=== PATIENT | male | born 1960 | race Caucasian/White ===

== ENCOUNTER 2019-12-02 09:02 | Inpatient (IN) | payer BC, MEDICAID ==
[~2019-12-02] VITALS: Ht 167.6 cm; Wt 73.0 kg
[2019-12-02 08:58] VITALS: BP 103/52
--- NOTE | 2019-12-02 09:00 | NUR ---
ED Nurse Note: pT ARRIVED WITH RA 861 DUE TO BURNING UPON URINATION. PT STATES HE HAS UETHRAL CANCER. PT HAS SUPRAPUBIC CATH, APPEARS TO BE INFECTED WITH FOULD SMELL AND WHITE-YELLOWISH DRAINAGE. PT REPORTS IT HAS BEEN LIKE THIS FOR MONTHS. PT APPEARS TO HAVE NO PENILE GLAND
[2019-12-02] MEDS ORDERED: HIV med (09:14)
[2019-12-02] MEDS ORDERED: ALEVE220 M2 PO (09:14)
[2019-12-02] MEDS ORDERED: NORCO 10-325 T1 EACH ORAL (09:14)
[2019-12-02] MEDS ORDERED: Omnipaque-300 100ml vial INJ ONE (09:15)
[2019-12-02] MEDS ORDERED: Vancomycin 1 GM in NS 275 ML IV ONE (09:15)
[2019-12-02] MEDS ORDERED: Piperacillin/Tazobactam 3.375 GM in NS 110 ML IVPB ONE (09:15)
--- NOTE | 2019-12-02 09:17 | Emergency Room Report ---
History of Present Illness General Chief Complaint: Male Urogenital Problems Source: Patient Present Illness HPI Disclaimer: Please note that this report is being documented using DRAGON technology. This can lead to erroneous entry secondary to incorrect interpretation by the dictating instrument. HPI: 59-year-old male history of HIV on retroviral therapy, urethral cancer brought in for evaluation of penile discharge and groin pain. Patient has undergone chemotherapy, immunotherapy, radiation therapy for treatment of urethral cancer. He has a suprapubic catheter in place. Reports increased purulent output as well as pain in the scrotum and groin with increased purulent drainage. He has a prior history of fistulous around the penis. Was scheduled to see infectious disease specialist but is not yet been able to make an appointment. Denies fever, chills, vomiting. Denies chest pain, shortness of breath, cough. 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 EOMI. Cardiovascular: Mildly tachycardic. S1 and S2 normal. No murmur appreciated Resp: Normal work of breathing. No cough, wheezing or crackles appreciated Abdomen: Abdomen is soft, nondistended. Suprapubic catheter in place with mild surrounding erythema and crusted skin around the ostomy. Somewhat purulent and cloudy appearing urine. : The penis is somewhat necrotic in appearance with purulent drainage on all sides. Tender to palpation with surrounding erythema and edema in the groin. Scrotum is edematous and erythematous. Skin: Intact. No abrasions, laceration or rash over the exposed skin MSK: Normal tone and bulk. Moving all extremities. No obvious deformity. Neuro: Awake and alert. Mentating appropriately. Procedures Critical Care Time Critical Care Time Total critical care time: Approximately 45 minutes Due to a high probability of clinically significant, life threatening deterioration, the patient required the highest level of preparedness to intervene emergently and I personally spent this critical care time directly and personally managing the patient. This critical care time included obtaining a history, examining the patient, pulse oximetry, ordering and reviewing studies, ordering treatments, evaluating response to treatment and updating management plan as needed, frequent reassessment and discussion with other providers as we ll as arranging for ultimate disposition. This critical to care time was performed to assess and manage the high probability of life-threatening deterioration that could result in multiorgan failure. This critical care time is separate from the separately billable procedures and treating other patients. Medical Decision Making Diagnostic Impression: Primary Impression: Abscess Additional Impressions: Sepsis Catheter-associated urinary tract infection ER Course 59-year-old male with history of HIV currently undergoing treatment for urethral cancer with suprapubic catheter in place presents for evaluation of groin pain and drainage. Concern for sepsis, abscess, multiple fistulas, necrotizing infection, UTI among others. IV line established patient receiving sepsis level fluids, broad-spectrum antibiotics, culture sent as well as broad labs. White count elevated. Lactate within normal limits. CT pending. The patient received broad-spectrum antibiotics, IV fluids and was pancultured. Urine appears grossly infected. Patient require admission for further care. Admitted to panel physician, Dr. Flores Laboratory Tests Test 12/02/19 09:10 12/02/19 09:20 White Blood Count 11.5 K/UL (4.8-10.8) H Red Blood Count 2.14 M/UL (4.70-6.10) L Hemoglobin 7.9 G/DL (14.2-18.0) L Hematocrit 20.3 % (42.0-52.0) L Mean Corpuscular Volume 95 FL (80-99) Mean Corpuscular Hemoglobin 37.0 PG (27.0-31.0) H Mean Corpuscular Hemoglobin Concent 38.9 G/DL (32.0-36.0) H Red Cell Distribution Width 18.3 % (11.6-14.8) H Platelet Count 567 K/UL (150-450) H Mean Platelet Volume 5.4 FL (6.5-10.1) L Neutrophils (%) (Auto) % (45.0-75.0) Lymphocytes (%) (Auto) % (20.0-45.0) Monocytes (%) (Auto) % (1.0-10.0) Eosinophils (%) (Auto) % (0.0-3.0) Basophils (%) (Auto) % (0.0-2.0) Differential Total Cells Counted 100 Neutrophils % (Manual) 84 % (45-75) H Lymphocytes % (Manual) 8 % (20-45) L Monocytes % (Manual) 7 % (1-10) Eosinophils % (Manual) 1 % (0-3) Basophils % (Manual) 0 % (0-2) Band Neutrophils 0 % (0-8) Platelet Estimate Increased H Platelet Morphology Normal Anisocytosis 1+ Prothrombin Time 11.7 SEC (9.30-11.50) H Prothrombin Time INR 1.1 (0.9-1.1) Activated Partial Thromboplast Time 34 SEC (23-33) H Sodium Level 134 MMOL/L (136-145) L Potassium Level 3.5 MMOL/L (3.5-5.1) Chloride Level 98 MMOL/L (98-107) Carbon Dioxide Level 26 MMOL/L (21-32) Anion Gap 10 mmol/L (5-15) Blood Urea Nitrogen 19 mg/dL (7-18) H Creatinine 1.3 MG/DL (0.55-1.30) Estimated Glomerular Filtration Rate 56.3 mL/min (>60) Glucose Level 103 MG/DL (74-106) Lactic Acid Level 1.10 mmol/L (0.4-2.0) Calcium Level 10.0 MG/DL (8.5-10.1) Phosphorus Level 2.8 MG/DL (2.5-4.9) Magnesium Level 1.9 MG/DL (1.8-2.4) Total Bilirubin 0.3 MG/DL (0.2-1.0) Aspartate Amino Transferase (AST) 41 U/L (15-37) H Alanine Aminotransferase (ALT) 28 U/L (12-78) Alkaline Phosphatase 72 U/L (46-116) Total Creatine Kinase 406 U/L (26-308) H Creatine Kinase MB 12.5 NG/ML (0.0-3.6) H Creatine Kinase MB Relative Index 3.0 Troponin I 0.000 ng/mL (0.000-0.056) Total Protein 7.1 G/DL (6.4-8.2) Albumin 2.6 G/DL (3.4-5.0) L Globulin 4.5 g/dL Albumin/Globulin Ratio 0.6 (1.0-2.7) L Urine Color Pale yellow Urine Appearance Clear Urine pH 5 (4.5-8.0) Urine Specific [place] 1.015 (1.005-1.035) Urine Protein Negative (NEGATIVE) Urine Glucose (UA) Negative (NEGATIVE) Urine Ketones Negative (NEGATIVE) Urine Blood 1+ (NEGATIVE) H Urine Nitrite Positive (NEGATIVE) H Urine Bilirubin Negative (NEGATIVE) Urine Urobilinogen Normal MG/DL (0.0-1.0) Urine Leukocyte Esterase 3+ (NEGATIVE) H Urine RBC 0-2 /HPF (0 - 0) H Urine WBC 5-10 /HPF (0 - 0) H Urine Squamous Epithelial Cells None /LPF (NONE/OCC) Urine Bacteria Moderate /HPF (NONE) H EKG Diagnostic Results Troponin ordered: Yes When was troponin ordered?: Dec 02, 2019 EKG Time: 09:25 Rate: tachycardiac Rhythm: NSR ST Segments: no acute changes Other Impression Sinus rhythm, normal axis, prolonged QTc interval at [address] segment changes Rhythm Strip Diag. Results Rhythm Strip Time: 09:25 EP Interpretation: yes Rate: 99 Rhythm: NSR, no PVC's, no ectopy Last Vital Signs Date Time Temp Pulse Resp B/P (MAP) Pulse Ox O2 Delivery O2 Flow Rate FiO2 12/02/19 08:58 98.3 105 18 103/52 99 Room Air Disposition: ADMITTED INPATIENT Condition: Serious Tyson Caraballo MD Dec 02, 2019 09:17
--- NOTE | 2019-12-02 09:20 | NUR ---
ED Nurse Note: BLOOD AND URINE SPECIMEN SENT TO LAB
[2019-12-02] MEDS ORDERED: Sodium Chloride 2,200 ML IVLG ONE (09:30)
[2019-12-02 09:33] LABS: HEMATOCRIT 20.3 % (42.0-52.0); HEMOGLOBIN 7.9 G/DL (14.2-18.0); MEAN CORPUSCULAR VOLUME 95 FL (80-99); PLATELET COUNT 567 K/UL (150-450); RED BLOOD COUNT 2.14 M/UL (4.70-6.10); RED CELL DISTRIBUTION WIDTH 18.3 % (11.6-14.8); WHITE BLOOD COUNT 11.5 K/UL (4.8-10.8)
[2019-12-02] MEDS ORDERED: HYDROcodone/Acetamin 10/325 tab ONE (09:33)
[2019-12-02 09:41] LABS: CREATININE 1.3 MG/DL (0.55-1.30); POTASSIUM 3.5 MMOL/L (3.5-5.1)
[2019-12-02] MEDS ORDERED: HYDROcodone/Acetamin 10/325 tab ORAL ONE (09:45)
[2019-12-02 09:46] LABS: INR 1.1 (0.9-1.1)
[2019-12-02 09:55] LABS: ALBUMIN 2.6 G/DL (3.4-5.0); ALBUMIN/GLOBULIN RATIO 0.6 (1.0-2.7); BILIRUBIN,TOTAL 0.3 MG/DL (0.2-1.0); CKMB 12.5 NG/ML (0.0-3.6); PHOSPHORUS 2.8 MG/DL (2.5-4.9)
[2019-12-02 10:30] LABS: APPEARANCE,URINE CLEAR; BILIRUBIN, URINE NEGATIVE (NEGATIVE); COLOR,URINE PALE YELLOW; GLUCOSE, URINE (UA) NEGATIVE (NEGATIVE); KETONES,URINE NEGATIVE (NEGATIVE); LEUKOCYTE ESTERASE ,URINE 3+ (NEGATIVE); NITRITE,URINE POSITIVE (NEGATIVE); PH,URINE 5 (4.5-8.0); PROTEIN,URINE NEGATIVE (NEGATIVE); UROBILINOGEN,URINE NORMAL MG/DL (0.0-1.0)
--- NOTE | 2019-12-02 10:31 | NUR ---
ED Nurse Note: pt RETURNED FROM CT
--- NOTE | 2019-12-02 11:01 | NUR ---
ED Nurse Note: Pt in bed asleep
[2019-12-02 11:17] VITALS: BP 107/58
--- NOTE | 2019-12-02 11:53 | Diagnostic Imaging Report ---
EXAM: CT CT Abdomen Pelvis w/Contrast INDICATION: History of urethral cancer status post chemotherapy and radiation therapy. Groin pain and penile discharge. Purulent output from suprapubic catheter. COMPARISON: None TECHNIQUE: Axial images were obtained through the abdomen pelvis with intravenous contrast. Sagittal and coronal reformats are generated. All CT scans at this facility are performed using dose modulation techniques as appropriate to a performed exam including the following: automated exposure control with adjustment of the mA and/or kV according to patient size. RADIATION DOSE: CTDIvol: 5.1 mGy DLP: 290.1 mGy-cm Dose information generated by the CT scanner is available in PACS. FINDINGS: The lung bases are clear. The liver and spleen are homogeneous. Gallbladder is without sludge or stone and there is no wall thickening. The pancreas is unremarkable. Adrenals are normal in morphology. The kidneys are normal in size, shape and axis. Small bowel loops are nondistended. Increased stool lucencies noted throughout the colon. The appendix is not visualized. There is no free fluid or free air. No pathologic adenopathy demonstrated. There is a suprapubic catheter identified in the bladder which otherwise appears unremarkable. It is difficult to define normal anatomy in the region of the patient's penis lobulated soft tissue density noted perhaps reflecting the patient's primary malignancy. There appears to be an anterior open wound. Mottled fluid and air lucency noted tracking to the base of the penis. The entire conglomeration measures 9.6 x 6.2 cm and it is difficult to separate from possible focal mass or infection. Some fluid is identified in the scrotum. IMPRESSION: SIGNIFICANT ALTERATION OF NORMAL ANATOMY IN THE REGION OF THE PATIENT'S PENIS WITH LOBULATED SOFT TISSUE DENSITY, FLUID DENSITY AND MOTTLED TRACKING AIR LUCENCIES EXTENDING TO THE BASE OF THE PENIS. THERE APPEARS TO BE AN ANTERIOR OPEN WOUND. FINDINGS LIKELY REFLECT COMBINATION OF THE PATIENT'S PRIMARY MALIGNANCY AND POSSIBLE SUPERIMPOSED INFECTION. SUPRAPUBIC CATHETER IN PLACE.
--- NOTE | 2019-12-02 12:07 | NUR ---
ED Nurse Note: Pt has no change in status, pt still asleep snoring. pt vss, additional blanket provided, lights dimmed for pt comfort.
[2019-12-02 13:02] VITALS: BP 103/52
--- NOTE | 2019-12-02 13:24 | NUR ---
ED Nurse Note: REPORT GIVEN TO MADAN RILEY FOR CONTINUITY OF CARE
--- NOTE | 2019-12-02 13:24 | NUR ---
TRANSFER TO FLOOR: Patient transferred to [facility] as ordered, per ERMD. Report given to MADAN ECKERT. Belongings given to PT.
--- NOTE | 2019-12-02 14:09 | NUR ---
NURSE NOTES: Report received from Key HAGER. Patient admitted from ER, AxOx4, not in distress, pt reports pain on movement in the crotch area radiating to the back, last given PO [place] in ER at 9am. Hooked to telemetry box. PIV on left AC patent and intact. Suprapubic catheter noted on left lower abdomen, draining foul-smelling yellow urine to urine leg bag. Bag changed and replaced with adame bag. Skin is intact. Penile area noted with necrotic tissue and slough like tissue surrounding glans. Scrotum edematous, skin around groin noted with erythema and warm to touch. Dr. Flores informed of admission and awaiting orders. Bed low and locked, siderails up x2, alarms on zone 1, call light placed within reach and instructed to call nurse for assistance. Will continue with plan of care.
[2019-12-02] MEDS ORDERED: HYDROcodone/Acetamin 5/325 tab ORAL PRN (15:00)
[2019-12-02] MEDS: HYDROcodone/Acetamin 10/325 tab ORAL PRN (15:25)
[2019-12-02] MEDS: Piperacillin/Tazobactam 3.375 GM in NS 110 ML IVPB SCH (16:19)
[2019-12-02] MEDS ORDERED: valACYclovir HCL 500mg tab ORAL SCH (18:22)
[2019-12-02] MEDS: SYMTUZA ORAL SCH (18:43)
--- NOTE | 2019-12-02 19:11 | NUR ---
NURSE HAND-OFF REPORT: Important Events on Shift: Wound noted and culture sent Patient Status: stable Diet: reg Pending Orders: n/a Pending Results/Labs: n/a Pending MD notification:n/a Latest Vital Signs: Temperature 98.4 , Pulse 90 , B/P 110 /56 , Respiratory Rate 19 , O2 SAT 100 , Room Air, O2 Flow Rate . Vital Sign Comment: stable EKG Rhythm: Sinus Rhythm Rhythm change?: N MD Notified?: - MD Response: Latest Rahman Fall Score: 20 Fall Risk: Low Risk Safety Measures: Call light Within Reach, Bed Alarm Zone 1, Side Rails Side Rails x2, Bed position Low and Locked. Fall Precautions: Patient Fall Education Report given to Dede RN.
--- NOTE | 2019-12-02 19:15 | NUR ---
NURSE NOTES: Pt received from MADAN Garcia and MADAN Rider alert and oriented x4. On room air with no acute s/s of distress at the bedside. Suprapubic catheter draining to yellow urine, with notable necrosis and slough on penis and surrounding structures. IV site asymptomatic and patent on L ac 18g, running to Zosyn as ordered. Bed in lowest position, bed alarm on. Educated pt on fall precautions, pt verbalized understanding. driver sales on - Sinus Rhythm (90s). Call light and belongings within reach.
[2019-12-02 20:00] VITALS: BP 104/56
[2019-12-02] MEDS: Vancomycin 750 MG in NS 275 ML IVPB SCH (20:19)
[2019-12-02] MEDS: valACYclovir HCL 500mg tab ORAL SCH (20:19)
[2019-12-02] MEDS: Heparin 5000 units/ml inj SUBQ SCH (20:20)
--- NOTE | 2019-12-02 21:43 | NUR ---
NURSE NOTES: Notified by MADAN Rider that inpatient med pharmacy tags were unable to be placed in chart during the morning. This RN printed out pharmacy tags (#[id number], #[id number]) accordingly and placed in patient's chart.
--- NOTE | 2019-12-02 23:30 | History and Physical Report ---
DATE OF ADMISSION: 12/02/2019 REASON FOR ADMISSION: History of urethral cancer with suprapubic catheter with purulent drainage. HISTORY OF PRESENT ILLNESS: This is a 59-year-old male with history of HIV, on retroviral therapy. The patient is with a history of urethral cancer. The patient with significant discharge, groin pain. The patient has undergone chemotherapy, maintenance therapy, radiation therapy, currently has a suprapubic catheter in place. The patient notes a fair amount of output from the fistula around the penis. PAST MEDICAL HISTORY: Notable for urethral cancer, HIV, status post the above, history of suprapubic catheter. ALLERGIES: Codeine. SOCIAL HISTORY: Reviewed. Nonsmoker and nondrinker. Disabled. PHYSICAL EXAMINATION: GENERAL: The patient is an ill-appearing male. VITAL SIGNS: Reviewed. Blood pressure 110/36, pulse 83, respirations 19, temperature 94. HEENT: Negative. NECK: Supple. No adenopathy. LUNGS: Fairly clear overall. CARDIAC: S1, S2. Regular rate and rhythm. ABDOMEN: Soft, nontender. GENITOURINARY: Significant penile discharge, suprapubic catheter. EXTREMITIES: No cyanosis, clubbing, or edema. LABORATORY DATA: Reviewed. Albumin is 2.6. Hemoglobin 7.9, white count 11.5, platelets of 567. CT with an open wound reflecting primary malignancy and possible superimposed infection. IMPRESSION: Penile abscess, possible sepsis, catheter-associated urinary tract infection, status post chemotherapy, radiation therapy for urethral cancer, HIV. RECOMMENDATION: IV antibiotics. ID evaluation. Surgical evaluation. Consider urological evaluation. DVT prophylaxis. Pain control. Follow up labs and exam. Monitor nutrition. Stabilize and discharge once improved. Amado Flores M.D. DR: GENE JOB#: [id number] CC: MARQUES
[2019-12-03] VITALS: BP 104/54
[2019-12-03] MEDS: Piperacillin/Tazobactam 3.375 GM in NS 110 ML IVPB SCH ×3 (00:17→16:42)
--- NOTE | 2019-12-03 00:20 | NUR ---
NURSE NOTES: Pt's temperature elevated during VS check at 0000 - 102.0. RN administered Tylenol 650 mg PRN and administered cooling measures. Will reassess temperature at a later time, will continue to monitor pt.
--- NOTE | 2019-12-03 01:33 | NUR ---
NURSE NOTES: Temperature reassessed - 100.2.
[2019-12-03 07:18] LABS: CALCIUM 8.6 MG/DL (8.5-10.1); CREATININE 1.3 MG/DL (0.55-1.30); POTASSIUM 3.4 MMOL/L (3.5-5.1)
--- NOTE | 2019-12-03 07:20 | NUR ---
NURSE HAND-OFF REPORT: Important Events on Shift: Patient had elevated temperature of 102.0 at 0017, administered Tylenol and cooling measures. Patient Status: Stable Diet: Regular Pending Orders: N/A Pending Results/Labs: N/A Pending MD notification: N/A Latest Vital Signs: Temperature 100.2 , Pulse 89 , B/P 104 /54 , Respiratory Rate 20 , O2 SAT 97 , Room Air, O2 Flow Rate . Vital Sign Comment: WNL EKG Rhythm: Sinus Rhythm Rhythm change?: N MD Notified?: - MD Response: Latest Rahman Fall Score: 20 Fall Risk: Low Risk Safety Measures: Call light Within Reach, Bed Alarm Zone 2, Side Rails Side Rails x2, Bed position Low and Locked. Fall Precautions: Yes Yellow Socks Yellow Gown Door Sign Patient Fall Education Report given to MADAN Dupont.
--- NOTE | 2019-12-03 07:42 | NUR ---
NURSE NOTES: Report received from Paulo HAGER. Patient awake and alert x4, not in distress, no pain, now afebrile. PIV on MICHELLE patent and intact. Suprapubic catheter noted secured and draining well. Bed low and locked, siderails up x2, call light placed within reach. Will continue to monitor.
[2019-12-03] MEDS: SYMTUZA ORAL SCH (08:14)
[2019-12-03] MEDS: valACYclovir HCL 500mg tab ORAL SCH (08:14)
[2019-12-03] MEDS: HYDROcodone/Acetamin 10/325 tab ORAL PRN ×3 (08:16→18:20)
[2019-12-03] MEDS: Heparin 5000 units/ml inj SUBQ SCH ×2 (08:18→21:22)
[2019-12-03 08:25] LABS: HEMATOCRIT 21.8 % (42.0-52.0); HEMOGLOBIN 7.2 G/DL (14.2-18.0); MEAN CORPUSCULAR VOLUME 87 FL (80-99); PLATELET COUNT 482 K/UL (150-450); RED BLOOD COUNT 2.49 M/UL (4.70-6.10); RED CELL DISTRIBUTION WIDTH 15.1 % (11.6-14.8); WHITE BLOOD COUNT 9.8 K/UL (4.8-10.8)
--- NOTE | 2019-12-03 08:29 | NUR ---
NURSE NOTES: Left message on answering service of Dr. Amado Flores notifying that patient is requesting additional pain medication.
[2019-12-03] MEDS ORDERED: HYDROcodone/Acetamin 10/325 tab ORAL PRN (08:45)
--- NOTE | 2019-12-03 08:49 | General Progress Note ---
Subjective Allergies: Coded Allergies: CODEINE (Verified Allergy, Unknown, 02/05/10) Subjective has pain noted fevers Objective Last 24 Hour Vital Signs Date Time Temp Pulse Resp B/P (MAP) Pulse Ox O2 Delivery O2 Flow Rate FiO2 12/03/19 04:00 89 12/03/19 01:34 100.2 12/03/19 00:47 100.2 12/03/19 00:00 99 12/03/19 00:00 102.0 101 20 104/54 (71) 97 12/02/19 21:00 Room Air 12/02/19 20:00 96 12/02/19 20:00 98.9 97 20 104/56 (72) 95 12/02/19 16:00 90 12/02/19 14:07 Room Air 12/02/19 13:25 98.4 82 19 110/56 100 Room Air 12/02/19 13:02 98.5 85 17 103/52 97 Room Air 12/02/19 11:17 98.2 87 15 107/58 98 Room Air 12/02/19 10:04 98.3 12/02/19 08:58 98.3 105 18 103/52 99 Room Air 12/02/19 08:56 105 18 103/52 (69) 99 Room Air Intake and Output 12/02/19 12/03/19 19:00 07:00 Intake Total 2705 ml 586.666 ml Output Total 0 ml Balance 2705 ml 586.666 ml Intake Oral 120 ml IV Total 2585 ml 586.666 ml Output Urine Total 0 ml Laboratory Tests 12/02/19 09:10: White Blood Count 11.5H, Red Blood Count 2.14L, Hemoglobin 7.9L, Hematocrit 20.3L, Mean Corpuscular Volume 95, Mean Corpuscular Hemoglobin 37.0H, Mean Corpuscular Hemoglobin Concent 38.9H, Red Cell Distribution Width 18.3H, Platelet Count 567H, Mean Platelet Volume 5.4L, Neutrophils (%) (Auto) , Lymphocytes (%) (Auto) , Monocytes (%) (Auto) , Eosinophils (%) (Auto) , Basophils (%) (Auto) , Differential Total Cells Counted 100, Neutrophils % (Manual) 84H, Lymphocytes % (Manual) 8L, Monocytes % (Manual) 7, Eosinophils % (Manual) 1, Basophils % (Manual) 0, Band Neutrophils 0, Platelet Estimate IncreasedH, Platelet Morphology Normal, Anisocytosis 1+, Prothrombin Time 11.7H, Prothromb Time International Ratio 1.1, Activated Partial Thromboplast Time 34H, Sodium Level 134L, Potassium Level 3.5, Chloride Level 98, Carbon Dioxide Level 26, Anion Gap 10, Blood Urea Nitrogen 19H, Creatinine 1.3, Estimat Glomerular Filtration Rate 56.3, Glucose Level 103, Lactic Acid Level 1.10, Calcium Level 10.0, Phosphorus Level 2.8, Magnesium Level 1.9, Total Bilirubin 0.3, Aspartate Amino Transf (AST/SGOT) 41H, Alanine Aminotransferase (ALT/SGPT) 28, Alkaline Phosphatase 72, Total Creatine Kinase 406H, Creatine Kinase MB 12.5H, Creatine Kinase MB Relative Index 3.0, Troponin I 0.000, Total Protein 7.1, Albumin 2.6L, Globulin 4.5, Albumin/Globulin Ratio 0.6L 12/02/19 09:20: Urine Color Pale yellow, Urine Appearance Clear, Urine pH 5, Urine Specific [place] 1.015, Urine Protein Negative, Urine Glucose (UA) Negative, Urine Ketones Negative, Urine Blood 1+H, Urine Nitrite PositiveH, Urine Bilirubin Negative, Urine Urobilinogen Normal, Urine Leukocyte Esterase 3+H, Urine RBC 0- 2H, Urine WBC 5-10H, Urine Squamous Epithelial Cells None, Urine Bacteria ModerateH 12/03/19 06:32: White Blood Count 9.8, Red Blood Count 2.49L, Hemoglobin 7.2L, Hematocrit 21.8L, Mean Corpuscular Volume 87#, Mean Corpuscular Hemoglobin 28.8, Mean Corpuscular Hemoglobin Concent 32.9, Red Cell Distribution Width 15.1H, Platelet Count 482H, Mean Platelet Volume 5.1L, Neutrophils (%) (Auto) , Lymphocytes (%) (Auto) , Monocytes (%) (Auto) , Eosinophils (%) (Auto) , Basophils (%) (Auto) , Neutrophils % (Manual) [Pending], Lymphocytes % (Manual) [Pending], Platelet Estimate [Pending], Platelet Morphology [Pending], Sodium Level 136, Potassium Level 3.4L, Chloride Level 103, Carbon Dioxide Level 27, Anion Gap 6, Blood Urea Nitrogen 13, Creatinine 1.3, Estimat Glomerular Filtration Rate 56.3, Glucose Level 102, Calcium Level 8.6 Height (Feet): 5 Height (Inches): 6.00 Weight (Pounds): 161 Objective alert penile dc Assessment/Plan Assessment/Plan: Penile abscess, possible sepsis, catheter-associated urinary tract infection, status post chemotherapy, radiation therapy for urethral cancer, HIV. PLAN care noted iv antibiotics surgical follow up pain control dc once infection cleared ID eval impression, plan, and exam edited and reviewed in detail care discussed with Amado Beaulieu MD Dec 03, 2019 08:49
[2019-12-03] MEDS ORDERED: SYMTUZA ORAL SCH (09:00)
--- NOTE | 2019-12-03 10:15 | NUR ---
NURSE NOTES: Blood transfusion started at 1015H. Blood checked by 2RN's. Vitals stable prior to initiation of blood transfusion. PIV on left AC patent and intact. Will monitor for adverse reactions.
[2019-12-03] MEDS: Vancomycin 750 MG in NS 275 ML IVPB SCH (10:18)
[2019-12-03 12:00] VITALS: BP 98/53
--- NOTE | 2019-12-03 13:16 | NUR ---
NURSE NOTES: 1st unit PRBC completed with no adverse reactions noted. 2nd unit of PRBC hooked at 1245H on right AC PIV. Will continue to monitor.
--- NOTE | 2019-12-03 14:17 | NUR ---
NURSE NOTES: Dr. Gross saw patient on rounds, recommending to change suprapubic catheter. Notified Dr. Li if able to change out catheter. Awaiting response.
[2019-12-03 16:00] VITALS: BP 92/54
--- NOTE | 2019-12-03 16:28 | NUR ---
NURSE HAND-OFF REPORT: Important Events on Shift:Potassium 40 MEQ PO x 1 provided, 2 units PRBC's transfused, pain medicine increased to two tabs 10/325 Organ 7-10 pain level, one tab 10/325 Organ 6-10 pain level. Patient Status: Stable Diet: Regular diet, good appetite. Pending Orders: BMP in am. Pending Results/Labs:N/A Pending MD notification:N/A. Contacted Dr. Romain Li regarding suprapubic catheter, indicated will come to see patient. Latest Vital Signs: Temperature 97.9 , Pulse 75 , B/P 92 /54 , Respiratory Rate 20 , O2 SAT 97 , Room Air, O2 Flow Rate . Vital Sign Comment: Hypotensive, asymptomatic. EKG Rhythm: Sinus Rhythm Rhythm change?: N MD Notified?: - MD Response: Latest Rahman Fall Score: 20 Fall Risk: Low Risk Safety Measures: Call light Within Reach, Bed Alarm Zone 2, Side Rails Side Rails x2, Bed position Low and Locked. Fall Precautions: Yellow Socks Yellow Gown Door Sign Patient Fall Education Report given to oncoming staff. Will amend upon arrival. Addendum: 12/03/19 at 1933 by LAURA MARINA RN Report given to Hugo Rivero RN. AM labs added. PLease leave urology cart next outside of room at door, Dr. Chas Larsen added as urology consult, seen patient.
--- NOTE | 2019-12-03 17:27 | NUR ---
CASE MANAGEMENT: INITIAL REVIEW 59 YO M BIBA FROM HOME CC: PAINFUL URINATION PMHx: HIV on retroviral therapy, urethral cancer SI:SEPSIS. PENILE ABSCESS T 98.3 HR 105 RR 18 B/P 103/52 SATS 99% ON RA LABS: WBC 11.5 HGB 7.9 HCT 20.3 BUN 19 NA 134 AST 41 TOTAL CK 406 CKMB 12.5 IS: VANCO IV X1 ZOSYN IV X1 NS BOLUS X1 NORCO PO X1 CT A/P IMPRESSION: SIGNIFICANT ALTERATION OF NORMAL ANATOMY IN THE REGION OF THE PATIENT'S PENIS WITH LOBULATED SOFT TISSUE DENSITY, FLUID DENSITY AND MOTTLED TRACKING AIR LUCENCIES EXTENDING TO THE BASE OF THE PENIS. THERE APPEARS TO BE AN ANTERIOR OPEN WOUND. FINDINGS LIKELY REFLECT COMBINATION OF THE PATIENT'S PRIMARY MALIGNANCY AND POSSIBLE SUPERIMPOSED INFECTION. SUPRAPUBIC CATHETER IN PLACE. PATIENT ADMITTED TO TELE 12/02/2019 @ 0947 DCP: HOME PLAN OF CARE: TRANSFUSE 2 UNITS PRBCs IV antibiotics. ID evaluation. Surgical evaluation. CONCURRENT REVIEW 12/03/2019 SI:SEPSIS. PENILE ABSCESS VS: T 97.9 HR 75 RR 20 B/P 92/54 SATS 97% ON RA LABS: HGB 7.2 HCT 21.8 K 3.4 IS:TRICOR PO QD VALTREX PO QD VANCO IV Q12H ZOSYN IV Q8H TELE DCP: HOME PLAN OF CARE: iv antibiotics pain control ID eval
--- NOTE | 2019-12-03 18:44 | Consultation ---
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 surgery called to evaluate and assist with care. cellulitis noted. labs reviewed, pain with catheter movement. no n/v/f/c. Allergies: Coded Allergies: CODEINE (Verified Allergy, Unknown, 02/05/10) COVID-19 Screening Contact w/high risk pt: No Experienced COVID-19 symptoms?: No Medication History Scheduled PRN Hydrocodone Bit/Acetaminophen 10-325* (Dalton 10-325*), 2 TAB ORAL Q6H PRN for For Pain, (Reported) Miscellaneous Medications Naproxen Sodium (Aleve), 220 MG PO, (Reported) [HIV med], (Reported) Patient History History Provided By: Patient, Medical Record, PMD Healthcare decision maker Resuscitation status Advanced Directive on File Past Medical/Surgical History Past Medical/Surgical History: (1) Catheter-associated urinary tract infection (2) Sepsis (3) Abscess Review of Systems Review of Symptoms General ROS: no weight loss or fever Psychological ROS: no depression or mood changes, no memory loss Ophthalmic ROS: no visual changes or eye irritation ENT ROS: no nasal congestion, hearing loss, dizziness Allergy and Immunology ROS: no allergic symptoms or urticaria Hematological and Lymphatic ROS: no swollen glands, unusual bleeding or bruising Endocrine ROS: no polyuria, polydipsia, weight changes, temperature intolerance Respiratory ROS: no cough, shortness of breath, or wheezing Cardiovascular ROS: no chest pain or dyspnea on exertion Gastrointestinal ROS: denies abdominal pain, bright red blood in stool. Musculoskeletal ROS: no myalgias or arthralgias Neurological ROS: no TIA or stroke symptoms Dermatological ROS: no new or changing skin lesions, rashes or pruritis Physical Exam Physical Exam General appearance: alert, cooperative, no distress, appears stated age Head: Normocephalic, without obvious abnormality, atraumatic Eyes: conjunctivae/corneas clear. PERRL, EOM's intact. Fundi benign Throat: Lips, mucosa, and tongue normal. Teeth and gums normal Neck: supple, symmetrical, trachea midline, no adenopathy, thyroid: not enlarged, symmetric, no tenderness/mass/nodules, no carotid bruit and no JVD Lungs: clear to auscultation bilaterally Heart: regular rate and rhythm, S1, S2 normal, no murmur, click, rub or gallop Abdomen: soft, non-tender. Bowel sounds normal. No masses, no organomegaly. suprapubic catheter. pubic cellulitis with tumor invasion and open Extremities: extremities normal, atraumatic, no cyanosis or edema Pulses: 2+ and symmetric Skin: Skin color, texture, turgor normal. No rashes or lesions Neurologic: Grossly normal Last 24 Hour Vital Signs Date Time Temp Pulse Resp B/P (MAP) Pulse Ox O2 Delivery O2 Flow Rate FiO2 12/03/19 16:00 97.9 75 20 92/54 (67) 97 12/03/19 16:00 74 12/03/19 12:00 99.3 77 18 98/53 (68) 96 12/03/19 12:00 77 12/03/19 09:00 Room Air 12/03/19 08:43 99.3 12/03/19 08:00 99 12/03/19 04:00 89 12/03/19 01:34 100.2 12/03/19 00:47 100.2 12/03/19 00:00 99 12/03/19 00:00 102.0 101 20 104/54 (71) 97 12/02/19 21:00 Room Air 12/02/19 20:00 96 12/02/19 20:00 98.9 97 20 104/56 (72) 95 Intake and Output 12/02/19 12/03/19 19:00 07:00 Intake Total 2705 ml 586.666 ml Output Total 0 ml Balance 2705 ml 586.666 ml Intake Oral 120 ml IV Total 2585 ml 586.666 ml Output Urine Total 0 ml Laboratory Tests Test 12/03/19 06:32 White Blood Count 9.8 K/UL (4.8-10.8) Red Blood Count 2.49 M/UL (4.70-6.10) L Hemoglobin 7.2 G/DL (14.2-18.0) L Hematocrit 21.8 % (42.0-52.0) L Mean Corpuscular Volume 87 FL (80-99) # Mean Corpuscular Hemoglobin 28.8 PG (27.0-31.0) Mean Corpuscular Hemoglobin Concent 32.9 G/DL (32.0-36.0) Red Cell Distribution Width 15.1 % (11.6-14.8) H Platelet Count 482 K/UL (150-450) H Mean Platelet Volume 5.1 FL (6.5-10.1) L Neutrophils (%) (Auto) % (45.0-75.0) Lymphocytes (%) (Auto) % (20.0-45.0) Monocytes (%) (Auto) % (1.0-10.0) Eosinophils (%) (Auto) % (0.0-3.0) Basophils (%) (Auto) % (0.0-2.0) Differential Total Cells Counted 100 Neutrophils % (Manual) 76 % (45-75) H Lymphocytes % (Manual) 15 % (20-45) L Monocytes % (Manual) 8 % (1-10) Eosinophils % (Manual) 1 % (0-3) Basophils % (Manual) 0 % (0-2) Band Neutrophils 0 % (0-8) Platelet Estimate Increased H Platelet Morphology Normal Red Blood Cell Morphology Normal Sodium Level 136 MMOL/L (136-145) Potassium Level 3.4 MMOL/L (3.5-5.1) L Chloride Level 103 MMOL/L (98-107) Carbon Dioxide Level 27 MMOL/L (21-32) Anion Gap 6 mmol/L (5-15) Blood Urea Nitrogen 13 mg/dL (7-18) Creatinine 1.3 MG/DL (0.55-1.30) Estimat Glomerular Filtration Rate 56.3 mL/min (>60) Glucose Level 102 MG/DL (74-106) Calcium Level 8.6 MG/DL (8.5-10.1) Height (Feet): 5 Height (Inches): 6.00 Weight (Pounds): 161 Medications Current Medications Medications (Trade) Dose Ordered Sig/Virginie Route PRN Reason Start Time Stop Time Status Last Admin Dose Admin Acetaminophen (Tylenol) 650 mg Q4H PRN ORAL Mild Pain (Pain Scale 1-3) 12/02/19 15:00 01/01/20 14:59 12/03/19 00:17 Acetaminophen/ Hydrocodone Bitart ([place] 10325) 1 tab Q4H PRN ORAL Moderate Pain (Pain Scale 4-6) 12/03/19 08:45 12/10/19 08:44 Acetaminophen/ Hydrocodone Bitart ([place] 10325) 2 tab Q4H PRN ORAL Severe Pain (Pain Scale 7-10) 12/03/19 08:45 12/10/19 08:44 12/03/19 18:20 Fenofibrate (Tricor) 145 mg DAILY ORAL 12/02/19 20:00 01/01/20 19:59 12/03/19 08:14 Heparin Sodium (Porcine) (Heparin 5000 units/ml) 5,000 units EVERY 12 HOURS SUBQ 12/02/19 21:00 01/16/20 20:59 12/03/19 08:18 Patient Own Medication (Patient's Own Med) 1 ea DAILY ORAL 12/02/19 19:00 01/01/20 18:59 12/03/19 08:14 Piperacillin Sod/ Tazobactam Sod 3.375 gm/Sodium Chloride 110 ml @ 27.5 mls/hr Q8H IVPB 12/02/19 16:00 12/09/19 15:59 12/03/19 16:42 Sodium Hypochlorite (Dakin's Quarter Strength) 1 applic DAILY TOPIC 12/04/19 09:00 01/03/20 08:59 Valacyclovir HCl (Valtrex) 500 mg DAILY ORAL 12/02/19 20:00 01/01/20 19:59 12/03/19 08:14 Vancomycin HCl (Vanco pharmacy to dose) 1 ea DAILY PRN MISC Per rx protocol 12/02/19 15:00 01/01/20 14:59 Vancomycin HCl 750 mg/Sodium Chloride 275 ml @ 183.333 mls/hr Q12H IVPB 12/02/19 21:00 12/07/19 20:59 12/03/19 10:18 Assessment/Plan Problem List: (1) Catheter-associated urinary tract infection Assessment & Plan: will plan for catheter change local wound care for necrotic malignancy iv abx as per ID thank you will follow with recs The lung bases are clear. The liver and spleen are homogeneous. Gallbladder is without sludge or stone and there is no wall thickening. The pancreas is unremarkable. Adrenals are normal in morphology. The kidneys are normal in size, shape and axis. Small bowel loops are nondistended. Increased stool lucencies noted throughout the colon. The appendix is not visualized. There is no free fluid or free air. No pathologic adenopathy demonstrated. There is a suprapubic catheter identified in the bladder which otherwise appears unremarkable. It is difficult to define normal anatomy in the region of the patient's penis lobulated soft tissue density noted perhaps reflecting the patient's primary malignancy. There appears to be an anterior open wound. Mottled fluid and air lucency noted tracking to the base of the penis. The entire conglomeration measures 9.6 x 6.2 cm and it is difficult to separate from possible focal mass or infection. Some fluid is identified in the scrotum. IMPRESSION: SIGNIFICANT ALTERATION OF NORMAL ANATOMY IN THE REGION OF THE PATIENT'S PENIS WITH LOBULATED SOFT TISSUE DENSITY, FLUID DENSITY AND MOTTLED TRACKING AIR LUCENCIES EXTENDING TO THE BASE OF THE PENIS. THERE APPEARS TO BE AN ANTERIOR OPEN WOUND. FINDINGS LIKELY REFLECT COMBINATION OF THE PATIENT'S PRIMARY MALIGNANCY AND POSSIBLE SUPERIMPOSED INFECTION. SUPRAPUBIC CATHETER IN PLACE. ICD Codes: T83.511A - Infection and inflammatory reaction due to indwelling urethral catheter, initial encounter; N39.0 - Urinary tract infection, site not specified SNOMED: 674056515 (2) Abscess Assessment & Plan: cellulitis noted pubic around tumor invasion. wash with dakins solution, apply dakins gauze and dressings bid and prn ICD Codes: L02.91 - Cutaneous abscess, unspecified SNOMED: 992865625 (3) Sepsis ICD Codes: A41.9 - Sepsis, unspecified organism SNOMED: 59543894 Romain Li Dec 03, 2019 18:44
--- NOTE | 2019-12-03 19:20 | NUR ---
NURSE NOTES: Pt received from MADAN Dupont. Pt is resting comfortably in bed and denies any pain. Pt is A/Ox4 and on bedrest with generalized weakness. Pt is on cardiac monitoring SR and asymptomatic. Pt is on RA breathing unlabored and asymptomatic. Pt has suprapubic catheter patent with skin site dry and shows no sign of infection. Pt has Right AC 20G running Zosyn antibiotic patent with skin dry and intact. Bed is locked in lowest position with call light within reach. Will continue to monitor.
[2019-12-03 20:00] VITALS: BP 93/53
--- NOTE | 2019-12-03 20:15 | Consultation ---
DATE OF CONSULTATION: 12/03/2019 CONSULTING PHYSICIAN: Chas Larsen MD. REFERRING PHYSICIAN: Amado Flores MD. REASON FOR CONSULTATION: Evaluation of suprapubic tube. HISTORY OF PRESENT ILLNESS: This is an unfortunate 59-year-old male who has a history of urethral cancer. Apparently, he has had treatment at an outside facility. He states he has been treated at [facility]. He has had chemotherapy, radiation. He has a suprapubic tube. 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 He was noted to have UTI and colonization. PAST MEDICAL HISTORY: Significant for above. He also has HIV. MEDICATIONS: Current medication list was reviewed. ALLERGIES: To codeine. PHYSICAL EXAMINATION: GENERAL: The patient is in no acute distress. VITAL SIGNS: Temperature is 97.9, blood pressure 92/54, pulse 75, respirations 20. GENITOURINARY: Suprapubic tube is in place 16-Greek. He has a penile wound with areas of necrosis that appears to be chronic. LABORATORY DATA: Reviewed. White count is 9.8, hemoglobin 7.2. BUN is 13 and creatinine 1.3. He did have urinalysis, which showed 5 to 10 wbc's, moderate bacteria. Urine culture is showing gram-negative rods, two strains. Penile culture also gram-negative rods. DIAGNOSTIC IMAGING STUDIES: The patient had a CT scan of the abdomen and pelvis, which was reviewed. Kidneys were reported normal. There was abnormality of the patient's penis with an area of conglomeration of possible mass and infection. IMPRESSION: 1. History of urethral cancer, status post chemotherapy, radiation. 2. Urinary retention with chronic suprapubic tube. 3. Probable neurogenic bladder. 4. Urinary tract infection and colonization. 5. Hematuria. PLAN AND DISCUSSION: The patient again had extensive complex urethral cancer with previous chemo and radiation. He has a penile wound and necrosis, which appears possibly dry gangrene and chronic. Suprapubic tube is in place, is draining. Apparently, it has been in place for a number of months. It needs to be exchanged. The patient did not want me to change it tonight and it will be changed at a later time when he is agreeable to it. Any further treatment for his urethral cancer will require tertiary care and I would defer that to his primary treating physician at other facility. Thank you for this consultation. Chas Larsen M.D. DR: KIKI JOB#: [id number] CC:
--- NOTE | 2019-12-03 20:15 | Consultation ---
DATE OF CONSULTATION: 12/03/2019 INFECTIOUS DISEASE CONSULTATION This consult is for coverage of Dr. Valverde. CONSULTING PHYSICIAN: Carlos Gross MD. PRIMARY ATTENDING: Amado Flores MD REASON FOR CONSULTATION: Sepsis and scrotal, penile infection. HISTORY OF PRESENT ILLNESS: This is a 59-year-old white male admitted yesterday from home complaining of penile discharge and groin pain. Discharge is foul-smelling. Patient had history of urethral cancer, underwent chemotherapy, radiation therapy, and immunotherapy. He usually goes to [facility] for care. Patient had fever of 102 at the time of admission. Had tachycardia, borderline leukocytosis. PAST MEDICAL HISTORY: HIV for many years, last CD4 count was done 6 months ago was above 200. Urethral cancer. Has suprapubic catheter. Has anemia. ALLERGIES: To codeine. MEDICATIONS: He is getting Adona, vancomycin, heparin, valacyclovir, and Zosyn. SOCIAL HISTORY: Smoker. Single. Lives alone. Denies drug and alcohol abuse. REVIEW OF SYSTEMS: Had fever yesterday. Occasional coughing. No nausea. No vomiting. Has discharge from groin area, draining groin area. PHYSICAL EXAMINATION: VITAL SIGNS: Temperature 99.3, pulse 77, blood pressure 98/53. GENERAL APPEARANCE: Seems to be well developed. Has normal weight. HEAD AND NECK: Pale conjunctivae. HEART: Normal rate. LUNGS: Clear. ABDOMEN: Soft. There is suprapubic catheter. GENITOURINARY: Has necrotic penis. Has ulceration, sinus tracts in the scrotal area with some discharge that is foul smelling. LABORATORY DATA: WBC today is 9.8, hemoglobin 7.2, hematocrit 21.8, and platelets 482. Sodium 136, potassium 3.4, chloride 103, bicarb 27, BUN 13, creatinine 1.3. CT scan of the abdomen and pelvis showed loculated tissue density, fluid density, and air lucencies at the base of penis. There appears to be an anterior open wound. Findings combination of primary malignancy and superimposed infection. IMPRESSION: Sepsis with fever and tachycardia. Has groin penile infection. Has necrotic tissue in the penile area. Has suprapubic catheter that has never been changed. Has HIV, anemia, nicotine dependence. RECOMMENDATION: Agree with vancomycin and Zosyn. Also we will continue HIV treatment. We will follow up blood culture, wound culture, and urine culture. Suggest suprapubic catheter change. At the end of my exam, I thank Dr. Flores for involving me in the care of this patient. Carlos Gross M.D. DR: FRANCIA JOB#: [id number] CC: MARQUES
--- NOTE | 2019-12-03 20:27 | CDS Physician Query ---
Clarification is required for compliance, coding accuracy, and to reflect severity of illness for this patient Dear Dr. Amado Flores M.D.. Date: 11/03/2019 CDI/CDS Name: Guillermo Cleveland Clinical Documentation Statement: 59-year-old male with history of HIV, on retroviral therapy. The patient is with a history of urethral cancer. IMPRESSION: Penile abscess, possible sepsis, catheter-associated urinary tract infection, status post chemotherapy, radiation therapy for urethral cancer, HIV. Clinical Finding Show: BMI: 26.1kg/m2 LAB (12/01) : Chem: Albumin 2.6 [3.4-5.0], lymph 920 k/ul Please select the most appropriate option: [x] Protein/Calorie Malnutrition [] Mild [] Moderate [x] Severe [x] Hypoalbuminemia [] Cachexia [] Underweight [] Intestinal malabsorption [] Other [] Unable to determine [] Not Applicable Present on Admission: [x] Yes [] No [] Clinically Undetermined Physician signature Date Please also document in your Progress Notes and/or Discharge Summary and indicate if the condition was present on admission. MTDD
[2019-12-03] MEDS: Vancomycin 1 GM in NS 275 ML IVPB SCH (21:20)
[2019-12-04] VITALS: BP 90/54
[2019-12-04] MEDS: Piperacillin/Tazobactam 3.375 GM in NS 110 ML IVPB SCH ×2 (00:12→08:09)
[2019-12-04] MEDS: HYDROcodone/Acetamin 10/325 tab ORAL PRN ×5 (00:19→20:20)
[2019-12-04 04:00] VITALS: BP 119/65
--- NOTE | 2019-12-04 07:15 | NUR ---
NURSE HAND-OFF REPORT: Important Events on Shift:Started Dakin's solution sound care. Started new dose of Vancomycin 1g. Patient Status: Stable Diet: Regular Pending Orders: Pending Results/Labs:AM Labs Pending MD notification: Latest Vital Signs: Temperature 98.1 , Pulse 80 , B/P 119 /65 , Respiratory Rate 20 , O2 SAT 92 , Room Air, O2 Flow Rate . Vital Sign Comment: VSS EKG Rhythm: Sinus Rhythm Rhythm change?: N MD Notified?: - MD Response: Latest Rahman Fall Score: 30 Fall Risk: Medium Risk Safety Measures: Call light Within Reach, Bed Alarm Zone 2, Side Rails Side Rails x2, Bed position Low and Locked. Fall Precautions: Yellow Socks Yellow Gown Door Sign Patient Fall Education Report given to MADAN Dupont.
--- NOTE | 2019-12-04 07:44 | NUR ---
NURSE NOTES: Report received from Hugo Rivero RN. Patient sitting up in bed, awake, eating breakfast, on room air, not in apparent distress. Pain treated with Putnam PRN. PIV on right AC patent and intact. Suprapubic catheter secured and draining well. Bed low and locked, siderails up x3, call light placed within reach and instructed to call nurse for assistance.
[2019-12-04] MEDS ORDERED: Morphine Sulfate 2mg/ml Inj(IV/IM USE ONLY) IVP PRN (07:55)
[2019-12-04 08:00] VITALS: BP 101/60
[2019-12-04] MEDS: valACYclovir HCL 500mg tab ORAL SCH (08:09)
[2019-12-04] MEDS: Heparin 5000 units/ml inj SUBQ SCH ×2 (08:11→20:20)
[2019-12-04] MEDS: Dakin's 0.125% Soln (Quarter Strength) 16oz TOPIC SCH (08:15)
--- NOTE | 2019-12-04 08:34 | General Progress Note ---
Subjective Allergies: Coded Allergies: CODEINE (Verified Allergy, Unknown, 02/05/10) Subjective improved pain noted fevers d/w oncologist from [facility] Objective Last 24 Hour Vital Signs Date Time Temp Pulse Resp B/P (MAP) Pulse Ox O2 Delivery O2 Flow Rate FiO2 12/04/19 06:12 98.1 12/04/19 04:00 98.1 81 20 119/65 (83) 92 12/04/19 04:00 80 12/04/19 00:00 96.6 80 20 90/54 (66) 93 12/04/19 00:00 79 12/03/19 21:00 Room Air 12/03/19 20:00 81 12/03/19 20:00 98.8 52 20 93/53 (66) 96 12/03/19 18:50 97.9 12/03/19 16:00 97.9 75 20 92/54 (67) 97 12/03/19 16:00 74 12/03/19 12:00 99.3 77 18 98/53 (68) 96 12/03/19 12:00 77 12/03/19 09:00 Room Air 12/03/19 08:43 99.3 Intake and Output 12/03/19 12/04/19 19:00 07:00 Intake Total 1135.00 ml Output Total 900 ml Balance 235.00 ml Intake Oral 360 ml IV Total 275.00 ml Blood Product 500 ml Output Urine Total 900 ml # Voids 1 # Bowel Movements 1 Laboratory Tests 12/03/19 19:50: Vancomycin Level Trough 8.1 Height (Feet): 5 Height (Inches): 6.00 Weight (Pounds): 161 Objective alert penile dc Assessment/Plan Assessment/Plan: Penile abscess, possible sepsis, catheter-associated urinary tract infection, status post chemotherapy, radiation therapy for urethral cancer, HIV. anemia PLAN care noted transfuse iv antibiotics surgical follow up pain control dc once infection cleared ID eval noted reluctant to go to snf; will discuss further impression, plan, and exam edited and reviewed in detail care discussed with Amado Beaulieu MD Dec 04, 2019 08:34
--- NOTE | 2019-12-04 08:55 | Urology Progress Note ---
Assessment/Plan Assessment/Plan: 1. History of urethral cancer, status post chemotherapy, radiation. 2. Urinary retention with chronic suprapubic tube. 3. Probable neurogenic bladder. 4. Urinary tract infection and colonization. 5. Hematuria. monitor clinically maintain SPT, change soon hand irrigated and do PRN abx as ordered further management of urethral ca per med/onc tertiary care Subjective Allergies: Coded Allergies: CODEINE (Verified Allergy, Unknown, 02/05/10) Subjective all noted Objective Last 24 Hour Vital Signs Date Time Temp Pulse Resp B/P (MAP) Pulse Ox O2 Delivery O2 Flow Rate FiO2 12/04/19 06:12 98.1 12/04/19 04:00 98.1 81 20 119/65 (83) 92 12/04/19 04:00 80 12/04/19 00:00 96.6 80 20 90/54 (66) 93 12/04/19 00:00 79 12/03/19 21:00 Room Air 12/03/19 20:00 81 12/03/19 20:00 98.8 52 20 93/53 (66) 96 12/03/19 18:50 97.9 12/03/19 16:00 97.9 75 20 92/54 (67) 97 12/03/19 16:00 74 12/03/19 12:00 99.3 77 18 98/53 (68) 96 12/03/19 12:00 77 12/03/19 09:00 Room Air Intake and Output 0 12/03/19 12/04/19 19:00 07:00 Intake Total 1135.00 ml Output Total 900 ml Balance 235.00 ml Intake Oral 360 ml IV Total 275.00 ml Blood Product 500 ml Output Urine Total 900 ml # Voids 1 # Bowel Movements 1 Microbiology Date/Time Source Procedure Growth Status 12/02/19 15:45 Penis Gram Stain - Final Resulted 12/02/19 15:45 Wound Culture - Preliminary Escherichia Coli - Esbl Resulted 12/02/19 09:20 Urine,Clean Catch Urine Culture - Preliminary Gram Negative Atilio Gram Negative Atilio#2 Resulted 12/02/19 09:10 Blood Blood Culture - Preliminary NO GROWTH AFTER 24 HOURS Resulted Current Medications Medications (Trade) Dose Ordered Sig/Virginie Route PRN Reason Start Time Stop Time Status Last Admin Dose Admin Acetaminophen (Tylenol) 650 mg Q4H PRN ORAL Mild Pain (Pain Scale 1-3) 12/02/19 15:00 01/01/20 14:59 12/03/19 00:17 Acetaminophen/ Hydrocodone Bitart ([place] 10/325) 1 tab Q4H PRN ORAL Moderate Pain (Pain Scale 4-6) 12/03/19 08:45 12/10/19 08:44 Acetaminophen/ Hydrocodone Bitart ([place] 10/325) 2 tab Q4H PRN ORAL Severe Pain (Pain Scale 7-10) 12/03/19 08:45 12/10/19 08:44 12/04/19 05:42 Fenofibrate (Tricor) 145 mg DAILY ORAL 12/02/19 20:00 01/01/20 19:59 12/04/19 08:09 Heparin Sodium (Porcine) (Heparin 5000 units/ml) 5,000 units EVERY 12 HOURS SUBQ 12/02/19 21:00 01/16/20 20:59 12/04/19 08:11 Morphine Sulfate (Morphine Sulfate) 2 mg ONCE PRN IVP PRIOR TO PROCEDURE 12/04/19 07:55 12/04/19 23:59 Patient Own Medication (Patient's Own Med) 1 ea DAILY ORAL 12/02/19 19:00 01/01/20 18:59 12/03/19 08:14 Piperacillin Sod/ Tazobactam Sod 3.375 gm/Sodium Chloride 110 ml @ 27.5 mls/hr Q8H IVPB 12/02/19 16:00 12/09/19 15:59 12/04/19 08:09 Sodium Hypochlorite (Dakin's Quarter Strength) 1 applic DAILY TOPIC 12/04/19 09:00 01/03/20 08:59 12/04/19 08:15 Valacyclovir HCl (Valtrex) 500 mg DAILY ORAL 12/02/19 20:00 01/01/20 19:59 12/04/19 08:09 Vancomycin HCl (Vanco pharmacy to dose) 1 ea DAILY PRN MISC Per rx protocol 12/02/19 15:00 01/01/20 14:59 Vancomycin HCl 1 gm/Sodium Chloride 275 ml @ 183.333 mls/hr Q12H IVPB 12/03/19 21:00 12/08/19 20:59 12/03/19 21:20 Laboratory Tests 10/22/20 19:50: Vancomycin Level Trough 8.1 12/04/19 08:45: White Blood Count [Pending], Red Blood Count [Pending], Hemoglobin [Pending], Hematocrit [Pending], Mean Corpuscular Volume [Pending], Mean Corpuscular Hemoglobin [Pending], Mean Corpuscular Hemoglobin Concent [Pending], Red Cell Distribution Width [Pending], Platelet Count [Pending], Mean Platelet Volume [Pending], Neutrophils (%) (Auto) [Pending], Lymphocytes (%) (Auto) [Pending], Monocytes (%) (Auto) [Pending], Eosinophils (%) (Auto) [Pending], Basophils (%) (Auto) [Pending], Erythrocyte Sedimentation Rate [Pending], Sodium Level [Pending], Potassium Level [Pending], Chloride Level [Pending], Carbon Dioxide Level [Pending], Blood Urea Nitrogen [Pending], Creatinine [Pending], Estimat G lomerular Filtration Rate [Pending], Glucose Level [Pending], Calcium Level [Pending], Total Bilirubin [Pending], Aspartate Amino Transf (AST/SGOT) [Pending], Alanine Aminotransferase (ALT/SGPT) [Pending], Alkaline Phosphatase [Pending], C-Reactive Protein, Quantitative [Pending], Total Protein [Pending], Albumin [Pending], Globulin [Pending] Height (Feet): 5 Height (Inches): 6.00 Weight (Pounds): 161 Objective exam stable Chas Larsen MD Dec 04, 2019 08:55
[2019-12-04 08:56] LABS: BASOPHILS % (AUTO) 0.5 % (0.0-2.0); EOSINOPHILS % (AUTO) 1.5 % (0.0-3.0); HEMATOCRIT 28.2 % (42.0-52.0); HEMOGLOBIN 9.3 G/DL (14.2-18.0); LYMPHOCYTES % (AUTO) 8.9 % (20.0-45.0); MEAN CORPUSCULAR VOLUME 91 FL (80-99); MONOCYTES % (AUTO) 8.3 % (1.0-10.0); NEUTROPHILS % (AUTO) 80.7 % (45.0-75.0); PLATELET COUNT 475 K/UL (150-450); RED BLOOD COUNT 3.11 M/UL (4.70-6.10); RED CELL DISTRIBUTION WIDTH 16.5 % (11.6-14.8); WHITE BLOOD COUNT 11.2 K/UL (4.8-10.8)
[2019-12-04] MEDS: SYMTUZA ORAL SCH (09:20)
[2019-12-04] MEDS: Vancomycin 1 GM in NS 275 ML IVPB SCH (09:22)
[2019-12-04 09:29] LABS: ALBUMIN/GLOBULIN RATIO 0.5 (1.0-2.7); BILIRUBIN,TOTAL 0.3 MG/DL (0.2-1.0); CALCIUM 8.6 MG/DL (8.5-10.1); CREATININE 1.3 MG/DL (0.55-1.30)
--- NOTE | 2019-12-04 10:11 | NUR ---
NURSE NOTES: Dr. Valverde saw patient on rounds. Notified of (+) ESBL result from wound culture.
--- NOTE | 2019-12-04 10:25 | NUR ---
NURSE NOTES: Blood transfusion intiated on left AC, PIV patent and intact. Vitals stable prior to transfusion. Will monitor for adverse effects.
--- NOTE | 2019-12-04 10:29 | Infectious Diseases Prog Note ---
Assessment/Plan Assessment/Plan antibiotics : vancomycin iv, zosyn, valtrex A 1. gram negative atilio UTI 2. scrotal wound infection with e.coli 3. urethral cancer s/p chemotherapy 4. HIV P 1. d/c iv vancomycin, zosyn 2. start meropenem 3. will follow up cultures Subjective Constitutional: Denies: fever, chills Respiratory: Denies: shortness of breath, dry cough Gastrointestinal/Abdominal: Reports: diarrhea - mild; Denies: nausea, vomiting Musculoskeletal: Reports: pain Allergies: Coded Allergies: CODEINE (Verified Allergy, Unknown, 02/05/10) Objective Last 24 Hour Vital Signs Date Time Temp Pulse Resp B/P (MAP) Pulse Ox O2 Delivery O2 Flow Rate FiO2 12/04/19 09:00 Room Air 12/04/19 08:00 97.7 83 20 101/60 (74) 90 12/04/19 08:00 90 12/04/19 06:12 98.1 12/04/19 04:00 98.1 81 20 119/65 (83) 92 12/04/19 04:00 80 12/04/19 00:00 96.6 80 20 90/54 (66) 93 12/04/19 00:00 79 12/03/19 21:00 Room Air 12/03/19 20:00 81 12/03/19 20:00 98.8 52 20 93/53 (66) 96 12/03/19 18:50 97.9 12/03/19 16:00 97.9 75 20 92/54 (67) 97 12/03/19 16:00 74 12/03/19 12:00 99.3 77 18 98/53 (68) 96 12/03/19 12:00 77 Height (Feet): 5 Height (Inches): 6.00 Weight (Pounds): 161 Respiratory/Chest: lungs clear Cardiovascular: normal rate, regular rhythm, no gallop/murmur Abdomen: soft, non tender, other - SPC Genitourinary: other - scrotal wound Microbiology Date/Time Source Procedure Growth Status 12/02/19 15:45 Penis Gram Stain - Final Resulted 12/02/19 15:45 Wound Culture - Preliminary Escherichia Coli - Esbl Resulted 12/02/19 09:20 Urine,Clean Catch Urine Culture - Preliminary Gram Negative Atilio Gram Negative Atilio#2 Resulted 12/02/19 09:10 Blood Blood Culture - Preliminary NO GROWTH AFTER 24 HOURS Resulted 12/02/19 09:10 Blood Blood Culture - Preliminary NO GROWTH AFTER 24 HOURS Resulted Laboratory Tests Test 12/03/19 19:50 12/04/19 08:45 Vancomycin Level Trough 8.1 ug/mL (5.0-12.0) White Blood Count 11.2 K/UL (4.8-10.8) H Red Blood Count 3.11 M/UL (4.70-6.10) L Hemoglobin 9.3 G/DL (14.2-18.0) L Hematocrit 28.2 % (42.0-52.0) L Mean Corpuscular Volume 91 FL (80-99) Mean Corpuscular Hemoglobin 29.9 PG (27.0-31.0) Mean Corpuscular Hemoglobin Concent 33.0 G/DL (32.0-36.0) Red Cell Distribution Width 16.5 % (11.6-14.8) H Platelet Count 475 K/UL (150-450) H Mean Platelet Volume 4.9 FL (6.5-10.1) L Neutrophils (%) (Auto) 80.7 % (45.0-75.0) H Lymphocytes (%) (Auto) 8.9 % (20.0-45.0) L Monocytes (%) (Auto) 8.3 % (1.0-10.0) Eosinophils (%) (Auto) 1.5 % (0.0-3.0) Basophils (%) (Auto) 0.5 % (0.0-2.0) Erythrocyte Sedimentation Rate 23 MM/HR (0-20) H Sodium Level 136 MMOL/L (136-145) Potassium Level 4.0 MMOL/L (3.5-5.1) Chloride Level 103 MMOL/L (98-107) Carbon Dioxide Level 27 MMOL/L (21-32) Anion Gap 6 mmol/L (5-15) Blood Urea Nitrogen 11 mg/dL (7-18) Creatinine 1.3 MG/DL (0.55-1.30) Estimat Glomerular Filtration Rate 56.3 mL/min (>60) Glucose Level 152 MG/DL (74-106) H Calcium Level 8.6 MG/DL (8.5-10.1) Total Bilirubin 0.3 MG/DL (0.2-1.0) Aspartate Amino Transf (AST/SGOT) 27 U/L (15-37) Alanine Aminotransferase (ALT/SGPT) 22 U/L (12-78) Alkaline Phosphatase 61 U/L (46-116) C-Reactive Protein, Quantitative 21.5 mg/dL (0.00-0.90) H Total Protein 5.9 G/DL (6.4-8.2) L Albumin 2.0 G/DL (3.4-5.0) L Globulin 3.9 g/dL Albumin/Globulin Ratio 0.5 (1.0-2.7) L Current Medications Medications (Trade) Dose Ordered Sig/Virginie Route PRN Reason Start Time Stop Time Status Last Admin Dose Admin Acetaminophen (Tylenol) 650 mg Q4H PRN ORAL Mild Pain (Pain Scale 1-3) 12/02/19 15:00 01/01/20 14:59 12/03/19 00:17 Acetaminophen/ Hydrocodone Bitart ([place] 10/325) 1 tab Q4H PRN ORAL Moderate Pain (Pain Scale 4-6) 12/03/19 08:45 12/10/19 08:44 Acetaminophen/ Hydrocodone Bitart ([place] 10/325) 2 tab Q4H PRN ORAL Severe Pain (Pain Scale 7-10) 12/03/19 08:45 12/10/19 08:44 12/04/19 09:42 Fenofibrate (Tricor) 145 mg DAILY ORAL 12/02/19 20:00 01/01/20 19:59 12/04/19 08:09 Heparin Sodium (Porcine) (Heparin 5000 units/ml) 5,000 units EVERY 12 HOURS SUBQ 12/02/19 21:00 01/16/20 20:59 12/04/19 08:11 Morphine Sulfate (Morphine Sulfate) 2 mg ONCE PRN IVP PRIOR TO PROCEDURE 12/04/19 07:55 12/04/19 23:59 Patient Own Medication (Patient's Own Med) 1 ea DAILY ORAL 12/02/19 19:00 01/01/20 18:59 12/04/19 09:20 Piperacillin Sod/ Tazobactam Sod 3.375 gm/Sodium Chloride 110 ml @ 27.5 mls/hr Q8H IVPB 12/02/19 16:00 12/09/19 15:59 12/04/19 08:09 Sodium Hypochlorite (Dakin's Quarter Strength) 1 applic DAILY TOPIC 12/04/19 09:00 01/03/20 08:59 12/04/19 08:15 Valacyclovir HCl (Valtrex) 500 mg DAILY ORAL 12/02/19 20:00 01/01/20 19:59 12/04/19 08:09 Vancomycin HCl (Vanco pharmacy to dose) 1 ea DAILY PRN MISC Per rx protocol 12/02/19 15:00 01/01/20 14:59 Vancomycin HCl 1 gm/Sodium Chloride 275 ml @ 183.333 mls/hr Q12H IVPB 12/03/19 21:00 12/08/19 20:59 12/04/19 09:22 Karina Valverde MD Dec 04, 2019 10:29
[2019-12-04] MEDS: Meropenem 500 MG in NS 55 ML IVPB SCH ×2 (11:21→20:19)
--- NOTE | 2019-12-04 11:22 | Surgery Progress Note ---
Surgery Progress Note Subjective Additional Comments labs noted exam stable urology input appreciated plan catheter change soon pain stable no n/v Objective Last 24 Hour Vital Signs Date Time Temp Pulse Resp B/P (MAP) Pulse Ox O2 Delivery O2 Flow Rate FiO2 12/04/19 09:00 Room Air 12/04/19 08:00 97.7 83 20 101/60 (74) 90 12/04/19 08:00 90 12/04/19 06:12 98.1 12/04/19 04:00 98.1 81 20 119/65 (83) 92 12/04/19 04:00 80 12/04/19 00:00 96.6 80 20 90/54 (66) 93 12/04/19 00:00 79 12/03/19 21:00 Room Air 12/03/19 20:00 81 12/03/19 20:00 98.8 52 20 93/53 (66) 96 12/03/19 18:50 97.9 12/03/19 16:00 97.9 75 20 92/54 (67) 97 12/03/19 16:00 74 12/03/19 12:00 99.3 77 18 98/53 (68) 96 12/03/19 12:00 77 I&O Intake and Output 12/03/19 12/04/19 19:00 07:00 Intake Total 1135.00 ml Output Total 900 ml Balance 235.00 ml Intake Oral 360 ml IV Total 275.00 ml Blood Product 500 ml Output Urine Total 900 ml # Voids 1 # Bowel Movements 1 Dressing: saturated Cardiovascular: RSR Respiratory: decreased breath sounds Abdomen: soft, non-tender, present bowel sounds, other Extremities: no edema, no tenderness, no cyanosis, other Laboratory Tests Test 12/03/19 19:50 12/04/19 08:45 Vancomycin Level Trough 8.1 ug/mL (5.0-12.0) White Blood Count 11.2 K/UL (4.8-10.8) H Red Blood Count 3.11 M/UL (4.70-6.10) L Hemoglobin 9.3 G/DL (14.2-18.0) L Hematocrit 28.2 % (42.0-52.0) L Mean Corpuscular Volume 91 FL (80-99) Mean Corpuscular Hemoglobin 29.9 PG (27.0-31.0) Mean Corpuscular Hemoglobin Concent 33.0 G/DL (32.0-36.0) Red Cell Distribution Width 16.5 % (11.6-14.8) H Platelet Count 475 K/UL (150-450) H Mean Platelet Volume 4.9 FL (6.5-10.1) L Neutrophils (%) (Auto) 80.7 % (45.0-75.0) H Lymphocytes (%) (Auto) 8.9 % (20.0-45.0) L Monocytes (%) (Auto) 8.3 % (1.0-10.0) Eosinophils (%) (Auto) 1.5 % (0.0-3.0) Basophils (%) (Auto) 0.5 % (0.0-2.0) Erythrocyte Sedimentation Rate 23 MM/HR (0-20) H Sodium Level 136 MMOL/L (136-145) Potassium Level 4.0 MMOL/L (3.5-5.1) Chloride Level 103 MMOL/L (98-107) Carbon Dioxide Level 27 MMOL/L (21-32) Anion Gap 6 mmol/L (5-15) Blood Urea Nitrogen 11 mg/dL (7-18) Creatinine 1.3 MG/DL (0.55-1.30) Estimat Glomerular Filtration Rate 56.3 mL/min (>60) Glucose Level 152 MG/DL (74-106) H Calcium Level 8.6 MG/DL (8.5-10.1) Total Bilirubin 0.3 MG/DL (0.2-1.0) Aspartate Amino Transf (AST/SGOT) 27 U/L (15-37) Alanine Aminotransferase (ALT/SGPT) 22 U/L (12-78) Alkaline Phosphatase 61 U/L (46-116) C-Reactive Protein, Quantitative 21.5 mg/dL (0.00-0.90) H Total Protein 5.9 G/DL (6.4-8.2) L Albumin 2.0 G/DL (3.4-5.0) L Globulin 3.9 g/dL Albumin/Globulin Ratio 0.5 (1.0-2.7) L Plan Problems: (1) Catheter-associated urinary tract infection Assessment & Plan: will plan for catheter change local wound care for necrotic malignancy iv abx as per ID thank you appreciate urology input will follow with recs The lung bases are clear. The liver and spleen are homogeneous. Gallbladder is without sludge or stone and there is no wall thickening. The pancreas is unremarkable. Adrenals are normal in morphology. The kidneys are normal in size, shape and axis. Small bowel loops are nondistended. Increased stool lucencies noted throughout the colon. The appendix is not visualized. There is no free fluid or free air. No pathologic adenopathy demonstrated. There is a suprapubic catheter identified in the bladder which otherwise appears unremarkable. It is difficult to define normal anatomy in the region of the patient's penis lobulated soft tissue density noted perhaps reflecting the patient's primary malignancy. There appears to be an anterior open wound. Mottled fluid and air lucency noted tracking to the base of the penis. The entire conglomeration measures 9.6 x 6.2 cm and it is difficult to separate from possible focal mass or infection. Some fluid is identified in the scrotum. IMPRESSION: SIGNIFICANT ALTERATION OF NORMAL ANATOMY IN THE REGION OF THE PATIENT'S PENIS WITH LOBULATED SOFT TISSUE DENSITY, FLUID DENSITY AND MOTTLED TRACKING AIR LUCENCIES EXTENDING TO THE BASE OF THE PENIS. THERE APPEARS TO BE AN ANTERIOR OPEN WOUND. FINDINGS LIKELY REFLECT COMBINATION OF THE PATIENT'S PRIMARY MALIGNANCY AND POSSIBLE SUPERIMPOSED INFECTION. SUPRAPUBIC CATHETER IN PLACE. (2) Abscess Assessment & Plan: cellulitis noted pubic around tumor invasion. wash with dakins solution, apply dakins gauze and dressings bid and prn (3) Sepsis Romain Li Dec 04, 2019 11:22
[2019-12-04 12:00] VITALS: BP 92/52
[2019-12-04] MEDS ORDERED: VALACYCLOVIR500 MG ORAL (14:08)
[2019-12-04] MEDS ORDERED: SYMTUZA 800-151 EACH PO (14:08)
[2019-12-04] MEDS ORDERED: FENOFIBRATE145 M1 ORAL (14:08)
[2019-12-04] MEDS ORDERED: BACLOFEN10 MG ORAL (14:25)
[2019-12-04] MEDS ORDERED: BACTRIM DS TAB1 EAC1 ORAL (14:25)
[2019-12-04] MEDS ORDERED: COLACE100 MG ORAL (14:25)
[2019-12-04] MEDS ORDERED: AMBIEN10 M1 ORAL (14:25)
--- NOTE | 2019-12-04 15:19 | NUR ---
CASE MANAGEMENT:REVIEW 12/04/19 SI: SEPSIS. PENILE ABSCESS(+) E COLI 98.8 83 20 92/52 93% ON RA WBC+11.2 H/H-9.3/28.2 IS: TRANSFUSE 2 UNITS PRBC'S IV MEROPENEM Q8HRS BACTRIM PO QD VALTREX PO QD HEPARIN SQ Q12 NORCO Q4HRS PRN : TELEMETRY ~ TRANSFER TO MED/SURG
--- NOTE | 2019-12-04 15:23 | NUR ---
NURSE NOTES: Patient received from Telemetry unit at 1500,report received from [place] RN. Pt is awake in bed, alert and oriented x 4, no SOB, bed in lowest position with bed alarm on and breaks engaged, IV line noted on left and right AC patent and intact, on room air, denies any pain or discomfort at this time, pt is having blood transfusion upon arrival to unit tolerating well, skin assessment done, no pressure ulcers noted. Belongings check done with transferring nurse. Patient oriented to room and staff, will continue to monitor and proceed with plan of care, call light within reach.
--- NOTE | 2019-12-04 15:25 | NUR ---
TRANSFER TO FLOOR: Patient transferred to 4E, per MD. Report given to Kelsy HAGER. Belongings and medications given to Kelsy Eisenberg RN. Family and or S/O informed of transfer.
[2019-12-04 16:00] VITALS: BP 105/54
--- NOTE | 2019-12-04 19:30 | NUR ---
NURSE NOTES: RECEIVED PATIENT FROM MADAN RED. PATIENT IS AWAKE, AAOX4, ON ROOM AIR, NO ACUTE DISTRESS NOTED. PIV ON LEFT ARM INTACT AND PATENT. WOUND DRESSING ON PENILE AREA CLEAN AND DRY. BED IS LOCKED AND LOW, BED ALARMS ACTIVE, SIDE RAILS UPX2 AND CALL LIGHT IS WITHIN REACH, WILL CONTINUE TO MONITOR.
--- NOTE | 2019-12-04 19:33 | NUR ---
NURSE HAND-OFF: Important Events on Shift:[blood transfusion completed, safety and comfort] Patient Status: [stable] Diet: [regular] Pending Orders: [] Pending Results/Labs:[] Pending MD notification:[] Latest Vital Signs: Temperature 97.9 , Pulse 75 , B/P 105 /54 , Respiratory Rate 20 , O2 SAT 97 , Room Air, O2 Flow Rate . Vital Sign Comment: [] Latest Rahman Fall Score: 30 Fall Risk: Medium Risk Safety Measures: Call light Within Reach, Bed Alarm Zone 2, Side Rails Side Rails x2, Bed position Low and Locked. Fall Precautions: Yellow Socks Yellow Gown Door Sign Patient Fall Education Report given to [Tejal, RN].
[2019-12-04 20:00] VITALS: BP 114/64
[2019-12-05] VITALS: BP 113/67
[2019-12-05 04:00] VITALS: BP 127/73
[2019-12-05] MEDS: Meropenem 500 MG in NS 55 ML IVPB SCH (04:35)
[2019-12-05] MEDS: HYDROcodone/Acetamin 10/325 tab ORAL PRN ×3 (04:45→20:36)
--- NOTE | 2019-12-05 07:51 | NUR ---
NURSE HAND-OFF: Important Events on ShifT: WOUND CARE, PAIN MANAGEMENT, CONTINUED WITH ANTIBIOTICS Patient Status: STABLE Diet: REGULAR Pending Orders: CHANGE SUPRAPUBIC CATH PER DR. OSULLIVAN Pending Results/Labs:CBC, BMP Pending MD notification: N/A Latest Vital Signs: Temperature 98.2 , Pulse 90 , B/P 127 /73 , Respiratory Rate 20 , O2 SAT 93 , Room Air, O2 Flow Rate . Vital Sign Comment: STABLE Latest Rahman Fall Score: 30 Fall Risk: Medium Risk Safety Measures: Call light Within Reach, Bed Alarm Zone 2, Side Rails Side Rails x2, Bed position Low and Locked. Fall Precautions: Yellow Socks Yellow Gown Door Sign Patient Fall Education Report given to MADAN ALEXANDER.
[2019-12-05 08:00] VITALS: BP 118/73
--- NOTE | 2019-12-05 08:00 | NUR ---
NURSE NOTES: Patient alert x4; on room air, no sing of distress and shortness of breath; no sing of chest pain; Suprapubic catheter in place collects yellow urine; dressing on elli-area in place; side rails up x2, breaks engaged, bed at lowest position; call light within reach; will keep monitoring.
[2019-12-05] MEDS ORDERED: Bactrim-DS 1 tab ORAL SCH (09:00)
--- NOTE | 2019-12-05 09:20 | General Progress Note ---
Subjective Allergies: Coded Allergies: CODEINE (Verified Allergy, Unknown, 02/05/10) Subjective improved pain all consultants appreciated Objective Last 24 Hour Vital Signs Date Time Temp Pulse Resp B/P (MAP) Pulse Ox O2 Delivery O2 Flow Rate FiO2 12/05/19 04:00 98.2 90 20 127/73 (91) 93 12/05/19 00:00 98.1 84 20 113/67 (82) 93 12/04/19 21:00 Room Air 12/04/19 20:00 98.8 91 18 114/64 (81) 93 12/04/19 16:00 97.9 75 20 105/54 (71) 97 12/04/19 14:16 98.8 12/04/19 12:00 98.8 83 20 92/52 (65) 93 12/04/19 12:00 83 Height (Feet): 5 Height (Inches): 6.00 Weight (Pounds): 161 Objective alert penile dc Assessment/Plan Assessment/Plan: Penile abscess, possible sepsis, catheter-associated urinary tract infection, status post chemotherapy, radiation therapy for urethral cancer, HIV. anemia PLAN care noted monitor labs iv antibiotics surgical follow up pain control dc once infection cleared ID eval noted uro noted reluctant to go to snf; will discuss further impression, plan, and exam edited and reviewed in detail care discussed with Amado Beaulieu MD Dec 05, 2019 09:20
[2019-12-05] MEDS: SYMTUZA ORAL SCH (09:32)
[2019-12-05] MEDS: valACYclovir HCL 500mg tab ORAL SCH (09:32)
[2019-12-05] MEDS: Dakin's 0.125% Soln (Quarter Strength) 16oz TOPIC SCH (09:34)
[2019-12-05] MEDS: Heparin 5000 units/ml inj SUBQ SCH ×2 (09:34→20:40)
[2019-12-05] MEDS ORDERED: Tubing IV Secondary IV ONE (09:52)
--- NOTE | 2019-12-05 10:11 | NUR ---
NURSE NOTES: Received call from Deneen from Microbiology, patient is positive for MRSA penis. Will notify RN and MD.
--- NOTE | 2019-12-05 11:13 | NUR ---
NURSE NOTES: Per Charge Nurse Philly Connors reported that patient is positive for MRSA on penis; I reported to MD Flores regarding this result; waiting for order.
[2019-12-05 12:00] VITALS: BP 115/69
--- NOTE | 2019-12-05 12:05 | NUR ---
NURSE NOTES: No new order received from MD Flores; will keep monitoring.
[2019-12-05 12:27] LABS: ANION GAP 6 mmol/L (5-15); BLOOD UREA NITROGEN 11 mg/dL (7-18); CALCIUM 9.5 MG/DL (8.5-10.1); CARBON DIOXIDE 25 MMOL/L (21-32); CHLORIDE 102 MMOL/L (98-107); CREATININE 1.2 MG/DL (0.55-1.30); POTASSIUM 4.1 MMOL/L (3.5-5.1); SODIUM 133 MMOL/L (136-145)
[2019-12-05] MEDS ORDERED: Morphine Sulfate 2mg/ml Inj(IV/IM USE ONLY) IVP SCH (12:45)
[2019-12-05 12:49] LABS: BASOPHILS % (AUTO) 0.6 % (0.0-2.0); EOSINOPHILS % (AUTO) 1.7 % (0.0-3.0); HEMATOCRIT 37.2 % (42.0-52.0); LYMPHOCYTES % (AUTO) 11.6 % (20.0-45.0); MEAN CORPUSCULAR VOLUME 87 FL (80-99); MONOCYTES % (AUTO) 10.4 % (1.0-10.0); NEUTROPHILS % (AUTO) 75.7 % (45.0-75.0); PLATELET COUNT 464 K/UL (150-450); RED BLOOD COUNT 4.26 M/UL (4.70-6.10); RED CELL DISTRIBUTION WIDTH 15.3 % (11.6-14.8); WHITE BLOOD COUNT 11.6 K/UL (4.8-10.8)
--- NOTE | 2019-12-05 13:58 | Infectious Diseases Prog Note ---
Assessment/Plan Assessment/Plan A 1. Enterobacter UTI 2. scrotal wound infection with E.coli, MRSA & Enterobacter 3. urethral cancer s/p chemotherapy 4. HIV P 1. Resume iv vancomycin, 2. Continue meropenem 3. Discontinue Bactrim Subjective ROS Limited/Unobtainable: No Constitutional: Reports: no symptoms, other - feels better Respiratory: Reports: no symptoms Cardiovascular: Reports: no symptoms Gastrointestinal/Abdominal: Reports: no symptoms Allergies: Coded Allergies: CODEINE (Verified Allergy, Unknown, 02/05/10) Objective Last 24 Hour Vital Signs Date Time Temp Pulse Resp B/P (MAP) Pulse Ox O2 Delivery O2 Flow Rate FiO2 12/05/19 12:00 97.2 83 19 115/69 (84) 93 12/05/19 10:11 97.7 12/05/19 09:00 Room Air 12/05/19 08:00 97.7 90 20 118/73 (88) 93 12/05/19 04:00 98.2 90 20 127/73 (91) 93 12/05/19 00:00 98.1 84 20 113/67 (82) 93 12/04/19 21:00 Room Air 12/04/19 20:00 98.8 91 18 114/64 (81) 93 12/04/19 16:00 97.9 75 20 105/54 (71) 97 12/04/19 14:16 98.8 Height (Feet): 5 Height (Inches): 6.00 Weight (Pounds): 161 General Appearance: no acute distress HEENT: mucous membranes moist Respiratory/Chest: lungs clear Cardiovascular: normal rate Abdomen: soft, non tender Genitourinary: other - Suprapubic catheter, penile necrotic lesion, scrotal discharge Extremities: other - legs edema Neurologic/Psychiatric: alert, oriented x 3, responsive Microbiology Date/Time Source Procedure Growth Status 12/02/19 15:45 Penis Gram Stain - Final Complete 12/02/19 15:45 Wound Culture - Final Escherichia Coli - Esbl Enterobacter Cloacae Complex Staphylococcus Aureus - Mrsa Complete Laboratory Tests Test 12/05/19 11:55 White Blood Count 11.6 K/UL (4.8-10.8) H Red Blood Count 4.26 M/UL (4.70-6.10) L Hemoglobin 12.0 G/DL (14.2-18.0) L Hematocrit 37.2 % (42.0-52.0) #L Mean Corpuscular Volume 87 FL (80-99) Mean Corpuscular Hemoglobin 28.2 PG (27.0-31.0) Mean Corpuscular Hemoglobin Concent 32.3 G/DL (32.0-36.0) Red Cell Distribution Width 15.3 % (11.6-14.8) H Platelet Count 464 K/UL (150-450) H Mean Platelet Volume 5.2 FL (6.5-10.1) L Neutrophils (%) (Auto) 75.7 % (45.0-75.0) H Lymphocytes (%) (Auto) 11.6 % (20.0-45.0) L Monocytes (%) (Auto) 10.4 % (1.0-10.0) H Eosinophils (%) (Auto) 1.7 % (0.0-3.0) Basophils (%) (Auto) 0.6 % (0.0-2.0) Sodium Level 133 MMOL/L (136-145) L Potassium Level 4.1 MMOL/L (3.5-5.1) Chloride Level 102 MMOL/L (98-107) Carbon Dioxide Level 25 MMOL/L (21-32) Anion Gap 6 mmol/L (5-15) Blood Urea Nitrogen 11 mg/dL (7-18) Creatinine 1.2 MG/DL (0.55-1.30) Estimat Glomerular Filtration Rate > 60 mL/min (>60) Glucose Level 119 MG/DL (74-106) H Calcium Level 9.5 MG/DL (8.5-10.1) Current Medications Medications (Trade) Dose Ordered Sig/Virginie Route PRN Reason Start Time Stop Time Status Last Admin Dose Admin Acetaminophen (Tylenol) 650 mg Q4H PRN ORAL Mild Pain (Pain Scale 1-3) 12/02/19 15:00 01/01/20 14:59 12/03/19 00:17 Acetaminophen/ Hydrocodone Bitart ([place] 10/325) 1 tab Q4H PRN ORAL Moderate Pain (Pain Scale 4-6) 12/03/19 08:45 12/10/19 08:44 Acetaminophen/ Hydrocodone Bitart ([place] 10/325) 2 tab Q4H PRN ORAL Severe Pain (Pain Scale 7-10) 12/03/19 08:45 12/10/19 08:44 12/05/19 09:41 Fenofibrate (Tricor) 145 mg DAILY ORAL 12/02/19 20:00 01/01/20 19:59 12/05/19 09:34 Heparin Sodium (Porcine) (Heparin 5000 units/ml) 5,000 units EVERY 12 HOURS SUBQ 12/02/19 21:00 01/16/20 20:59 12/05/19 09:34 Meropenem 1 gm/ Sodium Chloride 55 ml @ 110 mls/hr Q8H IVPB 12/05/19 13:00 12/10/19 12:59 Patient Own Medication (Patient's Own Med) 1 ea DAILY ORAL 12/02/19 19:00 01/01/20 18:59 12/05/19 09:32 Sodium Hypochlorite (Dakin's Quarter Strength) 1 applic DAILY TOPIC 12/04/19 09:00 01/03/20 08:59 12/05/19 09:34 Trimethoprim/ Sulfamethoxazole (Bactrim-DS) 1 tab DAILY ORAL 12/05/19 09:00 12/12/19 08:59 12/05/19 09:32 Valacyclovir HCl (Valtrex) 500 mg DAILY ORAL 12/02/19 20:00 01/01/20 19:59 12/05/19 09:32 Carlos Gross MD Dec 05, 2019 13:58
--- NOTE | 2019-12-05 13:59 | Urology Progress Note ---
Assessment/Plan Assessment/Plan: 1. History of urethral cancer, status post chemotherapy, radiation. 2. Urinary retention with chronic suprapubic tube. 3. Probable neurogenic bladder. 4. Urinary tract infection and colonization. 5. Hematuria. monitor clinically maintain SPT I personally removed old SPT new 16f cath placed hand irrigated and do PRN abx as ordered further management of urethral ca per med/onc tertiary care Subjective Allergies: Coded Allergies: CODEINE (Verified Allergy, Unknown, 02/05/10) Subjective all noted Objective Last 24 Hour Vital Signs Date Time Temp Pulse Resp B/P (MAP) Pulse Ox O2 Delivery O2 Flow Rate FiO2 12/05/19 12:00 97.2 83 19 115/69 (84) 93 12/05/19 10:11 97.7 12/05/19 09:00 Room Air 12/05/19 08:00 97.7 90 20 118/73 (88) 93 12/05/19 04:00 98.2 90 20 127/73 (91) 93 12/05/19 00:00 98.1 84 20 113/67 (82) 93 12/04/19 21:00 Room Air 12/04/19 20:00 98.8 91 18 114/64 (81) 93 12/04/19 16:00 97.9 75 20 105/54 (71) 97 12/04/19 14:16 98.8 Microbiology Date/Time Source Procedure Growth Status 12/02/19 15:45 Penis Gram Stain - Final Complete 12/02/19 15:45 Wound Culture - Final Escherichia Coli - Esbl Enterobacter Cloacae Complex Staphylococcus Aureus - Mrsa Complete 12/02/19 09:20 Urine,Clean Catch Urine Culture - Final Enterobacter Cloacae Complex Complete 12/02/19 09:10 Blood Blood Culture - Preliminary NO GROWTH AFTER 48 HOURS Resulted Current Medications Medications (Trade) Dose Ordered Sig/Virginie Route PRN Reason Start Time Stop Time Status Last Admin Dose Admin Acetaminophen (Tylenol) 650 mg Q4H PRN ORAL Mild Pain (Pain Scale 1-3) 12/02/19 15:00 01/01/20 14:59 12/03/19 00:17 Acetaminophen/ Hydrocodone Bitart ([place] 10/325) 1 tab Q4H PRN ORAL Moderate Pain (Pain Scale 4-6) 12/03/19 08:45 12/10/19 08:44 Acetaminophen/ Hydrocodone Bitart ([place] 10) 2 tab Q4H PRN ORAL Severe Pain (Pain Scale 7-10) 12/03/19 08:45 12/10/19 08:44 12/05/19 09:41 Fenofibrate (Tricor) 145 mg DAILY ORAL 12/02/19 20:00 01/01/20 19:59 12/05/19 09:34 Heparin Sodium (Porcine) (Heparin 5000 units/ml) 5,000 units EVERY 12 HOURS SUBQ 12/02/19 21:00 01/16/20 20:59 12/05/19 09:34 Meropenem 1 gm/ Sodium Chloride 55 ml @ 110 mls/hr Q8H IVPB 12/05/19 13:00 12/10/19 12:59 Patient Own Medication (Patient's Own Med) 1 ea DAILY ORAL 12/02/19 19:00 01/01/20 18:59 12/05/19 09:32 Sodium Hypochlorite (Dakin's Quarter Strength) 1 applic DAILY TOPIC 12/04/19 09:00 01/03/20 08:59 12/05/19 09:34 Trimethoprim/ Sulfamethoxazole (Bactrim-DS) 1 tab DAILY ORAL 12/05/19 09:00 12/12/19 08:59 12/05/19 09:32 Valacyclovir HCl (Valtrex) 500 mg DAILY ORAL 12/02/19 20:00 01/01/20 19:59 12/05/19 09:32 Laboratory Tests 12/05/19 11:55: White Blood Count 11.6H, Red Blood Count 4.26L, Hemoglobin 12.0L, Hematocrit 37.2#L, Mean Corpuscular Volume 87, Mean Corpuscular Hemoglobin 28.2, Mean Corpuscular Hemoglobin Concent 32.3, Red Cell Distribution Width 15.3H, Platelet Count 464H, Mean Platelet Volume 5.2L, Neutrophils (%) (Auto) 75.7H, Lymphocytes (%) (Auto) 11.6L, Monocytes (%) (Auto) 10.4H, Eosinophils (%) (Auto) 1.7, Basophils (%) (Auto) 0.6, Sodium Level 133L, Potassium Level 4.1, Chloride Level 102, Carbon Dioxide Level 25, Anion Gap 6, Blood Urea Nitrogen 11, Creatinine 1.2, Estimat Glomerular Filtration Rate > 60, Glucose Level 119H, Calcium Level 9.5 Height (Feet): 5 Height (Inches): 6.00 Weight (Pounds): 161 Objective exam stable Chsa Larsen MD Dec 05, 2019 13:59
--- NOTE | 2019-12-05 14:00 | NUR ---
NURSE NOTES: MD Larsen re-inserted 18 Irish supra pubic catheter; patient tolerated well;
--- NOTE | 2019-12-05 14:22 | Surgery Progress Note ---
Surgery Progress Note Subjective Additional Comments adame changed by urology states feels better labs noted no n/v Objective Last 24 Hour Vital Signs Date Time Temp Pulse Resp B/P (MAP) Pulse Ox O2 Delivery O2 Flow Rate FiO2 12/05/19 12:00 97.2 83 19 115/69 (84) 93 12/05/19 10:11 97.7 12/05/19 09:00 Room Air 12/05/19 08:00 97.7 90 20 118/73 (88) 93 12/05/19 04:00 98.2 90 20 127/73 (91) 93 12/05/19 00:00 98.1 84 20 113/67 (82) 93 12/04/19 21:00 Room Air 12/04/19 20:00 98.8 91 18 114/64 (81) 93 12/04/19 16:00 97.9 75 20 105/54 (71) 97 Dressing: saturated Cardiovascular: RSR Respiratory: decreased breath sounds Abdomen: soft, non-tender, present bowel sounds Extremities: no tenderness, no cyanosis Laboratory Tests Test 12/05/19 11:55 White Blood Count 11.6 K/UL (4.8-10.8) H Red Blood Count 4.26 M/UL (4.70-6.10) L Hemoglobin 12.0 G/DL (14.2-18.0) L Hematocrit 37.2 % (42.0-52.0) #L Mean Corpuscular Volume 87 FL (80-99) Mean Corpuscular Hemoglobin 28.2 PG (27.0-31.0) Mean Corpuscular Hemoglobin Concent 32.3 G/DL (32.0-36.0) Red Cell Distribution Width 15.3 % (11.6-14.8) H Platelet Count 464 K/UL (150-450) H Mean Platelet Volume 5.2 FL (6.5-10.1) L Neutrophils (%) (Auto) 75.7 % (45.0-75.0) H Lymphocytes (%) (Auto) 11.6 % (20.0-45.0) L Monocytes (%) (Auto) 10.4 % (1.0-10.0) H Eosinophils (%) (Auto) 1.7 % (0.0-3.0) Basophils (%) (Auto) 0.6 % (0.0-2.0) Sodium Level 133 MMOL/L (136-145) L Potassium Level 4.1 MMOL/L (3.5-5.1) Chloride Level 102 MMOL/L (98-107) Carbon Dioxide Level 25 MMOL/L (21-32) Anion Gap 6 mmol/L (5-15) Blood Urea Nitrogen 11 mg/dL (7-18) Creatinine 1.2 MG/DL (0.55-1.30) Estimat Glomerular Filtration Rate > 60 mL/min (>60) Glucose Level 119 MG/DL (74-106) H Calcium Level 9.5 MG/DL (8.5-10.1) Plan Problems: (1) Catheter-associated urinary tract infection Assessment & Plan: will plan for catheter change local wound care for necrotic malignancy iv abx as per ID thank you appreciate urology input cath changed as urology will follow with recs The lung bases are clear. The liver and spleen are homogeneous. Gallbladder is without sludge or stone and there is no wall thickening. The pancreas is unremarkable. Adrenals are normal in morphology. The kidneys are normal in size, shape and axis. Small bowel loops are nondistended. Increased stool lucencies noted throughout the colon. The appendix is not visualized. There is no free fluid or free air. No pathologic adenopathy demonstrated. There is a suprapubic catheter identified in the bladder which otherwise appears unremarkable. It is difficult to define normal anatomy in the region of the patient's penis lobulated soft tissue density noted perhaps reflecting the patient's primary malignancy. There appears to be an anterior open wound. Mottled fluid and air lucency noted tracking to the base of the penis. The entire conglomeration measures 9.6 x 6.2 cm and it is difficult to separate from possible focal mass or infection. Some fluid is identified in the scrotum. IMPRESSION: SIGNIFICANT ALTERATION OF NORMAL ANATOMY IN THE REGION OF THE PATIENT'S PENIS WITH LOBULATED SOFT TISSUE DENSITY, FLUID DENSITY AND MOTTLED TRACKING AIR LUCENCIES EXTENDING TO THE BASE OF THE PENIS. THERE APPEARS TO BE AN ANTERIOR OPEN WOUND. FINDINGS LIKELY REFLECT COMBINATION OF THE PATIENT'S PRIMARY MALIGNANCY AND POSSIBLE SUPERIMPOSED INFECTION. SUPRAPUBIC CATHETER IN PLACE. (2) Abscess Assessment & Plan: cellulitis noted pubic around tumor invasion. wash with dakins solution, apply dakins gauze and dressings bid and prn (3) Sepsis Romain Li Dec 05, 2019 14:22
[2019-12-05] MEDS: Meropenem 1 GM in NS 55 ML IVPB SCH ×2 (14:43→20:40)
--- NOTE | 2019-12-05 15:19 | NUR ---
P.T Note: P.T evaluation completed and tx initiated. Please refer to P.T evaluation for current functional status.
[2019-12-05 16:00] VITALS: BP 111/67
--- NOTE | 2019-12-05 16:17 | NUR ---
CASE MANAGEMENT:REVIEW 12/05/19 SI: SEPSIS. PENILE ABSCESS(+) E COLI 97.2 83 19 115/69 93% ON RA WBC+11.6 IS: IV VANCOMYCIN Q12 IV MEROPENEM Q8HRS IV MORPHINE X1 VALTREX PO QD : MED/SURG 4 EAST DCP: FROM HOME
[2019-12-05] MEDS: Vancomycin 1gm/D5W 275ml IVPB SCH ×2 (17:22)
--- NOTE | 2019-12-05 19:25 | NUR ---
HAND-OFF: Report given to MADAN Shah.
--- NOTE | 2019-12-05 19:28 | NUR ---
NURSE NOTES: Pt. received from MADAN Rayo. Pt. AAOx4, no room air, breathing even and unlabored on room air, no indications of respiratory distress, no active complaints of pain. IV noted left AC 20g intact and patent, saline locked. Suprapubic catheter noted, draining urine well. Bed low and locked, side rails x3 up, bed alarm active, and call light in reach.
[2019-12-05 20:00] VITALS: BP 145/82
--- NOTE | 2019-12-05 21:42 | NUR ---
NURSE NOTES: Pt. refusing overnight IV antibiotics (Merrem and Vancomycin). Consulted pt. regarding risks of refusing ordered antibiotics citing current infection. Pt. AAOx4, acknowledged education and verbalized understanding stating "I have been on this for days and need a break. I understand and will take them in the morning." Charge nurses aware and subsequently discussed with pt. and primary RN, pt. continued to refuse. Dr. Araceli Gross notified of pt's refusal.
--- NOTE | 2019-12-05 22:13 | NUR ---
NURSE NOTES: Dr. Flores notified of pt.'s refusal of IV antibiotics. No new orders.
[2019-12-06] VITALS: BP 116/72
[2019-12-06] MEDS: Vancomycin 1gm/D5W 275ml IVPB SCH ×4 (03:47→16:29)
[2019-12-06 04:00] VITALS: BP 146/65
[2019-12-06] MEDS: Meropenem 1 GM in NS 55 ML IVPB SCH ×3 (05:00→20:11)
--- NOTE | 2019-12-06 05:26 | NUR ---
NURSE NOTES: Pt. continued to refuse IV antibiotics, pt. verbalized he will resume "during the day time." Gauze applied to groin area, urine collection bag emptied, dark yellow urine and no blood clots noted.
--- NOTE | 2019-12-06 07:01 | NUR ---
NURSE HAND-OFF: Important Events on Shift:[]pt. refused PM antibiotics, MD Flores and MD Araceli Gross notified, no new orders received. Pt. requested to take a shower, endorsed to day shift nurse to request MD if allowed. Patient Status: []stable Diet: []regular Pending Orders: []na Pending Results/Labs:[]CBC CMP Pending MD notification:[]na Latest Vital Signs: Temperature 99.0 , Pulse 90 , B/P 146 /65 , Respiratory Rate 16 , O2 SAT 93 , Room Air, O2 Flow Rate . Vital Sign Comment: []stable Latest Rahman Fall Score: 45 Fall Risk: High Risk Safety Measures: Call light Within Reach, Bed Alarm Zone 1, Side Rails Side Rails x2, Bed position Low and Locked. Fall Precautions: Yellow Socks Yellow Gown Door Sign Patient Fall Education Report given to [MADAN Rayo
--- NOTE | 2019-12-06 07:29 | NUR ---
NURSE NOTES: Patient alert x4; on room air, no sing of distress and shortness of breath; no sing of chest pain; IV Left AC flushes well; Suprapubic catheter in place, collects urine, will flushes as needed; perineal area abscess noted; side rials up x2, breaks engaged, bed at lowest position, walker at the bed side and within reach; instructed patient to call for help as needed. will keep monitoring.
[2019-12-06] MEDS: HYDROcodone/Acetamin 10/325 tab ORAL PRN ×3 (07:33→20:11)
[2019-12-06 08:00] VITALS: BP 115/69
[2019-12-06 08:10] LABS: ALANINE AMINOTRANSFERASE 14 U/L (12-78); ALBUMIN 2.1 G/DL (3.4-5.0); ALBUMIN/GLOBULIN RATIO 0.5 (1.0-2.7); ALKALINE PHOSPHATASE 70 U/L (46-116); ANION GAP 9 mmol/L (5-15); ASPARTATE AMINO TRANSFERASE 22 U/L (15-37); BILIRUBIN,TOTAL 0.4 MG/DL (0.2-1.0); BLOOD UREA NITROGEN 11 mg/dL (7-18); CALCIUM 10.1 MG/DL (8.5-10.1); CARBON DIOXIDE 25 MMOL/L (21-32); CHLORIDE 103 MMOL/L (98-107); CREATININE 1.1 MG/DL (0.55-1.30); SODIUM 137 MMOL/L (136-145)
[2019-12-06] MEDS: valACYclovir HCL 500mg tab ORAL SCH (08:46)
[2019-12-06] MEDS: Heparin 5000 units/ml inj SUBQ SCH ×2 (08:47→20:31)
[2019-12-06] MEDS: SYMTUZA ORAL SCH (08:56)
[2019-12-06] MEDS: Dakin's 0.125% Soln (Quarter Strength) 16oz TOPIC SCH (08:57)
[2019-12-06 09:07] LABS: BASOPHILS % (AUTO) 0.4 % (0.0-2.0); EOSINOPHILS % (AUTO) 1.9 % (0.0-3.0); HEMOGLOBIN 12.1 G/DL (14.2-18.0); LYMPHOCYTES % (AUTO) 11.7 % (20.0-45.0); MEAN CORPUSCULAR VOLUME 88 FL (80-99); MONOCYTES % (AUTO) 10.6 % (1.0-10.0); NEUTROPHILS % (AUTO) 75.5 % (45.0-75.0); PLATELET COUNT 472 K/UL (150-450); RED BLOOD COUNT 4.33 M/UL (4.70-6.10); RED CELL DISTRIBUTION WIDTH 15.5 % (11.6-14.8); WHITE BLOOD COUNT 11.1 K/UL (4.8-10.8)
--- NOTE | 2019-12-06 10:47 | General Progress Note ---
Subjective Allergies: Coded Allergies: CODEINE (Verified Allergy, Unknown, 02/05/10) Subjective stable pain all consultants appreciated Objective Last 24 Hour Vital Signs Date Time Temp Pulse Resp B/P (MAP) Pulse Ox O2 Delivery O2 Flow Rate FiO2 12/06/19 09:00 Room Air Room Air 12/06/19 08:03 99.0 12/06/19 08:00 97.3 98 16 115/69 (84) 94 12/06/19 04:00 99.0 90 16 146/65 (92) 93 12/06/19 00:00 98.2 76 18 116/72 (87) 95 12/05/19 21:00 Room Air Room Air 12/05/19 20:00 97.8 80 16 145/82 (103) 94 12/05/19 16:00 98.2 76 18 111/67 (82) 94 12/05/19 14:30 Room Air 12/05/19 14:00 Room Air 12/05/19 13:15 97.2 12/05/19 12:00 97.2 83 19 115/69 (84) 93 Intake and Output 12/05/19 12/06/19 19:00 07:00 Intake Total 893.708 ml 400 ml Output Total 550 ml 2050 ml Balance 343.708 ml -1650 ml Intake Oral 600 ml 400 ml IV Total 293.708 ml Output Urine Total 550 ml 2050 ml Laboratory Tests 12/05/19 11:55: White Blood Count 11.6H, Red Blood Count 4.26L, Hemoglobin 12.0L, Hematocrit 37.2#L, Mean Corpuscular Volume 87, Mean Corpuscular Hemoglobin 28.2, Mean C orpuscular Hemoglobin Concent 32.3, Red Cell Distribution Width 15.3H, Platelet Count 464H, Mean Platelet Volume 5.2L, Neutrophils (%) (Auto) 75.7H, Lymphocytes (%) (Auto) 11.6L, Monocytes (%) (Auto) 10.4H, Eosinophils (%) (Auto) 1.7, Basophils (%) (Auto) 0.6, Sodium Level 133L, Potassium Level 4.1, Chloride Level 102, Carbon Dioxide Level 25, Anion Gap 6, Blood Urea Nitrogen 11, Creatinine 1.2, Estimat Glomerular Filtration Rate > 60, Glucose Level 119H, Calcium Level 9.5 12/06/19 06:35: White Blood Count 11.1H, Red Blood Count 4.33L, Hemoglobin 12.1L, Hematocrit 38.0L, Mean Corpuscular Volume 88, Mean Corpuscular Hemoglobin 28.0, Mean Corpuscular Hemoglobin Concent 31.9L, Red Cell Distribution Width 15.5H, Platelet Count 472H, Mean Platelet Volume 4.9L, Neutrophils (%) (Auto) 75.5H, Lymphocytes (%) (Auto) 11.7L, Monocytes (%) (Auto) 10.6H, Eosinophils (%) (Auto) 1.9, Basophils (%) (Auto) 0.4, Sodium Level 137, Potassium Level 4.0, Chloride Level 103, Carbon Dioxide Level 25, Anion Gap 9, Blood Urea Nitrogen 11, Creatinine 1.1, Estimat Glomerular Filtration Rate > 60, Glucose Level 89, Calcium Level 10.1, Total Bilirubin 0.4, Aspartate Amino Transf (AST/SGOT) 22, Alanine Aminotransferase (ALT/SGPT) 14, Alkaline Phosphatase 70, Total Protein 6.7, Albumin 2.1L, Globulin 4.6, Albumin/Globulin Ratio 0.5L Height (Feet): 5 Height (Inches): 6.00 Weight (Pounds): 161 Objective alert penile dc Assessment/Plan Assessment/Plan: Penile abscess, possible sepsis, catheter-associated urinary tract infection, status post chemotherapy, radiation therapy for urethral cancer, HIV. anemia PLAN care noted monitor labs iv antibiotics surgical follow up pain control dc once infection cleared ID eval noted uro noted agrees to snf dc planning impression, plan, and exam edited and reviewed in detail care discussed with Amado Beaulieu MD Dec 06, 2019 10:47
[2019-12-06 12:00] VITALS: BP 120/61
--- NOTE | 2019-12-06 13:46 | Urology Progress Note ---
Assessment/Plan Assessment/Plan: 1. History of urethral cancer, status post chemotherapy, radiation. 2. Urinary retention with chronic suprapubic tube. 3. Probable neurogenic bladder. 4. Urinary tract infection and colonization. 5. Hematuria. monitor clinically maintain SPT, last exchanged 12/04 hand irrigated and do PRN abx as ordered further management of urethral ca per med/onc tertiary care f/u on last blood cx Subjective Allergies: Coded Allergies: CODEINE (Verified Allergy, Unknown, 02/05/10) Subjective all noted Objective Last 24 Hour Vital Signs Date Time Temp Pulse Resp B/P (MAP) Pulse Ox O2 Delivery O2 Flow Rate FiO2 12/06/19 12:14 99.0 12/06/19 12:00 97.7 78 18 120/61 (80) 95 12/06/19 09:00 Room Air Room Air 12/06/19 08:03 99.0 12/06/19 08:00 97.3 98 16 115/69 (84) 94 12/06/19 04:00 99.0 90 16 146/65 (92) 93 12/06/19 00:00 98.2 76 18 116/72 (87) 95 12/05/19 21:00 Room Air Room Air 12/05/19 20:00 97.8 80 16 145/82 (103) 94 12/05/19 16:00 98.2 76 18 111/67 (82) 94 12/05/19 14:30 Room Air 12/05/19 14:00 Room Air Intake and Output 12/05/19 12/06/19 19:00 07:00 Intake Total 893.708 ml 400 ml Output Total 550 ml 2050 ml Balance 343.708 ml -1650 ml Intake Oral 600 ml 400 ml IV Total 293.708 ml Output Urine Total 550 ml 2050 ml Microbiology Date/Time Source Procedure Growth Status 12/02/19 15:45 Penis Gram Stain - Final Complete 12/02/19 15:45 Wound Culture - Final Escherichia Coli - Esbl Enterobacter Cloacae Complex Staphylococcus Aureus - Mrsa Complete 12/02/19 09:20 Urine,Clean Catch Urine Culture - Final Enterobacter Cloacae Complex Complete 12/02/19 09:10 Blood Blood Culture - Preliminary NO GROWTH AFTER 72 HOURS Resulted Current Medications Medications (Trade) Dose Ordered Sig/Virginie Route PRN Reason Start Time Stop Time Status Last Admin Dose Admin Acetaminophen (Tylenol) 650 mg Q4H PRN ORAL Mild Pain (Pain Scale 1-3) 12/02/19 15:00 01/01/20 14:59 12/03/19 00:17 Acetaminophen/ Hydrocodone Bitart ([place] 10/325) 1 tab Q4H PRN ORAL Moderate Pain (Pain Scale 4-6) 12/03/19 08:45 12/10/19 08:44 Acetaminophen/ Hydrocodone Bitart ([place] 10/325) 2 tab Q4H PRN ORAL Severe Pain (Pain Scale 7-10) 12/03/19 08:45 12/10/19 08:44 12/06/19 11:44 Fenofibrate (Tricor) 145 mg DAILY ORAL 12/02/19 20:00 01/01/20 19:59 12/06/19 08:46 Heparin Sodium (Porcine) (Heparin 5000 units/ml) 5,000 units EVERY 12 HOURS SUBQ 12/02/19 21:00 01/16/20 20:59 12/06/19 08:47 Meropenem 1 gm/ Sodium Chloride 55 ml @ 110 mls/hr Q8H IVPB 12/05/19 13:00 12/10/19 12:59 12/06/19 12:23 Patient Own Medication (Patient's Own Med) 1 ea DAILY ORAL 12/02/19 19:00 01/01/20 18:59 12/06/19 08:56 Sodium Hypochlorite (Dakin's Quarter Strength) 1 applic DAILY TOPIC 12/04/19 09:00 01/03/20 08:59 12/06/19 08:57 Valacyclovir HCl (Valtrex) 500 mg DAILY ORAL 12/02/19 20:00 01/01/20 19:59 12/06/19 08:46 Vancomycin HCl (Vanco pharmacy to dose) 1 ea DAILY PRN MISC Per rx protocol 12/05/19 14:00 01/04/20 13:59 Vancomycin HCl 1 gm/Dextrose 275 ml @ 183.708 mls/hr Q12H IVPB 12/05/19 16:00 12/10/19 15:59 12/05/19 17:22 Laboratory Tests 12/06/19 06:35: White Blood Count 11.1H, Red Blood Count 4.33L, Hemoglobin 12.1L, Hematocrit 38.0L, Mean Corpuscular Volume 88, Mean Corpuscular Hemoglobin 28.0, Mean Corpuscular Hemoglobin Concent 31.9L, Red Cell Distribution Width 15.5H, Platel et Count 472H, Mean Platelet Volume 4.9L, Neutrophils (%) (Auto) 75.5H, Lymphocytes (%) (Auto) 11.7L, Monocytes (%) (Auto) 10.6H, Eosinophils (%) (Auto) 1.9, Basophils (%) (Auto) 0.4, Sodium Level 137, Potassium Level 4.0, Chloride Level 103, Carbon Dioxide Level 25, Anion Gap 9, Blood Urea Nitrogen 11, Creatinine 1.1, Estimat Glomerular Filtration Rate > 60, Glucose Level 89, Calcium Level 10.1, Total Bilirubin 0.4, Aspartate Amino Transf (AST/SGOT) 22, Alanine Aminotransferase (ALT/SGPT) 14, Alkaline Phosphatase 70, Total Protein 6.7, Albumin 2.1L, Globulin 4.6, Albumin/Globulin Ratio 0.5L Height (Feet): 5 Height (Inches): 6.00 Weight (Pounds): 161 Objective exam stable Chas Larsen MD Dec 06, 2019 13:46
--- NOTE | 2019-12-06 13:49 | NUR ---
CASE MANAGEMENT:REVIEW 12/06/19 SI: SEPSIS. PENILE ABSCESS(+) E COLI 97.7 78 18 120/61 95% ON RA WBC+11.1 IS: IV VANCOMYCIN Q12 IV MEROPENEM Q8HRS VALTREX PO QD [place] PO Q4HRS PRN : MED/SURG 4 EAST DCP: FROM HOME PLAN: IS RECOMMENDING SNF PLACEMENT
--- NOTE | 2019-12-06 15:53 | Surgery Progress Note ---
Surgery Progress Note Subjective Additional Comments no acute events urology input noted Objective Last 24 Hour Vital Signs Date Time Temp Pulse Resp B/P (MAP) Pulse Ox O2 Delivery O2 Flow Rate FiO2 12/06/19 12:14 99.0 12/06/19 12:00 97.7 78 18 120/61 (80) 95 12/06/19 09:00 Room Air Room Air 12/06/19 08:03 99.0 12/06/19 08:00 97.3 98 16 115/69 (84) 94 12/06/19 04:00 99.0 90 16 146/65 (92) 93 12/06/19 00:00 98.2 76 18 116/72 (87) 95 12/05/19 21:00 Room Air Room Air 12/05/19 20:00 97.8 80 16 145/82 (103) 94 12/05/19 16:00 98.2 76 18 111/67 (82) 94 I&O Intake and Output 12/05/19 12/06/19 19:00 07:00 Intake Total 893.708 ml 400 ml Output Total 550 ml 2050 ml Balance 343.708 ml -1650 ml Intake Oral 600 ml 400 ml IV Total 293.708 ml Output Urine Total 550 ml 2050 ml Dressing: saturated Cardiovascular: RSR Respiratory: decreased breath sounds Abdomen: non-tender, present bowel sounds Extremities: no edema, no tenderness, no cyanosis Laboratory Tests Test 12/06/19 06:35 White Blood Count 11.1 K/UL (4.8-10.8) H Red Blood Count 4.33 M/UL (4.70-6.10) L Hemoglobin 12.1 G/DL (14.2-18.0) L Hematocrit 38.0 % (42.0-52.0) L Mean Corpuscular Volume 88 FL (80-99) Mean Corpuscular Hemoglobin 28.0 PG (27.0-31.0) Mean Corpuscular Hemoglobin Concent 31.9 G/DL (32.0-36.0) L Red Cell Distribution Width 15.5 % (11.6-14.8) H Platelet Count 472 K/UL (150-450) H Mean Platelet Volume 4.9 FL (6.5-10.1) L Neutrophils (%) (Auto) 75.5 % (45.0-75.0) H Lymphocytes (%) (Auto) 11.7 % (20.0-45.0) L Monocytes (%) (Auto) 10.6 % (1.0-10.0) H Eosinophils (%) (Auto) 1.9 % (0.0-3.0) Basophils (%) (Auto) 0.4 % (0.0-2.0) Sodium Level 137 MMOL/L (136-145) Potassium Level 4.0 MMOL/L (3.5-5.1) Chloride Level 103 MMOL/L (98-107) Carbon Dioxide Level 25 MMOL/L (21-32) Anion Gap 9 mmol/L (5-15) Blood Urea Nitrogen 11 mg/dL (7-18) Creatinine 1.1 MG/DL (0.55-1.30) Estimat Glomerular Filtration Rate > 60 mL/min (>60) Glucose Level 89 MG/DL (74-106) Calcium Level 10.1 MG/DL (8.5-10.1) Total Bilirubin 0.4 MG/DL (0.2-1.0) Aspartate Amino Transf (AST/SGOT) 22 U/L (15-37) Alanine Aminotransferase (ALT/SGPT) 14 U/L (12-78) Alkaline Phosphatase 70 U/L (46-116) Total Protein 6.7 G/DL (6.4-8.2) Albumin 2.1 G/DL (3.4-5.0) L Globulin 4.6 g/dL Albumin/Globulin Ratio 0.5 (1.0-2.7) L Plan Problems: (1) Catheter-associated urinary tract infection Assessment & Plan: will plan for catheter change local wound care for necrotic malignancy iv abx as per ID thank you appreciate urology input cath changed as urology will follow with recs The lung bases are clear. The liver and spleen are homogeneous. Gallbladder is without sludge or stone and there is no wall thickening. The pancreas is unremarkable. Adrenals are normal in morphology. The kidneys are normal in size, shape and axis. Small bowel loops are nondistended. Increased stool lucencies noted throughout the colon. The appendix is not visualized. There is no free fluid or free air. No pathologic adenopathy demonstrated. There is a suprapubic catheter identified in the bladder which otherwise appears unremarkable. It is difficult to define normal anatomy in the region of the patient's penis lobulated soft tissue density noted perhaps reflecting the patient's primary malignancy. There appears to be an anterior open wound. Mottled fluid and air lucency noted tracking to the base of the penis. The entire conglomeration measures 9.6 x 6.2 cm and it is difficult to separate from possible focal mass or infection. Some fluid is identified in the scrotum. IMPRESSION: SIGNIFICANT ALTERATION OF NORMAL ANATOMY IN THE REGION OF THE PATIENT'S PENIS WITH LOBULATED SOFT TISSUE DENSITY, FLUID DENSITY AND MOTTLED TRACKING AIR LUCENCIES EXTENDING TO THE BASE OF THE PENIS. THERE APPEARS TO BE AN ANTERIOR OPEN WOUND. FINDINGS LIKELY REFLECT COMBINATION OF THE PATIENT'S PRIMARY MALIGNANCY AND POSSIBLE SUPERIMPOSED INFECTION. SUPRAPUBIC CATHETER IN PLACE. (2) Abscess Assessment & Plan: cellulitis noted pubic around tumor invasion. wash with dakins solution, apply dakins gauze and dressings bid and prn (3) Sepsis Romain Li Dec 06, 2019 15:53
[2019-12-06 16:00] VITALS: BP 105/60
--- NOTE | 2019-12-06 19:32 | NUR ---
HAND-OFF: Report given to MADAN Brunner. Suprapubic catheter in place; patient stable at this time;
--- NOTE | 2019-12-06 19:35 | NUR ---
NURSE NOTES: Patient alert and oriented x4; on room air, no signs of shortness of breath; no s/sx chest pain; IV Left AC not patent, will change IV site. Suprapubic catheter in place, patent, yellow, will flush prn per Dr Larsen. side rails up x2, bed locked in lowest position, bed alarm on, walker at the bed side, however instructed patient to call for help as needed. will keep monitoring.
[2019-12-06 20:00] VITALS: BP 109/64
[2019-12-07 04:00] VITALS: BP 115/70
[2019-12-07] MEDS: Vancomycin 1gm/D5W 275ml IVPB SCH ×4 (05:10→15:18)
[2019-12-07] MEDS: Meropenem 1 GM in NS 55 ML IVPB SCH ×3 (05:20→20:08)
[2019-12-07] MEDS: HYDROcodone/Acetamin 10/325 tab ORAL PRN ×4 (05:27→20:36)
--- NOTE | 2019-12-07 07:39 | General Progress Note ---
Subjective Allergies: Coded Allergies: CODEINE (Verified Allergy, Unknown, 02/05/10) Subjective stable pain all consultants appreciated Objective Last 24 Hour Vital Signs Date Time Temp Pulse Resp B/P (MAP) Pulse Ox O2 Delivery O2 Flow Rate FiO2 12/07/19 05:57 97.7 12/07/19 04:00 99.0 85 20 115/70 (85) 99 12/06/19 21:00 Room Air Room Air 12/06/19 20:41 97.7 12/06/19 20:00 98.2 90 20 109/64 (79) 100 12/06/19 16:00 97.7 74 20 105/60 (75) 94 12/06/19 12:14 99.0 12/06/19 12:00 97.7 78 18 120/61 (80) 95 12/06/19 09:00 Room Air Room Air 12/06/19 08:03 99.0 12/06/19 08:00 97.3 98 16 115/69 (84) 94 Intake and Output 12/06/19 12/07/19 19:00 07:00 Intake Total 1317.416 ml 55 ml Output Total 1300 ml 2800 ml Balance 17.416 ml -2745 ml Intake Oral 840 ml IV Total 477.416 ml 55 ml Output Urine Total 1300 ml 2800 ml Height (Feet): 5 Height (Inches): 6.00 Weight (Pounds): 161 Objective alert penile dc Assessment/Plan Assessment/Plan: Penile abscess, possible sepsis, catheter-associated urinary tract infection, status post chemotherapy, radiation therapy for urethral cancer, HIV. anemia PLAN care noted monitor labs iv antibiotics surgical follow up pain control dc once infection cleared ID eval noted uro noted agrees to snf dc planning impression, plan, and exam edited and reviewed in detail care discussed with Amado Beaulieu MD Dec 07, 2019 07:39
[2019-12-07 08:00] VITALS: BP 99/58
--- NOTE | 2019-12-07 08:05 | Urology Progress Note ---
Assessment/Plan Assessment/Plan: 1. History of urethral cancer, status post chemotherapy, radiation. 2. Urinary retention with chronic suprapubic tube. 3. Probable neurogenic bladder. 4. Urinary tract infection and colonization. 5. Hematuria. monitor clinically maintain SPT, last exchanged 12/04 hand irrigated and do PRN abx as ordered further management of urethral ca per med/onc tertiary care f/u on last blood cx Subjective Allergies: Coded Allergies: CODEINE (Verified Allergy, Unknown, 02/05/10) Subjective all noted Objective Last 24 Hour Vital Signs Date Time Temp Pulse Resp B/P (MAP) Pulse Ox O2 Delivery O2 Flow Rate FiO2 12/07/19 05:57 97.7 12/07/19 04:00 99.0 85 20 115/70 (85) 99 12/06/19 21:00 Room Air Room Air 12/06/19 20:41 97.7 12/06/19 20:00 98.2 90 20 109/64 (79) 100 12/06/19 16:00 97.7 74 20 105/60 (75) 94 12/06/19 12:14 99.0 12/06/19 12:00 97.7 78 18 120/61 (80) 95 12/06/19 09:00 Room Air Room Air Intake and Output 12/06/19 12/07/19 19:00 07:00 Intake Total 1317.416 ml 55 ml Output Total 1300 ml 2800 ml Balance 17.416 ml -2745 ml Intake Oral 840 ml IV Total 477.416 ml 55 ml Output Urine Total 1300 ml 2800 ml Microbiology Date/Time Source Procedure Growth Status 12/02/19 15:45 Penis Gram Stain - Final Complete 12/02/19 15:45 Wound Culture - Final Escherichia Coli - Esbl Enterobacter Cloacae Complex Staphylococcus Aureus - Mrsa Complete 12/02/19 09:20 Urine,Clean Catch Urine Culture - Final Enterobacter Cloacae Complex Complete 12/02/19 09:10 Blood Blood Culture - Preliminary NO GROWTH AFTER 72 HOURS Resulted Current Medications Medications (Trade) Dose Ordered Sig/Virginie Route PRN Reason Start Time Stop Time Status Last Admin Dose Admin Acetaminophen (Tylenol) 650 mg Q4H PRN ORAL Mild Pain (Pain Scale 1-3) 12/02/19 15:00 01/01/20 14:59 12/03/19 00:17 Acetaminophen/ Hydrocodone Bitart ([place] 10/325) 1 tab Q4H PRN ORAL Moderate Pain (Pain Scale 4-6) 12/03/19 08:45 12/10/19 08:44 Acetaminophen/ Hydrocodone Bitart ([place] 10/325) 2 tab Q4H PRN ORAL Severe Pain (Pain Scale 7-10) 12/03/19 08:45 12/10/19 08:44 12/07/19 05:27 Fenofibrate (Tricor) 145 mg DAILY ORAL 12/02/19 20:00 01/01/20 19:59 12/06/19 08:46 Heparin Sodium (Porcine) (Heparin 5000 units/ml) 5,000 units EVERY 12 HOURS SUBQ 12/02/19 21:00 01/16/20 20:59 12/06/19 20:31 Meropenem 1 gm/ Sodium Chloride 55 ml @ 110 mls/hr Q8H IVPB 12/05/19 13:00 12/10/19 12:59 12/07/19 05:20 Patient Own Medication (Patient's Own Med) 1 ea DAILY ORAL 12/02/19 19:00 01/01/20 18:59 12/06/19 08:56 Sodium Hypochlorite (Dakin's Quarter Strength) 1 applic DAILY TOPIC 12/04/19 09:00 01/03/20 08:59 12/06/19 08:57 Valacyclovir HCl (Valtrex) 500 mg DAILY ORAL 12/02/19 20:00 01/01/20 19:59 12/06/19 08:46 Vancomycin HCl (Vanco pharmacy to dose) 1 ea DAILY PRN MISC Per rx protocol 12/05/19 14:00 01/04/20 13:59 Vancomycin HCl 1 gm/Dextrose 275 ml @ 183.708 mls/hr Q12H IVPB 12/05/19 16:00 12/10/19 15:59 12/07/19 05:10 Height (Feet): 5 Height (Inches): 6.00 Weight (Pounds): 161 Objective exam stable Chas Larsen MD Dec 07, 2019 08:05
[2019-12-07] MEDS: Dakin's 0.125% Soln (Quarter Strength) 16oz TOPIC SCH (09:00)
[2019-12-07] MEDS: valACYclovir HCL 500mg tab ORAL SCH (09:48)
[2019-12-07] MEDS: SYMTUZA ORAL SCH (09:48)
[2019-12-07] MEDS: Heparin 5000 units/ml inj SUBQ SCH ×2 (09:49→20:10)
--- NOTE | 2019-12-07 11:36 | Infectious Diseases Prog Note ---
Assessment/Plan Assessment/Plan antibiotics : vancomycin iv 12.02.19 - meropenem 12.04.19 - valtrex A 1. enterobacter UTI 2. scrotal wound infection with e.coli, MRSA, enterobacter 3. urethral cancer s/p chemotherapy 4. HIV P 1. continue vancomycin 4 more days 2. continue meropenem 6 more days 3. will follow up cultures Subjective Constitutional: Denies: fever, chills Respiratory: Denies: shortness of breath, dry cough Gastrointestinal/Abdominal: Denies: nausea, vomiting, diarrhea Musculoskeletal: Reports: pain Allergies: Coded Allergies: CODEINE (Verified Allergy, Unknown, 02/05/10) Objective Last 24 Hour Vital Signs Date Time Temp Pulse Resp B/P (MAP) Pulse Ox O2 Delivery O2 Flow Rate FiO2 12/07/19 05:57 97.7 12/07/19 04:00 99.0 85 20 115/70 (85) 99 12/06/19 21:00 Room Air Room Air 12/06/19 20:41 97.7 12/06/19 20:00 98.2 90 20 109/64 (79) 100 12/06/19 16:00 97.7 74 20 105/60 (75) 94 12/06/19 12:14 99.0 12/06/19 12:00 97.7 78 18 120/61 (80) 95 Height (Feet): 5 Height (Inches): 6.00 Weight (Pounds): 161 Respiratory/Chest: lungs clear Cardiovascular: normal rate, regular rhythm, no gallop/murmur Abdomen: soft, non tender, other - SPC, scrotal wound Extremities: no edema Current Medications Medications (Trade) Dose Ordered Sig/Virginie Route PRN Reason Start Time Stop Time Status Last Admin Dose Admin Acetaminophen (Tylenol) 650 mg Q4H PRN ORAL Mild Pain (Pain Scale 1-3) 12/02/19 15:00 01/01/20 14:59 12/03/19 00:17 Acetaminophen/ Hydrocodone Bitart ([place] 10/325) 1 tab Q4H PRN ORAL Moderate Pain (Pain Scale 4-6) 12/03/19 08:45 12/10/19 08:44 Acetaminophen/ Hydrocodone Bitart ([place] 10/325) 2 tab Q4H PRN ORAL Severe Pain (Pain Scale 7-10) 12/03/19 08:45 12/10/19 08:44 12/07/19 09:54 Fenofibrate (Tricor) 145 mg DAILY ORAL 12/02/19 20:00 01/01/20 19:59 12/07/19 09:48 Heparin Sodium (Porcine) (Heparin 5000 units/ml) 5,000 units EVERY 12 HOURS SUBQ 12/02/19 21:00 01/16/20 20:59 12/07/19 09:49 Meropenem 1 gm/ Sodium Chloride 55 ml @ 110 mls/hr Q8H IVPB 12/05/19 13:00 12/10/19 12:59 12/07/19 05:20 Patient Own Medication (Patient's Own Med) 1 ea DAILY ORAL 12/02/19 19:00 01/01/20 18:59 12/07/19 09:48 Sodium Hypochlorite (Dakin's Quarter Strength) 1 applic DAILY TOPIC 12/04/19 09:00 01/03/20 08:59 12/07/19 09:00 Valacyclovir HCl (Valtrex) 500 mg DAILY ORAL 12/02/19 20:00 01/01/20 19:59 12/07/19 09:48 Vancomycin HCl (Vanco pharmacy to dose) 1 ea DAILY PRN MISC Per rx protocol 12/05/19 14:00 01/04/20 13:59 Vancomycin HCl 1 gm/Dextrose 275 ml @ 183.708 mls/hr Q12H IVPB 12/05/19 16:00 12/10/19 15:59 12/07/19 05:10 Karina Valverde MD Dec 07, 2019 11:36
[2019-12-07 12:00] VITALS: BP 100/64
--- NOTE | 2019-12-07 12:39 | NUR ---
RD ASSESSMENT & RECOMMENDATIONS SEE CARE ACTIVITY FOR COMPLETE ASSESSMENT DAILY ESTIMATED NEEDS: Needs based on Cancer, HIV/ 74kg 25-30 kcals/kg 9981-4121 total kcals 1-1.5 g protein/kg 74-111 g total protein 25-30 mL/kg 1817-6390 total fluid mLs NUTRITION DIAGNOSIS: Increased kcal/prot needs R/T catabolic dx as evidenced by h/o urethral cancer, s/p chemotherapy, radiation, +HIV. CURRENT DIET:Regular PO DIET RECOMMENDATIONS: REGULAR as tolerated + snacks BID ADDITIONAL RECOMMENDATIONS: * Standing wt for accurate CBW * Monitor for continued fair-good PO intake * Monitor for any side effects from chemo/radiation -> denies any side effects at this time.
--- NOTE | 2019-12-07 15:26 | NUR ---
*-*DISCHARGE PLANNING*-* PATIENT HAS BEEN REFERRED TO: [facility] P: [phone] S/W [facility], NOT ACCEPTING ANY NEW ADMISSION, DUE TO COVID.
[2019-12-07 16:00] VITALS: BP 129/74
[2019-12-07] MEDS ORDERED: NS 275ml ONE (16:52)
--- NOTE | 2019-12-07 17:10 | Surgery Progress Note ---
Surgery Progress Note Subjective Additional Comments d/c planning snf placement no n/v comfortable labs noted on abx Objective Last 24 Hour Vital Signs Date Time Temp Pulse Resp B/P (MAP) Pulse Ox O2 Delivery O2 Flow Rate FiO2 12/07/19 15:57 97.2 12/07/19 12:00 97.2 79 18 100/64 (76) 95 12/07/19 10:24 97.7 12/07/19 09:00 Room Air Room Air 12/07/19 08:00 97.2 78 18 99/58 (72) 95 12/07/19 05:57 97.7 12/07/19 04:00 99.0 85 20 115/70 (85) 99 12/06/19 21:00 Room Air Room Air 12/06/19 20:41 97.7 12/06/19 20:00 98.2 90 20 109/64 (79) 100 I&O Intake and Output 12/06/19 12/07/19 19:00 07:00 Intake Total 1317.416 ml 55 ml Output Total 1300 ml 2800 ml Balance 17.416 ml -2745 ml Intake Oral 840 ml IV Total 477.416 ml 55 ml Output Urine Total 1300 ml 2800 ml Dressing: saturated Cardiovascular: RSR Respiratory: decreased breath sounds Abdomen: non-tender, present bowel sounds Extremities: no edema, no tenderness, no cyanosis Plan Problems: (1) Catheter-associated urinary tract infection Assessment & Plan: will plan for catheter change local wound care for necrotic malignancy iv abx as per ID thank you appreciate urology input cath changed as urology will follow with recs The lung bases are clear. The liver and spleen are homogeneous. Gallbladder is without sludge or stone and there is no wall thickening. The pancreas is unremarkable. Adrenals are normal in morphology. The kidneys are normal in size, shape and axis. Small bowel loops are nondistended. Increased stool lucencies noted throughout the colon. The appendix is not visualized. There is no free fluid or free air. No pathologic adenopathy demonstrated. There is a suprapubic catheter identified in the bladder which otherwise appears unremarkable. It is difficult to define normal anatomy in the region of the patient's penis lobulated soft tissue density noted perhaps reflecting the patient's primary malignancy. There appears to be an anterior open wound. Mottled fluid and air lucency noted tracking to the base of the penis. The entire conglomeration measures 9.6 x 6.2 cm and it is difficult to separate from possible focal mass or infection. Some fluid is identified in the scrotum. IMPRESSION: SIGNIFICANT ALTERATION OF NORMAL ANATOMY IN THE REGION OF THE PATIENT'S PENIS WITH LOBULATED SOFT TISSUE DENSITY, FLUID DENSITY AND MOTTLED TRACKING AIR LUCENCIES EXTENDING TO THE BASE OF THE PENIS. THERE APPEARS TO BE AN ANTERIOR OPEN WOUND. FINDINGS LIKELY REFLECT COMBINATION OF THE PATIENT'S PRIMARY MALIGNANCY AND POSSIBLE SUPERIMPOSED INFECTION. SUPRAPUBIC CATHETER IN PLACE. (2) Abscess Assessment & Plan: cellulitis noted pubic around tumor invasion. wash with dakins solution, apply dakins gauze and dressings bid and prn (3) Sepsis Romain Li Dec 07, 2019 17:10
--- NOTE | 2019-12-07 17:41 | NUR ---
CASE MANAGEMENT:REVIEW SI;SEPSIS. PENILE ABSCESS(+) E COLI. 98.1 79 20 99/58 95% ON RA IS;VANCOMYCIN IV Q12 MEROPENEM IV Q8 NORCO PO Q4 PRN HEPARIN SUBQ Q12 VALTREX PO QD MED SURG DCP;FROM HOME PLAN; SNF VS HOME
--- NOTE | 2019-12-07 19:32 | NUR ---
NURSE HAND-OFF: Important Events on Shift: Patient Status: stable/ full code Diet: Regular Pending Orders: [] Pending Results/Labs: AM labs Pending MD notification:[] Latest Vital Signs: Temperature 98.1 , Pulse 74 , B/P 129 /74 , Respiratory Rate 20 , O2 SAT 95 , Room Air, O2 Flow Rate . Vital Sign Comment: stable Latest Rahman Fall Score: 30 Fall Risk: Medium Risk Safety Measures: Call light Within Reach, Bed Alarm Zone 2, Side Rails Side Rails x2, Bed position Low and Locked. Fall Precautions: Yellow Socks Yellow Gown Door Sign Patient Fall Education Report given to Lucio RN, pt in stable condition.
--- NOTE | 2019-12-07 19:42 | NUR ---
NURSE NOTES: Received report from MADAN Blair. Pt sleeping in bed, on room air. IV site intact and patent. Suprapubic catheter in place, patent, yellow, will flush prn per Dr Larsen. Bed locked, lowest position, alarm on, side rails up, call light within reach. Will continue to monitor.
[2019-12-07 20:00] VITALS: BP 98/54
[2019-12-08] VITALS: BP 97/56
[2019-12-08 04:00] VITALS: BP 114/69
[2019-12-08] MEDS: Meropenem 1 GM in NS 55 ML IVPB SCH ×3 (04:13→20:31)
[2019-12-08] MEDS: HYDROcodone/Acetamin 10/325 tab ORAL PRN ×3 (04:14→17:51)
[2019-12-08] MEDS: Vancomycin 750mg/D5W 275ml IVPB SCH ×6 (05:07→20:31)
--- NOTE | 2019-12-08 06:28 | NUR ---
NURSE NOTES: Pt wants stool softener. Left message Dr. Flores. Addendum: 12/08/19 at 0644 by CAROLYN BARRAZA RN RN Received order colace 100mg po bid
--- NOTE | 2019-12-08 07:36 | NUR ---
NURSE HAND-OFF: Important Events on Shift:pain management Patient Status: stable Diet: reg Pending Orders: N Pending Results/Labs:AM lab Pending MD notification:N Latest Vital Signs: Temperature 98.2 , Pulse 88 , B/P 114 /69 , Respiratory Rate 19 , O2 SAT 92 , Room Air, O2 Flow Rate . Vital Sign Comment: [] Latest Rahman Fall Score: 30 Fall Risk: Medium Risk Safety Measures: Call light Within Reach, Bed Alarm Zone 2, Side Rails Side Rails x2, Bed position Low and Locked. Fall Precautions: Yellow Socks Yellow Gown Door Sign Patient Fall Education Report given Johanny
[2019-12-08 08:00] VITALS: BP 107/55
--- NOTE | 2019-12-08 08:11 | NUR ---
NURSE NOTES: Patient awake and alert and oriented.Supra pubic catheter is in place with clear charli color urine noted.patient has wound but state he takes care of it and at this time would not allow to assess.DR Larsen Call light within reach.was here this morning to see patient.
--- NOTE | 2019-12-08 08:25 | Urology Progress Note ---
Assessment/Plan Assessment/Plan: 1. History of urethral cancer, status post chemotherapy, radiation. 2. Urinary retention with chronic suprapubic tube. 3. Probable neurogenic bladder. 4. Urinary tract infection and colonization. 5. Hematuria. monitor clinically maintain SPT, last exchanged 12/04 hand irrigated and do PRN abx as ordered further management of urethral ca per med/onc tertiary care f/u on last blood cx Subjective Allergies: Coded Allergies: CODEINE (Verified Allergy, Unknown, 02/05/10) Subjective all noted Objective Last 24 Hour Vital Signs Date Time Temp Pulse Resp B/P (MAP) Pulse Ox O2 Delivery O2 Flow Rate FiO2 12/08/19 04:00 98.2 88 19 114/69 (84) 92 12/08/19 00:00 98.2 78 18 97/56 (70) 91 12/07/19 21:00 Room Air 12/07/19 20:00 98.4 78 18 98/54 (69) 93 12/07/19 16:00 98.1 74 20 129/74 (92) 95 12/07/19 15:57 97.2 12/07/19 12:00 97.2 79 18 100/64 (76) 95 12/07/19 10:24 97.7 12/07/19 09:00 Room Air Room Air Intake and Output 12/07/19 12/08/19 19:00 07:00 Intake Total 1080 ml 360 ml Output Total 1800 ml 2600 ml Balance -720 ml -2240 ml Intake Oral 1080 ml Other 360 ml Output Urine Total 1800 ml 2600 ml Microbiology Date/Time Source Procedure Growth Status 12/02/19 15:45 Penis Gram Stain - Final Complete 12/02/19 15:45 Wound Culture - Final Escherichia Coli - Esbl Enterobacter [place]ae Complex Staphylococcus Aureus - Mrsa Complete 12/02/19 09:20 Urine,Clean Catch Urine Culture - Final Enterobacter Cl[place]ae Complex Complete 12/02/19 09:10 Blood Blood Culture - Preliminary NO GROWTH AFTER 72 HOURS Resulted Current Medications Medications (Trade) Dose Ordered Sig/Virginie Route PRN Reason Start Time Stop Time Status Last Admin Dose Admin Acetaminophen (Tylenol) 650 mg Q4H PRN ORAL Mild Pain (Pain Scale 1-3) 12/02/19 15:00 01/01/20 14:59 12/03/19 00:17 Acetaminophen/ Hydrocodone Bitart ([place] 10/325) 1 tab Q4H PRN ORAL Moderate Pain (Pain Scale 4-6) 12/03/19 08:45 12/10/19 08:44 Acetaminophen/ Hydrocodone Bitart ([place] 10/325) 2 tab Q4H PRN ORAL Severe Pain (Pain Scale 7-10) 12/03/19 08:45 12/10/19 08:44 12/08/19 04:14 Docusate Sodium (Colace) 100 mg TWICE A DAY ORAL 12/08/19 09:00 01/07/20 08:59 Fenofibrate (Tricor) 145 mg DAILY ORAL 12/02/19 20:00 01/01/20 19:59 12/07/19 09:48 Heparin Sodium (Porcine) (Heparin 5000 units/ml) 5,000 units EVERY 12 HOURS SUBQ 12/02/19 21:00 01/16/20 20:59 12/07/19 20:10 Meropenem 1 gm/ Sodium Chloride 55 ml @ 110 mls/hr Q8H IVPB 12/05/19 13:00 12/10/19 12:59 12/08/19 04:13 Patient Own Medication (Patient's Own Med) 1 ea DAILY ORAL 12/02/19 19:00 01/01/20 18:59 12/07/19 09:48 Sodium Hypochlorite (Dakin's Quarter Strength) 1 applic DAILY TOPIC 12/04/19 09:00 01/03/20 08:59 12/07/19 09:00 Valacyclovir HCl (Valtrex) 500 mg DAILY ORAL 12/02/19 20:00 01/01/20 19:59 12/07/19 09:48 Vancomycin HCl (Vanco pharmacy to dose) 1 ea DAILY PRN MISC Per rx protocol 12/05/19 14:00 01/04/20 13:59 Vancomycin HCl 750 mg/Dextrose 275 ml @ 183.333 mls/hr Q8H IVPB 12/08/19 05:00 12/13/19 04:59 12/08/19 05:07 Laboratory Tests 12/08/19 03:00: Vancomycin Level Trough 13.8H Height (Feet): 5 Height (Inches): 6.00 Weight (Pounds): 161 Objective exam stable Chas Larsen MD Dec 08, 2019 08:25
[2019-12-08] MEDS: valACYclovir HCL 500mg tab ORAL SCH (08:40)
[2019-12-08] MEDS: Docusate 100mg cap ORAL SCH ×2 (08:40→17:40)
[2019-12-08] MEDS: Heparin 5000 units/ml inj SUBQ SCH ×2 (08:40→20:31)
[2019-12-08] MEDS: SYMTUZA ORAL SCH (08:42)
--- NOTE | 2019-12-08 09:34 | General Progress Note ---
Subjective Allergies: Coded Allergies: CODEINE (Verified Allergy, Unknown, 02/05/10) Subjective stable pain all consultants appreciated Objective Last 24 Hour Vital Signs Date Time Temp Pulse Resp B/P (MAP) Pulse Ox O2 Delivery O2 Flow Rate FiO2 12/08/19 08:00 97.9 83 20 107/55 (72) 94 12/08/19 04:00 98.2 88 19 114/69 (84) 92 12/08/19 00:00 98.2 78 18 97/56 (70) 91 12/07/19 21:00 Room Air 12/07/19 20:00 98.4 78 18 98/54 (69) 93 12/07/19 16:00 98.1 74 20 129/74 (92) 95 12/07/19 15:57 97.2 12/07/19 12:00 97.2 79 18 100/64 (76) 95 12/07/19 10:24 97.7 Intake and Output 12/07/19 12/08/19 19:00 07:00 Intake Total 1080 ml 360 ml Output Total 1800 ml 2600 ml Balance -720 ml -2240 ml Intake Oral 1080 ml Other 360 ml Output Urine Total 1800 ml 2600 ml Laboratory Tests 12/08/19 03:00: Vancomycin Level Trough 13.8H Height (Feet): 5 Height (Inches): 6.00 Weight (Pounds): 161 Objective alert penile dc Assessment/Plan Assessment/Plan: Penile abscess, possible sepsis, catheter-associated urinary tract infection, status post chemotherapy, radiation therapy for urethral cancer, HIV. anemia PLAN care noted monitor labs iv antibiotics and taper per ID surgical follow up pain control dc once infection cleared dc planning to home per CM impression, plan, and exam edited and reviewed in detail care discussed with Amado Beaulieu MD Dec 08, 2019 09:34
--- NOTE | 2019-12-08 11:35 | Infectious Diseases Prog Note ---
Assessment/Plan Assessment/Plan antibiotics : vancomycin iv 12.02.19 - meropenem 12.04.19 - valtrex A 1. enterobacter UTI 2. scrotal wound infection with e.coli, MRSA, enterobacter 3. urethral cancer s/p chemotherapy 4. HIV P 1. continue vancomycin 3 more days 2. continue meropenem 5 more days 3. will follow up cultures Subjective Constitutional: Denies: fever, chills Respiratory: Denies: shortness of breath, dry cough Gastrointestinal/Abdominal: Denies: nausea, vomiting, diarrhea Musculoskeletal: Reports: pain - decreased Allergies: Coded Allergies: CODEINE (Verified Allergy, Unknown, 02/05/10) Objective Last 24 Hour Vital Signs Date Time Temp Pulse Resp B/P (MAP) Pulse Ox O2 Delivery O2 Flow Rate FiO2 12/08/19 10:10 Room Air 12/08/19 08:00 97.9 83 20 107/55 (72) 94 12/08/19 04:00 98.2 88 19 114/69 (84) 92 12/08/19 00:00 98.2 78 18 97/56 (70) 91 12/07/19 21:00 Room Air 12/07/19 20:00 98.4 78 18 98/54 (69) 93 12/07/19 16:00 98.1 74 20 129/74 (92) 95 12/07/19 15:57 97.2 12/07/19 12:00 97.2 79 18 100/64 (76) 95 Height (Feet): 5 Height (Inches): 6.00 Weight (Pounds): 161 Respiratory/Chest: lungs clear Cardiovascular: normal rate, regular rhythm, no gallop/murmur Abdomen: soft, non tender, other - SPC, scrotal wound Extremities: no edema Laboratory Tests Test 12/08/19 03:00 Vancomycin Level Trough 13.8 ug/mL (5.0-12.0) H Current Medications Medications (Trade) Dose Ordered Sig/Virginie Route PRN Reason Start Time Stop Time Status Last Admin Dose Admin Acetaminophen (Tylenol) 650 mg Q4H PRN ORAL Mild Pain (Pain Scale 1-3) 12/02/19 15:00 01/01/20 14:59 12/03/19 00:17 Acetaminophen/ Hydrocodone Bitart ([place] 10) 1 tab Q4H PRN ORAL Moderate Pain (Pain Scale 4-6) 12/03/19 08:45 12/10/19 08:44 Acetaminophen/ Hydrocodone Bitart ([place] 10/325) 2 tab Q4H PRN ORAL Severe Pain (Pain Scale 7-10) 12/03/19 08:45 12/10/19 08:44 12/08/19 08:46 Docusate Sodium (Colace) 100 mg TWICE A DAY ORAL 12/08/19 09:00 01/07/20 08:59 12/08/19 08:40 Fenofibrate (Tricor) 145 mg DAILY ORAL 12/02/19 20:00 01/01/20 19:59 12/08/19 08:40 Heparin Sodium (Porcine) (Heparin 5000 units/ml) 5,000 units EVERY 12 HOURS SUBQ 12/02/19 21:00 01/16/20 20:59 12/08/19 08:40 Meropenem 1 gm/ Sodium Chloride 55 ml @ 110 mls/hr Q8H IVPB 12/05/19 13:00 12/10/19 12:59 12/08/19 04:13 Patient Own Medication (Patient's Own Med) 1 ea DAILY ORAL 12/02/19 19:00 01/01/20 18:59 12/08/19 08:42 Sodium Hypochlorite (Dakin's Quarter Strength) 1 applic DAILY TOPIC 12/04/19 09:00 01/03/20 08:59 12/07/19 09:00 Valacyclovir HCl (Valtrex) 500 mg DAILY ORAL 12/02/19 20:00 01/01/20 19:59 12/08/19 08:40 Vancomycin HCl (Vanco pharmacy to dose) 1 ea DAILY PRN MISC Per rx protocol 12/05/19 14:00 01/04/20 13:59 Vancomycin HCl 750 mg/Dextrose 275 ml @ 183.333 mls/hr Q8H IVPB 12/08/19 05:00 12/13/19 04:59 12/08/19 05:07 Karina Valverde MD Dec 08, 2019 11:35
--- NOTE | 2019-12-08 11:46 | Surgery Progress Note ---
Surgery Progress Note Subjective Additional Comments no acute events comfortable stable doing well states he feels okay pending d/c Objective Last 24 Hour Vital Signs Date Time Temp Pulse Resp B/P (MAP) Pulse Ox O2 Delivery O2 Flow Rate FiO2 12/08/19 10:10 Room Air 12/08/19 08:00 97.9 83 20 107/55 (72) 94 12/08/19 04:00 98.2 88 19 114/69 (84) 92 12/08/19 00:00 98.2 78 18 97/56 (70) 91 12/07/19 21:00 Room Air 12/07/19 20:00 98.4 78 18 98/54 (69) 93 12/07/19 16:00 98.1 74 20 129/74 (92) 95 12/07/19 15:57 97.2 12/07/19 12:00 97.2 79 18 100/64 (76) 95 I&O Intake and Output 12/07/19 12/08/19 19:00 07:00 Intake Total 1080 ml 360 ml Output Total 1800 ml 2600 ml Balance -720 ml -2240 ml Intake Oral 1080 ml Other 360 ml Output Urine Total 1800 ml 2600 ml Dressing: saturated Cardiovascular: RSR Respiratory: decreased breath sounds Abdomen: soft, non-tender, present bowel sounds Extremities: no tenderness, no cyanosis Laboratory Tests Test 12/08/19 03:00 Vancomycin Level Trough 13.8 ug/mL (5.0-12.0) H Plan Problems: (1) Catheter-associated urinary tract infection Assessment & Plan: will plan for catheter change local wound care for necrotic malignancy iv abx as per ID thank you appreciate urology input cath changed as urology will follow with recs The lung bases are clear. The liver and spleen are homogeneous. Gallbladder is without sludge or stone and there is no wall thickening. The pancreas is unremarkable. Adrenals are normal in morphology. The kidneys are normal in size, shape and axis. Small bowel loops are nondistended. Increased stool lucencies noted throughout the colon. The appendix is not visualized. There is no free fluid or free air. No pathologic adenopathy demonstrated. There is a suprapubic catheter identified in the bladder which otherwise appears unremarkable. It is difficult to define normal anatomy in the region of the patient's penis lobulated soft tissue density noted perhaps reflecting the patient's primary malignancy. There appears to be an anterior open wound. Mottled fluid and air lucency noted tracking to the base of the penis. The entire conglomeration measures 9.6 x 6.2 cm and it is difficult to separate from possible focal mass or infection. Some fluid is identified in the scrotum. IMPRESSION: SIGNIFICANT ALTERATION OF NORMAL ANATOMY IN THE REGION OF THE PATIENT'S PENIS WITH LOBULATED SOFT TISSUE DENSITY, FLUID DENSITY AND MOTTLED TRACKING AIR LUCENCIES EXTENDING TO THE BASE OF THE PENIS. THERE APPEARS TO BE AN ANTERIOR OPEN WOUND. FINDINGS LIKELY REFLECT COMBINATION OF THE PATIENT'S PRIMARY MALIGNANCY AND POSSIBLE SUPERIMPOSED INFECTION. SUPRAPUBIC CATHETER IN PLACE. (2) Abscess Assessment & Plan: cellulitis noted pubic around tumor invasion. wash with dakins solution, apply dakins gauze and dressings bid and prn (3) Sepsis Romain Li Dec 08, 2019 11:46
[2019-12-08 12:00] VITALS: BP 107/63
[2019-12-08] MEDS: Dakin's 0.125% Soln (Quarter Strength) 16oz TOPIC SCH ×2 (14:00→17:45)
[2019-12-08 16:00] VITALS: BP 109/69
--- NOTE | 2019-12-08 16:24 | NUR ---
*-*DISCHARGE PLANNED*-* PATIENT HAS BEEN REFERRED TO: [facility] P: [phone]
--- NOTE | 2019-12-08 16:31 | NUR ---
CASE MANAGEMENT:REVIEW SI; SEPSIS. PENILE ABSCESS(+) E COLI 98.2 88 20 97/56 91% ON RA IS;VANCOMYCIN IV Q8 MEROPENEM IV Q8 VALTREX PO QD HEPARIN SUBQ Q12 NORCO PO Q4 MED SURG STATUS DCP;FROM HOME
--- NOTE | 2019-12-08 17:02 | NUR ---
*-*DISCHARGE PLANNED*-* PATIENT HAS BEEN REFERRED TO: [facility] P: [phone] S/W JULES, WILL WORK ON INSURANCE, AND HAVE A BED BY 9:30 AM TOMORROW 12/09/2019.
--- NOTE | 2019-12-08 18:00 | NUR ---
NURSE NOTES: Pain medication given per patient request.Patient did his own wound care.assist offered,patient state he has been doing the wound care.Call light within reach.
--- NOTE | 2019-12-08 19:35 | NUR ---
NURSE NOTES: Received report from MADAN [place]. Pt resting in bed, on room air. IV site intact and patent. Suprapubic catheter in place, patent, yellow urine, will flush prn per Dr Larsen. Denies pain. Bed locked, lowest position, alarm on, side rails up, call light within reach. Will continue to monitor.
--- NOTE | 2019-12-08 19:35 | NUR ---
NURSE HAND-OFF: Daya HAGER Important Events on Shift:[[place] 2 tablets given at 1751 Patient Status: [] Diet: [regular Pending Orders: [] Pending Results/Labs:[] Pending MD notification:[] Latest Vital Signs: Temperature 99.1 , Pulse 76 , B/P 109 /62 , Respiratory Rate 20 , O2 SAT 94 , Room Air, O2 Flow Rate . Vital Sign Comment: [] Latest Rahman Fall Score: 30 Fall Risk: Medium Risk Safety Measures: Call light Within Reach, Bed Alarm Zone 2, Side Rails Side Rails x2, Bed position Low and Locked. Fall Precautions: Y Yellow Socks Yellow Gown Door Sign Patient Fall Education call fo assist Report given to [].
[2019-12-08 20:00] VITALS: BP 109/62
--- NOTE | 2019-12-08 21:10 | NUR ---
NURSE NOTES: Pt refused abx and heparin. Says "I need to sleep now. I want to get comfort." Explained benefits and risks but still refused x 3
[2019-12-09] VITALS: BP 126/63
[2019-12-09 04:00] VITALS: BP 109/71
[2019-12-09] MEDS: Vancomycin 750mg/D5W 275ml IVPB SCH ×4 (04:16→13:55)
[2019-12-09] MEDS: Meropenem 1 GM in NS 55 ML IVPB SCH (04:16)
[2019-12-09] MEDS: HYDROcodone/Acetamin 10/325 tab ORAL PRN (04:17)
[2019-12-09 04:33] LABS: ANION GAP 6 mmol/L (5-15); BLOOD UREA NITROGEN 18 mg/dL (7-18); CALCIUM 10.6 MG/DL (8.5-10.1); CARBON DIOXIDE 28 MMOL/L (21-32); CHLORIDE 102 MMOL/L (98-107); CREATININE 1.2 MG/DL (0.55-1.30); POTASSIUM 3.9 MMOL/L (3.5-5.1); SODIUM 136 MMOL/L (136-145)
--- NOTE | 2019-12-09 06:41 | NUR ---
NURSE HAND-OFF: Important Events on Shift:None Patient Status: stable Diet: reg Pending Orders: N Pending Results/Labs:AM labs Pending MD notification: Latest Vital Signs: Temperature 98.8 , Pulse 82 , B/P 109 /71 , Respiratory Rate 18 , O2 SAT 94 , Room Air, O2 Flow Rate . Vital Sign Comment: [] Latest Rahman Fall Score: 30 Fall Risk: Medium Risk Safety Measures: Call light Within Reach, Bed Alarm Zone 2, Side Rails Side Rails x2, Bed position Low and Locked. Fall Precautions: Yellow Socks Yellow Gown Door Sign Patient Fall Education Addendum: 12/09/19 at 0713 by CAROLYN BARRAZA RN RN HAND-OFF: Report given to
--- NOTE | 2019-12-09 07:54 | NUR ---
NURSE NOTES: Patient alert and oriented,respirations unlabored.Supra pubic catheter in place with clear charli color urine noted.Patient sitting up in bed and eating breakfast.Call light within reach.
[2019-12-09 08:00] VITALS: BP 109/71
[2019-12-09] MEDS: SYMTUZA ORAL SCH (08:40)
[2019-12-09] MEDS: Docusate 100mg cap ORAL SCH (08:40)
[2019-12-09] MEDS: valACYclovir HCL 500mg tab ORAL SCH (08:40)
[2019-12-09] MEDS: Heparin 5000 units/ml inj SUBQ SCH (08:41)
--- NOTE | 2019-12-09 09:06 | Urology Progress Note ---
Assessment/Plan Assessment/Plan: 1. History of urethral cancer, status post chemotherapy, radiation. 2. Urinary retention with chronic suprapubic tube. 3. Probable neurogenic bladder. 4. Urinary tract infection and colonization. 5. Hematuria. monitor clinically maintain SPT, last exchanged 12/04 hand irrigated and do PRN abx as ordered further management of urethral ca per med/onc tertiary care f/u on last blood cx Subjective Allergies: Coded Allergies: CODEINE (Verified Allergy, Unknown, 02/05/10) Subjective all noted Objective Last 24 Hour Vital Signs Date Time Temp Pulse Resp B/P (MAP) Pulse Ox O2 Delivery O2 Flow Rate FiO2 12/09/19 08:00 97.5 74 19 109/71 (84) 93 12/09/19 04:00 98.8 82 18 109/71 (84) 94 12/09/19 00:00 98.8 74 20 126/63 (84) 94 12/08/19 21:00 Room Air 12/08/19 20:00 99.1 76 20 109/62 (78) 94 12/08/19 16:00 98.1 81 20 109/69 (82) 95 12/08/19 12:00 98.1 72 18 107/63 (78) 94 12/08/19 10:10 Room Air Intake and Output 12/08/19 12/09/19 19:00 07:00 Intake Total 720 ml 240 ml Output Total 1400 ml 1600 ml Balance -680 ml -1360 ml Intake Oral 720 ml 240 ml Output Urine Total 1400 ml 1600 ml # Voids 1 Microbiology Date/Time Source Procedure Growth Status 12/02/19 15:45 Penis Gram Stain - Final Complete 12/02/19 15:45 Wound Culture - Final Escherichia Coli - Esbl Enterobacter Cl[place]ae Complex Staphylococcus Aureus - Mrsa Complete 12/02/19 09:20 Urine,Clean Catch Urine Culture - Final Enterobacter Cl[place]ae Complex Complete 12/02/19 09:10 Blood Blood Culture - Preliminary NO GROWTH AFTER 72 HOURS Resulted Current Medications Medications (Trade) Dose Ordered Sig/Virginie Route PRN Reason Start Time Stop Time Status Last Admin Dose Admin Acetaminophen (Tylenol) 650 mg Q4H PRN ORAL Mild Pain (Pain Scale 1-3) 12/02/19 15:00 01/01/20 14:59 12/03/19 00:17 Acetaminophen/ Hydrocodone Bitart ([place] 10/325) 1 tab Q4H PRN ORAL Moderate Pain (Pain Scale 4-6) 12/03/19 08:45 12/10/19 08:44 Acetaminophen/ Hydrocodone Bitart ([place] 10/325) 2 tab Q4H PRN ORAL Severe Pain (Pain Scale 7-10) 12/03/19 08:45 12/10/19 08:44 12/09/19 04:17 Docusate Sodium (Colace) 100 mg TWICE A DAY ORAL 12/08/19 09:00 01/07/20 08:59 12/09/19 08:40 Fenofibrate (Tricor) 145 mg DAILY ORAL 12/02/19 20:00 01/01/20 19:59 12/09/19 08:40 Heparin Sodium (Porcine) (Heparin 5000 units/ml) 5,000 units EVERY 12 HOURS SUBQ 12/02/19 21:00 01/16/20 20:59 12/09/19 08:41 Meropenem 1 gm/ Sodium Chloride 55 ml @ 110 mls/hr Q8H IVPB 12/05/19 13:00 12/10/19 12:59 12/09/19 04:16 Patient Own Medication (Patient's Own Med) 1 ea DAILY ORAL 12/02/19 19:00 01/01/20 18:59 12/09/19 08:40 Sodium Hypochlorite (Dakin's Quarter Strength) 1 applic DAILY TOPIC 12/04/19 09:00 01/03/20 08:59 12/08/19 14:00 Valacyclovir HCl (Valtrex) 500 mg DAILY ORAL 12/02/19 20:00 01/01/20 19:59 12/09/19 08:40 Vancomycin HCl (Vanco pharmacy to dose) 1 ea DAILY PRN MISC Per rx protocol 12/05/19 14:00 01/04/20 13:59 Vancomycin HCl 750 mg/Dextrose 275 ml @ 183.333 mls/hr Q8H IVPB 12/08/19 05:00 12/13/19 04:59 12/09/19 04:16 Laboratory Tests 12/09/19 03:54: Sodium Level 136, Potassium Level 3.9, Chloride Level 102, Carbon Dioxide Level 28, Anion Gap 6, Blood Urea Nitrogen 18, Creatinine 1.2, Estimat Glomerular F iltration Rate > 60, Glucose Level 108H, Calcium Level 10.6H, Vancomycin Level Trough 10.0 Height (Feet): 5 Height (Inches): 6.00 Weight (Pounds): 161 Objective exam stable Chas Larsen MD Dec 09, 2019 09:06
[2019-12-09] MEDS ORDERED: HYDROcodone/Acetamin 10/325 tab ORAL PRN ×2 (10:30)
--- NOTE | 2019-12-09 11:23 | Infectious Diseases Prog Note ---
Assessment/Plan Assessment/Plan antibiotics : vancomycin iv 12.02.19 - meropenem 12.04.19 - valtrex A 1. enterobacter UTI 2. scrotal wound infection with e.coli, MRSA, enterobacter 3. urethral cancer s/p chemotherapy 4. HIV P 1. continue vancomycin 2 more days 2. continue meropenem 4 more days 3. will follow up cultures Subjective Constitutional: Denies: fever, chills Respiratory: Denies: shortness of breath, dry cough Gastrointestinal/Abdominal: Denies: nausea, vomiting, diarrhea Musculoskeletal: Reports: pain Allergies: Coded Allergies: CODEINE (Verified Allergy, Unknown, 02/05/10) Objective Last 24 Hour Vital Signs Date Time Temp Pulse Resp B/P (MAP) Pulse Ox O2 Delivery O2 Flow Rate FiO2 12/09/19 10:00 Room Air 12/09/19 08:00 97.5 74 19 109/71 (84) 93 12/09/19 04:00 98.8 82 18 109/71 (84) 94 12/09/19 00:00 98.8 74 20 126/63 (84) 94 12/08/19 21:00 Room Air 12/08/19 20:00 99.1 76 20 109/62 (78) 94 12/08/19 16:00 98.1 81 20 109/69 (82) 95 12/08/19 12:00 98.1 72 18 107/63 (78) 94 Height (Feet): 5 Height (Inches): 6.00 Weight (Pounds): 161 Respiratory/Chest: lungs clear Cardiovascular: normal rate, regular rhythm, no gallop/murmur Abdomen: soft, non tender, other - SPC, scrotal wound Extremities: no edema Laboratory Tests Test 12/09/19 03:54 Sodium Level 136 MMOL/L (136-145) Potassium Level 3.9 MMOL/L (3.5-5.1) Chloride Level 102 MMOL/L (98-107) Carbon Dioxide Level 28 MMOL/L (21-32) Anion Gap 6 mmol/L (5-15) Blood Urea Nitrogen 18 mg/dL (7-18) Creatinine 1.2 MG/DL (0.55-1.30) Estimat Glomerular Filtration Rate > 60 mL/min (>60) Glucose Level 108 MG/DL (74-106) H Calcium Level 10.6 MG/DL (8.5-10.1) H Vancomycin Level Trough 10.0 ug/mL (5.0-12.0) Current Medications Medications (Trade) Dose Ordered Sig/Virginie Route PRN Reason Start Time Stop Time Status Last Admin Dose Admin Acetaminophen (Tylenol) 650 mg Q4H PRN ORAL Mild Pain (Pain Scale 1-3) 12/02/19 15:00 01/01/20 14:59 12/03/19 00:17 Acetaminophen/ Hydrocodone Bitart ([place] 10/325) 1 tab Q4H PRN ORAL Moderate Pain (Pain Scale 4-6) 12/09/19 10:30 12/16/19 10:29 Acetaminophen/ Hydrocodone Bitart ([place] 10/325) 2 tab Q4H PRN ORAL Severe Pain (Pain Scale 7-10) 12/09/19 10:30 12/16/19 10:29 Docusate Sodium (Colace) 100 mg TWICE A DAY ORAL 12/08/19 09:00 01/07/20 08:59 12/09/19 08:40 Fenofibrate (Tricor) 145 mg DAILY ORAL 12/02/19 20:00 01/01/20 19:59 12/09/19 08:40 Heparin Sodium (Porcine) (Heparin 5000 units/ml) 5,000 units EVERY 12 HOURS SUBQ 12/02/19 21:00 01/16/20 20:59 12/09/19 08:41 Meropenem 1 gm/ Sodium Chloride 55 ml @ 110 mls/hr Q8H IVPB 12/09/19 13:00 12/12/19 23:59 Patient Own Medication (Patient's Own Med) 1 ea DAILY ORAL 12/02/19 19:00 01/01/20 18:59 12/09/19 08:40 Sodium Hypochlorite (Dakin's Quarter Strength) 1 applic DAILY TOPIC 12/04/19 09:00 01/03/20 08:59 12/08/19 14:00 Valacyclovir HCl (Valtrex) 500 mg DAILY ORAL 12/02/19 20:00 01/01/20 19:59 12/09/19 08:40 Vancomycin HCl (Vanco pharmacy to dose) 1 ea DAILY PRN MISC Per rx protocol 12/05/19 14:00 01/04/20 13:59 Vancomycin HCl 750 mg/Dextrose 275 ml @ 183.333 mls/hr Q8H IVPB 12/08/19 05:00 12/13/19 04:59 12/09/19 04:16 Karina Valverde MD Dec 09, 2019 11:23
--- NOTE | 2019-12-09 11:55 | NUR ---
*-*DISCHARGE PLANNED*-* PATIENT HAS BEEN ACCEPTED AND WILL BE DISCHARGED TO: [facility] P: [phone] FOR NURSE TO NURSE REPORT ROOM# 21.A [facility] SET FOR 12:45PM S/W PHIL [phone].
[2019-12-09 12:00] VITALS: BP 121/70
--- NOTE | 2019-12-09 12:40 | NUR ---
*-*DISCHARGE PLANNED*-* PATIENT HAS BEEN ACCEPTED AND WILL BE DISCHARGED TO: [facility] P: [phone] FOR NURSE TO NURSE REPORT ROOM# 21.c [facility] SET FOR WILL CALL S/W PHIL [phone].
--- NOTE | 2019-12-09 12:49 | NUR ---
NURSE NOTES: RN was informed from that patient was accepted to [facility]. RN informed Dr. Flores and received discharge order,continue with hospital meds, antibiotic per ID. RN spoke to Dr. Valverde who stated no antibiotics upon discharge. Rn endorsed to the primary nurse. Will set up the ambulance.
[2019-12-09] MEDS ORDERED: Meropenem 1 GM in NS 55 ML IVPB SCH (13:00)
[2019-12-09] MEDS ORDERED: DOCUSATE SODIU100 MG ORAL (13:05)
[2019-12-09] MEDS ORDERED: ACETAMINOPHEN325 M1 ORAL (13:05)
[2019-12-09] MEDS ORDERED: HEPARIN SO5000 UNIT2 SUBQ (13:06)
[2019-12-09] MEDS ORDERED: HYDROCODON-ACE1 EA13 ORAL (13:06)
[2019-12-09] MEDS ORDERED: NORCO 10-325 T1 EACH ORAL (13:07)
[2019-12-09] MEDS ORDERED: DAKIN'S473 ML MC (13:09)
[2019-12-09] MEDS ORDERED: SYMTUZA 800-151 EACH PO ×2 (13:11→13:12)
[2019-12-09] MEDS: Dakin's 0.125% Soln (Quarter Strength) 16oz TOPIC SCH (13:58)
[2019-12-09] MEDS ORDERED: Miralax 17gm pkt ORAL SCH (14:00)
--- NOTE | 2019-12-09 14:05 | NUR ---
NURSE NOTES: Patient has not had a bowel movement since 12/02,DR Flores made aware ,patient state he has taken Miralax in the past. Order for Miralax po x1 given.
--- NOTE | 2019-12-09 15:00 | NUR ---
*-*DISCHARGE PLANNED*-* PATIENT HAS BEEN ACCEPTED AND WILL BE DISCHARGED TO: [facility] P: [phone] FOR NURSE TO NURSE REPORT ROOM# 21.c [facility] SET FOR 2:30PM
--- NOTE | 2019-12-09 15:48 | Surgery Progress Note ---
Surgery Progress Note Subjective Symptoms: tolerating diet, voiding well, passing flatus Objective Last 24 Hour Vital Signs Date Time Temp Pulse Resp B/P (MAP) Pulse Ox O2 Delivery O2 Flow Rate FiO2 12/09/19 12:00 98.2 75 19 121/70 (87) 93 12/09/19 10:00 Room Air 12/09/19 08:00 97.5 74 19 109/71 (84) 93 12/09/19 04:00 98.8 82 18 109/71 (84) 94 12/09/19 00:00 98.8 74 20 126/63 (84) 94 12/08/19 21:00 Room Air 12/08/19 20:00 99.1 76 20 109/62 (78) 94 12/08/19 16:00 98.1 81 20 109/69 (82) 95 I&O Intake and Output 12/08/19 12/09/19 19:00 07:00 Intake Total 720 ml 240 ml Output Total 1400 ml 1600 ml Balance -680 ml -1360 ml Intake Oral 720 ml 240 ml Output Urine Total 1400 ml 1600 ml # Voids 1 Dressing: saturated Cardiovascular: RSR Respiratory: decreased breath sounds Abdomen: non-tender, present bowel sounds Extremities: no tenderness, no cyanosis Laboratory Tests Test 12/09/19 03:54 Sodium Level 136 MMOL/L (136-145) Potassium Level 3.9 MMOL/L (3.5-5.1) Chloride Level 102 MMOL/L (98-107) Carbon Dioxide Level 28 MMOL/L (21-32) Anion Gap 6 mmol/L (5-15) Blood Urea Nitrogen 18 mg/dL (7-18) Creatinine 1.2 MG/DL (0.55-1.30) Estimat Glomerular Filtration Rate > 60 mL/min (>60) Glucose Level 108 MG/DL (74-106) H Calcium Level 10.6 MG/DL (8.5-10.1) H Vancomycin Level Trough 10.0 ug/mL (5.0-12.0) Plan Problems: (1) Catheter-associated urinary tract infection Assessment & Plan: will plan for catheter change local wound care for necrotic malignancy iv abx as per ID thank you appreciate urology input cath changed as urology will follow with recs The lung bases are clear. The liver and spleen are homogeneous. Gallbladder is without sludge or stone and there is no wall thickening. The pancreas is unremarkable. Adrenals are normal in morphology. The kidneys are normal in size, shape and axis. Small bowel loops are nondistended. Increased stool lucencies noted throughout the colon. The appendix is not visualized. There is no free fluid or free air. No pathologic adenopathy demonstrated. There is a suprapubic catheter identified in the bladder which otherwise appears unremarkable. It is difficult to define normal anatomy in the region of the patient's penis lobulated soft tissue density noted perhaps reflecting the patient's primary malignancy. There appears to be an anterior open wound. Mottled fluid and air lucency noted tracking to the base of the penis. The entire conglomeration measures 9.6 x 6.2 cm and it is difficult to separate from possible focal mass or infection. Some fluid is identified in the scrotum. IMPRESSION: SIGNIFICANT ALTERATION OF NORMAL ANATOMY IN THE REGION OF THE PATIENT'S PENIS WITH LOBULATED SOFT TISSUE DENSITY, FLUID DENSITY AND MOTTLED TRACKING AIR LUCENCIES EXTENDING TO THE BASE OF THE PENIS. THERE APPEARS TO BE AN ANTERIOR OPEN WOUND. FINDINGS LIKELY REFLECT COMBINATION OF THE PATIENT'S PRIMARY MALIGNANCY AND POSSIBLE SUPERIMPOSED INFECTION. SUPRAPUBIC CATHETER IN PLACE. (2) Abscess Assessment & Plan: cellulitis noted pubic around tumor invasion. wash with dakins solution, apply dakins gauze and dressings bid and prn (3) Sepsis Romain Li Dec 09, 2019 15:48
--- NOTE | 2019-12-09 16:13 | NUR ---
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
--- NOTE | 2019-12-09 16:58 | General Progress Note ---
Subjective Allergies: Coded Allergies: CODEINE (Verified Allergy, Unknown, 02/05/10) Subjective stable pain all consultants appreciated Objective Last 24 Hour Vital Signs Date Time Temp Pulse Resp B/P (MAP) Pulse Ox O2 Delivery O2 Flow Rate FiO2 12/09/19 12:00 98.2 75 19 121/70 (87) 93 12/09/19 10:00 Room Air 12/09/19 08:00 97.5 74 19 109/71 (84) 93 12/09/19 04:00 98.8 82 18 109/71 (84) 94 12/09/19 00:00 98.8 74 20 126/63 (84) 94 12/08/19 21:00 Room Air 12/08/19 20:00 99.1 76 20 109/62 (78) 94 Intake and Output 12/08/19 12/09/19 19:00 07:00 Intake Total 720 ml 240 ml Output Total 1400 ml 1600 ml Balance -680 ml -1360 ml Intake Oral 720 ml 240 ml Output Urine Total 1400 ml 1600 ml # Voids 1 Laboratory Tests 12/09/19 03:54: Sodium Level 136, Potassium Level 3.9, Chloride Level 102, Carbon Dioxide Level 28, Anion Gap 6, Blood Urea Nitrogen 18, Creatinine 1.2, Estimat Glomerular Filtration Rate > 60, Glucose Level 108H, Calcium Level 10.6H, Vancomycin Level Trough 10.0 Height (Feet): 5 Height (Inches): 6.00 Weight (Pounds): 161 Objective alert penile dc Assessment/Plan Assessment/Plan: Penile abscess, possible sepsis, catheter-associated urinary tract infection, status post chemotherapy, radiation therapy for urethral cancer, HIV. anemia PLAN seen earlier care noted monitor labs iv antibiotics and taper per ID surgical follow up pain control dc once infection cleared dc planning to SNF for completion of antibiotics and wound care impression, plan, and exam edited and reviewed in detail care discussed with Amado Beaulieu MD Dec 09, 2019 16:58
--- NOTE | 2019-12-10 15:01 | Discharge Summary ---
Discharge Summary Discharge Summary _ DATE OF ADMISSION: 12/02/2019 DATE OF DISCHARGE: 12/09/2019 DISCHARGED BY: Dr. Flores REASON FOR ADMISSION: 59 years old male with history of HIV, on antiretroviral therapy, ureteral cancer, status post chemotherapy, radiation therapy , with a suprapubic catheter in place , was brought for evaluation due to penile discharge and groin pain. Patient reported increased purulent output and pain in the scrotum and groin. 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 No chest pain or shortness of breath. No cough. Upon evaluation patient was mildly tachycardic , heart rate 105, no fever. Laboratory work-up revealed leukocytosis with WBC 11.5, hemoglobin 7.9, hematocrit 20.3. Lactic acid to 1.1. BUN 19, creatinine 1.3. AST 41, ALT 28. Troponin negative. EKG revealed sinus tachycardia. No acute ischemic changes. Albumin 2.6. Urinalysis revealed +3 leukocyte esterase, pyuria, moderate bacteria. CT scan of the abdomen and pelvis revealed significant alteration of normal anatomy in the region of the patient's penis with a lobulated soft tissue density, fluid density and mottled tracking air lucency , extending to the base of the penis. There appeared to be an anterior open wound. Findings likely reflect combination of the patient's primary malignancy and possible superimposed infection. While in emergency department patient received IV fluids , pancultured, started on empiric antibiotic and admitted for further management. CONSULTANTS: Neurologist Dr. Larsen ID specialist Dr. Valverde Surgery Dr. Castillo HOSPITAL COURSE: Patient admitted to medical surgical floor. Patient was continued on broad-spectrum antibiotic and IV fluids. Pain management was addressed as needed. DVT prophylaxis provided. Protein supplements provided as per registered dietitian recommendation. Blood cultures were negative. Urine culture revealed Enterobacter complex. Wound culture revealed E. coli ESBL, Enterobacter complex and MRSA. Antibiotic regimen optimized as per ID specialist recommendation. Urologist closely followed and recommended to continue suprapubic catheter (last was exchanged on 12/04). Suprapubic catheter needs to be changed on a regular basis. Hand irrigate as needed. Complete antibiotic. Further management of ureteral cancer per patient's oncologist. Patient was clinically monitored . Hemoglobin and hematocrit were closely monitored with goal to keep hemoglobin above 7. Patient received 4 units of packed red blood cells while in the hospital. Last hemoglobin 12.1, hematocrit 38. General surgeon followed. Patient had a pubic cellulitis around tumor invasion. Wound care provided as per surgeon recommendation . Continue wound care at the facility. Patient clinically stabilized and was discharged to assisted facility for short-term to complete the antibiotic and for wound care. Patient was stable for discharge. FINAL DIAGNOSES: Sepsis Possible penile abscess Cellulitis Catheter associated urinary tract infection with Enterobacter Scrotal wound infection with E. coli, MRSA and Enterobacter Ureteral cancer , status post chemotherapy Anemia HIV Urinary retention with chronic suprapubic tube Probable neurogenic bladder Severe protein calorie malnutrition Hypoalbuminemia DISCHARGE MEDICATIONS: See Medication Reconciliation list. DISCHARGE INSTRUCTIONS: Patient was discharged to the assisted facility. Follow up with medical doctor at the facility. I have been assigned to dictate discharge summary for this account. I was not involved in the patient's management. Shahana Ku NP Dec 10, 2019 15:01
== END 2019-12-09 16:15 | DRG 466 ==
LOC: EDBD 09:02 → EMR 09:36 → 2E 09:47 → EDBEDREQ 12:49 → 4E 12-04 14:50
PROC: 30233N1 Transfusion of Nonautologous Red Blood Cells into Peripheral Vein, Percutaneous Approach (ICD-10-PCS; principal; 2019-12-03)
DX: T83.510A Infection and inflammatory reaction due to cystostomy catheter, initial encounter (principal); A41.9 Sepsis, unspecified organism; N48.21 Abscess of corpus cavernosum and penis; E43 Unspecified severe protein-calorie malnutrition; L02.91 Cutaneous abscess, unspecified; L03.818 Cellulitis of other sites; E88.09 Other disorders of plasma-protein metabolism, not elsewhere classified; Z85.59 Personal history of malignant neoplasm of other urinary tract organ; Z92.3 Personal history of irradiation; Z88.6 Allergy status to analgesic agent; Y83.3 Surgical operation with formation of external stoma as the cause of abnormal reaction of the patient, or of later complication, without mention of misadventure at the time of the procedure; N39.0 Urinary tract infection, site not specified; R33.9 Retention of urine, unspecified; B95.2 Enterococcus as the cause of diseases classified elsewhere; B96.20 Unspecified Escherichia coli [E. coli] as the cause of diseases classified elsewhere; B95.62 Methicillin resistant Staphylococcus aureus infection as the cause of diseases classified elsewhere; N49.2 Inflammatory disorders of scrotum; D64.9 Anemia, unspecified; F17.200 Nicotine dependence, unspecified, uncomplicated; R31.9 Hematuria, unspecified
CPT/HCPCS: 36415; 74177; 80048; 80053; 80202; 81003; 82550; 82553; 83605; 83735; 84100; 84484; 85007; 85025; 85610; 85651; 85730; 86140; 86850; 86900; 86901; 86920; 87040; 87070; 87086; 87181; 87205; 93005; 96365; 96368; 99291; J7030; J8499

== ENCOUNTER 2019-12-19 15:41 | Inpatient (IN) | payer MEDICAID ==
[~2019-12-19] VITALS: Ht 167.6 cm; Wt 59.9 kg
[~2019-12-19 15:41] MED LIST: ACETAMINOPHEN325 M1 ORAL; ALEVE220 M2 PO; AMBIEN10 M1 ORAL; BACLOFEN10 MG ORAL; BACTRIM DS TAB1 EAC1 ORAL; COLACE100 MG ORAL; DAKIN'S473 ML MC; DOCUSATE SODIU100 MG ORAL; FENOFIBRATE145 M1 ORAL; HEPARIN SO5000 UNIT2 SUBQ; HIV med; HYDROCODON-ACE1 EA13 ORAL; NORCO 10-325 T1 EACH ORAL; SYMTUZA 800-151 EACH PO; VALACYCLOVIR500 MG ORAL
[2019-12-19 16:00] VITALS: BP 100/59
--- NOTE | 2019-12-19 16:00 | NUR ---
ED Nurse Note: Pt BIBA from [facility] for elevated WBC and penile pain. Pt has history of cancer. Pt is alert and orientedx4, states he is typically bedrest. Pt has proticath on L arm that hasn't been used in past year. IV established. Labs sent.
[2019-12-19] MEDS ORDERED: Meropenem 1 GM in NS 55 ML IVPB ONE (16:15)
[2019-12-19] MEDS ORDERED: Vancomycin 1 GM in NS 275 ML IVPB ONE (16:15)
--- NOTE | 2019-12-19 16:27 | Emergency Room Report ---
History of Present Illness General Chief Complaint: Abnormal Labs Source: Patient, EMS Present Illness HPI Disclaimer: Please note that this report is being documented using DRAGON technology. This can lead to erroneous entry secondary to incorrect interpretation by the dictating instrument. HPI: 59-year-old male history of HIV on medication, urethral cancer, history of penile abscess presents for penile abscess. Patient has been admitted multiple times for infections secondary to his malignancy of his urethra. He is followed by urology and oncology. He has completed chemotherapy and undergone radiation. He denies any fevers. He was recently admitted here for infection at his site of his malignancy. Currently today he presents from his [facility] facility due to concern for worsening malignancy. Allergies: Coded Allergies: CODEINE (Verified Allergy, Unknown, 02/05/10) COVID-19 Screening Contact w/high risk pt: No Experienced COVID-19 symptoms?: No COVID-19 Testing performed MANAGER PLANT: No - unk Patient History Reviewed Nursing Documentation: PMH: Agreed; PSxH: Agreed Nursing Documentation-PMH Hx Cardiac Problems: No Hx Cancer: Yes - Urethral cancer Hx Gastrointestinal Problems: No Hx Neurological Problems: No Review of Systems All Other Systems: negative except mentioned in HPI Physical Exam Vital Signs Date Time Temp Pulse Resp B/P (MAP) Pulse Ox O2 Delivery O2 Flow Rate FiO2 12/19/19 15:42 98.4 99 19 95/57 (70) 93 Room Air Sp02 EP Interpretation: reviewed, normal General Appearance: no apparent distress, Chronically Ill Head: normocephalic, atraumatic Eyes: bilateral eye PERRL, bilateral eye EOMI ENT: hearing grossly normal, moist mucus membranes Neck: full range of motion, supple Respiratory: lungs clear, normal breath sounds, no rhonchi, no respiratory distress, no retraction, no wheezing Cardiovascular #1: normal peripheral pulses, regular rate, rhythm, no murmur Gastrointestinal: non tender, soft, non-distended, no guarding Genitourinary: other - Large area of necrosis noted in the genital region with purulent discharge, penis absent Neurologic: alert, oriented x3, no focal defects Skin: normal color, warm/dry Medical Decision Making Diagnostic Impression: Primary Impression: Penile abscess Additional Impression: Urethral cancer ER Course MDM: Patient presented for infection at the site of his urethral malignancy. He has been treated a few times for this and it appears that his infection has returned. His suprapubic region appeared necrotic and with purulent discharge. Previous record was reviewed and demonstrated per previous ID recommendations patient was receiving vancomycin and meropenem. These were given in the emergency department. Laboratory studies demonstrated leukocytosis. . Patient will require admission to the hospital for IV antibiotics and further treatment. Clinical course- Laboratory Tests Test 12/19/19 16:25 White Blood Count 16.8 K/UL (4.8-10.8) H Red Blood Count 4.43 M/UL (4.70-6.10) L Hemoglobin 13.2 G/DL (14.2-18.0) L Hematocrit 40.7 % (42.0-52.0) L Mean Corpuscular Volume 92 FL (80-99) Mean Corpuscular Hemoglobin 29.9 PG (27.0-31.0) Mean Corpuscular Hemoglobin Concent 32.5 G/DL (32.0-36.0) Red Cell Distribution Width 15.7 % (11.6-14.8) H Platelet Count 336 K/UL (150-450) Mean Platelet Volume 7.5 FL (6.5-10.1) Neutrophils (%) (Auto) 79.5 % (45.0-75.0) H Lymphocytes (%) (Auto) 10.5 % (20.0-45.0) L Monocytes (%) (Auto) 8.3 % (1.0-10.0) Eosinophils (%) (Auto) 0.6 % (0.0-3.0) Basophils (%) (Auto) 1.0 % (0.0-2.0) Prothrombin Time 12.0 SEC (9.30-11.50) H Prothrombin Time INR 1.1 (0.9-1.1) Activated Partial Thromboplast Time 28 SEC (23-33) Urine Color Fany Urine Appearance Cloudy Urine pH 6.0 (4.5-8.0) Urine Specific Dexter 1.020 (1.005-1.035) Urine Protein 1+ (NEGATIVE) H Urine Glucose (UA) Negative (NEGATIVE) Urine Ketones Negative (NEGATIVE) Urine Blood 3+ (NEGATIVE) H Urine Nitrite Positive (NEGATIVE) H Urine Bilirubin Negative (NEGATIVE) Urine Ictotest Negative (NEGATIVE) Urine Urobilinogen Normal MG/DL (0.0-1.0) Urine Leukocyte Esterase 2+ (NEGATIVE) H Urine RBC 5-10 /HPF (0 - 0) H Urine WBC 40-60 /HPF (0 - 0) H Urine Squamous Epithelial Cells Few /LPF (NONE/OCC) Urine Bacteria Many /HPF (NONE) H Sodium Level 132 MMOL/L (136-145) L Potassium Level 4.0 MMOL/L (3.5-5.1) Chloride Level 98 MMOL/L (98-107) Carbon Dioxide Level 27 MMOL/L (21-32) Anion Gap 7 mmol/L (5-15) Blood Urea Nitrogen 22 mg/dL (7-18) H Creatinine 1.4 MG/DL (0.55-1.30) H Estimated Glomerular Filtration Rate 51.7 mL/min (>60) Glucose Level 132 MG/DL (74-106) H Lactic Acid Level 1.00 mmol/L (0.4-2.0) Calcium Level 12.3 MG/DL (8.5-10.1) H Total Bilirubin 0.3 MG/DL (0.2-1.0) Aspartate Amino Transferase (AST) 20 U/L (15-37) Alanine Aminotransferase (ALT) 15 U/L (12-78) Alkaline Phosphatase 92 U/L (46-116) Total Protein 8.3 G/DL (6.4-8.2) H Albumin 2.6 G/DL (3.4-5.0) L Globulin 5.7 g/dL Albumin/Globulin Ratio 0.5 (1.0-2.7) L Plan-patient to be admitted under Dr. Enriquez Last Vital Signs Date Time Temp Pulse Resp B/P (MAP) Pulse Ox O2 Delivery O2 Flow Rate FiO2 12/19/19 15:42 98.4 99 19 95/57 (70) 93 Room Air Disposition: ADMITTED INPATIENT Condition: Serious [place] Harris M.D. Dec 19, 2019 16:27
[2019-12-19 16:51] LABS: APPEARANCE,URINE CLOUDY; COLOR,URINE AMBER; PROTEIN,URINE 1+ (NEGATIVE)
[2019-12-19 16:52] LABS: BILIRUBIN, URINE NEGATIVE (NEGATIVE); GLUCOSE, URINE (UA) NEGATIVE (NEGATIVE); KETONES,URINE NEGATIVE (NEGATIVE); LEUKOCYTE ESTERASE ,URINE 2+ (NEGATIVE); NITRITE,URINE POSITIVE (NEGATIVE); UROBILINOGEN,URINE NORMAL MG/DL (0.0-1.0)
--- NOTE | 2019-12-19 17:00 | NUR ---
ED Nurse Note: POt suprapubic cath is patent and draining. Output is 400 cc.
[2019-12-19 17:01] LABS: EOSINOPHILS % (AUTO) 0.6 % (0.0-3.0); HEMATOCRIT 40.7 % (42.0-52.0); HEMOGLOBIN 13.2 G/DL (14.2-18.0); INR 1.1 (0.9-1.1); LYMPHOCYTES % (AUTO) 10.5 % (20.0-45.0); MEAN CORPUSCULAR VOLUME 92 FL (80-99); MONOCYTES % (AUTO) 8.3 % (1.0-10.0); NEUTROPHILS % (AUTO) 79.5 % (45.0-75.0); PLATELET COUNT 336 K/UL (150-450); RED BLOOD COUNT 4.43 M/UL (4.70-6.10); RED CELL DISTRIBUTION WIDTH 15.7 % (11.6-14.8); WHITE BLOOD COUNT 16.8 K/UL (4.8-10.8)
[2019-12-19 17:02] LABS: CALCIUM 12.3 MG/DL (8.5-10.1); CREATININE 1.4 MG/DL (0.55-1.30)
[2019-12-19 17:06] LABS: ALBUMIN 2.6 G/DL (3.4-5.0); ALBUMIN/GLOBULIN RATIO 0.5 (1.0-2.7); BILIRUBIN,TOTAL 0.3 MG/DL (0.2-1.0)
[2019-12-19 18:03] VITALS: BP 104/57
[2019-12-19] MEDS ORDERED: Albuterol/Ipratropium 3ml neb HHN PRN (19:00)
--- NOTE | 2019-12-19 19:05 | NUR ---
HAND-OFF: Report given to Robbin Mcconnell
--- NOTE | 2019-12-19 20:00 | NUR ---
NURSE NOTES: Report given by Robbin Thomas RN. Patient transported. Oriented patient to the room. Kept clean and comfortable. Bed in low and locked position. Iv site noted. SKin is warm and dry to touch. Noted with Suprapubic catheter, Draining. Complained of pain, will give PRN medication once order has been received. all belongings at bedside. REfused to have orellana put on the safe. Noted with Penile abscess, open to air at the moment, pain at the site. Scrotum redness. Will call MD for admission orders. Call light is at bedside. Will reassess.
[2019-12-19] MEDS ORDERED: PERIDEX15 ML MM (20:08)
[2019-12-19] MEDS ORDERED: HYDROcodone/Acetamin 10/325 tab ORAL PRN (21:00)
[2019-12-19] MEDS: HYDROcodone/Acetamin 10/325 tab ORAL PRN (21:08)
[2019-12-19] MEDS: Heparin 5000 units/ml inj SUBQ SCH (21:13)
[2019-12-19] MEDS: Cefepime HCl 2 GM in D5W 110 ML IV SCH (21:48)
--- NOTE | 2019-12-19 22:00 | NUR ---
NURSE NOTES: Spoke with Dr. Larsen, continue pain medication and hold all other home medications until further orders.
--- NOTE | 2019-12-19 23:00 | NUR ---
NURSE NOTES: Spoke with Dr. Larsen, order not to continue home meds except pain medications. He will check medications in the AM.
[2019-12-20] VITALS: BP 94/59
--- NOTE | 2019-12-20 00:10 | NUR ---
NURSE NOTES: Informed the patient that swabs were not done and are not in the lab, refused to have swabs again at the moment. Patient noted saying they did it in the E.R. Patient is alert x 4. Call lightis at bedside.
[2019-12-20 04:00] VITALS: BP 110/63
--- NOTE | 2019-12-20 07:23 | NUR ---
NURSE HAND-OFF: Important Events on Shift:WOUND Patient Status: WNL Diet: REG Pending Orders: Pending Results/Labs: Pending MD notification: Latest Vital Signs: Temperature 97.3 , Pulse 80 , B/P 110 /63 , Respiratory Rate 18 , O2 SAT 96 , Room Air, O2 Flow Rate 5.0 . Vital Sign Comment: WNL Latest Rahman Fall Score: 35 Fall Risk: Medium Risk Safety Measures: Call light Within Reach, Bed Alarm Zone 1, Side Rails Side Rails x2, Bed position Low and Locked. Fall Precautions: Report given to MADAN Deutsch.
--- NOTE | 2019-12-20 07:42 | NUR ---
NURSE NOTES: Received report from MADAN Ortega. Patient seen in bed eating breakfast, AAOx4, able to make needs known, bed bound. Patient is on room air, breathing is even and unlabored with no SOB noted at this time. Patient noted to have penile abscess draining foul odor fluid, RN put 4x4 for drainage collection. Previous shift endorsed that patients swabs were not collected. Suprapubic catheter noted. IV site patent and intact. BEd is marcos and placed in lowest position with bed alarm on. Will continue to monitor
[2019-12-20 07:43] LABS: BASOPHILS % (AUTO) 0.5 % (0.0-2.0); EOSINOPHILS % (AUTO) 1.2 % (0.0-3.0); HEMOGLOBIN 13.1 G/DL (14.2-18.0); LYMPHOCYTES % (AUTO) 10.3 % (20.0-45.0); MEAN CORPUSCULAR VOLUME 98 FL (80-99); PLATELET COUNT 437 K/UL (150-450); RED BLOOD COUNT 3.69 M/UL (4.70-6.10); WHITE BLOOD COUNT 13.8 K/UL (4.8-10.8)
[2019-12-20 08:00] VITALS: BP 105/60
[2019-12-20] MEDS: Cefepime HCl 2 GM in D5W 110 ML IV SCH ×2 (08:06→21:30)
[2019-12-20] MEDS: HYDROcodone/Acetamin 10/325 tab ORAL PRN ×3 (08:07→17:26)
[2019-12-20] MEDS: Heparin 5000 units/ml inj SUBQ SCH ×2 (08:07→21:12)
[2019-12-20 08:18] LABS: ALBUMIN 2.4 G/DL (3.4-5.0); ALBUMIN/GLOBULIN RATIO 0.4 (1.0-2.7); BILIRUBIN,TOTAL 0.3 MG/DL (0.2-1.0); CALCIUM 12.7 MG/DL (8.5-10.1); CREATININE 1.4 MG/DL (0.55-1.30)
[2019-12-20 12:00] VITALS: BP 103/68
--- NOTE | 2019-12-20 14:50 | History & Physical ---
History and Physical History & Physicial Dictated for Int Med-Dr Enriquez no. [id number]. Javier Martel MD Dec 20, 2019 14:50
[2019-12-20] MEDS: Vancomycin 1 GM in NS 275 ML IVPB SCH (15:45)
[2019-12-20 16:00] VITALS: BP 100/65
--- NOTE | 2019-12-20 19:08 | Consultation ---
History of Present Illness General Date patient seen: Dec 20, 2019 Reason for Hospitalization: Abnormal Labs Present Illness HPI 59-year-old male well-known to me from prior admission care plan who was discharged in stable condition prior now presents with worsening wound around malignancy site. Patient with history of HIV on medication, urethral cancer, history of penile abscess presents for penile abscess. Patient has been admitted multiple times for infections secondary to his malignancy of his urethra. He is followed by urology and oncology. He has completed chemotherapy and undergone radiation. He denies any fevers. He was recently admitted here for infection at his site of his malignancy. Patient presents from his retirement facility due to concern for worsening malignancy. Surgical to evaluate assist with care. Patient seen, patient evaluated chart reviewed Allergies: Coded Allergies: CODEINE (Verified Allergy, Unknown, 02/05/10) COVID-19 Screening Contact w/high risk pt: No Experienced COVID-19 symptoms?: No Medication History Scheduled Chlorhexidine Gluconate (Peridex), 15 ML MM BID, (Reported) Darunavir/Cob/Emtri/Tenof Alaf (Symtuza [id number] mg Tab), 1 EACH PO DAILY, (Reported) Docusate Sodium* (Docusate Sodium*), 100 MG ORAL TWICE A DAY, (Reported) Fenofibrate Nanocrystallized (Fenofibrate), 145 MG ORAL DAILY, (Reported) Heparin Sod (Porcine) (Heparin Sodium*), 5,000 UNITS SUBQ EVERY 12 HOURS, (Reported) Sodium Hypochlorite (Dakin's), 473 ML MC DAILY, (Reported) Trimethoprim/Sulfamethoxazole 160/800* (Bactrim Ds Tablet*), 1 TAB ORAL DAILY, (Reported) Valacyclovir Hcl* (Valtrex*), 500 MG ORAL DAILY, (Reported) Scheduled PRN Acetaminophen* (Acetaminophen 325MG Tablet*), 650 MG ORAL Q4H PRN for Mild Pain (Pain Scale 1-3), (Reported) Baclofen* (Baclofen*), 10 MG ORAL THREE TIMES A DAY PRN for MUSCLE RELAXANT, (Reported) Docusate Sodium* (Colace*), 100 MG ORAL DAILY PRN for Constipation, (Reported) Hydrocodone Bit/Acetaminophen 10-325* ([place] 10-325*), 2 TAB ORAL Q4HR PRN for Severe Pain (Pain Scale 7-10), (Reported) Hydrocodone Bit/Acetaminophen 10-325* (Hydrocodon-Acetaminophn 10-325*), 1 TAB ORAL Q4H PRN for Moderate Pain (Pain Scale 4-6), (Reported) Zolpidem Tartrate* (Ambien*), 10 MG ORAL HS PRN for Insomnia, (Reported) Patient History History Provided By: Patient, Medical Record, PMD Healthcare decision maker Resuscitation status Advanced Directive on File Past Medical/Surgical History Past Medical/Surgical History: (1) Catheter-associated urinary tract infection (2) Abscess (3) Sepsis (4) Penile abscess (5) Urethral cancer Review of Systems Review of Symptoms General ROS: no weight loss or fever Psychological ROS: no depression or mood changes, no memory loss Ophthalmic ROS: no visual changes or eye irritation ENT ROS: no nasal congestion, hearing loss, dizziness Allergy and Immunology ROS: no allergic symptoms or urticaria Hematological and Lymphatic ROS: no swollen glands, unusual bleeding or bruising Endocrine ROS: no polyuria, polydipsia, weight changes, temperature intolerance Respiratory ROS: no cough, shortness of breath, or wheezing Cardiovascular ROS: no chest pain or dyspnea on exertion Gastrointestinal ROS: denies abdominal pain, bright red blood in stool. Musculoskeletal ROS: no myalgias or arthralgias Neurological ROS: no TIA or stroke symptoms Dermatological ROS: no new or changing skin lesions, rashes or pruritis Physical Exam Physical Exam General appearance: alert, cooperative, no distress, appears stated age Head: Normocephalic, without obvious abnormality, atraumatic Eyes: conjunctivae/corneas clear. PERRL, EOM's intact. Fundi benign Throat: Lips, mucosa, and tongue normal. Teeth and gums normal Neck: supple, symmetrical, trachea midline, no adenopathy, thyroid: not enlarged, symmetric, no tenderness/mass/nodules, no carotid bruit and no JVD Lungs: clear to auscultation bilaterally Heart: regular rate and rhythm, S1, S2 normal, no murmur, click, rub or gallop Abdomen: soft, non-tender. Bowel sounds normal. No masses, no organomegaly suprapubic in place. Penile and suprapubic and perineal urethral growth necrosis identified Extremities: extremities normal, atraumatic, no cyanosis or edema Pulses: 2+ and symmetric Skin: Skin color, texture, turgor normal. No rashes or lesions Neurologic: Grossly normal Last 24 Hour Vital Signs Date Time Temp Pulse Resp B/P (MAP) Pulse Ox O2 Delivery O2 Flow Rate FiO2 12/20/19 16:00 97.9 77 18 100/65 (77) 98 12/20/19 12:00 97.8 83 18 103/68 (80) 98 12/20/19 09:00 Room Air 12/20/19 08:00 97.6 86 18 105/60 (75) 96 12/20/19 04:00 97.3 80 18 110/63 (79) 96 12/20/19 00:00 97.7 77 18 94/59 (71) 95 12/19/19 22:14 Room Air Intake and Output 12/19/19 12/20/19 19:00 07:00 Intake Total 110 ml Output Total 400 ml 1100 ml Balance -400 ml -990 ml IV Total 110 ml Output Urine Total 400 ml 1100 ml Laboratory Tests Test 12/20/19 05:55 White Blood Count 13.8 K/UL (4.8-10.8) H Red Blood Count 3.69 M/UL (4.70-6.10) L Hemoglobin 13.1 G/DL (14.2-18.0) L Hematocrit 36.0 % (42.0-52.0) L Mean Corpuscular Volume 98 FL (80-99) Mean Corpuscular Hemoglobin 35.6 PG (27.0-31.0) H Mean Corpuscular Hemoglobin Concent 36.5 G/DL (32.0-36.0) H Red Cell Distribution Width 19.0 % (11.6-14.8) H Platelet Count 437 K/UL (150-450) Mean Platelet Volume 5.1 FL (6.5-10.1) L Neutrophils (%) (Auto) 77.0 % (45.0-75.0) H Lymphocytes (%) (Auto) 10.3 % (20.0-45.0) L Monocytes (%) (Auto) 11.0 % (1.0-10.0) H Eosinophils (%) (Auto) 1.2 % (0.0-3.0) Basophils (%) (Auto) 0.5 % (0.0-2.0) Sodium Level 136 MMOL/L (136-145) Potassium Level 4.0 MMOL/L (3.5-5.1) Chloride Level 101 MMOL/L (98-107) Carbon Dioxide Level 30 MMOL/L (21-32) Anion Gap 5 mmol/L (5-15) Blood Urea Nitrogen 20 mg/dL (7-18) H Creatinine 1.4 MG/DL (0.55-1.30) H Estimat Glomerular Filtration Rate 51.7 mL/min (>60) Glucose Level 86 MG/DL (74-106) Calcium Level 12.7 MG/DL (8.5-10.1) H Total Bilirubin 0.3 MG/DL (0.2-1.0) Aspartate Amino Transf (AST/SGOT) 17 U/L (15-37) Alanine Aminotransferase (ALT/SGPT) 8 U/L (12-78) L Alkaline Phosphatase 84 U/L (46-116) Total Protein 8.0 G/DL (6.4-8.2) Albumin 2.4 G/DL (3.4-5.0) L Globulin 5.6 g/dL Albumin/Globulin Ratio 0.4 (1.0-2.7) L Microbiology Date/Time Source Procedure Growth Status 12/20/19 10:20 Rectal Mucosa Received Height (Feet): 5 Height (Inches): 6.00 Weight (Pounds): 132 Medications Current Medications Medications (Trade) Dose Ordered Sig/Virginie Route PRN Reason Start Time Stop Time Status Last Admin Dose Admin Acetaminophen (Tylenol) 650 mg Q4H PRN ORAL fever 12/19/19 19:00 01/18/20 18:59 Acetaminophen/ Hydrocodone Bitart ([place] 10/325) 1 tab Q4H PRN ORAL Moderate Pain (Pain Scale 4-6) 12/19/19 21:00 12/26/19 20:59 Acetaminophen/ Hydrocodone Bitart ([place] 10/325) 2 tab Q4H PRN ORAL Severe Pain (Pain Scale 7-10) 12/19/19 21:00 12/26/19 20:59 12/20/19 17:26 Albuterol/ Ipratropium (Albuterol/ Ipratropium) 3 ml Q4H PRN HHN Shortness of Breath 12/19/19 19:00 12/24/19 18:59 Cefepime HCl 2 gm/ Dextrose 110 ml @ 220 mls/hr EVERY 12 HOURS IV 12/19/19 21:00 12/26/19 20:59 12/20/19 08:06 Dextrose (Dextrose 50%) 25 ml Q30M PRN IV Hypoglycemia 12/19/19 19:00 03/18/20 18:59 Dextrose (Dextrose 50%) 50 ml Q30M PRN IV Hypoglycemia 12/19/19 19:00 03/18/20 18:59 Heparin Sodium (Porcine) (Heparin 5000 units/ml) 5,000 units EVERY 12 HOURS SUBQ 12/19/19 21:00 02/02/20 20:59 12/20/19 08:07 Ondansetron HCl (Zofran) 4 mg Q6H PRN IVP Nausea & Vomiting 12/19/19 19:00 01/18/20 18:59 Polyethylene Glycol (Miralax) 17 gm DAILYPRN PRN ORAL Constipation 12/19/19 19:00 01/18/20 18:59 Temazepam (Restoril) 15 mg HSPRN PRN ORAL Insomnia 12/19/19 19:00 12/26/19 18:59 12/19/19 21:50 Vancomycin HCl (Vanco pharmacy to dose) 1 ea DAILY PRN MISC Per rx protocol 12/20/19 17:30 01/19/20 17:29 Vancomycin HCl 1 gm/Sodium Chloride 275 ml @ 183.299 mls/hr Q24H IVPB 12/20/19 16:00 12/25/19 15:59 12/20/19 15:45 Assessment/Plan Problem List: (1) Penile abscess Assessment & Plan: 61-year-old male with known urethral cancer status post chemoradiation presented with worsening wound necrosis and potential infection of the site. Patient seen prior penis necrosis falling off now remaining soft tissue in the malignancy region also with necrotic nonviable tissue identified. Drainage is serosanguineous at times sometimes serious and does not seem significant purulent. The cellulitis is minimal. Patient's labs noted. Given patient's history condition immunocompromise status recommend IV antibiotics. I discussed the patient and considerations for debriding some of the nonviable tissue though this will not in any way improve his cancer stated could help with local wound care. Patient expressed understanding we will continue to follow with local care and provide as necessary. No drainage of abscess identified at this time we will monitor thank you ICD Codes: N48.21 - Abscess of corpus cavernosum and penis SNOMED: 00805735 (2) Urethral cancer ICD Codes: C68.0 - Malignant neoplasm of urethra SNOMED: 957525928 (3) Abscess ICD Codes: L02.91 - Cutaneous abscess, unspecified SNOMED: 692652297 (4) Sepsis ICD Codes: A41.9 - Sepsis, unspecified organism SNOMED: 42476811 (5) Catheter-associated urinary tract infection ICD Codes: T83.511A - Infection and inflammatory reaction due to indwelling urethral catheter, initial encounter; N39.0 - Urinary tract infection, site not specified SNOMED: 934820803 [facility] Hospital declaration Osmanite Romain Li Dec 20, 2019 19:08
--- NOTE | 2019-12-20 19:18 | NUR ---
NURSE HAND-OFF: Important Events on Shift:constant dressing change, norco q4 Patient Status: stable Diet: regular Pending Orders: n/a Pending Results/Labs:n/a Pending MD notification:n/a Latest Vital Signs: Temperature 97.9 , Pulse 77 , B/P 100 /65 , Respiratory Rate 18 , O2 SAT 98 , Room Air, O2 Flow Rate 5.0 . Vital Sign Comment: stable Latest Rahman Fall Score: 35 Fall Risk: Medium Risk Safety Measures: Call light Within Reach, Bed Alarm Zone 1, Side Rails Side Rails x2, Bed position Low and Locked. Fall Precautions: Yellow Socks Patient Fall Education Report given to Tejal, RN.
[2019-12-20 20:00] VITALS: BP 110/68
--- NOTE | 2019-12-20 20:04 | NUR ---
NURSE NOTES: RECEIVED PATIENT FROM MADAN LUNDBERG. PATIENT IS AWAKE, AAOX4, ON ROOM AIR, NO ACUTE DISTRESS NOTED. PATIENT DENIES CHEST PAIN, AND SOB. C/O MILD PAIN IN PENILE AREA BUT TOLERABLE. SUPRAPUBIC CATH IN PLACE, DRAINING WELL, ANCHOR PRESENT, STRAW COLOR URINE NOTED. PIV ON LEFT AC 18G INTACT AND PATENT. WOUND DRESSINGS ARE INTACT ON PENILE AREA. BED IS LOCKED AND LOW, BED ALARMS ACTIVE, SIDE RAILS UPX2 AND CALL LIGHT IS WITHIN REACH. WILL CONTINUE TO MONITOR.
--- NOTE | 2019-12-20 20:45 | History and Physical Report ---
DATE OF ADMISSION: 12/19/2019 CHIEF COMPLAINT: The patient is a 59-year-old male with history of urethral cancer, who presents with chief complaint of penile abscess. HISTORY OF PRESENT ILLNESS: The patient was admitted to [facility] on December 01 through December 09, 2019, for penile abscess and sepsis. The patient was discharged to [facility] on antibiotics. According to the patient, he began to experience increasing odor coming from the penile region. The patient also had purulent discharge. According to staff at [facility], the patient has been running low-grade fevers. The patient presented to [facility]. The patient is admitted with penile abscess and urinary tract infection. REVIEW OF SYSTEMS: CONSTITUTIONAL: The patient denies weight loss or weight gain. The patient denies fevers or chills. HEENT: The patient denies ear or throat pain. The patient denies headache. CARDIOVASCULAR: The patient denies palpitations or chest pain. CHEST: The patient denies wheeze or shortness of breath. ABDOMINAL: The patient denies nausea, vomiting, diarrhea, or constipation. GENITOURINARY: The patient denies dysuria or increased frequency of urination. NEUROMUSCULAR: The patient denies seizures or generalized weakness. GENITOURINARY: The patient complains of foul-smelling abscess on the penis as above. The patient denies dysuria. NEUROMUSCULAR: The patient denies seizures or generalized weakness. PAST MEDICAL HISTORY: Significant for: 1. Urethral cancer, for which the patient is followed as an outpatient by . The patient is status post chemotherapy and radiation therapy 1 year ago. 2. HIV positive for approximately 20 years. PAST SURGICAL HISTORY: Significant for suprapubic catheter placement. CURRENT MEDICATIONS: 1. Bactrim double-strength 1 tablet p.o. daily for urinary tract infection prophylaxis. 2. Docusate 100 mg p.o. twice daily p.r.n. 3. Fenofibrate 145 mg p.o. nightly. 4. [place] 10/325 mg 1 tablet p.o. q.4h. p.r.n. 5. Symtuza 800/150/200/10 mg 1 tablet p.o. daily for HIV. 6. Valacyclovir 500 mg p.o. daily. 7. Ambien 10 mg p.o. nightly. ALLERGIES: Codeine. SOCIAL HISTORY: The patient is single and is a resident of [facility]. The patient admits to previous tobacco use of one pack per day, however, he quit 8 months ago. The patient admits to rare alcohol use. PHYSICAL EXAMINATION: VITAL SIGNS: Temperature 98.4, respirations 19, pulse 99, blood pressure 95/57. GENERAL: The patient is a well-developed and well-nourished male, in no apparent distress. HEENT: Eyes, pupils equal and responsive to light and accommodation. Extraocular movements are intact. NECK: Supple without lymphadenopathy. CHEST: Lungs are clear to auscultation bilaterally without wheezes or rales. CARDIOVASCULAR: Regular rate. S1, S2 are normal without murmurs, rubs, or gallops. ABDOMEN: Soft, nontender, and nondistended. Positive bowel sounds. No evidence of hepatosplenomegaly. Currently, no rebound or guarding noted. EXTREMITIES: Negative for clubbing, cyanosis, or edema. RECTAL AND GENITAL: There is a large fungating mass over the penile and scrotal region. There is foul odor. NEUROLOGICAL: Cranial nerves II through XII are grossly intact without focal deficits. Motor strength is 5/5 bilaterally intact. Deep tendon reflexes are 2+, plantar. LABORATORY STUDIES: WBC 16.8, hemoglobin 13.2, hematocrit 40.7, platelets 336,000. Sodium 132, potassium 4.0, chloride 98, CO2 of 27, BUN 22, creatinine 1.4, glucose 132. Urinalysis showed 1+ protein, 3+ blood, nitrite positive with 40-60 wbc. Urine culture is pending. ASSESSMENT: This is a 59-year-old male with: 1. Urinary tract infection. 2. Penile abscess. 3. HIV. 4. Urethral cancer. TREATMENT: 1. Urinary tract infection/penile abscess. A urine culture is pending. The patient has been started empirically on vancomycin and cefepime. An Infectious Disease consultation has been obtained with Dr. Rider. The patient was recently hospitalized and is currently on Bactrim prophylaxis. Await urine culture results. Await Infectious Disease consultation. 2. HIV. Continue Symtuza as above. 3. Penile/urethral cancer. An Oncology consultation has been obtained with Dr. Horta. A Urology consultation has been obtained with Dr. Chas Larsen. Follow recommendations of Urology and Oncology. Javier Martel M.D. DR: Yanely JOB#: [id number] CC:
--- NOTE | 2019-12-20 21:30 | Consultation ---
DATE OF CONSULTATION: 12/20/2019 CONSULTING PHYSICIAN: Chas Larsen M.D. REFERRING PHYSICIAN: Javier Martel M.D. REASON FOR CONSULTATION: For followup of urethral cancer, suprapubic tube, UTI. HISTORY OF PRESENT ILLNESS: This is a 59-year-old male. He has a history of urethral cancer. He has been followed at an outside facility at [facility]. He has had chemotherapy and radiation. He has a chronic suprapubic tube. He was evaluated recently and a suprapubic tube was last changed on 12/04/2018. He was readmitted because of UTI. Followup Urology evaluation requested. PAST MEDICAL HISTORY: Significant as above. Also, history of HIV. PAST SURGICAL HISTORY: As above. MEDICATIONS: Current medication list was reviewed. ALLERGIES: To codeine. PHYSICAL EXAMINATION: GENERAL: Well-developed, well-nourished male, in no acute distress. VITAL SIGNS: Temperature is 97.8, blood pressure is 103/68, pulse 83, respirations 18. ABDOMEN: Soft. Suprapubic tube is in place. Urine is charli. GENITOURINARY: Reveals old dry gangrenous tissue at the penis and scrotal area, which appears similar to that during the last admission. LABORATORY DATA: BUN is 20, creatinine 1.4. White count is 13.8, hemoglobin 13.1. UA showed 1+ protein, 5 to 10 rbc's, 4 to 6 wbc's, many bacteria. Urine culture shows Gram-negative rods. DIAGNOSTIC IMAGING STUDIES: The patient had a CT scan during the last admission and this was reviewed. IMPRESSION: 1. History of urethral cancer, status post chemo and immunotherapy and radiation with previous debridement. Suprapubic tube is in place. 2. Urinary retention and a chronic suprapubic tube. 3. Probable neurogenic bladder. 4. UTI and colonization. 5. Hematuria. 6. Proteinuria. 7. Mild acute kidney injury. PLAN AND DISCUSSION: The patient again does have urethral CA. His physical findings are very similar to what it was during the last admission and looks like chronic dry gangrene. I do not see any obvious fluctuance clinically. He is to continue with antibiotics as ordered. His suprapubic tube was changed about 2 weeks ago. I will plan on changing it again before he leaves and he can have followup with his urologist at a tertiary care center and likely have elective further debridement and treatment of the urethral cancer. This was discussed with Dr. Martel. Thank you for this consultation. Chas Larsen M.D. DR: MIRIAM JOB#: [id number] CC:
[2019-12-21] VITALS: BP 114/65
[2019-12-21] MEDS: HYDROcodone/Acetamin 10/325 tab ORAL PRN ×5 (01:19→20:41)
[2019-12-21 04:00] VITALS: BP 107/70
--- NOTE | 2019-12-21 06:42 | NUR ---
NURSE HAND-OFF: Important Events on Shift: PERFORMED WOUND CARE, PAIN MANAGEMENT. Patient Status: STABLE Diet: REGULAR Pending Orders: N/A Pending Results/Labs: CBC, CMP Pending MD notification: N/A Latest Vital Signs: Temperature 97.6 , Pulse 81 , B/P 107 /70 , Respiratory Rate 17 , O2 SAT 95 , Room Air, O2 Flow Rate 5.0 . Vital Sign Comment: STABLE Latest Rahman Fall Score: 35 Fall Risk: Medium Risk Safety Measures: Call light Within Reach, Bed Alarm Zone 1, Side Rails Side Rails x2, Bed position Low and Locked. Fall Precautions: Yellow Socks Patient Fall Education
--- NOTE | 2019-12-21 07:06 | Consultation ---
History of Present Illness General Chief Complaint: Abnormal Labs Present Illness Allergies: Coded Allergies: CODEINE (Verified Allergy, Unknown, 02/05/10) Medication History Scheduled Chlorhexidine Gluconate (Peridex), 15 ML MM BID, (Reported) Darunavir/Cob/Emtri/Tenof Alaf (Symtuza 237-373-290-10 mg Tab), 1 EACH PO DAILY, (Reported) Docusate Sodium* (Docusate Sodium*), 100 MG ORAL TWICE A DAY, (Reported) Fenofibrate Nanocrystallized (Fenofibrate), 145 MG ORAL DAILY, (Reported) Heparin Sod (Porcine) (Heparin Sodium*), 5,000 UNITS SUBQ EVERY 12 HOURS, (Reported) Sodium Hypochlorite (Dakin's), 473 ML MC DAILY, (Reported) Trimethoprim/Sulfamethoxazole 160/800* (Bactrim Ds Tablet*), 1 TAB ORAL DAILY, (Reported) Valacyclovir Hcl* (Valtrex*), 500 MG ORAL DAILY, (Reported) Scheduled PRN Acetaminophen* (Acetaminophen 325MG Tablet*), 650 MG ORAL Q4H PRN for Mild Pain (Pain Scale 1-3), (Reported) Baclofen* (Baclofen*), 10 MG ORAL THREE TIMES A DAY PRN for MUSCLE RELAXANT, (Reported) Docusate Sodium* (Colace*), 100 MG ORAL DAILY PRN for Constipation, (Reported) Hydrocodone Bit/Acetaminophen 10-325* ([place] 10-325*), 2 TAB ORAL Q4HR PRN for Severe Pain (Pain Scale 7-10), (Reported) Hydrocodone Bit/Acetaminophen 10-325* (Hydrocodon-Acetaminophn 10-325*), 1 TAB ORAL Q4H PRN for Moderate Pain (Pain Scale 4-6), (Reported) Zolpidem Tartrate* (Ambien*), 10 MG ORAL HS PRN for Insomnia, (Reported) Patient History Healthcare decision maker Resuscitation status Advanced Directive on File Physical Exam Last 24 Hour Vital Signs Date Time Temp Pulse Resp B/P (MAP) Pulse Ox O2 Delivery O2 Flow Rate FiO2 12/21/19 04:00 97.6 81 17 107/70 (82) 95 12/21/19 00:00 99.1 79 18 114/65 (81) 94 12/20/19 21:00 Room Air 12/20/19 20:00 99.7 85 17 110/68 (82) 99 12/20/19 16:00 97.9 77 18 100/65 (77) 98 12/20/19 12:00 97.8 83 18 103/68 (80) 98 12/20/19 09:00 Room Air 12/20/19 08:00 97.6 86 18 105/60 (75) 96 Intake and Output 12/20/19 12/21/19 19:00 07:00 Intake Total 710 ml 220 ml Output Total 1000 ml Balance 710 ml -780 ml Intake Oral 600 ml IV Total 110 ml 220 ml Output Urine Total 1000 ml # Bowel Movements 1 Laboratory Tests Test 12/21/19 06:20 White Blood Count Pending Red Blood Count Pending Hemoglobin Pending Hematocrit Pending Mean Corpuscular Volume Pending Mean Corpuscular Hemoglobin Pending Mean Corpuscular Hemoglobin Concent Pending Red Cell Distribution Width Pending Platelet Count Pending Mean Platelet Volume Pending Neutrophils (%) (Auto) Pending Lymphocytes (%) (Auto) Pending Monocytes (%) (Auto) Pending Eosinophils (%) (Auto) Pending Basophils (%) (Auto) Pending Erythrocyte Sedimentation Rate Pending Prothrombin Time Pending Prothromb Time International Ratio Pending Activated Partial Thromboplast Time Pending Sodium Level Pending Potassium Level Pending Chloride Level Pending Carbon Dioxide Level Pending Blood Urea Nitrogen Pending Creatinine Pending Estimat Glomerular Filtration Rate Pending Glucose Level Pending Calcium Level Pending C-Reactive Protein, Quantitative Pending Prealbumin Pending Microbiology Date/Time Source Procedure Growth Status 12/20/19 10:20 Rectal Mucosa Received Height (Feet): 5 Height (Inches): 6.00 Weight (Pounds): 132 Medications Current Medications Medications (Trade) Dose Ordered Sig/Virginie Route PRN Reason Start Time Stop Time Status Last Admin Dose Admin Acetaminophen (Tylenol) 650 mg Q4H PRN ORAL fever 12/19/19 19:00 01/18/20 18:59 Acetaminophen/ Hydrocodone Bitart ([place] 10/325) 1 tab Q4H PRN ORAL Moderate Pain (Pain Scale 4-6) 12/19/19 21:00 12/26/19 20:59 Acetaminophen/ Hydrocodone Bitart ([place] 10/325) 2 tab Q4H PRN ORAL Severe Pain (Pain Scale 7-10) 12/19/19 21:00 12/26/19 20:59 12/21/19 05:40 Albuterol/ Ipratropium (Albuterol/ Ipratropium) 3 ml Q4H PRN HHN Shortness of Breath 12/19/19 19:00 12/24/19 18:59 Cefepime HCl 2 gm/ Dextrose 110 ml @ 220 mls/hr EVERY 12 HOURS IV 12/19/19 21:00 12/26/19 20:59 12/20/19 21:30 Dextrose (Dextrose 50%) 25 ml Q30M PRN IV Hypoglycemia 12/19/19 19:00 03/18/20 18:59 Dextrose (Dextrose 50%) 50 ml Q30M PRN IV Hypoglycemia 12/19/19 19:00 03/18/20 18:59 Heparin Sodium (Porcine) (Heparin 5000 units/ml) 5,000 units EVERY 12 HOURS SUBQ 12/19/19 21:00 02/02/20 20:59 12/20/19 21:12 Ondansetron HCl (Zofran) 4 mg Q6H PRN IVP Nausea & Vomiting 12/19/19 19:00 01/18/20 18:59 Polyethylene Glycol (Miralax) 17 gm DAILYPRN PRN ORAL Constipation 12/19/19 19:00 01/18/20 18:59 Temazepam (Restoril) 15 mg HSPRN PRN ORAL Insomnia 12/19/19 19:00 12/26/19 18:59 12/19/19 21:50 Vancomycin HCl (Vanco pharmacy to dose) 1 ea DAILY PRN MISC Per rx protocol 12/20/19 17:30 01/19/20 17:29 Vancomycin HCl 1 gm/Sodium Chloride 275 ml @ 183.299 mls/hr Q24H IVPB 12/20/19 16:00 12/25/19 15:59 12/20/19 15:45 Assessment/Plan Assessment/Plan: Oncology Consultation ROSELYN ANTOINE: Nicolas Martel RFC: Urothelial cancer DOS: 12/21/2019 HPI: 59-year-old male history of HIV on medication, urethral cancer, history of penile abscess presents for penile abscess. Patient has been admitted multiple times for infections secondary to his malignancy of his urethra. He is followed by urology and oncology. He has completed chemotherapy and undergone radiation. He denies any fevers. He was recently admitted here for infection at his site of his malignancy. Currently today he presents from his halfway facility due to concern for worsening malignancy. Labs have been reviewed and noted to still have infection, is on abx per id. Coded Allergies: CODEINE (Verified Allergy, Unknown, 02/05/10) COVID-19 Screening Contact w/high risk pt: No Experienced COVID-19 symptoms?: No COVID-19 Testing performed ENDOSCOPY TECHNICAN: No - unk Patient History Reviewed Nursing Documentation: PMH: Agreed; PSxH: Agreed Nursing Documentation-PMH Hx Cardiac Problems: No Hx Cancer: Yes - Urethral cancer Hx Gastrointestinal Problems: No Hx Neurological Problems: No Review of Systems All Other Systems: negative except mentioned in HPI Physical Exam Sp02 EP Interpretation: reviewed, normal General: no apparent distress, Chronically Ill Heent: normocephalic, atraumatic Respiratory: lungs clear, normal breath sounds Cardiovascular: normal peripheral pulses, regular rate Gastrointestinal: non tender, soft, non-distended, no guarding Genitourinary: other - Large area of necrosis noted in the genital region with purulent discharge, ++suprapub catheter Neurologic: alert, oriented x3 Skin: normal color, warm/dry Labs: reviewed Imaging: noted Assessment and Recs # 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 Leonard at [facility], per patient is his med onc --> labs have been reviewed, hold off on tumor markers --> has been seen by Dr. Larsen here and recs noted # Leukocytosis likely due to Penile abscess --> requires abx as per id --> wbc 13 # Urinary retention with chronic suprapubic tube. --> per uro, surg care # Probable neurogenic bladder. # Urinary tract infection and colonization. # Hematuria. Appreciate consultation and dw Mandeep Law MD Dec 21, 2019 07:06
[2019-12-21 07:19] LABS: EOSINOPHILS % (AUTO) 1.5 % (0.0-3.0); HEMATOCRIT 32.7 % (42.0-52.0); HEMOGLOBIN 12.6 G/DL (14.2-18.0); LYMPHOCYTES % (AUTO) 12.9 % (20.0-45.0); MEAN CORPUSCULAR VOLUME 97 FL (80-99); MONOCYTES % (AUTO) 11.3 % (1.0-10.0); NEUTROPHILS % (AUTO) 73.3 % (45.0-75.0); PLATELET COUNT 395 K/UL (150-450); RED BLOOD COUNT 3.38 M/UL (4.70-6.10); RED CELL DISTRIBUTION WIDTH 18.6 % (11.6-14.8); WHITE BLOOD COUNT 12.5 K/UL (4.8-10.8)
--- NOTE | 2019-12-21 07:31 | NUR ---
HAND-OFF: Report given to MADAN Tatum.
--- NOTE | 2019-12-21 07:44 | NUR ---
NURSE NOTES: Received report from Tejal, RN. Patient seen in bed eating breakfast, AAOx4, able to make needs known, bed bound. Patient is on room air, breathing is even and unlabored with no SOB noted at this time. Patient complained of pain, RN will give pain medication PRN. Patient noted to have penile abscess draining foul odor fluid, RN put 4x4 for drainage collection. IV site patent and intact. Bed is locked and placed in lowest position with bed alarm on. Will continue to monitor
[2019-12-21 07:48] LABS: INR 1.1 (0.9-1.1)
[2019-12-21 07:50] LABS: CALCIUM 11.9 MG/DL (8.5-10.1); CREATININE 1.3 MG/DL (0.55-1.30); POTASSIUM 4.3 MMOL/L (3.5-5.1)
[2019-12-21 08:00] VITALS: BP 98/60
[2019-12-21] MEDS: Heparin 5000 units/ml inj SUBQ SCH ×2 (08:25→20:03)
[2019-12-21] MEDS: Cefepime HCl 2 GM in D5W 110 ML IV SCH ×2 (08:25→20:02)
--- NOTE | 2019-12-21 08:41 | Urology Progress Note ---
Assessment/Plan Assessment/Plan: 1. History of urethral cancer, status post chemo and immunotherapy and radiation with previous debridement. 2. Urinary retention and a chronic suprapubic tube. 3. Probable neurogenic bladder. 4. UTI and colonization. 5. Hematuria. 6. Proteinuria. 7. Mild acute kidney injury. monitor clinically maintain SPT hand irrigated and do PRN abx as ordered f/u on urine cx local wound care Subjective Allergies: Coded Allergies: CODEINE (Verified Allergy, Unknown, 02/05/10) Subjective all noted, no new changes Objective Last 24 Hour Vital Signs Date Time Temp Pulse Resp B/P (MAP) Pulse Ox O2 Delivery O2 Flow Rate FiO2 12/21/19 04:00 97.6 81 17 107/70 (82) 95 12/21/19 00:00 99.1 79 18 114/65 (81) 94 12/20/19 21:00 Room Air 12/20/19 20:00 99.7 85 17 110/68 (82) 99 12/20/19 16:00 97.9 77 18 100/65 (77) 98 12/20/19 12:00 97.8 83 18 103/68 (80) 98 12/20/19 09:00 Room Air Intake and Output 12/20/19 12/21/19 19:00 07:00 Intake Total 710 ml 220 ml Output Total 1000 ml Balance 710 ml -780 ml Intake Oral 600 ml IV Total 110 ml 220 ml Output Urine Total 1000 ml # Bowel Movements 1 Microbiology Date/Time Source Procedure Growth Status 12/20/19 10:20 Rectal Mucosa Received 12/19/19 16:25 Urine,Clean Catch Urine Culture - Preliminary Gram Negative Atilio Resulted Current Medications Medications (Trade) Dose Ordered Sig/Virginie Route PRN Reason Start Time Stop Time Status Last Admin Dose Admin Acetaminophen (Tylenol) 650 mg Q4H PRN ORAL fever 12/19/19 19:00 01/18/20 18:59 Acetaminophen/ Hydrocodone Bitart ([place] 10/325) 1 tab Q4H PRN ORAL Moderate Pain (Pain Scale 4-6) 12/19/19 21:00 12/26/19 20:59 Acetaminophen/ Hydrocodone Bitart ([place] 10/325) 2 tab Q4H PRN ORAL Severe Pain (Pain Scale 7-10) 12/19/19 21:00 12/26/19 20:59 12/21/19 05:40 Albuterol/ Ipratropium (Albuterol/ Ipratropium) 3 ml Q4H PRN HHN Shortness of Breath 12/19/19 19:00 12/24/19 18:59 Cefepime HCl 2 gm/ Dextrose 110 ml @ 220 mls/hr EVERY 12 HOURS IV 12/19/19 21:00 12/26/19 20:59 12/21/19 08:25 Dextrose (Dextrose 50%) 25 ml Q30M PRN IV Hypoglycemia 12/19/19 19:00 03/18/20 18:59 Dextrose (Dextrose 50%) 50 ml Q30M PRN IV Hypoglycemia 12/19/19 19:00 03/18/20 18:59 Heparin Sodium (Porcine) (Heparin 5000 units/ml) 5,000 units EVERY 12 HOURS SUBQ 12/19/19 21:00 02/02/20 20:59 12/21/19 08:25 Ondansetron HCl (Zofran) 4 mg Q6H PRN IVP Nausea & Vomiting 12/19/19 19:00 01/18/20 18:59 Polyethylene Glycol (Miralax) 17 gm DAILYPRN PRN ORAL Constipation 12/19/19 19:00 01/18/20 18:59 Temazepam (Restoril) 15 mg HSPRN PRN ORAL Insomnia 12/19/19 19:00 12/26/19 18:59 12/19/19 21:50 Vancomycin HCl ([facility] pharmacy to dose) 1 ea DAILY PRN MISC Per rx protocol 12/20/19 17:30 01/19/20 17:29 Vancomycin HCl 1 gm/Sodium Chloride 275 ml @ 183.299 mls/hr Q24H IVPB 12/20/19 16:00 12/25/19 15:59 12/20/19 15:45 Laboratory Tests 12/21/19 06:20: White Blood Count 12.5H, Red Blood Count 3.38L, Hemoglobin 12.6L, Hematocrit 32.7L, Mean Corpuscular Volume 97, Mean Corpuscular Hemoglobin 37.3H, Mean Corpuscular Hemoglobin Concent 38.6H, Red Cell Distribution Width 18.6H, Platelet Count 395, Mean Platelet Volume 5.3L, Neutrophils (%) (Auto) 73.3, Lymphocytes (%) (Auto) 12.9L, Monocytes (%) (Auto) 11.3H, Eosinophils (%) (Auto) 1.5, Basophils (%) (Auto) 1.0, Erythrocyte Sedimentation Rate [Pending], Prothrombin Time 11.8H, Prothromb Time International Ratio 1.1, Activated Partial Thromboplast Time 30, Sodium Level 135L, Potassium Level 4.3, Chloride Level 102, Carbon Dioxide Level 30, Anion Gap 3L, Blood Urea Nitrogen 16, Creatinine 1.3, Estimat Glomerular Filtration Rate 56.3, Glucose Level 94, Calcium Level 11.9H, C-Reactive Protein, Quantitative 32.4H, Prealbumin [Pendin g] Height (Feet): 5 Height (Inches): 6.00 Weight (Pounds): 132 Objective exam stable Chas Larsen MD Dec 21, 2019 08:41
--- NOTE | 2019-12-21 11:33 | Pulmonology Progress Note ---
Subjective ROS Limited/Unobtainable: No Constitutional: Reports: no symptoms HEENT: Repors: no symptoms Allergies: Coded Allergies: CODEINE (Verified Allergy, Unknown, 02/05/10) Objective Last 24 Hour Vital Signs Date Time Temp Pulse Resp B/P (MAP) Pulse Ox O2 Delivery O2 Flow Rate FiO2 12/21/19 09:00 Room Air 12/21/19 08:00 98.1 67 19 98/60 (73) 96 12/21/19 04:00 97.6 81 17 107/70 (82) 95 12/21/19 00:00 99.1 79 18 114/65 (81) 94 12/20/19 21:00 Room Air 12/20/19 20:00 99.7 85 17 110/68 (82) 99 12/20/19 16:00 97.9 77 18 100/65 (77) 98 12/20/19 12:00 97.8 83 18 103/68 (80) 98 Intake and Output 12/20/19 12/21/19 19:00 07:00 Intake Total 710 ml 220 ml Output Total 1000 ml Balance 710 ml -780 ml Intake Oral 600 ml IV Total 110 ml 220 ml Output Urine Total 1000 ml # Bowel Movements 1 General Appearance: cachetic HEENT: normocephalic, atraumatic Respiratory: chest wall non-tender, lungs clear Cardiovascular: normal peripheral pulses, normal rate, regular rhythm Abdomen: normal bowel sounds, soft, non tender Genitourinary: normal external genitalia Extremities: no cyanosis Skin: no rash Neurologic: posting clerk II-XII grossly normal Microbiology Date/Time Source Procedure Growth Status 12/20/19 10:20 Rectal Mucosa Received 12/19/19 16:25 Urine,Clean Catch Urine Culture - Preliminary Gram Negative Atilio Resulted Laboratory Tests 12/21/19 06:20: White Blood Count 12.5H, Red Blood Count 3.38L, Hemoglobin 12.6L, Hematocrit 32.7L, Mean Corpuscular Volume 97, Mean Corpuscular Hemoglobin 37.3H, Mean Corpuscular Hemoglobin Concent 38.6H, Red Cell Distribution Width 18.6H, Platelet Count 395, Mean Platelet Volume 5.3L, Neutrophils (%) (Auto) 73.3, Lymphocytes (%) (Auto) 12.9L, Monocytes (%) (Auto) 11.3H, Eosinophils (%) (Auto) 1.5, Basophils (%) (Auto) 1.0, Erythrocyte Sedimentation Rate 19, Prothrombin Time 11.8H, Prothromb Time International Ratio 1.1, Activated Partial Thromboplast Time 30, Sodium Level 135L, Potassium Level 4.3, Chloride Level 102, Carbon Dioxide Level 30, Anion Gap 3L, Blood Urea Nitrogen 16, Creatinine 1.3, Estimat Glomerular Filtration Rate 56.3, Glucose Level 94, Calcium Level 11.9H, C-Reactive Protein, Quantitative 32.4H, Prealbumin [Pending] Current Medications Medications (Trade) Dose Ordered Sig/Virginie Route PRN Reason Start Time Stop Time Status Last Admin Dose Admin Acetaminophen (Tylenol) 650 mg Q4H PRN ORAL fever 12/19/19 19:00 01/18/20 18:59 Acetaminophen/ Hydrocodone Bitart ([place] 10/325) 1 tab Q4H PRN ORAL Moderate Pain (Pain Scale 4-6) 12/19/19 21:00 12/26/19 20:59 Acetaminophen/ Hydrocodone Bitart ([place] 10/325) 2 tab Q4H PRN ORAL Severe Pain (Pain Scale 7-10) 12/19/19 21:00 12/26/19 20:59 12/21/19 10:03 Albuterol/ Ipratropium (Albuterol/ Ipratropium) 3 ml Q4H PRN HHN Shortness of Breath 12/19/19 19:00 12/24/19 18:59 Cefepime HCl 2 gm/ Dextrose 110 ml @ 220 mls/hr EVERY 12 HOURS IV 12/19/19 21:00 12/26/19 20:59 12/21/19 08:25 Dextrose (Dextrose 50%) 25 ml Q30M PRN IV Hypoglycemia 12/19/19 19:00 03/18/20 18:59 Dextrose (Dextrose 50%) 50 ml Q30M PRN IV Hypoglycemia 12/19/19 19:00 03/18/20 18:59 Heparin Sodium (Porcine) (Heparin 5000 units/ml) 5,000 units EVERY 12 HOURS SUBQ 12/19/19 21:00 02/02/20 20:59 12/21/19 08:25 Ondansetron HCl (Zofran) 4 mg Q6H PRN IVP Nausea & Vomiting 12/19/19 19:00 01/18/20 18:59 Polyethylene Glycol (Miralax) 17 gm DAILYPRN PRN ORAL Constipation 12/19/19 19:00 01/18/20 18:59 Temazepam (Restoril) 15 mg HSPRN PRN ORAL Insomnia 12/19/19 19:00 12/26/19 18:59 12/19/19 21:50 Vancomycin HCl (Vanco pharmacy to dose) 1 ea DAILY PRN MISC Per rx protocol 12/20/19 17:30 01/19/20 17:29 Vancomycin HCl 1 gm/Sodium Chloride 275 ml @ 183.299 mls/hr Q24H IVPB 12/20/19 16:00 12/25/19 15:59 12/20/19 15:45 Assessment/Plan Problems: (1) Penile abscess (2) Catheter-associated urinary tract infection (3) Sepsis Assessment/Plan Urine has GNR continue abx ID evaluation symptomatic treatment dvt prophylaxis. Jasbir Larsen MD Dec 21, 2019 11:33
[2019-12-21 12:00] VITALS: BP 100/60
--- NOTE | 2019-12-21 14:12 | Consultation ---
History of Present Illness General Date patient seen: Dec 21, 2019 Chief Complaint: Abnormal Labs Present Illness HPI 59 y/o M with hx of HIV on Symtuza (dx'ed 20 yrs ago), former smoker (quit 8yrs ago), recurrent UTI on bactrim ppx, urethral CA dx'ed 2018 sp chemotherapy x 12 sessions and radiation x8 sessions and surgical intervention (follows at [facility]), penile abscess, urinary retention sp chronic suprapubic tube, SNF resident ([facility]) presented to ED on 12/19/19 with worsening wound around malignancy site and increasing odor and purulent discharge coming from penile region. Low grade fevers at SNF. Denied fevers/chills, KERR Allergies: Coded Allergies: CODEINE (Verified Allergy, Unknown, 02/05/10) Medication History Scheduled Chlorhexidine Gluconate (Peridex), 15 ML MM BID, (Reported) Darunavir/Cob/Emtri/Tenof Alaf ([place] 995-969-418-10 mg Tab), 1 EACH PO DAILY, (Reported) Docusate Sodium* (Docusate Sodium*), 100 MG ORAL TWICE A DAY, (Reported) Fenofibrate Nanocrystallized (Fenofibrate), 145 MG ORAL DAILY, (Reported) Heparin Sod (Porcine) (Heparin Sodium*), 5,000 UNITS SUBQ EVERY 12 HOURS, (Reported) Sodium Hypochlorite (Dakin's), 473 ML MC DAILY, (Reported) Trimethoprim/Sulfamethoxazole 160/800* (Bactrim Ds Tablet*), 1 TAB ORAL DAILY, (Reported) Valacyclovir Hcl* (Valtrex*), 500 MG ORAL DAILY, (Reported) Scheduled PRN Acetaminophen* (Acetaminophen 325MG Tablet*), 650 MG ORAL Q4H PRN for Mild Pain (Pain Scale 1-3), (Reported) Baclofen* (Baclofen*), 10 MG ORAL THREE TIMES A DAY PRN for MUSCLE RELAXANT, (Reported) Docusate Sodium* (Colace*), 100 MG ORAL DAILY PRN for Constipation, (Reported) Hydrocodone Bit/Acetaminophen 10-325* ([place] 10-325*), 2 TAB ORAL Q4HR PRN for Severe Pain (Pain Scale 7-10), (Reported) Hydrocodone Bit/Acetaminophen 10-325* (Hydrocodon-Acetaminophn 10-325*), 1 TAB ORAL Q4H PRN for Moderate Pain (Pain Scale 4-6), (Reported) Zolpidem Tartrate* (Ambien*), 10 MG ORAL HS PRN for Insomnia, (Reported) Patient History Healthcare decision maker Resuscitation status Advanced Directive on File Patient History Narrative Pmhx: as above Shx: The patient is single and is a resident of [facility]. The patient admits to previous tobacco use of one pack per day, however, he quit 8 months ago. The patient admits to rare alcohol use. Fhx: non contributory Physical Exam Physical Exam Narrative GENERAL: The patient is a well-developed and well-nourished male, in no apparent distress. HEENT: Eyes, pupils equal and responsive to light and accommodation. Extraocular movements are intact. NECK: Supple without lymphadenopathy. CHEST: Lungs are clear to auscultation bilaterally without wheezes or rales. CARDIOVASCULAR: Regular rate. S1, S2 are normal without murmurs, rubs, or gallops. ABDOMEN: Soft, nontender, and nondistended. Positive bowel sounds. No evidence of hepatosplenomegaly. Currently, no rebound or guarding noted. EXTREMITIES: Negative for clubbing, cyanosis, or edema. Last 24 Hour Vital Signs Date Time Temp Pulse Resp B/P (MAP) Pulse Ox O2 Delivery O2 Flow Rate FiO2 12/21/19 12:00 98.1 77 19 100/60 (73) 96 12/21/19 09:00 Room Air 12/21/19 08:00 98.1 67 19 98/60 (73) 96 12/21/19 04:00 97.6 81 17 107/70 (82) 95 12/21/19 00:00 99.1 79 18 114/65 (81) 94 12/20/19 21:00 Room Air 12/20/19 20:00 99.7 85 17 110/68 (82) 99 12/20/19 16:00 97.9 77 18 100/65 (77) 98 Intake and Output 12/20/19 12/21/19 19:00 07:00 Intake Total 710 ml 220 ml Output Total 1000 ml Balance 710 ml -780 ml Intake Oral 600 ml IV Total 110 ml 220 ml Output Urine Total 1000 ml # Bowel Movements 1 Laboratory Tests Test 12/21/19 06:20 White Blood Count 12.5 K/UL (4.8-10.8) H Red Blood Count 3.38 M/UL (4.70-6.10) L Hemoglobin 12.6 G/DL (14.2-18.0) L Hematocrit 32.7 % (42.0-52.0) L Mean Corpuscular Volume 97 FL (80-99) Mean Corpuscular Hemoglobin 37.3 PG (27.0-31.0) H Mean Corpuscular Hemoglobin Concent 38.6 G/DL (32.0-36.0) H Red Cell Distribution Width 18.6 % (11.6-14.8) H Platelet Count 395 K/UL (150-450) Mean Platelet Volume 5.3 FL (6.5-10.1) L Neutrophils (%) (Auto) 73.3 % (45.0-75.0) Lymphocytes (%) (Auto) 12.9 % (20.0-45.0) L Monocytes (%) (Auto) 11.3 % (1.0-10.0) H Eosinophils (%) (Auto) 1.5 % (0.0-3.0) Basophils (%) (Auto) 1.0 % (0.0-2.0) Erythrocyte Sedimentation Rate 19 MM/HR (0-20) Prothrombin Time 11.8 SEC (9.30-11.50) H Prothromb Time International Ratio 1.1 (0.9-1.1) Activated Partial Thromboplast Time 30 SEC (23-33) Sodium Level 135 MMOL/L (136-145) L Potassium Level 4.3 MMOL/L (3.5-5.1) Chloride Level 102 MMOL/L (98-107) Carbon Dioxide Level 30 MMOL/L (21-32) Anion Gap 3 mmol/L (5-15) L Blood Urea Nitrogen 16 mg/dL (7-18) Creatinine 1.3 MG/DL (0.55-1.30) Estimat Glomerular Filtration Rate 56.3 mL/min (>60) Glucose Level 94 MG/DL (74-106) Calcium Level 11.9 MG/DL (8.5-10.1) H C-Reactive Protein, Quantitative 32.4 mg/dL (0.00-0.90) H Prealbumin Pending Height (Feet): 5 Height (Inches): 6.00 Weight (Pounds): 132 Medications Current Medications Medications (Trade) Dose Ordered Sig/Virginie Route PRN Reason Start Time Stop Time Status Last Admin Dose Admin Acetaminophen (Tylenol) 650 mg Q4H PRN ORAL fever 12/19/19 19:00 01/18/20 18:59 Acetaminophen/ Hydrocodone Bitart ([place] 10/325) 1 tab Q4H PRN ORAL Moderate Pain (Pain Scale 4-6) 12/19/19 21:00 12/26/19 20:59 Acetaminophen/ Hydrocodone Bitart ([place] 10/325) 2 tab Q4H PRN ORAL Severe Pain (Pain Scale 7-10) 12/19/19 21:00 12/26/19 20:59 12/21/19 10:03 Albuterol/ Ipratropium (Albuterol/ Ipratropium) 3 ml Q4H PRN HHN Shortness of Breath 12/19/19 19:00 12/24/19 18:59 Cefepime HCl 2 gm/ Dextrose 110 ml @ 220 mls/hr EVERY 12 HOURS IV 12/19/19 21:00 12/26/19 20:59 12/21/19 08:25 Dextrose (Dextrose 50%) 25 ml Q30M PRN IV Hypoglycemia 12/19/19 19:00 03/18/20 18:59 Dextrose (Dextrose 50%) 50 ml Q30M PRN IV Hypoglycemia 12/19/19 19:00 03/18/20 18:59 Heparin Sodium (Porcine) (Heparin 5000 units/ml) 5,000 units EVERY 12 HOURS SUBQ 12/19/19 21:00 02/02/20 20:59 12/21/19 08:25 Ondansetron HCl (Zofran) 4 mg Q6H PRN IVP Nausea & Vomiting 12/19/19 19:00 01/18/20 18:59 Polyethylene Glycol (Miralax) 17 gm DAILYPRN PRN ORAL Constipation 12/19/19 19:00 01/18/20 18:59 Temazepam (Restoril) 15 mg HSPRN PRN ORAL Insomnia 12/19/19 19:00 12/26/19 18:59 12/19/19 21:50 [facility] 1 ea DAILY PRN MISC Per rx protocol 12/20/19 17:30 01/19/20 17:29 Vancomycin HCl 1 gm/Sodium Chloride 275 ml @ 183.299 mls/hr Q24H IVPB 12/20/19 16:00 12/25/19 15:59 12/20/19 15:45 Assessment/Plan Assessment/Plan: Abx: IV Vancomcyin 12/18- Cefepime 12/18- Meropenem x1 12/18 Assessment: UTI -u/a wbc 40/6-, nit +, leuk +2; ucx >100k GNR Penile necrotic wound infection Afebrile Leukocytosis, improving urethral CA dx'ed 2018 sp chemotherapy x 12 sessions and radiation x8 sessions and surgical intervention (follows at [facility]) hx of penile abscess HIV on Symtuza (dx'ed 20 yrs ago) former smoker (quit 8yrs ago) recurrent UTI on bactrim ppx urinary retention sp chronic suprapubic tube SNF resident ([facility]) Plan: -Continue empiric IV Vancomycin and Cefepime #3 for now -add flagyl for anaerobic coverage -f/u cx -Monitor CBC/CMP, temperatures -wound cx -Uro and Gen sx f/u -wound care per surgical team Thank you for consulting [facility]. Will continue to follow along with you. Discussed with Margoth Lamb M.D. Dec 21, 2019 14:12
--- NOTE | 2019-12-21 15:38 | NUR ---
CASE MANAGEMENT:INITIAL REVIEW 12/20/19 59 YR OLD MALE BIBA FROM [facility] CC;ABNORMAL LABS SI;PENILE ABSCESS. URETHRAL CANCER. 98.4 99 19 95/57 93% ON RA WBC 16.8 NA 132 BUN 22 CR 1.4 BG 132 CA 12.3 ALB 2.6 PT 12.0 UA+ PROTEIN, BLOOD, NITRITE, LEUKOCYTE ESTERASE, RBC, WBC, BACTERIA URINE CX (+) GRAM NEGATIVE PARISH IS;IVF NS BOLUS VANCOMYCIN IV MEROPENEM IV ADMITTED TO MED SURG MED SURG STATUS DCP;FROM [facility] CASE MANAGEMENT:REVIEW 12/21/19 SI;PENILE WOUND INFECTION. 99.7 86 19 94% ON RA WBC 12.5 RBC 3.38 IS;NORCO PO Q4 PRN CEFEPIME IV Q12 HEPARIN SUBQ Q12 VANCOMYCIN IV Q24 MED SURG STATUS DCP;FROM [facility]
[2019-12-21] MEDS: Vancomycin 1 GM in NS 275 ML IVPB SCH (15:54)
[2019-12-21 16:00] VITALS: BP 104/63
[2019-12-21] MEDS: metroNIDAZOLE 500mg tab ORAL SCH ×2 (16:42→20:02)
--- NOTE | 2019-12-21 17:13 | Surgery Progress Note ---
Surgery Progress Note Subjective Additional Comments no acute events labs noted no n/v feels okay heme input noted Objective Last 24 Hour Vital Signs Date Time Temp Pulse Resp B/P (MAP) Pulse Ox O2 Delivery O2 Flow Rate FiO2 12/21/19 16:00 97.3 66 19 104/63 (77) 96 12/21/19 12:00 98.1 77 19 100/60 (73) 96 12/21/19 09:00 Room Air 12/21/19 08:00 98.1 67 19 98/60 (73) 96 12/21/19 04:00 97.6 81 17 107/70 (82) 95 12/21/19 00:00 99.1 79 18 114/65 (81) 94 12/20/19 21:00 Room Air 12/20/19 20:00 99.7 85 17 110/68 (82) 99 I&O Intake and Output 12/20/19 12/21/19 19:00 07:00 Intake Total 710 ml 220 ml Output Total 1000 ml Balance 710 ml -780 ml Intake Oral 600 ml IV Total 110 ml 220 ml Output Urine Total 1000 ml # Bowel Movements 1 Dressing: saturated Cardiovascular: RSR Respiratory: decreased breath sounds Abdomen: soft, non-tender, present bowel sounds Extremities: no tenderness, no cyanosis Laboratory Tests Test 12/21/19 06:20 White Blood Count 12.5 K/UL (4.8-10.8) H Red Blood Count 3.38 M/UL (4.70-6.10) L Hemoglobin 12.6 G/DL (14.2-18.0) L Hematocrit 32.7 % (42.0-52.0) L Mean Corpuscular Volume 97 FL (80-99) Mean Corpuscular Hemoglobin 37.3 PG (27.0-31.0) H Mean Corpuscular Hemoglobin Concent 38.6 G/DL (32.0-36.0) H Red Cell Distribution Width 18.6 % (11.6-14.8) H Platelet Count 395 K/UL (150-450) Mean Platelet Volume 5.3 FL (6.5-10.1) L Neutrophils (%) (Auto) 73.3 % (45.0-75.0) Lymphocytes (%) (Auto) 12.9 % (20.0-45.0) L Monocytes (%) (Auto) 11.3 % (1.0-10.0) H Eosinophils (%) (Auto) 1.5 % (0.0-3.0) Basophils (%) (Auto) 1.0 % (0.0-2.0) Erythrocyte Sedimentation Rate 19 MM/HR (0-20) Prothrombin Time 11.8 SEC (9.30-11.50) H Prothromb Time International Ratio 1.1 (0.9-1.1) Activated Partial Thromboplast Time 30 SEC (23-33) Sodium Level 135 MMOL/L (136-145) L Potassium Level 4.3 MMOL/L (3.5-5.1) Chloride Level 102 MMOL/L (98-107) Carbon Dioxide Level 30 MMOL/L (21-32) Anion Gap 3 mmol/L (5-15) L Blood Urea Nitrogen 16 mg/dL (7-18) Creatinine 1.3 MG/DL (0.55-1.30) Estimat Glomerular Filtration Rate 56.3 mL/min (>60) Glucose Level 94 MG/DL (74-106) Calcium Level 11.9 MG/DL (8.5-10.1) H C-Reactive Protein, Quantitative 32.4 mg/dL (0.00-0.90) H Prealbumin Pending Plan Problems: (1) Penile abscess Assessment & Plan: 61-year-old male with known urethral cancer status post c hemoradiation presented with worsening wound necrosis and potential infection of the site. Patient seen prior penis necrosis falling off now remaining soft tissue in the malignancy region also with necrotic nonviable tissue identified. Drainage is serosanguineous at times sometimes serious and does not seem significant purulent. The cellulitis is minimal. Patient's labs noted. Given patient's history condition immunocompromise status recommend IV antibiotics. I discussed the patient and considerations for debriding some of the nonviable tissue though this will not in any way improve his cancer stated could help with local wound care. Patient expressed understanding we will continue to follow with local care and provide as necessary. No drainage of abscess identified at this time we will monitor thank you f/u with primary onc as per heme labs noted on rx (2) Urethral cancer (3) Abscess (4) Sepsis (5) Catheter-associated urinary tract infection Romain Li Dec 21, 2019 17:13
[2019-12-21] MEDS: SYMTUZA ORAL SCH (17:24)
--- NOTE | 2019-12-21 19:12 | Internal Med Progress Note ---
Subjective Date of Service: Dec 21, 2019 Physician Name TahminaJavier Attending Physician Ron Enriquez MD Current Medications Medications (Trade) Dose Ordered Sig/Virginie Route PRN Reason Start Time Stop Time Status Last Admin Dose Admin Acetaminophen (Tylenol) 650 mg Q4H PRN ORAL fever 12/19/19 19:00 01/18/20 18:59 Acetaminophen/ Hydrocodone Bitart ([place] 10/325) 1 tab Q4H PRN ORAL Moderate Pain (Pain Scale 4-6) 12/19/19 21:00 12/26/19 20:59 Acetaminophen/ Hydrocodone Bitart ([place] 10/325) 2 tab Q4H PRN ORAL Severe Pain (Pain Scale 7-10) 12/19/19 21:00 12/26/19 20:59 12/21/19 15:53 Albuterol/ Ipratropium (Albuterol/ Ipratropium) 3 ml Q4H PRN HHN Shortness of Breath 12/19/19 19:00 12/24/19 18:59 Cefepime HCl 2 gm/ Dextrose 110 ml @ 220 mls/hr EVERY 12 HOURS IV 12/19/19 21:00 12/26/19 20:59 12/21/19 08:25 Dextrose (Dextrose 50%) 25 ml Q30M PRN IV Hypoglycemia 12/19/19 19:00 03/18/20 18:59 Dextrose (Dextrose 50%) 50 ml Q30M PRN IV Hypoglycemia 12/19/19 19:00 03/18/20 18:59 Heparin Sodium (Porcine) (Heparin 5000 units/ml) 5,000 units EVERY 12 HOURS SUBQ 12/19/19 21:00 02/02/20 20:59 12/21/19 08:25 Metronidazole (Flagyl) 500 mg Q8HR ORAL 12/21/19 16:33 12/28/19 16:32 12/21/19 16:42 Ondansetron HCl (Zofran) 4 mg Q6H PRN IVP Nausea & Vomiting 12/19/19 19:00 01/18/20 18:59 Patient Own Medication (Patient's Own Med) 1 ea DAILY ORAL 12/21/19 18:00 01/20/20 17:59 12/21/19 17:24 Polyethylene Glycol (Miralax) 17 gm DAILYPRN PRN ORAL Constipation 12/19/19 19:00 01/18/20 18:59 Temazepam (Restoril) 15 mg HSPRN PRN ORAL Insomnia 12/19/19 19:00 12/26/19 18:59 12/19/19 21:50 Vancomycin HCl (Vanco pharmacy to dose) 1 ea DAILY PRN MISC Per rx protocol 12/20/19 17:30 01/19/20 17:29 Vancomycin HCl 1 gm/Sodium Chloride 275 ml @ 183.299 mls/hr Q24H IVPB 12/20/19 16:00 12/25/19 15:59 12/21/19 15:54 Allergies: Coded Allergies: CODEINE (Verified Allergy, Unknown, 02/05/10) ROS Limited/Unobtainable: No Constitutional: Reports: no symptoms HEENT: Reports: no symptoms Cardiovascular: Reports: no symptoms Respiratory: Reports: no symptoms Gastrointestinal/Abdominal: Reports: no symptoms Genitourinary: Reports: no symptoms Neurologic/Psychiatric: Reports: no symptoms Subjective 59 YO M with H/O urethral cancer admitted with Penile abscess and UTI. Cover for Int Med-Dr Enriquez Objective Last Vital Signs Date Time Temp Pulse Resp B/P (MAP) Pulse Ox O2 Delivery O2 Flow Rate FiO2 12/21/19 16:00 97.3 66 19 104/63 (77) 96 12/21/19 09:00 Room Air 12/19/19 16:21 5.0 28 Laboratory Tests Test 12/21/19 06:20 White Blood Count 12.5 K/UL (4.8-10.8) H Red Blood Count 3.38 M/UL (4.70-6.10) L Hemoglobin 12.6 G/DL (14.2-18.0) L Hematocrit 32.7 % (42.0-52.0) L Mean Corpuscular Volume 97 FL (80-99) Mean Corpuscular Hemoglobin 37.3 PG (27.0-31.0) H Mean Corpuscular Hemoglobin Concent 38.6 G/DL (32.0-36.0) H Red Cell Distribution Width 18.6 % (11.6-14.8) H Platelet Count 395 K/UL (150-450) Mean Platelet Volume 5.3 FL (6.5-10.1) L Neutrophils (%) (Auto) 73.3 % (45.0-75.0) Lymphocytes (%) (Auto) 12.9 % (20.0-45.0) L Monocytes (%) (Auto) 11.3 % (1.0-10.0) H Eosinophils (%) (Auto) 1.5 % (0.0-3.0) Basophils (%) (Auto) 1.0 % (0.0-2.0) Erythrocyte Sedimentation Rate 19 MM/HR (0-20) Prothrombin Time 11.8 SEC (9.30-11.50) H Prothromb Time International Ratio 1.1 (0.9-1.1) Activated Partial Thromboplast Time 30 SEC (23-33) Sodium Level 135 MMOL/L (136-145) L Potassium Level 4.3 MMOL/L (3.5-5.1) Chloride Level 102 MMOL/L (98-107) Carbon Dioxide Level 30 MMOL/L (21-32) Anion Gap 3 mmol/L (5-15) L Blood Urea Nitrogen 16 mg/dL (7-18) Creatinine 1.3 MG/DL (0.55-1.30) Estimat Glomerular Filtration Rate 56.3 mL/min (>60) Glucose Level 94 MG/DL (74-106) Calcium Level 11.9 MG/DL (8.5-10.1) H C-Reactive Protein, Quantitative 32.4 mg/dL (0.00-0.90) H Prealbumin Pending Microbiology Date/Time Source Procedure Growth Status 12/20/19 10:20 Rectal Mucosa Received 12/19/19 16:25 Urine,Clean Catch Urine Culture - Preliminary Gram Negative Atilio Resulted Intake and Output 12/20/19 12/21/19 19:00 07:00 Intake Total 710 ml 220 ml Output Total 1000 ml Balance 710 ml -780 ml Intake Oral 600 ml IV Total 110 ml 220 ml Output Urine Total 1000 ml # Bowel Movements 1 Objective PHYSICAL EXAMINATION: GENERAL: The patient is a well-developed and well-nourished male, in no apparent distress. HEENT: Eyes, pupils equal and responsive to light and accommodation. Extraocular movements are intact. NECK: Supple without lymphadenopathy. CHEST: Lungs are clear to auscultation bilaterally without wheezes or rales. CARDIOVASCULAR: Regular rate. S1, S2 are normal without murmurs, rubs, or gallops. ABDOMEN: Soft, nontender, and nondistended. Positive bowel sounds. No evidence of hepatosplenomegaly. Currently, no rebound or guarding noted. EXTREMITIES: Negative for clubbing, cyanosis, or edema. RECTAL AND GENITAL: There is a large fungating mass over the penile and scrotal region. There is foul odor. NEUROLOGICAL: Cranial nerves II through XII are grossly intact without focal deficits. Motor strength is 5/5 bilaterally intact. Deep tendon reflexes are 2+, plantar. Assessment/Plan Assessment/Plan ASSESSMENT: This is a 59-year-old male with: 1. Urinary tract infection. 2. Penile abscess. 3. HIV. 4. Urethral cancer. TREATMENT: 1. Urinary tract infection/penile abscess. A urine culture is pending. The patient has been started empirically on vancomycin and cefepime. An Infectious Disease consultation has been obtained with Dr. Rider. The patient was recently hospitalized and is currently on Bactrim prophylaxis. Await urine culture results. Await Infectious Disease consultation. 2. HIV. Continue Symtuza as above. 3. Penile/urethral cancer. An Oncology consultation has been obtained with Dr. Horta. A Urology consultation has been obtained with Dr. Chas Larsen. Follow recommendations of Urology and Oncology. Javier Martel MD Dec 21, 2019 19:11
--- NOTE | 2019-12-21 19:22 | NUR ---
NURSE HAND-OFF: Important Events on Shift: dressing change, HIV med continued Patient Status: stable Diet: regular Pending Orders: n/a Pending Results/Labs:Wound culture Pending MD notification:n/a Latest Vital Signs: Temperature 97.3 , Pulse 66 , B/P 104 /63 , Respiratory Rate 19 , O2 SAT 96 , Room Air, O2 Flow Rate 5.0 . Vital Sign Comment: stable Latest Rahman Fall Score: 35 Fall Risk: Medium Risk Safety Measures: Call light Within Reach, Bed Alarm Zone 1, Side Rails Side Rails x2, Bed position Low and Locked. Fall Precautions: Yellow Socks Patient Fall Education Report given to MADAN Hancock.
[2019-12-21 20:00] VITALS: BP 128/74
--- NOTE | 2019-12-21 20:00 | NUR ---
NURSE NOTES: Received patient awake, alert, verbal, complained of pain, subsequently given prn medication for pain.
[2019-12-22 04:16] VITALS: BP 111/69
[2019-12-22] MEDS: metroNIDAZOLE 500mg tab ORAL SCH ×2 (04:24→13:45)
[2019-12-22] MEDS: HYDROcodone/Acetamin 10/325 tab ORAL PRN ×4 (04:25→20:54)
[2019-12-22 06:43] LABS: BASOPHILS % (AUTO) 0.9 % (0.0-2.0); EOSINOPHILS % (AUTO) 1.6 % (0.0-3.0); HEMATOCRIT 33.5 % (42.0-52.0); HEMOGLOBIN 12.3 G/DL (14.2-18.0); LYMPHOCYTES % (AUTO) 10.4 % (20.0-45.0); MEAN CORPUSCULAR VOLUME 97 FL (80-99); MONOCYTES % (AUTO) 9.1 % (1.0-10.0); NEUTROPHILS % (AUTO) 78.1 % (45.0-75.0); PLATELET COUNT 414 K/UL (150-450); RED BLOOD COUNT 3.44 M/UL (4.70-6.10); RED CELL DISTRIBUTION WIDTH 18.9 % (11.6-14.8)
--- NOTE | 2019-12-22 06:57 | Hematology/Onc Progress Note ---
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 Leonard at [facility], per patient is his med onc --> labs have been reviewed, hold off on tumor markers --> has been seen by Dr. Larsen here and recs noted # Leukocytosis likely due to Penile abscess --> requires abx as per id vanc/flagyl/cefepime --> wbc 13-->14 # Urinary retention with chronic suprapubic tube. --> per uro, surg care # Probable neurogenic bladder. # Urinary tract infection and colonization. # Hematuria. --> improved # Dvt ppx --> hep sq Appreciate consultation and dw RN Subjective Constitutional: Denies: no symptoms, chills, fever, malaise, weakness, other HEENT: Denies: no symptoms, eye pain, blurred vision, tearing, double vision, ear pain, ear discharge, nose pain, nose congestion, throat pain, throat swelling, mouth pain, mouth swelling, other Cardiovascular: Denies: no symptoms, chest pain, edema, irregular heart rate, lightheadedness, palpitations, syncope, other Respiratory: Denies: no symptoms, cough, shortness of breath, SOB with excertion, SOB at rest, sputum, wheezing, other Gastrointestinal/Abdominal: Denies: no symptoms, abdomen distended, abdominal pain, black stools, tarry stools, blood in stool, constipated, diarrhea, difficulty swallowing, nausea, poor appetite, poor fluid intake, rectal bleeding, vomiting, other Endocrine: Denies: no symptoms, excessive sweating, flushing, intolerance to co ld, intolerance to heat, increased hunger, increased thirst, increased urine, unexplained weight gain, unexplained weight loss, other Hematologic/Lymphatic: Denies: no symptoms, anemia, easy bleeding, easy bruising, adenopathy, other Allergies: Coded Allergies: CODEINE (Verified Allergy, Unknown, 02/05/10) Subjective 12/21 is on abx vanc/flagyl, cefepime, on hep, suprapub catheter functional Objective Objective Current Medications Medications (Trade) Dose Ordered Sig/Virginie Route PRN Reason Start Time Stop Time Status Last Admin Dose Admin Acetaminophen (Tylenol) 650 mg Q4H PRN ORAL fever 12/19/19 19:00 01/18/20 18:59 Acetaminophen/ Hydrocodone Bitart ([place] 10/325) 1 tab Q4H PRN ORAL Moderate Pain (Pain Scale 4-6) 12/19/19 21:00 12/26/19 20:59 Acetaminophen/ Hydrocodone Bitart ([place] 10/325) 2 tab Q4H PRN ORAL Severe Pain (Pain Scale 7-10) 12/19/19 21:00 12/26/19 20:59 12/22/19 04:25 Albuterol/ Ipratropium (Albuterol/ Ipratropium) 3 ml Q4H PRN HHN Shortness of Breath 12/19/19 19:00 12/24/19 18:59 Cefepime HCl 2 gm/ Dextrose 110 ml @ 220 mls/hr EVERY 12 HOURS IV 12/19/19 21:00 12/26/19 20:59 12/21/19 20:02 Dextrose (Dextrose 50%) 25 ml Q30M PRN IV Hypoglycemia 12/19/19 19:00 03/18/20 18:59 Dextrose (Dextrose 50%) 50 ml Q30M PRN IV Hypoglycemia 12/19/19 19:00 03/18/20 18:59 Heparin Sodium (Porcine) (Heparin 5000 units/ml) 5,000 units EVERY 12 HOURS SUBQ 12/19/19 21:00 02/02/20 20:59 12/21/19 20:03 Metronidazole (Flagyl) 500 mg Q8HR ORAL 12/21/19 16:33 12/28/19 16:32 12/22/19 04:24 Ondansetron HCl (Zofran) 4 mg Q6H PRN IVP Nausea & Vomiting 12/19/19 19:00 01/18/20 18:59 Patient Own Medication (Patient's Own Med) 1 ea DAILY ORAL 12/21/19 18:00 01/20/20 17:59 12/21/19 17:24 Polyethylene Glycol (Miralax) 17 gm DAILYPRN PRN ORAL Constipation 12/19/19 19:00 01/18/20 18:59 Temazepam (Restoril) 15 mg HSPRN PRN ORAL Insomnia 12/19/19 19:00 12/26/19 18:59 12/21/19 20:41 Vancomycin HCl (Vanco pharmacy to dose) 1 ea DAILY PRN MISC Per rx protocol 12/20/19 17:30 01/19/20 17:29 Vancomycin HCl 1 gm/Sodium Chloride 275 ml @ 183.299 mls/hr Q24H IVPB 12/20/19 16:00 12/25/19 15:59 12/21/19 15:54 Last 24 Hour Vital Signs Date Time Temp Pulse Resp B/P (MAP) Pulse Ox O2 Delivery O2 Flow Rate FiO2 12/22/19 04:55 97.7 12/22/19 04:16 97.7 92 18 111/69 (83) 93 12/21/19 21:11 97.3 12/21/19 21:00 Room Air 12/21/19 20:00 97.8 82 18 128/74 (92) 96 12/21/19 16:00 97.3 66 19 104/63 (77) 96 12/21/19 12:00 98.1 77 19 100/60 (73) 96 12/21/19 09:00 Room Air 12/21/19 08:00 98.1 67 19 98/60 (73) 96 12/21/19 04:00 97.6 81 17 107/70 (82) 95 12/21/19 00:00 99.1 79 18 114/65 (81) 94 12/20/19 21:00 Room Air 12/20/19 20:00 99.7 85 17 110/68 (82) 99 12/20/19 16:00 97.9 77 18 100/65 (77) 98 12/20/19 12:00 97.8 83 18 103/68 (80) 98 12/20/19 09:00 Room Air 12/20/19 08:00 97.6 86 18 105/60 (75) 96 Intake and Output 12/21/19 12/22/19 19:00 07:00 Intake Total 240 ml 570 ml Output Total 900 ml Balance 240 ml -330 ml Intake Oral 240 ml 460 ml IV Total 110 ml Output Urine Total 900 ml Labs Test 12/19/19 16:25 12/20/19 05:55 12/21/19 06:20 12/22/19 06:10 White Blood Count 16.8 K/UL (4.8-10.8) 13.8 K/UL (4.8-10.8) 12.5 K/UL (4.8-10.8) 14.0 K/UL (4.8-10.8) Red Blood Count 4.43 M/UL (4.70-6.10) 3.69 M/UL (4.70-6.10) 3.38 M/UL (4.70-6.10) 3.44 M/UL (4.70-6.10) Hemoglobin 13.2 G/DL (14.2-18.0) 13.1 G/DL (14.2-18.0) 12.6 G/DL (14.2-18.0) 12.3 G/DL (14.2-18.0) Hematocrit 40.7 % (42.0-52.0) 36.0 % (42.0-52.0) 32.7 % (42.0-52.0) 33.5 % (42.0-52.0) Mean Corpuscular Volume 92 FL (80-99) 98 FL (80-99) 97 FL (80-99) 97 FL (80- 99) Mean Corpuscular Hemoglobin 29.9 PG (27.0-31.0) 35.6 PG (27.0-31.0) 37.3 PG (27.0-31.0) 35.9 PG (27.0-31.0) Mean Corpuscular Hemoglobin Concent 32.5 G/DL (32.0-36.0) 36.5 G/DL (32.0-36.0) 38.6 G/DL (32.0-36.0) 36.9 G/DL (32.0-36.0) Red Cell Distribution Width 15.7 % (11.6-14.8) 19.0 % (11.6-14.8) 18.6 % (11.6-14.8) 18.9 % (11.6-14.8) Platelet Count 336 K/UL (150-450) 437 K/UL (150-450) 395 K/UL (150-450) 414 K/UL (150-450) Mean Platelet Volume 7.5 FL (6.5-10.1) 5.1 FL (6.5-10.1) 5.3 FL (6.5-10.1) 5.6 FL (6.5-10.1) Neutrophils (%) (Auto) 79.5 % (45.0-75.0) 77.0 % (45.0-75.0) 73.3 % (45.0-75.0) 78.1 % (45.0-75.0) Lymphocytes (%) (Auto) 10.5 % (20.0-45.0) 10.3 % (20.0-45.0) 12.9 % (20.0-45.0) 10.4 % (20.0-45.0) Monocytes (%) (Auto) 8.3 % (1.0-10.0) 11.0 % (1.0-10.0) 11.3 % (1.0-10.0) 9.1 % (1.0-10.0) Eosinophils (%) (Auto) 0.6 % (0.0-3.0) 1.2 % (0.0-3.0) 1.5 % (0.0-3.0) 1.6 % (0.0-3.0) Basophils (%) (Auto) 1.0 % (0.0-2.0) 0.5 % (0.0-2.0) 1.0 % (0.0-2.0) 0.9 % (0.0-2.0) Prothrombin Time 12.0 SEC (9.30-11.50) 11.8 SEC (9.30-11.50) Prothromb Time International Ratio 1.1 (0.9-1.1) 1.1 (0.9-1.1) Activated Partial Thromboplast Time 28 SEC (23-33) 30 SEC (23-33) Urine Color Fany Urine Appearance Cloudy Urine pH 6.0 (4.5-8.0) Urine Specific [place] 1.020 (1.005-1.035) Urine Protein 1+ (NEGATIVE) Urine Glucose (UA) Negative (NEGATIVE) Urine Ketones Negative (NEGATIVE) Urine Blood 3+ (NEGATIVE) Urine Nitrite Positive (NEGATIVE) Urine Bilirubin Negative (NEGATIVE) Urine Ictotest Negative (NEGATIVE) Urine Urobilinogen Normal MG/DL (0.0-1.0) Urine Leukocyte Esterase 2+ (NEGATIVE) Urine RBC 5-10 /HPF (0 - 0) Urine WBC 40-60 /HPF (0 - 0) Urine Squamous Epithelial Cells Few /LPF (NONE/OCC) Urine Bacteria Many /HPF (NONE) Sodium Level 132 MMOL/L (136-145) 136 MMOL/L (136-145) 135 MMOL/L (136-145) Potassium Level 4.0 MMOL/L (3.5-5.1) 4.0 MMOL/L (3.5-5.1) 4.3 MMOL/L (3.5-5.1) Chloride Level 98 MMOL/L (98-107) 101 MMOL/L (98-107) 102 MMOL/L (98-107) Carbon Dioxide Level 27 MMOL/L (21-32) 30 MMOL/L (21-32) 30 MMOL/L (21-32) Anion Gap 7 mmol/L (5-15) 5 mmol/L (5-15) 3 mmol/L (5-15) Blood Urea Nitrogen 22 mg/dL (7-18) 20 mg/dL (7-18) 16 mg/dL (7-18) Creatinine 1.4 MG/DL (0.55-1.30) 1.4 MG/DL (0.55-1.30) 1.3 MG/DL (0.55-1.30) Estimat Glomerular Filtration Rate 51.7 mL/min (>60) 51.7 mL/min (>60) 56.3 mL/min (>60) Glucose Level 132 MG/DL (74-106) 86 MG/DL (74-106) 94 MG/DL (74-106) Lactic Acid Level 1.00 mmol/L (0.4-2.0) Calcium Level 12.3 MG/DL (8.5-10.1) 12.7 MG/DL (8.5-10.1) 11.9 MG/DL (8.5-10.1) Total Bilirubin 0.3 MG/DL (0.2-1.0) 0.3 MG/DL (0.2-1.0) Aspartate Amino Transf (AST/SGOT) 20 U/L (15-37) 17 U/L (15-37) Alanine Aminotransferase (ALT/SGPT) 15 U/L (12-78) 8 U/L (12-78) Alkaline Phosphatase 92 U/L (46-116) 84 U/L (46-116) Total Protein 8.3 G/DL (6.4-8.2) 8.0 G/DL (6.4-8.2) Albumin 2.6 G/DL (3.4-5.0) 2.4 G/DL (3.4-5.0) Globulin 5.7 g/dL 5.6 g/dL Albumin/Globulin Ratio 0.5 (1.0-2.7) 0.4 (1.0-2.7) Erythrocyte Sedimentation Rate 19 MM/HR (0-20) C-Reactive Protein, Quantitative 32.4 mg/dL (0.00-0.90) Height (Feet): 5 Height (Inches): 6.00 Weight (Pounds): 132 Objective Physical Exam Sp02 EP Interpretation: reviewed, normal General: no apparent distress, Chronically Ill Heent: normocephalic, atraumatic Respiratory: lungs clear, normal breath sounds Cardiovascular: normal peripheral pulses, regular rate Gastrointestinal: non tender, soft, non-distended, no guarding Genitourinary: other - Large area of necrosis noted in the genital region with purulent discharge, ++suprapub catheter Neurologic: alert, oriented x3 Skin: normal color, warm/dry Mandeep Horta MD Dec 22, 2019 06:57
[2019-12-22 06:58] LABS: ANION GAP 6 mmol/L (5-15); BLOOD UREA NITROGEN 14 mg/dL (7-18); CALCIUM 12.7 MG/DL (8.5-10.1); CARBON DIOXIDE 28 MMOL/L (21-32); CHLORIDE 102 MMOL/L (98-107); POTASSIUM 3.8 MMOL/L (3.5-5.1); SODIUM 136 MMOL/L (136-145)
--- NOTE | 2019-12-22 07:03 | NUR ---
HAND-OFF: Report given to Praveen Rutledge RN.
--- NOTE | 2019-12-22 07:42 | NUR ---
NURSE NOTES: received report MADAN Kelly. patient in bed. A&Ox4, verbally responsive. no respiratory distress noted on room air. mild discomfort on penile area. supra pubic cath in place. IV on LAC saline lock intact. flushed. contact isolation for ESBL urine. PPE at all times. bed bound. active BM sound. peripheral pulse present. bed in the lowest position and locked. call light within reach. will continue to provide plan of care.
[2019-12-22 08:00] VITALS: BP 101/60
[2019-12-22] MEDS: SYMTUZA ORAL SCH (08:50)
[2019-12-22] MEDS: Heparin 5000 units/ml inj SUBQ SCH ×2 (08:52→20:52)
--- NOTE | 2019-12-22 08:52 | Urology Progress Note ---
Assessment/Plan Assessment/Plan: 1. History of urethral cancer, status post chemo and immunotherapy and radiation with previous debridement. 2. Urinary retention and a chronic suprapubic tube. 3. Probable neurogenic bladder. 4. UTI and colonization. 5. Hematuria. 6. Proteinuria. 7. Mild acute kidney injury. monitor clinically maintain SPT hand irrigated and do PRN abx as ordered f/u on urine cx local wound care debridement at some point Subjective Allergies: Coded Allergies: CODEINE (Verified Allergy, Unknown, 02/05/10) Subjective all noted, no new changes Objective Last 24 Hour Vital Signs Date Time Temp Pulse Resp B/P (MAP) Pulse Ox O2 Delivery O2 Flow Rate FiO2 12/22/19 04:55 97.7 12/22/19 04:16 97.7 92 18 111/69 (83) 93 12/21/19 21:11 97.3 12/21/19 21:00 Room Air 12/21/19 20:00 97.8 82 18 128/74 (92) 96 12/21/19 16:00 97.3 66 19 104/63 (77) 96 12/21/19 12:00 98.1 77 19 100/60 (73) 96 12/21/19 09:00 Room Air Intake and Output 12/21/19 12/22/19 19:00 07:00 Intake Total 240 ml 570 ml Output Total 900 ml Balance 240 ml -330 ml Intake Oral 240 ml 460 ml IV Total 110 ml Output Urine Total 900 ml Microbiology Date/Time Source Procedure Growth Status 12/20/19 10:20 Rectal Mucosa Received 12/19/19 16:25 Urine,Clean Catch Urine Culture - Final Enterobacter Cloacae Complex Complete Current Medications Medications (Trade) Dose Ordered Sig/Virginie Route PRN Reason Start Time Stop Time Status Last Admin Dose Admin Acetaminophen (Tylenol) 650 mg Q4H PRN ORAL fever 12/19/19 19:00 01/18/20 18:59 Acetaminophen/ Hydrocodone Bitart ([place] 10/325) 1 tab Q4H PRN ORAL Moderate Pain (Pain Scale 4-6) 12/19/19 21:00 12/26/19 20:59 Acetaminophen/ Hydrocodone Bitart ([place] 10/325) 2 tab Q4H PRN ORAL Severe Pain (Pain Scale 7-10) 12/19/19 21:00 12/26/19 20:59 12/22/19 04:25 Albuterol/ Ipratropium (Albuterol/ Ipratropium) 3 ml Q4H PRN HHN Shortness of Breath 12/19/19 19:00 12/24/19 18:59 Cefepime HCl 2 gm/ Dextrose 110 ml @ 220 mls/hr EVERY 12 HOURS IV 12/19/19 21:00 12/26/19 20:59 12/21/19 20:02 Dextrose (Dextrose 50%) 25 ml Q30M PRN IV Hypoglycemia 12/19/19 19:00 03/18/20 18:59 Dextrose (Dextrose 50%) 50 ml Q30M PRN IV Hypoglycemia 12/19/19 19:00 03/18/20 18:59 Heparin Sodium (Porcine) (Heparin 5000 units/ml) 5,000 units EVERY 12 HOURS SUBQ 12/19/19 21:00 02/02/20 20:59 12/21/19 20:03 Metronidazole (Flagyl) 500 mg Q8HR ORAL 12/21/19 16:33 12/28/19 16:32 12/22/19 04:24 Ondansetron HCl (Zofran) 4 mg Q6H PRN IVP Nausea & Vomiting 12/19/19 19:00 01/18/20 18:59 Patient Own Medication (Patient's Own Med) 1 ea DAILY ORAL 12/21/19 18:00 01/20/20 17:59 12/21/19 17:24 Polyethylene Glycol (Miralax) 17 gm DAILYPRN PRN ORAL Constipation 12/19/19 19:00 01/18/20 18:59 Temazepam (Restoril) 15 mg HSPRN PRN ORAL Insomnia 12/19/19 19:00 12/26/19 18:59 12/21/19 20:41 Vancomycin HCl (Vanco pharmacy to dose) 1 ea DAILY PRN MISC Per rx protocol 12/20/19 17:30 01/19/20 17:29 Vancomycin HCl 1 gm/Sodium Chloride 275 ml @ 183.299 mls/hr Q24H IVPB 12/20/19 16:00 12/25/19 15:59 12/21/19 15:54 Laboratory Tests 12/22/19 06:10: White Blood Count 14.0H, Red Blood Count 3.44L, Hemoglobin 12.3L, Hematocrit 33.5L, Mean Corpuscular Volume 97, Mean Corpuscular Hemoglobin 35.9H, Mean Corpuscular Hemoglobin Concent 36.9H, Red Cell Distribution Width 18.9H, Platelet Count 414, Mean Platelet Volume 5.6L, Neutrophils (%) (Auto) 78.1H, Lymphocytes (%) (Auto) 10.4L, Monocytes (%) (Auto) 9.1, Eosinophils (%) (Auto) 1.6, Basophils (%) (Auto) 0.9, Sodium Level 136, Potassium Level 3.8, Chloride Level 102, Carbon Dioxide Level 28, Anion Gap 6, Blood Urea Nitrogen 14, Creatinine 1.0, Estimat Glomerular Filtration Rate > 60, Glucose Level 103, Calcium Level 12.7H Height (Feet): 5 Height (Inches): 6.00 Weight (Pounds): 132 Objective exam stable Chas Larsen MD Dec 22, 2019 08:52
[2019-12-22] MEDS: Cefepime HCl 2 GM in D5W 110 ML IV SCH (08:53)
--- NOTE | 2019-12-22 09:25 | NUR ---
NURSE NOTES:Skin/Wound assessment All Bony prominences skin intact.Sacral and bilateral heels Optifoam applied.Dr. Li also at bedside during assessment to do debridement to penis /groin area.He stated" he would have to take patient to surgery for further debridement do to probable bleeding".
[2019-12-22] MEDS ORDERED: ACETAMINOPHEN325 M1 ORAL (09:47)
[2019-12-22 12:00] VITALS: BP 106/59
--- NOTE | 2019-12-22 12:24 | Surgery Progress Note ---
Surgery Progress Note Subjective Additional Comments wounds and slough/necrotic tissue debridement at bedside penis is fully necrotic and hanging off. will discuss consideration of operative debridement including penis. not recommended at bedside given likely bleeding with debridement. Objective Last 24 Hour Vital Signs Date Time Temp Pulse Resp B/P (MAP) Pulse Ox O2 Delivery O2 Flow Rate FiO2 12/22/19 04:55 97.7 12/22/19 04:16 97.7 92 18 111/69 (83) 93 12/21/19 21:11 97.3 12/21/19 21:00 Room Air 12/21/19 20:00 97.8 82 18 128/74 (92) 96 12/21/19 16:00 97.3 66 19 104/63 (77) 96 I&O Intake and Output 12/21/19 12/22/19 19:00 07:00 Intake Total 240 ml 570 ml Output Total 900 ml Balance 240 ml -330 ml Intake Oral 240 ml 460 ml IV Total 110 ml Output Urine Total 900 ml Dressing: saturated Cardiovascular: RSR Respiratory: decreased breath sounds Abdomen: non-tender, present bowel sounds Extremities: no tenderness, no cyanosis Laboratory Tests Test 12/22/19 06:10 White Blood Count 14.0 K/UL (4.8-10.8) H Red Blood Count 3.44 M/UL (4.70-6.10) L Hemoglobin 12.3 G/DL (14.2-18.0) L Hematocrit 33.5 % (42.0-52.0) L Mean Corpuscular Volume 97 FL (80-99) Mean Corpuscular Hemoglobin 35.9 PG (27.0-31.0) H Mean Corpuscular Hemoglobin Concent 36.9 G/DL (32.0-36.0) H Red Cell Distribution Width 18.9 % (11.6-14.8) H Platelet Count 414 K/UL (150-450) Mean Platelet Volume 5.6 FL (6.5-10.1) L Neutrophils (%) (Auto) 78.1 % (45.0-75.0) H Lymphocytes (%) (Auto) 10.4 % (20.0-45.0) L Monocytes (%) (Auto) 9.1 % (1.0-10.0) Eosinophils (%) (Auto) 1.6 % (0.0-3.0) Basophils (%) (Auto) 0.9 % (0.0-2.0) Sodium Level 136 MMOL/L (136-145) Potassium Level 3.8 MMOL/L (3.5-5.1) Chloride Level 102 MMOL/L (98-107) Carbon Dioxide Level 28 MMOL/L (21-32) Anion Gap 6 mmol/L (5-15) Blood Urea Nitrogen 14 mg/dL (7-18) Creatinine 1.0 MG/DL (0.55-1.30) Estimat Glomerular Filtration Rate > 60 mL/min (>60) Glucose Level 103 MG/DL (74-106) Calcium Level 12.7 MG/DL (8.5-10.1) H Plan Problems: (1) Penile abscess Assessment & Plan: 61-year-old male with known urethral cancer status post c hemoradiation presented with worsening wound necrosis and potential infection of the site. Patient seen prior penis necrosis falling off now remaining soft tissue in the malignancy region also with necrotic nonviable tissue identified. Drainage is serosanguineous at times sometimes serious and does not seem significant purulent. The cellulitis is minimal. Patient's labs noted. Given patient's history condition immunocompromise status recommend IV antibiotics. I discussed the patient and considerations for debriding some of the nonviable tissue though this will not in any way improve his cancer stated could help with local wound care. Patient expressed understanding we will continue to follow with local care and provide as necessary. No drainage of abscess identified at this time we will monitor thank you f/u with primary onc as per heme labs noted on rx wounds and slough/necrotic tissue debridement at bedside penis is fully necrotic and hanging off. will discuss consideration of operative debridement including penis. not recommended at bedside given likely bleeding with debridement. (2) Urethral cancer (3) Abscess (4) Sepsis (5) Catheter-associated urinary tract infection Romain Li Dec 22, 2019 12:24
--- NOTE | 2019-12-22 13:00 | Pulmonology Progress Note ---
Subjective ROS Limited/Unobtainable: No Constitutional: Reports: no symptoms HEENT: Repors: no symptoms Allergies: Coded Allergies: CODEINE (Verified Allergy, Unknown, 02/05/10) Objective Last 24 Hour Vital Signs Date Time Temp Pulse Resp B/P (MAP) Pulse Ox O2 Delivery O2 Flow Rate FiO2 12/22/19 04:55 97.7 12/22/19 04:16 97.7 92 18 111/69 (83) 93 12/21/19 21:11 97.3 12/21/19 21:00 Room Air 12/21/19 20:00 97.8 82 18 128/74 (92) 96 12/21/19 16:00 97.3 66 19 104/63 (77) 96 Intake and Output 12/21/19 12/22/19 19:00 07:00 Intake Total 240 ml 570 ml Output Total 900 ml Balance 240 ml -330 ml Intake Oral 240 ml 460 ml IV Total 110 ml Output Urine Total 900 ml General Appearance: cachetic HEENT: normocephalic, atraumatic Respiratory: chest wall non-tender, lungs clear Cardiovascular: normal peripheral pulses, normal rate, regular rhythm Abdomen: normal bowel sounds, soft, non tender Genitourinary: normal external genitalia Extremities: no cyanosis Skin: no rash 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 Complete 12/20/19 10:20 Rectal Mucosa VRE Culture - Final NO VANCOMYCIN RESISTANT ENTEROCOCCUS ... Complete 12/19/19 16:25 Urine,Clean Catch Urine Culture - Final Enterobacter Cloacae Complex Complete Laboratory Tests 12/22/19 06:10: White Blood Count 14.0H, Red Blood Count 3.44L, Hemoglobin 12.3L, Hematocrit 33.5L, Mean Corpuscular Volume 97, Mean Corpuscular Hemoglobin 35.9H, Mean Corpuscular Hemoglobin Concent 36.9H, Red Cell Distribution Width 18.9H, Platelet Count 414, Mean Platelet Volume 5.6L, Neutrophils (%) (Auto) 78.1H, Lymphocytes (%) (Auto) 10.4L, Monocytes (%) (Auto) 9.1, Eosinophils (%) (Auto) 1.6, Basophils (%) (Auto) 0.9, Sodium Level 136, Potassium Level 3.8, Chloride Level 102, Carbon Dioxide Level 28, Anion Gap 6, Blood Urea Nitrogen 14, Creatinine 1.0, Estimat Glomerular Filtration Rate > 60, Glucose Level 103, Calcium Level 12.7H Current Medications Medications (Trade) Dose Ordered Sig/Virginie Route PRN Reason Start Time Stop Time Status Last Admin Dose Admin Acetaminophen (Tylenol) 650 mg Q4H PRN ORAL fever 12/19/19 19:00 01/18/20 18:59 Acetaminophen/ Hydrocodone Bitart ([place] 10/325) 1 tab Q4H PRN ORAL Moderate Pain (Pain Scale 4-6) 12/19/19 21:00 12/26/19 20:59 Acetaminophen/ Hydrocodone Bitart ([place] 10/325) 2 tab Q4H PRN ORAL Severe Pain (Pain Scale 7-10) 12/19/19 21:00 12/26/19 20:59 12/22/19 08:50 Albuterol/ Ipratropium (Albuterol/ Ipratropium) 3 ml Q4H PRN HHN Shortness of Breath 12/19/19 19:00 12/24/19 18:59 Cefepime HCl 2 gm/ Dextrose 110 ml @ 220 mls/hr EVERY 12 HOURS IV 12/19/19 21:00 12/26/19 20:59 12/22/19 08:53 Dextrose (Dextrose 50%) 25 ml Q30M PRN IV Hypoglycemia 12/19/19 19:00 03/18/20 18:59 Dextrose (Dextrose 50%) 50 ml Q30M PRN IV Hypoglycemia 12/19/19 19:00 03/18/20 18:59 Heparin Sodium (Porcine) (Heparin 5000 units/ml) 5,000 units EVERY 12 HOURS SUBQ 12/19/19 21:00 02/02/20 20:59 12/21/19 20:03 Metronidazole (Flagyl) 500 mg Q8HR ORAL 12/21/19 16:33 12/28/19 16:32 12/22/19 04:24 Ondansetron HCl (Zofran) 4 mg Q6H PRN IVP Nausea & Vomiting 12/19/19 19:00 01/18/20 18:59 Patient Own Medication (Patient's Own Med) 1 ea DAILY ORAL 12/21/19 18:00 01/20/20 17:59 12/22/19 08:50 Polyethylene Glycol (Miralax) 17 gm DAILYPRN PRN ORAL Constipation 12/19/19 19:00 01/18/20 18:59 Temazepam (Restoril) 15 mg HSPRN PRN ORAL Insomnia 12/19/19 19:00 12/26/19 18:59 12/21/19 20:41 Vancomycin HCl (Vanco pharmacy to dose) 1 ea DAILY PRN MISC Per rx protocol 12/20/19 17:30 01/19/20 17:29 Vancomycin HCl 1 gm/Sodium Chloride 275 ml @ 183.299 mls/hr Q24H IVPB 12/20/19 16:00 12/25/19 15:59 12/21/19 15:54 Assessment/Plan Problems: (1) Penile abscess (2) Catheter-associated urinary tract infection (3) Sepsis Assessment/Plan Vancomycin and Cefepime #3, and Flagy. Urine has GNR continue abx ID evaluation appreciated symptomatic treatment dvt prophylaxis. Jasbir Larsen MD Dec 22, 2019 13:00
--- NOTE | 2019-12-22 13:47 | Infectious Diseases Prog Note ---
Assessment/Plan Assessment: UTI -u/a wbc 40/6-, nit +, leuk +2; ucx >100k ESBL e. clocae complex Penile necrotic wound infection -wound cx p Afebrile Leukocytosis, improving urethral CA dx'ed 2019 sp chemotherapy x 12 sessions and radiation x8 sessions and surgical intervention (follow[facility] at [facility]) hx of penile abscess HIV on Symtuza (dx'ed 20 yrs ago) former smoker (quit 8yrs ago) recurrent UTI on bactrim ppx urinary retention sp chronic suprapubic tube SNF resident ([facility]) Plan: -Continue empiric IV Vancomycin #4 -Switch Cefepime #4 and flagyl #2 to MEropenem for ESBL -12/18 SP Meropenem x1 -f/u cx -Monitor CBC/CMP, temperatures -wound cx -Uro and Gen sx f/u -wound care per surgical team Thank you for consulting [facility]. Will continue to follow along with you. Discussed with RN. Subjective Allergies: Coded Allergies: CODEINE (Verified Allergy, Unknown, 02/05/10) afebrile wbc increased Objective Last 24 Hour Vital Signs Date Time Temp Pulse Resp B/P (MAP) Pulse Ox O2 Delivery O2 Flow Rate FiO2 12/22/19 12:00 97.9 82 19 106/59 (75) 96 12/22/19 09:00 Room Air 12/22/19 08:00 97.7 87 19 101/60 (74) 95 12/22/19 04:55 97.7 12/22/19 04:16 97.7 92 18 111/69 (83) 93 12/21/19 21:11 97.3 12/21/19 21:00 Room Air 12/21/19 20:00 97.8 82 18 128/74 (92) 96 12/21/19 16:00 97.3 66 19 104/63 (77) 96 Height (Feet): 5 Height (Inches): 6.00 Weight (Pounds): 132 GENERAL: The patient is a well-developed and well-nourished male, in no apparent distress. HEENT: Eyes, pupils equal and responsive to light and accommodation. Extraocular movements are intact. NECK: Supple without lymphadenopathy. CHEST: Lungs are clear to auscultation bilaterally without wheezes or rales. CARDIOVASCULAR: Regular rate. S1, S2 are normal without murmurs, rubs, or gallops. ABDOMEN: Soft, nontender, and nondistended. Positive bowel sounds. No evidence of hepatosplenomegaly. Currently, no rebound or guarding noted. EXTREMITIES: Negative for clubbing, cyanosis, or edema. GEnital: necrotic lesion on penis shaft- malodorous and purulent discharge Microbiology Date/Time Source Procedure Growth Status 12/21/19 16:45 Penis Gram Stain Pending Resulted 12/21/19 16:45 Penis Wound Culture - Preliminary Resulted 12/20/19 10:20 Rectal Mucosa - Final NO CARBAPENEM-RESISTANT ENTEROBACTERI... Complete 12/20/19 10:20 Rectal Mucosa VRE Culture - Final NO VANCOMYCIN RESISTANT ENTEROCOCCUS ... Complete 12/19/19 16:25 Urine,Clean Catch Urine Culture - Final Enterobacter Cloacae Complex Complete Laboratory Tests Test 12/22/19 06:10 White Blood Count 14.0 K/UL (4.8-10.8) H Red Blood Count 3.44 M/UL (4.70-6.10) L Hemoglobin 12.3 G/DL (14.2-18.0) L Hematocrit 33.5 % (42.0-52.0) L Mean Corpuscular Volume 97 FL (80-99) Mean Corpuscular Hemoglobin 35.9 PG (27.0-31.0) H Mean Corpuscular Hemoglobin Concent 36.9 G/DL (32.0-36.0) H Red Cell Distribution Width 18.9 % (11.6-14.8) H Platelet Count 414 K/UL (150-450) Mean Platelet Volume 5.6 FL (6.5-10.1) L Neutrophils (%) (Auto) 78.1 % (45.0-75.0) H Lymphocytes (%) (Auto) 10.4 % (20.0-45.0) L Monocytes (%) (Auto) 9.1 % (1.0-10.0) Eosinophils (%) (Auto) 1.6 % (0.0-3.0) Basophils (%) (Auto) 0.9 % (0.0-2.0) Erythrocyte Sedimentation Rate Pending Sodium Level 136 MMOL/L (136-145) Potassium Level 3.8 MMOL/L (3.5-5.1) Chloride Level 102 MMOL/L (98-107) Carbon Dioxide Level 28 MMOL/L (21-32) Anion Gap 6 mmol/L (5-15) Blood Urea Nitrogen 14 mg/dL (7-18) Creatinine 1.0 MG/DL (0.55-1.30) Estimat Glomerular Filtration Rate > 60 mL/min (>60) Glucose Level 103 MG/DL (74-106) Calcium Level 12.7 MG/DL (8.5-10.1) H C-Reactive Protein, Quantitative 34.0 mg/dL (0.00-0.90) H Current Medications Medications (Trade) Dose Ordered Sig/Virginie Route PRN Reason Start Time Stop Time Status Last Admin Dose Admin Acetaminophen (Tylenol) 650 mg Q4H PRN ORAL fever 12/19/19 19:00 01/18/20 18:59 Acetaminophen/ Hydrocodone Bitart ([place] 10/325) 1 tab Q4H PRN ORAL Moderate Pain (Pain Scale 4-6) 12/19/19 21:00 12/26/19 20:59 Acetaminophen/ Hydrocodone Bitart ([place] 10/325) 2 tab Q4H PRN ORAL Severe Pain (Pain Scale 7-10) 12/19/19 21:00 12/26/19 20:59 12/22/19 08:50 Albuterol/ Ipratropium (Albuterol/ Ipratropium) 3 ml Q4H PRN HHN Shortness of Breath 12/19/19 19:00 12/24/19 18:59 Cefepime HCl 2 gm/ Dextrose 110 ml @ 220 mls/hr EVERY 12 HOURS IV 12/19/19 21:00 12/26/19 20:59 12/22/19 08:53 Dextrose (Dextrose 50%) 25 ml Q30M PRN IV Hypoglycemia 12/19/19 19:00 03/18/20 18:59 Dextrose (Dextrose 50%) 50 ml Q30M PRN IV Hypoglycemia 12/19/19 19:00 03/18/20 18:59 Heparin Sodium (Porcine) (Heparin 5000 units/ml) 5,000 units EVERY 12 HOURS SUBQ 12/19/19 21:00 02/02/20 20:59 12/21/19 20:03 Metronidazole (Flagyl) 500 mg Q8HR ORAL 12/21/19 16:33 12/28/19 16:32 12/22/19 04:24 Ondansetron HCl (Zofran) 4 mg Q6H PRN IVP Nausea & Vomiting 12/19/19 19:00 01/18/20 18:59 Patient Own Medication (Patient's Own Med) 1 ea DAILY ORAL 12/21/19 18:00 01/20/20 17:59 12/22/19 08:50 Polyethylene Glycol (Miralax) 17 gm DAILYPRN PRN ORAL Constipation 12/19/19 19:00 01/18/20 18:59 Temazepam (Restoril) 15 mg HSPRN PRN ORAL Insomnia 12/19/19 19:00 12/26/19 18:59 12/21/19 20:41 Vancomycin HCl (Vanco pharmacy to dose) 1 ea DAILY PRN MISC Per rx protocol 12/20/19 17:30 01/19/20 17:29 Vancomycin HCl 1 gm/Sodium Chloride 275 ml @ 183.299 mls/hr Q24H IVPB 12/20/19 16:00 12/25/19 15:59 12/21/19 15:54 Margoth Rider M.D. Dec 22, 2019 13:47
--- NOTE | 2019-12-22 15:37 | NUR ---
CASE MANAGEMENT:REVIEW SI;PENILE NECROTIC WOUND INFECTION URETHRAL CANCER. HYPERCALCEMIA. 97.9 92 19 111/69 93% ON RA WBC 14.0 ESR 21 CA 12.7 CRP 34.0 IS;VANCOMYCIN IV NORCO PO Q4 PRN FLAGYL PO Q8 MEROPENEM IV Q8 BEDSIDE DEBRIDEMENT MED SURG STATUS DCP;FROM [facility] PLAN; POSSIBLE SURGICAL DEBRIDEMENT
[2019-12-22] MEDS: Meropenem 1 GM in NS 55 ML IVPB SCH ×2 (15:38→20:53)
[2019-12-22 16:00] VITALS: BP 115/70
--- NOTE | 2019-12-22 17:37 | Internal Med Progress Note ---
Subjective Date of Service: Dec 22, 2019 Physician Name Javier Martel Attending Physician Ron Enriquez MD Current Medications Medications (Trade) Dose Ordered Sig/Virginie Route PRN Reason Start Time Stop Time Status Last Admin Dose Admin Acetaminophen (Tylenol) 650 mg Q4H PRN ORAL fever 12/19/19 19:00 01/18/20 18:59 Acetaminophen/ Hydrocodone Bitart ([place] 10/325) 1 tab Q4H PRN ORAL Moderate Pain (Pain Scale 4-6) 12/19/19 21:00 12/26/19 20:59 Acetaminophen/ Hydrocodone Bitart ([place] 10/325) 2 tab Q4H PRN ORAL Severe Pain (Pain Scale 7-10) 12/19/19 21:00 12/26/19 20:59 12/22/19 15:43 Albuterol/ Ipratropium (Albuterol/ Ipratropium) 3 ml Q4H PRN HHN Shortness of Breath 12/19/19 19:00 12/24/19 18:59 Dextrose (Dextrose 50%) 25 ml Q30M PRN IV Hypoglycemia 12/19/19 19:00 03/18/20 18:59 Dextrose (Dextrose 50%) 50 ml Q30M PRN IV Hypoglycemia 12/19/19 19:00 03/18/20 18:59 Heparin Sodium (Porcine) (Heparin 5000 units/ml) 5,000 units EVERY 12 HOURS SUBQ 12/19/19 21:00 02/02/20 20:59 12/21/19 20:03 Meropenem 1 gm/ Sodium Chloride 55 ml @ 110 mls/hr Q8HR IVPB 12/22/19 15:00 12/27/19 14:59 12/22/19 15:38 Ondansetron HCl (Zofran) 4 mg Q6H PRN IVP Nausea & Vomiting 12/19/19 19:00 01/18/20 18:59 Patient Own Medication (Patient's Own Med) 1 ea DAILY ORAL 12/21/19 18:00 01/20/20 17:59 12/22/19 08:50 Polyethylene Glycol (Miralax) 17 gm DAILYPRN PRN ORAL Constipation 12/19/19 19:00 01/18/20 18:59 Temazepam (Restoril) 15 mg HSPRN PRN ORAL Insomnia 12/19/19 19:00 12/26/19 18:59 12/21/19 20:41 Vancomycin HCl (Vanco pharmacy to dose) 1 ea DAILY PRN MISC Per rx protocol 12/20/19 17:30 01/19/20 17:29 Vancomycin HCl 750 mg/Sodium Chloride 275 ml @ 183.333 mls/hr Q12HR@0600,1800 IVPB 12/22/19 18:00 12/27/19 17:59 Allergies: Coded Allergies: CODEINE (Verified Allergy, Unknown, 02/05/10) ROS Limited/Unobtainable: No Constitutional: Reports: no symptoms HEENT: Reports: no symptoms Cardiovascular: Reports: no symptoms Respiratory: Reports: no symptoms Gastrointestinal/Abdominal: Reports: no symptoms Genitourinary: Reports: no symptoms Neurologic/Psychiatric: Reports: no symptoms Subjective 59 YO M with H/O urethral cancer admitted with Penile abscess and UTI. Cover for Int Med-Dr Enriquez Objective Last Vital Signs Date Time Temp Pulse Resp B/P (MAP) Pulse Ox O2 Delivery O2 Flow Rate FiO2 12/22/19 16:00 98.2 94 19 115/70 (85) 94 12/22/19 09:00 Room Air 12/19/19 16:21 5.0 28 Laboratory Tests Test 12/22/19 06:10 12/22/19 15:15 White Blood Count 14.0 K/UL (4.8-10.8) H Red Blood Count 3.44 M/UL (4.70-6.10) L Hemoglobin 12.3 G/DL (14.2-18.0) L Hematocrit 33.5 % (42.0-52.0) L Mean Corpuscular Volume 97 FL (80-99) Mean Corpuscular Hemoglobin 35.9 PG (27.0-31.0) H Mean Corpuscular Hemoglobin Concent 36.9 G/DL (32.0-36.0) H Red Cell Distribution Width 18.9 % (11.6-14.8) H Platelet Count 414 K/UL (150-450) Mean Platelet Volume 5.6 FL (6.5-10.1) L Neutrophils (%) (Auto) 78.1 % (45.0-75.0) H Lymphocytes (%) (Auto) 10.4 % (20.0-45.0) L Monocytes (%) (Auto) 9.1 % (1.0-10.0) Eosinophils (%) (Auto) 1.6 % (0.0-3.0) Basophils (%) (Auto) 0.9 % (0.0-2.0) Erythrocyte Sedimentation Rate 21 MM/HR (0-20) H Sodium Level 136 MMOL/L (136-145) Potassium Level 3.8 MMOL/L (3.5-5.1) Chloride Level 102 MMOL/L (98-107) Carbon Dioxide Level 28 MMOL/L (21-32) Anion Gap 6 mmol/L (5-15) Blood Urea Nitrogen 14 mg/dL (7-18) Creatinine 1.0 MG/DL (0.55-1.30) Estimat Glomerular Filtration Rate > 60 mL/min (>60) Glucose Level 103 MG/DL (74-106) Calcium Level 12.7 MG/DL (8.5-10.1) H C-Reactive Protein, Quantitative 34.0 mg/dL (0.00-0.90) H Vancomycin Level Trough 4.6 ug/mL (5.0-12.0) L Microbiology Date/Time Source Procedure Growth Status 12/21/19 16:45 Penis Gram Stain Pending Resulted 12/21/19 16:45 Penis Wound Culture - Preliminary Resulted 12/20/19 10:20 Rectal Mucosa - Final NO CARBAPENEM-RESISTANT ENTEROBACTERI... Complete 12/20/19 10:20 Rectal Mucosa VRE Culture - Final NO VANCOMYCIN RESISTANT ENTEROCOCCUS ... Complete Intake and Output 12/21/19 12/22/19 19:00 07:00 Intake Total 240 ml 570 ml Output Total 900 ml Balance 240 ml -330 ml Intake Oral 240 ml 460 ml IV Total 110 ml Output Urine Total 900 ml Objective PHYSICAL EXAMINATION: GENERAL: The patient is a well-developed and well-nourished male, in no apparent distress. HEENT: Eyes, pupils equal and responsive to light and accommodation. Extraocular movements are intact. NECK: Supple without lymphadenopathy. CHEST: Lungs are clear to auscultation bilaterally without wheezes or rales. CARDIOVASCULAR: Regular rate. S1, S2 are normal without murmurs, rubs, or gallops. ABDOMEN: Soft, nontender, and nondistended. Positive bowel sounds. No evidence of hepatosplenomegaly. Currently, no rebound or guarding noted. EXTREMITIES: Negative for clubbing, cyanosis, or edema. RECTAL AND GENITAL: There is a large fungating mass over the penile and scrotal region. There is foul odor. NEUROLOGICAL: Cranial nerves II through XII are grossly intact without focal deficits. Motor strength is 5/5 bilaterally intact. Deep tendon reflexes are 2+, plantar. Assessment/Plan Assessment/Plan ASSESSMENT: This is a 59-year-old male with: 1. Urinary tract infection=ESBL Enterobacter cloacae 2. Penile abscess. 3. HIV. 4. Urethral cancer. TREATMENT: 1. Urinary tract infection/penile abscess. Antibiotics=meropenem and vanco Infectious Disease consulltation = Dr. Rider. 2. HIV. Continue Symtuza as above. 3. Penile/urethral cancer. Oncology consultation = Dr. Mandeep Horta. Urology consultation = Dr. Chas Larsen. Follow recommendations of Urology and Oncology. Javier Martel MD Dec 22, 2019 17:37
[2019-12-22] MEDS: Vancomycin 750 MG in NS 275 ML IVPB SCH (17:56)
--- NOTE | 2019-12-22 19:17 | NUR ---
NURSE HAND-OFF: Important Events on Shift:wound care on penile carcinoma. IV ATB Patient Status: stable, c/o pain at times. Diet: [] Pending Orders: n/a Pending Results/Labs:n/a Pending MD notification:n/a Latest Vital Signs: Temperature 98.2 , Pulse 94 , B/P 115 /70 , Respiratory Rate 19 , O2 SAT 94 , Room Air, O2 Flow Rate 5.0 . Vital Sign Comment: stable Latest Rahman Fall Score: 35 Fall Risk: Medium Risk Safety Measures: Call light Within Reach, Bed Alarm Zone 1, Side Rails Side Rails x2, Bed position Low and Locked. Fall Precautions: Yellow Socks Patient Fall Education Report given to MADAN Kelly.
[2019-12-22 20:45] VITALS: BP 115/74
[2019-12-23] VITALS: BP 100/59
[2019-12-23 04:00] VITALS: BP 103/67
[2019-12-23] MEDS: Meropenem 1 GM in NS 55 ML IVPB SCH ×3 (05:03→21:15)
[2019-12-23] MEDS: Vancomycin 750 MG in NS 275 ML IVPB SCH (05:35)
[2019-12-23 06:45] LABS: BASOPHILS % (AUTO) 0.7 % (0.0-2.0); EOSINOPHILS % (AUTO) 1.7 % (0.0-3.0); HEMATOCRIT 35.8 % (42.0-52.0); HEMOGLOBIN 13.1 G/DL (14.2-18.0); MEAN CORPUSCULAR VOLUME 99 FL (80-99); MONOCYTES % (AUTO) 8.1 % (1.0-10.0); NEUTROPHILS % (AUTO) 78.6 % (45.0-75.0); PLATELET COUNT 412 K/UL (150-450); RED BLOOD COUNT 3.64 M/UL (4.70-6.10); RED CELL DISTRIBUTION WIDTH 20.4 % (11.6-14.8)
--- NOTE | 2019-12-23 06:50 | Hematology/Onc Progress Note ---
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 Leonard at [facility], per patient is his med onc --> conner 12/21 Dr. Leonard [facility] further f/u --> labs have been reviewed, hold off on tumor markers --> has been seen by Dr. Larsen here and recs noted debridement at some point # Leukocytosis likely due to Penile abscess --> requires abx as per id vanc/flagyl/cefepime --> wbc 13-->14 # Urinary retention with chronic suprapubic tube. --> per uro, surg care # Probable neurogenic bladder. # Urinary tract infection and colonization. # Hematuria. --> improved # Dvt ppx --> hep sq Appreciate consultation and conner RN Subjective HEENT: Denies: no symptoms, eye pain, blurred vision, tearing, double vision, ear pain, ear discharge, nose pain, nose congestion, throat pain, throat swelling, mouth pain, mouth swelling, other Cardiovascular: Denies: no symptoms, chest pain, edema, irregular heart rate, lightheadedness, palpitations, syncope, other Respiratory: Denies: no symptoms, cough, shortness of breath, SOB with excertion, SOB at rest, sputum, wheezing, other Gastrointestinal/Abdominal: Denies: no symptoms, abdomen distended, abdominal pain, black stools, tarry stools, blood in stool, constipated, diarrhea, difficulty swallowing, nausea, poor appetite, poor fluid intake, rectal bleeding, vomiting, other Genitourinary: Denies: no symptoms, burning, discharge, frequency, flank pain, hematuria, incontinence, pain, urgency, other Neurologic/Psychiatric: Denies: no symptoms, anxiety, depressed, emotional problems, headache, numbness, paresthesia, pre-existing deficit, seizure, tingling, tremors, weakness, other Endocrine: Denies: no symptoms, excessive sweating, flushing, intolerance to cold, intolerance to heat, increased hunger, increased thirst, increased urine, unexplained weight gain, unexplained weight loss, other Hematologic/Lymphatic: Denies: no symptoms, anemia, easy bleeding, easy bruising, adenopathy, other Allergies: Coded Allergies: CODEINE (Verified Allergy, Unknown, 02/05/10) Subjective 12/21 is on abx vanc/flagyl, cefepime, on hep, suprapub catheter functional 12/22 no major events, debridement at some pt, dw Dr. Leonard yesterday [facility] Objective Objective Current Medications Medications (Trade) Dose Ordered Sig/Virginie Route PRN Reason Start Time Stop Time Status Last Admin Dose Admin Acetaminophen (Tylenol) 650 mg Q4H PRN ORAL fever 12/19/19 19:00 01/18/20 18:59 Acetaminophen/ Hydrocodone Bitart ([place] 10/325) 1 tab Q4H PRN ORAL Moderate Pain (Pain Scale 4-6) 12/19/19 21:00 12/26/19 20:59 Acetaminophen/ Hydrocodone Bitart ([place] 10/325) 2 tab Q4H PRN ORAL Severe Pain (Pain Scale 7-10) 12/19/19 21:00 12/26/19 20:59 12/22/19 20:54 Albuterol/ Ipratropium (Albuterol/ Ipratropium) 3 ml Q4H PRN HHN Shortness of Breath 12/19/19 19:00 12/24/19 18:59 Dextrose (Dextrose 50%) 25 ml Q30M PRN IV Hypoglycemia 12/19/19 19:00 03/18/20 18:59 Dextrose (Dextrose 50%) 50 ml Q30M PRN IV Hypoglycemia 12/19/19 19:00 03/18/20 18:59 Heparin Sodium (Porcine) (Heparin 5000 units/ml) 5,000 units EVERY 12 HOURS SUBQ 12/19/19 21:00 02/02/20 20:59 12/22/19 20:52 Meropenem 1 gm/ Sodium Chloride 55 ml @ 110 mls/hr Q8HR IVPB 12/22/19 15:00 12/27/19 14:59 12/23/19 05:03 Ondansetron HCl (Zofran) 4 mg Q6H PRN IVP Nausea & Vomiting 12/19/19 19:00 01/18/20 18:59 Patient Own Medication (Patient's Own Med) 1 ea DAILY ORAL 12/21/19 18:00 01/20/20 17:59 12/22/19 08:50 Polyethylene Glycol (Miralax) 17 gm DAILYPRN PRN ORAL Constipation 12/19/19 19:00 01/18/20 18:59 Temazepam (Restoril) 15 mg HSPRN PRN ORAL Insomnia 12/19/19 19:00 12/26/19 18:59 12/22/19 20:53 Vancomycin HCl (Vanco pharmacy to dose) 1 ea DAILY PRN MISC Per rx protocol 12/20/19 17:30 01/19/20 17:29 Vancomycin HCl 750 mg/Sodium Chloride 275 ml @ 183.333 mls/hr Q12HR@0600,1800 IVPB 12/22/19 18:00 12/27/19 17:59 12/23/19 05:35 Last 24 Hour Vital Signs Date Time Temp Pulse Resp B/P (MAP) Pulse Ox O2 Delivery O2 Flow Rate FiO2 12/23/19 04:00 98.2 92 18 103/67 (79) 95 12/23/19 00:00 98.4 69 18 100/59 (73) 95 12/22/19 21:25 97.9 12/22/19 20:45 97.9 100 20 115/74 (88) 95 12/22/19 20:21 Room Air 12/22/19 16:00 98.2 94 19 115/70 (85) 94 12/22/19 12:00 97.9 82 19 106/59 (75) 96 12/22/19 09:00 Room Air 12/22/19 08:00 97.7 87 19 101/60 (74) 95 12/22/19 04:55 97.7 12/22/19 04:16 97.7 92 18 111/69 (83) 93 12/21/19 21:11 97.3 12/21/19 21:00 Room Air 12/21/19 20:00 97.8 82 18 128/74 (92) 96 12/21/19 16:00 97.3 66 19 104/63 (77) 96 12/21/19 12:00 98.1 77 19 100/60 (73) 96 12/21/19 09:00 Room Air 12/21/19 08:00 98.1 67 19 98/60 (73) 96 Intake and Output 12/22/19 12/23/19 19:00 07:00 Intake Total 773.333 ml 201.667 ml Output Total 900 ml Balance 773.333 ml -698.333 ml Intake Oral 480 ml IV Total 293.333 ml 201.667 ml Output Urine Total 900 ml # Voids 1 Labs Test 12/21/19 06:20 12/22/19 06:10 12/22/19 15:15 12/23/19 06:00 White Blood Count 12.5 K/UL (4.8-10.8) 14.0 K/UL (4.8-10.8) Red Blood Count 3.38 M/UL (4.70-6.10) 3.44 M/UL (4.70-6.10) Hemoglobin 12.6 G/DL (14.2-18.0) 12.3 G/DL (14.2-18.0) Hematocrit 32.7 % (42.0-52.0) 33.5 % (42.0-52.0) Mean Corpuscular Volume 97 FL (80-99) 97 FL (80-99) Mean Corpuscular Hemoglobin 37.3 PG (27.0-31.0) 35.9 PG (27.0-31.0) Mean Corpuscular Hemoglobin Concent 38.6 G/DL (32.0-36.0) 36.9 G/DL (32.0-36.0) Red Cell Distribution Width 18.6 % (11.6-14.8) 18.9 % (11.6-14.8) Platelet Count 395 K/UL (150-450) 414 K/UL (150-450) Mean Platelet Volume 5.3 FL (6.5-10.1) 5.6 FL (6.5-10.1) Neutrophils (%) (Auto) 73.3 % (45.0-75.0) 78.1 % (45.0-75.0) Lymphocytes (%) (Auto) 12.9 % (20.0-45.0) 10.4 % (20.0-45.0) Monocytes (%) (Auto) 11.3 % (1.0-10.0) 9.1 % (1.0-10.0) Eosinophils (%) (Auto) 1.5 % (0.0-3.0) 1.6 % (0.0-3.0) Basophils (%) (Auto) 1.0 % (0.0-2.0) 0.9 % (0.0-2.0) Erythrocyte Sedimentation Rate 19 MM/HR (0-20) 21 MM/HR (0-20) Prothrombin Time 11.8 SEC (9.30-11.50) Prothromb Time International Ratio 1.1 (0.9-1.1) Activated Partial Thromboplast Time 30 SEC (23-33) Sodium Level 135 MMOL/L (136-145) 136 MMOL/L (136-145) Potassium Level 4.3 MMOL/L (3.5-5.1) 3.8 MMOL/L (3.5-5.1) Chloride Level 102 MMOL/L (98-107) 102 MMOL/L (98-107) Carbon Dioxide Level 30 MMOL/L (21-32) 28 MMOL/L (21-32) Anion Gap 3 mmol/L (5-15) 6 mmol/L (5-15) Blood Urea Nitrogen 16 mg/dL (7-18) 14 mg/dL (7-18) Creatinine 1.3 MG/DL (0.55-1.30) 1.0 MG/DL (0.55-1.30) Estimat Glomerular Filtration Rate 56.3 mL/min (>60) > 60 mL/min (>60) Glucose Level 94 MG/DL (74-106) 103 MG/DL (74-106) Calcium Level 11.9 MG/DL (8.5-10.1) 12.7 MG/DL (8.5-10.1) C-Reactive Protein, Quantitative 32.4 mg/dL (0.00-0.90) 34.0 mg/dL (0.00-0.90) Prealbumin 10 mg/dL (10-36) Vancomycin Level Trough 4.6 ug/mL (5.0-12.0) Height (Feet): 5 Height (Inches): 6.00 Weight (Pounds): 132 Objective Physical Exam Sp02 EP Interpretation: reviewed, normal General: no apparent distress, Chronically Ill Heent: normocephalic, atraumatic Respiratory: lungs clear, normal breath sounds Cardiovascular: normal peripheral pulses, regular rate Gastrointestinal: non tender, soft, non-distended, no guarding Genitourinary: other - Large area of necrosis noted in the genital region with purulent discharge, ++suprapub catheter Neurologic: alert, oriented x3 Skin: normal color, warm/dry Mandeep Horta MD Dec 23, 2019 06:50
[2019-12-23 07:01] LABS: ALBUMIN 2.2 G/DL (3.4-5.0); ALBUMIN/GLOBULIN RATIO 0.4 (1.0-2.7); BILIRUBIN,TOTAL 0.3 MG/DL (0.2-1.0); CREATININE 1.3 MG/DL (0.55-1.30); POTASSIUM 4.4 MMOL/L (3.5-5.1)
--- NOTE | 2019-12-23 07:02 | NUR ---
HAND-OFF: Report given to Elsa Rutledge RN.
[2019-12-23 07:04] LABS: PHOSPHORUS 2.6 MG/DL (2.5-4.9)
--- NOTE | 2019-12-23 07:44 | NUR ---
NURSE NOTES: Patient is in bed awake and able to verbalize needs. Stable. Denies pain or SOB. Patient instructed to use call light for assistance, verbalized understanding. All safety measures provided. Patient is in bed in locked and lowest position with call light within reach. All needs met at this time. Will continue to monitor.
[2019-12-23 08:00] VITALS: BP 102/62
[2019-12-23] MEDS: SYMTUZA ORAL SCH (08:12)
[2019-12-23] MEDS: Heparin 5000 units/ml inj SUBQ SCH ×2 (08:13→21:15)
--- NOTE | 2019-12-23 08:50 | Urology Progress Note ---
Assessment/Plan Assessment/Plan: 1. History of urethral cancer, status post chemo and immunotherapy and radiation with previous debridement. 2. Urinary retention and a chronic suprapubic tube. 3. Probable neurogenic bladder. 4. UTI and colonization. 5. Hematuria. 6. Proteinuria. 7. Mild acute kidney injury. monitor clinically maintain SPT, plan to change soon hand irrigated and do PRN abx as ordered local wound care debridement PRN d/w Dr. Li Subjective Allergies: Coded Allergies: CODEINE (Verified Allergy, Unknown, 02/05/10) Subjective all noted, no new changes Objective Last 24 Hour Vital Signs Date Time Temp Pulse Resp B/P (MAP) Pulse Ox O2 Delivery O2 Flow Rate FiO2 12/23/19 04:00 98.2 92 18 103/67 (79) 95 12/23/19 00:00 98.4 69 18 100/59 (73) 95 12/22/19 21:25 97.9 12/22/19 20:45 97.9 100 20 115/74 (88) 95 12/22/19 20:21 Room Air 12/22/19 16:00 98.2 94 19 115/70 (85) 94 12/22/19 12:00 97.9 82 19 106/59 (75) 96 12/22/19 09:00 Room Air Intake and Output 12/22/19 12/23/19 19:00 07:00 Intake Total 773.333 ml 385.000 ml Output Total 900 ml Balance 773.333 ml -515.000 ml Intake Oral 480 ml IV Total 293.333 ml 385.000 ml Output Urine Total 900 ml # Voids 1 Microbiology Date/Time Source Procedure Growth Status 12/21/19 16:45 Penis Gram Stain Pending Resulted 12/21/19 16:45 Penis Wound Culture - Preliminary Resulted 12/20/19 10:20 Rectal Mucosa - Final NO CARBAPENEM-RESISTANT ENTEROBACTERI... Complete 12/19/19 16:25 Urine,Clean Catch Urine Culture - Final Enterobacter Cloacae Complex Complete Current Medications Medications (Trade) Dose Ordered Sig/Virginie Route PRN Reason Start Time Stop Time Status Last Admin Dose Admin Acetaminophen (Tylenol) 650 mg Q4H PRN ORAL fever 12/19/19 19:00 01/18/20 18:59 Acetaminophen/ Hydrocodone Bitart ([place] 10/325) 1 tab Q4H PRN ORAL Moderate Pain (Pain Scale 4-6) 12/19/19 21:00 12/26/19 20:59 Acetaminophen/ Hydrocodone Bitart ([place] 10/325) 2 tab Q4H PRN ORAL Severe Pain (Pain Scale 7-10) 12/19/19 21:00 12/26/19 20:59 12/22/19 20:54 Albuterol/ Ipratropium (Albuterol/ Ipratropium) 3 ml Q4H PRN HHN Shortness of Breath 12/19/19 19:00 12/24/19 18:59 Dextrose (Dextrose 50%) 25 ml Q30M PRN IV Hypoglycemia 12/19/19 19:00 03/18/20 18:59 Dextrose (Dextrose 50%) 50 ml Q30M PRN IV Hypoglycemia 12/19/19 19:00 03/18/20 18:59 Heparin Sodium (Porcine) (Heparin 5000 units/ml) 5,000 units EVERY 12 HOURS SUBQ 12/19/19 21:00 02/02/20 20:59 12/23/19 08:13 Meropenem 1 gm/ Sodium Chloride 55 ml @ 110 mls/hr Q8HR IVPB 12/22/19 15:00 12/27/19 14:59 12/23/19 05:03 Ondansetron HCl (Zofran) 4 mg Q6H PRN IVP Nausea & Vomiting 12/19/19 19:00 01/18/20 18:59 Patient Own Medication (Patient's Own Med) 1 ea DAILY ORAL 12/21/19 18:00 01/20/20 17:59 12/23/19 08:12 Polyethylene Glycol (Miralax) 17 gm DAILYPRN PRN ORAL Constipation 12/19/19 19:00 01/18/20 18:59 Temazepam (Restoril) 15 mg HSPRN PRN ORAL Insomnia 12/19/19 19:00 12/26/19 18:59 12/22/19 20:53 Vancomycin HCl (Vanco pharmacy to dose) 1 ea DAILY PRN MISC Per rx protocol 12/20/19 17:30 01/19/20 17:29 Vancomycin HCl 750 mg/Sodium Chloride 275 ml @ 183.333 mls/hr Q12HR@0600,1800 IVPB 12/22/19 18:00 12/27/19 17:59 12/23/19 05:35 Laboratory Tests 12/22/19 15:15: Vancomycin Level Trough 4.6L 12/23/19 06:00: White Blood Count 15.0H, Red Blood Count 3.64L, Hemoglobin 13.1L, Hematocrit 35.8L, Mean Corpuscular Volume 99, Mean Corpuscular Hemoglobin 36.0H, Mean Corpuscular Hemoglobin Concent 36.5H, Red Cell Distribution Width 20.4H, Platelet Count 412, Mean Platelet Volume 5.3L, Neutrophils (%) (Auto) 78.6H, Lymphocytes (%) (Auto) 11.0L, Monocytes (%) (Auto) 8.1, Eosinophils (%) (Auto) 1.7, Basophils (%) (Auto) 0.7, Sodium Level 136, Potassium Level 4.4, Chloride Level 100, Carbon Dioxide Level 33H, Anion Gap 3L, Blood Urea Nitrogen 15, Creatinine 1.3, Estimat Glomerular Filtration Rate 56.3, Glucose Level 105, Calcium Level 13.0H, Phosphorus Level 2.6, Magnesium Level 1.7L, Total Bilirubin 0.3, Aspartate Amino Transf (AST/SGOT) 15, Alanine Aminotransferase (ALT/SGPT) 8L, Alkaline Phosphatase 96, Total Protein 7.8, Albumin 2.2L, Globulin 5.6, Albumin/Globulin Ratio 0.4L Height (Feet): 5 Height (Inches): 6.00 Weight (Pounds): 132 Objective exam stable Chas Larsen MD Dec 23, 2019 08:50
--- NOTE | 2019-12-23 10:25 | Infectious Diseases Prog Note ---
Assessment/Plan Assessment: UTI -u/a wbc 40/6-, nit +, leuk +2; ucx >100k ESBL e. clocae complex Penile necrotic wound infection -wound cx p Afebrile Leukocytosis, increasing urethral CA dx'ed 2019 sp chemotherapy x 12 sessions and radiation x8 sessions and surgical intervention (follows at [facility]) hx of penile abscess HIV on Symtuza (dx'ed 20 yrs ago) former smoker (quit 8yrs ago) recurrent UTI on bactrim ppx urinary retention sp chronic suprapubic tube SNF resident ([facility]) Plan: -Continue empiric IV Vancomycin #5 -MEropenem #2 for ESBL -12/21 SP Cefepime #4, Flagyl #2 -12/18 SP Meropenem x1 -f/u cx -Monitor CBC/CMP, temperatures -wound cx -Uro and Gen sx f/u -wound care per surgical team Thank you for consulting [facility]. Will continue to follow along with you. Discussed with RN. Subjective Allergies: Coded Allergies: CODEINE (Verified Allergy, Unknown, 02/05/10) afebrile wbc increasing Objective Last 24 Hour Vital Signs Date Time Temp Pulse Resp B/P (MAP) Pulse Ox O2 Delivery O2 Flow Rate FiO2 12/23/19 04:00 98.2 92 18 103/67 (79) 95 12/23/19 00:00 98.4 69 18 100/59 (73) 95 12/22/19 21:25 97.9 12/22/19 20:45 97.9 100 20 115/74 (88) 95 12/22/19 20:21 Room Air 12/22/19 16:00 98.2 94 19 115/70 (85) 94 12/22/19 12:00 97.9 82 19 106/59 (75) 96 Height (Feet): 5 Height (Inches): 6.00 Weight (Pounds): 132 GENERAL: The patient is a well-developed and well-nourished male, in no apparent distress. HEENT: Eyes, pupils equal and responsive to light and accommodation. Extraocular movements are intact. NECK: Supple without lymphadenopathy. CHEST: Lungs are clear to auscultation bilaterally without wheezes or rales. CARDIOVASCULAR: Regular rate. S1, S2 are normal without murmurs, rubs, or gallops. ABDOMEN: Soft, nontender, and nondistended. Positive bowel sounds. No evidence of hepatosplenomegaly. Currently, no rebound or guarding noted. EXTREMITIES: Negative for clubbing, cyanosis, or edema. GEnital: necrotic lesion on penis shaft- malodorous and purulent discharge Microbiology Date/Time Source Procedure Growth Status 12/21/19 16:45 Penis Gram Stain Pending Resulted 12/21/19 16:45 Penis Wound Culture - Preliminary Resulted Laboratory Tests Test 12/22/19 15:15 12/23/19 06:00 Vancomycin Level Trough 4.6 ug/mL (5.0-12.0) L White Blood Count 15.0 K/UL (4.8-10.8) H Red Blood Count 3.64 M/UL (4.70-6.10) L Hemoglobin 13.1 G/DL (14.2-18.0) L Hematocrit 35.8 % (42.0-52.0) L Mean Corpuscular Volume 99 FL (80-99) Mean Corpuscular Hemoglobin 36.0 PG (27.0-31.0) H Mean Corpuscular Hemoglobin Concent 36.5 G/DL (32.0-36.0) H Red Cell Distribution Width 20.4 % (11.6-14.8) H Platelet Count 412 K/UL (150-450) Mean Platelet Volume 5.3 FL (6.5-10.1) L Neutrophils (%) (Auto) 78.6 % (45.0-75.0) H Lymphocytes (%) (Auto) 11.0 % (20.0-45.0) L Monocytes (%) (Auto) 8.1 % (1.0-10.0) Eosinophils (%) (Auto) 1.7 % (0.0-3.0) Basophils (%) (Auto) 0.7 % (0.0-2.0) Sodium Level 136 MMOL/L (136-145) Potassium Level 4.4 MMOL/L (3.5-5.1) Chloride Level 100 MMOL/L (98-107) Carbon Dioxide Level 33 MMOL/L (21-32) H Anion Gap 3 mmol/L (5-15) L Blood Urea Nitrogen 15 mg/dL (7-18) Creatinine 1.3 MG/DL (0.55-1.30) Estimat Glomerular Filtration Rate 56.3 mL/min (>60) Glucose Level 105 MG/DL (74-106) Calcium Level 13.0 MG/DL (8.5-10.1) H Phosphorus Level 2.6 MG/DL (2.5-4.9) Magnesium Level 1.7 MG/DL (1.8-2.4) L Total Bilirubin 0.3 MG/DL (0.2-1.0) Aspartate Amino Transf (AST/SGOT) 15 U/L (15-37) Alanine Aminotransferase (ALT/SGPT) 8 U/L (12-78) L Alkaline Phosphatase 96 U/L (46-116) Total Protein 7.8 G/DL (6.4-8.2) Albumin 2.2 G/DL (3.4-5.0) L Globulin 5.6 g/dL Albumin/Globulin Ratio 0.4 (1.0-2.7) L Current Medications Medications (Trade) Dose Ordered Sig/Virginie Route PRN Reason Start Time Stop Time Status Last Admin Dose Admin Acetaminophen (Tylenol) 650 mg Q4H PRN ORAL fever 12/19/19 19:00 01/18/20 18:59 Acetaminophen/ Hydrocodone Bitart ([place] 10/325) 1 tab Q4H PRN ORAL Moderate Pain (Pain Scale 4-6) 12/19/19 21:00 12/26/19 20:59 Acetaminophen/ Hydrocodone Bitart ([place] 10/325) 2 tab Q4H PRN ORAL Severe Pain (Pain Scale 7-10) 12/19/19 21:00 12/26/19 20:59 12/22/19 20:54 Albuterol/ Ipratropium (Albuterol/ Ipratropium) 3 ml Q4H PRN HHN Shortness of Breath 12/19/19 19:00 12/24/19 18:59 Dextrose (Dextrose 50%) 25 ml Q30M PRN IV Hypoglycemia 12/19/19 19:00 03/18/20 18:59 Dextrose (Dextrose 50%) 50 ml Q30M PRN IV Hypoglycemia 12/19/19 19:00 03/18/20 18:59 Heparin Sodium (Porcine) (Heparin 5000 units/ml) 5,000 units EVERY 12 HOURS SUBQ 12/19/19 21:00 02/02/20 20:59 12/23/19 08:13 Meropenem 1 gm/ Sodium Chloride 55 ml @ 110 mls/hr Q8HR IVPB 12/22/19 15:00 12/27/19 14:59 12/23/19 05:03 Ondansetron HCl (Zofran) 4 mg Q6H PRN IVP Nausea & Vomiting 12/19/19 19:00 01/18/20 18:59 Patient Own Medication (Patient's Own Med) 1 ea DAILY ORAL 12/21/19 18:00 01/20/20 17:59 12/23/19 08:12 Polyethylene Glycol (Miralax) 17 gm DAILYPRN PRN ORAL Constipation 12/19/19 19:00 01/18/20 18:59 Temazepam (Restoril) 15 mg HSPRN PRN ORAL Insomnia 12/19/19 19:00 12/26/19 18:59 12/22/19 20:53 Vancomycin HCl (Vanco pharmacy to dose) 1 ea DAILY PRN MISC Per rx protocol 12/20/19 17:30 01/19/20 17:29 Vancomycin HCl 750 mg/Sodium Chloride 275 ml @ 183.333 mls/hr Q12HR@0600,1800 IVPB 12/22/19 18:00 12/27/19 17:59 12/23/19 05:35 Margoth Rider M.D. Dec 23, 2019 10:25
--- NOTE | 2019-12-23 11:50 | Pulmonology Progress Note ---
Subjective ROS Limited/Unobtainable: No Constitutional: Reports: no symptoms HEENT: Repors: no symptoms Allergies: Coded Allergies: CODEINE (Verified Allergy, Unknown, 02/05/10) Objective Last 24 Hour Vital Signs Date Time Temp Pulse Resp B/P (MAP) Pulse Ox O2 Delivery O2 Flow Rate FiO2 12/23/19 09:00 Room Air 12/23/19 08:00 97.4 106 20 102/62 (75) 95 12/23/19 04:00 98.2 92 18 103/67 (79) 95 12/23/19 00:00 98.4 69 18 100/59 (73) 95 12/22/19 21:25 97.9 12/22/19 20:45 97.9 100 20 115/74 (88) 95 12/22/19 20:21 Room Air 12/22/19 16:00 98.2 94 19 115/70 (85) 94 12/22/19 12:00 97.9 82 19 106/59 (75) 96 Intake and Output 12/22/19 12/23/19 19:00 07:00 Intake Total 773.333 ml 385.000 ml Output Total 900 ml Balance 773.333 ml -515.000 ml Intake Oral 480 ml IV Total 293.333 ml 385.000 ml Output Urine Total 900 ml # Voids 1 General Appearance: cachetic HEENT: normocephalic, atraumatic Respiratory: chest wall non-tender, lungs clear Cardiovascular: normal peripheral pulses, normal rate, regular rhythm Abdomen: normal bowel sounds, soft, non tender Genitourinary: normal external genitalia Extremities: no cyanosis Skin: no rash 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: 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 II-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 grossly normal Microbiology Date/Time Source Procedure Growth Status 12/21/19 16:45 Penis Gram Stain - Final Resulted 12/21/19 16:45 Penis Wound Culture - Preliminary Resulted Laboratory Tests 12/22/19 15:15: Vancomycin Level Trough 4.6L 12/23/19 06:00: White Blood Count 15.0H, Red Blood Count 3.64L, Hemoglobin 13.1L, Hematocrit 35.8L, Mean Corpuscular Volume 99, Mean Corpuscular Hemoglobin 36.0H, Mean Corpuscular Hemoglobin Concent 36.5H, Red Cell Distribution Width 20.4H, Platelet Count 412, Mean Platelet Volume 5.3L, Neutrophils (%) (Auto) 78.6H, Lymphocytes (%) (Auto) 11.0L, Monocytes (%) (Auto) 8.1, Eosinophils (%) (Auto) 1.7, Basophils (%) (Auto) 0.7, Sodium Level 136, Potassium Level 4.4, Chloride Level 100, Carbon Dioxide Level 33H, Anion Gap 3L, Blood Urea Nitrogen 15, Creatinine 1.3, Estimat Glomerular Filtration Rate 56.3, Glucose Level 105, Calcium Level 13.0H, Phosphorus Level 2.6, Magnesium Level 1.7L, Total Bilirubin 0.3, Aspartate Amino Transf (AST/SGOT) 15, Alanine Aminotransferase (ALT/SGPT) 8L, Alkaline Phosphatase 96, Total Protein 7.8, Albumin 2.2L, Globulin 5.6, Albumin/Globulin Ratio 0.4L Current Medications Medications (Trade) Dose Ordered Sig/Virginie Route PRN Reason Start Time Stop Time Status Last Admin Dose Admin Acetaminophen (Tylenol) 650 mg Q4H PRN ORAL fever 12/19/19 19:00 01/18/20 18:59 Acetaminophen/ Hydrocodone Bitart ([place] 10/325) 1 tab Q4H PRN ORAL Moderate Pain (Pain Scale 4-6) 12/19/19 21:00 12/26/19 20:59 Acetaminophen/ Hydrocodone Bitart ([place] 10/325) 2 tab Q4H PRN ORAL Severe Pain (Pain Scale 7-10) 12/19/19 21:00 12/26/19 20:59 12/22/19 20:54 Albuterol/ Ipratropium (Albuterol/ Ipratropium) 3 ml Q4H PRN HHN Shortness of Breath 12/19/19 19:00 12/24/19 18:59 Dextrose (Dextrose 50%) 25 ml Q30M PRN IV Hypoglycemia 12/19/19 19:00 03/18/20 18:59 Dextrose (Dextrose 50%) 50 ml Q30M PRN IV Hypoglycemia 12/19/19 19:00 03/18/20 18:59 Heparin Sodium (Porcine) (Heparin 5000 units/ml) 5,000 units EVERY 12 HOURS SUBQ 12/19/19 21:00 02/02/20 20:59 12/23/19 08:13 Meropenem 1 gm/ Sodium Chloride 55 ml @ 110 mls/hr Q8HR IVPB 12/22/19 15:00 12/27/19 14:59 12/23/19 05:03 Ondansetron HCl (Zofran) 4 mg Q6H PRN IVP Nausea & Vomiting 12/19/19 19:00 01/18/20 18:59 Patient Own Medication (Patient's Own Med) 1 ea DAILY ORAL 12/21/19 18:00 01/20/20 17:59 12/23/19 08:12 Polyethylene Glycol (Miralax) 17 gm DAILYPRN PRN ORAL Constipation 12/19/19 19:00 01/18/20 18:59 Temazepam (Restoril) 15 mg HSPRN PRN ORAL Insomnia 12/19/19 19:00 12/26/19 18:59 12/22/19 20:53 Vancomycin HCl (Vanco pharmacy to dose) 1 ea DAILY PRN MISC Per rx protocol 12/20/19 17:30 01/19/20 17:29 Vancomycin HCl 750 mg/Sodium Chloride 275 ml @ 183.333 mls/hr Q12HR@0600,1800 IVPB 12/22/19 18:00 12/27/19 17:59 12/23/19 05:35 Assessment/Plan Problems: (1) Penile abscess (2) Catheter-associated urinary tract infection (3) Sepsis Assessment/Plan getting better WBC still high Urine has GNR continue abx ID evaluation appreciated symptomatic treatment dvt prophylaxis. Jasbir Larsen MD Dec 23, 2019 11:50
[2019-12-23 12:00] VITALS: BP 122/72
--- NOTE | 2019-12-23 12:07 | Internal Med Progress Note ---
Subjective Date of Service: Dec 23, 2019 Physician Name Javier Martel Attending Physician Ron Enriquez MD Current Medications Medications (Trade) Dose Ordered Sig/Virginie Route PRN Reason Start Time Stop Time Status Last Admin Dose Admin Acetaminophen (Tylenol) 650 mg Q4H PRN ORAL fever 12/19/19 19:00 01/18/20 18:59 Acetaminophen/ Hydrocodone Bitart ([place] 10/325) 1 tab Q4H PRN ORAL Moderate Pain (Pain Scale 4-6) 12/19/19 21:00 12/26/19 20:59 Acetaminophen/ Hydrocodone Bitart ([place] 10/325) 2 tab Q4H PRN ORAL Severe Pain (Pain Scale 7-10) 12/19/19 21:00 12/26/19 20:59 12/22/19 20:54 Albuterol/ Ipratropium (Albuterol/ Ipratropium) 3 ml Q4H PRN HHN Shortness of Breath 12/19/19 19:00 12/24/19 18:59 Dextrose (Dextrose 50%) 25 ml Q30M PRN IV Hypoglycemia 12/19/19 19:00 03/18/20 18:59 Dextrose (Dextrose 50%) 50 ml Q30M PRN IV Hypoglycemia 12/19/19 19:00 03/18/20 18:59 Heparin Sodium (Porcine) (Heparin 5000 units/ml) 5,000 units EVERY 12 HOURS SUBQ 12/19/19 21:00 02/02/20 20:59 12/23/19 08:13 Meropenem 1 gm/ Sodium Chloride 55 ml @ 110 mls/hr Q8HR IVPB 12/22/19 15:00 12/27/19 14:59 12/23/19 05:03 Ondansetron HCl (Zofran) 4 mg Q6H PRN IVP Nausea & Vomiting 12/19/19 19:00 01/18/20 18:59 Patient Own Medication (Patient's Own Med) 1 ea DAILY ORAL 12/21/19 18:00 01/20/20 17:59 12/23/19 08:12 Polyethylene Glycol (Miralax) 17 gm DAILYPRN PRN ORAL Constipation 12/19/19 19:00 01/18/20 18:59 Temazepam (Restoril) 15 mg HSPRN PRN ORAL Insomnia 12/19/19 19:00 12/26/19 18:59 12/22/19 20:53 Vancomycin HCl (Vanco pharmacy to dose) 1 ea DAILY PRN MISC Per rx protocol 12/20/19 17:30 01/19/20 17:29 Vancomycin HCl 750 mg/Sodium Chloride 275 ml @ 183.333 mls/hr Q12HR@0600,1800 IVPB 12/22/19 18:00 12/27/19 17:59 12/23/19 05:35 Allergies: Coded Allergies: CODEINE (Verified Allergy, Unknown, 02/05/10) ROS Limited/Unobtainable: No Constitutional: Reports: no symptoms HEENT: Reports: no symptoms Cardiovascular: Reports: no symptoms Respiratory: Reports: no symptoms Gastrointestinal/Abdominal: Reports: no symptoms Genitourinary: Reports: no symptoms Neurologic/Psychiatric: Reports: no symptoms Subjective 59 YO M with H/O urethral cancer admitted with Penile abscess and UTI. Cover for Int Med-Dr Enriquez Objective Last Vital Signs Date Time Temp Pulse Resp B/P (MAP) Pulse Ox O2 Delivery O2 Flow Rate FiO2 12/23/19 09:00 Room Air 12/23/19 08:00 97.4 106 20 102/62 (75) 95 12/19/19 16:21 5.0 28 Laboratory Tests Test 12/22/19 15:15 12/23/19 06:00 Vancomycin Level Trough 4.6 ug/mL (5.0-12.0) L White Blood Count 15.0 K/UL (4.8-10.8) H Red Blood Count 3.64 M/UL (4.70-6.10) L Hemoglobin 13.1 G/DL (14.2-18.0) L Hematocrit 35.8 % (42.0-52.0) L Mean Corpuscular Volume 99 FL (80-99) Mean Corpuscular Hemoglobin 36.0 PG (27.0-31.0) H Mean Corpuscular Hemoglobin Concent 36.5 G/DL (32.0-36.0) H Red Cell Distribution Width 20.4 % (11.6-14.8) H Platelet Count 412 K/UL (150-450) Mean Platelet Volume 5.3 FL (6.5-10.1) L Neutrophils (%) (Auto) 78.6 % (45.0-75.0) H Lymphocytes (%) (Auto) 11.0 % (20.0-45.0) L Monocytes (%) (Auto) 8.1 % (1.0-10.0) Eosinophils (%) (Auto) 1.7 % (0.0-3.0) Basophils (%) (Auto) 0.7 % (0.0-2.0) Sodium Level 136 MMOL/L (136-145) Potassium Level 4.4 MMOL/L (3.5-5.1) Chloride Level 100 MMOL/L (98-107) Carbon Dioxide Level 33 MMOL/L (21-32) H Anion Gap 3 mmol/L (5-15) L Blood Urea Nitrogen 15 mg/dL (7-18) Creatinine 1.3 MG/DL (0.55-1.30) Estimat Glomerular Filtration Rate 56.3 mL/min (>60) Glucose Level 105 MG/DL (74-106) Calcium Level 13.0 MG/DL (8.5-10.1) H Phosphorus Level 2.6 MG/DL (2.5-4.9) Magnesium Level 1.7 MG/DL (1.8-2.4) L Total Bilirubin 0.3 MG/DL (0.2-1.0) Aspartate Amino Transf (AST/SGOT) 15 U/L (15-37) Alanine Aminotransferase (ALT/SGPT) 8 U/L (12-78) L Alkaline Phosphatase 96 U/L (46-116) Total Protein 7.8 G/DL (6.4-8.2) Albumin 2.2 G/DL (3.4-5.0) L Globulin 5.6 g/dL Albumin/Globulin Ratio 0.4 (1.0-2.7) L Microbiology Date/Time Source Procedure Growth Status 12/21/19 16:45 Penis Gram Stain - Final Resulted 12/21/19 16:45 Wound Culture - Preliminary Gram Negative Bacillus 1 Gram Negative Bacillus 2 Gram Positive Cocci Resulted Intake and Output 12/22/19 12/23/19 19:00 07:00 Intake Total 773.333 ml 385.000 ml Output Total 900 ml Balance 773.333 ml -515.000 ml Intake Oral 480 ml IV Total 293.333 ml 385.000 ml Output Urine Total 900 ml # Voids 1 Objective PHYSICAL EXAMINATION: GENERAL: The patient is a well-developed and well-nourished male, in no apparent distress. HEENT: Eyes, pupils equal and responsive to light and accommodation. Extraocular movements are intact. NECK: Supple without lymphadenopathy. CHEST: Lungs are clear to auscultation bilaterally without wheezes or rales. CARDIOVASCULAR: Regular rate. S1, S2 are normal without murmurs, rubs, or gallops. ABDOMEN: Soft, nontender, and nondistended. Positive bowel sounds. No evidence of hepatosplenomegaly. Currently, no rebound or guarding noted. EXTREMITIES: Negative for clubbing, cyanosis, or edema. RECTAL AND GENITAL: There is a large fungating mass over the penile and scrotal region. There is foul odor. NEUROLOGICAL: Cranial nerves II through XII are grossly intact without focal deficits. Motor strength is 5/5 bilaterally intact. Deep tendon reflexes are 2+, plantar. Assessment/Plan Assessment/Plan ASSESSMENT: This is a 59-year-old male with: 1. Urinary tract infection=ESBL Enterobacter cloacae 2. Penile abscess. 3. HIV. 4. Urethral cancer. TREATMENT: 1. Urinary tract infection/penile abscess. Antibiotics=meropenem and vanco Infectious Disease consulltation = Dr. Rider. 2. HIV. Continue Symtuza as above. 3. Penile/urethral cancer. Oncology consultation = Dr. Mandeep Horta. Urology consultation = Dr. Chas Larsen. Follow recommendations of Urology and Oncology. Javier Martel MD Dec 23, 2019 12:07
[2019-12-23] MEDS ORDERED: Albuterol/Ipratropium 3ml neb HHN PRN (15:00)
--- NOTE | 2019-12-23 15:56 | Surgery Progress Note ---
Surgery Progress Note Subjective Symptoms: improved, tolerating diet, passing flatus Objective Last 24 Hour Vital Signs Date Time Temp Pulse Resp B/P (MAP) Pulse Ox O2 Delivery O2 Flow Rate FiO2 12/23/19 12:00 97.7 101 19 122/72 (89) 99 12/23/19 09:00 Room Air 12/23/19 08:00 97.4 106 20 102/62 (75) 95 12/23/19 04:00 98.2 92 18 103/67 (79) 95 12/23/19 00:00 98.4 69 18 100/59 (73) 95 12/22/19 21:25 97.9 12/22/19 20:45 97.9 100 20 115/74 (88) 95 12/22/19 20:21 Room Air 12/22/19 16:00 98.2 94 19 115/70 (85) 94 I&O Intake and Output 12/22/19 12/23/19 19:00 07:00 Intake Total 773.333 ml 385.000 ml Output Total 900 ml Balance 773.333 ml -515.000 ml Intake Oral 480 ml IV Total 293.333 ml 385.000 ml Output Urine Total 900 ml # Voids 1 Dressing: saturated Cardiovascular: RSR Respiratory: decreased breath sounds Abdomen: non-tender, present bowel sounds Extremities: no edema, no tenderness, no cyanosis Laboratory Tests Test 12/23/19 06:00 White Blood Count 15.0 K/UL (4.8-10.8) H Red Blood Count 3.64 M/UL (4.70-6.10) L Hemoglobin 13.1 G/DL (14.2-18.0) L Hematocrit 35.8 % (42.0-52.0) L Mean Corpuscular Volume 99 FL (80-99) Mean Corpuscular Hemoglobin 36.0 PG (27.0-31.0) H Mean Corpuscular Hemoglobin Concent 36.5 G/DL (32.0-36.0) H Red Cell Distribution Width 20.4 % (11.6-14.8) H Platelet Count 412 K/UL (150-450) Mean Platelet Volume 5.3 FL (6.5-10.1) L Neutrophils (%) (Auto) 78.6 % (45.0-75.0) H Lymphocytes (%) (Auto) 11.0 % (20.0-45.0) L Monocytes (%) (Auto) 8.1 % (1.0-10.0) Eosinophils (%) (Auto) 1.7 % (0.0-3.0) Basophils (%) (Auto) 0.7 % (0.0-2.0) Sodium Level 136 MMOL/L (136-145) Potassium Level 4.4 MMOL/L (3.5-5.1) Chloride Level 100 MMOL/L (98-107) Carbon Dioxide Level 33 MMOL/L (21-32) H Anion Gap 3 mmol/L (5-15) L Blood Urea Nitrogen 15 mg/dL (7-18) Creatinine 1.3 MG/DL (0.55-1.30) Estimat Glomerular Filtration Rate 56.3 mL/min (>60) Glucose Level 105 MG/DL (74-106) Calcium Level 13.0 MG/DL (8.5-10.1) H Phosphorus Level 2.6 MG/DL (2.5-4.9) Magnesium Level 1.7 MG/DL (1.8-2.4) L Total Bilirubin 0.3 MG/DL (0.2-1.0) Aspartate Amino Transf (AST/SGOT) 15 U/L (15-37) Alanine Aminotransferase (ALT/SGPT) 8 U/L (12-78) L Alkaline Phosphatase 96 U/L (46-116) Total Protein 7.8 G/DL (6.4-8.2) Albumin 2.2 G/DL (3.4-5.0) L Globulin 5.6 g/dL Albumin/Globulin Ratio 0.4 (1.0-2.7) L Plan Problems: (1) Penile abscess Assessment & Plan: 61-year-old male with known urethral cancer status post chemoradiation presented with worsening wound necrosis and potential infection of the site. Patient seen prior penis necrosis falling off now remaining soft tissue in the malignancy region also with necrotic nonviable tissue identified. Drainage is serosanguineous at times sometimes serious and does not seem significant purulent. The cellulitis is minimal. Patient's labs noted. Given patient's history condition immunocompromise status recommend IV antibiotics. I discussed the patient and considerations for debriding some of the nonviable tissue though this will not in any way improve his cancer stated could help with local wound care. Patient expressed understanding we will continue to follow with local care and provide as necessary. No drainage of abscess identified at this time we will monitor thank you f/u with primary onc as per heme labs noted on rx wounds and slough/necrotic tissue debridement at bedside penis is fully necrotic and hanging off. will discuss consideration of oper ative debridement including penis. not recommended at bedside given likely bleeding with debridement. (2) Urethral cancer (3) Abscess (4) Sepsis (5) Catheter-associated urinary tract infection Romain Li Dec 23, 2019 15:56
[2019-12-23 16:00] VITALS: BP 105/79
--- NOTE | 2019-12-23 16:36 | NUR ---
CASE MANAGEMENT:REVIEW SI;PENILE NECROTIC WOUND INFECTION URETHRAL CANCER. HYPERCALCEMIA. SEPSIS. 98.4 106 20 100/59 95% ON RA WBC 15.0 CO2 33 CA 13.0 MAG 1.7 ALB 2.2 IS;VANCOMYCIN IV Q12 MEROPENEM IV Q8 HEPARIN SUBQ Q12 MED SURG STATUS DCP;FROM [facility]; SURGICAL DEBRIDEMENT
[2019-12-23] MEDS: HYDROcodone/Acetamin 10/325 tab ORAL PRN (18:15)
--- NOTE | 2019-12-23 19:30 | NUR ---
NURSE NOTES: RECEIVED PATIENT FROM MADAN CARDOZA. PATIENT IS AAOX2, ON ROOM AIR, NO ACUTE DISTRESS NOTED. WOUND DRESSINGS ON SCROTUM INTACT AND DRY. PIV INTACT AND PATENT. SUPRAPUBIC CATH IN PLACE, DRAINING WELL. BED IS LOCKED AND LOW, BED ALARMS ACTIVE, SIDE RAILS UPX2 AND CALL LIGHT IS WITHIN REACH. WILL CONTINUE TO MONITOR.
--- NOTE | 2019-12-23 19:48 | NUR ---
NURSE HAND-OFF: Important Events on Shift: IV antibiotics Patient Status: stable Diet: regular Pending Orders: n/a Pending Results/Labs:n/a Pending MD notification:n/a Latest Vital Signs: Temperature 97.7 , Pulse 93 , B/P 105 /79 , Respiratory Rate 18 , O2 SAT 97 , Room Air, O2 Flow Rate 5.0 . Vital Sign Comment: n/a Latest Rahman Fall Score: 35 Fall Risk: Medium Risk Safety Measures: Call light Within Reach, Bed Alarm Zone 1, Side Rails Side Rails x2, Bed position Low and Locked. Fall Precautions: Yellow Socks Patient Fall Education Report given to Tejal RN.
[2019-12-23 20:00] VITALS: BP 113/71
[2019-12-23] MEDS: Vancomycin 1 GM in NS 275 ML IVPB SCH (21:14)
[2019-12-24] VITALS: BP 96/59
[2019-12-24 04:00] VITALS: BP 150/61
[2019-12-24] MEDS: HYDROcodone/Acetamin 10/325 tab ORAL PRN ×3 (06:00→21:54)
[2019-12-24] MEDS: Meropenem 1 GM in NS 55 ML IVPB SCH (06:00)
--- NOTE | 2019-12-24 06:49 | Hematology/Onc Progress Note ---
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 Leonard at [facility], per patient is his med onc --> dw 12/21 Dr. Leonard [facility] further f/u --> labs have been reviewed, hold off on tumor markers --> has been seen by Dr. Larsen here and recs noted debridement at some point --> 12/22 s/p debridement at bedside # Leukocytosis likely due to Penile abscess --> requires abx as per id vanc/flagyl/cefepime-->vanc/chelsea --> wbc 13-->14 # Urinary retention with chronic suprapubic tube. --> per uro, surg care # Probable neurogenic bladder. # Urinary tract infection and colonization. # Hematuria. --> improved # Dvt ppx --> hep sq Appreciate consultation and dw RN Subjective Cardiovascular: Denies: no symptoms, chest pain, edema, irregular heart rate, lightheadedness, palpitations, syncope, other Genitourinary: Denies: no symptoms, burning, discharge, frequency, flank pain, hematuria, incontinence, pain, urgency, other Neurologic/Psychiatric: Denies: no symptoms, anxiety, depressed, emotional problems, headache, numbness, paresthesia, pre-existing deficit, seizure, tingling, tremors, weakness, other Endocrine: Denies: no symptoms, excessive sweating, flushing, intolerance to cold, intolerance to heat, increased hunger, increased thirst, increased urine, unexplained weight gain, unexplained weight loss, other Hematologic/Lymphatic: Denies: no symptoms, anemia, easy bleeding, easy bruising, adenopathy, other Allergies: Coded Allergies: CODEINE (Verified Allergy, Unknown, 02/05/10) Subjective 12/21 is on abx vanc/flagyl, cefepime, on hep, suprapub catheter functional 12/22 no major events, debridement at some pt, dw Dr. Leonard yesterday [facility] 12/23 underwent bedside debridement yesterday, feeling better, dressing in place Objective Objective Current Medications Medications (Trade) Dose Ordered Sig/Virginie Route PRN Reason Start Time Stop Time Status Last Admin Dose Admin Acetaminophen (Tylenol) 650 mg Q4H PRN ORAL fever 12/19/19 19:00 01/18/20 18:59 Acetaminophen/ Hydrocodone Bitart ([place] 10/325) 1 tab Q4H PRN ORAL Moderate Pain (Pain Scale 4-6) 12/23/19 15:00 12/30/19 14:59 Acetaminophen/ Hydrocodone Bitart ([place] 10/325) 2 tab Q4H PRN ORAL Severe Pain (Pain Scale 7-10) 12/23/19 15:00 12/30/19 14:59 12/24/19 06:00 Albuterol/ Ipratropium (Albuterol/ Ipratropium) 3 ml Q4H PRN HHN Shortness of Breath 12/23/19 15:00 12/28/19 14:59 Dextrose (Dextrose 50%) 25 ml Q30M PRN IV Hypoglycemia 12/19/19 19:00 03/18/20 18:59 Dextrose (Dextrose 50%) 50 ml Q30M PRN IV Hypoglycemia 12/19/19 19:00 03/18/20 18:59 Heparin Sodium (Porcine) (Heparin 5000 units/ml) 5,000 units EVERY 12 HOURS SUBQ 12/19/19 21:00 02/02/20 20:59 12/23/19 21:15 Meropenem 1 gm/ Sodium Chloride 55 ml @ 110 mls/hr Q8HR IVPB 12/22/19 15:00 12/27/19 14:59 12/24/19 06:00 Ondansetron HCl (Zofran) 4 mg Q6H PRN IVP Nausea & Vomiting 12/19/19 19:00 01/18/20 18:59 Patient Own Medication (Patient's Own Med) 1 ea DAILY ORAL 12/21/19 18:00 01/20/20 17:59 12/23/19 08:12 Polyethylene Glycol (Miralax) 17 gm DAILYPRN PRN ORAL Constipation 12/19/19 19:00 01/18/20 18:59 Temazepam (Restoril) 15 mg HSPRN PRN ORAL Insomnia 12/23/19 15:00 12/30/19 14:59 Vancomycin HCl (Vanco pharmacy to dose) 1 ea DAILY PRN MISC Per rx protocol 12/20/19 17:30 01/19/20 17:29 Vancomycin HCl 1 gm/Sodium Chloride 275 ml @ 183.708 mls/hr Q12HR@0800,2000 IVPB 12/23/19 20:00 12/28/19 19:59 12/23/19 21:14 Last 24 Hour Vital Signs Date Time Temp Pulse Resp B/P (MAP) Pulse Ox O2 Delivery O2 Flow Rate FiO2 12/24/19 04:00 97.7 92 16 150/61 (90) 93 12/24/19 00:00 97.1 93 18 96/59 (71) 94 12/23/19 21:00 Room Air 12/23/19 20:00 98.2 88 18 113/71 (85) 97 12/23/19 16:00 97.7 93 18 105/79 (88) 97 12/23/19 12:00 97.7 101 19 122/72 (89) 99 12/23/19 09:00 Room Air 12/23/19 08:00 97.4 106 20 102/62 (75) 95 12/23/19 04:00 98.2 92 18 103/67 (79) 95 12/23/19 00:00 98.4 69 18 100/59 (73) 95 12/22/19 21:25 97.9 12/22/19 20:45 97.9 100 20 115/74 (88) 95 12/22/19 20:21 Room Air 12/22/19 16:00 98.2 94 19 115/70 (85) 94 12/22/19 12:00 97.9 82 19 106/59 (75) 96 12/22/19 09:00 Room Air 12/22/19 08:00 97.7 87 19 101/60 (74) 95 Intake and Output 12/23/19 12/24/19 19:00 07:00 Intake Total 891.667 ml Output Total 1100 ml Balance -208.333 ml Intake Oral 800 ml IV Total 91.667 ml Output Urine Total 1100 ml Labs Test 12/22/19 06:10 12/22/19 15:15 12/23/19 06:00 12/23/19 17:10 White Blood Count 14.0 K/UL (4.8-10.8) 15.0 K/UL (4.8-10.8) Red Blood Count 3.44 M/UL (4.70-6.10) 3.64 M/UL (4.70-6.10) Hemoglobin 12.3 G/DL (14.2-18.0) 13.1 G/DL (14.2-18.0) Hematocrit 33.5 % (42.0-52.0) 35.8 % (42.0-52.0) Mean Corpuscular Volume 97 FL (80-99) 99 FL (80-99) Mean Corpuscular Hemoglobin 35.9 PG (27.0-31.0) 36.0 PG (27.0-31.0) Mean Corpuscular Hemoglobin Concent 36.9 G/DL (32.0-36.0) 36.5 G/DL (32.0-36.0) Red Cell Distribution Width 18.9 % (11.6-14.8) 20.4 % (11.6-14.8) Platelet Count 414 K/UL (150-450) 412 K/UL (150-450) Mean Platelet Volume 5.6 FL (6.5-10.1) 5.3 FL (6.5-10.1) Neutrophils (%) (Auto) 78.1 % (45.0-75.0) 78.6 % (45.0-75.0) Lymphocytes (%) (Auto) 10.4 % (20.0-45.0) 11.0 % (20.0-45.0) Monocytes (%) (Auto) 9.1 % (1.0-10.0) 8.1 % (1.0-10.0) Eosinophils (%) (Auto) 1.6 % (0.0-3.0) 1.7 % (0.0-3.0) Basophils (%) (Auto) 0.9 % (0.0-2.0) 0.7 % (0.0-2.0) Erythrocyte Sedimentation Rate 21 MM/HR (0-20) Sodium Level 136 MMOL/L (136-145) 136 MMOL/L (136-145) Potassium Level 3.8 MMOL/L (3.5-5.1) 4.4 MMOL/L (3.5-5.1) Chloride Level 102 MMOL/L (98-107) 100 MMOL/L (98-107) Carbon Dioxide Level 28 MMOL/L (21-32) 33 MMOL/L (21-32) Anion Gap 6 mmol/L (5-15) 3 mmol/L (5-15) Blood Urea Nitrogen 14 mg/dL (7-18) 15 mg/dL (7-18) Creatinine 1.0 MG/DL (0.55-1.30) 1.3 MG/DL (0.55-1.30) Estimat Glomerular Filtration Rate > 60 mL/min (>60) 56.3 mL/min (>60) Glucose Level 103 MG/DL (74-106) 105 MG/DL (74-106) Calcium Level 12.7 MG/DL (8.5-10.1) 13.0 MG/DL (8.5-10.1) C-Reactive Protein, Quantitative 34.0 mg/dL (0.00-0.90) Vancomycin Level Trough 4.6 ug/mL (5.0-12.0) 5.6 ug/mL (5.0-12.0) Phosphorus Level 2.6 MG/DL (2.5-4.9) Magnesium Level 1.7 MG/DL (1.8-2.4) Total Bilirubin 0.3 MG/DL (0.2-1.0) Aspartate Amino Transf (AST/SGOT) 15 U/L (15-37) Alanine Aminotransferase (ALT/SGPT) 8 U/L (12-78) Alkaline Phosphatase 96 U/L (46-116) Total Protein 7.8 G/DL (6.4-8.2) Albumin 2.2 G/DL (3.4-5.0) Globulin 5.6 g/dL Albumin/Globulin Ratio 0.4 (1.0-2.7) Height (Feet): 5 Height (Inches): 6.00 Weight (Pounds): 132 Objective Physical Exam Sp02 EP Interpretation: reviewed, normal General: no apparent distress, Chronically Ill Heent: normocephalic, atraumatic Respiratory: lungs clear, normal breath sounds Cardiovascular: normal peripheral pulses, regular rate Gastrointestinal: non tender, soft, non-distended, no guarding Genitourinary: other - Large area of necrosis noted in the genital region with purulent discharge, ++suprapub catheter Neurologic: alert, oriented x3 Skin: normal color, warm/dry Kleynberg,Mandeep L. MD Dec 24, 2019 06:48
--- NOTE | 2019-12-24 07:20 | NUR ---
nurse notes received patient sleeping but easily arousable,no sign of distress,no facial grimace noted on going IV ATB ,on fall precaution observed suprapubic cath in place,penile dressing clean dry and intact, plan of care was discussed needs reinforcement sam montejo
--- NOTE | 2019-12-24 07:34 | Urology Progress Note ---
Assessment/Plan Assessment/Plan: 1. History of urethral cancer, status post chemo and immunotherapy and radiation with previous debridement. 2. Urinary retention and a chronic suprapubic tube. 3. Probable neurogenic bladder. 4. UTI and colonization. 5. Hematuria. 6. Proteinuria. 7. Mild acute kidney injury. monitor clinically maintain SPT, plan to change soon hand irrigated and do PRN abx as ordered local wound care debridement PRN d/w Dr. Li f/u on blood cx Subjective Allergies: Coded Allergies: CODEINE (Verified Allergy, Unknown, 02/05/10) Subjective all noted, no new changes Objective Last 24 Hour Vital Signs Date Time Temp Pulse Resp B/P (MAP) Pulse Ox O2 Delivery O2 Flow Rate FiO2 12/24/19 04:00 97.7 92 16 150/61 (90) 93 12/24/19 00:00 97.1 93 18 96/59 (71) 94 12/23/19 21:00 Room Air 12/23/19 20:00 98.2 88 18 113/71 (85) 97 12/23/19 16:00 97.7 93 18 105/79 (88) 97 12/23/19 12:00 97.7 101 19 122/72 (89) 99 12/23/19 09:00 Room Air 12/23/19 08:00 97.4 106 20 102/62 (75) 95 Intake and Output 12/23/19 12/24/19 19:00 07:00 Intake Total 891.667 ml 200 ml Output Total 1100 ml 1400 ml Balance -208.333 ml -1200 ml Intake Oral 800 ml IV Total 91.667 ml Other 200 ml Output Urine Total 1100 ml 1400 ml Microbiology Date/Time Source Procedure Growth Status 12/21/19 16:45 Penis Gram Stain - Final Resulted 12/21/19 16:45 Wound Culture - Preliminary Gram Negative Bacillus 1 Gram Negative Bacillus 2 Gram Positive Cocci Resulted 12/20/19 10:20 Rectal Mucosa - Final NO CARBAPENEM-RESISTANT ENTEROBACTERI... Complete 12/19/19 16:25 Urine,Clean Catch Urine Culture - Final Enterobacter Cloacae Complex Complete 12/19/19 16:25 Blood Blood Culture - Preliminary NO GROWTH AFTER 4 DAYS Resulted Current Medications Medications (Trade) Dose Ordered Sig/Virginie Route PRN Reason Start Time Stop Time Status Last Admin Dose Admin Acetaminophen (Tylenol) 650 mg Q4H PRN ORAL fever 12/19/19 19:00 01/18/20 18:59 Acetaminophen/ Hydrocodone Bitart ([place] 10/325) 1 tab Q4H PRN ORAL Moderate Pain (Pain Scale 4-6) 12/23/19 15:00 12/30/19 14:59 Acetaminophen/ Hydrocodone Bitart ([place] 10/325) 2 tab Q4H PRN ORAL Severe Pain (Pain Scale 7-10) 12/23/19 15:00 12/30/19 14:59 12/24/19 06:00 Albuterol/ Ipratropium (Albuterol/ Ipratropium) 3 ml Q4H PRN HHN Shortness of Breath 12/23/19 15:00 12/28/19 14:59 Dextrose (Dextrose 50%) 25 ml Q30M PRN IV Hypoglycemia 12/19/19 19:00 03/18/20 18:59 Dextrose (Dextrose 50%) 50 ml Q30M PRN IV Hypoglycemia 12/19/19 19:00 03/18/20 18:59 Heparin Sodium (Porcine) (Heparin 5000 units/ml) 5,000 units EVERY 12 HOURS SUBQ 12/19/19 21:00 02/02/20 20:59 12/23/19 21:15 Meropenem 1 gm/ Sodium Chloride 55 ml @ 110 mls/hr Q8HR IVPB 12/22/19 15:00 12/27/19 14:59 12/24/19 06:00 Ondansetron HCl (Zofran) 4 mg Q6H PRN IVP Nausea & Vomiting 12/19/19 19:00 01/18/20 18:59 Patient Own Medication (Patient's Own Med) 1 ea DAILY ORAL 12/21/19 18:00 01/20/20 17:59 12/23/19 08:12 Polyethylene Glycol (Miralax) 17 gm DAILYPRN PRN ORAL Constipation 12/19/19 19:00 01/18/20 18:59 Temazepam (Restoril) 15 mg HSPRN PRN ORAL Insomnia 12/23/19 15:00 12/30/19 14:59 Vancomycin HCl (Vanco pharmacy to dose) 1 ea DAILY PRN MISC Per rx protocol 12/20/19 17:30 01/19/20 17:29 Vancomycin HCl 1 gm/Sodium Chloride 275 ml @ 183.708 mls/hr Q12HR@0800,1999 IVPB 12/23/19 20:00 12/28/19 19:59 12/23/19 21:14 Laboratory Tests 12/23/19 17:10: Vancomycin Level Trough 5.6 Height (Feet): 5 Height (Inches): 6.00 Weight (Pounds): 132 Objective exam stable Chas Larsen MD Dec 24, 2019 07:34
--- NOTE | 2019-12-24 07:41 | NUR ---
NURSE HAND-OFF: Important Events on Shift: Changed dressings, pain management Patient Status: stable Diet: regular Pending Orders: n/a Pending Results/Labs: cbc, bmp Pending MD notification: n/a Latest Vital Signs: Temperature 97.7 , Pulse 92 , B/P 150 /61 , Respiratory Rate 16 , O2 SAT 93 , Room Air, O2 Flow Rate 5.0 . Vital Sign Comment: stable Latest Rahman Fall Score: 35 Fall Risk: Medium Risk Safety Measures: Call light Within Reach, Bed Alarm Zone 1, Side Rails Side Rails x2, Bed position Low and Locked. Fall Precautions: Yellow Socks Patient Fall Education Report given to MADAN Shaffer.
[2019-12-24 08:20] VITALS: BP 120/80
[2019-12-24] MEDS: Vancomycin 1 GM in NS 275 ML IVPB SCH (08:29)
[2019-12-24] MEDS: SYMTUZA ORAL SCH (08:29)
[2019-12-24] MEDS: Heparin 5000 units/ml inj SUBQ SCH ×2 (08:36→21:56)
[2019-12-24 08:52] LABS: ANION GAP 6 mmol/L (5-15); BLOOD UREA NITROGEN 14 mg/dL (7-18); CALCIUM 12.4 MG/DL (8.5-10.1); CARBON DIOXIDE 28 MMOL/L (21-32); CHLORIDE 101 MMOL/L (98-107); POTASSIUM 3.6 MMOL/L (3.5-5.1); SODIUM 135 MMOL/L (136-145)
[2019-12-24 08:53] LABS: BASOPHILS % (AUTO) 0.5 % (0.0-2.0); EOSINOPHILS % (AUTO) 0.8 % (0.0-3.0); HEMATOCRIT 32.5 % (42.0-52.0); HEMOGLOBIN 12.4 G/DL (14.2-18.0); LYMPHOCYTES % (AUTO) 10.1 % (20.0-45.0); MEAN CORPUSCULAR VOLUME 98 FL (80-99); MONOCYTES % (AUTO) 9.4 % (1.0-10.0); NEUTROPHILS % (AUTO) 79.2 % (45.0-75.0); PLATELET COUNT 396 K/UL (150-450); RED BLOOD COUNT 3.33 M/UL (4.70-6.10); RED CELL DISTRIBUTION WIDTH 19.6 % (11.6-14.8)
--- NOTE | 2019-12-24 10:26 | NUR ---
RD ASSESSMENT & RECOMMENDATIONS SEE CARE ACTIVITY FOR COMPLETE ASSESSMENT DAILY ESTIMATED NEEDS: Needs based on Cancer, HIV/ 60kg 25-30 kcals/kg 0947-5511 total kcals 1-1.5 g protein/kg 60-90 g total protein 25-30 mL/kg 4619-2373 total fluid mLs NUTRITION DIAGNOSIS: Increased kcal/prot needs R/T catabolic dx, wound healing as evidenced by h/o urethral cancer, s/p chemotherapy, radiation, +HIV, admitted w/ penile wound necrosis. CURRENT DIET:Regular PO DIET RECOMMENDATIONS: REGULAR/ texture as tolerated + Ensure Enlive once daily ADDITIONAL RECOMMENDATIONS: * Calibrated bedscale wt * Monitor for any side effects from chemo/radiation -> denies any side effects at this time. * Monitor PO intake: variable at this time -> Ensure Enlive added, QD (chocolate flavor) for now per pt request * Monitor lytes, replete as needed (low mag)
[2019-12-24 12:00] VITALS: BP 114/67
--- NOTE | 2019-12-24 12:10 | Pulmonology Progress Note ---
Subjective ROS Limited/Unobtainable: No Constitutional: Reports: no symptoms HEENT: Repors: no symptoms Allergies: Coded Allergies: CODEINE (Verified Allergy, Unknown, 02/05/10) Objective Last 24 Hour Vital Signs Date Time Temp Pulse Resp B/P (MAP) Pulse Ox O2 Delivery O2 Flow Rate FiO2 12/24/19 08:25 Room Air 12/24/19 08:20 97.3 90 19 120/80 (93) 94 12/24/19 04:00 97.7 92 16 150/61 (90) 93 12/24/19 00:00 97.1 93 18 96/59 (71) 94 12/23/19 21:00 Room Air 12/23/19 20:00 98.2 88 18 113/71 (85) 97 12/23/19 16:00 97.7 93 18 105/79 (88) 97 Intake and Output 12/23/19 12/24/19 19:00 07:00 Intake Total 891.667 ml 200 ml Output Total 1100 ml 1400 ml Balance -208.333 ml -1200 ml Intake Oral 800 ml IV Total 91.667 ml Other 200 ml Output Urine Total 1100 ml 1400 ml General Appearance: cachetic HEENT: normocephalic, atraumatic Respiratory: chest wall non-tender, lungs clear Cardiovascular: normal peripheral pulses, normal rate, regular rhythm Abdomen: normal bowel sounds, soft, non tender Genitourinary: normal external genitalia Extremities: no cyanosis Skin: no rash 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 grossly normal Microbiology Date/Time Source Procedure Growth Status 12/21/19 16:45 Penis Gram Stain - Final Resulted 12/21/19 16:45 Wound Culture - Preliminary Pseudomonas Aeruginosa Escherichia Coli - Esbl Enterococcus Gallinarum Resulted Laboratory Tests 12/23/19 17:10: Vancomycin Level Trough 5.6 12/24/19 07:30: White Blood Count 15.0H, Red Blood Count 3.33L, Hemoglobin 12.4L, Hematocrit 32.5L, Mean Corpuscular Volume 98, Mean Corpuscular Hemoglobin 37.1H, Mean Corpuscular Hemoglobin Concent 38.0H, Red Cell Distribution Width 19.6H, Plat elet Count 396, Mean Platelet Volume 5.3L, Neutrophils (%) (Auto) 79.2H, Ly mphocytes (%) (Auto) 10.1L, Monocytes (%) (Auto) 9.4, Eosinophils (%) (Auto) 0.8, Basophils (%) (Auto) 0.5, Sodium Level 135L, Potassium Level 3.6, Chloride Level 101, Carbon Dioxide Level 28, Anion Gap 6, Blood Urea Nitrogen 14, Creatinine 1.0, Estimat Glomerular Filtration Rate > 60, Glucose Level 130H, Calcium Level 12.4H Current Medications Medications (Trade) Dose Ordered Sig/Virginie Route PRN Reason Start Time Stop Time Status Last Admin Dose Admin Acetaminophen (Tylenol) 650 mg Q4H PRN ORAL fever 12/19/19 19:00 01/18/20 18:59 Acetaminophen/ Hydrocodone Bitart ([place] 10/325) 1 tab Q4H PRN ORAL Moderate Pain (Pain Scale 4-6) 12/23/19 15:00 12/30/19 14:59 Acetaminophen/ Hydrocodone Bitart ([place] 10/325) 2 tab Q4H PRN ORAL Severe Pain (Pain Scale 7-10) 12/23/19 15:00 12/30/19 14:59 12/24/19 06:00 Albuterol/ Ipratropium (Albuterol/ Ipratropium) 3 ml Q4H PRN HHN Shortness of Breath 12/23/19 15:00 12/28/19 14:59 Dextrose (Dextrose 50%) 25 ml Q30M PRN IV Hypoglycemia 12/19/19 19:00 03/18/20 18:59 Dextrose (Dextrose 50%) 50 ml Q30M PRN IV Hypoglycemia 12/19/19 19:00 03/18/20 18:59 Heparin Sodium (Porcine) (Heparin 5000 units/ml) 5,000 units EVERY 12 HOURS SUBQ 12/19/19 21:00 02/02/20 20:59 12/24/19 08:36 Meropenem 1 gm/ Sodium Chloride 55 ml @ 110 mls/hr Q8HR IVPB 12/22/19 15:00 12/27/19 14:59 12/24/19 06:00 Ondansetron HCl (Zofran) 4 mg Q6H PRN IVP Nausea & Vomiting 12/19/19 19:00 01/18/20 18:59 Patient Own Medication (Patient's Own Med) 1 ea DAILY ORAL 11/9/20 18:00 01/20/20 17:59 12/24/19 08:29 Polyethylene Glycol (Miralax) 17 gm DAILYPRN PRN ORAL Constipation 12/19/19 19:00 01/18/20 18:59 Temazepam (Restoril) 15 mg HSPRN PRN ORAL Insomnia 12/23/19 15:00 12/30/19 14:59 Vancomycin HCl (Vanco pharmacy to dose) 1 ea DAILY PRN MISC Per rx protocol 12/20/19 17:30 01/19/20 17:29 Vancomycin HCl 1 gm/Sodium Chloride 275 ml @ 183.708 mls/hr Q12HR@0800,1999 IVPB 12/23/19 20:00 12/28/19 19:59 12/24/19 08:29 Assessment/Plan Problems: (1) Penile abscess (2) Catheter-associated urinary tract infection (3) Sepsis (4) Urethral cancer (5) Abscess Assessment/Plan getting better WBC still high might need amputation of penis Urine has GNR continue abx ID evaluation appreciated symptomatic treatment dvt prophylaxis. Jasbir Larsen MD Dec 24, 2019 12:10
[2019-12-24] MEDS ORDERED: Gentamicin Rx monitoring MISC PRN (13:00)
--- NOTE | 2019-12-24 13:01 | Infectious Diseases Prog Note ---
Assessment/Plan Assessment: UTI -u/a wbc 40/6-, nit +, leuk +2; ucx >100k ESBL e. clocae complex Penile necrotic wound infection- polymicrobial -wound cx ESBL E.coli, PsA ( R levaquin, I Meropenem), E, gallinarum (R vanco, S Amp) Afebrile Leukocytosis, increasing urethral CA dx'ed 2019 sp chemotherapy x 12 sessions and radiation x8 sessions and surgical intervention (follows at [facility]) hx of penile abscess HIV on Symtuza (dx'ed 20 yrs ago) former smoker (quit 8yrs ago) recurrent UTI on bactrim ppx urinary retention sp chronic suprapubic tube SNF resident ([facility]) Plan: -Switch empiric IV Vancomycin #6 to Dpatomycin -MEropenem #3 for ESBL -add Gentamycin as I PsA to Meropenem -12/21 SP Cefepime #4, Flagyl #2 -12/18 SP Meropenem x1 -f/u cx -Monitor CBC/CMP, temperatures -wound cx -Uro and Gen sx f/u -wound care per surgical team -cpk Thank you for consulting [facility]. Will continue to follow along with you. Discussed with RN. Subjective Allergies: Coded Allergies: CODEINE (Verified Allergy, Unknown, 02/05/10) afebrile wbc increasing Objective Last 24 Hour Vital Signs Date Time Temp Pulse Resp B/P (MAP) Pulse Ox O2 Delivery O2 Flow Rate FiO2 12/24/19 12:00 97.2 81 18 114/67 (83) 95 12/24/19 08:25 Room Air 12/24/19 08:20 97.3 90 19 120/80 (93) 94 12/24/19 04:00 97.7 92 16 150/61 (90) 93 12/24/19 00:00 97.1 93 18 96/59 (71) 94 12/23/19 21:00 Room Air 12/23/19 20:00 98.2 88 18 113/71 (85) 97 12/23/19 16:00 97.7 93 18 105/79 (88) 97 Height (Feet): 5 Height (Inches): 6.00 Weight (Pounds): 132 GENERAL: The patient is a well-developed and well-nourished male, in no apparent distress. HEENT: Eyes, pupils equal and responsive to light and accommodation. Extraocular movements are intact. NECK: Supple without lymphadenopathy. CHEST: Lungs are clear to auscultation bilaterally without wheezes or rales. CARDIOVASCULAR: Regular rate. S1, S2 are normal without murmurs, rubs, or gallops. ABDOMEN: Soft, nontender, and nondistended. Positive bowel sounds. No evidence of hepatosplenomegaly. Currently, no rebound or guarding noted. EXTREMITIES: Negative for clubbing, cyanosis, or edema. GEnital: necrotic lesion on penis shaft- malodorous and purulent discharge Microbiology Date/Time Source Procedure Growth Status 12/21/19 16:45 Penis Gram Stain - Final Resulted 12/21/19 16:45 Wound Culture - Preliminary Pseudomonas Aeruginosa Escherichia Coli - Esbl Enterococcus Gallinarum Resulted Laboratory Tests Test 12/23/19 17:10 12/24/19 07:30 Vancomycin Level Trough 5.6 ug/mL (5.0-12.0) White Blood Count 15.0 K/UL (4.8-10.8) H Red Blood Count 3.33 M/UL (4.70-6.10) L Hemoglobin 12.4 G/DL (14.2-18.0) L Hematocrit 32.5 % (42.0-52.0) L Mean Corpuscular Volume 98 FL (80-99) Mean Corpuscular Hemoglobin 37.1 PG (27.0-31.0) H Mean Corpuscular Hemoglobin Concent 38.0 G/DL (32.0-36.0) H Red Cell Distribution Width 19.6 % (11.6-14.8) H Platelet Count 396 K/UL (150-450) Mean Platelet Volume 5.3 FL (6.5-10.1) L Neutrophils (%) (Auto) 79.2 % (45.0-75.0) H Lymphocytes (%) (Auto) 10.1 % (20.0-45.0) L Monocytes (%) (Auto) 9.4 % (1.0-10.0) Eosinophils (%) (Auto) 0.8 % (0.0-3.0) Basophils (%) (Auto) 0.5 % (0.0-2.0) Sodium Level 135 MMOL/L (136-145) L Potassium Level 3.6 MMOL/L (3.5-5.1) Chloride Level 101 MMOL/L (98-107) Carbon Dioxide Level 28 MMOL/L (21-32) Anion Gap 6 mmol/L (5-15) Blood Urea Nitrogen 14 mg/dL (7-18) Creatinine 1.0 MG/DL (0.55-1.30) Estimat Glomerular Filtration Rate > 60 mL/min (>60) Glucose Level 130 MG/DL (74-106) H Calcium Level 12.4 MG/DL (8.5-10.1) H Current Medications Medications (Trade) Dose Ordered Sig/Virginie Route PRN Reason Start Time Stop Time Status Last Admin Dose Admin Acetaminophen (Tylenol) 650 mg Q4H PRN ORAL fever 12/19/19 19:00 01/18/20 18:59 Acetaminophen/ Hydrocodone Bitart ([place] 10/325) 1 tab Q4H PRN ORAL Moderate Pain (Pain Scale 4-6) 12/23/19 15:00 12/30/19 14:59 Acetaminophen/ Hydrocodone Bitart ([place] 10/325) 2 tab Q4H PRN ORAL Severe Pain (Pain Scale 7-10) 12/23/19 15:00 12/30/19 14:59 12/24/19 06:00 Albuterol/ Ipratropium (Albuterol/ Ipratropium) 3 ml Q4H PRN HHN Shortness of Breath 12/23/19 15:00 12/28/19 14:59 Dextrose (Dextrose 50%) 25 ml Q30M PRN IV Hypoglycemia 12/19/19 19:00 03/18/20 18:59 Dextrose (Dextrose 50%) 50 ml Q30M PRN IV Hypoglycemia 12/19/19 19:00 03/18/20 18:59 Heparin Sodium (Porcine) (Heparin 5000 units/ml) 5,000 units EVERY 12 HOURS SUBQ 12/19/19 21:00 02/02/20 20:59 12/24/19 08:36 Meropenem 1 gm/ Sodium Chloride 55 ml @ 110 mls/hr Q8HR IVPB 12/22/19 15:00 12/27/19 14:59 12/24/19 06:00 Ondansetron HCl (Zofran) 4 mg Q6H PRN IVP Nausea & Vomiting 12/19/19 19:00 01/18/20 18:59 Patient Own Medication (Patient's Own Med) 1 ea DAILY ORAL 12/21/19 18:00 01/20/20 17:59 12/24/19 08:29 Polyethylene Glycol (Miralax) 17 gm DAILYPRN PRN ORAL Constipation 12/19/19 19:00 01/18/20 18:59 Temazepam (Restoril) 15 mg HSPRN PRN ORAL Insomnia 12/23/19 15:00 12/30/19 14:59 Vancomycin HCl (Vanco pharmacy to dose) 1 ea DAILY PRN MISC Per rx protocol 12/20/19 17:30 01/19/20 17:29 Vancomycin HCl 1 gm/Sodium Chloride 275 ml @ 183.708 mls/hr Q12HR@0800,2000 IVPB 12/23/19 20:00 12/28/19 19:59 12/24/19 08:29 Margoth Rider M.D. Dec 24, 2019 13:01
[2019-12-24] MEDS ORDERED: Meropenem 2 GM in NS 55 ML IVPB SCH (14:00)
[2019-12-24] MEDS: Gentamicin inj 300 MG in NS 110 ML IVPB SCH (14:57)
--- NOTE | 2019-12-24 15:50 | Internal Med Progress Note ---
Subjective Physician Name Ron Enriquez Attending Physician Ron Enriquez MD Current Medications Medications (Trade) Dose Ordered Sig/Virginie Route PRN Reason Start Time Stop Time Status Last Admin Dose Admin Acetaminophen (Tylenol) 650 mg Q4H PRN ORAL fever 12/19/19 19:00 01/18/20 18:59 Acetaminophen/ Hydrocodone Bitart ([place] 10/325) 1 tab Q4H PRN ORAL Moderate Pain (Pain Scale 4-6) 12/23/19 15:00 12/30/19 14:59 12/24/19 13:16 Acetaminophen/ Hydrocodone Bitart ([place] 10/325) 2 tab Q4H PRN ORAL Severe Pain (Pain Scale 7-10) 12/23/19 15:00 12/30/19 14:59 12/24/19 06:00 Albuterol/ Ipratropium (Albuterol/ Ipratropium) 3 ml Q4H PRN HHN Shortness of Breath 12/23/19 15:00 12/28/19 14:59 Daptomycin 250 mg/ Sodium Chloride 55 ml @ 100 mls/hr Q24H IV 12/24/19 16:00 12/31/19 15:59 Dextrose (Dextrose 50%) 25 ml Q30M PRN IV Hypoglycemia 12/19/19 19:00 03/18/20 18:59 Dextrose (Dextrose 50%) 50 ml Q30M PRN IV Hypoglycemia 12/19/19 19:00 03/18/20 18:59 Gentamicin Protocol (Gentamicin pharmacy to dose) 1 ea DAILY PRN MISC Per rx protocol 12/24/19 13:00 01/23/20 12:59 Gentamicin Sulfate 300 mg/ Sodium Chloride 117.5 ml @ 117.5 mls/ hr Q24H IVPB 12/24/19 15:00 12/31/19 14:59 12/24/19 14:57 Heparin Sodium (Porcine) (Heparin 5000 units/ml) 5,000 units EVERY 12 HOURS SUBQ 12/19/19 21:00 02/02/20 20:59 12/24/19 08:36 Meropenem 2 gm/ Sodium Chloride 100 ml @ 200 mls/hr Q8HR IVPB 12/24/19 22:00 12/27/19 14:59 Ondansetron HCl (Zofran) 4 mg Q6H PRN IVP Nausea & Vomiting 12/19/19 19:00 01/18/20 18:59 Patient Own Medication (Patient's Own Med) 1 ea DAILY ORAL 12/21/19 18:00 01/20/20 17:59 12/24/19 08:29 Polyethylene Glycol (Miralax) 17 gm DAILYPRN PRN ORAL Constipation 12/19/19 19:00 01/18/20 18:59 Temazepam (Restoril) 15 mg HSPRN PRN ORAL Insomnia 12/23/19 15:00 12/30/19 14:59 Allergies: Coded Allergies: CODEINE (Verified Allergy, Unknown, 02/05/10) Subjective awake, alert, responsive, NAD, WBC: 15.0. Objective Last Vital Signs Date Time Temp Pulse Resp B/P (MAP) Pulse Ox O2 Delivery O2 Flow Rate FiO2 12/24/19 12:00 97.2 81 18 114/67 (83) 95 12/24/19 08:25 Room Air 12/19/19 16:21 5.0 28 Laboratory Tests Test 12/23/19 17:10 12/24/19 07:30 Vancomycin Level Trough 5.6 ug/mL (5.0-12.0) White Blood Count 15.0 K/UL (4.8-10.8) H Red Blood Count 3.33 M/UL (4.70-6.10) L Hemoglobin 12.4 G/DL (14.2-18.0) L Hematocrit 32.5 % (42.0-52.0) L Mean Corpuscular Volume 98 FL (80-99) Mean Corpuscular Hemoglobin 37.1 PG (27.0-31.0) H Mean Corpuscular Hemoglobin Concent 38.0 G/DL (32.0-36.0) H Red Cell Distribution Width 19.6 % (11.6-14.8) H Platelet Count 396 K/UL (150-450) Mean Platelet Volume 5.3 FL (6.5-10.1) L Neutrophils (%) (Auto) 79.2 % (45.0-75.0) H Lymphocytes (%) (Auto) 10.1 % (20.0-45.0) L Monocytes (%) (Auto) 9.4 % (1.0-10.0) Eosinophils (%) (Auto) 0.8 % (0.0-3.0) Basophils (%) (Auto) 0.5 % (0.0-2.0) Sodium Level 135 MMOL/L (136-145) L Potassium Level 3.6 MMOL/L (3.5-5.1) Chloride Level 101 MMOL/L (98-107) Carbon Dioxide Level 28 MMOL/L (21-32) Anion Gap 6 mmol/L (5-15) Blood Urea Nitrogen 14 mg/dL (7-18) Creatinine 1.0 MG/DL (0.55-1.30) Estimat Glomerular Filtration Rate > 60 mL/min (>60) Glucose Level 130 MG/DL (74-106) H Calcium Level 12.4 MG/DL (8.5-10.1) H Microbiology Date/Time Source Procedure Growth Status 12/21/19 16:45 Penis Gram Stain - Final Resulted 12/21/19 16:45 Wound Culture - Preliminary Pseudomonas Aeruginosa Escherichia Coli - Esbl Enterococcus Gallinarum Resulted Intake and Output 12/23/19 12/24/19 19:00 07:00 Intake Total 891.667 ml 200 ml Output Total 1100 ml 1400 ml Balance -208.333 ml -1200 ml Intake Oral 800 ml IV Total 91.667 ml Other 200 ml Output Urine Total 1100 ml 1400 ml Objective GENERAL: awake, alert, responsive, chronic ill appearance, in no apparent distress. HEENT: Eyes, pupils equal and responsive to light and accommodation. Extraocular movements are intact. NECK: Supple without lymphadenopathy. CHEST: Lungs are clear to auscultation bilaterally without wheezes or rales. CARDIOVASCULAR: Regular rate. S1, S2 are normal without murmurs or gallops. ABDOMEN: Soft, nontender, and nondistended. Positive bowel sounds. EXTREMITIES: Negative for clubbing, cyanosis, or edema. RECTAL AND GENITAL: There is a large fungating mass over the penile and scrotal region. suprapubic cath intact. NEUROLOGICAL: Cranial nerves II through XII are grossly intact without focal deficits. Motor strength is 5/5 bilaterally intact. Assessment/Plan Assessment/Plan ASSESSMENT: This is a 59-year-old male with: 1. Recurrent Urinary tract infection=E. Coli ESBL, Enterococci, Pseudomonas 2. Penile abscess. 3. HIV. 4. Urethral cancer. 5. Sepsis TREATMENT: 1. Urinary tract infection/penile abscess. Antibiotics=Meropenem, Daptomycin, Gentamicin. Infectious Disease consulltation = Dr. Rider. 2. HIV. Continue Symtuza as above. 3. Penile/urethral cancer. Oncology consultation = Dr. Mandeep Horta. Urology consultation = Dr. Chas Larsen. Code status: Full code DVT prophylaxis: Heparin SQ. Monitor labs and cultures Ron Enriquez MD Dec 24, 2019 15:50
[2019-12-24 15:55] VITALS: BP 116/72
[2019-12-24] MEDS: DAPTOmycin 250 MG in NS 55 ML IV SCH (16:00)
--- NOTE | 2019-12-24 16:07 | NUR ---
CASE MANAGEMENT:REVIEW SI;PENILE NECROTIC WOUND INFECTION URETHRAL CANCER. HYPERCALCEMIA. SEPSIS. 98.1 93 19 96/59 93% ON RA WBC 15.0 NA 135 CA 12.4 IS;MEROPENEM IV Q8 DAPTOMYCIN IV Q24 GENTAMICIN IV Q24 VANCOMYCIN IV NORCO PO Q4 HEPARIN SUBQ Q12 MED SURG STATUS DCP;FROM [facility] [place]
--- NOTE | 2019-12-24 18:10 | Surgery Progress Note ---
Surgery Progress Note Subjective Symptoms: other Objective Last 24 Hour Vital Signs Date Time Temp Pulse Resp B/P (MAP) Pulse Ox O2 Delivery O2 Flow Rate FiO2 12/24/19 15:55 98.1 72 19 116/72 (87) 95 12/24/19 12:00 97.2 81 18 114/67 (83) 95 12/24/19 08:25 Room Air 12/24/19 08:20 97.3 90 19 120/80 (93) 94 12/24/19 04:00 97.7 92 16 150/61 (90) 93 12/24/19 00:00 97.1 93 18 96/59 (71) 94 12/23/19 21:00 Room Air 12/23/19 20:00 98.2 88 18 113/71 (85) 97 I&O Intake and Output 12/23/19 12/24/19 19:00 07:00 Intake Total 891.667 ml 200 ml Output Total 1100 ml 1400 ml Balance -208.333 ml -1200 ml Intake Oral 800 ml IV Total 91.667 ml Other 200 ml Output Urine Total 1100 ml 1400 ml Dressing: saturated Cardiovascular: RSR Respiratory: decreased breath sounds Abdomen: non-tender, present bowel sounds Extremities: no edema, no tenderness, no cyanosis Laboratory Tests Test 12/24/19 07:30 White Blood Count 15.0 K/UL (4.8-10.8) H Red Blood Count 3.33 M/UL (4.70-6.10) L Hemoglobin 12.4 G/DL (14.2-18.0) L Hematocrit 32.5 % (42.0-52.0) L Mean Corpuscular Volume 98 FL (80-99) Mean Corpuscular Hemoglobin 37.1 PG (27.0-31.0) H Mean Corpuscular Hemoglobin Concent 38.0 G/DL (32.0-36.0) H Red Cell Distribution Width 19.6 % (11.6-14.8) H Platelet Count 396 K/UL (150-450) Mean Platelet Volume 5.3 FL (6.5-10.1) L Neutrophils (%) (Auto) 79.2 % (45.0-75.0) H Lymphocytes (%) (Auto) 10.1 % (20.0-45.0) L Monocytes (%) (Auto) 9.4 % (1.0-10.0) Eosinophils (%) (Auto) 0.8 % (0.0-3.0) Basophils (%) (Auto) 0.5 % (0.0-2.0) Sodium Level 135 MMOL/L (136-145) L Potassium Level 3.6 MMOL/L (3.5-5.1) Chloride Level 101 MMOL/L (98-107) Carbon Dioxide Level 28 MMOL/L (21-32) Anion Gap 6 mmol/L (5-15) Blood Urea Nitrogen 14 mg/dL (7-18) Creatinine 1.0 MG/DL (0.55-1.30) Estimat Glomerular Filtration Rate > 60 mL/min (>60) Glucose Level 130 MG/DL (74-106) H Calcium Level 12.4 MG/DL (8.5-10.1) H Plan Problems: (1) Penile abscess Assessment & Plan: 61-year-old male with known urethral cancer status post chemoradiation presented with worsening wound necrosis and potential infection of the site. Patient seen prior penis necrosis falling off now remaining soft tissue in the malignancy region also with necrotic nonviable tissue identified. Drainage is serosanguineous at times sometimes serious and does not seem significant purulent. The cellulitis is minimal. Patient's labs noted. Given patient's history condition immunocompromise status recommend IV antibiotics. I discussed the patient and considerations for debriding some of the nonviable tissue though this will not in any way improve his cancer stated could help with local wound care. Patient expressed understanding we will continue to follow with local care and provide as necessary. No drainage of abscess identified at this time we will monitor thank you f/u with primary onc as per heme labs noted on rx wounds and slough/necrotic tissue debridement at bedside penis is fully necrotic and hanging off. will discuss consideration of operative debridement including penis. not recommended at bedside given likely bleeding with debridement. (2) Urethral cancer (3) Abscess (4) Sepsis (5) Catheter-associated urinary tract infection Romain Li Dec 24, 2019 18:10
--- NOTE | 2019-12-24 18:52 | NUR ---
NURSE HAND-OFF: Important Events on Shift:[Dressing changed, pain management] Patient Status: [no change] Diet: [regular] Pending Orders: [labs in am] Pending Results/Labs:[none] Pending MD notification:[none] Latest Vital Signs: Temperature 98.1 , Pulse 72 , B/P 116 /72 , Respiratory Rate 19 , O2 SAT 95 , Room Air, O2 Flow Rate 5.0 . Vital Sign Comment: [stable] Latest Rahman Fall Score: 35 Fall Risk: Medium Risk Safety Measures: Call light Within Reach, Bed Alarm Zone 1, Side Rails Side Rails x2, Bed position Low and Locked. Fall Precautions: Yellow Socks Patient Fall Education Report given to [noc]. Addendum: 12/24/19 at 1932 by AMBER CARNES RN RN NURSE HAND-OFF: Important Events on Shift:[Dressing changed, pain management] Patient Status: [no change] Diet: [regular diet poor po intake] Pending Orders: [labs in am] Pending Results/Labs:[none] Pending MD notification:[none] Latest Vital Signs: Temperature 98.1 , Pulse 72 , B/P 116 /72 , Respiratory Rate 19 , O2 SAT 95 , Room Air, O2 Flow Rate 5.0 . Vital Sign Comment: [stable] Latest Rahman Fall Score: 35 Fall Risk: Medium Risk Safety Measures: Call light Within Reach, Bed Alarm Zone 1, Side Rails Side Rails x2, Bed position Low and Locked. Fall Precautions: Yellow Socks Patient Fall Education Report given to [MAYITO HAGER accordingly]. sam montejo
[2019-12-24 20:00] VITALS: BP 109/76
--- NOTE | 2019-12-24 20:00 | NUR ---
NURSE NOTES: Patient in bed,awake and alert x2. On room air with no signs of distress or SOB. IV intact and patent. Suprapubic cath noted. Bed locked and in lowest position. Call light in reach. Will continue plan of care.
[2019-12-25] VITALS: BP 103/65
[2019-12-25 04:00] VITALS: BP 112/70
--- NOTE | 2019-12-25 05:35 | NUR ---
NURSE NOTES: Stage 2 wound noted on the sacral. WC plan updated. Photos taken and uploaded. filter machine operator made aware.
[2019-12-25 05:58] LABS: BASOPHILS % (AUTO) 0.5 % (0.0-2.0); EOSINOPHILS % (AUTO) 1.3 % (0.0-3.0); HEMATOCRIT 35.8 % (42.0-52.0); HEMOGLOBIN 12.3 G/DL (14.2-18.0); LYMPHOCYTES % (AUTO) 14.3 % (20.0-45.0); MEAN CORPUSCULAR VOLUME 96 FL (80-99); MONOCYTES % (AUTO) 9.3 % (1.0-10.0); NEUTROPHILS % (AUTO) 74.6 % (45.0-75.0); PLATELET COUNT 376 K/UL (150-450); RED BLOOD COUNT 3.72 M/UL (4.70-6.10); RED CELL DISTRIBUTION WIDTH 16.7 % (11.6-14.8); WHITE BLOOD COUNT 12.9 K/UL (4.8-10.8)
[2019-12-25 06:58] LABS: CREATINE KINASE 11 U/L (26-308)
--- NOTE | 2019-12-25 07:22 | NUR ---
NURSE HAND-OFF: Important Events on Shift: Stage 2 sacral wound Patient Status: Stable Diet: Reg Pending Orders: N/A Pending Results/Labs: CBC, CK Pending MD notification: N/A Latest Vital Signs: Temperature 98.1 , Pulse 85 , B/P 112 /70 , Respiratory Rate 18 , O2 SAT 95 , Room Air, O2 Flow Rate 5.0 . Vital Sign Comment: N/A Latest Rahman Fall Score: 35 Fall Risk: Medium Risk Safety Measures: Call light Within Reach, Bed Alarm Zone 1, Side Rails Side Rails x2, Bed position Low and Locked. Fall Precautions: Yellow Socks Patient Fall Education Report given to MADAN Bearden.
--- NOTE | 2019-12-25 07:25 | NUR ---
nurse notes received patient awake, alert, oriented x2 with period of confusion notes, reality orientation provided ,no sign of distress,HL patent , suprapubic cath in place,penile dressing clean dry and intact, fall precaution observed 4 P's in progress , both side rails , call light w/n reach , plan of care was discussed needs reinforcement, will continue to monitor patient condition sam montejo
[2019-12-25 08:39] VITALS: BP 139/81
[2019-12-25] MEDS: SYMTUZA ORAL SCH (08:47)
[2019-12-25] MEDS: HYDROcodone/Acetamin 10/325 tab ORAL PRN ×2 (08:49→15:53)
[2019-12-25] MEDS: Heparin 5000 units/ml inj SUBQ SCH ×2 (09:02→21:10)
--- NOTE | 2019-12-25 09:05 | Hematology/Onc Progress Note ---
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 Leonard at [facility], per patient is his med onc --> dw 12/21 Dr. Leonard [facility] further f/u --> labs have been reviewed, hold off on tumor markers --> has been seen by Dr. Larsen here and recs noted debridement at some point --> 12/22 s/p debridement at bedside # Leukocytosis likely due to Penile abscess --> requires abx as per id vanc/flagyl/cefepime-->vanc/chelsea --> wbc 13-->14-->13 # Urinary retention with chronic suprapubic tube. --> per uro, surg care # Probable neurogenic bladder. # Urinary tract infection and colonization. # Hematuria. --> improved # Dvt ppx --> hep sq Appreciate consultation and conner RN Subjective Constitutional: Denies: no symptoms, chills, fever, malaise, weakness, other HEENT: Denies: no symptoms, eye pain, blurred vision, tearing, double vision, ear pain, ear discharge, nose pain, nose congestion, throat pain, throat swelling, mouth pain, mouth swelling, other Cardiovascular: Denies: no symptoms, chest pain, edema, irregular heart rate, lightheadedness, palpitations, syncope, other Respiratory: Denies: no symptoms, cough, shortness of breath, SOB with excertion, SOB at rest, sputum, wheezing, other Gastrointestinal/Abdominal: Denies: no symptoms, abdomen distended, abdominal pain, black stools, tarry stools, blood in stool, constipated, diarrhea, difficulty swallowing, nausea, poor appetite, poor fluid intake, rectal bleeding , vomiting, other Genitourinary: Denies: no symptoms, burning, discharge, frequency, flank pain, hematuria, incontinence, pain, urgency, other Neurologic/Psychiatric: Denies: no symptoms, anxiety, depressed, emotional problems, headache, numbness, paresthesia, pre-existing deficit, seizure, tingling, tremors, weakness, other Endocrine: Denies: no symptoms, excessive sweating, flushing, intolerance to cold, intolerance to heat, increased hunger, increased thirst, increased urine, unexplained weight gain, unexplained weight loss, other Allergies: Coded Allergies: CODEINE (Verified Allergy, Unknown, 02/05/10) Subjective 12/21 is on abx vanc/flagyl, cefepime, on hep, suprapub catheter functional 12/22 no major events, debridement at some pt, dw Dr. Leonard yesterday [facility] 12/23 underwent bedside debridement yesterday, feeling better, dressing in place 12/24 meds reviewed, meds noted, no bleeding, dw rn Objective Objective Current Medications Medications (Trade) Dose Ordered Sig/Virginie Route PRN Reason Start Time Stop Time Status Last Admin Dose Admin Acetaminophen (Tylenol) 650 mg Q4H PRN ORAL fever 12/19/19 19:00 01/18/20 18:59 Acetaminophen/ Hydrocodone Bitart ([place] 10/325) 1 tab Q4H PRN ORAL Moderate Pain (Pain Scale 4-6) 12/23/19 15:00 12/30/19 14:59 12/24/19 13:16 Acetaminophen/ Hydrocodone Bitart ([place] 10/325) 2 tab Q4H PRN ORAL Severe Pain (Pain Scale 7-10) 12/23/19 15:00 12/30/19 14:59 12/25/19 08:49 Albuterol/ Ipratropium (Albuterol/ Ipratropium) 3 ml Q4H PRN HHN Shortness of Breath 12/23/19 15:00 12/28/19 14:59 Daptomycin 250 mg/ Sodium Chloride 55 ml @ 100 mls/hr Q24H IV 12/24/19 16:00 12/31/19 15:59 12/24/19 16:00 Dextrose (Dextrose 50%) 25 ml Q30M PRN IV Hypoglycemia 12/19/19 19:00 03/18/20 18:59 Dextrose (Dextrose 50%) 50 ml Q30M PRN IV Hypoglycemia 12/19/19 19:00 03/18/20 18:59 Gentamicin Protocol (Gentamicin pharmacy to dose) 1 ea DAILY PRN MISC Per rx protocol 12/24/19 13:00 01/23/20 12:59 Gentamicin Sulfate 300 mg/ Sodium Chloride 117.5 ml @ 117.5 mls/ hr Q24H IVPB 12/24/19 15:00 12/31/19 14:59 12/24/19 14:57 Heparin Sodium (Porcine) (Heparin 5000 units/ml) 5,000 units EVERY 12 HOURS SUBQ 12/19/19 21:00 02/02/20 20:59 12/25/19 09:02 Meropenem 2 gm/ Sodium Chloride 100 ml @ 200 mls/hr Q8HR IVPB 12/24/19 22:00 12/27/19 14:59 12/25/19 05:54 Ondansetron HCl (Zofran) 4 mg Q6H PRN IVP Nausea & Vomiting 12/19/19 19:00 01/18/20 18:59 Patient Own Medication (Patient's Own Med) 1 ea DAILY ORAL 12/21/19 18:00 01/20/20 17:59 12/25/19 08:47 Polyethylene Glycol (Miralax) 17 gm DAILYPRN PRN ORAL Constipation 12/19/19 19:00 01/18/20 18:59 Temazepam (Restoril) 15 mg HSPRN PRN ORAL Insomnia 12/23/19 15:00 12/30/19 14:59 12/24/19 22:05 Last 24 Hour Vital Signs Date Time Temp Pulse Resp B/P (MAP) Pulse Ox O2 Delivery O2 Flow Rate FiO2 12/25/19 08:39 98.0 93 20 139/81 (100) 97 12/25/19 07:58 94 18 95 Room Air 12/25/19 04:00 98.1 85 18 112/70 (84) 95 12/25/19 00:00 98.2 89 18 103/65 (78) 93 12/24/19 21:00 Room Air 12/24/19 20:00 97.9 90 18 109/76 (87) 97 12/24/19 15:55 98.1 72 19 116/72 (87) 95 12/24/19 12:00 97.2 81 18 114/67 (83) 95 12/24/19 08:25 Room Air 12/24/19 08:20 97.3 90 19 120/80 (93) 94 12/24/19 04:00 97.7 92 16 150/61 (90) 93 12/24/19 00:00 97.1 93 18 96/59 (71) 94 12/23/19 21:00 Room Air 12/23/19 20:00 98.2 88 18 113/71 (85) 97 12/23/19 16:00 97.7 93 18 105/79 (88) 97 12/23/19 12:00 97.7 101 19 122/72 (89) 99 Intake and Output 12/24/19 12/25/19 19:00 07:00 Intake Total 1047.500 ml 360 ml Output Total 720 ml 1100 ml Balance 327.500 ml -740 ml Intake Oral 600 ml IV Total 447.500 ml Other 360 ml Output Urine Total 720 ml 1100 ml Labs Test 12/22/19 15:15 12/23/19 06:00 12/23/19 17:10 12/24/19 07:30 Vancomycin Level Trough 4.6 ug/mL (5.0-12.0) 5.6 ug/mL (5.0-12.0) White Blood Count 15.0 K/UL (4.8-10.8) 15.0 K/UL (4.8-10.8) Red Blood Count 3.64 M/UL (4.70-6.10) 3.33 M/UL (4.70-6.10) Hemoglobin 13.1 G/DL (14.2-18.0) 12.4 G/DL (14.2-18.0) Hematocrit 35.8 % (42.0-52.0) 32.5 % (42.0-52.0) Mean Corpuscular Volume 99 FL (80-99) 98 FL (80-99) Mean Corpuscular Hemoglobin 36.0 PG (27.0-31.0) 37.1 PG (27.0-31.0) Mean Corpuscular Hemoglobin Concent 36.5 G/DL (32.0-36.0) 38.0 G/DL (32.0-36.0) Red Cell Distribution Width 20.4 % (11.6-14.8) 19.6 % (11.6-14.8) Platelet Count 412 K/UL (150-450) 396 K/UL (150-450) Mean Platelet Volume 5.3 FL (6.5-10.1) 5.3 FL (6.5-10.1) Neutrophils (%) (Auto) 78.6 % (45.0-75.0) 79.2 % (45.0-75.0) Lymphocytes (%) (Auto) 11.0 % (20.0-45.0) 10.1 % (20.0-45.0) Monocytes (%) (Auto) 8.1 % (1.0-10.0) 9.4 % (1.0-10.0) Eosinophils (%) (Auto) 1.7 % (0.0-3.0) 0.8 % (0.0-3.0) Basophils (%) (Auto) 0.7 % (0.0-2.0) 0.5 % (0.0-2.0) Sodium Level 136 MMOL/L (136-145) 135 MMOL/L (136-145) Potassium Level 4.4 MMOL/L (3.5-5.1) 3.6 MMOL/L (3.5-5.1) Chloride Level 100 MMOL/L (98-107) 101 MMOL/L (98-107) Carbon Dioxide Level 33 MMOL/L (21-32) 28 MMOL/L (21-32) Anion Gap 3 mmol/L (5-15) 6 mmol/L (5-15) Blood Urea Nitrogen 15 mg/dL (7-18) 14 mg/dL (7-18) Creatinine 1.3 MG/DL (0.55-1.30) 1.0 MG/DL (0.55-1.30) Estimat Glomerular Filtration Rate 56.3 mL/min (>60) > 60 mL/min (>60) Glucose Level 105 MG/DL (74-106) 130 MG/DL (74-106) Calcium Level 13.0 MG/DL (8.5-10.1) 12.4 MG/DL (8.5-10.1) Phosphorus Level 2.6 MG/DL (2.5-4.9) Magnesium Level 1.7 MG/DL (1.8-2.4) Total Bilirubin 0.3 MG/DL (0.2-1.0) Aspartate Amino Transf (AST/SGOT) 15 U/L (15-37) Alanine Aminotransferase (ALT/SGPT) 8 U/L (12-78) Alkaline Phosphatase 96 U/L (46-116) Total Protein 7.8 G/DL (6.4-8.2) Albumin 2.2 G/DL (3.4-5.0) Globulin 5.6 g/dL Albumin/Globulin Ratio 0.4 (1.0-2.7) Test 12/25/19 04:58 White Blood Count 12.9 K/UL (4.8-10.8) Red Blood Count 3.72 M/UL (4.70-6.10) Hemoglobin 12.3 G/DL (14.2-18.0) Hematocrit 35.8 % (42.0-52.0) Mean Corpuscular Volume 96 FL (80-99) Mean Corpuscular Hemoglobin 33.0 PG (27.0-31.0) Mean Corpuscular Hemoglobin Concent 34.3 G/DL (32.0-36.0) Red Cell Distribution Width 16.7 % (11.6-14.8) Platelet Count 376 K/UL (150-450) Mean Platelet Volume 5.1 FL (6.5-10.1) Neutrophils (%) (Auto) 74.6 % (45.0-75.0) Lymphocytes (%) (Auto) 14.3 % (20.0-45.0) Monocytes (%) (Auto) 9.3 % (1.0-10.0) Eosinophils (%) (Auto) 1.3 % (0.0-3.0) Basophils (%) (Auto) 0.5 % (0.0-2.0) Total Creatine Kinase 11 U/L (26-308) Random Gentamicin Level 0.4 ug/mL Height (Feet): 5 Height (Inches): 6.00 Weight (Pounds): 132 Objective Physical Exam Sp02 EP Interpretation: reviewed, normal General: no apparent distress, Chronically Ill Heent: normocephalic, atraumatic Respiratory: lungs clear, normal breath sounds Cardiovascular: normal peripheral pulses, regular rate Gastrointestinal: non tender, soft, non-distended, no guarding Genitourinary: other - Large area of necrosis noted in the genital region with purulent discharge, ++suprapub catheter Neurologic: alert, oriented x3 Skin: normal color, warm/dry Mandeep Horta MD Dec 25, 2019 09:05
--- NOTE | 2019-12-25 10:59 | Urology Progress Note ---
Assessment/Plan Assessment/Plan: 1. History of urethral cancer, status post chemo and immunotherapy and radiation with previous debridement. 2. Urinary retention and a chronic suprapubic tube. 3. Probable neurogenic bladder. 4. UTI and colonization. 5. Hematuria. 6. Proteinuria. 7. Mild acute kidney injury. monitor clinically maintain SPT, plan to change soon hand irrigated and do PRN abx as ordered local wound care debridement PRN d/w Dr. Li Subjective Allergies: Coded Allergies: CODEINE (Verified Allergy, Unknown, 02/05/10) Subjective all noted, no new changes Objective Last 24 Hour Vital Signs Date Time Temp Pulse Resp B/P (MAP) Pulse Ox O2 Delivery O2 Flow Rate FiO2 12/25/19 08:50 Room Air 12/25/19 08:39 98.0 93 20 139/81 (100) 97 12/25/19 07:58 94 18 95 Room Air 21 12/25/19 04:00 98.1 85 18 112/70 (84) 95 12/25/19 00:00 98.2 89 18 103/65 (78) 93 12/24/19 21:00 Room Air 12/24/19 20:00 97.9 90 18 109/76 (87) 97 12/24/19 15:55 98.1 72 19 116/72 (87) 95 12/24/19 12:00 97.2 81 18 114/67 (83) 95 Intake and Output 12/24/19 12/25/19 19:00 07:00 Intake Total 1047.500 ml 360 ml Output Total 720 ml 1100 ml Balance 327.500 ml -740 ml Intake Oral 600 ml IV Total 447.500 ml Other 360 ml Output Urine Total 720 ml 1100 ml Microbiology Date/Time Source Procedure Growth Status 12/21/19 16:45 Penis Gram Stain - Final Complete 12/21/19 16:45 Wound Culture - Final Pseudomonas Aeruginosa Escherichia Coli - Esbl Enterococcus Gallinarum Complete 12/20/19 10:20 Rectal Mucosa - Final NO CARBAPENEM-RESISTANT ENTEROBACTERI... Complete 12/19/19 16:25 Urine,Clean Catch Urine Culture - Final Enterobacter Cloacae Complex Complete 12/19/19 16:25 Blood Blood Culture - Final NO GROWTH AFTER 5 DAYS Complete Current Medications Medications (Trade) Dose Ordered Sig/Virginie Route PRN Reason Start Time Stop Time Status Last Admin Dose Admin Acetaminophen (Tylenol) 650 mg Q4H PRN ORAL fever 12/19/19 19:00 01/18/20 18:59 Acetaminophen/ Hydrocodone Bitart ([place] 10/325) 1 tab Q4H PRN ORAL Moderate Pain (Pain Scale 4-6) 12/23/19 15:00 12/30/19 14:59 12/24/19 13:16 Acetaminophen/ Hydrocodone Bitart ([place] 10/325) 2 tab Q4H PRN ORAL Severe Pain (Pain Scale 7-10) 12/23/19 15:00 12/30/19 14:59 12/25/19 08:49 Albuterol/ Ipratropium (Albuterol/ Ipratropium) 3 ml Q4H PRN HHN Shortness of Breath 12/23/19 15:00 12/28/19 14:59 Daptomycin 250 mg/ Sodium Chloride 55 ml @ 100 mls/hr Q24H IV 12/24/19 16:00 12/31/19 15:59 12/24/19 16:00 Dextrose (Dextrose 50%) 25 ml Q30M PRN IV Hypoglycemia 12/19/19 19:00 03/18/20 18:59 Dextrose (Dextrose 50%) 50 ml Q30M PRN IV Hypoglycemia 12/19/19 19:00 03/18/20 18:59 Gentamicin Protocol (Gentamicin pharmacy to dose) 1 ea DAILY PRN MISC Per rx protocol 12/24/19 13:00 01/23/20 12:59 Gentamicin Sulfate 300 mg/ Sodium Chloride 117.5 ml @ 117.5 mls/ hr Q24H IVPB 12/24/19 15:00 12/31/19 14:59 12/24/19 14:57 Heparin Sodium (Porcine) (Heparin 5000 units/ml) 5,000 units EVERY 12 HOURS SUBQ 12/19/19 21:00 02/02/20 20:59 12/25/19 09:02 Meropenem 2 gm/ Sodium Chloride 100 ml @ 200 mls/hr Q8HR IVPB 12/24/19 22:00 12/27/19 14:59 12/25/19 05:54 Ondansetron HCl (Zofran) 4 mg Q6H PRN IVP Nausea & Vomiting 12/19/19 19:00 01/18/20 18:59 Patient Own Medication (Patient's Own Med) 1 ea DAILY ORAL 12/21/19 18:00 01/20/20 17:59 12/25/19 08:47 Polyethylene Glycol (Miralax) 17 gm DAILYPRN PRN ORAL Constipation 12/19/19 19:00 01/18/20 18:59 Temazepam (Restoril) 15 mg HSPRN PRN ORAL Insomnia 12/23/19 15:00 12/30/19 14:59 12/24/19 22:05 Laboratory Tests 12/25/19 04:58: White Blood Count 12.9H, Red Blood Count 3.72L, Hemoglobin 12.3L, Hematocrit 35.8L, Mean Corpuscular Volume 96, Mean Corpuscular Hemoglobin 33.0H, Mean Corpuscular Hemoglobin Concent 34.3, Red Cell Distribution Width 16.7H, Platelet Count 376, Mean Platelet Volume 5.1L, Neutrophils (%) (Auto) 74.6, Lymphocytes (%) (Auto) 14.3L, Monocytes (%) (Auto) 9.3, Eosinophils (%) (Auto) 1.3, Basophils (%) (Auto) 0.5, Total Creatine Kinase 11L, Random Gentamicin Level 0.4 Height (Feet): 5 Height (Inches): 6.00 Weight (Pounds): 132 Objective exam stable Chas Larsen MD Dec 25, 2019 10:59
[2019-12-25 12:08] VITALS: BP 104/68
--- NOTE | 2019-12-25 12:42 | Infectious Diseases Prog Note ---
Assessment/Plan Assessment: UTI -u/a wbc 40/6-, nit +, leuk +2; ucx >100k ESBL e. clocae complex Penile necrotic wound infection- polymicrobial -wound cx ESBL E.coli, PsA ( R levaquin, I Meropenem), E, gallinarum (R vanco, S Amp) Afebrile Leukocytosis, improving urethral CA dx'ed 2019 sp chemotherapy x 12 sessions and radiation x8 sessions and surgical intervention (follows at [facility]) hx of penile abscess HIV on Symtuza (dx'ed 20 yrs ago) former smoker (quit 8yrs ago) recurrent UTI on bactrim ppx urinary retention sp chronic suprapubic tube SNF resident ([facility]) Plan: -Daptomycin #2 -MEropenem #4 for ESBL -add Gentamycin #2 as I PsA to Meropenem -12/23 SP IV Vancomycin #6 -12/21 SP Cefepime #4, Flagyl #2 -12/18 SP Meropenem x1 -f/u cx -Monitor CBC/CMP, temperatures -wound cx -Uro and Gen sx f/u -wound care per surgical team Thank you for consulting [facility]. Will continue to follow along with you. Discussed with RN. Subjective Allergies: Coded Allergies: CODEINE (Verified Allergy, Unknown, 02/05/10) afebrile wbc improving Objective Last 24 Hour Vital Signs Date Time Temp Pulse Resp B/P (MAP) Pulse Ox O2 Delivery O2 Flow Rate FiO2 12/25/19 12:08 97.9 77 18 104/68 (80) 94 12/25/19 08:50 Room Air 12/25/19 08:39 98.0 93 20 139/81 (100) 97 12/25/19 07:58 94 18 95 Room Air 21 12/25/19 04:00 98.1 85 18 112/70 (84) 95 12/25/19 00:00 98.2 89 18 103/65 (78) 93 12/24/19 21:00 Room Air 12/24/19 20:00 97.9 90 18 109/76 (87) 97 12/24/19 15:55 98.1 72 19 116/72 (87) 95 Height (Feet): 5 Height (Inches): 6.00 Weight (Pounds): 132 GENERAL: The patient is a well-developed and well-nourished male, in no apparent distress. HEENT: Eyes, pupils equal and responsive to light and accommodation. Extraocular movements are intact. NECK: Supple without lymphadenopathy. CHEST: Lungs are clear to auscultation bilaterally without wheezes or rales. CARDIOVASCULAR: Regular rate. S1, S2 are normal without murmurs, rubs, or gallops. ABDOMEN: Soft, nontender, and nondistended. Positive bowel sounds. No evidence of hepatosplenomegaly. Currently, no rebound or guarding noted. EXTREMITIES: Negative for clubbing, cyanosis, or edema. GEnital: necrotic lesion on penis shaft- malodorous and purulent discharge Laboratory Tests Test 12/25/19 04:58 White Blood Count 12.9 K/UL (4.8-10.8) H Red Blood Count 3.72 M/UL (4.70-6.10) L Hemoglobin 12.3 G/DL (14.2-18.0) L Hematocrit 35.8 % (42.0-52.0) L Mean Corpuscular Volume 96 FL (80-99) Mean Corpuscular Hemoglobin 33.0 PG (27.0-31.0) H Mean Corpuscular Hemoglobin Concent 34.3 G/DL (32.0-36.0) Red Cell Distribution Width 16.7 % (11.6-14.8) H Platelet Count 376 K/UL (150-450) Mean Platelet Volume 5.1 FL (6.5-10.1) L Neutrophils (%) (Auto) 74.6 % (45.0-75.0) Lymphocytes (%) (Auto) 14.3 % (20.0-45.0) L Monocytes (%) (Auto) 9.3 % (1.0-10.0) Eosinophils (%) (Auto) 1.3 % (0.0-3.0) Basophils (%) (Auto) 0.5 % (0.0-2.0) Total Creatine Kinase 11 U/L (26-308) L Random Gentamicin Level 0.4 ug/mL Current Medications Medications (Trade) Dose Ordered Sig/Virginie Route PRN Reason Start Time Stop Time Status Last Admin Dose Admin Acetaminophen (Tylenol) 650 mg Q4H PRN ORAL fever 12/19/19 19:00 01/18/20 18:59 Acetaminophen/ Hydrocodone Bitart ([place] 10/325) 1 tab Q4H PRN ORAL Moderate Pain (Pain Scale 4-6) 12/23/19 15:00 12/30/19 14:59 12/24/19 13:16 Acetaminophen/ Hydrocodone Bitart ([place] 10/325) 2 tab Q4H PRN ORAL Severe Pain (Pain Scale 7-10) 12/23/19 15:00 12/30/19 14:59 12/25/19 08:49 Albuterol/ Ipratropium (Albuterol/ Ipratropium) 3 ml Q4H PRN HHN Shortness of Breath 12/23/19 15:00 12/28/19 14:59 Daptomycin 250 mg/ Sodium Chloride 55 ml @ 100 mls/hr Q24H IV 12/24/19 16:00 12/31/19 15:59 12/24/19 16:00 Dextrose (Dextrose 50%) 25 ml Q30M PRN IV Hypoglycemia 12/19/19 19:00 03/18/20 18:59 Dextrose (Dextrose 50%) 50 ml Q30M PRN IV Hypoglycemia 12/19/19 19:00 03/18/20 18:59 Gentamicin Protocol (Gentamicin pharmacy to dose) 1 ea DAILY PRN MISC Per rx protocol 12/24/19 13:00 01/23/20 12:59 Gentamicin Sulfate 300 mg/ Sodium Chloride 117.5 ml @ 117.5 mls/ hr Q24H IVPB 12/24/19 15:00 12/31/19 14:59 12/24/19 14:57 Heparin Sodium (Porcine) (Heparin 5000 units/ml) 5,000 units EVERY 12 HOURS SUBQ 12/19/19 21:00 02/02/20 20:59 12/25/19 09:02 Meropenem 2 gm/ Sodium Chloride 100 ml @ 200 mls/hr Q8HR IVPB 12/24/19 22:00 12/27/19 14:59 12/25/19 05:54 Ondansetron HCl (Zofran) 4 mg Q6H PRN IVP Nausea & Vomiting 12/19/19 19:00 01/18/20 18:59 Patient Own Medication (Patient's Own Med) 1 ea DAILY ORAL 12/21/19 18:00 01/20/20 17:59 12/25/19 08:47 Polyethylene Glycol (Miralax) 17 gm DAILYPRN PRN ORAL Constipation 12/19/19 19:00 01/18/20 18:59 Temazepam (Restoril) 15 mg HSPRN PRN ORAL Insomnia 12/23/19 15:00 12/30/19 14:59 12/24/19 22:05 Margoth Rider M.D. Dec 25, 2019 12:42
--- NOTE | 2019-12-25 12:47 | NUR ---
CASE MANAGEMENT:REVIEW SI;PENILE NECROTIC WOUND INFECTION URETHRAL CANCER. HYPERCALCEMIA. SEPSIS. 98.2 93 20 139/81 94% ON RA IS;MEROPENEM IV Q8 DAPTOMYCIN IV Q24 GENTAMICIN IV Q24 NORCO PO Q4 PRN HEPARIN SUBQ Q12 MED SURG STATUS DCP;FROM [facility] [place]
--- NOTE | 2019-12-25 14:16 | Internal Med Progress Note ---
Subjective Physician Name Ron Enriquez Attending Physician Ron Enriquez MD Current Medications Medications (Trade) Dose Ordered Sig/Virginie Route PRN Reason Start Time Stop Time Status Last Admin Dose Admin Acetaminophen (Tylenol) 650 mg Q4H PRN ORAL fever 12/19/19 19:00 01/18/20 18:59 Acetaminophen/ Hydrocodone Bitart ([place] 10/325) 1 tab Q4H PRN ORAL Moderate Pain (Pain Scale 4-6) 12/23/19 15:00 12/30/19 14:59 12/24/19 13:16 Acetaminophen/ Hydrocodone Bitart ([place] 10/325) 2 tab Q4H PRN ORAL Severe Pain (Pain Scale 7-10) 12/23/19 15:00 12/30/19 14:59 12/25/19 08:49 Albuterol/ Ipratropium (Albuterol/ Ipratropium) 3 ml Q4H PRN HHN Shortness of Breath 12/23/19 15:00 12/28/19 14:59 Daptomycin 250 mg/ Sodium Chloride 55 ml @ 100 mls/hr Q24H IV 12/24/19 16:00 12/31/19 15:59 12/24/19 16:00 Dextrose (Dextrose 50%) 25 ml Q30M PRN IV Hypoglycemia 12/19/19 19:00 03/18/20 18:59 Dextrose (Dextrose 50%) 50 ml Q30M PRN IV Hypoglycemia 12/19/19 19:00 03/18/20 18:59 Gentamicin Protocol (Gentamicin pharmacy to dose) 1 ea DAILY PRN MISC Per rx protocol 12/24/19 13:00 01/23/20 12:59 Gentamicin Sulfate 300 mg/ Sodium Chloride 117.5 ml @ 117.5 mls/ hr Q24H IVPB 12/24/19 15:00 12/31/19 14:59 12/24/19 14:57 Heparin Sodium (Porcine) (Heparin 5000 units/ml) 5,000 units EVERY 12 HOURS SUBQ 12/19/19 21:00 02/02/20 20:59 12/25/19 09:02 Meropenem 2 gm/ Sodium Chloride 100 ml @ 200 mls/hr Q8HR IVPB 12/24/19 22:00 12/27/19 14:59 12/25/19 13:39 Ondansetron HCl (Zofran) 4 mg Q6H PRN IVP Nausea & Vomiting 12/19/19 19:00 01/18/20 18:59 Patient Own Medication (Patient's Own Med) 1 ea DAILY ORAL 12/21/19 18:00 01/20/20 17:59 12/25/19 08:47 Polyethylene Glycol (Miralax) 17 gm DAILYPRN PRN ORAL Constipation 12/19/19 19:00 01/18/20 18:59 Temazepam (Restoril) 15 mg HSPRN PRN ORAL Insomnia 12/23/19 15:00 12/30/19 14:59 12/24/19 22:05 Allergies: Coded Allergies: CODEINE (Verified Allergy, Unknown, 02/05/10) Subjective awake, alert, responsive, NAD, WBC: 12.9. Objective Last Vital Signs Date Time Temp Pulse Resp B/P (MAP) Pulse Ox O2 Delivery O2 Flow Rate FiO2 12/25/19 12:08 97.9 77 18 104/68 (80) 94 12/25/19 08:50 Room Air 12/25/19 07:58 21 12/19/19 16:21 5.0 Laboratory Tests Test 12/25/19 04:58 White Blood Count 12.9 K/UL (4.8-10.8) H Red Blood Count 3.72 M/UL (4.70-6.10) L Hemoglobin 12.3 G/DL (14.2-18.0) L Hematocrit 35.8 % (42.0-52.0) L Mean Corpuscular Volume 96 FL (80-99) Mean Corpuscular Hemoglobin 33.0 PG (27.0-31.0) H Mean Corpuscular Hemoglobin Concent 34.3 G/DL (32.0-36.0) Red Cell Distribution Width 16.7 % (11.6-14.8) H Platelet Count 376 K/UL (150-450) Mean Platelet Volume 5.1 FL (6.5-10.1) L Neutrophils (%) (Auto) 74.6 % (45.0-75.0) Lymphocytes (%) (Auto) 14.3 % (20.0-45.0) L Monocytes (%) (Auto) 9.3 % (1.0-10.0) Eosinophils (%) (Auto) 1.3 % (0.0-3.0) Basophils (%) (Auto) 0.5 % (0.0-2.0) Total Creatine Kinase 11 U/L (26-308) L Random Gentamicin Level 0.4 ug/mL Intake and Output 0 12/24/19 12/25/19 19:00 07:00 Intake Total 1047.500 ml 360 ml Output Total 720 ml 1100 ml Balance 327.500 ml -740 ml Intake Oral 600 ml IV Total 447.500 ml Other 360 ml Output Urine Total 720 ml 1100 ml Objective GENERAL: awake, alert, responsive, chronic ill appearance, in no apparent distress. HEENT: Eyes, pupils equal and responsive to light and accommodation. Extraocular movements are intact. NECK: Supple without lymphadenopathy. CHEST: Lungs are clear to auscultation bilaterally without wheezes or rales. CARDIOVASCULAR: Regular rate. S1, S2 are normal without murmurs or gallops. ABDOMEN: Soft, nontender, and nondistended. Positive bowel sounds. EXTREMITIES: Negative for clubbing, cyanosis, or edema. RECTAL AND GENITAL: Large fungating mass over the penile and scrotal region. suprapubic cath intact. NEUROLOGICAL: Cranial nerves II through XII are grossly intact without focal deficits. Motor strength is 5/5 bilaterally intact. Assessment/Plan Assessment/Plan ASSESSMENT: This is a 59-year-old male with: 1. Recurrent Urinary tract infection=E. Coli ESBL, Enterococci, Pseudomonas 2. Penile abscess. 3. HIV. 4. Urethral cancer. 5. Sepsis TREATMENT: 1. Urinary tract infection/penile abscess. Antibiotics=Meropenem, Daptomycin, Gentamicin. Infectious Disease consulltation = Dr. Rider. 2. HIV. Continue Symtuza as above. 3. Penile/urethral cancer. Oncology consultation = Dr. Mandeep Horta. Urology consultation = Dr. Chas Larsen. Code status: Full code DVT prophylaxis: Heparin SQ. Monitor labs and cultures Ron Enriquez MD Dec 25, 2019 14:15
[2019-12-25] MEDS: Gentamicin inj 300 MG in NS 110 ML IVPB SCH (14:37)
--- NOTE | 2019-12-25 14:44 | Surgery Progress Note ---
Surgery Progress Note Subjective Additional Comments no acute events no complaints no n/v/f/c comfortable Objective Last 24 Hour Vital Signs Date Time Temp Pulse Resp B/P (MAP) Pulse Ox O2 Delivery O2 Flow Rate FiO2 12/25/19 12:08 97.9 77 18 104/68 (80) 94 12/25/19 08:50 Room Air 12/25/19 08:39 98.0 93 20 139/81 (100) 97 12/25/19 07:58 94 18 95 Room Air 21 12/25/19 04:00 98.1 85 18 112/70 (84) 95 12/25/19 00:00 98.2 89 18 103/65 (78) 93 12/24/19 21:00 Room Air 12/24/19 20:00 97.9 90 18 109/76 (87) 97 12/24/19 15:55 98.1 72 19 116/72 (87) 95 I&O Intake and Output 12/24/19 12/25/19 19:00 07:00 Intake Total 1047.500 ml 360 ml Output Total 720 ml 1100 ml Balance 327.500 ml -740 ml Intake Oral 600 ml IV Total 447.500 ml Other 360 ml Output Urine Total 720 ml 1100 ml Dressing: saturated Cardiovascular: RSR Respiratory: decreased breath sounds Abdomen: non-tender, present bowel sounds Extremities: no edema, no tenderness, no cyanosis Laboratory Tests Test 12/25/19 04:58 White Blood Count 12.9 K/UL (4.8-10.8) H Red Blood Count 3.72 M/UL (4.70-6.10) L Hemoglobin 12.3 G/DL (14.2-18.0) L Hematocrit 35.8 % (42.0-52.0) L Mean Corpuscular Volume 96 FL (80-99) Mean Corpuscular Hemoglobin 33.0 PG (27.0-31.0) H Mean Corpuscular Hemoglobin Concent 34.3 G/DL (32.0-36.0) Red Cell Distribution Width 16.7 % (11.6-14.8) H Platelet Count 376 K/UL (150-450) Mean Platelet Volume 5.1 FL (6.5-10.1) L Neutrophils (%) (Auto) 74.6 % (45.0-75.0) Lymphocytes (%) (Auto) 14.3 % (20.0-45.0) L Monocytes (%) (Auto) 9.3 % (1.0-10.0) Eosinophils (%) (Auto) 1.3 % (0.0-3.0) Basophils (%) (Auto) 0.5 % (0.0-2.0) Total Creatine Kinase 11 U/L (26-308) L Random Gentamicin Level 0.4 ug/mL Plan Problems: (1) Penile abscess Assessment & Plan: 61-year-old male with known urethral cancer status post chemoradiation presented with worsening wound necrosis and potential infection of the site. Patient seen prior penis necrosis falling off now remaining soft tissue in the malignancy region also with necrotic nonviable tissue identified. Drainage is serosanguineous at times sometimes serious and does not seem significant purulent. The cellulitis is minimal. Patient's labs noted. Given patient's history condition immunocompromise status recommend IV antibiotics. I discussed the patient and considerations for debriding some of the nonviable tissue though this will not in any way improve his cancer stated could help with local wound care. Patient expressed understanding we will continue to follow with local care and provide as necessary. No drainage of abscess identified at this time we will monitor thank you f/u with primary onc as per heme labs noted on rx wounds and slough/necrotic tissue debridement at bedside penis is fully necrotic and hanging off. will discuss consideration of operative debridement including penis. not recommended at bedside given likely bleeding with debridement. (2) Urethral cancer (3) Abscess (4) Sepsis (5) Catheter-associated urinary tract infection Romain Li Dec 25, 2019 14:43
[2019-12-25 15:28] VITALS: BP 115/74
[2019-12-25] MEDS: DAPTOmycin 250 MG in NS 55 ML IV SCH (15:52)
--- NOTE | 2019-12-25 19:21 | NUR ---
NURSE HAND-OFF: Important Events on Shift:[pain meds, dressing changed turn q2 h for comfort and good circulation] Patient Status: [no change] Diet: [regular poor po intake] Pending Orders: [labs in am] Pending Results/Labs:[none] Pending MD notification:[none] Latest Vital Signs: Temperature 98.2 , Pulse 90 , B/P 115 /74 , Respiratory Rate 18 , O2 SAT 96 , Room Air, O2 Flow Rate 5.0 . Vital Sign Comment: [stable] Latest Rahman Fall Score: 35 Fall Risk: Medium Risk Safety Measures: Call light Within Reach, Bed Alarm Zone 1, Side Rails Side Rails x2, Bed position Low and Locked. Fall Precautions: Yellow Socks Patient Fall Education high risk for fall / decubitus Report given to [MS MAYITO HAGER].
--- NOTE | 2019-12-25 19:37 | NUR ---
NURSE NOTES: Patient in bed, sleeping but easily arousable. On room air with no signs of distress or SOB. IV intact and patent. Suprapubic cath noted. Bed locked and in lowest position. Call light in reach. Will continue plan of care.
[2019-12-25 20:00] VITALS: BP 113/67
[2019-12-26] VITALS: BP 111/70
[2019-12-26 04:00] VITALS: BP 108/67
--- NOTE | 2019-12-26 06:33 | NUR ---
NURSE HAND-OFF: Important Events on Shift: No events Patient Status: Stable Diet: Reg Pending Orders: N/A Pending Results/Labs: CBC Pending MD notification: N/A Latest Vital Signs: Temperature 99.1 , Pulse 92 , B/P 108 /67 , Respiratory Rate 16 , O2 SAT 93 , Room Air, O2 Flow Rate 5.0 . Vital Sign Comment: N/A Latest Rahman Fall Score: 35 Fall Risk: Medium Risk Safety Measures: Call light Within Reach, Bed Alarm Zone 1, Side Rails Side Rails x2, Bed position Low and Locked. Fall Precautions: Regis Brady Patient Fall Education Addendum: 12/26/19 at 0739 by WILFREDO EDMOND RN Report given to MADAN Tatum
--- NOTE | 2019-12-26 07:25 | NUR ---
NURSE NOTES: Received report from MADAN Devi. Patient seen in bed eating breakfast, AAOx4, able to make needs known, bed bound. Patient is on room air, breathing is even and unlabored with no SOB noted at this time. Patient noted to have penile abscess draining foul odor fluid, RN put 4x4 for drainage collection. Previous shift endorsed that patient is post I&D. Suprapubic catheter noted. IV site patent and intact. BEd is marcos and placed in lowest position with bed alarm on. Will continue to monitor
[2019-12-26 08:00] VITALS: BP 124/80
[2019-12-26] MEDS: Heparin 5000 units/ml inj SUBQ SCH ×2 (08:09→21:16)
[2019-12-26 08:55] LABS: BASOPHILS % (AUTO) 0.4 % (0.0-2.0); EOSINOPHILS % (AUTO) 0.9 % (0.0-3.0); HEMOGLOBIN 12.7 G/DL (14.2-18.0); MEAN CORPUSCULAR VOLUME 97 FL (80-99); MONOCYTES % (AUTO) 9.3 % (1.0-10.0); NEUTROPHILS % (AUTO) 80.4 % (45.0-75.0); PLATELET COUNT 377 K/UL (150-450); RED CELL DISTRIBUTION WIDTH 20.2 % (11.6-14.8); WHITE BLOOD COUNT 17.3 K/UL (4.8-10.8)
[2019-12-26] MEDS: SYMTUZA ORAL SCH (09:16)
[2019-12-26] MEDS: HYDROcodone/Acetamin 10/325 tab ORAL PRN ×2 (09:17→17:49)
--- NOTE | 2019-12-26 10:35 | Urology Progress Note ---
Assessment/Plan Assessment/Plan: 1. History of urethral cancer, status post chemo and immunotherapy and radiation with previous debridement. 2. Urinary retention and a chronic suprapubic tube. 3. Probable neurogenic bladder. 4. UTI and colonization. 5. Hematuria. 6. Proteinuria. 7. Mild acute kidney injury. monitor clinically maintain SPT I personally removed old SPT and placed new 16F cath hand irrigated and do PRN abx as ordered local wound care debridement PRN d/w Dr. Li Subjective Allergies: Coded Allergies: CODEINE (Verified Allergy, Unknown, 02/05/10) Subjective all noted, no new changes Objective Last 24 Hour Vital Signs Date Time Temp Pulse Resp B/P (MAP) Pulse Ox O2 Delivery O2 Flow Rate FiO2 12/26/19 09:00 Room Air 12/26/19 08:00 97.6 100 20 124/80 (95) 95 12/26/19 04:00 99.1 92 16 108/67 (81) 93 12/26/19 00:00 98.7 98 16 111/70 (84) 94 12/25/19 20:05 Room Air 12/25/19 20:00 97.9 84 16 113/67 (82) 96 12/25/19 19:09 90 18 96 Room Air 21 12/25/19 15:28 98.2 96 20 115/74 (88) 100 12/25/19 12:08 97.9 77 18 104/68 (80) 94 Intake and Output 12/25/19 12/26/19 19:00 07:00 Intake Total 992.5 ml Output Total 1000 ml Balance -7.5 ml Intake Oral 720 ml IV Total 272.5 ml Output Urine Total 1000 ml Microbiology Date/Time Source Procedure Growth Status 12/21/19 16:45 Penis Gram Stain - Final Complete 12/21/19 16:45 Wound Culture - Final Pseudomonas Aeruginosa Escherichia Coli - Esbl Enterococcus Gallinarum Complete 12/20/19 10:20 Rectal Mucosa - Final NO CARBAPENEM-RESISTANT ENTEROBACTERI... Complete 12/19/19 16:25 Urine,Clean Catch Urine Culture - Final Enterobacter Cloacae Complex Complete 12/19/19 16:25 Blood Blood Culture - Final NO GROWTH AFTER 5 DAYS Complete Current Medications Medications (Trade) Dose Ordered Sig/Virginie Route PRN Reason Start Time Stop Time Status Last Admin Dose Admin Acetaminophen (Tylenol) 650 mg Q4H PRN ORAL fever 12/19/19 19:00 01/18/20 18:59 Acetaminophen/ Hydrocodone Bitart ([place] 10/325) 1 tab Q4H PRN ORAL Moderate Pain (Pain Scale 4-6) 12/23/19 15:00 12/30/19 14:59 12/24/19 13:16 Acetaminophen/ Hydrocodone Bitart ([place] 10/325) 2 tab Q4H PRN ORAL Severe Pain (Pain Scale 7-10) 12/23/19 15:00 12/30/19 14:59 12/26/19 09:17 Albuterol/ Ipratropium (Albuterol/ Ipratropium) 3 ml Q4H PRN HHN Shortness of Breath 12/23/19 15:00 12/28/19 14:59 Daptomycin 250 mg/ Sodium Chloride 55 ml @ 100 mls/hr Q24H IV 12/24/19 16:00 12/31/19 15:59 12/25/19 15:52 Dextrose (Dextrose 50%) 25 ml Q30M PRN IV Hypoglycemia 12/19/19 19:00 03/18/20 18:59 Dextrose (Dextrose 50%) 50 ml Q30M PRN IV Hypoglycemia 12/19/19 19:00 03/18/20 18:59 Gentamicin Protocol (Gentamicin pharmacy to dose) 1 ea DAILY PRN MISC Per rx protocol 12/24/19 13:00 01/23/20 12:59 Gentamicin Sulfate 300 mg/ Sodium Chloride 117.5 ml @ 117.5 mls/ hr Q24H IVPB 12/24/19 15:00 12/31/19 14:59 12/25/19 14:37 Heparin Sodium (Porcine) (Heparin 5000 units/ml) 5,000 units EVERY 12 HOURS SUBQ 12/19/19 21:00 02/02/20 20:59 12/26/19 08:09 Meropenem 2 gm/ Sodium Chloride 100 ml @ 200 mls/hr Q8HR IVPB 12/26/19 14:00 12/31/19 13:59 Ondansetron HCl (Zofran) 4 mg Q6H PRN IVP Nausea & Vomiting 12/19/19 19:00 01/18/20 18:59 Patient Own Medication (Patient's Own Med) 1 ea DAILY ORAL 12/21/19 18:00 01/20/20 17:59 12/26/19 09:16 Polyethylene Glycol (Miralax) 17 gm DAILYPRN PRN ORAL Constipation 12/19/19 19:00 01/18/20 18:59 Temazepam (Restoril) 15 mg HSPRN PRN ORAL Insomnia 12/23/19 15:00 12/30/19 14:59 12/24/19 22:05 Laboratory Tests 12/26/19 07:55: White Blood Count 17.3H, Red Blood Count 3.50L, Hemoglobin 12.7L, Hematocrit 34.0L, Mean Corpuscular Volume 97, Mean Corpuscular Hemoglobin 36.1H, Mean Corpuscular Hemoglobin Concent 37.2H, Red Cell Distribution Width 20.2H, Platelet Count 377, Mean Platelet Volume 5.3L, Neutrophils (%) (Auto) 80.4H, Lymphocytes (%) (Auto) 9.0L, Monocytes (%) (Auto) 9.3, Eosinophils (%) (Auto) 0.9, Basophils (%) (Auto) 0.4 Height (Feet): 5 Height (Inches): 6.00 Weight (Pounds): 132 Objective exam stable granulation tissue Chas Larsen MD Dec 26, 2019 10:35
--- NOTE | 2019-12-26 10:37 | Infectious Diseases Prog Note ---
Assessment/Plan Assessment: UTI -u/a wbc 40/6-, nit +, leuk +2; ucx >100k ESBL e. clocae complex Penile necrotic wound infection- polymicrobial -wound cx ESBL E.coli, PsA ( R levaquin, I Meropenem), E, gallinarum (R vanco, S Amp) Afebrile Leukocytosis, increased urethral CA dx'ed 2019 sp chemotherapy x 12 sessions and radiation x8 sessions and surgical intervention (follows at [facility]) hx of penile abscess HIV on Symtuza (dx'ed 20 yrs ago) former smoker (quit 8yrs ago) recurrent UTI on bactrim ppx urinary retention sp chronic suprapubic tube SNF resident ([facility]) Plan: -Daptomycin #3 -MEropenem #5 for ESBL - Gentamycin #3 as I PsA to Meropenem -12/23 SP IV Vancomycin #6 -12/21 SP Cefepime #4, Flagyl #2 -12/18 SP Meropenem x1 -f/u cx -Monitor CBC/CMP, temperatures -wound cx -Uro and Gen sx f/u : penis is fully necrotic and hanging off. will discuss consideration of operative debridement including penis. not recommended at beds michael given likely bleeding with debridement. -wound care per surgical team Thank you for consulting [facility]. Will continue to follow along with you. Discussed with RN. Subjective Allergies: Coded Allergies: CODEINE (Verified Allergy, Unknown, 02/05/10) wbc increased to 17 today Objective Last 24 Hour Vital Signs Date Time Temp Pulse Resp B/P (MAP) Pulse Ox O2 Delivery O2 Flow Rate FiO2 12/26/19 09:00 Room Air 12/26/19 08:00 97.6 100 20 124/80 (95) 95 12/26/19 04:00 99.1 92 16 108/67 (81) 93 12/26/19 00:00 98.7 98 16 111/70 (84) 94 12/25/19 20:05 Room Air 12/25/19 20:00 97.9 84 16 113/67 (82) 96 12/25/19 19:09 90 18 96 Room Air 21 12/25/19 15:28 98.2 96 20 115/74 (88) 100 12/25/19 12:08 97.9 77 18 104/68 (80) 94 Height (Feet): 5 Height (Inches): 6.00 Weight (Pounds): 132 HEENT: anicteric Respiratory/Chest: normal breath sounds Cardiovascular: regular rhythm Abdomen: no organomegaly Laboratory Tests Test 12/26/19 07:55 White Blood Count 17.3 K/UL (4.8-10.8) H Red Blood Count 3.50 M/UL (4.70-6.10) L Hemoglobin 12.7 G/DL (14.2-18.0) L Hematocrit 34.0 % (42.0-52.0) L Mean Corpuscular Volume 97 FL (80-99) Mean Corpuscular Hemoglobin 36.1 PG (27.0-31.0) H Mean Corpuscular Hemoglobin Concent 37.2 G/DL (32.0-36.0) H Red Cell Distribution Width 20.2 % (11.6-14.8) H Platelet Count 377 K/UL (150-450) Mean Platelet Volume 5.3 FL (6.5-10.1) L Neutrophils (%) (Auto) 80.4 % (45.0-75.0) H Lymphocytes (%) (Auto) 9.0 % (20.0-45.0) L Monocytes (%) (Auto) 9.3 % (1.0-10.0) Eosinophils (%) (Auto) 0.9 % (0.0-3.0) Basophils (%) (Auto) 0.4 % (0.0-2.0) Current Medications Medications (Trade) Dose Ordered Sig/Virginie Route PRN Reason Start Time Stop Time Status Last Admin Dose Admin Acetaminophen (Tylenol) 650 mg Q4H PRN ORAL fever 12/19/19 19:00 01/18/20 18:59 Acetaminophen/ Hydrocodone Bitart ([place] 10/325) 1 tab Q4H PRN ORAL Moderate Pain (Pain Scale 4-6) 12/23/19 15:00 12/30/19 14:59 12/24/19 13:16 Acetaminophen/ Hydrocodone Bitart ([place] 10/325) 2 tab Q4H PRN ORAL Severe Pain (Pain Scale 7-10) 12/23/19 15:00 12/30/19 14:59 12/26/19 09:17 Albuterol/ Ipratropium (Albuterol/ Ipratropium) 3 ml Q4H PRN HHN Shortness of Breath 12/23/19 15:00 12/28/19 14:59 Daptomycin 250 mg/ Sodium Chloride 55 ml @ 100 mls/hr Q24H IV 12/24/19 16:00 12/31/19 15:59 12/25/19 15:52 Dextrose (Dextrose 50%) 25 ml Q30M PRN IV Hypoglycemia 12/19/19 19:00 03/18/20 18:59 Dextrose (Dextrose 50%) 50 ml Q30M PRN IV Hypoglycemia 12/19/19 19:00 03/18/20 18:59 Gentamicin Protocol (Gentamicin pharmacy to dose) 1 ea DAILY PRN MISC Per rx protocol 12/24/19 13:00 01/23/20 12:59 Gentamicin Sulfate 300 mg/ Sodium Chloride 117.5 ml @ 117.5 mls/ hr Q24H IVPB 12/24/19 15:00 12/31/19 14:59 12/25/19 14:37 Heparin Sodium (Porcine) (Heparin 5000 units/ml) 5,000 units EVERY 12 HOURS SUBQ 12/19/19 21:00 02/02/20 20:59 12/26/19 08:09 Meropenem 2 gm/ Sodium Chloride 100 ml @ 200 mls/hr Q8HR IVPB 12/26/19 14:00 12/31/19 13:59 Ondansetron HCl (Zofran) 4 mg Q6H PRN IVP Nausea & Vomiting 12/19/19 19:00 01/18/20 18:59 Patient Own Medication (Patient's Own Med) 1 ea DAILY ORAL 12/21/19 18:00 01/20/20 17:59 12/26/19 09:16 Polyethylene Glycol (Miralax) 17 gm DAILYPRN PRN ORAL Constipation 12/19/19 19:00 01/18/20 18:59 Temazepam (Restoril) 15 mg HSPRN PRN ORAL Insomnia 12/23/19 15:00 12/30/19 14:59 12/24/19 22:05 Dutch Knight MD Dec 26, 2019 10:37
[2019-12-26 12:00] VITALS: BP 119/83
--- NOTE | 2019-12-26 14:50 | Surgery Progress Note ---
Surgery Progress Note Subjective Additional Comments does not want further debridement at this time states feels much better wound less foul odor after last clean ing Objective Last 24 Hour Vital Signs Date Time Temp Pulse Resp B/P (MAP) Pulse Ox O2 Delivery O2 Flow Rate FiO2 12/26/19 12:00 97.3 99 19 119/83 (95) 98 12/26/19 11:57 Room Air 12/26/19 09:00 Room Air 12/26/19 08:00 97.6 100 20 124/80 (95) 95 12/26/19 07:44 89 18 95 Room Air 21 12/26/19 04:00 99.1 92 16 108/67 (81) 93 12/26/19 00:00 98.7 98 16 111/70 (84) 94 12/25/19 20:05 Room Air 12/25/19 20:00 97.9 84 16 113/67 (82) 96 12/25/19 19:09 90 18 96 Room Air 21 12/25/19 15:28 98.2 96 20 115/74 (88) 100 I&O Intake and Output 12/25/19 12/26/19 19:00 07:00 Intake Total 992.5 ml Output Total 1000 ml Balance -7.5 ml Intake Oral 720 ml IV Total 272.5 ml Output Urine Total 1000 ml Dressing: saturated Cardiovascular: RSR Respiratory: clear Abdomen: soft, non-tender, present bowel sounds Extremities: no edema, no tenderness, no cyanosis Laboratory Tests Test 12/26/19 07:55 White Blood Count 17.3 K/UL (4.8-10.8) H Red Blood Count 3.50 M/UL (4.70-6.10) L Hemoglobin 12.7 G/DL (14.2-18.0) L Hematocrit 34.0 % (42.0-52.0) L Mean Corpuscular Volume 97 FL (80-99) Mean Corpuscular Hemoglobin 36.1 PG (27.0-31.0) H Mean Corpuscular Hemoglobin Concent 37.2 G/DL (32.0-36.0) H Red Cell Distribution Width 20.2 % (11.6-14.8) H Platelet Count 377 K/UL (150-450) Mean Platelet Volume 5.3 FL (6.5-10.1) L Neutrophils (%) (Auto) 80.4 % (45.0-75.0) H Lymphocytes (%) (Auto) 9.0 % (20.0-45.0) L Monocytes (%) (Auto) 9.3 % (1.0-10.0) Eosinophils (%) (Auto) 0.9 % (0.0-3.0) Basophils (%) (Auto) 0.4 % (0.0-2.0) Plan Problems: (1) Penile abscess Assessment & Plan: 61-year-old male with known urethral cancer status post chemoradiation presented with worsening wound necrosis and potential infection of the site. Patient seen prior penis necrosis falling off now remaining soft tissue in the malignancy region also with necrotic nonviable tissue identified. Drainage is serosanguineous at times sometimes serious and does not seem significant purulent. The cellulitis is minimal. Patient's labs noted. Given patient's history condition immunocompromise status recommend IV antibiotics. I discussed the patient and considerations for debriding some of the nonviable tis stephen though this will not in any way improve his cancer stated could help with local wound care. Patient expressed understanding we will continue to follow with local care and provide as necessary. No drainage of abscess identified at this time we will monitor thank you f/u with primary onc as per heme labs noted on rx wounds and slough/necrotic tissue debridement at bedside penis is fully necrotic and hanging off. will discuss consideration of operative debridement including penis. not recommended at bedside given likely bleeding with debridement. does not want further debridement at this time states feels much better wound less foul odor after last clean ing (2) Urethral cancer (3) Abscess (4) Sepsis (5) Catheter-associated urinary tract infection Romain Li Dec 26, 2019 14:50
[2019-12-26] MEDS: Gentamicin inj 300 MG in NS 110 ML IVPB SCH (15:08)
[2019-12-26 16:00] VITALS: BP 121/83
[2019-12-26] MEDS: DAPTOmycin 250 MG in NS 55 ML IV SCH (16:18)
--- NOTE | 2019-12-26 17:34 | Internal Med Progress Note ---
Subjective Date of Service: Dec 26, 2019 Physician Name Javier Martel Attending Physician Ron Enriquez MD Current Medications Medications (Trade) Dose Ordered Sig/Virginie Route PRN Reason Start Time Stop Time Status Last Admin Dose Admin Acetaminophen (Tylenol) 650 mg Q4H PRN ORAL fever 12/19/19 19:00 01/18/20 18:59 Acetaminophen/ Hydrocodone Bitart ([place] 10/325) 1 tab Q4H PRN ORAL Moderate Pain (Pain Scale 4-6) 12/23/19 15:00 12/30/19 14:59 12/24/19 13:16 Acetaminophen/ Hydrocodone Bitart ([place] 10/325) 2 tab Q4H PRN ORAL Severe Pain (Pain Scale 7-10) 12/23/19 15:00 12/30/19 14:59 12/26/19 09:17 Albuterol/ Ipratropium (Albuterol/ Ipratropium) 3 ml Q4H PRN HHN Shortness of Breath 12/23/19 15:00 12/28/19 14:59 Daptomycin 250 mg/ Sodium Chloride 55 ml @ 100 mls/hr Q24H IV 12/24/19 16:00 12/31/19 15:59 12/26/19 16:18 Dextrose (Dextrose 50%) 25 ml Q30M PRN IV Hypoglycemia 12/19/19 19:00 03/18/20 18:59 Dextrose (Dextrose 50%) 50 ml Q30M PRN IV Hypoglycemia 12/19/19 19:00 03/18/20 18:59 Gentamicin Protocol (Gentamicin pharmacy to dose) 1 ea DAILY PRN MISC Per rx protocol 12/24/19 13:00 01/23/20 12:59 Gentamicin Sulfate 300 mg/ Sodium Chloride 117.5 ml @ 117.5 mls/ hr Q24H IVPB 12/24/19 15:00 12/31/19 14:59 12/26/19 15:08 Heparin Sodium (Porcine) (Heparin 5000 units/ml) 5,000 units EVERY 12 HOURS SUBQ 12/19/19 21:00 02/02/20 20:59 12/26/19 08:09 Meropenem 2 gm/ Sodium Chloride 100 ml @ 200 mls/hr Q8HR IVPB 12/26/19 14:00 12/31/19 13:59 12/26/19 13:53 Ondansetron HCl (Zofran) 4 mg Q6H PRN IVP Nausea & Vomiting 12/19/19 19:00 01/18/20 18:59 Patient Own Medication (Patient's Own Med) 1 ea DAILY ORAL 12/21/19 18:00 01/20/20 17:59 12/26/19 09:16 Polyethylene Glycol (Miralax) 17 gm DAILYPRN PRN ORAL Constipation 12/19/19 19:00 01/18/20 18:59 Temazepam (Restoril) 15 mg HSPRN PRN ORAL Insomnia 12/23/19 15:00 12/30/19 14:59 12/24/19 22:05 Allergies: Coded Allergies: CODEINE (Verified Allergy, Unknown, 02/05/10) ROS Limited/Unobtainable: No Constitutional: Reports: no symptoms HEENT: Reports: no symptoms Cardiovascular: Reports: no symptoms Respiratory: Reports: no symptoms Gastrointestinal/Abdominal: Reports: no symptoms Genitourinary: Reports: no symptoms Neurologic/Psychiatric: Reports: no symptoms Subjective 59 YO M with H/O urethral cancer admitted with Penile abscess and UTI. Cover for Int Med-Dr Enriquez Objective Last Vital Signs Date Time Temp Pulse Resp B/P (MAP) Pulse Ox O2 Delivery O2 Flow Rate FiO2 12/26/19 12:00 97.3 99 19 119/83 (95) 98 12/26/19 11:57 Room Air 12/26/19 07:44 21 12/19/19 16:21 5.0 Laboratory Tests Test 12/26/19 07:55 White Blood Count 17.3 K/UL (4.8-10.8) H Red Blood Count 3.50 M/UL (4.70-6.10) L Hemoglobin 12.7 G/DL (14.2-18.0) L Hematocrit 34.0 % (42.0-52.0) L Mean Corpuscular Volume 97 FL (80-99) Mean Corpuscular Hemoglobin 36.1 PG (27.0-31.0) H Mean Corpuscular Hemoglobin Concent 37.2 G/DL (32.0-36.0) H Red Cell Distribution Width 20.2 % (11.6-14.8) H Platelet Count 377 K/UL (150-450) Mean Platelet Volume 5.3 FL (6.5-10.1) L Neutrophils (%) (Auto) 80.4 % (45.0-75.0) H Lymphocytes (%) (Auto) 9.0 % (20.0-45.0) L Monocytes (%) (Auto) 9.3 % (1.0-10.0) Eosinophils (%) (Auto) 0.9 % (0.0-3.0) Basophils (%) (Auto) 0.4 % (0.0-2.0) Intake and Output 12/25/19 12/26/19 19:00 07:00 Intake Total 992.5 ml Output Total 1000 ml Balance -7.5 ml Intake Oral 720 ml IV Total 272.5 ml Output Urine Total 1000 ml Objective PHYSICAL EXAMINATION: GENERAL: The patient is a well-developed and well-nourished male, in no apparent distress. HEENT: Eyes, pupils equal and responsive to light and accommodation. Extraocular movements are intact. NECK: Supple without lymphadenopathy. CHEST: Lungs are clear to auscultation bilaterally without wheezes or rales. CARDIOVASCULAR: Regular rate. S1, S2 are normal without murmurs, rubs, or gallops. ABDOMEN: Soft, nontender, and nondistended. Positive bowel sounds. No evidence of hepatosplenomegaly. Currently, no rebound or guarding noted. EXTREMITIES: Negative for clubbing, cyanosis, or edema. RECTAL AND GENITAL: There is a large fungating mass over the penile and scrotal region. There is foul odor. NEUROLOGICAL: Cranial nerves II through XII are grossly intact without focal deficits. Motor strength is 5/5 bilaterally intact. Deep tendon reflexes are 2+, plantar. Assessment/Plan Assessment/Plan ASSESSMENT: This is a 59-year-old male with: 1. Urinary tract infection=ESBL Enterobacter cloacae 2. Penile abscess. 3. HIV. 4. Urethral cancer. TREATMENT: 1. Urinary tract infection/penile abscess. Antibiotics=meropenem, daptomycin and gentamicin Infectious Disease consulltation = Dr. Rider. 2. HIV. Continue Symtuza as above. 3. Penile/urethral cancer. Oncology consultation = Dr. Mandeep Horta. Urology consultation = Dr. Chas Larsen. 4. Surgery recommends debridement in OR-see note Javier Martel MD Dec 26, 2019 17:34
--- NOTE | 2019-12-26 19:34 | NUR ---
NURSE HAND-OFF: Important Events on Shift:Suprapubic catheter changed, dressing changed Patient Status: stable Diet: regular Pending Orders: n/a Pending Results/Labs:n/a Pending MD notification:n/a Latest Vital Signs: Temperature 98.1 , Pulse 89 , B/P 121 /83 , Respiratory Rate 19 , O2 SAT 97 , Room Air, O2 Flow Rate 5.0 . Vital Sign Comment: stable Latest Rahman Fall Score: 35 Fall Risk: Medium Risk Safety Measures: Call light Within Reach, Bed Alarm Zone 1, Side Rails Side Rails x2, Bed position Low and Locked. Fall Precautions: Yellow Socks Patient Fall Education Report given to MADAN Newman.
[2019-12-26 20:00] VITALS: BP 114/73
--- NOTE | 2019-12-26 20:00 | NUR ---
NURSE NOTES: Patient received awake, no complaints at this time. SPC draining via gravity. Call light in reach. Will continue to monitor.
--- NOTE | 2019-12-26 21:00 | NUR ---
NURSE NOTES: Wound care rendered. Complete linen changed.
[2019-12-26] MEDS: Miralax 17gm pkt ORAL PRN (21:16)
[2019-12-27] VITALS: BP 106/61
[2019-12-27 04:00] VITALS: BP 113/66
--- NOTE | 2019-12-27 04:20 | NUR ---
NURSE NOTES: Dressing on penile abscess changed again due to drainage.
[2019-12-27 06:39] LABS: BASOPHILS % (AUTO) 0.7 % (0.0-2.0); EOSINOPHILS % (AUTO) 1.2 % (0.0-3.0); HEMATOCRIT 36.6 % (42.0-52.0); HEMOGLOBIN 12.4 G/DL (14.2-18.0); LYMPHOCYTES % (AUTO) 10.6 % (20.0-45.0); MEAN CORPUSCULAR VOLUME 95 FL (80-99); MONOCYTES % (AUTO) 8.3 % (1.0-10.0); NEUTROPHILS % (AUTO) 79.2 % (45.0-75.0); PLATELET COUNT 379 K/UL (150-450); RED BLOOD COUNT 3.83 M/UL (4.70-6.10); RED CELL DISTRIBUTION WIDTH 16.5 % (11.6-14.8); WHITE BLOOD COUNT 15.8 K/UL (4.8-10.8)
--- NOTE | 2019-12-27 07:00 | Hematology/Onc Progress Note ---
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 Leonard at [facility], per patient is his med onc --> dw 12/21 Dr. Leonard [facility] further f/u --> labs have been reviewed, hold off on tumor markers --> has been seen by Dr. Larsen here and recs noted debridement at some point --> 12/22 s/p debridement at bedside # Leukocytosis likely due to Penile abscess --> requires abx as per id vanc/flagyl/cefepime-->vanc/chelsea-->chelsea/dap/gent --> wbc 13-->14-->13--.12.4 # Urinary retention with chronic suprapubic tube. --> per uro, surg care # Probable neurogenic bladder. # Urinary tract infection and colonization. # Hematuria. --> improved # Dvt ppx --> hep sq Appreciate consultation and conner RN Subjective HEENT: Denies: no symptoms, eye pain, blurred vision, tearing, double vision, ear pain, ear discharge, nose pain, nose congestion, throat pain, throat swelling, mouth pain, mouth swelling, other Cardiovascular: Denies: no symptoms, chest pain, edema, irregular heart rate, lightheadedness, palpitations, syncope, other Respiratory: Denies: no symptoms, cough, shortness of breath, SOB with excertion, SOB at rest, sputum, wheezing, other Gastrointestinal/Abdominal: Denies: no symptoms, abdomen distended, abdominal pain, black stools, tarry stools, blood in stool, constipated, diarrhea, difficulty swallowing, nausea, poor appetite, poor fluid intake, rectal bleeding, vomiting, other Genitourinary: Denies: no symptoms, burning, discharge, frequency, flank pain, hematuria, incontinence, pain, urgency, other Neurologic/Psychiatric: Denies: no symptoms, anxiety, depressed, emotional problems, headache, numbness, paresthesia, pre-existing deficit, seizure, tingling, tremors, weakness, other Endocrine: Denies: no symptoms, excessive sweating, flushing, intolerance to cold, intolerance to heat, increased hunger, increased thirst, increased urine, unexplained weight gain, unexplained weight loss, other Hematologic/Lymphatic: Denies: no symptoms, anemia, easy bleeding, easy bruising, adenopathy, other Allergies: Coded Allergies: CODEINE (Verified Allergy, Unknown, 02/05/10) Subjective 12/21 is on abx vanc/flagyl, cefepime, on hep, suprapub catheter functional 12/22 no major events, debridement at some pt, dw Dr. Leonard yesterday [facility] 12/23 underwent bedside debridement yesterday, feeling better, dressing in place 12/24 meds reviewed, meds noted, no bleeding, dw rn 12/26 on chelsea, dapto, gent, no bleeding, meds noted, labs reviewed Objective Objective Current Medications Medications (Trade) Dose Ordered Sig/Virginie Route PRN Reason Start Time Stop Time Status Last Admin Dose Admin Acetaminophen (Tylenol) 650 mg Q4H PRN ORAL fever 12/19/19 19:00 01/18/20 18:59 Acetaminophen/ Hydrocodone Bitart ([place] 10/325) 1 tab Q4H PRN ORAL Moderate Pain (Pain Scale 4-6) 12/23/19 15:00 12/30/19 14:59 12/24/19 13:16 Acetaminophen/ Hydrocodone Bitart ([place] 10/325) 2 tab Q4H PRN ORAL Severe Pain (Pain Scale 7-10) 12/23/19 15:00 12/30/19 14:59 12/26/19 17:49 Albuterol/ Ipratropium (Albuterol/ Ipratropium) 3 ml Q4H PRN HHN Shortness of Breath 12/23/19 15:00 12/28/19 14:59 Daptomycin 250 mg/ Sodium Chloride 55 ml @ 100 mls/hr Q24H IV 12/24/19 16:00 12/31/19 15:59 12/26/19 16:18 Dextrose (Dextrose 50%) 25 ml Q30M PRN IV Hypoglycemia 12/19/19 19:00 03/18/20 18:59 Dextrose (Dextrose 50%) 50 ml Q30M PRN IV Hypoglycemia 12/19/19 19:00 03/18/20 18:59 Gentamicin Protocol (Gentamicin pharmacy to dose) 1 ea DAILY PRN MISC Per rx protocol 12/24/19 13:00 01/23/20 12:59 Gentamicin Sulfate 300 mg/ Sodium Chloride 117.5 ml @ 117.5 mls/ hr Q24H IVPB 12/24/19 15:00 12/31/19 14:59 12/26/19 15:08 Heparin Sodium (Porcine) (Heparin 5000 units/ml) 5,000 units EVERY 12 HOURS SUBQ 12/19/19 21:00 02/02/20 20:59 12/26/19 21:16 Meropenem 2 gm/ Sodium Chloride 100 ml @ 200 mls/hr Q8HR IVPB 12/26/19 14:00 12/31/19 13:59 12/27/19 05:07 Ondansetron HCl (Zofran) 4 mg Q6H PRN IVP Nausea & Vomiting 12/19/19 19:00 01/18/20 18:59 Patient Own Medication (Patient's Own Med) 1 ea DAILY ORAL 12/21/19 18:00 01/20/20 17:59 12/26/19 09:16 Polyethylene Glycol (Miralax) 17 gm DAILYPRN PRN ORAL Constipation 12/19/19 19:00 01/18/20 18:59 12/26/19 21:16 Temazepam (Restoril) 15 mg HSPRN PRN ORAL Insomnia 12/23/19 15:00 12/30/19 14:59 12/26/19 21:16 Last 24 Hour Vital Signs Date Time Temp Pulse Resp B/P (MAP) Pulse Ox O2 Delivery O2 Flow Rate FiO2 12/27/19 04:00 98.1 89 19 113/66 (82) 94 12/27/19 00:00 97.2 85 19 106/61 (76) 94 12/26/19 21:00 Room Air 12/26/19 20:00 97.7 85 19 114/73 (87) 96 12/26/19 19:47 88 18 94 Room Air 21 12/26/19 16:00 98.1 89 19 121/83 (96) 97 12/26/19 12:00 97.3 99 19 119/83 (95) 98 12/26/19 11:57 Room Air 12/26/19 09:00 Room Air 12/26/19 08:00 97.6 100 20 124/80 (95) 95 12/26/19 07:44 89 18 95 Room Air 21 12/26/19 04:00 99.1 92 16 108/67 (81) 93 12/26/19 00:00 98.7 98 16 111/70 (84) 94 12/25/19 20:05 Room Air 12/25/19 20:00 97.9 84 16 113/67 (82) 96 12/25/19 19:09 90 18 96 Room Air 21 12/25/19 15:28 98.2 96 20 115/74 (88) 100 12/25/19 12:08 97.9 77 18 104/68 (80) 94 12/25/19 08:50 Room Air 12/25/19 08:39 98.0 93 20 139/81 (100) 97 12/25/19 07:58 94 18 95 Room Air 21 Intake and Output 12/26/19 12/27/19 19:00 07:00 Intake Total 500 ml 300 ml Output Total 2300 ml 600 ml Balance -1800 ml -300 ml Intake Oral 100 ml IV Total 200 ml Other 500 ml Output Urine Total 2300 ml 600 ml # Voids 2 Labs Test 12/24/19 07:30 12/25/19 04:58 12/26/19 07:55 12/27/19 05:50 White Blood Count 15.0 K/UL (4.8-10.8) 12.9 K/UL (4.8-10.8) 17.3 K/UL (4.8-10.8) 15.8 K/UL (4.8-10.8) Red Blood Count 3.33 M/UL (4.70-6.10) 3.72 M/UL (4.70-6.10) 3.50 M/UL (4.70-6.10) 3.83 M/UL (4.70-6.10) Hemoglobin 12.4 G/DL (14.2-18.0) 12.3 G/DL (14.2-18.0) 12.7 G/DL (14.2-18.0) 12.4 G/DL (14.2-18.0) Hematocrit 32.5 % (42.0-52.0) 35.8 % (42.0-52.0) 34.0 % (42.0-52.0) 36.6 % (42.0-52.0) Mean Corpuscular Volume 98 FL (80-99) 96 FL (80-99) 97 FL (80-99) 95 FL (80- 99) Mean Corpuscular Hemoglobin 37.1 PG (27.0-31.0) 33.0 PG (27.0-31.0) 36.1 PG (27.0-31.0) 32.3 PG (27.0-31.0) Mean Corpuscular Hemoglobin Concent 38.0 G/DL (32.0-36.0) 34.3 G/DL (32.0-36.0) 37.2 G/DL (32.0-36.0) 33.8 G/DL (32.0-36.0) Red Cell Distribution Width 19.6 % (11.6-14.8) 16.7 % (11.6-14.8) 20.2 % (11.6-14.8) 16.5 % (11.6-14.8) Platelet Count 396 K/UL (150-450) 376 K/UL (150-450) 377 K/UL (150-450) 379 K/UL (150-450) Mean Platelet Volume 5.3 FL (6.5-10.1) 5.1 FL (6.5-10.1) 5.3 FL (6.5-10.1) 5.4 FL (6.5-10.1) Neutrophils (%) (Auto) 79.2 % (45.0-75.0) 74.6 % (45.0-75.0) 80.4 % (45.0-75.0) 79.2 % (45.0-75.0) Lymphocytes (%) (Auto) 10.1 % (20.0-45.0) 14.3 % (20.0-45.0) 9.0 % (20.0-45.0) 10.6 % (20.0-45.0) Monocytes (%) (Auto) 9.4 % (1.0-10.0) 9.3 % (1.0-10.0) 9.3 % (1.0-10.0) 8.3 % (1.0-10.0) Eosinophils (%) (Auto) 0.8 % (0.0-3.0) 1.3 % (0.0-3.0) 0.9 % (0.0-3.0) 1.2 % (0.0-3.0) Basophils (%) (Auto) 0.5 % (0.0-2.0) 0.5 % (0.0-2.0) 0.4 % (0.0-2.0) 0.7 % (0.0-2.0) Sodium Level 135 MMOL/L (136-145) Potassium Level 3.6 MMOL/L (3.5-5.1) Chloride Level 101 MMOL/L (98-107) Carbon Dioxide Level 28 MMOL/L (21-32) Anion Gap 6 mmol/L (5-15) Blood Urea Nitrogen 14 mg/dL (7-18) Creatinine 1.0 MG/DL (0.55-1.30) Estimat Glomerular Filtration Rate > 60 mL/min (>60) Glucose Level 130 MG/DL (74-106) Calcium Level 12.4 MG/DL (8.5-10.1) Total Creatine Kinase 11 U/L (26-308) Random Gentamicin Level 0.4 ug/mL Height (Feet): 5 Height (Inches): 6.00 Weight (Pounds): 132 Objective Physical Exam Sp02 EP Interpretation: reviewed, normal General: no apparent distress, Chronically Ill Heent: normocephalic, atraumatic Respiratory: lungs clear, normal breath sounds Cardiovascular: normal peripheral pulses, regular rate Gastrointestinal: non tender, soft, non-distended, no guarding Genitourinary: other - Large area of necrosis noted in the genital region with purulent discharge, ++suprapub catheter Neurologic: alert, oriented x3 Skin: normal color, warm/dry Mandeep Horta MD Dec 27, 2019 07:00
[2019-12-27 07:13] LABS: ANION GAP 4 mmol/L (5-15); BLOOD UREA NITROGEN 15 mg/dL (7-18); CARBON DIOXIDE 32 MMOL/L (21-32); CHLORIDE 103 MMOL/L (98-107); POTASSIUM 3.3 MMOL/L (3.5-5.1); SODIUM 139 MMOL/L (136-145)
--- NOTE | 2019-12-27 07:23 | NUR ---
NURSE HAND-OFF: Important Events on Shift:[dressing changed; wound care x2, no BM, miralax given; critical calcium level-Dr. Doran consulted] Patient Status: [stable] Diet: [Regular] Pending Orders: [] Pending Results/Labs:[] Pending MD notification:[new furniture rental consultant Dr. Doran] Latest Vital Signs: Temperature 98.1 , Pulse 89 , B/P 113 /66 , Respiratory Rate 19 , O2 SAT 94 , Room Air, O2 Flow Rate 5.0 . Vital Sign Comment: [] Latest Rahman Fall Score: 35 Fall Risk: Medium Risk Safety Measures: Call light Within Reach, Bed Alarm Zone 1, Side Rails Side Rails x2, Bed position Low and Locked. Fall Precautions: Yellow Socks Patient Fall Education Report given to [Johanny RN].
[2019-12-27 08:00] VITALS: BP 111/69
--- NOTE | 2019-12-27 08:00 | NUR ---
NURSE NOTES: Patient awake and alert to name,respirations unlabored.Supra pubic catheter is in place and draining charli color urine.Noted dressing to scrotal area.Will change as needed. Bed alarm educational psychologist light within reach.Breakfast at bedside.Saline lock to left wrist intact.
--- NOTE | 2019-12-27 08:59 | Urology Progress Note ---
Assessment/Plan Assessment/Plan: 1. History of urethral cancer, status post chemo and immunotherapy and radiation with previous debridement. 2. Urinary retention and a chronic suprapubic tube. 3. Probable neurogenic bladder. 4. UTI and colonization. 5. Hematuria. 6. Proteinuria. 7. Mild acute kidney injury. monitor clinically maintain SPT, last exchanged 12/25 hand irrigated and do PRN abx as ordered local wound care debridement PRN Subjective Allergies: Coded Allergies: CODEINE (Verified Allergy, Unknown, 02/05/10) Subjective all noted, no new changes new SPT draining ok Objective Last 24 Hour Vital Signs Date Time Temp Pulse Resp B/P (MAP) Pulse Ox O2 Delivery O2 Flow Rate FiO2 12/27/19 04:00 98.1 89 19 113/66 (82) 94 12/27/19 00:00 97.2 85 19 106/61 (76) 94 12/26/19 21:00 Room Air 12/26/19 20:00 97.7 85 19 114/73 (87) 96 12/26/19 19:47 88 18 94 Room Air 21 12/26/19 16:00 98.1 89 19 121/83 (96) 97 12/26/19 12:00 97.3 99 19 119/83 (95) 98 12/26/19 11:57 Room Air 12/26/19 09:00 Room Air Intake and Output 12/26/19 12/27/19 19:00 07:00 Intake Total 500 ml 300 ml Output Total 2300 ml 600 ml Balance -1800 ml -300 ml Intake Oral 100 ml IV Total 200 ml Other 500 ml Output Urine Total 2300 ml 600 ml # Voids 2 Microbiology Date/Time Source Procedure Growth Status 12/21/19 16:45 Penis Gram Stain - Final Complete 12/21/19 16:45 Wound Culture - Final Pseudomonas Aeruginosa Escherichia Coli - Esbl Enterococcus Gallinarum Complete 12/20/19 10:20 Rectal Mucosa - Final NO CARBAPENEM-RESISTANT ENTEROBACTERI... Complete 12/19/19 16:25 Urine,Clean Catch Urine Culture - Final Enterobacter Cloacae Complex Complete 12/19/19 16:25 Blood Blood Culture - Final NO GROWTH AFTER 5 DAYS Complete Current Medications Medications (Trade) Dose Ordered Sig/Virginie Route PRN Reason Start Time Stop Time Status Last Admin Dose Admin Acetaminophen (Tylenol) 650 mg Q4H PRN ORAL fever 12/19/19 19:00 12/7/20 18:59 Acetaminophen/ Hydrocodone Bitart ([place] 10/325) 1 tab Q4H PRN ORAL Moderate Pain (Pain Scale 4-6) 12/23/19 15:00 12/30/19 14:59 12/24/19 13:16 Acetaminophen/ Hydrocodone Bitart ([place] 10/325) 2 tab Q4H PRN ORAL Severe Pain (Pain Scale 7-10) 12/23/19 15:00 12/30/19 14:59 12/26/19 17:49 Albuterol/ Ipratropium (Albuterol/ Ipratropium) 3 ml Q4H PRN HHN Shortness of Breath 12/23/19 15:00 12/28/19 14:59 Daptomycin 250 mg/ Sodium Chloride 55 ml @ 100 mls/hr Q24H IV 12/24/19 16:00 12/31/19 15:59 12/26/19 16:18 Dextrose (Dextrose 50%) 25 ml Q30M PRN IV Hypoglycemia 12/19/19 19:00 03/18/20 18:59 Dextrose (Dextrose 50%) 50 ml Q30M PRN IV Hypoglycemia 12/19/19 19:00 03/18/20 18:59 Gentamicin Protocol (Gentamicin pharmacy to dose) 1 ea DAILY PRN MISC Per rx protocol 12/24/19 13:00 01/23/20 12:59 Gentamicin Sulfate 300 mg/ Sodium Chloride 117.5 ml @ 117.5 mls/ hr Q24H IVPB 12/24/19 15:00 12/31/19 14:59 12/26/19 15:08 Heparin Sodium (Porcine) (Heparin 5000 units/ml) 5,000 units EVERY 12 HOURS SUBQ 12/19/19 21:00 02/02/20 20:59 12/26/19 21:16 Meropenem 2 gm/ Sodium Chloride 100 ml @ 200 mls/hr Q8HR IVPB 12/26/19 14:00 12/31/19 13:59 12/27/19 05:07 Ondansetron HCl (Zofran) 4 mg Q6H PRN IVP Nausea & Vomiting 12/19/19 19:00 01/18/20 18:59 Patient Own Medication (Patient's Own Med) 1 ea DAILY ORAL 12/21/19 18:00 12/9/20 17:59 12/26/19 09:16 Polyethylene Glycol (Miralax) 17 gm DAILYPRN PRN ORAL Constipation 12/19/19 19:00 01/18/20 18:59 12/26/19 21:16 Temazepam (Restoril) 15 mg HSPRN PRN ORAL Insomnia 12/23/19 15:00 12/30/19 14:59 12/26/19 21:16 Laboratory Tests 12/27/19 05:50: White Blood Count 15.8H, Red Blood Count 3.83L, Hemoglobin 12.4L, Hematocrit 36.6L, Mean Corpuscular Volume 95, Mean Corpuscular Hemoglobin 32.3H, Mean Corpuscular Hemoglobin Concent 33.8, Red Cell Distribution Width 16.5H, Platelet Count 379, Mean Platelet Volume 5.4L, Neutrophils (%) (Auto) 79.2H, Lymphocytes (%) (Auto) 10.6L, Monocytes (%) (Auto) 8.3, Eosinophils (%) (Auto) 1.2, Basophils (%) (Auto) 0.7, Sodium Level 139, Potassium Level 3.3L, Chloride Level 103, Carbon Dioxide Level 32, Anion Gap 4L, Blood Urea Nitrogen 15, Creatinine 1.0, Estimat Glomerular Filtration Rate > 60, Glucose Level 95, Calcium Level 14.0*H Height (Feet): 5 Height (Inches): 6.00 Weight (Pounds): 132 Objective exam stable granulation tissue Chas Larsen MD Dec 27, 2019 08:59
[2019-12-27] MEDS: SYMTUZA ORAL SCH (09:47)
[2019-12-27] MEDS: Heparin 5000 units/ml inj SUBQ SCH ×2 (09:50→22:00)
[2019-12-27] MEDS: HYDROcodone/Acetamin 10/325 tab ORAL PRN ×2 (09:55→20:11)
[2019-12-27 12:00] VITALS: BP 118/67
--- NOTE | 2019-12-27 14:43 | Internal Med Progress Note ---
Subjective Date of Service: Dec 27, 2019 Physician Name Javier Martel Attending Physician Ron Enriquez MD Current Medications Medications (Trade) Dose Ordered Sig/Virginie Route PRN Reason Start Time Stop Time Status Last Admin Dose Admin Acetaminophen (Tylenol) 650 mg Q4H PRN ORAL fever 12/19/19 19:00 01/18/20 18:59 Acetaminophen/ Hydrocodone Bitart ([place] 10/325) 1 tab Q4H PRN ORAL Moderate Pain (Pain Scale 4-6) 12/23/19 15:00 12/30/19 14:59 12/24/19 13:16 Acetaminophen/ Hydrocodone Bitart ([place] 10/325) 2 tab Q4H PRN ORAL Severe Pain (Pain Scale 7-10) 12/23/19 15:00 12/30/19 14:59 12/27/19 09:55 Albuterol/ Ipratropium (Albuterol/ Ipratropium) 3 ml Q4H PRN HHN Shortness of Breath 12/23/19 15:00 12/28/19 14:59 Daptomycin 250 mg/ Sodium Chloride 55 ml @ 100 mls/hr Q24H IV 12/24/19 16:00 12/31/19 15:59 12/26/19 16:18 Dextrose (Dextrose 50%) 25 ml Q30M PRN IV Hypoglycemia 12/19/19 19:00 03/18/20 18:59 Dextrose (Dextrose 50%) 50 ml Q30M PRN IV Hypoglycemia 12/19/19 19:00 03/18/20 18:59 Gentamicin Protocol (Gentamicin pharmacy to dose) 1 ea DAILY PRN MISC Per rx protocol 12/24/19 13:00 01/23/20 12:59 Gentamicin Sulfate 300 mg/ Sodium Chloride 117.5 ml @ 117.5 mls/ hr Q24H IVPB 12/24/19 15:00 12/31/19 14:59 12/26/19 15:08 Heparin Sodium (Porcine) (Heparin 5000 units/ml) 5,000 units EVERY 12 HOURS SUBQ 12/19/19 21:00 02/02/20 20:59 12/27/19 09:50 Meropenem 2 gm/ Sodium Chloride 100 ml @ 200 mls/hr Q8HR IVPB 12/26/19 14:00 12/31/19 13:59 12/27/19 13:56 Ondansetron HCl (Zofran) 4 mg Q6H PRN IVP Nausea & Vomiting 12/19/19 19:00 01/18/20 18:59 Patient Own Medication (Patient's Own Med) 1 ea DAILY ORAL 12/21/19 18:00 01/20/20 17:59 12/27/19 09:47 Polyethylene Glycol (Miralax) 17 gm DAILYPRN PRN ORAL Constipation 12/19/19 19:00 01/18/20 18:59 12/26/19 21:16 Temazepam (Restoril) 15 mg HSPRN PRN ORAL Insomnia 12/23/19 15:00 12/30/19 14:59 12/26/19 21:16 Allergies: Coded Allergies: CODEINE (Verified Allergy, Unknown, 02/05/10) ROS Limited/Unobtainable: No Constitutional: Reports: no symptoms HEENT: Reports: no symptoms Cardiovascular: Reports: no symptoms Respiratory: Reports: no symptoms Gastrointestinal/Abdominal: Reports: no symptoms Genitourinary: Reports: no symptoms Neurologic/Psychiatric: Reports: no symptoms Subjective 59 YO M with H/O urethral cancer admitted with Penile abscess and UTI. Cover for Int Med-Dr Enriquez. S/P bedside debridement 12/23/19 Objective Last Vital Signs Date Time Temp Pulse Resp B/P (MAP) Pulse Ox O2 Delivery O2 Flow Rate FiO2 12/27/19 12:00 97.9 90 17 118/67 (84) 97 12/27/19 09:23 Room Air 21 12/19/19 16:21 5.0 Laboratory Tests Test 12/27/19 05:50 White Blood Count 15.8 K/UL (4.8-10.8) H Red Blood Count 3.83 M/UL (4.70-6.10) L Hemoglobin 12.4 G/DL (14.2-18.0) L Hematocrit 36.6 % (42.0-52.0) L Mean Corpuscular Volume 95 FL (80-99) Mean Corpuscular Hemoglobin 32.3 PG (27.0-31.0) H Mean Corpuscular Hemoglobin Concent 33.8 G/DL (32.0-36.0) Red Cell Distribution Width 16.5 % (11.6-14.8) H Platelet Count 379 K/UL (150-450) Mean Platelet Volume 5.4 FL (6.5-10.1) L Neutrophils (%) (Auto) 79.2 % (45.0-75.0) H Lymphocytes (%) (Auto) 10.6 % (20.0-45.0) L Monocytes (%) (Auto) 8.3 % (1.0-10.0) Eosinophils (%) (Auto) 1.2 % (0.0-3.0) Basophils (%) (Auto) 0.7 % (0.0-2.0) Sodium Level 139 MMOL/L (136-145) Potassium Level 3.3 MMOL/L (3.5-5.1) L Chloride Level 103 MMOL/L (98-107) Carbon Dioxide Level 32 MMOL/L (21-32) Anion Gap 4 mmol/L (5-15) L Blood Urea Nitrogen 15 mg/dL (7-18) Creatinine 1.0 MG/DL (0.55-1.30) Estimat Glomerular Filtration Rate > 60 mL/min (>60) Glucose Level 95 MG/DL (74-106) Calcium Level 14.0 MG/DL (8.5-10.1) *H Intake and Output 12/26/19 12/27/19 19:00 07:00 Intake Total 500 ml 300 ml Output Total 2300 ml 600 ml Balance -1800 ml -300 ml Intake Oral 100 ml IV Total 200 ml Other 500 ml Output Urine Total 2300 ml 600 ml # Voids 2 Objective PHYSICAL EXAMINATION: GENERAL: The patient is a well-developed and well-nourished male, in no apparent distress. HEENT: Eyes, pupils equal and responsive to light and accommodation. Extraocular movements are intact. NECK: Supple without lymphadenopathy. CHEST: Lungs are clear to auscultation bilaterally without wheezes or rales. CARDIOVASCULAR: Regular rate. S1, S2 are normal without murmurs, rubs, or gallops. ABDOMEN: Soft, nontender, and nondistended. Positive bowel sounds. No evidence of hepatosplenomegaly. Currently, no rebound or guarding noted. EXTREMITIES: Negative for clubbing, cyanosis, or edema. RECTAL AND GENITAL: There is a large fungating mass over the penile and scrotal region. There is foul odor. NEUROLOGICAL: Cranial nerves II through XII are grossly intact without focal deficits. Motor strength is 5/5 bilaterally intact. Deep tendon reflexes are 2+, plantar. Assessment/Plan Assessment/Plan ASSESSMENT: This is a 59-year-old male with: 1. Urinary tract infection=ESBL Enterobacter cloacae 2. Penile abscess. 3. HIV. 4. Urethral cancer. TREATMENT: 1. Urinary tract infection/penile abscess. Antibiotics=meropenem, daptomycin and gentamicin Infectious Disease consulltation = Dr. Rider. 2. HIV. Continue Symtuza as above. 3. Penile/urethral cancer. Oncology consultation = Dr. Mandeep Horta. Urology consultation = Dr. Chas Larsen. 4. S/P bedside debridement; recommend debridement in OR per surgery Javier Martel MD Dec 27, 2019 14:43
[2019-12-27] MEDS: Gentamicin inj 300 MG in NS 110 ML IVPB SCH (15:05)
--- NOTE | 2019-12-27 15:31 | NUR ---
NURSE NOTES: DR Martel aware of patient potassium level of 3.3,order received to give potassium chloride 40meq po x1. updated on patient Calcium level of 14.0.DR Martel will consult with DR Doran.
--- NOTE | 2019-12-27 15:53 | NUR ---
CASE MANAGEMENT:REVIEW SI;PENILE NECROTIC WOUND INFECTION. HYPERCALCEMIA. URETHRAL CANCER. HYPERCALCEMIA. SEPSIS. 98.9 93 19 118/67 94% ON RA WBC 15.8 K+ 3.3 CA 14.0 IS;K-DUR PO ONCE MEROPENEM IV Q8 DAPTOMYCIN IV Q24 GENTAMICIN OV Q24 NORCO PO Q4 PRN HEPARIN SUBQ Q12 MED SURG STATUS DCP;FROM [facility] [employer] [place]
[2019-12-27 16:00] VITALS: BP 103/63
[2019-12-27] MEDS: DAPTOmycin 250 MG in NS 55 ML IV SCH (16:03)
--- NOTE | 2019-12-27 17:15 | Surgery Progress Note ---
Surgery Progress Note Subjective Symptoms: improved, tolerating diet, passing flatus, BM Objective Last 24 Hour Vital Signs Date Time Temp Pulse Resp B/P (MAP) Pulse Ox O2 Delivery O2 Flow Rate FiO2 12/27/19 16:00 98.3 62 19 103/63 (76) 97 12/27/19 12:00 97.9 90 17 118/67 (84) 97 12/27/19 09:23 95 18 94 Room Air 21 12/27/19 09:00 Room Air 12/27/19 08:00 98.9 93 19 111/69 (83) 96 12/27/19 04:00 98.1 89 19 113/66 (82) 94 12/27/19 00:00 97.2 85 19 106/61 (76) 94 12/26/19 21:00 Room Air 12/26/19 20:00 97.7 85 19 114/73 (87) 96 12/26/19 19:47 88 18 94 Room Air 21 I&O Intake and Output 12/26/19 12/27/19 19:00 07:00 Intake Total 500 ml 300 ml Output Total 2300 ml 600 ml Balance -1800 ml -300 ml Intake Oral 100 ml IV Total 200 ml Other 500 ml Output Urine Total 2300 ml 600 ml # Voids 2 Dressing: saturated Cardiovascular: RSR Respiratory: decreased breath sounds Abdomen: non-tender, present bowel sounds Extremities: no edema, no tenderness, no cyanosis Laboratory Tests Test 12/27/19 05:50 White Blood Count 15.8 K/UL (4.8-10.8) H Red Blood Count 3.83 M/UL (4.70-6.10) L Hemoglobin 12.4 G/DL (14.2-18.0) L Hematocrit 36.6 % (42.0-52.0) L Mean Corpuscular Volume 95 FL (80-99) Mean Corpuscular Hemoglobin 32.3 PG (27.0-31.0) H Mean Corpuscular Hemoglobin Concent 33.8 G/DL (32.0-36.0) Red Cell Distribution Width 16.5 % (11.6-14.8) H Platelet Count 379 K/UL (150-450) Mean Platelet Volume 5.4 FL (6.5-10.1) L Neutrophils (%) (Auto) 79.2 % (45.0-75.0) H Lymphocytes (%) (Auto) 10.6 % (20.0-45.0) L Monocytes (%) (Auto) 8.3 % (1.0-10.0) Eosinophils (%) (Auto) 1.2 % (0.0-3.0) Basophils (%) (Auto) 0.7 % (0.0-2.0) Sodium Level 139 MMOL/L (136-145) Potassium Level 3.3 MMOL/L (3.5-5.1) L Chloride Level 103 MMOL/L (98-107) Carbon Dioxide Level 32 MMOL/L (21-32) Anion Gap 4 mmol/L (5-15) L Blood Urea Nitrogen 15 mg/dL (7-18) Creatinine 1.0 MG/DL (0.55-1.30) Estimat Glomerular Filtration Rate > 60 mL/min (>60) Glucose Level 95 MG/DL (74-106) Calcium Level 14.0 MG/DL (8.5-10.1) *H Plan Problems: (1) Penile abscess Assessment & Plan: 61-year-old male with known urethral cancer status post chemoradiation presented with worsening wound necrosis and potential infection of the site. Patient seen prior penis necrosis falling off now remaining soft tissue in the malignancy region also with necrotic nonviable tissue identified. Drainage is serosanguineous at times sometimes serious and does not seem significant purulent. The cellulitis is minimal. Patient's labs noted. Given patient's history condition immunocompromise status recommend IV antibiotics. I discussed the patient and considerations for debriding some of the nonviable tissue though this will not in any way improve his cancer stated could help with local wound care. Patient expressed understanding we will continue to follow with local care and provide as necessary. No drainage of abscess identified at this time we will monitor thank you f/u with primary onc as per heme labs noted on rx wounds and slough/necrotic tissue debridement at bedside penis is fully necrotic and hanging off. will discuss consideration of operative debridement including penis. not recommended at bedside given likely bleeding with debridement. does not want further debridement at this time states feels much better wound less foul odor after last clean ing (2) Urethral cancer (3) Abscess (4) Sepsis (5) Catheter-associated urinary tract infection Romain Li Dec 27, 2019 17:15
--- NOTE | 2019-12-27 18:30 | NUR ---
NURSE NOTES: Dressing change today,supra pubic catheter remains in place with charli color urine.no complaint of pain at this time.Call light within reach bed alarm on
--- NOTE | 2019-12-27 19:15 | NUR ---
NURSE NOTES: Received report from [facility] [place]. AAO x 2-3, confused, on room air. Supura pubic cath in place and draining urine well. Dressings on perineal area intact. IV site intact and patent. Pt c/o pain 8/10 on perineal area. Bed locked, lowest position, alarm on, side rails up, call light within reach. Will continue to monitor.
--- NOTE | 2019-12-27 19:25 | NUR ---
NURSE HAND-OFF: Daya HAGER Important Events on Shift:[]potassium today 3.3, potassium 40 meq po given po x1 Patient Status: [] Diet: Regular] Pending Orders: [] Pending Results/Labs:[] Pending MD notification:[] Latest Vital Signs: Temperature 98.3 , Pulse 85 , B/P 103 /63 , Respiratory Rate 18 , O2 SAT 95 , Room Air, O2 Flow Rate 5.0 . Vital Sign Comment: [] Latest Rahman Fall Score: 35 Fall Risk: Medium Risk Safety Measures: Call light Within Reach, Bed Alarm Zone 1, Side Rails Side Rails x2, Bed position Low and Locked. Fall Precautions: y Yellow Socks Patient Fall Education bed alarm Report given to [].
[2019-12-27 20:00] VITALS: BP 152/82
[2019-12-28] VITALS: BP 125/72
--- NOTE | 2019-12-28 00:03 | NUR ---
NURSE NOTES: Wound dressing changed
[2019-12-28 04:00] VITALS: BP 107/65
[2019-12-28] MEDS: Miralax 17gm pkt ORAL PRN (05:24)
--- NOTE | 2019-12-28 06:00 | NUR ---
NURSE NOTES: RN pulled out norco 2tb and returned with witness Paty. RN supposed to click 2tb norco on Pyxis but clicked 1tb norco by mistake.
--- NOTE | 2019-12-28 06:46 | NUR ---
NURSE HAND-OFF: Important Events on Shift:pain, wound care Patient Status: stable Diet: reg Pending Orders: Pending Results/Labs:AM labs Pending MD notification: Latest Vital Signs: Temperature 98.3 , Pulse 90 , B/P 107 /65 , Respiratory Rate 18 , O2 SAT 92 , Room Air, O2 Flow Rate 5.0 . Vital Sign Comment: [] Latest Rahman Fall Score: 35 Fall Risk: Medium Risk Safety Measures: Call light Within Reach, Bed Alarm Zone 1, Side Rails Side Rails x2, Bed position Low and Locked. Fall Precautions: Regis Brady Patient Fall Education Addendum: 12/28/19 at 0734 by CAROLYN BARRAZA RN RN HAND-OFF: Report given to
--- NOTE | 2019-12-28 07:01 | Hematology/Onc Progress Note ---
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 Leonard at [facility], per patient is his med onc --> dw 12/21 Dr. Leonard [facility] further f/u --> labs have been reviewed, hold off on tumor markers --> has been seen by Dr. Larsen here and recs noted debridement at some point --> 12/22 s/p debridement at bedside # Leukocytosis likely due to Penile abscess --> requires abx as per id vanc/flagyl/cefepime-->vanc/chelsea-->chelsea/dap/gent --> wbc 13-->14-->13--.12.4 # Urinary retention with chronic suprapubic tube. --> per uro, surg care # Probable neurogenic bladder. # Urinary tract infection and colonization. # Hematuria. --> improved # Dvt ppx --> hep sq Appreciate consultation and dw RN Subjective Constitutional: Denies: no symptoms, chills, fever, malaise, weakness, other HEENT: Denies: no symptoms, eye pain, blurred vision, tearing, double vision, ear pain, ear discharge, nose pain, nose congestion, throat pain, throat swelling, mouth pain, mouth swelling, other Cardiovascular: Denies: no symptoms, chest pain, edema, irregular heart rate, lightheadedness, palpitations, syncope, other Respiratory: Denies: no symptoms, cough, shortness of breath, SOB with excertion, SOB at rest, sputum, wheezing, other Gastrointestinal/Abdominal: Denies: no symptoms, abdomen distended, abdominal pain, black stools, tarry stools, blood in stool, constipated, diarrhea, difficulty swallowing, nausea, poor appetite, poor fluid intake, rectal bleeding, vomiting, other Neurologic/Psychiatric: Denies: no symptoms, anxiety, depressed, emotional problems, headache, numbness, paresthesia, pre-existing deficit, seizure, tingling, tremors, weakness, other Endocrine: Denies: no symptoms, excessive sweating, flushing, intolerance to cold, intolerance to heat, increased hunger, increased thirst, increased urine, unexplained weight gain, unexplained weight loss, other Allergies: Coded Allergies: CODEINE (Verified Allergy, Unknown, 02/05/10) Subjective 12/21 is on abx vanc/flagyl, cefepime, on hep, suprapub catheter functional 12/22 no major events, debridement at some pt, dw [facility] Leonard [facility] 12/23 underwent bedside debridement yesterday, feeling better, dressing in place 12/24 meds reviewed, meds noted, no bleeding, dw rn 12/26 on chelsea, dapto, gent, no bleeding, meds noted, labs reviewed 12/27 wound care, dressing changes, labs reviewed, no bleeding Objective Objective Current Medications Medications (Trade) Dose Ordered Sig/Virginie Route PRN Reason Start Time Stop Time Status Last Admin Dose Admin Acetaminophen (Tylenol) 650 mg Q4H PRN ORAL fever 12/19/19 19:00 01/18/20 18:59 Acetaminophen/ Hydrocodone Bitart ([place] 10/325) 1 tab Q4H PRN ORAL Moderate Pain (Pain Scale 4-6) 12/23/19 15:00 12/30/19 14:59 12/24/19 13:16 Acetaminophen/ Hydrocodone Bitart ([place] 10/325) 2 tab Q4H PRN ORAL Severe Pain (Pain Scale 7-10) 12/23/19 15:00 12/30/19 14:59 12/27/19 20:11 Albuterol/ Ipratropium (Albuterol/ Ipratropium) 3 ml Q4H PRN HHN Shortness of Breath 12/23/19 15:00 12/28/19 14:59 Daptomycin 250 mg/ Sodium Chloride 55 ml @ 100 mls/hr Q24H IV 12/24/19 16:00 12/31/19 15:59 12/27/19 16:03 Dextrose (Dextrose 50%) 25 ml Q30M PRN IV Hypoglycemia 12/19/19 19:00 03/18/20 18:59 Dextrose (Dextrose 50%) 50 ml Q30M PRN IV Hypoglycemia 12/19/19 19:00 03/18/20 18:59 Gentamicin Protocol (Gentamicin pharmacy to dose) 1 ea DAILY PRN MISC Per rx protocol 12/24/19 13:00 01/23/20 12:59 Gentamicin Sulfate 300 mg/ Sodium Chloride 117.5 ml @ 117.5 mls/ hr Q24H IVPB 12/24/19 15:00 12/31/19 14:59 12/27/19 15:05 Heparin Sodium (Porcine) (Heparin 5000 units/ml) 5,000 units EVERY 12 HOURS SUBQ 12/19/19 21:00 02/02/20 20:59 12/27/19 22:00 Meropenem 2 gm/ Sodium Chloride 100 ml @ 200 mls/hr Q8HR IVPB 12/26/19 14:00 12/31/19 13:59 12/28/19 05:22 Ondansetron HCl (Zofran) 4 mg Q6H PRN IVP Nausea & Vomiting 12/19/19 19:00 01/18/20 18:59 Patient Own Medication (Patient's Own Med) 1 ea DAILY ORAL 12/21/19 18:00 01/20/20 17:59 12/27/19 09:47 Polyethylene Glycol (Miralax) 17 gm DAILYPRN PRN ORAL Constipation 12/19/19 19:00 01/18/20 18:59 12/28/19 05:24 Temazepam (Restoril) 15 mg HSPRN PRN ORAL Insomnia 12/23/19 15:00 12/30/19 14:59 12/27/19 21:59 Last 24 Hour Vital Signs Date Time Temp Pulse Resp B/P (MAP) Pulse Ox O2 Delivery O2 Flow Rate FiO2 12/28/19 04:00 98.3 90 18 107/65 (79) 92 12/28/19 00:00 97.9 91 18 125/72 (89) 96 12/27/19 21:00 Room Air 12/27/19 20:00 97.6 88 18 152/82 (105) 97 12/27/19 19:30 85 18 95 Room Air 12/27/19 16:00 98.3 62 19 103/63 (76) 97 12/27/19 12:00 97.9 90 17 118/67 (84) 97 12/27/19 09:23 95 18 94 Room Air 21 12/27/19 09:00 Room Air 12/27/19 08:00 98.9 93 19 111/69 (83) 96 12/27/19 04:00 98.1 89 19 113/66 (82) 94 12/27/19 00:00 97.2 85 19 106/61 (76) 94 12/26/19 21:00 Room Air 12/26/19 20:00 97.7 85 19 114/73 (87) 96 12/26/19 19:47 88 18 94 Room Air 21 12/26/19 16:00 98.1 89 19 121/83 (96) 97 12/26/19 12:00 97.3 99 19 119/83 (95) 98 12/26/19 11:57 Room Air 12/26/19 09:00 Room Air 12/26/19 08:00 97.6 100 20 124/80 (95) 95 12/26/19 07:44 89 18 95 Room Air 21 Intake and Output 12/27/19 12/28/19 19:00 07:00 Intake Total 500 ml Output Total 1200 ml 1400 ml Balance -1200 ml -900 ml Intake Oral 500 ml Output Urine Total 1200 ml 1400 ml Labs Test 12/26/19 07:55 12/27/19 05:50 White Blood Count 17.3 K/UL (4.8-10.8) 15.8 K/UL (4.8-10.8) Red Blood Count 3.50 M/UL (4.70-6.10) 3.83 M/UL (4.70-6.10) Hemoglobin 12.7 G/DL (14.2-18.0) 12.4 G/DL (14.2-18.0) Hematocrit 34.0 % (42.0-52.0) 36.6 % (42.0-52.0) Mean Corpuscular Volume 97 FL (80-99) 95 FL (80-99) Mean Corpuscular Hemoglobin 36.1 PG (27.0-31.0) 32.3 PG (27.0-31.0) Mean Corpuscular Hemoglobin Concent 37.2 G/DL (32.0-36.0) 33.8 G/DL (32.0-36.0) Red Cell Distribution Width 20.2 % (11.6-14.8) 16.5 % (11.6-14.8) Platelet Count 377 K/UL (150-450) 379 K/UL (150-450) Mean Platelet Volume 5.3 FL (6.5-10.1) 5.4 FL (6.5-10.1) Neutrophils (%) (Auto) 80.4 % (45.0-75.0) 79.2 % (45.0-75.0) Lymphocytes (%) (Auto) 9.0 % (20.0-45.0) 10.6 % (20.0-45.0) Monocytes (%) (Auto) 9.3 % (1.0-10.0) 8.3 % (1.0-10.0) Eosinophils (%) (Auto) 0.9 % (0.0-3.0) 1.2 % (0.0-3.0) Basophils (%) (Auto) 0.4 % (0.0-2.0) 0.7 % (0.0-2.0) Sodium Level 139 MMOL/L (136-145) Potassium Level 3.3 MMOL/L (3.5-5.1) Chloride Level 103 MMOL/L (98-107) Carbon Dioxide Level 32 MMOL/L (21-32) Anion Gap 4 mmol/L (5-15) Blood Urea Nitrogen 15 mg/dL (7-18) Creatinine 1.0 MG/DL (0.55-1.30) Estimat Glomerular Filtration Rate > 60 mL/min (>60) Glucose Level 95 MG/DL (74-106) Calcium Level 14.0 MG/DL (8.5-10.1) Height (Feet): 5 Height (Inches): 6.00 Weight (Pounds): 132 Objective Physical Exam Sp02 EP Interpretation: reviewed, normal General: no apparent distress, Chronically Ill Heent: normocephalic, atraumatic Respiratory: lungs clear, normal breath sounds Cardiovascular: normal peripheral pulses, regular rate Gastrointestinal: non tender, soft, non-distended, no guarding Genitourinary: other - Large area of necrosis noted in the genital region with purulent discharge, ++suprapub catheter Neurologic: alert, oriented x3 Skin: normal color, warm/dry Mandeep Horta MD Dec 28, 2019 07:01
--- NOTE | 2019-12-28 07:31 | Urology Progress Note ---
Assessment/Plan Assessment/Plan: 1. History of urethral cancer, status post chemo and immunotherapy and radiation with previous debridement. 2. Urinary retention and a chronic suprapubic tube. 3. Probable neurogenic bladder. 4. UTI and colonization. 5. Hematuria. 6. Proteinuria. 7. Mild acute kidney injury. monitor clinically maintain SPT, last exchanged 12/25 hand irrigated and do PRN abx as ordered local wound care debridement PRN Subjective Allergies: Coded Allergies: CODEINE (Verified Allergy, Unknown, 02/05/10) Subjective all noted, no new changes new SPT draining ok Objective Last 24 Hour Vital Signs Date Time Temp Pulse Resp B/P (MAP) Pulse Ox O2 Delivery O2 Flow Rate FiO2 12/28/19 04:00 98.3 90 18 107/65 (79) 92 12/28/19 00:00 97.9 91 18 125/72 (89) 96 12/27/19 21:00 Room Air 12/27/19 20:00 97.6 88 18 152/82 (105) 97 12/27/19 19:30 85 18 95 Room Air 21 12/27/19 16:00 98.3 62 19 103/63 (76) 97 12/27/19 12:00 97.9 90 17 118/67 (84) 97 12/27/19 09:23 95 18 94 Room Air 21 12/27/19 09:00 Room Air 12/27/19 08:00 98.9 93 19 111/69 (83) 96 Intake and Output 12/27/19 12/28/19 19:00 07:00 Intake Total 500 ml Output Total 1200 ml 1400 ml Balance -1200 ml -900 ml Intake Oral 500 ml Output Urine Total 1200 ml 1400 ml Microbiology Date/Time Source Procedure Growth Status 12/21/19 16:45 Penis Gram Stain - Final Complete 12/21/19 16:45 Wound Culture - Final Pseudomonas Aeruginosa Escherichia Coli - Esbl Enterococcus Gallinarum Complete 12/20/19 10:20 Rectal Mucosa - Final NO CARBAPENEM-RESISTANT ENTEROBACTERI... Complete 12/19/19 16:25 Urine,Clean Catch Urine Culture - Final Enterobacter Cloacae Complex Complete 12/19/19 16:25 Blood Blood Culture - Final NO GROWTH AFTER 5 DAYS Complete Current Medications Medications (Trade) Dose Ordered Sig/Virginie Route PRN Reason Start Time Stop Time Status Last Admin Dose Admin Acetaminophen (Tylenol) 650 mg Q4H PRN ORAL fever 12/19/19 19:00 01/18/20 18:59 Acetaminophen/ Hydrocodone Bitart ([place] 10/325) 1 tab Q4H PRN ORAL Moderate Pain (Pain Scale 4-6) 12/23/19 15:00 12/30/19 14:59 12/24/19 13:16 Acetaminophen/ Hydrocodone Bitart ([place] 10/325) 2 tab Q4H PRN ORAL Severe Pain (Pain Scale 7-10) 12/23/19 15:00 12/30/19 14:59 12/27/19 20:11 Albuterol/ Ipratropium (Albuterol/ Ipratropium) 3 ml Q4H PRN HHN Shortness of Breath 12/23/19 15:00 12/28/19 14:59 Daptomycin 250 mg/ Sodium Chloride 55 ml @ 100 mls/hr Q24H IV 12/24/19 16:00 12/31/19 15:59 12/27/19 16:03 Dextrose (Dextrose 50%) 25 ml Q30M PRN IV Hypoglycemia 12/19/19 19:00 03/18/20 18:59 Dextrose (Dextrose 50%) 50 ml Q30M PRN IV Hypoglycemia 12/19/19 19:00 03/18/20 18:59 Gentamicin Protocol (Gentamicin pharmacy to dose) 1 ea DAILY PRN MISC Per rx protocol 12/24/19 13:00 01/23/20 12:59 Gentamicin Sulfate 300 mg/ Sodium Chloride 117.5 ml @ 117.5 mls/ hr Q24H IVPB 12/24/19 15:00 12/31/19 14:59 12/27/19 15:05 Heparin Sodium (Porcine) (Heparin 5000 units/ml) 5,000 units EVERY 12 HOURS SUBQ 12/19/19 21:00 02/02/20 20:59 12/27/19 22:00 Meropenem 2 gm/ Sodium Chloride 100 ml @ 200 mls/hr Q8HR IVPB 12/26/19 14:00 12/31/19 13:59 12/28/19 05:22 Ondansetron HCl (Zofran) 4 mg Q6H PRN IVP Nausea & Vomiting 12/19/19 19:00 01/18/20 18:59 Patient Own Medication (Patient's Own Med) 1 ea DAILY ORAL 12/21/19 18:00 01/20/20 17:59 12/27/19 09:47 Polyethylene Glycol (Miralax) 17 gm DAILYPRN PRN ORAL Constipation 12/19/19 19:00 01/18/20 18:59 12/28/19 05:24 Temazepam (Restoril) 15 mg HSPRN PRN ORAL Insomnia 12/23/19 15:00 12/30/19 14:59 12/27/19 21:59 Height (Feet): 5 Height (Inches): 6.00 Weight (Pounds): 132 Objective exam stable granulation tissue Chas Larsen MD Dec 28, 2019 07:31
--- NOTE | 2019-12-28 07:38 | NUR ---
NURSE NOTES:pt is awake in the bed. respiration is even and unlabored. denies any gonzalez and discomfort at this time. no acute distress noted at this time. call light placed within reach.
[2019-12-28 07:50] LABS: BASOPHILS % (AUTO) 0.7 % (0.0-2.0); EOSINOPHILS % (AUTO) 1.1 % (0.0-3.0); HEMATOCRIT 37.2 % (42.0-52.0); HEMOGLOBIN 12.3 G/DL (14.2-18.0); LYMPHOCYTES % (AUTO) 9.5 % (20.0-45.0); MEAN CORPUSCULAR VOLUME 95 FL (80-99); MONOCYTES % (AUTO) 8.9 % (1.0-10.0); NEUTROPHILS % (AUTO) 79.8 % (45.0-75.0); PLATELET COUNT 392 K/UL (150-450); RED BLOOD COUNT 3.93 M/UL (4.70-6.10); RED CELL DISTRIBUTION WIDTH 16.5 % (11.6-14.8); WHITE BLOOD COUNT 16.2 K/UL (4.8-10.8)
[2019-12-28 08:00] VITALS: BP 135/74
[2019-12-28 08:17] LABS: ANION GAP 3 mmol/L (5-15); BLOOD UREA NITROGEN 19 mg/dL (7-18); CARBON DIOXIDE 34 MMOL/L (21-32); CHLORIDE 102 MMOL/L (98-107); CREATININE 1.1 MG/DL (0.55-1.30); POTASSIUM 3.6 MMOL/L (3.5-5.1); SODIUM 139 MMOL/L (136-145)
--- NOTE | 2019-12-28 08:18 | Infectious Diseases Prog Note ---
Assessment/Plan 59yo M with: UTI -u/a wbc 40/6-, nit +, leuk +2; ucx >100k ESBL e. clocae complex Penile necrotic wound infection- polymicrobial -wound cx ESBL E.coli, PsA (R levaquin, I Meropenem), E, gallinarum (R vanco, S Amp) Afebrile Leukocytosis, increased Urethral CA dx'ed 2019 sp chemotherapy x 12 sessions and radiation x8 sessions and surgical intervention (follows at [facility]) hx of penile abscess HIV on Symtuza (dx'ed 20 yrs ago) Former smoker (quit 8yrs ago) Recurrent UTI on bactrim ppx Urinary retention sp chronic suprapubic tube SNF resident ([facility]) Plan: Daptomycin #5 12/24 CK =11 Meropenem #7 for ESBL Gentamycin #5 as I PsA to Meropenem Duration of abx TBD pending wound care / debridement plan per Urology / Surgery -12/23 SP IV Vancomycin #6 -12/21 SP Cefepime #4, Flagyl #2 -12/18 SP Meropenem x1 -f/u cx -Monitor CBC/CMP, temperatures -wound cx -Uro and Gen sx f/u : penis is fully necrotic and hanging off. will discuss consideration of operative debridement including penis. not recommended at bedside given likely bleeding with debridement. -wound care per surgical team D/w RN Thank you for consulting [facility]. Will continue to follow along with you. Subjective Allergies: Coded Allergies: CODEINE (Verified Allergy, Unknown, 02/05/10) AF WBC 16, stable NAD Very quiet voice Isn't sure about more debridement, but says they are doing to do a superficial cleaning "soon" of his groin wound Objective Last 24 Hour Vital Signs Date Time Temp Pulse Resp B/P (MAP) Pulse Ox O2 Delivery O2 Flow Rate FiO2 12/28/19 04:00 98.3 90 18 107/65 (79) 92 12/28/19 00:00 97.9 91 18 125/72 (89) 96 12/27/19 21:00 Room Air 12/27/19 20:00 97.6 88 18 152/82 (105) 97 12/27/19 19:30 85 18 95 Room Air 21 12/27/19 16:00 98.3 62 19 103/63 (76) 97 12/27/19 12:00 97.9 90 17 118/67 (84) 97 12/27/19 09:23 95 18 94 Room Air 21 12/27/19 09:00 Room Air Height (Feet): 5 Height (Inches): 6.00 Weight (Pounds): 132 Gen: NAD in bed HEENT: NCAT, EOMI, PERRL CV: RRR Pulm: CTAB on RA Abd: Soft, NTND Ext: No c/c/e : Necrotic penis with swollen base and open wound wo significant discharge or surrounding erythema Neuro: Awake Laboratory Tests Test 12/28/19 07:22 White Blood Count 16.2 K/UL (4.8-10.8) H Red Blood Count 3.93 M/UL (4.70-6.10) L Hemoglobin 12.3 G/DL (14.2-18.0) L Hematocrit 37.2 % (42.0-52.0) L Mean Corpuscular Volume 95 FL (80-99) Mean Corpuscular Hemoglobin 31.2 PG (27.0-31.0) H Mean Corpuscular Hemoglobin Concent 32.9 G/DL (32.0-36.0) Red Cell Distribution Width 16.5 % (11.6-14.8) H Platelet Count 392 K/UL (150-450) Mean Platelet Volume 5.6 FL (6.5-10.1) L Neutrophils (%) (Auto) 79.8 % (45.0-75.0) H Lymphocytes (%) (Auto) 9.5 % (20.0-45.0) L Monocytes (%) (Auto) 8.9 % (1.0-10.0) Eosinophils (%) (Auto) 1.1 % (0.0-3.0) Basophils (%) (Auto) 0.7 % (0.0-2.0) Sodium Level Pending Potassium Level Pending Chloride Level Pending Carbon Dioxide Level Pending Blood Urea Nitrogen Pending Creatinine Pending Estimat Glomerular Filtration Rate Pending Glucose Level Pending Calcium Level Pending Current Medications Medications (Trade) Dose Ordered Sig/Virginie Route PRN Reason Start Time Stop Time Status Last Admin Dose Admin Acetaminophen (Tylenol) 650 mg Q4H PRN ORAL fever 12/19/19 19:00 01/18/20 18:59 Acetaminophen/ Hydrocodone Bitart ([place] 10/325) 1 tab Q4H PRN ORAL Moderate Pain (Pain Scale 4-6) 12/23/19 15:00 12/30/19 14:59 12/24/19 13:16 Acetaminophen/ Hydrocodone Bitart ([place] 10/325) 2 tab Q4H PRN ORAL Severe Pain (Pain Scale 7-10) 12/23/19 15:00 12/30/19 14:59 12/27/19 20:11 Albuterol/ Ipratropium (Albuterol/ Ipratropium) 3 ml Q4H PRN HHN Shortness of Breath 12/23/19 15:00 12/28/19 14:59 Daptomycin 250 mg/ Sodium Chloride 55 ml @ 100 mls/hr Q24H IV 12/24/19 16:00 12/31/19 15:59 12/27/19 16:03 Dextrose (Dextrose 50%) 25 ml Q30M PRN IV Hypoglycemia 12/19/19 19:00 03/18/20 18:59 Dextrose (Dextrose 50%) 50 ml Q30M PRN IV Hypoglycemia 12/19/19 19:00 03/18/20 18:59 Gentamicin Protocol (Gentamicin pharmacy to dose) 1 ea DAILY PRN MISC Per rx protocol 12/24/19 13:00 01/23/20 12:59 Gentamicin Sulfate 300 mg/ Sodium Chloride 117.5 ml @ 117.5 mls/ hr Q24H IVPB 12/24/19 15:00 12/31/19 14:59 12/27/19 15:05 Heparin Sodium (Porcine) (Heparin 5000 units/ml) 5,000 units EVERY 12 HOURS SUBQ 12/19/19 21:00 02/02/20 20:59 12/27/19 22:00 Meropenem 2 gm/ Sodium Chloride 100 ml @ 200 mls/hr Q8HR IVPB 12/26/19 14:00 12/31/19 13:59 12/28/19 05:22 Ondansetron HCl (Zofran) 4 mg Q6H PRN IVP Nausea & Vomiting 12/19/19 19:00 01/18/20 18:59 Patient Own Medication (Patient's Own Med) 1 ea DAILY ORAL 12/21/19 18:00 01/20/20 17:59 12/27/19 09:47 Polyethylene Glycol (Miralax) 17 gm DAILYPRN PRN ORAL Constipation 12/19/19 19:00 01/18/20 18:59 12/28/19 05:24 Temazepam (Restoril) 15 mg HSPRN PRN ORAL Insomnia 12/23/19 15:00 12/30/19 14:59 12/27/19 21:59 Suellen Riojas M.D. Dec 28, 2019 08:18
[2019-12-28 08:21] LABS: CALCIUM 14.6 MG/DL (8.5-10.1)
[2019-12-28] MEDS: Heparin 5000 units/ml inj SUBQ SCH ×2 (09:27→21:33)
[2019-12-28] MEDS: SYMTUZA ORAL SCH (09:28)
[2019-12-28 12:00] VITALS: BP 130/79
--- NOTE | 2019-12-28 15:08 | NUR ---
CASE MANAGEMENT:REVIEW SI;PENILE NECROTIC WOUND INFECTION. HYPERCALCEMIA. URETHRAL CANCER. HYPERCALCEMIA. SEPSIS. 98.9 91 18 135/75 92% ON RA WBC 16.2 CA 14.6 IS;MEROPENEM IV Q8 DAPTOMYCIN IV Q24 GENTAMICIN IV Q24 HEPARIN SUBQ Q12 MED SURG STATUS DCP;FROM [facility] PLAN; NEPHRO CONSULT D/T HYPERCALCEMIA
[2019-12-28] MEDS: Gentamicin inj 300 MG in NS 110 ML IVPB SCH (15:32)
[2019-12-28] MEDS: HYDROcodone/Acetamin 10/325 tab ORAL PRN ×2 (15:44→21:52)
[2019-12-28 16:00] VITALS: BP 125/73
[2019-12-28] MEDS: DAPTOmycin 250 MG in NS 55 ML IV SCH (16:46)
--- NOTE | 2019-12-28 18:57 | Surgery Progress Note ---
Surgery Progress Note Subjective Additional Comments no acute events comfortable stable Objective Last 24 Hour Vital Signs Date Time Temp Pulse Resp B/P (MAP) Pulse Ox O2 Delivery O2 Flow Rate FiO2 12/28/19 16:00 98.5 69 17 125/73 (90) 97 12/28/19 12:00 98.4 60 18 130/79 (96) 98 12/28/19 09:00 Room Air 12/28/19 08:00 98.9 59 17 135/74 (94) 99 12/28/19 04:00 98.3 90 18 107/65 (79) 92 12/28/19 00:00 97.9 91 18 125/72 (89) 96 12/27/19 21:00 Room Air 12/27/19 20:00 97.6 88 18 152/82 (105) 97 12/27/19 19:30 85 18 95 Room Air 21 I&O Intake and Output 12/27/19 12/28/19 19:00 07:00 Intake Total 500 ml Output Total 1200 ml 1400 ml Balance -1200 ml -900 ml Intake Oral 500 ml Output Urine Total 1200 ml 1400 ml Dressing: saturated Cardiovascular: RSR Respiratory: decreased breath sounds Abdomen: soft, non-tender, present bowel sounds Extremities: no edema, no tenderness, no cyanosis Laboratory Tests Test 12/28/19 07:22 White Blood Count 16.2 K/UL (4.8-10.8) H Red Blood Count 3.93 M/UL (4.70-6.10) L Hemoglobin 12.3 G/DL (14.2-18.0) L Hematocrit 37.2 % (42.0-52.0) L Mean Corpuscular Volume 95 FL (80-99) Mean Corpuscular Hemoglobin 31.2 PG (27.0-31.0) H Mean Corpuscular Hemoglobin Concent 32.9 G/DL (32.0-36.0) Red Cell Distribution Width 16.5 % (11.6-14.8) H Platelet Count 392 K/UL (150-450) Mean Platelet Volume 5.6 FL (6.5-10.1) L Neutrophils (%) (Auto) 79.8 % (45.0-75.0) H Lymphocytes (%) (Auto) 9.5 % (20.0-45.0) L Monocytes (%) (Auto) 8.9 % (1.0-10.0) Eosinophils (%) (Auto) 1.1 % (0.0-3.0) Basophils (%) (Auto) 0.7 % (0.0-2.0) Sodium Level 139 MMOL/L (136-145) Potassium Level 3.6 MMOL/L (3.5-5.1) Chloride Level 102 MMOL/L (98-107) Carbon Dioxide Level 34 MMOL/L (21-32) H Anion Gap 3 mmol/L (5-15) L Blood Urea Nitrogen 19 mg/dL (7-18) H Creatinine 1.1 MG/DL (0.55-1.30) Estimat Glomerular Filtration Rate > 60 mL/min (>60) Glucose Level 99 MG/DL (74-106) Calcium Level 14.6 MG/DL (8.5-10.1) *H Plan Problems: (1) Penile abscess Assessment & Plan: 61-year-old male with known urethral cancer status post chemoradiation presented with worsening wound necrosis and potential infection of the site. Patient seen prior penis necrosis falling off now remaining soft tissue in the malignancy region also with necrotic nonviable tissue identified. Drainage is serosanguineous at times sometimes serious and does not seem significant purulent. The cellulitis is minimal. Patient's labs noted. Given patient's history condition immunocompromise status recommend IV antibiotics. I discussed the patient and considerations for debriding some of the nonviable tissue though this will not in any way improve his cancer stated could help with local wound care. Patient expressed understanding we will continue to follow with local care and provide as necessary. No drainage of abscess identified at this time we will monitor thank you f/u with primary onc as per heme labs noted on rx wounds and slough/necrotic tissue debridement at bedside penis is fully necrotic and hanging off. will discuss consideration of operative debridement including penis. not recommended at bedside given likely bleeding with debridement. does not want further debridement at this time states feels much better wound less foul odor after last clean ing d/c planning (2) Urethral cancer (3) Abscess (4) Sepsis (5) Catheter-associated urinary tract infection Romain Li Dec 28, 2019 18:57
--- NOTE | 2019-12-28 19:09 | Internal Med Progress Note ---
Subjective Date of Service: Dec 28, 2019 Physician Name MartelJavier Attending Physician Ron Enriquez MD Current Medications Medications (Trade) Dose Ordered Sig/Virginie Route PRN Reason Start Time Stop Time Status Last Admin Dose Admin Acetaminophen (Tylenol) 650 mg Q4H PRN ORAL fever 12/19/19 19:00 01/18/20 18:59 Acetaminophen/ Hydrocodone Bitart ([place] 10/325) 1 tab Q4H PRN ORAL Moderate Pain (Pain Scale 4-6) 12/23/19 15:00 12/30/19 14:59 12/28/19 15:44 Acetaminophen/ Hydrocodone Bitart ([place] 10/325) 2 tab Q4H PRN ORAL Severe Pain (Pain Scale 7-10) 12/23/19 15:00 12/30/19 14:59 12/27/19 20:11 Daptomycin 250 mg/ Sodium Chloride 55 ml @ 100 mls/hr Q24H IV 12/24/19 16:00 12/31/19 15:59 12/28/19 16:46 Dextrose (Dextrose 50%) 25 ml Q30M PRN IV Hypoglycemia 12/19/19 19:00 03/18/20 18:59 Dextrose (Dextrose 50%) 50 ml Q30M PRN IV Hypoglycemia 12/19/19 19:00 03/18/20 18:59 Gentamicin Protocol (Gentamicin pharmacy to dose) 1 ea DAILY PRN MISC Per rx protocol 12/24/19 13:00 01/23/20 12:59 Gentamicin Sulfate 300 mg/ Sodium Chloride 117.5 ml @ 117.5 mls/ hr Q24H IVPB 12/24/19 15:00 12/31/19 14:59 12/28/19 15:32 Heparin Sodium (Porcine) (Heparin 5000 units/ml) 5,000 units EVERY 12 HOURS SUBQ 12/19/19 21:00 02/02/20 20:59 12/28/19 09:27 Meropenem 2 gm/ Sodium Chloride 100 ml @ 200 mls/hr Q8HR IVPB 12/26/19 14:00 12/31/19 13:59 12/28/19 13:35 Ondansetron HCl (Zofran) 4 mg Q6H PRN IVP Nausea & Vomiting 12/19/19 19:00 01/18/20 18:59 Patient Own Medication (Patient's Own Med) 1 ea DAILY ORAL 12/21/19 18:00 01/20/20 17:59 12/28/19 09:28 Polyethylene Glycol (Miralax) 17 gm DAILYPRN PRN ORAL Constipation 12/19/19 19:00 01/18/20 18:59 12/28/19 05:24 Temazepam (Restoril) 15 mg HSPRN PRN ORAL Insomnia 12/23/19 15:00 12/30/19 14:59 12/27/19 21:59 Allergies: Coded Allergies: CODEINE (Verified Allergy, Unknown, 02/05/10) ROS Limited/Unobtainable: No Constitutional: Reports: no symptoms HEENT: Reports: no symptoms Cardiovascular: Reports: no symptoms Respiratory: Reports: no symptoms Gastrointestinal/Abdominal: Reports: no symptoms Genitourinary: Reports: no symptoms Neurologic/Psychiatric: Reports: no symptoms Subjective 59 YO M with H/O urethral cancer admitted with Penile abscess and UTI. Cover for Int Med-Dr Enriquez. S/P bedside debridement 12/23/19 Objective Last Vital Signs Date Time Temp Pulse Resp B/P (MAP) Pulse Ox O2 Delivery O2 Flow Rate FiO2 12/28/19 16:00 98.5 69 17 125/73 (90) 97 12/28/19 09:00 Room Air 12/27/19 19:30 21 12/19/19 16:21 5.0 Laboratory Tests Test 12/28/19 07:22 White Blood Count 16.2 K/UL (4.8-10.8) H Red Blood Count 3.93 M/UL (4.70-6.10) L Hemoglobin 12.3 G/DL (14.2-18.0) L Hematocrit 37.2 % (42.0-52.0) L Mean Corpuscular Volume 95 FL (80-99) Mean Corpuscular Hemoglobin 31.2 PG (27.0-31.0) H Mean Corpuscular Hemoglobin Concent 32.9 G/DL (32.0-36.0) Red Cell Distribution Width 16.5 % (11.6-14.8) H Platelet Count 392 K/UL (150-450) Mean Platelet Volume 5.6 FL (6.5-10.1) L Neutrophils (%) (Auto) 79.8 % (45.0-75.0) H Lymphocytes (%) (Auto) 9.5 % (20.0-45.0) L Monocytes (%) (Auto) 8.9 % (1.0-10.0) Eosinophils (%) (Auto) 1.1 % (0.0-3.0) Basophils (%) (Auto) 0.7 % (0.0-2.0) Sodium Level 139 MMOL/L (136-145) Potassium Level 3.6 MMOL/L (3.5-5.1) Chloride Level 102 MMOL/L (98-107) Carbon Dioxide Level 34 MMOL/L (21-32) H Anion Gap 3 mmol/L (5-15) L Blood Urea Nitrogen 19 mg/dL (7-18) H Creatinine 1.1 MG/DL (0.55-1.30) Estimat Glomerular Filtration Rate > 60 mL/min (>60) Glucose Level 99 MG/DL (74-106) Calcium Level 14.6 MG/DL (8.5-10.1) *H Intake and Output 12/27/19 12/28/19 19:00 07:00 Intake Total 500 ml Output Total 1200 ml 1400 ml Balance -1200 ml -900 ml Intake Oral 500 ml Output Urine Total 1200 ml 1400 ml Objective PHYSICAL EXAMINATION: GENERAL: The patient is a well-developed and well-nourished male, in no apparent distress. HEENT: Eyes, pupils equal and responsive to light and accommodation. Extraocular movements are intact. NECK: Supple without lymphadenopathy. CHEST: Lungs are clear to auscultation bilaterally without wheezes or rales. CARDIOVASCULAR: Regular rate. S1, S2 are normal without murmurs, rubs, or gallops. ABDOMEN: Soft, nontender, and nondistended. Positive bowel sounds. No evidence of hepatosplenomegaly. Currently, no rebound or guarding noted. EXTREMITIES: Negative for clubbing, cyanosis, or edema. RECTAL AND GENITAL: There is a large fungating mass over the penile and scrotal region. There is foul odor. NEUROLOGICAL: Cranial nerves II through XII are grossly intact without focal deficits. Motor strength is 5/5 bilaterally intact. Deep tendon reflexes are 2+, plantar. Assessment/Plan Assessment/Plan ASSESSMENT: This is a 59-year-old male with: 1. Urinary tract infection=ESBL Enterobacter cloacae 2. Penile abscess. 3. HIV. 4. Urethral cancer. 5. Hypercalcemia TREATMENT: 1. Urinary tract infection/penile abscess. Antibiotics=meropenem, daptomycin and gentamicin Infectious Disease consulltation = Dr. Rider. 2. HIV. Continue Symtuza as above. 3. Penile/urethral cancer. Oncology consultation = Dr. Mandeep Horta. Urology consultation = Dr. Chas Larsen. 4. S/P bedside debridement; recommend debridement in OR per surgery 5. Await nephrology=Dr Doran. PTH pending Javier Martel MD Dec 28, 2019 19:09
--- NOTE | 2019-12-28 19:13 | NUR ---
NURSE HAND-OFF: Important Events on Shift:n/a Patient Status: stable Diet: regular Pending Orders: n/a Pending Results/Labs:n/a Pending MD notification:n/a Latest Vital Signs: Temperature 98.5 , Pulse 69 , B/P 125 /73 , Respiratory Rate 17 , O2 SAT 97 , Room Air, O2 Flow Rate 5.0 . Vital Sign Comment: stable Latest Rahman Fall Score: 35 Fall Risk: Medium Risk Safety Measures: Call light Within Reach, Bed Alarm Zone 1, Side Rails Side Rails x2, Bed position Low and Locked. Fall Precautions: Yellow Socks Patient Fall Education Report given to
--- NOTE | 2019-12-28 19:36 | NUR ---
NURSE NOTES: Received report from MADAN Ricci. AAO x 2-3, confused, on room air. Supura pubic cath in place and draining urine well. Dressings on perineal area intact. IV site intact and patent. Pt c/o pain 5/10 on perineal area. Bed locked, lowest position, alarm on, side rails up, call light within reach. Will continue to monitor.
[2019-12-28 20:00] VITALS: BP 107/69
--- NOTE | 2019-12-28 20:39 | Consultation ---
Consult Note Consult Note asked to eval for hypercalcemia initial labs ordered iv fluid started HPI: 59-year-old male history of HIV on medication, urethral cancer, history of penile abscess presents for penile abscess. Patient has been admitted multiple times for infections secondary to his malignancy of his urethra. He is followed by urology and oncology. He has completed chemotherapy and undergone radiation. He denies any fevers. He was recently admitted here for infection at his site of his malignancy. Currently today he presents from his alf facility due to concern for worsening malignancy. Allergies: CODEINE (Verified Allergy, Unknown, 02/05/10) COVID-19 Screening Contact w/high risk pt: No Experienced COVID-19 symptoms?: No COVID-19 Testing performed DAIRY MANAGER: No - unk Hx Cardiac Problems: No Hx Cancer: Yes - Urethral cancer Vital Signs Date Time Temp Pulse Resp B/P (MAP) Pulse Ox O2 Delivery O2 Flow Rate FiO2 12/19/19 15:42 98.4 99 19 95/57 (70) 93 Room Air Sp02 EP Interpretation: reviewed, normal GENERAL: The patient is a well-developed and well-nourished male, in no apparent distress. HEENT: Eyes, pupils equal and responsive to light and accommodation. Extraocular movements are intact. NECK: Supple without lymphadenopathy. CHEST: Lungs are clear to auscultation bilaterally without wheezes or rales. CARDIOVASCULAR: Regular rate. S1, S2 are normal without murmurs, rubs, or gallops. ABDOMEN: Soft. Suprapubic tube is in place. Urine is charli. GENITOURINARY: Reveals old dry gangrenous tissue at the penis and scrotal area, which appears similar to that during the last admission. EXTREMITIES: Negative for clubbing, cyanosis, or edema. . Assessment/Plan Hypercalcemia Suprapubic catheter Urinary tract infection Penile abscess HIV Urethral cancer Suggestion: Hydrate Lasix Pamidronate Nasal calcitonin Monitor serum calcium I spent an additional 36 minutes on review of medical records including prior hospital records,consult notes, progress notes, procedures ,imaging labs, hemodynamics, and other clinical documentation. Over 35 min Keaton Doran MD Dec 28, 2019 20:39
[2019-12-28] MEDS: D5NS 1,000 ML IV SCH (21:32)
--- NOTE | 2019-12-28 22:03 | NUR ---
NURSE NOTES: Urine collected and sent to the lab
[2019-12-28 22:51] LABS: APPEARANCE,URINE CLOUDY; BILIRUBIN, URINE NEGATIVE (NEGATIVE); COLOR,URINE PALE YELLOW; GLUCOSE, URINE (UA) NEGATIVE (NEGATIVE); KETONES,URINE NEGATIVE (NEGATIVE); LEUKOCYTE ESTERASE ,URINE 1+ (NEGATIVE); NITRITE,URINE NEGATIVE (NEGATIVE); PH,URINE 7 (4.5-8.0); PROTEIN,URINE 2+ (NEGATIVE); UROBILINOGEN,URINE 4 MG/DL (0.0-1.0)
[2019-12-29] VITALS: BP 90/58
--- NOTE | 2019-12-29 01:00 | NUR ---
NURSE NOTES: Wound dressing changed and small serosanguineous drainage noted.
[2019-12-29 04:00] VITALS: BP 101/64
[2019-12-29] MEDS: Miralax 17gm pkt ORAL PRN (05:14)
--- NOTE | 2019-12-29 06:52 | Hematology/Onc Progress Note ---
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 Leonard at [facility], per patient is his med onc --> conner 12/21 Dr. Leonard [facility] further f/u --> labs have been reviewed, hold off on tumor markers --> has been seen by Dr. Larsen here and recs noted debridement at some point --> 12/22 s/p debridement at bedside # Leukocytosis likely due to Penile abscess --> requires abx as per id vanc/flagyl/cefepime-->vanc/chelsea-->chelsea/dap/gent --> wbc 13-->14-->13--.12.4-->16 # HYpercalcemia --> Ca+ 14.6 --> repeat as needed --> ivf, lasix, calcitonin per renal # Anemia likely chronic disease v other cause --> hgb 12 # Urinary retention with chronic suprapubic tube. --> per uro, surg care # Probable neurogenic bladder. # Urinary tract infection and colonization. # Hematuria. --> improved # Dvt ppx --> hep sq Appreciate consultation and conner RN Subjective HEENT: Denies: no symptoms, eye pain, blurred vision, tearing, double vision, ear pain, ear discharge, nose pain, nose congestion, throat pain, throat swelling, mouth pain, mouth swelling, other Cardiovascular: Denies: no symptoms, chest pain, edema, irregular heart rate, lightheadedness, palpitations, syncope, other Respiratory: Denies: no symptoms, cough, shortness of breath, SOB with excertion, SOB at rest, sputum, wheezing, other Gastrointestinal/Abdominal: Denies: no symptoms, abdomen distended, abdominal pain, black stools, tarry stools, blood in stool, constipated, diarrhea, difficu lty swallowing, nausea, poor appetite, poor fluid intake, rectal bleeding, vomiting, other Neurologic/Psychiatric: Denies: no symptoms, anxiety, depressed, emotional problems, headache, numbness, paresthesia, pre-existing deficit, seizure, tingling, tremors, weakness, other Endocrine: Denies: no symptoms, excessive sweating, flushing, intolerance to cold, intolerance to heat, increased hunger, increased thirst, increased urine, unexplained weight gain, unexplained weight loss, other Allergies: Coded Allergies: CODEINE (Verified Allergy, Unknown, 02/05/10) Subjective 12/21 is on abx vanc/flagyl, cefepime, on hep, suprapub catheter functional 12/22 no major events, debridement at some pt, dw Dr. Leonard yesterday [facility] 12/23 underwent bedside debridement yesterday, feeling better, dressing in place 12/24 meds reviewed, meds noted, no bleeding, dw rn 12/26 on chelsea, dapto, gent, no bleeding, meds noted, labs reviewed 12/27 wound care, dressing changes, labs reviewed, no bleeding 12/28 labs pending, meds reviewed, no bleeding or night sweats Objective Objective Current Medications Medications (Trade) Dose Ordered Sig/Virginie Route PRN Reason Start Time Stop Time Status Last Admin Dose Admin Acetaminophen (Tylenol) 650 mg Q4H PRN ORAL fever 12/19/19 19:00 01/18/20 18:59 Acetaminophen/ Hydrocodone Bitart ([place] 10/325) 1 tab Q4H PRN ORAL Moderate Pain (Pain Scale 4-6) 12/23/19 15:00 12/30/19 14:59 12/28/19 15:44 Acetaminophen/ Hydrocodone Bitart ([place] 10/325) 2 tab Q4H PRN ORAL Severe Pain (Pain Scale 7-10) 12/23/19 15:00 12/30/19 14:59 12/28/19 21:52 Daptomycin 250 mg/ Sodium Chloride 55 ml @ 100 mls/hr Q24H IV 12/24/19 16:00 12/31/19 15:59 12/28/19 16:46 Dextrose (Dextrose 50%) 25 ml Q30M PRN IV Hypoglycemia 12/19/19 19:00 03/18/20 18:59 Dextrose (Dextrose 50%) 50 ml Q30M PRN IV Hypoglycemia 12/19/19 19:00 03/18/20 18:59 Dextrose/Sodium Chloride 1,000 ml @ 75 mls/hr [id number] IV 12/28/19 20:45 01/27/20 20:44 12/28/19 21:32 Gentamicin Protocol (Gentamicin pharmacy to dose) 1 ea DAILY PRN MISC Per rx protocol 12/24/19 13:00 01/23/20 12:59 Gentamicin Sulfate 300 mg/ Sodium Chloride 117.5 ml @ 117.5 mls/ hr Q24H IVPB 12/24/19 15:00 12/31/19 14:59 12/28/19 15:32 Heparin Sodium (Porcine) (Heparin 5000 units/ml) 5,000 units EVERY 12 HOURS SUBQ 12/19/19 21:00 02/02/20 20:59 12/28/19 21:33 Meropenem 2 gm/ Sodium Chloride 100 ml @ 200 mls/hr Q8HR IVPB 12/26/19 14:00 12/31/19 13:59 12/29/19 05:14 Ondansetron HCl (Zofran) 4 mg Q6H PRN IVP Nausea & Vomiting 12/19/19 19:00 01/18/20 18:59 Patient Own Medication (Patient's Own Med) 1 ea DAILY ORAL 12/21/19 18:00 01/20/20 17:59 12/28/19 09:28 Polyethylene Glycol (Miralax) 17 gm DAILYPRN PRN ORAL Constipation 12/19/19 19:00 01/18/20 18:59 12/29/19 05:14 Temazepam (Restoril) 15 mg HSPRN PRN ORAL Insomnia 12/23/19 15:00 12/30/19 14:59 12/27/19 21:59 Last 24 Hour Vital Signs Date Time Temp Pulse Resp B/P (MAP) Pulse Ox O2 Delivery O2 Flow Rate FiO2 12/29/19 04:00 97.0 78 17 101/64 (76) 94 12/29/19 00:00 96.9 76 19 90/58 (69) 95 12/28/19 21:00 Room Air 12/28/19 20:00 96.8 104 21 107/69 (82) 94 12/28/19 16:00 98.5 69 17 125/73 (90) 97 12/28/19 12:00 98.4 60 18 130/79 (96) 98 12/28/19 09:00 Room Air 12/28/19 08:00 98.9 59 17 135/74 (94) 99 12/28/19 04:00 98.3 90 18 107/65 (79) 92 12/28/19 00:00 97.9 91 18 125/72 (89) 96 12/27/19 21:00 Room Air 12/27/19 20:00 97.6 88 18 152/82 (105) 97 12/27/19 19:30 85 18 95 Room Air 21 12/27/19 16:00 98.3 62 19 103/63 (76) 97 12/27/19 12:00 97.9 90 17 118/67 (84) 97 12/27/19 09:23 95 18 94 Room Air 21 12/27/19 09:00 Room Air 12/27/19 08:00 98.9 93 19 111/69 (83) 96 Intake and Output 12/28/19 12/29/19 19:00 07:00 Intake Total 150 ml 1085 ml Output Total 1250 ml 1000 ml Balance -1100 ml 85 ml Intake Oral 150 ml IV Total 725 ml Other 360 ml Output Urine Total 1250 ml 1000 ml Labs Test 12/26/19 07:55 12/27/19 05:50 12/28/19 07:22 12/28/19 21:30 White Blood Count 17.3 K/UL (4.8-10.8) 15.8 K/UL (4.8-10.8) 16.2 K/UL (4.8-10.8) Red Blood Count 3.50 M/UL (4.70-6.10) 3.83 M/UL (4.70-6.10) 3.93 M/UL (4.70-6.10) Hemoglobin 12.7 G/DL (14.2-18.0) 12.4 G/DL (14.2-18.0) 12.3 G/DL (14.2-18.0) Hematocrit 34.0 % (42.0-52.0) 36.6 % (42.0-52.0) 37.2 % (42.0-52.0) Mean Corpuscular Volume 97 FL (80-99) 95 FL (80-99) 95 FL (80-99) Mean Corpuscular Hemoglobin 36.1 PG (27.0-31.0) 32.3 PG (27.0-31.0) 31.2 PG (27.0-31.0) Mean Corpuscular Hemoglobin Concent 37.2 G/DL (32.0-36.0) 33.8 G/DL (32.0-36.0) 32.9 G/DL (32.0-36.0) Red Cell Distribution Width 20.2 % (11.6-14.8) 16.5 % (11.6-14.8) 16.5 % (11.6-14.8) Platelet Count 377 K/UL (150-450) 379 K/UL (150-450) 392 K/UL (150-450) Mean Platelet Volume 5.3 FL (6.5-10.1) 5.4 FL (6.5-10.1) 5.6 FL (6.5-10.1) Neutrophils (%) (Auto) 80.4 % (45.0-75.0) 79.2 % (45.0-75.0) 79.8 % (45.0-75.0) Lymphocytes (%) (Auto) 9.0 % (20.0-45.0) 10.6 % (20.0-45.0) 9.5 % (20.0-45.0) Monocytes (%) (Auto) 9.3 % (1.0-10.0) 8.3 % (1.0-10.0) 8.9 % (1.0-10.0) Eosinophils (%) (Auto) 0.9 % (0.0-3.0) 1.2 % (0.0-3.0) 1.1 % (0.0-3.0) Basophils (%) (Auto) 0.4 % (0.0-2.0) 0.7 % (0.0-2.0) 0.7 % (0.0-2.0) Sodium Level 139 MMOL/L (136-145) 139 MMOL/L (136-145) Potassium Level 3.3 MMOL/L (3.5-5.1) 3.6 MMOL/L (3.5-5.1) Chloride Level 103 MMOL/L (98-107) 102 MMOL/L (98-107) Carbon Dioxide Level 32 MMOL/L (21-32) 34 MMOL/L (21-32) Anion Gap 4 mmol/L (5-15) 3 mmol/L (5-15) Blood Urea Nitrogen 15 mg/dL (7-18) 19 mg/dL (7-18) Creatinine 1.0 MG/DL (0.55-1.30) 1.1 MG/DL (0.55-1.30) Estimat Glomerular Filtration Rate > 60 mL/min (>60) > 60 mL/min (>60) Glucose Level 95 MG/DL (74-106) 99 MG/DL (74-106) Calcium Level 14.0 MG/DL (8.5-10.1) 14.6 MG/DL (8.5-10.1) Urine Color Pale yellow Urine Appearance Cloudy Urine pH 7 (4.5-8.0) Urine Specific [place] 1.010 (1.005-1.035) Urine Protein 2+ (NEGATIVE) Urine Glucose (UA) Negative (NEGATIVE) Urine Ketones Negative (NEGATIVE) Urine Blood 4+ (NEGATIVE) Urine Nitrite Negative (NEGATIVE) Urine Bilirubin Negative (NEGATIVE) Urine Urobilinogen 4 MG/DL (0.0-1.0) Urine Leukocyte Esterase 1+ (NEGATIVE) Urine RBC 15-20 /HPF (0 - 0) Urine WBC 5-10 /HPF (0 - 0) Urine Squamous Epithelial Cells Few /LPF (NONE/OCC) Urine Amorphous Sediment Many /LPF (NONE) Urine Bacteria Moderate /HPF (NONE) Test 12/29/19 05:40 Height (Feet): 5 Height (Inches): 6.00 Weight (Pounds): 132 Objective Physical Exam Sp02 EP Interpretation: reviewed, normal General: no apparent distress, Chronically Ill Heent: normocephalic, atraumatic Respiratory: lungs clear, normal breath sounds Cardiovascular: normal peripheral pulses, regular rate Gastrointestinal: non tender, soft, non-distended, no guarding Genitourinary: other - Large area of necrosis noted in the genital region with purulent discharge, ++suprapub catheter Neurologic: alert, oriented x3 Skin: normal color, warm/dry Mandeep Horta MD Dec 29, 2019 06:52
[2019-12-29 07:19] LABS: BASOPHILS % (AUTO) 0.4 % (0.0-2.0); EOSINOPHILS % (AUTO) 1.1 % (0.0-3.0); HEMATOCRIT 33.2 % (42.0-52.0); HEMOGLOBIN 12.6 G/DL (14.2-18.0); LYMPHOCYTES % (AUTO) 12.5 % (20.0-45.0); MEAN CORPUSCULAR VOLUME 100 FL (80-99); NEUTROPHILS % (AUTO) 76.1 % (45.0-75.0); PLATELET COUNT 367 K/UL (150-450); RED BLOOD COUNT 3.31 M/UL (4.70-6.10); WHITE BLOOD COUNT 14.8 K/UL (4.8-10.8)
--- NOTE | 2019-12-29 07:26 | NUR ---
NURSE HAND-OFF: Important Events on Shift:low BP, pain, wound care Patient Status: stable Diet: reg Pending Orders: N Pending Results/Labs:AM labs Pending MD notification: Latest Vital Signs: Temperature 97.0 , Pulse 78 , B/P 101 /64 , Respiratory Rate 17 , O2 SAT 94 , Room Air, O2 Flow Rate 5.0 . Vital Sign Comment: [] Latest Rahman Fall Score: 35 Fall Risk: Medium Risk Safety Measures: Call light Within Reach, Bed Alarm Zone 1, Side Rails Side Rails x2, Bed position Low and Locked. Fall Precautions: Yellow Socks Patient Fall Education Report given to [Najin].
--- NOTE | 2019-12-29 07:27 | Infectious Diseases Prog Note ---
Assessment/Plan 59yo M with: UTI -u/a wbc 40/6-, nit +, leuk +2; ucx >100k ESBL e. clocae complex Penile necrotic wound infection- polymicrobial -wound cx ESBL E.coli, PsA (R levaquin, I Meropenem), E, gallinarum (R vanco, S Amp) Afebrile Leukocytosis, increased Urethral CA dx'ed 2019 sp chemotherapy x 12 sessions and radiation x8 sessions and surgical intervention (follows at [facility]) hx of penile abscess HIV on Symtuza (dx'ed 20 yrs ago) Former smoker (quit 8yrs ago) Recurrent UTI on bactrim ppx Urinary retention sp chronic suprapubic tube SNF resident ([facility]) Plan: Daptomycin #6 / 12/24 CK =11 Meropenem # for ESBL Gentamycin # as I PsA to Meropenem Per patient, he is going for have "surgery soon", unclear if this is true or not If no more debridement is planned, would continue IV abx for a total of 14 day c ourse then stop and continue aggressive wound care. End date of all abx to be 01/05, tentatively -12/23 SP IV Vancomycin #6 -12/21 SP Cefepime #4, Flagyl #2 -12/18 SP Meropenem x1 -f/u cx -Monitor CBC/CMP, temperatures -wound cx -Uro and Gen sx f/u : penis is fully necrotic and hanging off. will discuss consideration of operative debridement including penis. not recommended at bedside given likely bleeding with debridement. -wound care per surgical team D/w RN Thank you for consulting [facility]. Will continue to follow along with you. Subjective Allergies: Coded Allergies: CODEINE (Verified Allergy, Unknown, 02/05/10) AF NAD Very quiet voice No new complaints WBC improving to 14.8 Reports he is going to have surgery on his groin wound soon Objective Last 24 Hour Vital Signs Date Time Temp Pulse Resp B/P (MAP) Pulse Ox O2 Delivery O2 Flow Rate FiO2 12/29/19 04:00 97.0 78 17 101/64 (76) 94 12/29/19 00:00 96.9 76 19 90/58 (69) 95 12/28/19 21:00 Room Air 12/28/19 20:00 96.8 104 21 107/69 (82) 94 12/28/19 16:00 98.5 69 17 125/73 (90) 97 12/28/19 12:00 98.4 60 18 130/79 (96) 98 12/28/19 09:00 Room Air 12/28/19 08:00 98.9 59 17 135/74 (94) 99 Height (Feet): 5 Height (Inches): 6.00 Weight (Pounds): 132 Gen: NAD in bed HEENT: NCAT, EOMI, PERRL CV: RRR Pulm: CTAB on RA Abd: Soft, NTND Ext: No c/c/e : Necrotic penis with swollen base and open wound wo significant discharge or surrounding erythema Neuro: Awake Laboratory Tests Test 12/28/19 21:30 12/29/19 05:40 Urine Color Pale yellow Urine Appearance Cloudy Urine pH 7 (4.5-8.0) Urine Specific [place] 1.010 (1.005-1.035) Urine Protein 2+ (NEGATIVE) H Urine Glucose (UA) Negative (NEGATIVE) Urine Ketones Negative (NEGATIVE) Urine Blood 4+ (NEGATIVE) H Urine Nitrite Negative (NEGATIVE) Urine Bilirubin Negative (NEGATIVE) Urine Urobilinogen 4 MG/DL (0.0-1.0) H Urine Leukocyte Esterase 1+ (NEGATIVE) H Urine RBC 15-20 /HPF (0 - 0) H Urine WBC 5-10 /HPF (0 - 0) H Urine Squamous Epithelial Cells Few /LPF (NONE/OCC) Urine Amorphous Sediment Many /LPF (NONE) H Urine Bacteria Moderate /HPF (NONE) H White Blood Count Pending Red Blood Count Pending Hemoglobin Pending Hematocrit Pending Mean Corpuscular Volume Pending Mean Corpuscular Hemoglobin Pending Mean Corpuscular Hemoglobin Concent Pending Red Cell Distribution Width Pending Platelet Count Pending Mean Platelet Volume Pending Neutrophils (%) (Auto) Pending Lymphocytes (%) (Auto) Pending Monocytes (%) (Auto) Pending Eosinophils (%) (Auto) Pending Basophils (%) (Auto) Pending Sodium Level Pending Potassium Level Pending Chloride Level Pending Carbon Dioxide Level Pending Blood Urea Nitrogen Pending Creatinine Pending Estimat Glomerular Filtration Rate Pending Glucose Level Pending Uric Acid Pending Calcium Level Pending Calcium (Send out) Pending Ionized Calcium (Measured) Pending Phosphorus Level Pending Magnesium Level Pending Iron Level Pending Unsaturated Iron Binding Pending Ferritin Pending Total Bilirubin Pending Gamma Glutamyl Transpeptidase Pending Aspartate Amino Transf (AST/SGOT) Pending Alanine Aminotransferase (ALT/SGPT) Pending Alkaline Phosphatase Pending Total Protein Pending Albumin Pending Globulin Pending Vitamin B12 Level Pending Folate Pending Thyroid Stimulating Hormone (TSH) Pending Parathyroid Hormone (Intact) Pending Parathyroid Hormone Related Protein Pending Current Medications Medications (Trade) Dose Ordered Sig/Vriginie Route PRN Reason Start Time Stop Time Status Last Admin Dose Admin Acetaminophen (Tylenol) 650 mg Q4H PRN ORAL fever 12/19/19 19:00 01/18/20 18:59 Acetaminophen/ Hydrocodone Bitart ([place] 10/325) 1 tab Q4H PRN ORAL Moderate Pain (Pain Scale 4-6) 12/23/19 15:00 12/30/19 14:59 12/28/19 15:44 Acetaminophen/ Hydrocodone Bitart ([place] 10/325) 2 tab Q4H PRN ORAL Severe Pain (Pain Scale 7-10) 12/23/19 15:00 12/30/19 14:59 12/28/19 21:52 Daptomycin 250 mg/ Sodium Chloride 55 ml @ 100 mls/hr Q24H IV 12/24/19 16:00 12/31/19 15:59 12/28/19 16:46 Dextrose (Dextrose 50%) 25 ml Q30M PRN IV Hypoglycemia 12/19/19 19:00 03/18/20 18:59 Dextrose (Dextrose 50%) 50 ml Q30M PRN IV Hypoglycemia 12/19/19 19:00 03/18/20 18:59 Dextrose/Sodium Chloride 1,000 ml @ 75 mls/hr [id number] IV 12/28/19 20:45 01/27/20 20:44 12/28/19 21:32 Gentamicin Protocol (Gentamicin pharmacy to dose) 1 ea DAILY PRN MISC Per rx protocol 12/24/19 13:00 01/23/20 12:59 Gentamicin Sulfate 300 mg/ Sodium Chloride 117.5 ml @ 117.5 mls/ hr Q24H IVPB 12/24/19 15:00 12/31/19 14:59 12/28/19 15:32 Heparin Sodium (Porcine) (Heparin 5000 units/ml) 5,000 units EVERY 12 HOURS SUBQ 12/19/19 21:00 02/02/20 20:59 12/28/19 21:33 Meropenem 2 gm/ Sodium Chloride 100 ml @ 200 mls/hr Q8HR IVPB 12/26/19 14:00 12/31/19 13:59 12/29/19 05:14 Ondansetron HCl (Zofran) 4 mg Q6H PRN IVP Nausea & Vomiting 12/19/19 19:00 01/18/20 18:59 Patient Own Medication (Patient's Own Med) 1 ea DAILY ORAL 12/21/19 18:00 01/20/20 17:59 12/28/19 09:28 Polyethylene Glycol (Miralax) 17 gm DAILYPRN PRN ORAL Constipation 12/19/19 19:00 01/18/20 18:59 12/29/19 05:14 Temazepam (Restoril) 15 mg HSPRN PRN ORAL Insomnia 12/23/19 15:00 12/30/19 14:59 12/27/19 21:59 Suellen Riojas M.D. Dec 29, 2019 07:27
--- NOTE | 2019-12-29 07:30 | NUR ---
NURSE NOTES: Received patient in bed,awake, verbally responsive. No s/s of pain or discomfort @ this time. Dressing on penile area intact, IV is intact,no s/s of infiltration. port a cath on left arm without needle. SPC is intact draining yellowish urine. Bed is in lowest position and locked. Call light within reach. Will continue plan of care.
[2019-12-29 07:43] LABS: ALANINE AMINOTRANSFERASE 24 U/L (12-78); ALBUMIN 2.2 G/DL (3.4-5.0); ALBUMIN/GLOBULIN RATIO 0.4 (1.0-2.7); ALKALINE PHOSPHATASE 85 U/L (46-116); ANION GAP 4 mmol/L (5-15); ASPARTATE AMINO TRANSFERASE 23 U/L (15-37); BILIRUBIN,TOTAL 0.4 MG/DL (0.2-1.0); BLOOD UREA NITROGEN 26 mg/dL (7-18); CARBON DIOXIDE 34 MMOL/L (21-32); CHLORIDE 107 MMOL/L (98-107); CREATININE 1.2 MG/DL (0.55-1.30); POTASSIUM 3.4 MMOL/L (3.5-5.1); SODIUM 144 MMOL/L (136-145)
[2019-12-29 07:47] LABS: CALCIUM 14.4 MG/DL (8.5-10.1)
[2019-12-29 07:51] LABS: % IRON SATURATION 29 % (15-50); IRON 45 ug/dL (50-175); TOTAL IRON BINDING CAPACITY 154 ug/dL (250-450)
[2019-12-29 08:00] VITALS: BP 115/72
[2019-12-29] MEDS: SYMTUZA ORAL SCH (08:19)
[2019-12-29] MEDS: Heparin 5000 units/ml inj SUBQ SCH ×2 (08:20→21:17)
--- NOTE | 2019-12-29 09:00 | NUR ---
NURSE NOTES: Body assessment and morning care done,changed dressing on penile area and no changes in skin condition. started albumin. Dr. Doran is aware of calcium level of 14.4 and ordered meds.
[2019-12-29 09:17] LABS: GAMMA GLUTAMYL TRANSPEPTIDASE 44 U/L (5-85)
--- NOTE | 2019-12-29 10:00 | NUR ---
RD ASSESSMENT & RECOMMENDATIONS SEE CARE ACTIVITY FOR COMPLETE ASSESSMENT DAILY ESTIMATED NEEDS: Needs based on Cancer, HIV/ 60kg 25-30 kcals/kg 5753-5997 total kcals 1-1.5 g protein/kg 60-90 g total protein 25-30 mL/kg 8981-8404 total fluid mLs NUTRITION DIAGNOSIS: Increased kcal/prot needs R/T catabolic dx, wound healing as evidenced by h/o urethral cancer, s/p chemotherapy, radiation, +HIV, admitted w/ penile wound necrosis. CURRENT DIET:Regular PO DIET RECOMMENDATIONS: REGULAR/ texture as tolerated + Ensure Enlive TID w/ meals ADDITIONAL RECOMMENDATIONS: * Calibrated bedscale wt (60kg-> 56kg) * Monitor for any side effects from chemo/radiation -> denies any side effects at this time. * Monitor PO intake: poor po intake -> Ensure Enlive added, now TID w/ poor po intake * Monitor lytes, replete as needed (low K) * 1:1 feeds all meals
[2019-12-29] MEDS: D5NS 1,000 ML IV SCH ×2 (10:05→16:22)
[2019-12-29] MEDS ORDERED: Pamidronate Disodium Inj 90 MG in Sodium Chloride 550 ML IVPB SCH (11:00)
[2019-12-29 12:00] VITALS: BP 105/59
--- NOTE | 2019-12-29 12:34 | Urology Progress Note ---
Assessment/Plan Assessment/Plan: 1. History of urethral cancer, status post chemo and immunotherapy and radiation with previous debridement. 2. Urinary retention and a chronic suprapubic tube. 3. Probable neurogenic bladder. 4. UTI and colonization. 5. Hematuria. 6. Proteinuria. 7. Mild acute kidney injury. monitor clinically maintain SPT, last exchanged 12/25 hand irrigated and do PRN abx as ordered local wound care debridement PRN Subjective Allergies: Coded Allergies: CODEINE (Verified Allergy, Unknown, 02/05/10) Subjective all noted, no new changes new SPT draining ok Objective Last 24 Hour Vital Signs Date Time Temp Pulse Resp B/P (MAP) Pulse Ox O2 Delivery O2 Flow Rate FiO2 12/29/19 09:00 Room Air 12/29/19 08:00 97.4 90 22 115/72 (86) 94 12/29/19 04:00 97.0 78 17 101/64 (76) 94 12/29/19 00:00 96.9 76 19 90/58 (69) 95 12/28/19 21:00 Room Air 12/28/19 20:00 96.8 104 21 107/69 (82) 94 12/28/19 16:00 98.5 69 17 125/73 (90) 97 Intake and Output 12/28/19 12/29/19 19:00 07:00 Intake Total 150 ml 1085 ml Output Total 1250 ml 1000 ml Balance -1100 ml 85 ml Intake Oral 150 ml IV Total 725 ml Other 360 ml Output Urine Total 1250 ml 1000 ml Microbiology Date/Time Source Procedure Growth Status 12/21/19 16:45 Penis Gram Stain - Final Complete 12/21/19 16:45 Wound Culture - Final Pseudomonas Aeruginosa Escherichia Coli - Esbl Enterococcus Gallinarum Complete 12/20/19 10:20 Rectal Mucosa - Final NO CARBAPENEM-RESISTANT ENTEROBACTERI... Complete 12/19/19 16:25 Urine,Clean Catch Urine Culture - Final Enterobacter Cloacae Complex Complete 12/19/19 16:25 Blood Blood Culture - Final NO GROWTH AFTER 5 DAYS Complete Current Medications Medications (Trade) Dose Ordered Sig/Virginie Route PRN Reason Start Time Stop Time Status Last Admin Dose Admin Acetaminophen (Tylenol) 650 mg Q4H PRN ORAL fever 12/19/19 19:00 01/18/20 18:59 Acetaminophen/ Hydrocodone Bitart ([place] 10/325) 1 tab Q4H PRN ORAL Moderate Pain (Pain Scale 4-6) 12/23/19 15:00 12/30/19 14:59 12/28/19 15:44 Acetaminophen/ Hydrocodone Bitart ([place] 10) 2 tab Q4H PRN ORAL Severe Pain (Pain Scale 7-10) 12/23/19 15:00 12/30/19 14:59 12/28/19 21:52 Calcitonin [place] (Miacalcin) 1 sprays DAILY NASAL 12/29/19 10:00 03/28/20 09:59 12/29/19 10:24 Daptomycin 250 mg/ Sodium Chloride 55 ml @ 100 mls/hr Q24H IV 12/24/19 16:00 12/31/19 15:59 12/28/19 16:46 Dextrose (Dextrose 50%) 25 ml Q30M PRN IV Hypoglycemia 12/19/19 19:00 03/18/20 18:59 Dextrose (Dextrose 50%) 50 ml Q30M PRN IV Hypoglycemia 12/19/19 19:00 03/18/20 18:59 Dextrose/Sodium Chloride 1,000 ml @ 75 mls/hr [id number] IV 12/28/19 20:45 01/27/20 20:44 12/28/19 21:32 Furosemide (Lasix) 20 mg ONCE IV 12/29/19 14:00 12/29/19 16:00 Gentamicin Protocol (Gentamicin pharmacy to dose) 1 ea DAILY PRN MISC Per rx protocol 12/24/19 13:00 01/23/20 12:59 Gentamicin Sulfate 300 mg/ Sodium Chloride 117.5 ml @ 117.5 mls/ hr Q24H IVPB 12/24/19 15:00 12/31/19 14:59 12/28/19 15:32 Heparin Sodium (Porcine) (Heparin 5000 units/ml) 5,000 units EVERY 12 HOURS SUBQ 12/19/19 21:00 02/02/20 20:59 12/29/19 08:20 Meropenem 2 gm/ Sodium Chloride 100 ml @ 200 mls/hr Q8HR IVPB 12/26/19 14:00 12/31/19 13:59 12/29/19 05:14 Ondansetron HCl (Zofran) 4 mg Q6H PRN IVP Nausea & Vomiting 12/19/19 19:00 01/18/20 18:59 Pamidronate Disodium 90 mg/ Sodium Chloride 550 ml @ 137.5 mls/ hr ONCE IVPB 12/29/19 11:00 01/28/20 10:59 12/29/19 10:24 Patient Own Medication (Patient's Own Med) 1 ea DAILY ORAL 12/21/19 18:00 01/20/20 17:59 12/29/19 08:19 Polyethylene Glycol (Miralax) 17 gm DAILYPRN PRN ORAL Constipation 12/19/19 19:00 01/18/20 18:59 12/29/19 05:14 Potassium Chloride (K-Dur) 40 meq TWICE A DAY ORAL 12/29/19 09:00 03/28/20 08:59 12/29/19 10:23 Temazepam (Restoril) 15 mg HSPRN PRN ORAL Insomnia 12/23/19 15:00 12/30/19 14:59 12/27/19 21:59 Laboratory Tests 12/28/19 21:30: Urine Color Pale yellow, Urine Appearance Cloudy, Urine pH 7, Urine Specific [place] 1.010, Urine Protein 2+H, Urine Glucose (UA) Negative, Urine Ketones Negative, Urine Blood 4+H, Urine Nitrite Negative, Urine Bilirubin Negative, Urine Urobilinogen 4H, Urine Leukocyte Esterase 1+H, Urine RBC 15-20H, Urine WBC 5-10H, Urine Squamous Epithelial Cells Few, Urine Amorphous Sediment ManyH, Urine Bacteria ModerateH 12/29/19 05:40: White Blood Count 14.8H, Red Blood Count 3.31L, Hemoglobin 12.6L, Hematocrit 33.2L, Mean Corpuscular Volume 100H, Mean Corpuscular Hemoglobin 38.0H, Mean Corpuscular Hemoglobin Concent 38.0H, Red Cell Distribution Width 20.0H, Platelet Count 367, Mean Platelet Volume 5.3L, Neutrophils (%) (Auto) 76.1H, Lymphocytes (%) (Auto) 12.5L, Monocytes (%) (Auto) 10.0, Eosinophils (%) (Auto) 1.1, Basophils (%) (Auto) 0.4, Sodium Level 144, Potassium Level 3.4L, Chloride Level 107, Carbon Dioxide Level 34H, Anion Gap 4L, Blood Urea Nitrogen 26H, Creatinine 1.2, Estimat Glomerular Filtration Rate > 60, Glucose Level 114H, Uric Acid 6.9, Calcium Level 14.4*H, Calcium (Send out) [Pending], Ionized Calcium (Measured) 1.86*H, Phosphorus Level 3.0, Magnesium Level 2.0, Iron Level 45L, Total Iron Binding Capacity 154L, Percent Iron Saturation 29, Unsaturated Iron Binding 109L, Ferritin 814H, Total Bilirubin 0.4, Gamma Glutamyl Transpeptidase 44, Aspartate Amino Transf (AST/SGOT) 23, Alanine Aminotransferase (ALT/SGPT) 24, Alkaline Phosphatase 85, Total Protein 7.5, Albumin 2.2L, Globulin 5.3, Albumin/Globulin Ratio 0.4L, Vitamin B12 Level 591, Folate 5.2L, Thyroid Stimulating Hormone (TSH) 1.091, Parathyroid Hormone (Intact) [Pending], Parathyroid Hormone Related Protein [Pending] Height (Feet): 5 Height (Inches): 6.00 Weight (Pounds): 132 Objective exam stable granulation tissue Chas Larsen MD Dec 29, 2019 12:34
--- NOTE | 2019-12-29 12:48 | Nephrology Progress Note ---
Assessment/Plan Problem List: (1) Hypercalcemia (2) Urethral cancer (3) Penile abscess (4) Encephalopathy Plan IV hydration 125 cc an hour Lasix 20 mg every 8 hours Nasal calcitonin 1 dose of pamidronate 90 mg IV piggyback Waiting for PTH and PTH related protein results Replace low folic acid Continue to monitor electrolytes and chemistries Per orders Subjective ROS Limited/Unobtainable: Yes Objective Objective Last 24 Hour Vital Signs Date Time Temp Pulse Resp B/P (MAP) Pulse Ox O2 Delivery O2 Flow Rate FiO2 12/29/19 09:00 Room Air 12/29/19 08:00 97.4 90 22 115/72 (86) 94 12/29/19 04:00 97.0 78 17 101/64 (76) 94 12/29/19 00:00 96.9 76 19 90/58 (69) 95 12/28/19 21:00 Room Air 12/28/19 20:00 96.8 104 21 107/69 (82) 94 12/28/19 16:00 98.5 69 17 125/73 (90) 97 Intake and Output 12/28/19 12/29/19 19:00 07:00 Intake Total 150 ml 1085 ml Output Total 1250 ml 1000 ml Balance -1100 ml 85 ml Intake Oral 150 ml IV Total 725 ml Other 360 ml Output Urine Total 1250 ml 1000 ml Laboratory Tests 12/28/19 21:30: Urine Color Pale yellow, Urine Appearance Cloudy, Urine pH 7, Urine Specific [place] 1.010, Urine Protein 2+H, Urine Glucose (UA) Negative, Urine Ketones Negative, Urine Blood 4+H, Urine Nitrite Negative, Urine Bilirubin Negative, Urine Urobilinogen 4H, Urine Leukocyte Esterase 1+H, Urine RBC 15-20H, Urine WBC 5-10H, Urine Squamous Epithelial Cells Few, Urine Amorphous Sediment ManyH, Urine Bacteria ModerateH 12/29/19 05:40: White Blood Count 14.8H, Red Blood Count 3.31L, Hemoglobin 12.6L, Hematocrit 33.2L, Mean Corpuscular Volume 100H, Mean Corpuscular Hemoglobin 38.0H, Mean Corpuscular Hemoglobin Concent 38.0H, Red Cell Distribution Width 20.0H, Platelet Count 367, Mean Platelet Volume 5.3L, Neutrophils (%) (Auto) 76.1H, Lymphocytes (%) (Auto) 12.5L, Monocytes (%) (Auto) 10.0, Eosinophils (%) (Auto) 1.1, Basophils (%) (Auto) 0.4, Sodium Level 144, Potassium Level 3.4L, Chloride Level 107, Carbon Dioxide Level 34H, Anion Gap 4L, Blood Urea Nitrogen 26H, Creatinine 1.2, Estimat Glomerular Filtration Rate > 60, Glucose Level 114H, Uric Acid 6.9, Calcium Level 14.4*H, Calcium (Send out) [Pending], Ionized Calcium (Measured) 1.86*H, Phosphorus Level 3.0, Magnesium Level 2.0, Iron Level 45L, Total Iron Binding Capacity 154L, Percent Iron Saturation 29, Unsaturated Iron Binding 109L, Ferritin 814H, Total Bilirubin 0.4, Gamma Glutamyl Transpeptidase 44, Aspartate Amino Transf (AST/SGOT) 23, Alanine Aminotra nsferase (ALT/SGPT) 24, Alkaline Phosphatase 85, Total Protein 7.5, Albumin 2.2L , Globulin 5.3, Albumin/Globulin Ratio 0.4L, Vitamin B12 Level 591, Folate 5.2L, Thyroid Stimulating Hormone (TSH) 1.091, Parathyroid Hormone (Intact) [Pending], Parathyroid Hormone Related Protein [Pending] Height (Feet): 5 Height (Inches): 6.00 Weight (Pounds): 132 General Appearance: no apparent distress, lethargic, confused Cardiovascular: tachycardia Respiratory/Chest: decreased breath sounds Abdomen: soft, distended Genitourinary/Rectal: other - Suprapubic catheter present Keaton Doran MD Dec 29, 2019 12:48
--- NOTE | 2019-12-29 13:00 | Pulmonology Progress Note ---
Subjective ROS Limited/Unobtainable: Yes Constitutional: Reports: no symptoms HEENT: Repors: no symptoms Allergies: Coded Allergies: CODEINE (Verified Allergy, Unknown, 02/05/10) Objective Last 24 Hour Vital Signs Date Time Temp Pulse Resp B/P (MAP) Pulse Ox O2 Delivery O2 Flow Rate FiO2 12/29/19 09:00 Room Air 12/29/19 08:00 97.4 90 22 115/72 (86) 94 12/29/19 04:00 97.0 78 17 101/64 (76) 94 12/29/19 00:00 96.9 76 19 90/58 (69) 95 12/28/19 21:00 Room Air 12/28/19 20:00 96.8 104 21 107/69 (82) 94 12/28/19 16:00 98.5 69 17 125/73 (90) 97 Intake and Output 12/28/19 12/29/19 19:00 07:00 Intake Total 150 ml 1085 ml Output Total 1250 ml 1000 ml Balance -1100 ml 85 ml Intake Oral 150 ml IV Total 725 ml Other 360 ml Output Urine Total 1250 ml 1000 ml General Appearance: cachetic HEENT: normocephalic, atraumatic Respiratory: chest wall non-tender, lungs clear Cardiovascular: normal peripheral pulses, normal rate, regular rhythm Abdomen: normal bowel sounds, soft, non tender Genitourinary: normal external genitalia Extremities: no cyanosis Skin: no rash Neurologic: emergency medcl emt II-XII grossly normal Laboratory Tests 12/28/19 21:30: Urine Color Pale yellow, Urine Appearance Cloudy, Urine pH 7, Urine Specific [place] 1.010, Urine Protein 2+H, Urine Glucose (UA) Negative, Urine Ketones N egative, Urine Blood 4+H, Urine Nitrite Negative, Urine Bilirubin Negative, Urine Urobilinogen 4H, Urine Leukocyte Esterase 1+H, Urine RBC 15-20H, Urine WBC 5-10H, Urine Squamous Epithelial Cells Few, Urine Amorphous Sediment ManyH, Urine Bacteria ModerateH 12/29/19 05:40: White Blood Count 14.8H, Red Blood Count 3.31L, Hemoglobin 12.6L, Hematocrit 33.2L, Mean Corpuscular Volume 100H, Mean Corpuscular Hemoglobin 38.0H, Mean Corpuscular Hemoglobin Concent 38.0H, Red Cell Distribution Width 20.0H, Platelet Count 367, Mean Platelet Volume 5.3L, Neutrophils (%) (Auto) 76.1H, Lymphocytes (%) (Auto) 12.5L, Monocytes (%) (Auto) 10.0, Eosinophils (%) (Auto) 1.1, Basophils (%) (Auto) 0.4, Sodium Level 144, Potassium Level 3.4L, Chloride Level 107, Carbon Dioxide Level 34H, Anion Gap 4L, Blood Urea Nitrogen 26H, Creatinine 1.2, Estimat Glomerular Filtration Rate > 60, Glucose Level 114H, Uric Acid 6.9, Calcium Level 14.4*H, Calcium (Send out) [Pending], Ionized Calcium (Measured) 1.86*H, Phosphorus Level 3.0, Magnesium Level 2.0, Iron Level 45L, Total Iron Binding Capacity 154L, Percent Iron Saturation 29, Unsaturated Iron Binding 109L, Ferritin 814H, Total Bilirubin 0.4, Gamma Glutamyl Transpe ptidase 44, Aspartate Amino Transf (AST/SGOT) 23, Alanine Aminotransferase (ALT/SGPT) 24, Alkaline Phosphatase 85, Total Protein 7.5, Albumin 2.2L, Globulin 5.3, Albumin/Globulin Ratio 0.4L, Vitamin B12 Level 591, Folate 5.2L, Thyroid Stimulating Hormone (TSH) 1.091, Parathyroid Hormone (Intact) [Pending], Parathyroid Hormone Related Protein [Pending] Current Medications Medications (Trade) Dose Ordered Sig/Virginie Route PRN Reason Start Time Stop Time Status Last Admin Dose Admin Acetaminophen (Tylenol) 650 mg Q4H PRN ORAL fever 12/19/19 19:00 01/18/20 18:59 Acetaminophen/ Hydrocodone Bitart ([place] 10/325) 1 tab Q4H PRN ORAL Moderate Pain (Pain Scale 4-6) 12/23/19 15:00 12/30/19 14:59 12/28/19 15:44 Acetaminophen/ Hydrocodone Bitart ([place] 10/325) 2 tab Q4H PRN ORAL Severe Pain (Pain Scale 7-10) 12/23/19 15:00 12/30/19 14:59 12/28/19 21:52 Calcitonin [place] (Miacalcin) 1 sprays DAILY NASAL 12/29/19 10:00 03/28/20 09:59 12/29/19 10:24 Daptomycin 250 mg/ Sodium Chloride 55 ml @ 100 mls/hr Q24H IV 12/24/19 16:00 12/31/19 15:59 12/28/19 16:46 Dextrose (Dextrose 50%) 25 ml Q30M PRN IV Hypoglycemia 12/19/19 19:00 03/18/20 18:59 Dextrose (Dextrose 50%) 50 ml Q30M PRN IV Hypoglycemia 12/19/19 19:00 03/18/20 18:59 Dextrose/Sodium Chloride 1,000 ml @ 125 mls/hr Q8H IV 12/28/19 20:45 01/27/20 20:44 12/28/19 21:32 Folic Acid (Folate) 2 mg DAILY ORAL 12/29/19 13:00 01/28/20 12:59 Furosemide (Lasix) 20 mg EVERY 8 HOURS IV 12/29/19 22:00 01/28/20 21:59 Furosemide (Lasix) 20 mg ONCE IV 12/29/19 14:00 12/29/19 16:00 Gentamicin Protocol (Gentamicin pharmacy to dose) 1 ea DAILY PRN MISC Per rx protocol 12/24/19 13:00 01/23/20 12:59 Gentamicin Sulfate 300 mg/ Sodium Chloride 117.5 ml @ 117.5 mls/ hr Q24H IVPB 12/24/19 15:00 12/31/19 14:59 12/28/19 15:32 Heparin Sodium (Porcine) (Heparin 5000 units/ml) 5,000 units EVERY 12 HOURS SUBQ 12/19/19 21:00 02/02/20 20:59 12/29/19 08:20 Meropenem 2 gm/ Sodium Chloride 100 ml @ 200 mls/hr Q8HR IVPB 12/26/19 14:00 12/31/19 13:59 12/29/19 05:14 Ondansetron HCl (Zofran) 4 mg Q6H PRN IVP Nausea & Vomiting 12/19/19 19:00 01/18/20 18:59 Pamidronate Disodium 90 mg/ Sodium Chloride 550 ml @ 137.5 mls/ hr ONCE IVPB 12/29/19 11:00 01/28/20 10:59 12/29/19 10:24 Patient Own Medication (Patient's Own Med) 1 ea DAILY ORAL 12/21/19 18:00 12/9/20 17:59 12/29/19 08:19 Polyethylene Glycol (Miralax) 17 gm DAILYPRN PRN ORAL Constipation 12/19/19 19:00 01/18/20 18:59 12/29/19 05:14 Potassium Chloride (K-Dur) 40 meq TWICE A DAY ORAL 12/29/19 09:00 03/28/20 08:59 12/29/19 10:23 Temazepam (Restoril) 15 mg HSPRN PRN ORAL Insomnia 12/23/19 15:00 12/30/19 14:59 12/27/19 21:59 Assessment/Plan Problems: (1) Hypercalcemia (2) Cellulitis and necrosis of penis (3) Penile abscess (4) Catheter-associated urinary tract infection (5) Sepsis (6) Urethral cancer (7) Abscess Assessment/Plan Ca is 14 today getting better WBC still high continue abx symptomatic treatment dvt prophylaxis. dc home when Ca and WBC are lower. Jasbir Larsen MD Dec 29, 2019 13:00
--- NOTE | 2019-12-29 15:17 | Surgery Progress Note ---
Surgery Progress Note Subjective Symptoms: improved, tolerating diet, passing flatus Objective Last 24 Hour Vital Signs Date Time Temp Pulse Resp B/P (MAP) Pulse Ox O2 Delivery O2 Flow Rate FiO2 12/29/19 12:00 97.4 87 21 105/59 (74) 97 12/29/19 09:00 Room Air 12/29/19 08:00 97.4 90 22 115/72 (86) 94 12/29/19 04:00 97.0 78 17 101/64 (76) 94 12/29/19 00:00 96.9 76 19 90/58 (69) 95 12/28/19 21:00 Room Air 12/28/19 20:00 96.8 104 21 107/69 (82) 94 12/28/19 16:00 98.5 69 17 125/73 (90) 97 I&O Intake and Output 12/28/19 12/29/19 19:00 07:00 Intake Total 150 ml 1085 ml Output Total 1250 ml 1000 ml Balance -1100 ml 85 ml Intake Oral 150 ml IV Total 725 ml Other 360 ml Output Urine Total 1250 ml 1000 ml Dressing: saturated Cardiovascular: RSR Respiratory: decreased breath sounds Abdomen: soft, non-tender, present bowel sounds Extremities: no tenderness, no cyanosis Laboratory Tests Test 12/28/19 21:30 12/29/19 05:40 12/29/19 14:30 Urine Color Pale yellow Urine Appearance Cloudy Urine pH 7 (4.5-8.0) Urine Specific [place] 1.010 (1.005-1.035) Urine Protein 2+ (NEGATIVE) H Urine Glucose (UA) Negative (NEGATIVE) Urine Ketones Negative (NEGATIVE) Urine Blood 4+ (NEGATIVE) H Urine Nitrite Negative (NEGATIVE) Urine Bilirubin Negative (NEGATIVE) Urine Urobilinogen 4 MG/DL (0.0-1.0) H Urine Leukocyte Esterase 1+ (NEGATIVE) H Urine RBC 15-20 /HPF (0 - 0) H Urine WBC 5-10 /HPF (0 - 0) H Urine Squamous Epithelial Cells Few /LPF (NONE/OCC) Urine Amorphous Sediment Many /LPF (NONE) H Urine Bacteria Moderate /HPF (NONE) H White Blood Count 14.8 K/UL (4.8-10.8) H Red Blood Count 3.31 M/UL (4.70-6.10) L Hemoglobin 12.6 G/DL (14.2-18.0) L Hematocrit 33.2 % (42.0-52.0) L Mean Corpuscular Volume 100 FL (80-99) H Mean Corpuscular Hemoglobin 38.0 PG (27.0-31.0) H Mean Corpuscular Hemoglobin Concent 38.0 G/DL (32.0-36.0) H Red Cell Distribution Width 20.0 % (11.6-14.8) H Platelet Count 367 K/UL (150-450) Mean Platelet Volume 5.3 FL (6.5-10.1) L Neutrophils (%) (Auto) 76.1 % (45.0-75.0) H Lymphocytes (%) (Auto) 12.5 % (20.0-45.0) L Monocytes (%) (Auto) 10.0 % (1.0-10.0) Eosinophils (%) (Auto) 1.1 % (0.0-3.0) Basophils (%) (Auto) 0.4 % (0.0-2.0) Sodium Level 144 MMOL/L (136-145) Potassium Level 3.4 MMOL/L (3.5-5.1) L Chloride Level 107 MMOL/L (98-107) Carbon Dioxide Level 34 MMOL/L (21-32) H Anion Gap 4 mmol/L (5-15) L Blood Urea Nitrogen 26 mg/dL (7-18) H Creatinine 1.2 MG/DL (0.55-1.30) Estimat Glomerular Filtration Rate > 60 mL/min (>60) Glucose Level 114 MG/DL (74-106) H Uric Acid 6.9 MG/DL (2.6-7.2) Calcium Level 14.4 MG/DL (8.5-10.1) *H Calcium (Send out) Pending Ionized Calcium (Measured) 1.86 mmol/L (1.10-1.35) *H Phosphorus Level 3.0 MG/DL (2.5-4.9) Magnesium Level 2.0 MG/DL (1.8-2.4) Iron Level 45 ug/dL (50-175) L Total Iron Binding Capacity 154 ug/dL (250-450) L Percent Iron Saturation 29 % (15-50) Unsaturated Iron Binding 109 ug/dL (112-346) L Ferritin 814 NG/ML (8-388) H Total Bilirubin 0.4 MG/DL (0.2-1.0) Gamma Glutamyl Transpeptidase 44 U/L (5-85) Aspartate Amino Transf (AST/SGOT) 23 U/L (15-37) Alanine Aminotransferase (ALT/SGPT) 24 U/L (12-78) Alkaline Phosphatase 85 U/L (46-116) Total Protein 7.5 G/DL (6.4-8.2) Albumin 2.2 G/DL (3.4-5.0) L Globulin 5.3 g/dL Albumin/Globulin Ratio 0.4 (1.0-2.7) L Vitamin B12 Level 591 PG/ML (193-986) Folate 5.2 NG/ML (8.6-58.9) L Thyroid Stimulating Hormone (TSH) 1.091 uiU/mL (0.358-3.740) Parathyroid Hormone (Intact) Pending Parathyroid Hormone Related Protein Pending Gentamicin Level Trough Pending Plan Problems: (1) Penile abscess Assessment & Plan: 61-year-old male with known urethral cancer status post chemoradiation presented with worsening wound necrosis and potential infection of the site. Patient seen prior penis necrosis falling off now remaining soft tissue in the malignancy region also with necrotic nonviable tissue identified. Drainage is serosanguineous at times sometimes serious and does not seem significant purulent. The cellulitis is minimal. Patient's labs noted. Given patient's history condition immunocompromise status recommend IV antibiotics. I discussed the patient and considerations for debriding some of the nonviable tissue though this will not in any way improve his cancer stated could help with local wound care. Patient expressed understanding we will continue to follow with local care and provide as necessary. No drainage of abscess identified at this time we will monitor thank you f/u with primary onc as per heme labs noted on rx wounds and slough/necrotic tissue debridement at bedside penis is fully necrotic and hanging off. will discuss consideration of op erative debridement including penis. not recommended at bedside given likely bleeding with debridement. does not want further debridement at this time states feels much better wound less foul odor after last clean ing d/c planning (2) Urethral cancer (3) Abscess (4) Sepsis (5) Catheter-associated urinary tract infection Romain Li Dec 29, 2019 15:17
[2019-12-29 16:00] VITALS: BP 119/73
[2019-12-29] MEDS: Gentamicin inj 300 MG in NS 110 ML IVPB SCH (16:22)
--- NOTE | 2019-12-29 16:57 | NUR ---
CASE MANAGEMENT: REVIEW SI: PENILE ABSCESS . URETHRAL CANCER . HYPERCALCEMIA T 97.4 HR 87 RR 21 BP 105/59 SAT 97% ROOM AIR WBC 14.8 H/H 21.6/33.2 IRON 45 CALCIUM 14.4 IS: LASIX IV Q8HR D5NS IVF @ 125ML/HR MEROPENEM IV Q8HR DAPTOMYCIN IV Q24HR GENTAMICIN IV Q24HR AREDIA IV X1 ALBUMIN IV X1 MED/SURG STATUS DCP: PATIENT IS FROM [facility]
--- NOTE | 2019-12-29 17:03 | Internal Med Progress Note ---
Subjective Date of Service: Dec 29, 2019 Physician Name TahminaJavier Attending Physician Ron Enriquez MD Current Medications Medications (Trade) Dose Ordered Sig/Virginie Route PRN Reason Start Time Stop Time Status Last Admin Dose Admin Acetaminophen (Tylenol) 650 mg Q4H PRN ORAL fever 12/19/19 19:00 01/18/20 18:59 Acetaminophen/ Hydrocodone Bitart ([place] 10/325) 1 tab Q4H PRN ORAL Moderate Pain (Pain Scale 4-6) 12/23/19 15:00 12/30/19 14:59 12/28/19 15:44 Acetaminophen/ Hydrocodone Bitart ([place] 10/325) 2 tab Q4H PRN ORAL Severe Pain (Pain Scale 7-10) 12/23/19 15:00 12/30/19 14:59 12/28/19 21:52 Calcitonin [place] (Miacalcin) 1 sprays DAILY NASAL 12/29/19 10:00 03/28/20 09:59 12/29/19 10:24 Daptomycin 250 mg/ Sodium Chloride 55 ml @ 100 mls/hr Q24H IV 12/24/19 16:00 12/31/19 15:59 12/28/19 16:46 Dextrose (Dextrose 50%) 25 ml Q30M PRN IV Hypoglycemia 12/19/19 19:00 03/18/20 18:59 Dextrose (Dextrose 50%) 50 ml Q30M PRN IV Hypoglycemia 12/19/19 19:00 03/18/20 18:59 Dextrose/Sodium Chloride 1,000 ml @ 125 mls/hr Q8H IV 12/28/19 20:45 01/27/20 20:44 12/29/19 16:22 Folic Acid (Folate) 2 mg DAILY ORAL 12/29/19 13:00 01/28/20 12:59 12/29/19 14:22 Furosemide (Lasix) 20 mg EVERY 8 HOURS IV 12/29/19 22:00 01/28/20 21:59 Gentamicin Protocol (Gentamicin pharmacy to dose) 1 ea DAILY PRN MISC Per rx protocol 12/24/19 13:00 01/23/20 12:59 Gentamicin Sulfate 300 mg/ Sodium Chloride 117.5 ml @ 117.5 mls/ hr Q24H IVPB 12/24/19 15:00 12/31/19 14:59 12/29/19 16:22 Heparin Sodium (Porcine) (Heparin 5000 units/ml) 5,000 units EVERY 12 HOURS SUBQ 12/19/19 21:00 02/02/20 20:59 12/29/19 08:20 Meropenem 2 gm/ Sodium Chloride 100 ml @ 200 mls/hr Q8HR IVPB 12/26/19 14:00 12/31/19 13:59 12/29/19 14:22 Ondansetron HCl (Zofran) 4 mg Q6H PRN IVP Nausea & Vomiting 12/19/19 19:00 01/18/20 18:59 Patient Own Medication (Patient's Own Med) 1 ea DAILY ORAL 12/21/19 18:00 01/20/20 17:59 12/29/19 08:19 Polyethylene Glycol (Miralax) 17 gm DAILYPRN PRN ORAL Constipation 12/19/19 19:00 01/18/20 18:59 12/29/19 05:14 Potassium Chloride (K-Dur) 40 meq TWICE A DAY ORAL 12/29/19 09:00 03/28/20 08:59 12/29/19 10:23 Temazepam (Restoril) 15 mg HSPRN PRN ORAL Insomnia 12/23/19 15:00 12/30/19 14:59 12/27/19 21:59 Allergies: Coded Allergies: CODEINE (Verified Allergy, Unknown, 02/05/10) ROS Limited/Unobtainable: No Constitutional: Reports: no symptoms HEENT: Reports: no symptoms Cardiovascular: Reports: no symptoms Respiratory: Reports: no symptoms Gastrointestinal/Abdominal: Reports: no symptoms Genitourinary: Reports: no symptoms Neurologic/Psychiatric: Reports: no symptoms Subjective 59 YO M with H/O urethral cancer admitted with Penile abscess and UTI. Cover for Int Med-Dr Enriquez. S/P bedside debridement 12/23/19 Objective Last Vital Signs Date Time Temp Pulse Resp B/P (MAP) Pulse Ox O2 Delivery O2 Flow Rate FiO2 12/29/19 16:00 97.9 86 21 119/73 (88) 97 12/29/19 09:00 Room Air 12/27/19 19:30 21 Laboratory Tests Test 12/28/19 21:30 12/29/19 05:40 12/29/19 14:30 Urine Color Pale yellow Urine Appearance Cloudy Urine pH 7 (4.5-8.0) Urine Specific [place] 1.010 (1.005-1.035) Urine Protein 2+ (NEGATIVE) H Urine Glucose (UA) Negative (NEGATIVE) Urine Ketones Negative (NEGATIVE) Urine Blood 4+ (NEGATIVE) H Urine Nitrite Negative (NEGATIVE) Urine Bilirubin Negative (NEGATIVE) Urine Urobilinogen 4 MG/DL (0.0-1.0) H Urine Leukocyte Esterase 1+ (NEGATIVE) H Urine RBC 15-20 /HPF (0 - 0) H Urine WBC 5-10 /HPF (0 - 0) H Urine Squamous Epithelial Cells Few /LPF (NONE/OCC) Urine Amorphous Sediment Many /LPF (NONE) H Urine Bacteria Moderate /HPF (NONE) H White Blood Count 14.8 K/UL (4.8-10.8) H Red Blood Count 3.31 M/UL (4.70-6.10) L Hemoglobin 12.6 G/DL (14.2-18.0) L Hematocrit 33.2 % (42.0-52.0) L Mean Corpuscular Volume 100 FL (80-99) H Mean Corpuscular Hemoglobin 38.0 PG (27.0-31.0) H Mean Corpuscular Hemoglobin Concent 38.0 G/DL (32.0-36.0) H Red Cell Distribution Width 20.0 % (11.6-14.8) H Platelet Count 367 K/UL (150-450) Mean Platelet Volume 5.3 FL (6.5-10.1) L Neutrophils (%) (Auto) 76.1 % (45.0-75.0) H Lymphocytes (%) (Auto) 12.5 % (20.0-45.0) L Monocytes (%) (Auto) 10.0 % (1.0-10.0) Eosinophils (%) (Auto) 1.1 % (0.0-3.0) Basophils (%) (Auto) 0.4 % (0.0-2.0) Sodium Level 144 MMOL/L (136-145) Potassium Level 3.4 MMOL/L (3.5-5.1) L Chloride Level 107 MMOL/L (98-107) Carbon Dioxide Level 34 MMOL/L (21-32) H Anion Gap 4 mmol/L (5-15) L Blood Urea Nitrogen 26 mg/dL (7-18) H Creatinine 1.2 MG/DL (0.55-1.30) Estimat Glomerular Filtration Rate > 60 mL/min (>60) Glucose Level 114 MG/DL (74-106) H Uric Acid 6.9 MG/DL (2.6-7.2) Calcium Level 14.4 MG/DL (8.5-10.1) *H Calcium (Send out) Pending Ionized Calcium (Measured) 1.86 mmol/L (1.10-1.35) *H Phosphorus Level 3.0 MG/DL (2.5-4.9) Magnesium Level 2.0 MG/DL (1.8-2.4) Iron Level 45 ug/dL (50-175) L Total Iron Binding Capacity 154 ug/dL (250-450) L Percent Iron Saturation 29 % (15-50) Unsaturated Iron Binding 109 ug/dL (112-346) L Ferritin 814 NG/ML (8-388) H Total Bilirubin 0.4 MG/DL (0.2-1.0) Gamma Glutamyl Transpeptidase 44 U/L (5-85) Aspartate Amino Transf (AST/SGOT) 23 U/L (15-37) Alanine Aminotransferase (ALT/SGPT) 24 U/L (12-78) Alkaline Phosphatase 85 U/L (46-116) Total Protein 7.5 G/DL (6.4-8.2) Albumin 2.2 G/DL (3.4-5.0) L Globulin 5.3 g/dL Albumin/Globulin Ratio 0.4 (1.0-2.7) L Vitamin B12 Level 591 PG/ML (193-986) Folate 5.2 NG/ML (8.6-58.9) L Thyroid Stimulating Hormone (TSH) 1.091 uiU/mL (0.358-3.740) Parathyroid Hormone (Intact) Pending Parathyroid Hormone Related Protein Pending Gentamicin Level Trough 1.0 ug/mL (0.3-2.0) Intake and Output 12/28/19 12/29/19 19:00 07:00 Intake Total 150 ml 1085 ml Output Total 1250 ml 1000 ml Balance -1100 ml 85 ml Intake Oral 150 ml IV Total 725 ml Other 360 ml Output Urine Total 1250 ml 1000 ml Objective PHYSICAL EXAMINATION: GENERAL: The patient is a well-developed and well-nourished male, in no apparent distress. HEENT: Eyes, pupils equal and responsive to light and accommodation. Extraocular movements are intact. NECK: Supple without lymphadenopathy. CHEST: Lungs are clear to auscultation bilaterally without wheezes or rales. CARDIOVASCULAR: Regular rate. S1, S2 are normal without murmurs, rubs, or gallops. ABDOMEN: Soft, nontender, and nondistended. Positive bowel sounds. No evidence of hepatosplenomegaly. Currently, no rebound or guarding noted. EXTREMITIES: Negative for clubbing, cyanosis, or edema. RECTAL AND GENITAL: There is a large fungating mass over the penile and scrotal region. There is foul odor. NEUROLOGICAL: Cranial nerves II through XII are grossly intact without focal deficits. Motor strength is 5/5 bilaterally intact. Deep tendon reflexes are 2+, plantar. Assessment/Plan Assessment/Plan ASSESSMENT: This is a 59-year-old male with: 1. Urinary tract infection=ESBL Enterobacter cloacae 2. Penile abscess. 3. HIV. 4. Urethral cancer. 5. Hypercalcemia TREATMENT: 1. Urinary tract infection/penile abscess. Antibiotics=meropenem, daptomycin and gentamicin Infectious Disease consulltation = Dr. Rider. 2. HIV. Continue Symtuza as above. 3. Penile/urethral cancer. Oncology consultation = Dr. Mandeep Horta. Urology consultation = Dr. Chas Larsen. 4. S/P bedside debridement; recommend debridement in OR per surgery 5. Nephrology=Dr Doran. PTH pending Javier Martel MD Dec 29, 2019 17:03
[2019-12-29] MEDS: DAPTOmycin 250 MG in NS 55 ML IV SCH (17:45)
--- NOTE | 2019-12-29 18:00 | NUR ---
NURSE NOTES: Previous IV was out, no s/s of infection on IV removal site. Inserted another IV on right wrist.
--- NOTE | 2019-12-29 18:30 | NUR ---
NURSE NOTES: During shift, dressing changes done twice and re-positioned patient q2hrs. No new skin issues. Patient took k-dur due to potassium level of 3.4.
--- NOTE | 2019-12-29 18:57 | NUR ---
NURSE HAND-OFF: Important Events on Shift: new IV, Aredia given, calcitonin spray given due to high calcium level Patient Status: stable Diet: regular Pending Orders: Pending Results/Labs: Pending MD notification: Latest Vital Signs: Temperature 97.9 , Pulse 86 , B/P 119 /73 , Respiratory Rate 21 , O2 SAT 97 , Room Air, O2 Flow Rate 5.0 . Vital Sign Comment: Latest Rahman Fall Score: 35 Fall Risk: Medium Risk Safety Measures: Call light Within Reach, Bed Alarm Zone 1, Side Rails Side Rails x2, Bed position Low and Locked. Fall Precautions: Yellow Socks Patient Fall Education Report given to Tejal and endorsed plan of care.
--- NOTE | 2019-12-29 19:10 | NUR ---
NURSE NOTES: RECEIVED PATIENT AND ROUNDED WITH MADAN VÁSQUEZ. PATIENT IS AWAKE, AAOX2, RESTING IN BED, NO ACUTE DISTRESS NOTED. VSS. AFEBRILE. DENIES SOB, DENIES PAIN AT THE MOMENT. SUPRAPUBIC CATHETER IN PLACE, DRAINING WELL, YELLOW URINE NOTED. CATHETER ANCHOR IN PLACE. PATIENT HAS A LEFT UPPER ARM PORT-A-CATH, NOT IN USE. PIV ON RIGHT WRIST INTACT AND PATENT, RUNNING D5NS AT 125ML/HR. WOUND DRESSINGS ON PENILE SACRAL AND HEELS INTACT AND DRY. PATIENT IS A FALL RISK, COMMUNICATED WITH STAFF AND CHARGE NURSE TO PERFORM FREQUENT ROUNDING. YELLOW ARMBAND, YELLOW GOWN, YELLOW SOCKS AND FALL RISK DOOR SIGN IN PLACE. BED IS LOCKED AND LOW, BED ALARMS ACTIVE, SIDE RAILS UPX2 AND CALL LIGHT IS WITHIN REACH. 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 PATIENT VERBALIZED UNDERSTANDING. WILL CONTINUE TO MONITOR CLOSELY.
--- NOTE | 2019-12-29 19:32 | NUR ---
NURSE NOTES: RECEIVED PATIENT FROM MADAN VÁSQUEZ. PATIENT IS AWAKE, AAOX1, ON ROOM AIR, NO ACUTE DISTRESS NOTED. PATIENT DENIES CHEST PAIN, SOB AND PAIN. SUPRAPUBIC CATH IN PLACE, DRAINING WELL, ANCHOR PRESENT, YELLOW COLOR URINE NOTED. PIV ON RIGHT WRIS INTACT AND PATENT. WOUND DRESSINGS ARE INTACT ON PENILE AREA. BED IS LOCKED AND LOW, BED ALARMS ACTIVE, SIDE RAILS UPX2 AND CALL LIGHT IS WITHIN REACH. WILL CONTINUE TO MONITOR.
[2019-12-29 20:00] VITALS: BP 116/75
[2019-12-30] VITALS: BP 104/62
[2019-12-30] MEDS: D5NS 1,000 ML IV SCH ×3 (03:09→19:31)
[2019-12-30 03:34] LABS: BASOPHILS % (AUTO) 0.3 % (0.0-2.0); EOSINOPHILS % (AUTO) 0.6 % (0.0-3.0); HEMATOCRIT 33.9 % (42.0-52.0); HEMOGLOBIN 11.2 G/DL (14.2-18.0); LYMPHOCYTES % (AUTO) 10.2 % (20.0-45.0); MEAN CORPUSCULAR VOLUME 96 FL (80-99); MONOCYTES % (AUTO) 7.3 % (1.0-10.0); NEUTROPHILS % (AUTO) 81.5 % (45.0-75.0); PLATELET COUNT 334 K/UL (150-450); RED BLOOD COUNT 3.52 M/UL (4.70-6.10); RED CELL DISTRIBUTION WIDTH 16.9 % (11.6-14.8); WHITE BLOOD COUNT 16.6 K/UL (4.8-10.8)
[2019-12-30 03:59] LABS: ALANINE AMINOTRANSFERASE 19 U/L (12-78); ALBUMIN 2.3 G/DL (3.4-5.0); ALBUMIN/GLOBULIN RATIO 0.5 (1.0-2.7); ALKALINE PHOSPHATASE 74 U/L (46-116); ANION GAP 3 mmol/L (5-15); ASPARTATE AMINO TRANSFERASE 20 U/L (15-37); BILIRUBIN,TOTAL 0.3 MG/DL (0.2-1.0); BLOOD UREA NITROGEN 22 mg/dL (7-18); CARBON DIOXIDE 31 MMOL/L (21-32); CHLORIDE 107 MMOL/L (98-107); CREATININE 1.2 MG/DL (0.55-1.30); PHOSPHORUS 1.7 MG/DL (2.5-4.9); POTASSIUM 3.1 MMOL/L (3.5-5.1); SODIUM 141 MMOL/L (136-145)
[2019-12-30 04:00] VITALS: BP 128/73
[2019-12-30 04:06] LABS: CALCIUM 13.2 MG/DL (8.5-10.1)
--- NOTE | 2019-12-30 06:54 | Hematology/Onc Progress Note ---
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 Leonard at [facility], per patient is his med onc --> dw 12/21 Dr. Leonard [facility] further f/u --> labs have been reviewed, hold off on tumor markers --> has been seen by Dr. Larsen here and recs noted debridement at some point --> 12/22 s/p debridement at bedside # Leukocytosis likely due to Penile abscess --> requires abx as per id vanc/flagyl/cefepime-->vanc/chelsea-->chelsea/dap/gent --> wbc 13-->14-->13--.12.4-->16-->16.6 # HYpercalcemia --> Ca+ 14.6 --> repeat as needed --> ivf, lasix, calcitonin per renal # Anemia likely chronic disease v other cause --> hgb 12 # Urinary retention with chronic suprapubic tube. --> per uro, surg care # Probable neurogenic bladder. # Urinary tract infection and colonization. # Hematuria. --> improved # Dvt ppx --> hep sq Appreciate consultation and conenr RN Subjective HEENT: Denies: no symptoms, eye pain, blurred vision, tearing, double vision, ear pain, ear discharge, nose pain, nose congestion, throat pain, throat swelling, mouth pain, mouth swelling, other Respiratory: Denies: no symptoms, cough, shortness of breath, SOB with excertion, SOB at rest, sputum, wheezing, other Gastrointestinal/Abdominal: Denies: no symptoms, abdomen distended, abdominal pain, black stools, tarry stools, blood in stool, constipated, diarrhea, difficulty swallowing, nausea, poor appetite, poor fluid intake, rectal bleeding, vomiting, other Genitourinary: Denies: no symptoms, burning, discharge, frequency, flank pain, hematuria, incontinence, pain, urgency, other Neurologic/Psychiatric: Denies: no symptoms, anxiety, depressed, emotional problems, headache, numbness, paresthesia, pre-existing deficit, seizure, tingling, tremors, weakness, other Endocrine: Denies: no symptoms, excessive sweating, flushing, intolerance to cold, intolerance to heat, increased hunger, increased thirst, increased urine, unexplained weight gain, unexplained weight loss, other Hematologic/Lymphatic: Denies: no symptoms, anemia, easy bleeding, easy bruisi ng, adenopathy, other Allergies: Coded Allergies: CODEINE (Verified Allergy, Unknown, 02/05/10) Subjective 12/21 is on abx vanc/flagyl, cefepime, on hep, suprapub catheter functional 12/22 no major events, debridement at some pt, dw Dr. Leonard yesterday [facility] 12/23 underwent bedside debridement yesterday, feeling better, dressing in place 12/24 meds reviewed, meds noted, no bleeding, dw rn 12/26 on chelsea, dapto, gent, no bleeding, meds noted, labs reviewed 12/27 wound care, dressing changes, labs reviewed, no bleeding 12/28 labs pending, meds reviewed, no bleeding or night sweats 12/29 labs reviewed, meds ntoed, with elev wbc, on abx Objective Objective Current Medications Medications (Trade) Dose Ordered Sig/Virginie Route PRN Reason Start Time Stop Time Status Last Admin Dose Admin Acetaminophen (Tylenol) 650 mg Q4H PRN ORAL fever 12/19/19 19:00 01/18/20 18:59 Acetaminophen/ Hydrocodone Bitart ([place] 10/325) 1 tab Q4H PRN ORAL Moderate Pain (Pain Scale 4-6) 12/23/19 15:00 12/30/19 14:59 12/28/19 15:44 Acetaminophen/ Hydrocodone Bitart ([place] 10/325) 2 tab Q4H PRN ORAL Severe Pain (Pain Scale 7-10) 12/23/19 15:00 12/30/19 14:59 12/28/19 21:52 Calcitonin [place] (Miacalcin) 1 sprays DAILY NASAL 12/29/19 10:00 03/28/20 09:59 12/29/19 10:24 Daptomycin 250 mg/ Sodium Chloride 55 ml @ 100 mls/hr Q24H IV 12/24/19 16:00 12/31/19 15:59 12/29/19 17:45 Dextrose (Dextrose 50%) 25 ml Q30M PRN IV Hypoglycemia 12/19/19 19:00 2/21 18:59 Dextrose (Dextrose 50%) 50 ml Q30M PRN IV Hypoglycemia 12/19/19 19:00 03/18/20 18:59 Dextrose/Sodium Chloride 1,000 ml @ 125 mls/hr Q8H IV 12/28/19 20:45 01/27/20 20:44 12/30/19 03:09 Folic Acid (Folate) 2 mg DAILY ORAL 12/29/19 13:00 01/28/20 12:59 12/29/19 14:22 Furosemide (Lasix) 20 mg EVERY 8 HOURS IV 12/29/19 22:00 01/28/20 21:59 12/30/19 05:49 Gentamicin Protocol (Gentamicin pharmacy to dose) 1 ea DAILY PRN MISC Per rx protocol 12/24/19 13:00 01/23/20 12:59 Gentamicin Sulfate 300 mg/ Sodium Chloride 117.5 ml @ 117.5 mls/ hr Q36H IVPB 12/31/19 04:00 01/07/20 03:59 Heparin Sodium (Porcine) (Heparin 5000 units/ml) 5,000 units EVERY 12 HOURS SUBQ 12/19/19 21:00 02/02/20 20:59 12/29/19 21:17 Meropenem 2 gm/ Sodium Chloride 100 ml @ 200 mls/hr Q8HR IVPB 12/26/19 14:00 12/31/19 13:59 12/30/19 05:46 Ondansetron HCl (Zofran) 4 mg Q6H PRN IVP Nausea & Vomiting 12/19/19 19:00 01/18/20 18:59 Patient Own Medication (Patient's Own Med) 1 ea DAILY ORAL 12/21/19 18:00 01/20/20 17:59 12/29/19 08:19 Polyethylene Glycol (Miralax) 17 gm DAILYPRN PRN ORAL Constipation 12/19/19 19:00 01/18/20 18:59 12/29/19 05:14 Potassium Chloride (K-Dur) 40 meq TWICE A DAY ORAL 12/29/19 09:00 03/28/20 08:59 12/29/19 17:45 Temazepam (Restoril) 15 mg HSPRN PRN ORAL Insomnia 12/23/19 15:00 12/30/19 14:59 12/27/19 21:59 Last 24 Hour Vital Signs Date Time Temp Pulse Resp B/P (MAP) Pulse Ox O2 Delivery O2 Flow Rate FiO2 12/30/19 04:00 99.0 90 21 128/73 (91) 94 12/30/19 00:00 98.6 92 20 104/62 (76) 94 12/29/19 21:00 Room Air 12/29/19 20:00 98.2 93 24 116/75 (89) 96 12/29/19 16:00 97.9 86 21 119/73 (88) 97 12/29/19 12:00 97.4 87 21 105/59 (74) 97 12/29/19 09:00 Room Air 12/29/19 08:00 97.4 90 22 115/72 (86) 94 12/29/19 04:00 97.0 78 17 101/64 (76) 94 12/29/19 00:00 96.9 76 19 90/58 (69) 95 12/28/19 21:00 Room Air 12/28/19 20:00 96.8 104 21 107/69 (82) 94 12/28/19 16:00 98.5 69 17 125/73 (90) 97 12/28/19 12:00 98.4 60 18 130/79 (96) 98 12/28/19 09:00 Room Air 12/28/19 08:00 98.9 59 17 135/74 (94) 99 Intake and Output 12/29/19 12/30/19 19:00 07:00 Intake Total 1672.5 ml 825 ml Output Total 2100 ml 1600 ml Balance -427.5 ml -775 ml Intake Oral 500 ml IV Total 1172.5 ml 825 ml Output Urine Total 2100 ml 1600 ml Labs Test 12/28/19 07:22 12/28/19 21:30 12/29/19 05:40 12/29/19 14:30 White Blood Count 16.2 K/UL (4.8-10.8) 14.8 K/UL (4.8-10.8) Red Blood Count 3.93 M/UL (4.70-6.10) 3.31 M/UL (4.70-6.10) Hemoglobin 12.3 G/DL (14.2-18.0) 12.6 G/DL (14.2-18.0) Hematocrit 37.2 % (42.0-52.0) 33.2 % (42.0-52.0) Mean Corpuscular Volume 95 FL (80-99) 100 FL (80-99) Mean Corpuscular Hemoglobin 31.2 PG (27.0-31.0) 38.0 PG (27.0-31.0) Mean Corpuscular Hemoglobin Concent 32.9 G/DL (32.0-36.0) 38.0 G/DL (32.0-36.0) Red Cell Distribution Width 16.5 % (11.6-14.8) 20.0 % (11.6-14.8) Platelet Count 392 K/UL (150-450) 367 K/UL (150-450) Mean Platelet Volume 5.6 FL (6.5-10.1) 5.3 FL (6.5-10.1) Neutrophils (%) (Auto) 79.8 % (45.0-75.0) 76.1 % (45.0-75.0) Lymphocytes (%) (Auto) 9.5 % (20.0-45.0) 12.5 % (20.0-45.0) Monocytes (%) (Auto) 8.9 % (1.0-10.0) 10.0 % (1.0-10.0) Eosinophils (%) (Auto) 1.1 % (0.0-3.0) 1.1 % (0.0-3.0) Basophils (%) (Auto) 0.7 % (0.0-2.0) 0.4 % (0.0-2.0) Sodium Level 139 MMOL/L (136-145) 144 MMOL/L (136-145) Potassium Level 3.6 MMOL/L (3.5-5.1) 3.4 MMOL/L (3.5-5.1) Chloride Level 102 MMOL/L (98-107) 107 MMOL/L (98-107) Carbon Dioxide Level 34 MMOL/L (21-32) 34 MMOL/L (21-32) Anion Gap 3 mmol/L (5-15) 4 mmol/L (5-15) Blood Urea Nitrogen 19 mg/dL (7-18) 26 mg/dL (7-18) Creatinine 1.1 MG/DL (0.55-1.30) 1.2 MG/DL (0.55-1.30) Estimat Glomerular Filtration Rate > 60 mL/min (>60) > 60 mL/min (>60) Glucose Level 99 MG/DL (74-106) 114 MG/DL (74-106) Calcium Level 14.6 MG/DL (8.5-10.1) 14.4 MG/DL (8.5-10.1) Urine Color Pale yellow Urine Appearance Cloudy Urine pH 7 (4.5-8.0) Urine Specific [place] 1.010 (1.005-1.035) Urine Protein 2+ (NEGATIVE) Urine Glucose (UA) Negative (NEGATIVE) Urine Ketones Negative (NEGATIVE) Urine Blood 4+ (NEGATIVE) Urine Nitrite Negative (NEGATIVE) Urine Bilirubin Negative (NEGATIVE) Urine Urobilinogen 4 MG/DL (0.0-1.0) Urine Leukocyte Esterase 1+ (NEGATIVE) Urine RBC 15-20 /HPF (0 - 0) Urine WBC 5-10 /HPF (0 - 0) Urine Squamous Epithelial Cells Few /LPF (NONE/OCC) Urine Amorphous Sediment Many /LPF (NONE) Urine Bacteria Moderate /HPF (NONE) Uric Acid 6.9 MG/DL (2.6-7.2) Ionized Calcium (Measured) 1.86 mmol/L (1.10-1.35) Phosphorus Level 3.0 MG/DL (2.5-4.9) Magnesium Level 2.0 MG/DL (1.8-2.4) Iron Level 45 ug/dL (50-175) Total Iron Binding Capacity 154 ug/dL (250-450) Percent Iron Saturation 29 % (15-50) Unsaturated Iron Binding 109 ug/dL (112-346) Ferritin 814 NG/ML (8-388) Total Bilirubin 0.4 MG/DL (0.2-1.0) Gamma Glutamyl Transpeptidase 44 U/L (5-85) Aspartate Amino Transf (AST/SGOT) 23 U/L (15-37) Alanine Aminotransferase (ALT/SGPT) 24 U/L (12-78) Alkaline Phosphatase 85 U/L (46-116) Total Protein 7.5 G/DL (6.4-8.2) Albumin 2.2 G/DL (3.4-5.0) Globulin 5.3 g/dL Albumin/Globulin Ratio 0.4 (1.0-2.7) Vitamin B12 Level 591 PG/ML (193-986) Folate 5.2 NG/ML (8.6-58.9) Thyroid Stimulating Hormone (TSH) 1.091 uiU/mL (0.358-3.740) Gentamicin Level Trough 1.0 ug/mL (0.3-2.0) Test 12/30/19 03:10 White Blood Count 16.6 K/UL (4.8-10.8) Red Blood Count 3.52 M/UL (4.70-6.10) Hemoglobin 11.2 G/DL (14.2-18.0) Hematocrit 33.9 % (42.0-52.0) Mean Corpuscular Volume 96 FL (80-99) Mean Corpuscular Hemoglobin 31.8 PG (27.0-31.0) Mean Corpuscular Hemoglobin Concent 33.0 G/DL (32.0-36.0) Red Cell Distribution Width 16.9 % (11.6-14.8) Platelet Count 334 K/UL (150-450) Mean Platelet Volume 5.8 FL (6.5-10.1) Neutrophils (%) (Auto) 81.5 % (45.0-75.0) Lymphocytes (%) (Auto) 10.2 % (20.0-45.0) Monocytes (%) (Auto) 7.3 % (1.0-10.0) Eosinophils (%) (Auto) 0.6 % (0.0-3.0) Basophils (%) (Auto) 0.3 % (0.0-2.0) Sodium Level 141 MMOL/L (136-145) Potassium Level 3.1 MMOL/L (3.5-5.1) Chloride Level 107 MMOL/L (98-107) Carbon Dioxide Level 31 MMOL/L (21-32) Anion Gap 3 mmol/L (5-15) Blood Urea Nitrogen 22 mg/dL (7-18) Creatinine 1.2 MG/DL (0.55-1.30) Estimat Glomerular Filtration Rate > 60 mL/min (>60) Glucose Level 119 MG/DL (74-106) Uric Acid 6.1 MG/DL (2.6-7.2) Calcium Level 13.2 MG/DL (8.5-10.1) Phosphorus Level 1.7 MG/DL (2.5-4.9) Magnesium Level 1.9 MG/DL (1.8-2.4) Total Bilirubin 0.3 MG/DL (0.2-1.0) Aspartate Amino Transf (AST/SGOT) 20 U/L (15-37) Alanine Aminotransferase (ALT/SGPT) 19 U/L (12-78) Alkaline Phosphatase 74 U/L (46-116) C-Reactive Protein, Quantitative 21.0 mg/dL (0.00-0.90) Pro-B-Type Natriuretic Peptide 518 pg/mL (0-125) Total Protein 7.0 G/DL (6.4-8.2) Albumin 2.3 G/DL (3.4-5.0) Globulin 4.7 g/dL Albumin/Globulin Ratio 0.5 (1.0-2.7) Random Gentamicin Level 3.6 ug/mL Height (Feet): 5 Height (Inches): 6.00 Weight (Pounds): 132 Objective Physical Exam Sp02 EP Interpretation: reviewed, normal General: no apparent distress, Chronically Ill Heent: normocephalic, atraumatic Respiratory: lungs clear, normal breath sounds Cardiovascular: normal peripheral pulses, regular rate Gastrointestinal: non tender, soft, non-distended, no guarding Genitourinary: other - Large area of necrosis noted in the genital region with purulent discharge, ++suprapub catheter Neurologic: alert, oriented x3 Skin: normal color, warm/dry Mandeep Horta MD Dec 30, 2019 06:53
--- NOTE | 2019-12-30 07:39 | NUR ---
HAND-OFF: Report given to MADAN Tierney.
--- NOTE | 2019-12-30 07:39 | NUR ---
NURSE NOTES: Received patient from Tejal, RN. Pt awake in bed, alert and oriented x 1-2, no SOB, bed in lowest position with breaks engaged and alarm on, denies any pain or discomfort at this time, IV line patent and intact, suprapubic catheter in place, on room air, will continue to monitor and proceed with plan of care, call light within reach.
--- NOTE | 2019-12-30 07:52 | Infectious Diseases Prog Note ---
Assessment/Plan 59yo M with: UTI -u/a wbc 40/6-, nit +, leuk +2; ucx >100k ESBL e. clocae complex -12/27 UCx NTD Penile necrotic wound infection- polymicrobial -wound cx ESBL E.coli, PsA (R levaquin, I Meropenem), E, gallinarum (R vanco, S Amp) Afebrile Leukocytosis, increased Urethral CA dx'ed 2019 sp chemotherapy x 12 sessions and radiation x8 sessions and surgical intervention (follows at [facility]) hx of penile abscess HIV on Symtuza (dx'ed 20 yrs ago) Former smoker (quit 8yrs ago) Recurrent UTI on bactrim ppx Urinary retention sp chronic suprapubic tube SNF resident ([facility]) Plan: Daptomycin #7 / 14 12/24 CK =11 Meropenem # / for ESBL Gentamycin # / as PsA intermediate to meropenem If no more debridement is planned, would continue IV abx for a total of 14 day course then stop and continue aggressive wound care. End date of all abx to be 01/05, tentatively -12/23 SP IV Vancomycin #6 -12/21 SP Cefepime #4, Flagyl #2 -12/18 SP Meropenem x1 -f/u cx -Monitor CBC/CMP, temperatures -wound cx -Uro and Gen sx f/u : penis is fully necrotic and hanging off. will discuss consideration of operative debridement including penis. not recommended at bedside given likely bleeding with debridement. -wound care per surgical team D/w RN Thank you for consulting [facility]. Will continue to follow along with you. Subjective Allergies: Coded Allergies: CODEINE (Verified Allergy, Unknown, 02/05/10) AF NAD WBC stable at 16 No new complaints Per RN, no more surgical debridement planned Objective Last 24 Hour Vital Signs Date Time Temp Pulse Resp B/P (MAP) Pulse Ox O2 Delivery O2 Flow Rate FiO2 12/30/19 04:00 99.0 90 21 128/73 (91) 94 12/30/19 00:00 98.6 92 20 104/62 (76) 94 12/29/19 21:00 Room Air 12/29/19 20:00 98.2 93 24 116/75 (89) 96 12/29/19 16:00 97.9 86 21 119/73 (88) 97 12/29/19 12:00 97.4 87 21 105/59 (74) 97 12/29/19 09:00 Room Air 12/29/19 08:00 97.4 90 22 115/72 (86) 94 Height (Feet): 5 Height (Inches): 6.00 Weight (Pounds): 132 Gen: NAD in bed HEENT: NCAT, EOMI, PERRL CV: RRR Pulm: CTAB on RA Abd: Soft, NTND Ext: No c/c/e : Necrotic penis with swollen base and open wound wo significant discharge or surrounding erythema Neuro: Awake Microbiology Date/Time Source Procedure Growth Status 12/28/19 21:30 Urine,Clean Catch Urine Culture - Preliminary NO GROWTH Resulted Laboratory Tests Test 12/29/19 14:30 12/30/19 03:10 Gentamicin Level Trough 1.0 ug/mL (0.3-2.0) White Blood Count 16.6 K/UL (4.8-10.8) H Red Blood Count 3.52 M/UL (4.70-6.10) L Hemoglobin 11.2 G/DL (14.2-18.0) L Hematocrit 33.9 % (42.0-52.0) L Mean Corpuscular Volume 96 FL (80-99) Mean Corpuscular Hemoglobin 31.8 PG (27.0-31.0) H Mean Corpuscular Hemoglobin Concent 33.0 G/DL (32.0-36.0) Red Cell Distribution Width 16.9 % (11.6-14.8) H Platelet Count 334 K/UL (150-450) Mean Platelet Volume 5.8 FL (6.5-10.1) L Neutrophils (%) (Auto) 81.5 % (45.0-75.0) H Lymphocytes (%) (Auto) 10.2 % (20.0-45.0) L Monocytes (%) (Auto) 7.3 % (1.0-10.0) Eosinophils (%) (Auto) 0.6 % (0.0-3.0) Basophils (%) (Auto) 0.3 % (0.0-2.0) Sodium Level 141 MMOL/L (136-145) Potassium Level 3.1 MMOL/L (3.5-5.1) L Chloride Level 107 MMOL/L (98-107) Carbon Dioxide Level 31 MMOL/L (21-32) Anion Gap 3 mmol/L (5-15) L Blood Urea Nitrogen 22 mg/dL (7-18) H Creatinine 1.2 MG/DL (0.55-1.30) Estimat Glomerular Filtration Rate > 60 mL/min (>60) Glucose Level 119 MG/DL (74-106) H Uric Acid 6.1 MG/DL (2.6-7.2) Calcium Level 13.2 MG/DL (8.5-10.1) *H Phosphorus Level 1.7 MG/DL (2.5-4.9) L Magnesium Level 1.9 MG/DL (1.8-2.4) Total Bilirubin 0.3 MG/DL (0.2-1.0) Aspartate Amino Transf (AST/SGOT) 20 U/L (15-37) Alanine Aminotransferase (ALT/SGPT) 19 U/L (12-78) Alkaline Phosphatase 74 U/L (46-116) C-Reactive Protein, Quantitative 21.0 mg/dL (0.00-0.90) H Pro-B-Type Natriuretic Peptide 518 pg/mL (0-125) H Total Protein 7.0 G/DL (6.4-8.2) Albumin 2.3 G/DL (3.4-5.0) L Globulin 4.7 g/dL Albumin/Globulin Ratio 0.5 (1.0-2.7) L Random Gentamicin Level 3.6 ug/mL Current Medications Medications (Trade) Dose Ordered Sig/Virginie Route PRN Reason Start Time Stop Time Status Last Admin Dose Admin Acetaminophen (Tylenol) 650 mg Q4H PRN ORAL fever 12/19/19 19:00 01/18/20 18:59 Acetaminophen/ Hydrocodone Bitart ([place] 10/325) 1 tab Q4H PRN ORAL Moderate Pain (Pain Scale 4-6) 12/23/19 15:00 12/30/19 14:59 12/28/19 15:44 Acetaminophen/ Hydrocodone Bitart ([place] 10/325) 2 tab Q4H PRN ORAL Severe Pain (Pain Scale 7-10) 12/23/19 15:00 12/30/19 14:59 12/28/19 21:52 Calcitonin [place] (Miacalcin) 1 sprays DAILY NASAL 12/29/19 10:00 03/28/20 09:59 12/29/19 10:24 Daptomycin 250 mg/ Sodium Chloride 55 ml @ 100 mls/hr Q24H IV 12/24/19 16:00 12/31/19 15:59 12/29/19 17:45 Dextrose (Dextrose 50%) 25 ml Q30M PRN IV Hypoglycemia 12/19/19 19:00 03/18/20 18:59 Dextrose (Dextrose 50%) 50 ml Q30M PRN IV Hypoglycemia 12/19/19 19:00 03/18/20 18:59 Dextrose/Sodium Chloride 1,000 ml @ 125 mls/hr Q8H IV 12/28/19 20:45 01/27/20 20:44 12/30/19 03:09 Folic Acid (Folate) 2 mg DAILY ORAL 12/29/19 13:00 01/28/20 12:59 12/29/19 14:22 Furosemide (Lasix) 20 mg EVERY 8 HOURS IV 12/29/19 22:00 01/28/20 21:59 12/30/19 05:49 Gentamicin Protocol (Gentamicin pharmacy to dose) 1 ea DAILY PRN MISC Per rx protocol 12/24/19 13:00 01/23/20 12:59 Gentamicin Sulfate 300 mg/ Sodium Chloride 117.5 ml @ 117.5 mls/ hr Q36H IVPB 12/31/19 04:00 01/07/20 03:59 Heparin Sodium (Porcine) (Heparin 5000 units/ml) 5,000 units EVERY 12 HOURS SUBQ 12/19/19 21:00 02/02/20 20:59 12/29/19 21:17 Meropenem 2 gm/ Sodium Chloride 100 ml @ 200 mls/hr Q8HR IVPB 12/26/19 14:00 12/31/19 13:59 12/30/19 05:46 Ondansetron HCl (Zofran) 4 mg Q6H PRN IVP Nausea & Vomiting 12/19/19 19:00 01/18/20 18:59 Patient Own Medication (Patient's Own Med) 1 ea DAILY ORAL 12/21/19 18:00 01/20/20 17:59 12/29/19 08:19 Polyethylene Glycol (Miralax) 17 gm DAILYPRN PRN ORAL Constipation 12/19/19 19:00 01/18/20 18:59 12/29/19 05:14 Potassium Chloride (K-Dur) 40 meq TWICE A DAY ORAL 12/29/19 09:00 03/28/20 08:59 12/29/19 17:45 Temazepam (Restoril) 15 mg HSPRN PRN ORAL Insomnia 12/23/19 15:00 12/30/19 14:59 12/27/19 21:59 Suellen Riojas M.D. Dec 30, 2019 07:52
[2019-12-30 08:00] VITALS: BP 110/74
--- NOTE | 2019-12-30 08:00 | Urology Progress Note ---
Assessment/Plan Assessment/Plan: 1. History of urethral cancer, status post chemo and immunotherapy and radiation with previous debridement. 2. Urinary retention and a chronic suprapubic tube. 3. Probable neurogenic bladder. 4. UTI and colonization. 5. Hematuria. 6. Proteinuria. 7. Mild acute kidney injury. monitor clinically maintain SPT, last exchanged 12/25 hand irrigated and do PRN abx as ordered local wound care debridement PRN f/u on last urine cx Subjective Allergies: Coded Allergies: CODEINE (Verified Allergy, Unknown, 02/05/10) Subjective all noted, more confused new SPT draining ok Objective Last 24 Hour Vital Signs Date Time Temp Pulse Resp B/P (MAP) Pulse Ox O2 Delivery O2 Flow Rate FiO2 12/30/19 04:00 99.0 90 21 128/73 (91) 94 12/30/19 00:00 98.6 92 20 104/62 (76) 94 12/29/19 21:00 Room Air 12/29/19 20:00 98.2 93 24 116/75 (89) 96 12/29/19 16:00 97.9 86 21 119/73 (88) 97 12/29/19 12:00 97.4 87 21 105/59 (74) 97 12/29/19 09:00 Room Air 12/29/19 08:00 97.4 90 22 115/72 (86) 94 Intake and Output 12/29/19 12/30/19 19:00 07:00 Intake Total 1672.5 ml 825 ml Output Total 2100 ml 1600 ml Balance -427.5 ml -775 ml Intake Oral 500 ml IV Total 1172.5 ml 825 ml Output Urine Total 2100 ml 1600 ml Microbiology Date/Time Source Procedure Growth Status 12/28/19 21:30 Urine,Clean Catch Urine Culture - Preliminary NO GROWTH Resulted 12/21/19 16:45 Penis Gram Stain - Final Complete 12/21/19 16:45 Wound Culture - Final Pseudomonas Aeruginosa Escherichia Coli - Esbl Enterococcus Gallinarum Complete 12/20/19 10:20 Rectal Mucosa - Final NO CARBAPENEM-RESISTANT ENTEROBACTERI... Complete 12/19/19 16:25 Blood Blood Culture - Final NO GROWTH AFTER 5 DAYS Complete Current Medications Medications (Trade) Dose Ordered Sig/Virginie Route PRN Reason Start Time Stop Time Status Last Admin Dose Admin Acetaminophen (Tylenol) 650 mg Q4H PRN ORAL fever 12/19/19 19:00 01/18/20 18:59 Acetaminophen/ Hydrocodone Bitart ([place] 10/325) 1 tab Q4H PRN ORAL Moderate Pain (Pain Scale 4-6) 12/23/19 15:00 12/30/19 14:59 12/28/19 15:44 Acetaminophen/ Hydrocodone Bitart ([place] 10/325) 2 tab Q4H PRN ORAL Severe Pain (Pain Scale 7-10) 12/23/19 15:00 12/30/19 14:59 12/28/19 21:52 Calcitonin [place] (Miacalcin) 1 sprays DAILY NASAL 12/29/19 10:00 03/28/20 09:59 12/29/19 10:24 Daptomycin 250 mg/ Sodium Chloride 55 ml @ 100 mls/hr Q24H IV 12/24/19 16:00 12/31/19 15:59 12/29/19 17:45 Dextrose (Dextrose 50%) 25 ml Q30M PRN IV Hypoglycemia 12/19/19 19:00 03/18/20 18:59 Dextrose (Dextrose 50%) 50 ml Q30M PRN IV Hypoglycemia 12/19/19 19:00 03/18/20 18:59 Dextrose/Sodium Chloride 1,000 ml @ 125 mls/hr Q8H IV 12/28/19 20:45 01/27/20 20:44 12/30/19 03:09 Folic Acid (Folate) 2 mg DAILY ORAL 12/29/19 13:00 01/28/20 12:59 12/29/19 14:22 Furosemide (Lasix) 20 mg EVERY 8 HOURS IV 12/29/19 22:00 01/28/20 21:59 12/30/19 05:49 Gentamicin Protocol (Gentamicin pharmacy to dose) 1 ea DAILY PRN MISC Per rx protocol 12/24/19 13:00 01/23/20 12:59 Gentamicin Sulfate 300 mg/ Sodium Chloride 117.5 ml @ 117.5 mls/ hr Q36H IVPB 12/31/19 04:00 01/07/20 03:59 Heparin Sodium (Porcine) (Heparin 5000 units/ml) 5,000 units EVERY 12 HOURS SUBQ 12/19/19 21:00 02/02/20 20:59 12/29/19 21:17 Meropenem 2 gm/ Sodium Chloride 100 ml @ 200 mls/hr Q8HR IVPB 12/26/19 14:00 12/31/19 13:59 12/30/19 05:46 Ondansetron HCl (Zofran) 4 mg Q6H PRN IVP Nausea & Vomiting 12/19/19 19:00 01/18/20 18:59 Patient Own Medication (Patient's Own Med) 1 ea DAILY ORAL 12/21/19 18:00 01/20/20 17:59 12/29/19 08:19 Polyethylene Glycol (Miralax) 17 gm DAILYPRN PRN ORAL Constipation 12/19/19 19:00 01/18/20 18:59 12/29/19 05:14 Potassium Chloride (K-Dur) 40 meq TWICE A DAY ORAL 12/29/19 09:00 03/28/20 08:59 12/29/19 17:45 Temazepam (Restoril) 15 mg HSPRN PRN ORAL Insomnia 12/23/19 15:00 12/30/19 14:59 12/27/19 21:59 Laboratory Tests 12/29/19 14:30: Gentamicin Level Trough 1.0 12/30/19 03:10: White Blood Count 16.6H, Red Blood Count 3.52L, Hemoglobin 11.2L, Hematocrit 33.9L, Mean Corpuscular Volume 96, Mean Corpuscular Hemoglobin 31.8H, Mean Co rpuscular Hemoglobin Concent 33.0, Red Cell Distribution Width 16.9H, Platelet Count 334, Mean Platelet Volume 5.8L, Neutrophils (%) (Auto) 81.5H, Lymphocytes (%) (Auto) 10.2L, Monocytes (%) (Auto) 7.3, Eosinophils (%) (Auto) 0.6, Basophils (%) (Auto) 0.3, Sodium Level 141, Potassium Level 3.1L, Chloride Level 107, Carbon Dioxide Level 31, Anion Gap 3L, Blood Urea Nitrogen 22H, Creatinine 1.2, Estimat Glomerular Filtration Rate > 60, Glucose Level 119H, Uric Acid 6.1, Calcium Level 13.2*H, Phosphorus Level 1.7L, Magnesium Level 1.9, Total Bilirubin 0.3, Aspartate Amino Transf (AST/SGOT) 20, Alanine Aminotransferase (ALT/SGPT) 19, Alkaline Phosphatase 74, C-Reactive Protein, Quantitative 21.0H, Pro-B-Type Natriuretic Peptide 518H, Total Protein 7.0, Albumin 2.3L, Globulin 4.7, Albumin/Globulin Ratio 0.5L, Random Gentamicin Level 3.6 Height (Feet): 5 Height (Inches): 6.00 Weight (Pounds): 132 Objective exam stable granulation tissue Chas Larsen MD Dec 30, 2019 08:00
[2019-12-30] MEDS: Heparin 5000 units/ml inj SUBQ SCH ×2 (08:35→20:46)
[2019-12-30] MEDS: SYMTUZA ORAL SCH (08:37)
[2019-12-30] MEDS: Potassium Phosphate 15mm/250ml 250 ML IVPB SCH ×2 (09:58→13:48)
[2019-12-30] MEDS: Phospha 250 Neutral tab ORAL SCH ×3 (09:58→17:21)
--- NOTE | 2019-12-30 11:03 | Internal Med Progress Note ---
Subjective Date of Service: Dec 30, 2019 Physician Name Javier Martel Attending Physician Ron Enriquez MD Current Medications Medications (Trade) Dose Ordered Sig/Virginie Route PRN Reason Start Time Stop Time Status Last Admin Dose Admin Acetaminophen (Tylenol) 650 mg Q4H PRN ORAL fever 12/19/19 19:00 01/18/20 18:59 Acetaminophen/ Hydrocodone Bitart ([place] 10/325) 1 tab Q4H PRN ORAL Moderate Pain (Pain Scale 4-6) 12/23/19 15:00 12/30/19 14:59 12/28/19 15:44 Acetaminophen/ Hydrocodone Bitart ([place] 10/325) 2 tab Q4H PRN ORAL Severe Pain (Pain Scale 7-10) 12/23/19 15:00 12/30/19 14:59 12/28/19 21:52 Calcitonin [place] (Miacalcin) 1 sprays DAILY NASAL 12/29/19 10:00 03/28/20 09:59 12/30/19 08:50 Daptomycin 250 mg/ Sodium Chloride 55 ml @ 100 mls/hr Q24H IV 12/24/19 16:00 12/31/19 15:59 12/29/19 17:45 Dextrose (Dextrose 50%) 25 ml Q30M PRN IV Hypoglycemia 12/19/19 19:00 03/18/20 18:59 Dextrose (Dextrose 50%) 50 ml Q30M PRN IV Hypoglycemia 12/19/19 19:00 03/18/20 18:59 Dextrose/Sodium Chloride 1,000 ml @ 125 mls/hr Q8H IV 12/28/19 20:45 01/27/20 20:44 12/30/19 10:13 Folic Acid (Folate) 2 mg DAILY ORAL 12/29/19 13:00 01/28/20 12:59 12/30/19 08:38 Furosemide (Lasix) 20 mg EVERY 8 HOURS IV 12/29/19 22:00 01/28/20 21:59 12/30/19 05:49 Gentamicin Protocol (Gentamicin pharmacy to dose) 1 ea DAILY PRN MISC Per rx protocol 12/24/19 13:00 01/23/20 12:59 Gentamicin Sulfate 300 mg/ Sodium Chloride 117.5 ml @ 117.5 mls/ hr Q36H IVPB 12/31/19 04:00 01/07/20 03:59 Heparin Sodium (Porcine) (Heparin 5000 units/ml) 5,000 units EVERY 12 HOURS SUBQ 12/19/19 21:00 02/02/20 20:59 12/30/19 08:35 Meropenem 2 gm/ Sodium Chloride 100 ml @ 200 mls/hr Q8HR IVPB 12/26/19 14:00 01/04/20 13:59 12/30/19 05:46 Ondansetron HCl (Zofran) 4 mg Q6H PRN IVP Nausea & Vomiting 12/19/19 19:00 01/18/20 18:59 Patient Own Medication (Patient's Own Med) 1 ea DAILY ORAL 12/21/19 18:00 01/20/20 17:59 12/30/19 08:37 Phosphorus (Phospha 250 Neutral) 250 mg THREE TIMES A DAY ORAL 12/30/19 09:30 01/29/20 09:29 12/30/19 09:58 Polyethylene Glycol (Miralax) 17 gm DAILYPRN PRN ORAL Constipation 12/19/19 19:00 01/18/20 18:59 12/29/19 05:14 Potassium Phosphate 250 ml @ 62.5 mls/hr Q4H IVPB 12/30/19 10:00 12/30/19 17:59 12/30/19 09:58 Potassium Chloride (K-Dur) 40 meq TID ORAL 12/30/19 13:00 03/28/20 12:59 Temazepam (Restoril) 15 mg HSPRN PRN ORAL Insomnia 12/23/19 15:00 12/30/19 14:59 12/27/19 21:59 Allergies: Coded Allergies: CODEINE (Verified Allergy, Unknown, 02/05/10) ROS Limited/Unobtainable: No Constitutional: Reports: no symptoms HEENT: Reports: no symptoms Cardiovascular: Reports: no symptoms Respiratory: Reports: no symptoms Gastrointestinal/Abdominal: Reports: no symptoms Genitourinary: Reports: no symptoms Neurologic/Psychiatric: Reports: no symptoms Subjective 59 YO M with H/O urethral cancer admitted with Penile abscess and UTI. Cover for Int Med-Dr Enriquez. S/P bedside debridement 12/23/19 Objective Last Vital Signs Date Time Temp Pulse Resp B/P (MAP) Pulse Ox O2 Delivery O2 Flow Rate FiO2 12/30/19 09:00 Room Air 12/30/19 08:00 98.2 84 20 110/74 (86) 94 12/27/19 19:30 21 Laboratory Tests Test 12/29/19 14:30 12/30/19 03:10 Gentamicin Level Trough 1.0 ug/mL (0.3-2.0) White Blood Count 16.6 K/UL (4.8-10.8) H Red Blood Count 3.52 M/UL (4.70-6.10) L Hemoglobin 11.2 G/DL (14.2-18.0) L Hematocrit 33.9 % (42.0-52.0) L Mean Corpuscular Volume 96 FL (80-99) Mean Corpuscular Hemoglobin 31.8 PG (27.0-31.0) H Mean Corpuscular Hemoglobin Concent 33.0 G/DL (32.0-36.0) Red Cell Distribution Width 16.9 % (11.6-14.8) H Platelet Count 334 K/UL (150-450) Mean Platelet Volume 5.8 FL (6.5-10.1) L Neutrophils (%) (Auto) 81.5 % (45.0-75.0) H Lymphocytes (%) (Auto) 10.2 % (20.0-45.0) L Monocytes (%) (Auto) 7.3 % (1.0-10.0) Eosinophils (%) (Auto) 0.6 % (0.0-3.0) Basophils (%) (Auto) 0.3 % (0.0-2.0) Sodium Level 141 MMOL/L (136-145) Potassium Level 3.1 MMOL/L (3.5-5.1) L Chloride Level 107 MMOL/L (98-107) Carbon Dioxide Level 31 MMOL/L (21-32) Anion Gap 3 mmol/L (5-15) L Blood Urea Nitrogen 22 mg/dL (7-18) H Creatinine 1.2 MG/DL (0.55-1.30) Estimat Glomerular Filtration Rate > 60 mL/min (>60) Glucose Level 119 MG/DL (74-106) H Uric Acid 6.1 MG/DL (2.6-7.2) Calcium Level 13.2 MG/DL (8.5-10.1) *H Phosphorus Level 1.7 MG/DL (2.5-4.9) L Magnesium Level 1.9 MG/DL (1.8-2.4) Total Bilirubin 0.3 MG/DL (0.2-1.0) Aspartate Amino Transf (AST/SGOT) 20 U/L (15-37) Alanine Aminotransferase (ALT/SGPT) 19 U/L (12-78) Alkaline Phosphatase 74 U/L (46-116) C-Reactive Protein, Quantitative 21.0 mg/dL (0.00-0.90) H Pro-B-Type Natriuretic Peptide 518 pg/mL (0-125) H Total Protein 7.0 G/DL (6.4-8.2) Albumin 2.3 G/DL (3.4-5.0) L Globulin 4.7 g/dL Albumin/Globulin Ratio 0.5 (1.0-2.7) L Random Gentamicin Level 3.6 ug/mL Microbiology Date/Time Source Procedure Growth Status 12/28/19 21:30 Urine,Clean Catch Urine Culture - Preliminary NO GROWTH Resulted Intake and Output 12/29/19 12/30/19 18:59 06:59 Intake Total 1672.5 ml 825 ml Output Total 2100 ml 1600 ml Balance -427.5 ml -775 ml Intake Oral 500 ml IV Total 1172.5 ml 825 ml Output Urine Total 2100 ml 1600 ml Objective PHYSICAL EXAMINATION: GENERAL: The patient is a well-developed and well-nourished male, in no apparent distress. HEENT: Eyes, pupils equal and responsive to light and accommodation. Extraocular movements are intact. NECK: Supple without lymphadenopathy. CHEST: Lungs are clear to auscultation bilaterally without wheezes or rales. CARDIOVASCULAR: Regular rate. S1, S2 are normal without murmurs, rubs, or gallops. ABDOMEN: Soft, nontender, and nondistended. Positive bowel sounds. No evidence of hepatosplenomegaly. Currently, no rebound or guarding noted. EXTREMITIES: Negative for clubbing, cyanosis, or edema. RECTAL AND GENITAL: There is a large fungating mass over the penile and scrotal region. There is foul odor. NEUROLOGICAL: Cranial nerves II through XII are grossly intact without focal deficits. Motor strength is 5/5 bilaterally intact. Deep tendon reflexes are 2+, plantar. Assessment/Plan Assessment/Plan ASSESSMENT: This is a 59-year-old male with: 1. Urinary tract infection=ESBL Enterobacter cloacae 2. Penile abscess. 3. HIV. 4. Urethral cancer. 5. Hypercalcemia-improving TREATMENT: 1. Urinary tract infection/penile abscess/necrotic tissue Antibiotics=meropenem, daptomycin and gentamicin Infectious Disease consulltation = Dr. Rider. 2. HIV. Continue Symtuza as above. 3. Penile/urethral cancer. Oncology consultation = Dr. Mandeep Horta. Urology consultation = Dr. Chas Larsen. 4. S/P bedside debridement; recommend debridement in OR per surgery 5. Nephrology=Dr Doran. PTH decreased. Continue pamidronate, calcitonin and joyceix Javier Martel MD Dec 30, 2019 11:03
--- NOTE | 2019-12-30 11:49 | NUR ---
NURSE NOTES: Dr. Martel aware regarding most recent Calcium 13.2 result.
[2019-12-30 12:00] VITALS: BP 111/69
--- NOTE | 2019-12-30 12:19 | NUR ---
NURSE NOTES: Called Dr. Suellen Riojas to clarify which IV ATB will the pt be on when he gets discharged, stated all current IV ATB will be continued upon DC per her most recent note and that no PICC line placement will be ordered at the moment, stated peripheral IV will be used. Will continue to monitor.
--- NOTE | 2019-12-30 13:13 | Nephrology Progress Note ---
Assessment/Plan Problem List: (1) Hypercalcemia (2) Urethral cancer (3) Penile abscess (4) Encephalopathy Plan December 29: Serum calcium remains elevated however is going down on current treatment plan. Abnormal electrolytes addressed. Continue to monitor serum calcium. December 28: IV hydration 125 cc an hour Lasix 20 mg every 8 hours Nasal calcitonin 1 dose of pamidronate 90 mg IV piggyback Waiting for PTH and PTH related protein results Replace low folic acid Continue to monitor electrolytes and chemistries Per orders Subjective ROS Limited/Unobtainable: No Constitutional: Reports: malaise Objective Objective Last 24 Hour Vital Signs Date Time Temp Pulse Resp B/P (MAP) Pulse Ox O2 Delivery O2 Flow Rate FiO2 12/30/19 12:00 97.7 86 21 111/69 (83) 97 12/30/19 09:00 Room Air 12/30/19 08:00 98.2 84 20 110/74 (86) 94 12/30/19 04:00 99.0 90 21 128/73 (91) 94 12/30/19 00:00 98.6 92 20 104/62 (76) 94 12/29/19 21:00 Room Air 12/29/19 20:00 98.2 93 24 116/75 (89) 96 12/29/19 16:00 97.9 86 21 119/73 (88) 97 Intake and Output 12/29/19 12/30/19 19:00 07:00 Intake Total 1672.5 ml 825 ml Output Total 2100 ml 1600 ml Balance -427.5 ml -775 ml Intake Oral 500 ml IV Total 1172.5 ml 825 ml Output Urine Total 2100 ml 1600 ml Current Medications Medications (Trade) Dose Ordered Sig/Virginie Route PRN Reason Start Time Stop Time Status Last Admin Dose Admin Acetaminophen (Tylenol) 650 mg Q4H PRN ORAL fever 12/19/19 19:00 01/18/20 18:59 Acetaminophen/ Hydrocodone Bitart ([place] 10/325) 1 tab Q4H PRN ORAL Moderate Pain (Pain Scale 4-6) 12/23/19 15:00 12/30/19 14:59 12/28/19 15:44 Acetaminophen/ Hydrocodone Bitart ([place] 10/325) 2 tab Q4H PRN ORAL Severe Pain (Pain Scale 7-10) 12/23/19 15:00 12/30/19 14:59 12/28/19 21:52 Calcitonin [place] (Miacalcin) 1 sprays DAILY NASAL 12/29/19 10:00 03/28/20 09:59 12/30/19 08:50 Daptomycin 250 mg/ Sodium Chloride 55 ml @ 100 mls/hr Q24H IV 12/24/19 16:00 12/31/19 15:59 12/29/19 17:45 Dextrose (Dextrose 50%) 25 ml Q30M PRN IV Hypoglycemia 12/19/19 19:00 03/18/20 18:59 Dextrose (Dextrose 50%) 50 ml Q30M PRN IV Hypoglycemia 12/19/19 19:00 03/18/20 18:59 Dextrose/Sodium Chloride 1,000 ml @ 125 mls/hr Q8H IV 12/28/19 20:45 01/27/20 20:44 12/30/19 10:13 Folic Acid (Folate) 2 mg DAILY ORAL 12/29/19 13:00 01/28/20 12:59 12/30/19 08:38 Furosemide (Lasix) 20 mg EVERY 8 HOURS IV 12/29/19 22:00 01/28/20 21:59 12/30/19 05:49 Gentamicin Protocol (Gentamicin pharmacy to dose) 1 ea DAILY PRN MISC Per rx protocol 12/24/19 13:00 01/23/20 12:59 Gentamicin Sulfate 300 mg/ Sodium Chloride 117.5 ml @ 117.5 mls/ hr Q36H IVPB 12/31/19 04:00 01/07/20 03:59 Heparin Sodium (Porcine) (Heparin 5000 units/ml) 5,000 units EVERY 12 HOURS SUBQ 12/19/19 21:00 02/02/20 20:59 12/30/19 08:35 Meropenem 2 gm/ Sodium Chloride 100 ml @ 200 mls/hr Q8HR IVPB 12/26/19 14:00 01/04/20 13:59 12/30/19 05:46 Ondansetron HCl (Zofran) 4 mg Q6H PRN IVP Nausea & Vomiting 12/19/19 19:00 01/18/20 18:59 Patient Own Medication (Patient's Own Med) 1 ea DAILY ORAL 12/21/19 18:00 01/20/20 17:59 12/30/19 08:37 Phosphorus (Phospha 250 Neutral) 250 mg THREE TIMES A DAY ORAL 12/30/19 09:30 01/29/20 09:29 12/30/19 12:26 Polyethylene Glycol (Miralax) 17 gm DAILYPRN PRN ORAL Constipation 12/19/19 19:00 01/18/20 18:59 12/29/19 05:14 Potassium Phosphate 250 ml @ 62.5 mls/hr Q4H IVPB 12/30/19 10:00 12/30/19 17:59 12/30/19 09:58 Potassium Chloride (K-Dur) 40 meq TID ORAL 12/30/19 13:00 03/28/20 12:59 12/30/19 12:27 Temazepam (Restoril) 15 mg HSPRN PRN ORAL Insomnia 12/23/19 15:00 12/30/19 14:59 12/27/19 21:59 Laboratory Tests 12/29/19 14:30: Gentamicin Level Trough 1.0 12/30/19 03:10: White Blood Count 16.6H, Red Blood Count 3.52L, Hemoglobin 11.2L, Hematocrit 33.9L, Mean Corpuscular Volume 96, Mean Corpuscular Hemoglobin 31.8H, Mean Corpuscular Hemoglobin Concent 33.0, Red Cell Distribution Width 16.9H, Platelet Count 334, Mean Platelet Volume 5.8L, Neutrophils (%) (Auto) 81.5H, Lymphocytes (%) (Auto) 10.2L, Monocytes (%) (Auto) 7.3, Eosinophils (%) (Auto) 0.6, Basophils (%) (Auto) 0.3, Sodium Level 141, Potassium Level 3.1L, Chloride Level 107, Carbon Dioxide Level 31, Anion Gap 3L, Blood Urea Nitrogen 22H, Creatinine 1.2, Estimat Glomerular Filtration Rate > 60, Glucose Level 119H, Uric Acid 6.1, Calcium Level 13.2*H, Phosphorus Level 1.7L, Magnesium Level 1.9, Total Bilirubin 0.3, Aspartate Amino Transf (AST/SGOT) 20, Alanine Aminotransferase (ALT/SGPT) 19, Alkaline Phosphatase 74, C-Reactive Protein, Quantitative 21.0H, Pro-B-Type Natriuretic Peptide 518H, Total Protein 7.0, Albumin 2.3L, Globulin 4.7, Albumin/Globulin Ratio 0.5L, Random Gentamicin Level 3.6 Height (Feet): 5 Height (Inches): 6.00 Weight (Pounds): 132 General Appearance: no apparent distress, confused Cardiovascular: normal rate Respiratory/Chest: decreased breath sounds Abdomen: distended Keaton Doran MD Dec 30, 2019 13:13
--- NOTE | 2019-12-30 13:42 | Surgery Progress Note ---
Surgery Progress Note Subjective Symptoms: improved, tolerating diet, passing flatus Objective Last 24 Hour Vital Signs Date Time Temp Pulse Resp B/P (MAP) Pulse Ox O2 Delivery O2 Flow Rate FiO2 12/30/19 12:00 97.7 86 21 111/69 (83) 97 12/30/19 09:00 Room Air 12/30/19 08:00 98.2 84 20 110/74 (86) 94 12/30/19 04:00 99.0 90 21 128/73 (91) 94 12/30/19 00:00 98.6 92 20 104/62 (76) 94 12/29/19 21:00 Room Air 12/29/19 20:00 98.2 93 24 116/75 (89) 96 12/29/19 16:00 97.9 86 21 119/73 (88) 97 I&O Intake and Output 12/29/19 12/30/19 19:00 07:00 Intake Total 1672.5 ml 825 ml Output Total 2100 ml 1600 ml Balance -427.5 ml -775 ml Intake Oral 500 ml IV Total 1172.5 ml 825 ml Output Urine Total 2100 ml 1600 ml Dressing: saturated Cardiovascular: RSR Respiratory: clear Abdomen: soft, non-tender, present bowel sounds Extremities: no edema, no tenderness, no cyanosis Laboratory Tests Test 12/29/19 14:30 12/30/19 03:10 Gentamicin Level Trough 1.0 ug/mL (0.3-2.0) White Blood Count 16.6 K/UL (4.8-10.8) H Red Blood Count 3.52 M/UL (4.70-6.10) L Hemoglobin 11.2 G/DL (14.2-18.0) L Hematocrit 33.9 % (42.0-52.0) L Mean Corpuscular Volume 96 FL (80-99) Mean Corpuscular Hemoglobin 31.8 PG (27.0-31.0) H Mean Corpuscular Hemoglobin Concent 33.0 G/DL (32.0-36.0) Red Cell Distribution Width 16.9 % (11.6-14.8) H Platelet Count 334 K/UL (150-450) Mean Platelet Volume 5.8 FL (6.5-10.1) L Neutrophils (%) (Auto) 81.5 % (45.0-75.0) H Lymphocytes (%) (Auto) 10.2 % (20.0-45.0) L Monocytes (%) (Auto) 7.3 % (1.0-10.0) Eosinophils (%) (Auto) 0.6 % (0.0-3.0) Basophils (%) (Auto) 0.3 % (0.0-2.0) Sodium Level 141 MMOL/L (136-145) Potassium Level 3.1 MMOL/L (3.5-5.1) L Chloride Level 107 MMOL/L (98-107) Carbon Dioxide Level 31 MMOL/L (21-32) Anion Gap 3 mmol/L (5-15) L Blood Urea Nitrogen 22 mg/dL (7-18) H Creatinine 1.2 MG/DL (0.55-1.30) Estimat Glomerular Filtration Rate > 60 mL/min (>60) Glucose Level 119 MG/DL (74-106) H Uric Acid 6.1 MG/DL (2.6-7.2) Calcium Level 13.2 MG/DL (8.5-10.1) *H Phosphorus Level 1.7 MG/DL (2.5-4.9) L Magnesium Level 1.9 MG/DL (1.8-2.4) Total Bilirubin 0.3 MG/DL (0.2-1.0) Aspartate Amino Transf (AST/SGOT) 20 U/L (15-37) Alanine Aminotransferase (ALT/SGPT) 19 U/L (12-78) Alkaline Phosphatase 74 U/L (46-116) C-Reactive Protein, Quantitative 21.0 mg/dL (0.00-0.90) H Pro-B-Type Natriuretic Peptide 518 pg/mL (0-125) H Total Protein 7.0 G/DL (6.4-8.2) Albumin 2.3 G/DL (3.4-5.0) L Globulin 4.7 g/dL Albumin/Globulin Ratio 0.5 (1.0-2.7) L Random Gentamicin Level 3.6 ug/mL Plan Problems: (1) Penile abscess Assessment & Plan: 61-year-old male with known urethral cancer status post chemoradiation presented with worsening wound necrosis and potential infection of the site. Patient seen prior penis necrosis falling off now remaining soft tissue in the malignancy region also with necrotic nonviable tissue identified. Drainage is serosanguineous at times sometimes serious and does not seem significant purulent. The cellulitis is minimal. Patient's labs noted. Given patient's history condition immunocompromise status recommend IV antibiotics. I discussed the patient and considerations for debriding some of the nonviable tissue though this will not in any way improve his cancer stated could help with local wound care. Patient expressed understanding we will continue to follow with local care and provide as necessary. No drainage of abscess identified at this time we will monitor thank you f/u with primary onc as per heme labs noted on rx wounds and slough/necrotic tissue debridement at bedside penis is fully necrotic and hanging off. will discuss consideration of operative debridement including penis. not recommended at bedside given likely bleeding with debridement. does not want further debridement at this time states feels much better wound less foul odor after last clean ing d/c planning (2) Urethral cancer (3) Abscess (4) Sepsis (5) Catheter-associated urinary tract infection Romain Li Dec 30, 2019 13:42
[2019-12-30 16:00] VITALS: BP 105/62
--- NOTE | 2019-12-30 16:13 | NUR ---
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 99.0 HR 86 RR 21 B/P 128/73 RA 98% WBC 16.6 CALCIUM 13.2 K 3.1 IS: MEROPENEM IV DAPTOMYCIN IV IVF D5NS@ 125ML/HR K-PHOS IV GENTAMICIN IV MED/SURG STATUS
[2019-12-30] MEDS: DAPTOmycin 250 MG in NS 55 ML IV SCH (16:32)
--- NOTE | 2019-12-30 19:30 | NUR ---
NURSE HAND-OFF: Important Events on Shift:[IV ATBS and fluids, wound care, safety and comfort] Patient Status: [stable] Diet: [regular] Pending Orders: [] Pending Results/Labs:[] Pending MD notification:[] Latest Vital Signs: Temperature 96.8 , Pulse 80 , B/P 105 /62 , Respiratory Rate 18 , O2 SAT 94 , Room Air, O2 Flow Rate 5.0 . Vital Sign Comment: [] Latest Rahman Fall Score: 35 Fall Risk: Medium Risk Safety Measures: Call light Within Reach, Bed Alarm Zone 1, Side Rails Side Rails x2, Bed position Low and Locked. Fall Precautions: Yellow Socks Patient Fall Education Report given to [MADAN Condon].
--- NOTE | 2019-12-30 19:30 | NUR ---
NURSE NOTES: Patient awake in bed, on room air, no SOB noted. Instructed to use call light for assistance. Bed in lowest, lock engaged and alarm on. Will continue plan of care.
[2019-12-30 20:00] VITALS: BP 136/77
[2019-12-31] VITALS: BP 116/75
[2019-12-31] MEDS: D5NS 1,000 ML IV SCH ×3 (03:15→19:25)
[2019-12-31 04:00] VITALS: BP 117/68
[2019-12-31] MEDS ORDERED: Gentamicin inj 300 MG in NS 110 ML IVPB SCH (04:00)
--- NOTE | 2019-12-31 06:41 | NUR ---
NURSE NOTES: Explained to the patient that his IV site is getting red and needs a new one. Explained the risks and benefits of new IV access. Patient refused and got agitated.
--- NOTE | 2019-12-31 06:45 | NUR ---
NURSE HAND-OFF: Important Events on Shift: Dressing changed, Patient refused new IV insertion Patient Status: Diet: Regular Pending Orders: AM labs Pending Results/Labs: Pending MD notification: Latest Vital Signs: Temperature 98.3 , Pulse 77 , B/P 117 /68 , Respiratory Rate 18 , O2 SAT 95 , Room Air, O2 Flow Rate 5.0 . Vital Sign Comment: Latest Rahman Fall Score: 35 Fall Risk: Medium Risk Safety Measures: Call light Within Reach, Bed Alarm Zone 1, Side Rails Side Rails x2, Bed position Low and Locked. Fall Precautions: Yellow Socks Patient Fall Education
--- NOTE | 2019-12-31 06:55 | Hematology/Onc Progress Note ---
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 Leonard at [facility], per patient is his med onc --> dw 12/21 Dr. Leonard [facility] further f/u --> labs have been reviewed, hold off on tumor markers --> has been seen by Dr. Larsen here and recs noted debridement at some point --> 12/22 s/p debridement at bedside # Leukocytosis likely due to Penile abscess --> requires abx as per id vanc/flagyl/cefepime-->vanc/chelsea-->chelsea/dap/gent --> wbc 13-->14-->13--.12.4-->16-->16.6 # HYpercalcemia --> Ca+ 14.6-->13.2 --> repeat as needed --> ivf, lasix, calcitonin per renal, pamidronate --> per renal # Anemia likely chronic disease v other cause --> hgb 12-->11 # Urinary retention with chronic suprapubic tube. --> per uro, surg care # Probable neurogenic bladder. # Urinary tract infection and colonization. # Hematuria. --> improved # Dvt ppx --> hep sq Appreciate consultation and conner RN Subjective HEENT: Denies: no symptoms, eye pain, blurred vision, tearing, double vision, ear pain, ear discharge, nose pain, nose congestion, throat pain, throat swelling, mouth pain, mouth swelling, other Cardiovascular: Denies: no symptoms, chest pain, edema, irregular heart rate, lightheadedness, palpitations, syncope, other Respiratory: Denies: no symptoms, cough, shortness of breath, SOB with excertion, SOB at rest, sputum, wheezing, other Gastrointestinal/Abdominal: Denies: no symptoms, abdomen distended, abdominal pain, black stools, tarry stools, blood in stool, constipated, diarrhea, difficulty swallowing, nausea, poor appetite, poor fluid intake, rectal bleeding, vomiting, other Neurologic/Psychiatric: Denies: no symptoms, anxiety, depressed, emotional problems, headache, numbness, paresthesia, pre-existing deficit, seizure, tingling, tremors, weakness, other Endocrine: Denies: no symptoms, excessive sweating, flushing, intolerance to cold, intolerance to heat, increased hunger, increased thirst, increased urine, unexplained weight gain, unexplained weight loss, other Hematologic/Lymphatic: Denies: no symptoms, anemia, easy bleeding, easy bruising, adenopathy, other Allergies: Coded Allergies: CODEINE (Verified Allergy, Unknown, 02/05/10) Subjective 12/21 is on abx vanc/flagyl, cefepime, on hep, suprapub catheter functional 12/22 no major events, debridement at some pt, dw Dr. Leonard yesterday [facility] 12/23 underwent bedside debridement yesterday, feeling better, dressing in place 12/24 meds reviewed, meds noted, no bleeding, dw rn 12/26 on chelsea, dapto, gent, no bleeding, meds noted, labs reviewed 12/27 wound care, dressing changes, labs reviewed, no bleeding 12/28 labs pending, meds reviewed, no bleeding or night sweats 12/29 labs reviewed, meds ntoed, with elev wbc, on abx 12/30 labs reviewed, wbc is elevated, abx, does not want a new iv line Objective Objective Current Medications Medications (Trade) Dose Ordered Sig/Virginie Route PRN Reason Start Time Stop Time Status Last Admin Dose Admin Acetaminophen (Tylenol) 650 mg Q4H PRN ORAL fever 12/19/19 19:00 01/18/20 18:59 Calcitonin [place] (Miacalcin) 1 sprays DAILY NASAL 12/29/19 10:00 03/28/20 09:59 12/30/19 08:50 Daptomycin 250 mg/ Sodium Chloride 55 ml @ 100 mls/hr Q24H IV 12/24/19 16:00 01/06/20 23:59 12/30/19 16:32 Dextrose (Dextrose 50%) 25 ml Q30M PRN IV Hypoglycemia 12/19/19 19:00 03/18/20 18:59 Dextrose (Dextrose 50%) 50 ml Q30M PRN IV Hypoglycemia 12/19/19 19:00 03/18/20 18:59 Dextrose/Sodium Chloride 1,000 ml @ 125 mls/hr Q8H IV 12/28/19 20:45 01/27/20 20:44 12/31/19 03:15 Folic Acid (Folate) 2 mg DAILY ORAL 12/29/19 13:00 01/28/20 12:59 12/30/19 08:38 Furosemide (Lasix) 20 mg EVERY 8 HOURS IV 12/29/19 22:00 01/28/20 21:59 12/31/19 05:47 Gentamicin Protocol (Gentamicin pharmacy to dose) 1 ea DAILY PRN MISC Per rx protocol 12/24/19 13:00 01/23/20 12:59 Gentamicin Sulfate 300 mg/ Sodium Chloride 117.5 ml @ 117.5 mls/ hr Q36H IVPB 12/31/19 04:00 01/05/20 23:59 12/31/19 03:19 Heparin Sodium (Porcine) (Heparin 5000 units/ml) 5,000 units EVERY 12 HOURS SUBQ 12/19/19 21:00 02/02/20 20:59 12/30/19 20:46 Meropenem 2 gm/ Sodium Chloride 100 ml @ 200 mls/hr Q8HR IVPB 12/26/19 14:00 01/06/20 23:59 12/31/19 05:47 Ondansetron HCl (Zofran) 4 mg Q6H PRN IVP Nausea & Vomiting 12/19/19 19:00 01/18/20 18:59 Patient Own Medication (Patient's Own Med) 1 ea DAILY ORAL 12/21/19 18:00 01/20/20 17:59 12/30/19 08:37 Phosphorus (Phospha 250 Neutral) 250 mg THREE TIMES A DAY ORAL 12/30/19 09:30 01/29/20 09:29 12/30/19 17:21 Polyethylene Glycol (Miralax) 17 gm DAILYPRN PRN ORAL Constipation 12/19/19 19:00 01/18/20 18:59 12/29/19 05:14 Potassium Chloride (K-Dur) 40 meq TID ORAL 12/30/19 13:00 03/28/20 12:59 12/30/19 17:21 Last 24 Hour Vital Signs Date Time Temp Pulse Resp B/P (MAP) Pulse Ox O2 Delivery O2 Flow Rate FiO2 12/31/19 04:00 98.3 77 18 117/68 (84) 95 12/31/19 00:00 98.0 91 18 116/75 (89) 95 12/30/19 21:00 Room Air 12/30/19 20:00 98.1 88 18 136/77 (96) 98 12/30/19 19:03 80 18 94 Room Air 21 12/30/19 16:00 96.8 76 19 105/62 (76) 95 12/30/19 12:00 97.7 86 21 111/69 (83) 97 12/30/19 09:00 Room Air 12/30/19 08:00 98.2 84 20 110/74 (86) 94 12/30/19 04:00 99.0 90 21 128/73 (91) 94 12/30/19 00:00 98.6 92 20 104/62 (76) 94 12/29/19 21:00 Room Air 12/29/19 20:00 98.2 93 24 116/75 (89) 96 12/29/19 16:00 97.9 86 21 119/73 (88) 97 12/29/19 12:00 97.4 87 21 105/59 (74) 97 12/29/19 09:00 Room Air 12/29/19 08:00 97.4 90 22 115/72 (86) 94 Intake and Output 12/30/19 12/31/19 19:00 07:00 Intake Total 200 ml 1292.5 ml Output Total 1500 ml 2000 ml Balance -1300 ml -707.5 ml Intake Oral 200 ml 200 ml IV Total 1092.5 ml Output Urine Total 1500 ml 2000 ml Labs Test 12/28/19 07:22 12/28/19 21:30 12/29/19 05:40 12/29/19 14:30 White Blood Count 16.2 K/UL (4.8-10.8) 14.8 K/UL (4.8-10.8) Red Blood Count 3.93 M/UL (4.70-6.10) 3.31 M/UL (4.70-6.10) Hemoglobin 12.3 G/DL (14.2-18.0) 12.6 G/DL (14.2-18.0) Hematocrit 37.2 % (42.0-52.0) 33.2 % (42.0-52.0) Mean Corpuscular Volume 95 FL (80-99) 100 FL (80-99) Mean Corpuscular Hemoglobin 31.2 PG (27.0-31.0) 38.0 PG (27.0-31.0) Mean Corpuscular Hemoglobin Concent 32.9 G/DL (32.0-36.0) 38.0 G/DL (32.0-36.0) Red Cell Distribution Width 16.5 % (11.6-14.8) 20.0 % (11.6-14.8) Platelet Count 392 K/UL (150-450) 367 K/UL (150-450) Mean Platelet Volume 5.6 FL (6.5-10.1) 5.3 FL (6.5-10.1) Neutrophils (%) (Auto) 79.8 % (45.0-75.0) 76.1 % (45.0-75.0) Lymphocytes (%) (Auto) 9.5 % (20.0-45.0) 12.5 % (20.0-45.0) Monocytes (%) (Auto) 8.9 % (1.0-10.0) 10.0 % (1.0-10.0) Eosinophils (%) (Auto) 1.1 % (0.0-3.0) 1.1 % (0.0-3.0) Basophils (%) (Auto) 0.7 % (0.0-2.0) 0.4 % (0.0-2.0) Sodium Level 139 MMOL/L (136-145) 144 MMOL/L (136-145) Potassium Level 3.6 MMOL/L (3.5-5.1) 3.4 MMOL/L (3.5-5.1) Chloride Level 102 MMOL/L (98-107) 107 MMOL/L (98-107) Carbon Dioxide Level 34 MMOL/L (21-32) 34 MMOL/L (21-32) Anion Gap 3 mmol/L (5-15) 4 mmol/L (5-15) Blood Urea Nitrogen 19 mg/dL (7-18) 26 mg/dL (7-18) Creatinine 1.1 MG/DL (0.55-1.30) 1.2 MG/DL (0.55-1.30) Estimat Glomerular Filtration Rate > 60 mL/min (>60) > 60 mL/min (>60) Glucose Level 99 MG/DL (74-106) 114 MG/DL (74-106) Calcium Level 14.6 MG/DL (8.5-10.1) 14.4 MG/DL (8.5-10.1) Urine Color Pale yellow Urine Appearance Cloudy Urine pH 7 (4.5-8.0) Urine Specific [place] 1.010 (1.005-1.035) Urine Protein 2+ (NEGATIVE) Urine Glucose (UA) Negative (NEGATIVE) Urine Ketones Negative (NEGATIVE) Urine Blood 4+ (NEGATIVE) Urine Nitrite Negative (NEGATIVE) Urine Bilirubin Negative (NEGATIVE) Urine Urobilinogen 4 MG/DL (0.0-1.0) Urine Leukocyte Esterase 1+ (NEGATIVE) Urine RBC 15-20 /HPF (0 - 0) Urine WBC 5-10 /HPF (0 - 0) Urine Squamous Epithelial Cells Few /LPF (NONE/OCC) Urine Amorphous Sediment Many /LPF (NONE) Urine Bacteria Moderate /HPF (NONE) Uric Acid 6.9 MG/DL (2.6-7.2) Calcium (Send out) 13.4 mg/dL (8.6-10.2) Ionized Calcium (Measured) 1.86 mmol/L (1.10-1.35) Phosphorus Level 3.0 MG/DL (2.5-4.9) Magnesium Level 2.0 MG/DL (1.8-2.4) Iron Level 45 ug/dL (50-175) Total Iron Binding Capacity 154 ug/dL (250-450) Percent Iron Saturation 29 % (15-50) Unsaturated Iron Binding 109 ug/dL (112-346) Ferritin 814 NG/ML (8-388) Total Bilirubin 0.4 MG/DL (0.2-1.0) Gamma Glutamyl Transpeptidase 44 U/L (5-85) Aspartate Amino Transf (AST/SGOT) 23 U/L (15-37) Alanine Aminotransferase (ALT/SGPT) 24 U/L (12-78) Alkaline Phosphatase 85 U/L (46-116) Total Protein 7.5 G/DL (6.4-8.2) Albumin 2.2 G/DL (3.4-5.0) Globulin 5.3 g/dL Albumin/Globulin Ratio 0.4 (1.0-2.7) Vitamin B12 Level 591 PG/ML (193-986) Folate 5.2 NG/ML (8.6-58.9) Thyroid Stimulating Hormone (TSH) 1.091 uiU/mL (0.358-3.740) PTH (Intact) Whole Molecule Comment (.) Parathyroid Hormone (Intact) 5 pg/mL (15-65) Gentamicin Level Trough 1.0 ug/mL (0.3-2.0) Test 12/30/19 03:10 12/31/19 05:20 White Blood Count 16.6 K/UL (4.8-10.8) Red Blood Count 3.52 M/UL (4.70-6.10) Hemoglobin 11.2 G/DL (14.2-18.0) Hematocrit 33.9 % (42.0-52.0) Mean Corpuscular Volume 96 FL (80-99) Mean Corpuscular Hemoglobin 31.8 PG (27.0-31.0) Mean Corpuscular Hemoglobin Concent 33.0 G/DL (32.0-36.0) Red Cell Distribution Width 16.9 % (11.6-14.8) Platelet Count 334 K/UL (150-450) Mean Platelet Volume 5.8 FL (6.5-10.1) Neutrophils (%) (Auto) 81.5 % (45.0-75.0) Lymphocytes (%) (Auto) 10.2 % (20.0-45.0) Monocytes (%) (Auto) 7.3 % (1.0-10.0) Eosinophils (%) (Auto) 0.6 % (0.0-3.0) Basophils (%) (Auto) 0.3 % (0.0-2.0) Sodium Level 141 MMOL/L (136-145) Potassium Level 3.1 MMOL/L (3.5-5.1) Chloride Level 107 MMOL/L (98-107) Carbon Dioxide Level 31 MMOL/L (21-32) Anion Gap 3 mmol/L (5-15) Blood Urea Nitrogen 22 mg/dL (7-18) Creatinine 1.2 MG/DL (0.55-1.30) Estimat Glomerular Filtration Rate > 60 mL/min (>60) Glucose Level 119 MG/DL (74-106) Uric Acid 6.1 MG/DL (2.6-7.2) Calcium Level 13.2 MG/DL (8.5-10.1) Phosphorus Level 1.7 MG/DL (2.5-4.9) Magnesium Level 1.9 MG/DL (1.8-2.4) Total Bilirubin 0.3 MG/DL (0.2-1.0) Aspartate Amino Transf (AST/SGOT) 20 U/L (15-37) Alanine Aminotransferase (ALT/SGPT) 19 U/L (12-78) Alkaline Phosphatase 74 U/L (46-116) C-Reactive Protein, Quantitative 21.0 mg/dL (0.00-0.90) Pro-B-Type Natriuretic Peptide 518 pg/mL (0-125) Total Protein 7.0 G/DL (6.4-8.2) Albumin 2.3 G/DL (3.4-5.0) Globulin 4.7 g/dL Albumin/Globulin Ratio 0.5 (1.0-2.7) Random Gentamicin Level 3.6 ug/mL Height (Feet): 5 Height (Inches): 6.00 Weight (Pounds): 132 Objective Physical Exam Sp02 EP Interpretation: reviewed, normal General: no apparent distress, Chronically Ill Heent: normocephalic, atraumatic Respiratory: lungs clear, normal breath sounds Cardiovascular: normal peripheral pulses, regular rate Gastrointestinal: non tender, soft, non-distended, no guarding Genitourinary: other - Large area of necrosis noted in the genital region with purulent discharge, ++suprapub catheter Neurologic: alert, oriented x3 Skin: normal color, warm/dry Mandeep Horta MD Dec 31, 2019 06:55
[2019-12-31 07:24] LABS: ALANINE AMINOTRANSFERASE 28 U/L (12-78); ALBUMIN 2.3 G/DL (3.4-5.0); ALBUMIN/GLOBULIN RATIO 0.5 (1.0-2.7); ALKALINE PHOSPHATASE 78 U/L (46-116); ANION GAP 7 mmol/L (5-15); ASPARTATE AMINO TRANSFERASE 29 U/L (15-37); BILIRUBIN,TOTAL 0.4 MG/DL (0.2-1.0); BLOOD UREA NITROGEN 19 mg/dL (7-18); CALCIUM 11.1 MG/DL (8.5-10.1); CARBON DIOXIDE 28 MMOL/L (21-32); CHLORIDE 107 MMOL/L (98-107); PHOSPHORUS 1.8 MG/DL (2.5-4.9); POTASSIUM 3.1 MMOL/L (3.5-5.1); SODIUM 142 MMOL/L (136-145)
--- NOTE | 2019-12-31 07:24 | NUR ---
HAND-OFF: Report given to MADAN Tierney.
[2019-12-31 07:28] LABS: BASOPHILS % (AUTO) 0.3 % (0.0-2.0); EOSINOPHILS % (AUTO) 0.8 % (0.0-3.0); HEMATOCRIT 27.7 % (42.0-52.0); HEMOGLOBIN 10.9 G/DL (14.2-18.0); LYMPHOCYTES % (AUTO) 10.9 % (20.0-45.0); MEAN CORPUSCULAR VOLUME 92 FL (80-99); MONOCYTES % (AUTO) 5.4 % (1.0-10.0); NEUTROPHILS % (AUTO) 82.6 % (45.0-75.0); PLATELET COUNT 342 K/UL (150-450); RED CELL DISTRIBUTION WIDTH 18.9 % (11.6-14.8); WHITE BLOOD COUNT 17.7 K/UL (4.8-10.8)
--- NOTE | 2019-12-31 07:33 | NUR ---
NURSE NOTES: Received patient from MADAN Condon. Pt awake in bed, alert and oriented x 1-2, no SOB, bed in lowest position with breaks engaged and alarm on, denies any pain or discomfort at this time, IV line patent and intact, suprapubic catheter in place, on room air, will continue to monitor and proceed with plan of care, call light within reach.
--- NOTE | 2019-12-31 07:37 | Infectious Diseases Prog Note ---
Assessment/Plan 59yo M with: UTI -u/a wbc 40/6-, nit +, leuk +2; ucx >100k ESBL e. clocae complex -12/27 UCx NTD Penile necrotic wound infection- polymicrobial -wound cx ESBL E.coli, PsA (R levaquin, I Meropenem), E, gallinarum (R vanco, S Amp) Afebrile Leukocytosis, increased Urethral CA dx'ed 2019 sp chemotherapy x 12 sessions and radiation x8 sessions and surgical intervention (follows at [facility]) hx of penile abscess HIV on Symtuza (dx'ed 20 yrs ago) Former smoker (quit 8yrs ago) Recurrent UTI on bactrim ppx Urinary retention sp chronic suprapubic tube SNF resident ([facility]) Plan: Daptomycin #8 / 14 12/24 CK =11, check w/ AM labs tomorrow Meropenem # / for ESBL Gentamycin # / as PsA intermediate to meropenem If no more debridement is planned, would continue IV abx for a total of 14 day course then stop and continue aggressive wound care. End date of all abx to be 01/05 -12/23 SP IV Vancomycin #6 -12/21 SP Cefepime #4, Flagyl #2 -12/18 SP Meropenem x1 -f/u cx -Monitor CBC/CMP, temperatures -wound cx -Uro and Gen sx f/u -wound care per surgical team D/w RN Thank you for consulting [facility]. Will continue to follow along with you. Subjective Allergies: Coded Allergies: CODEINE (Verified Allergy, Unknown, 02/05/10) AF NAD WBC stable at 17 No new complaints Objective Last 24 Hour Vital Signs Date Time Temp Pulse Resp B/P (MAP) Pulse Ox O2 Delivery O2 Flow Rate FiO2 12/31/19 04:00 98.3 77 18 117/68 (84) 95 12/31/19 00:00 98.0 91 18 116/75 (89) 95 12/30/19 21:00 Room Air 12/30/19 20:00 98.1 88 18 136/77 (96) 98 12/30/19 19:03 80 18 94 Room Air 21 12/30/19 16:00 96.8 76 19 105/62 (76) 95 12/30/19 12:00 97.7 86 21 111/69 (83) 97 12/30/19 09:00 Room Air 12/30/19 08:00 98.2 84 20 110/74 (86) 94 Height (Feet): 5 Height (Inches): 6.00 Weight (Pounds): 132 Gen: NAD in bed HEENT: NCAT, EOMI, PERRL CV: RRR Pulm: CTAB on RA Abd: Soft, NTND Ext: No c/c/e : Necrotic penis with swollen base and open wound wo significant discharge or surrounding erythema Neuro: Awake Microbiology Date/Time Source Procedure Growth Status 12/28/19 21:30 Urine,Clean Catch Urine Culture - Preliminary NO GROWTH Resulted Laboratory Tests Test 12/31/19 05:20 White Blood Count 17.7 K/UL (4.8-10.8) H Red Blood Count 3.00 M/UL (4.70-6.10) L Hemoglobin 10.9 G/DL (14.2-18.0) L Hematocrit 27.7 % (42.0-52.0) L Mean Corpuscular Volume 92 FL (80-99) Mean Corpuscular Hemoglobin 36.5 PG (27.0-31.0) H Mean Corpuscular Hemoglobin Concent 39.4 G/DL (32.0-36.0) H Red Cell Distribution Width 18.9 % (11.6-14.8) H Platelet Count 342 K/UL (150-450) Mean Platelet Volume 5.3 FL (6.5-10.1) L Neutrophils (%) (Auto) 82.6 % (45.0-75.0) H Lymphocytes (%) (Auto) 10.9 % (20.0-45.0) L Monocytes (%) (Auto) 5.4 % (1.0-10.0) Eosinophils (%) (Auto) 0.8 % (0.0-3.0) Basophils (%) (Auto) 0.3 % (0.0-2.0) Sodium Level 142 MMOL/L (136-145) Potassium Level 3.1 MMOL/L (3.5-5.1) L Chloride Level 107 MMOL/L (98-107) Carbon Dioxide Level 28 MMOL/L (21-32) Anion Gap 7 mmol/L (5-15) Blood Urea Nitrogen 19 mg/dL (7-18) H Creatinine 1.0 MG/DL (0.55-1.30) Estimat Glomerular Filtration Rate > 60 mL/min (>60) Glucose Level 105 MG/DL (74-106) Uric Acid 5.2 MG/DL (2.6-7.2) Calcium Level 11.1 MG/DL (8.5-10.1) H Phosphorus Level 1.8 MG/DL (2.5-4.9) L Magnesium Level 1.8 MG/DL (1.8-2.4) Total Bilirubin 0.4 MG/DL (0.2-1.0) Aspartate Amino Transf (AST/SGOT) 29 U/L (15-37) Alanine Aminotransferase (ALT/SGPT) 28 U/L (12-78) Alkaline Phosphatase 78 U/L (46-116) Total Protein 7.1 G/DL (6.4-8.2) Albumin 2.3 G/DL (3.4-5.0) L Globulin 4.8 g/dL Albumin/Globulin Ratio 0.5 (1.0-2.7) L Current Medications Medications (Trade) Dose Ordered Sig/Virginie Route PRN Reason Start Time Stop Time Status Last Admin Dose Admin Acetaminophen (Tylenol) 650 mg Q4H PRN ORAL fever 12/19/19 19:00 01/18/20 18:59 Calcitonin [place] (Miacalcin) 1 sprays DAILY NASAL 12/29/19 10:00 03/28/20 09:59 12/30/19 08:50 Daptomycin 250 mg/ Sodium Chloride 55 ml @ 100 mls/hr Q24H IV 12/24/19 16:00 01/06/20 23:59 12/30/19 16:32 Dextrose (Dextrose 50%) 25 ml Q30M PRN IV Hypoglycemia 12/19/19 19:00 03/18/20 18:59 Dextrose (Dextrose 50%) 50 ml Q30M PRN IV Hypoglycemia 12/19/19 19:00 03/18/20 18:59 Dextrose/Sodium Chloride 1,000 ml @ 125 mls/hr Q8H IV 12/28/19 20:45 01/27/20 20:44 12/31/19 03:15 Folic Acid (Folate) 2 mg DAILY ORAL 12/29/19 13:00 12/17/20 12:59 12/30/19 08:38 Furosemide (Lasix) 20 mg EVERY 8 HOURS IV 12/29/19 22:00 01/28/20 21:59 12/31/19 05:47 Gentamicin Protocol (Gentamicin pharmacy to dose) 1 ea DAILY PRN MISC Per rx protocol 12/24/19 13:00 01/23/20 12:59 Gentamicin Sulfate 300 mg/ Sodium Chloride 117.5 ml @ 117.5 mls/ hr Q36H IVPB 12/31/19 04:00 01/05/20 23:59 12/31/19 03:19 Heparin Sodium (Porcine) (Heparin 5000 units/ml) 5,000 units EVERY 12 HOURS SUBQ 12/19/19 21:00 02/02/20 20:59 12/30/19 20:46 Meropenem 2 gm/ Sodium Chloride 100 ml @ 200 mls/hr Q8HR IVPB 12/26/19 14:00 01/06/20 23:59 12/31/19 05:47 Ondansetron HCl (Zofran) 4 mg Q6H PRN IVP Nausea & Vomiting 12/19/19 19:00 01/18/20 18:59 Patient Own Medication (Patient's Own Med) 1 ea DAILY ORAL 12/21/19 18:00 01/20/20 17:59 12/30/19 08:37 Phosphorus (Phospha 250 Neutral) 250 mg THREE TIMES A DAY ORAL 12/30/19 09:30 01/29/20 09:29 12/30/19 17:21 Polyethylene Glycol (Miralax) 17 gm DAILYPRN PRN ORAL Constipation 12/19/19 19:00 01/18/20 18:59 12/29/19 05:14 Potassium Chloride (K-Dur) 40 meq TID ORAL 12/30/19 13:00 03/28/20 12:59 12/30/19 17:21 Suellen Riojas M.D. Dec 31, 2019 07:37
[2019-12-31 08:00] VITALS: BP 114/69
[2019-12-31] MEDS: Phospha 250 Neutral tab ORAL SCH ×3 (08:28→17:30)
[2019-12-31] MEDS: Potassium Phosphate 15mm/250ml 250 ML IVPB SCH ×2 (08:28→12:22)
[2019-12-31] MEDS: SYMTUZA ORAL SCH (08:29)
[2019-12-31] MEDS: Heparin 5000 units/ml inj SUBQ SCH ×2 (08:30→21:08)
--- NOTE | 2019-12-31 09:13 | Urology Progress Note ---
Assessment/Plan Assessment/Plan: 1. History of urethral cancer, status post chemo and immunotherapy and radiation with previous debridement. 2. Urinary retention and a chronic suprapubic tube. 3. Probable neurogenic bladder. 4. UTI and colonization. 5. Hematuria. 6. Proteinuria. 7. Mild acute kidney injury. monitor clinically maintain SPT, last exchanged 12/25 hand irrigated and do PRN abx as ordered local wound care debridement PRN f/u on last urine cx Subjective Allergies: Coded Allergies: CODEINE (Verified Allergy, Unknown, 02/05/10) Subjective all noted, more confused new SPT draining ok Objective Last 24 Hour Vital Signs Date Time Temp Pulse Resp B/P (MAP) Pulse Ox O2 Delivery O2 Flow Rate FiO2 12/31/19 08:00 97.3 87 18 114/69 (84) 97 12/31/19 04:00 98.3 77 18 117/68 (84) 95 12/31/19 00:00 98.0 91 18 116/75 (89) 95 12/30/19 21:00 Room Air 12/30/19 20:00 98.1 88 18 136/77 (96) 98 12/30/19 19:03 80 18 94 Room Air 21 12/30/19 16:00 96.8 76 19 105/62 (76) 95 12/30/19 12:00 97.7 86 21 111/69 (83) 97 Intake and Output 12/30/19 12/31/19 19:00 07:00 Intake Total 200 ml 1292.5 ml Output Total 1500 ml 2000 ml Balance -1300 ml -707.5 ml Intake Oral 200 ml 200 ml IV Total 1092.5 ml Output Urine Total 1500 ml 2000 ml Microbiology Date/Time Source Procedure Growth Status 12/28/19 21:30 Urine,Clean Catch Urine Culture - Preliminary NO GROWTH Resulted 12/21/19 16:45 Penis Gram Stain - Final Complete 12/21/19 16:45 Wound Culture - Final Pseudomonas Aeruginosa Escherichia Coli - Esbl Enterococcus Gallinarum Complete 12/20/19 10:20 Rectal Mucosa - Final NO CARBAPENEM-RESISTANT ENTEROBACTERI... Complete 12/19/19 16:25 Blood Blood Culture - Final NO GROWTH AFTER 5 DAYS Complete Current Medications Medications (Trade) Dose Ordered Sig/Virginie Route PRN Reason Start Time Stop Time Status Last Admin Dose Admin Acetaminophen (Tylenol) 650 mg Q4H PRN ORAL fever 12/19/19 19:00 01/18/20 18:59 Calcitonin [place] (Miacalcin) 1 sprays DAILY NASAL 12/29/19 10:00 03/28/20 09:59 12/31/19 08:29 Daptomycin 250 mg/ Sodium Chloride 55 ml @ 100 mls/hr Q24H IV 12/24/19 16:00 01/06/20 23:59 12/30/19 16:32 Dextrose (Dextrose 50%) 25 ml Q30M PRN IV Hypoglycemia 12/19/19 19:00 03/18/20 18:59 Dextrose (Dextrose 50%) 50 ml Q30M PRN IV Hypoglycemia 12/19/19 19:00 03/18/20 18:59 Dextrose/Sodium Chloride 1,000 ml @ 125 mls/hr Q8H IV 12/28/19 20:45 01/27/20 20:44 12/31/19 03:15 Folic Acid (Folate) 2 mg DAILY ORAL 12/29/19 13:00 01/28/20 12:59 12/31/19 08:29 Furosemide (Lasix) 20 mg EVERY 12 HOURS IV 12/31/19 21:00 01/28/20 21:59 Gentamicin Protocol (Gentamicin pharmacy to dose) 1 ea DAILY PRN MISC Per rx protocol 12/24/19 13:00 01/23/20 12:59 Gentamicin Sulfate 300 mg/ Sodium Chloride 117.5 ml @ 117.5 mls/ hr Q36H IVPB 12/31/19 04:00 01/05/20 23:59 12/31/19 03:19 Heparin Sodium (Porcine) (Heparin 5000 units/ml) 5,000 units EVERY 12 HOURS SUBQ 12/19/19 21:00 02/02/20 20:59 12/31/19 08:30 Meropenem 2 gm/ Sodium Chloride 100 ml @ 200 mls/hr Q8HR IVPB 12/26/19 14:00 01/06/20 23:59 12/31/19 05:47 Ondansetron HCl (Zofran) 4 mg Q6H PRN IVP Nausea & Vomiting 12/19/19 19:00 01/18/20 18:59 Patient Own Medication (Patient's Own Med) 1 ea DAILY ORAL 12/21/19 18:00 01/20/20 17:59 12/31/19 08:29 Phosphorus (Phospha 250 Neutral) 500 mg THREE TIMES A DAY ORAL 12/31/19 09:00 01/29/20 09:29 12/31/19 08:28 Polyethylene Glycol (Miralax) 17 gm DAILYPRN PRN ORAL Constipation 12/19/19 19:00 01/18/20 18:59 12/29/19 05:14 Potassium Phosphate 250 ml @ 62.5 mls/hr Q4H IVPB 12/31/19 08:00 12/31/19 15:59 12/31/19 08:28 Potassium Chloride (K-Dur) 40 meq QID ORAL 12/31/19 09:00 03/28/20 12:59 12/31/19 08:29 Laboratory Tests 12/31/19 05:20: White Blood Count 17.7H, Red Blood Count 3.00L, Hemoglobin 10.9L, Hematocrit 27.7L, Mean Corpuscular Volume 92, Mean Corpuscular Hemoglobin 36.5H, Mean Corpuscular Hemoglobin Concent 39.4H, Red Cell Distribution Width 18.9H, Platelet Count 342, Mean Platelet Volume 5.3L, Neutrophils (%) (Auto) 82.6H, Lymphocytes (%) (Auto) 10.9L, Monocytes (%) (Auto) 5.4, Eosinophils (%) (Auto) 0.8, Basophils (%) (Auto) 0.3, Sodium Level 142, Potassium Level 3.1L, Chloride Level 107, Carbon Dioxide Level 28, Anion Gap 7, Blood Urea Nitrogen 19H, Creatinine 1.0, Estimat Glomerular Filtration Rate > 60, Glucose Level 105, Uric Acid 5.2, Calcium Level 11.1H, Phosphorus Level 1.8L, Magnesium Level 1.8, Total Bilirubin 0.4, Aspartate Amino Transf (AST/SGOT) 29, Alanine Aminotransferase (ALT/SGPT) 28, Alkaline Phosphatase 78, Total Protein 7.1, Albumin 2.3L, Globulin 4.8, Albumin/Globulin Ratio 0.5L Height (Feet): 5 Height (Inches): 6.00 Weight (Pounds): 132 Objective exam stable granulation tissue Chas Larsen MD Dec 31, 2019 09:13
--- NOTE | 2019-12-31 10:23 | Nephrology Progress Note ---
Assessment/Plan Problem List: (1) Hypercalcemia (2) Urethral cancer (3) Penile abscess (4) Encephalopathy Plan December 30: Serum calcium continues to decline. Continue hydrate. Down on IV Lasix to every 12 hours. Continue to monitor calcium phosphorus and magnesium. Potassium and phosphorus supplements given. December 29: Serum calcium remains elevated however is going down on current treatment plan. Abnormal electrolytes addressed. Continue to monitor serum calcium. December 28: IV hydration 125 cc an hour Lasix 20 mg every 8 hours Nasal calcitonin 1 dose of pamidronate 90 mg IV piggyback Waiting for PTH and PTH related protein results Replace low folic acid Continue to monitor electrolytes and chemistries Per orders Subjective ROS Limited/Unobtainable: No Constitutional: Reports: malaise Objective Objective Last 24 Hour Vital Signs Date Time Temp Pulse Resp B/P (MAP) Pulse Ox O2 Delivery O2 Flow Rate FiO2 12/31/19 09:00 Room Air 12/31/19 08:00 97.3 87 18 114/69 (84) 97 12/31/19 04:00 98.3 77 18 117/68 (84) 95 12/31/19 00:00 98.0 91 18 116/75 (89) 95 12/30/19 21:00 Room Air 12/30/19 20:00 98.1 88 18 136/77 (96) 98 12/30/19 19:03 80 18 94 Room Air 21 12/30/19 16:00 96.8 76 19 105/62 (76) 95 12/30/19 12:00 97.7 86 21 111/69 (83) 97 Intake and Output 12/30/19 12/31/19 19:00 07:00 Intake Total 200 ml 1292.5 ml Output Total 1500 ml 2000 ml Balance -1300 ml -707.5 ml Intake Oral 200 ml 200 ml IV Total 1092.5 ml Output Urine Total 1500 ml 2000 ml Current Medications Medications (Trade) Dose Ordered Sig/Virginie Route PRN Reason Start Time Stop Time Status Last Admin Dose Admin Acetaminophen (Tylenol) 650 mg Q4H PRN ORAL fever 12/19/19 19:00 01/18/20 18:59 Calcitonin [place] (Miacalcin) 1 sprays DAILY NASAL 12/29/19 10:00 03/28/20 09:59 12/31/19 08:29 Daptomycin 250 mg/ Sodium Chloride 55 ml @ 100 mls/hr Q24H IV 12/24/19 16:00 01/06/20 23:59 12/30/19 16:32 Dextrose (Dextrose 50%) 25 ml Q30M PRN IV Hypoglycemia 12/19/19 19:00 03/18/20 18:59 Dextrose (Dextrose 50%) 50 ml Q30M PRN IV Hypoglycemia 12/19/19 19:00 03/18/20 18:59 Dextrose/Sodium Chloride 1,000 ml @ 125 mls/hr Q8H IV 12/28/19 20:45 01/27/20 20:44 12/31/19 03:15 Folic Acid (Folate) 2 mg DAILY ORAL 12/29/19 13:00 01/28/20 12:59 12/31/19 08:29 Furosemide (Lasix) 20 mg EVERY 12 HOURS IV 12/31/19 21:00 01/28/20 21:59 Gentamicin Protocol (Gentamicin pharmacy to dose) 1 ea DAILY PRN MISC Per rx protocol 12/24/19 13:00 01/23/20 12:59 Gentamicin Sulfate 300 mg/ Sodium Chloride 117.5 ml @ 117.5 mls/ hr Q36H IVPB 12/31/19 04:00 01/05/20 23:59 12/31/19 03:19 Heparin Sodium (Porcine) (Heparin 5000 units/ml) 5,000 units EVERY 12 HOURS SUBQ 12/19/19 21:00 02/02/20 20:59 12/31/19 08:30 Meropenem 2 gm/ Sodium Chloride 100 ml @ 200 mls/hr Q8HR IVPB 12/26/19 14:00 01/06/20 23:59 12/31/19 05:47 Ondansetron HCl (Zofran) 4 mg Q6H PRN IVP Nausea & Vomiting 12/19/19 19:00 01/18/20 18:59 Patient Own Medication (Patient's Own Med) 1 ea DAILY ORAL 12/21/19 18:00 01/20/20 17:59 12/31/19 08:29 Phosphorus (Phospha 250 Neutral) 500 mg THREE TIMES A DAY ORAL 12/31/19 09:00 01/29/20 09:29 12/31/19 08:28 Polyethylene Glycol (Miralax) 17 gm DAILYPRN PRN ORAL Constipation 12/19/19 19:00 01/18/20 18:59 12/29/19 05:14 Potassium Phosphate 250 ml @ 62.5 mls/hr Q4H IVPB 12/31/19 08:00 12/31/19 15:59 12/31/19 08:28 Potassium Chloride (K-Dur) 40 meq QID ORAL 12/31/19 09:00 03/28/20 12:59 12/31/19 08:29 Laboratory Tests 12/31/19 05:20: White Blood Count 17.7H, Red Blood Count 3.00L, Hemoglobin 10.9L, Hematocrit 27.7L, Mean Corpuscular Volume 92, Mean Corpuscular Hemoglobin 36.5H, Mean Corpuscular Hemoglobin Concent 39.4H, Red Cell Distribution Width 18.9H, Platelet Count 342, Mean Platelet Volume 5.3L, Neutrophils (%) (Auto) 82.6H, Lymphocytes (%) (Auto) 10.9L, Monocytes (%) (Auto) 5.4, Eosinophils (%) (Auto) 0.8, Basophils (%) (Auto) 0.3, Sodium Level 142, Potassium Level 3.1L, Chloride Level 107, Carbon Dioxide Level 28, Anion Gap 7, Blood Urea Nitrogen 19H, Creatinine 1.0, Estimat Glomerular Filtration Rate > 60, Glucose Level 105, Uric Acid 5.2, Calcium Level 11.1H, Phosphorus Level 1.8L, Magnesium Level 1.8, Total Bilirubin 0.4, Aspartate Amino Transf (AST/SGOT) 29, Alanine Aminotransferase (ALT/SGPT) 28, Alkaline Phosphatase 78, Total Protein 7.1, Albumin 2.3L, Globulin 4.8, Albumin/Globulin Ratio 0.5L Height (Feet): 5 Height (Inches): 6.00 Weight (Pounds): 132 General Appearance: no apparent distress, lethargic Cardiovascular: tachycardia Respiratory/Chest: decreased breath sounds Abdomen: soft Keaton oDran MD Dec 31, 2019 10:22
[2019-12-31 12:00] VITALS: BP 110/62
--- NOTE | 2019-12-31 13:02 | Surgery Progress Note ---
Surgery Progress Note Subjective Symptoms: improved, tolerating diet, voiding well, passing flatus, BM Objective Last 24 Hour Vital Signs Date Time Temp Pulse Resp B/P (MAP) Pulse Ox O2 Delivery O2 Flow Rate FiO2 12/31/19 12:00 98.6 92 20 110/62 (78) 94 12/31/19 09:00 Room Air 12/31/19 08:00 97.3 87 18 114/69 (84) 97 12/31/19 04:00 98.3 77 18 117/68 (84) 95 12/31/19 00:00 98.0 91 18 116/75 (89) 95 12/30/19 21:00 Room Air 12/30/19 20:00 98.1 88 18 136/77 (96) 98 12/30/19 19:03 80 18 94 Room Air 21 12/30/19 16:00 96.8 76 19 105/62 (76) 95 I&O Intake and Output 12/30/19 12/31/19 19:00 07:00 Intake Total 200 ml 1292.5 ml Output Total 1500 ml 2000 ml Balance -1300 ml -707.5 ml Intake Oral 200 ml 200 ml IV Total 1092.5 ml Output Urine Total 1500 ml 2000 ml Dressing: saturated Cardiovascular: RSR Respiratory: decreased breath sounds Abdomen: non-tender, present bowel sounds, non-distended Extremities: no edema, no tenderness, no cyanosis Laboratory Tests Test 12/31/19 05:20 White Blood Count 17.7 K/UL (4.8-10.8) H Red Blood Count 3.00 M/UL (4.70-6.10) L Hemoglobin 10.9 G/DL (14.2-18.0) L Hematocrit 27.7 % (42.0-52.0) L Mean Corpuscular Volume 92 FL (80-99) Mean Corpuscular Hemoglobin 36.5 PG (27.0-31.0) H Mean Corpuscular Hemoglobin Concent 39.4 G/DL (32.0-36.0) H Red Cell Distribution Width 18.9 % (11.6-14.8) H Platelet Count 342 K/UL (150-450) Mean Platelet Volume 5.3 FL (6.5-10.1) L Neutrophils (%) (Auto) 82.6 % (45.0-75.0) H Lymphocytes (%) (Auto) 10.9 % (20.0-45.0) L Monocytes (%) (Auto) 5.4 % (1.0-10.0) Eosinophils (%) (Auto) 0.8 % (0.0-3.0) Basophils (%) (Auto) 0.3 % (0.0-2.0) Sodium Level 142 MMOL/L (136-145) Potassium Level 3.1 MMOL/L (3.5-5.1) L Chloride Level 107 MMOL/L (98-107) Carbon Dioxide Level 28 MMOL/L (21-32) Anion Gap 7 mmol/L (5-15) Blood Urea Nitrogen 19 mg/dL (7-18) H Creatinine 1.0 MG/DL (0.55-1.30) Estimat Glomerular Filtration Rate > 60 mL/min (>60) Glucose Level 105 MG/DL (74-106) Uric Acid 5.2 MG/DL (2.6-7.2) Calcium Level 11.1 MG/DL (8.5-10.1) H Phosphorus Level 1.8 MG/DL (2.5-4.9) L Magnesium Level 1.8 MG/DL (1.8-2.4) Total Bilirubin 0.4 MG/DL (0.2-1.0) Aspartate Amino Transf (AST/SGOT) 29 U/L (15-37) Alanine Aminotransferase (ALT/SGPT) 28 U/L (12-78) Alkaline Phosphatase 78 U/L (46-116) Total Protein 7.1 G/DL (6.4-8.2) Albumin 2.3 G/DL (3.4-5.0) L Globulin 4.8 g/dL Albumin/Globulin Ratio 0.5 (1.0-2.7) L Plan Problems: (1) Penile abscess Assessment & Plan: 61-year-old male with known urethral cancer status post chemoradiation presented with worsening wound necrosis and potential infection of the site. Patient seen prior penis necrosis falling off now remaining soft tissue in the malignancy region also with necrotic nonviable tissue identified. Drainage is serosanguineous at times sometimes serious and does not seem significant purulent. The cellulitis is minimal. Patient's labs noted. Given patient's history condition immunocompromise status recommend IV antibiotics. I discussed the patient and considerations for debriding some of the nonviable tissue though this will not in any way improve his cancer stated could help with local wound care. Patient expressed understanding we will continue to follow with local care and provide as necessary. No drainage of abscess identified at this time we will monitor thank you f/u with primary onc as per heme labs noted on rx wounds and slough/necrotic tissue debridement at bedside penis is fully necrotic and hanging off. will discuss consideration of operative debridement including penis. not recommended at bedside given likely bleeding with debridement. does not want further debridement at this time states feels much better wound less foul odor after last clean ing d/c planning (2) Urethral cancer (3) Abscess (4) Sepsis (5) Catheter-associated urinary tract infection Romain Li Dec 31, 2019 13:02
--- NOTE | 2019-12-31 14:09 | Internal Med Progress Note ---
Subjective Physician Name Ron Enriquez Attending Physician Ron Enriquez MD Current Medications Medications (Trade) Dose Ordered Sig/Virginie Route PRN Reason Start Time Stop Time Status Last Admin Dose Admin Acetaminophen (Tylenol) 650 mg Q4H PRN ORAL fever 12/19/19 19:00 01/18/20 18:59 Calcitonin [place] (Miacalcin) 1 sprays DAILY NASAL 12/29/19 10:00 03/28/20 09:59 12/31/19 08:29 Daptomycin 250 mg/ Sodium Chloride 55 ml @ 100 mls/hr Q24H IV 12/24/19 16:00 01/06/20 23:59 12/30/19 16:32 Dextrose (Dextrose 50%) 25 ml Q30M PRN IV Hypoglycemia 12/19/19 19:00 03/18/20 18:59 Dextrose (Dextrose 50%) 50 ml Q30M PRN IV Hypoglycemia 12/19/19 19:00 03/18/20 18:59 Dextrose/Sodium Chloride 1,000 ml @ 125 mls/hr Q8H IV 12/28/19 20:45 01/27/20 20:44 12/31/19 11:10 Folic Acid (Folate) 2 mg DAILY ORAL 12/29/19 13:00 01/28/20 12:59 12/31/19 08:29 Furosemide (Lasix) 20 mg EVERY 12 HOURS IV 12/31/19 21:00 01/28/20 21:59 Gentamicin Protocol (Gentamicin pharmacy to dose) 1 ea DAILY PRN MISC Per rx protocol 12/24/19 13:00 01/23/20 12:59 Gentamicin Sulfate 300 mg/ Sodium Chloride 117.5 ml @ 117.5 mls/ hr Q36H IVPB 12/31/19 04:00 01/05/20 23:59 12/31/19 03:19 Heparin Sodium (Porcine) (Heparin 5000 units/ml) 5,000 units EVERY 12 HOURS SUBQ 12/19/19 21:00 02/02/20 20:59 12/31/19 08:30 Meropenem 2 gm/ Sodium Chloride 100 ml @ 200 mls/hr Q8HR IVPB 12/26/19 14:00 01/06/20 23:59 12/31/19 14:07 Ondansetron HCl (Zofran) 4 mg Q6H PRN IVP Nausea & Vomiting 12/19/19 19:00 01/18/20 18:59 Patient Own Medication (Patient's Own Med) 1 ea DAILY ORAL 12/21/19 18:00 01/20/20 17:59 12/31/19 08:29 Phosphorus (Phospha 250 Neutral) 500 mg THREE TIMES A DAY ORAL 12/31/19 09:00 01/29/20 09:29 12/31/19 12:21 Polyethylene Glycol (Miralax) 17 gm DAILYPRN PRN ORAL Constipation 12/19/19 19:00 01/18/20 18:59 12/29/19 05:14 Potassium Phosphate 250 ml @ 62.5 mls/hr Q4H IVPB 12/31/19 08:00 12/31/19 15:59 12/31/19 12:22 Potassium Chloride (K-Dur) 40 meq QID ORAL 12/31/19 09:00 03/28/20 12:59 12/31/19 12:21 Allergies: Coded Allergies: CODEINE (Verified Allergy, Unknown, 02/05/10) Subjective awake, alert, responsive, NAD, WBC: 17.7. Objective Last Vital Signs Date Time Temp Pulse Resp B/P (MAP) Pulse Ox O2 Delivery O2 Flow Rate FiO2 12/31/19 12:00 98.6 92 20 110/62 (78) 94 12/31/19 09:00 Room Air 12/30/19 19:03 21 Laboratory Tests Test 12/31/19 05:20 White Blood Count 17.7 K/UL (4.8-10.8) H Red Blood Count 3.00 M/UL (4.70-6.10) L Hemoglobin 10.9 G/DL (14.2-18.0) L Hematocrit 27.7 % (42.0-52.0) L Mean Corpuscular Volume 92 FL (80-99) Mean Corpuscular Hemoglobin 36.5 PG (27.0-31.0) H Mean Corpuscular Hemoglobin Concent 39.4 G/DL (32.0-36.0) H Red Cell Distribution Width 18.9 % (11.6-14.8) H Platelet Count 342 K/UL (150-450) Mean Platelet Volume 5.3 FL (6.5-10.1) L Neutrophils (%) (Auto) 82.6 % (45.0-75.0) H Lymphocytes (%) (Auto) 10.9 % (20.0-45.0) L Monocytes (%) (Auto) 5.4 % (1.0-10.0) Eosinophils (%) (Auto) 0.8 % (0.0-3.0) Basophils (%) (Auto) 0.3 % (0.0-2.0) Sodium Level 142 MMOL/L (136-145) Potassium Level 3.1 MMOL/L (3.5-5.1) L Chloride Level 107 MMOL/L (98-107) Carbon Dioxide Level 28 MMOL/L (21-32) Anion Gap 7 mmol/L (5-15) Blood Urea Nitrogen 19 mg/dL (7-18) H Creatinine 1.0 MG/DL (0.55-1.30) Estimat Glomerular Filtration Rate > 60 mL/min (>60) Glucose Level 105 MG/DL (74-106) Uric Acid 5.2 MG/DL (2.6-7.2) Calcium Level 11.1 MG/DL (8.5-10.1) H Phosphorus Level 1.8 MG/DL (2.5-4.9) L Magnesium Level 1.8 MG/DL (1.8-2.4) Total Bilirubin 0.4 MG/DL (0.2-1.0) Aspartate Amino Transf (AST/SGOT) 29 U/L (15-37) Alanine Aminotransferase (ALT/SGPT) 28 U/L (12-78) Alkaline Phosphatase 78 U/L (46-116) Total Protein 7.1 G/DL (6.4-8.2) Albumin 2.3 G/DL (3.4-5.0) L Globulin 4.8 g/dL Albumin/Globulin Ratio 0.5 (1.0-2.7) L Microbiology Date/Time Source Procedure Growth Status 12/28/19 21:30 Urine,Clean Catch Urine Culture - Final NO GROWTH AFTER 48 HOURS Complete Intake and Output 12/30/19 12/31/19 19:00 07:00 Intake Total 200 ml 1292.5 ml Output Total 1500 ml 2000 ml Balance -1300 ml -707.5 ml Intake Oral 200 ml 200 ml IV Total 1092.5 ml Output Urine Total 1500 ml 2000 ml Objective GENERAL: awake, alert, responsive, chronic ill appearance, in no apparent distress. HEENT: Eyes, pupils equal and responsive to light and accommodation. Extraocular movements are intact. NECK: Supple without lymphadenopathy. CHEST: Lungs are clear to auscultation bilaterally without wheezes or rales. CARDIOVASCULAR: Regular rate. S1, S2 are normal without murmurs or gallops. ABDOMEN: Soft, nontender, and nondistended. Positive bowel sounds. EXTREMITIES: Negative for clubbing, cyanosis, or edema. RECTAL AND GENITAL: Large fungating mass over the penile and scrotal region. suprapubic cath intact. NEUROLOGICAL: Cranial nerves II through XII are grossly intact without focal deficits. Motor strength is 5/5 bilaterally intact. Assessment/Plan Assessment/Plan ASSESSMENT: This is a 59-year-old male with: 1. Recurrent Urinary tract infection=E. Coli ESBL, Enterococci, Pseudomonas 2. Penile abscess. 3. HIV. 4. Urethral cancer. 5. Sepsis TREATMENT: 1. Urinary tract infection/penile abscess. Antibiotics=Meropenem, Daptomycin, Gentamicin. Infectious Disease consulltation = Dr. Rider. 2. HIV. Continue Symtuza as above. 3. Penile/urethral cancer. Oncology consultation = Dr. Mandeep Horta. Urology consultation = Dr. Chas Larsen. Code status: Full code DVT prophylaxis: Heparin SQ. Monitor labs and cultures Daptomycin #8 / 14 Meropenem #10 / 16 for ESBL Gentamycin #8 / 14 as PsA intermediate to meropenem If no more debridement is planned, would continue IV abx for a total of 14 day course then stop and continue aggressive wound care. End date of all abx to be 01/05 Ron Enriquez MD Dec 31, 2019 14:09
[2019-12-31 16:00] VITALS: BP 105/68
[2019-12-31] MEDS: DAPTOmycin 250 MG in NS 55 ML IV SCH (16:40)
--- NOTE | 2019-12-31 19:09 | NUR ---
NURSE HAND-OFF: Important Events on Shift:[IV ATBS and fluids, wound care, skin mgt, monitoring labs and vitals] Patient Status: [stable] Diet: [regular] Pending Orders: [] Pending Results/Labs:[] Pending MD notification:[] Latest Vital Signs: Temperature 97.0 , Pulse 92 , B/P 105 /68 , Respiratory Rate 20 , O2 SAT 94 , Room Air, O2 Flow Rate 5.0 . Vital Sign Comment: [] Latest Rahman Fall Score: 35 Fall Risk: Medium Risk Safety Measures: Call light Within Reach, Bed Alarm Zone 1, Side Rails Side Rails x2, Bed position Low and Locked. Fall Precautions: Yellow Socks Patient Fall Education Report given to [MADAN Condon].
--- NOTE | 2019-12-31 19:33 | NUR ---
NURSE NOTES: Patient awake in bed, touching his catheter. Reorientation done. Explained the risks and benefits of keeping the catheter intact. Call light and needs in reach. Bed in lowest, lock engaged and alarm on. Will continue plan of care.
[2019-12-31 20:00] VITALS: BP 140/74
[2020-01-01] VITALS: BP 106/64
[2020-01-01 04:00] VITALS: BP 105/62
[2020-01-01] MEDS: Gentamicin inj 300 MG in NS 110 ML IVPB SCH (04:19)
[2020-01-01] MEDS: D5NS 1,000 ML IV SCH ×2 (04:35→13:37)
--- NOTE | 2020-01-01 06:14 | NUR ---
NURSE HAND-OFF: Important Events on Shift: Dressing changed, tylenol was given for pain, pt ate dinner 10% from tray but had 1 bottle of ensure Patient Status: Diet: Regular Pending Orders: AM labs Pending Results/Labs: Pending MD notification: Latest Vital Signs: Temperature 97.9 , Pulse 77 , B/P 105 /62 , Respiratory Rate 21 , O2 SAT 97 , Room Air, O2 Flow Rate 5.0 . Vital Sign Comment: Latest Rahman Fall Score: 35 Fall Risk: Medium Risk Safety Measures: Call light Within Reach, Bed Alarm Zone 1, Side Rails Side Rails x2, Bed position Low and Locked. Fall Precautions: Yellow Socks Patient Fall Education
--- NOTE | 2020-01-01 07:10 | NUR ---
NURSE NOTES: Received patient in bed, patient awake, alert and oriented 2, reality orientation provided, denies pain or discomfort, at this time, IV line patent and intact, suprapubic catheter in place, on room air, on fall precaution obtained,bed is lock, both side rails up for safety, will continue to monitor and proceed with plan of care, call light within reach sam [email or web address]
--- NOTE | 2020-01-01 07:12 | NUR ---
HAND-OFF: Report given to MADAN Shaffer.
[2020-01-01 07:18] LABS: ALANINE AMINOTRANSFERASE 42 U/L (12-78); ALBUMIN 2.1 G/DL (3.4-5.0); ALBUMIN/GLOBULIN RATIO 0.5 (1.0-2.7); ALKALINE PHOSPHATASE 77 U/L (46-116); ANION GAP 7 mmol/L (5-15); ASPARTATE AMINO TRANSFERASE 35 U/L (15-37); BILIRUBIN,TOTAL 0.4 MG/DL (0.2-1.0); BLOOD UREA NITROGEN 18 mg/dL (7-18); CALCIUM 9.9 MG/DL (8.5-10.1); CARBON DIOXIDE 25 MMOL/L (21-32); CHLORIDE 108 MMOL/L (98-107); PHOSPHORUS 2.1 MG/DL (2.5-4.9); POTASSIUM 3.1 MMOL/L (3.5-5.1); SODIUM 140 MMOL/L (136-145)
[2020-01-01 07:25] LABS: CREATINE KINASE 45 U/L (26-308)
--- NOTE | 2020-01-01 07:50 | Infectious Diseases Prog Note ---
Assessment/Plan 59yo M with: UTI -u/a wbc 40/6-, nit +, leuk +2; ucx >100k ESBL e. 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 End date of all abx to be 01/05 -12/23 SP IV Vancomycin #6 -12/21 SP Cefepime #4, Flagyl #2 -12/18 SP Meropenem x1 -f/u cx -Monitor CBC/CMP, temperatures -wound cx -Uro and Gen sx f/u -wound care per surgical team D/w RN Thank you for consulting [facility]. Will continue to follow along with you. Subjective Allergies: Coded Allergies: CODEINE (Verified Allergy, Unknown, 02/05/10) AF NAD No new complaints Objective Last 24 Hour Vital Signs Date Time Temp Pulse Resp B/P (MAP) Pulse Ox O2 Delivery O2 Flow Rate FiO2 01/01/20 04:00 97.9 77 21 105/62 (76) 97 01/01/20 00:00 97.3 76 20 106/64 (78) 96 12/31/19 21:00 Room Air 12/31/19 20:00 98.2 87 20 140/74 (96) 98 12/31/19 16:00 97.0 92 20 105/68 (80) 94 12/31/19 14:39 92 18 95 Room Air 21 12/31/19 12:00 98.6 92 20 110/62 (78) 94 12/31/19 09:00 Room Air 12/31/19 08:00 97.3 87 18 114/69 (84) 97 Height (Feet): 5 Height (Inches): 6.00 Weight (Pounds): 132 Gen: NAD in bed HEENT: NCAT, EOMI, PERRL CV: RRR Pulm: CTAB on RA Abd: Soft, NTND Ext: No c/c/e : Necrotic penis with swollen base and open wound wo significant discharge or surrounding erythema Neuro: Awake Laboratory Tests Test 12/31/19 17:10 01/01/20 05:33 Random Gentamicin Level 2.4 ug/mL Sodium Level 140 MMOL/L (136-145) Potassium Level 3.1 MMOL/L (3.5-5.1) L Chloride Level 108 MMOL/L (98-107) H Carbon Dioxide Level 25 MMOL/L (21-32) Anion Gap 7 mmol/L (5-15) Blood Urea Nitrogen 18 mg/dL (7-18) Creatinine 1.0 MG/DL (0.55-1.30) Estimat Glomerular Filtration Rate > 60 mL/min (>60) Glucose Level 131 MG/DL (74-106) H Calcium Level 9.9 MG/DL (8.5-10.1) Phosphorus Level 2.1 MG/DL (2.5-4.9) L Magnesium Level 1.8 MG/DL (1.8-2.4) Total Bilirubin 0.4 MG/DL (0.2-1.0) Aspartate Amino Transf (AST/SGOT) 35 U/L (15-37) Alanine Aminotransferase (ALT/SGPT) 42 U/L (12-78) Alkaline Phosphatase 77 U/L (46-116) Total Creatine Kinase 45 U/L (26-308) Total Protein 6.7 G/DL (6.4-8.2) Albumin 2.1 G/DL (3.4-5.0) L Globulin 4.6 g/dL Albumin/Globulin Ratio 0.5 (1.0-2.7) L Current Medications Medications (Trade) Dose Ordered Sig/Virginie Route PRN Reason Start Time Stop Time Status Last Admin Dose Admin Acetaminophen (Tylenol) 650 mg Q4H PRN ORAL fever 12/19/19 19:00 01/18/20 18:59 01/01/20 04:32 Calcitonin [place] (Miacalcin) 1 sprays DAILY NASAL 12/29/19 10:00 03/28/20 09:59 12/31/19 08:29 Daptomycin 250 mg/ Sodium Chloride 55 ml @ 100 mls/hr Q24H IV 12/24/19 16:00 01/06/20 23:59 12/31/19 16:40 Dextrose (Dextrose 50%) 25 ml Q30M PRN IV Hypoglycemia 12/19/19 19:00 03/18/20 18:59 Dextrose (Dextrose 50%) 50 ml Q30M PRN IV Hypoglycemia 12/19/19 19:00 03/18/20 18:59 Dextrose/Sodium Chloride 1,000 ml @ 125 mls/hr Q8H IV 12/28/19 20:45 01/27/20 20:44 01/01/20 04:35 Folic Acid (Folate) 2 mg DAILY ORAL 12/29/19 13:00 01/28/20 12:59 12/31/19 08:29 Furosemide (Lasix) 20 mg EVERY 12 HOURS IV 12/31/19 21:00 01/28/20 21:59 12/31/19 21:16 Gentamicin Protocol (Gentamicin pharmacy to dose) 1 ea DAILY PRN MISC Per rx protocol 12/24/19 13:00 01/23/20 12:59 Gentamicin Sulfate 300 mg/ Sodium Chloride 117.5 ml @ 117.5 mls/ hr Q24H IVPB 01/01/20 04:00 01/08/20 03:59 01/01/20 04:19 Heparin Sodium (Porcine) (Heparin 5000 units/ml) 5,000 units EVERY 12 HOURS SUBQ 12/19/19 21:00 02/02/20 20:59 12/31/19 21:08 Meropenem 2 gm/ Sodium Chloride 100 ml @ 200 mls/hr Q8HR IVPB 12/26/19 14:00 01/06/20 23:59 01/01/20 05:28 Ondansetron HCl (Zofran) 4 mg Q6H PRN IVP Nausea & Vomiting 12/19/19 19:00 01/18/20 18:59 Patient Own Medication (Patient's Own Med) 1 ea DAILY ORAL 12/21/19 18:00 01/20/20 17:59 12/31/19 08:29 Phosphorus (Phospha 250 Neutral) 500 mg THREE TIMES A DAY ORAL 12/31/19 09:00 01/29/20 09:29 12/31/19 17:30 Polyethylene Glycol (Miralax) 17 gm DAILYPRN PRN ORAL Constipation 12/19/19 19:00 01/18/20 18:59 12/29/19 05:14 Potassium Chloride (K-Dur) 40 meq QID ORAL 12/31/19 09:00 03/28/20 12:59 12/31/19 21:08 Suellen Riojas M.D. Jan 01, 2020 07:50
[2020-01-01 08:00] VITALS: BP 112/73
[2020-01-01] MEDS: Phospha 250 Neutral tab ORAL SCH ×3 (08:53→17:15)
[2020-01-01] MEDS: SYMTUZA ORAL SCH (08:54)
[2020-01-01] MEDS: Heparin 5000 units/ml inj SUBQ SCH ×2 (09:03→21:45)
--- NOTE | 2020-01-01 09:59 | Hematology/Onc Progress Note ---
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 Leonard at [facility], per patient is his med onc --> dw 12/21 Dr. Leonard [facility] further f/u --> labs have been reviewed, hold off on tumor markers --> has been seen by Dr. Larsen here and recs noted debridement at some point --> 12/22 s/p debridement at bedside # Leukocytosis likely due to Penile abscess --> requires abx as per id vanc/flagyl/cefepime-->vanc/chelsea-->chelsea/dap/gent --> wbc 13-->14-->13--.12.4-->16-->16.6-->18 # HYpercalcemia --> Ca+ 14.6-->13.2 --> repeat as needed --> ivf, lasix, calcitonin per renal, pamidronate --> per renal # Anemia likely chronic disease v other cause --> hgb 12-->11->10 # Urinary retention with chronic suprapubic tube. --> per uro, surg care # Probable neurogenic bladder. # Urinary tract infection and colonization. # Hematuria. --> improved # Dvt ppx --> hep sq Appreciate consultation and dw RN Subjective Constitutional: Denies: no symptoms, chills, fever, malaise, weakness, other HEENT: Denies: no symptoms, eye pain, blurred vision, tearing, double vision, ear pain, ear discharge, nose pain, nose congestion, throat pain, throat swelling, mouth pain, mouth swelling, other Respiratory: Denies: no symptoms, cough, shortness of breath, SOB with excertion, SOB at rest, sputum, wheezing, other Gastrointestinal/Abdominal: Denies: no symptoms, abdomen distended, abdominal pain, black stools, tarry stools, blood in stool, constipated, diarrhea, difficulty swallowing, nausea, poor appetite, poor fluid intake, rectal bleeding, vomiting, other Genitourinary: Denies: no symptoms, burning, discharge, frequency, flank pain, hematuria, incontinence, pain, urgency, other Neurologic/Psychiatric: Denies: no symptoms, anxiety, depressed, emotional problems, headache, numbness, paresthesia, pre-existing deficit, seizure, tingling, tremors, weakness, other Endocrine: Denies: no symptoms, excessive sweating, flushing, intolerance to cold, intolerance to heat, increased hunger, increased thirst, increased urine, unexplained weight gain, unexplained weight loss, other Hematologic/Lymphatic: Denies: no symptoms, anemia, easy bleeding, easy bruising, adenopathy, other Allergies: Coded Allergies: CODEINE (Verified Allergy, Unknown, 02/05/10) Subjective 12/21 is on abx vanc/flagyl, cefepime, on hep, suprapub catheter functional 12/22 no major events, debridement at some pt, dw Dr. Leonard yesterday [facility] 12/23 underwent bedside debridement yesterday, feeling better, dressing in place 12/24 meds reviewed, meds noted, no bleeding, dw rn 12/26 on chelsea, dapto, gent, no bleeding, meds noted, labs reviewed 12/27 wound care, dressing changes, labs reviewed, no bleeding 12/28 labs pending, meds reviewed, no bleeding or night sweats 12/29 labs reviewed, meds ntoed, with elev wbc, on abx 12/30 labs reviewed, wbc is elevated, abx, does not want a new iv line 12/31 labs reviewed, meds noted, Ca++ high, no night sweats or bleeding Objective Objective Current Medications Medications (Trade) Dose Ordered Sig/Virginie Route PRN Reason Start Time Stop Time Status Last Admin Dose Admin Acetaminophen (Tylenol) 650 mg Q4H PRN ORAL fever 12/19/19 19:00 01/18/20 18:59 01/01/20 04:32 Calcitonin [place] (Miacalcin) 1 sprays DAILY NASAL 12/29/19 10:00 03/28/20 09:59 01/01/20 08:54 Daptomycin 250 mg/ Sodium Chloride 55 ml @ 100 mls/hr Q24H IV 12/24/19 16:00 01/06/20 23:59 12/31/19 16:40 Dextrose (Dextrose 50%) 25 ml Q30M PRN IV Hypoglycemia 12/19/19 19:00 03/18/20 18:59 Dextrose (Dextrose 50%) 50 ml Q30M PRN IV Hypoglycemia 12/19/19 19:00 03/18/20 18:59 Dextrose/Sodium Chloride 1,000 ml @ 50 mls/hr Q20H IV 12/28/19 20:45 01/27/20 20:44 01/01/20 04:35 Folic Acid (Folate) 2 mg DAILY ORAL 12/29/19 13:00 01/28/20 12:59 12/31/19 08:29 Gentamicin Protocol (Gentamicin pharmacy to dose) 1 ea DAILY PRN MISC Per rx protocol 12/24/19 13:00 01/23/20 12:59 Gentamicin Sulfate 300 mg/ Sodium Chloride 117.5 ml @ 117.5 mls/ hr Q24H IVPB 01/01/20 04:00 01/08/20 03:59 01/01/20 04:19 Heparin Sodium (Porcine) (Heparin 5000 units/ml) 5,000 units EVERY 12 HOURS SUBQ 12/19/19 21:00 02/02/20 20:59 01/01/20 09:03 Meropenem 2 gm/ Sodium Chloride 100 ml @ 200 mls/hr Q8HR IVPB 12/26/19 14:00 01/06/20 23:59 01/01/20 05:28 Ondansetron HCl (Zofran) 4 mg Q6H PRN IVP Nausea & Vomiting 12/19/19 19:00 01/18/20 18:59 Patient Own Medication (Patient's Own Med) 1 ea DAILY ORAL 12/21/19 18:00 01/20/20 17:59 01/01/20 08:54 Phosphorus (Phospha 250 Neutral) 500 mg THREE TIMES A DAY ORAL 12/31/19 09:00 01/29/20 09:29 01/01/20 08:53 Polyethylene Glycol (Miralax) 17 gm DAILYPRN PRN ORAL Constipation 12/19/19 19:00 01/18/20 18:59 12/29/19 05:14 Potassium Phosphate 250 ml @ 62.5 mls/hr Q4H IVPB 01/01/20 10:00 01/01/20 17:59 Potassium Chloride (K-Dur) 40 meq DAILY ORAL 01/01/20 09:00 03/28/20 12:59 01/01/20 08:54 Last 24 Hour Vital Signs Date Time Temp Pulse Resp B/P (MAP) Pulse Ox O2 Delivery O2 Flow Rate FiO2 01/01/20 08:00 Room Air 01/01/20 08:00 97.7 71 16 112/73 (86) 97 01/01/20 04:00 97.9 77 21 105/62 (76) 97 01/01/20 00:00 97.3 76 20 106/64 (78) 96 12/31/19 21:00 Room Air 12/31/19 20:00 98.2 87 20 140/74 (96) 98 12/31/19 16:00 97.0 92 20 105/68 (80) 94 12/31/19 14:39 92 18 95 Room Air 21 12/31/19 12:00 98.6 92 20 110/62 (78) 94 12/31/19 09:00 Room Air 12/31/19 08:00 97.3 87 18 114/69 (84) 97 12/31/19 04:00 98.3 77 18 117/68 (84) 95 12/31/19 00:00 98.0 91 18 116/75 (89) 95 12/30/19 21:00 Room Air 12/30/19 20:00 98.1 88 18 136/77 (96) 98 12/30/19 19:03 80 18 94 Room Air 21 12/30/19 16:00 96.8 76 19 105/62 (76) 95 12/30/19 12:00 97.7 86 21 111/69 (83) 97 Intake and Output 12/31/19 01/01/20 19:00 07:00 Intake Total 200 ml 1025 ml Output Total 2000 ml 1500 ml Balance -1800 ml -475 ml Intake Oral 200 ml 300 ml IV Total 725 ml Output Urine Total 2000 ml 1500 ml Labs Test 12/29/19 14:30 12/30/19 03:10 12/31/19 05:20 12/31/19 17:10 Gentamicin Level Trough 1.0 ug/mL (0.3-2.0) White Blood Count 16.6 K/UL (4.8-10.8) 17.7 K/UL (4.8-10.8) Red Blood Count 3.52 M/UL (4.70-6.10) 3.00 M/UL (4.70-6.10) Hemoglobin 11.2 G/DL (14.2-18.0) 10.9 G/DL (14.2-18.0) Hematocrit 33.9 % (42.0-52.0) 27.7 % (42.0-52.0) Mean Corpuscular Volume 96 FL (80-99) 92 FL (80-99) Mean Corpuscular Hemoglobin 31.8 PG (27.0-31.0) 36.5 PG (27.0-31.0) Mean Corpuscular Hemoglobin Concent 33.0 G/DL (32.0-36.0) 39.4 G/DL (32.0-36.0) Red Cell Distribution Width 16.9 % (11.6-14.8) 18.9 % (11.6-14.8) Platelet Count 334 K/UL (150-450) 342 K/UL (150-450) Mean Platelet Volume 5.8 FL (6.5-10.1) 5.3 FL (6.5-10.1) Neutrophils (%) (Auto) 81.5 % (45.0-75.0) 82.6 % (45.0-75.0) Lymphocytes (%) (Auto) 10.2 % (20.0-45.0) 10.9 % (20.0-45.0) Monocytes (%) (Auto) 7.3 % (1.0-10.0) 5.4 % (1.0-10.0) Eosinophils (%) (Auto) 0.6 % (0.0-3.0) 0.8 % (0.0-3.0) Basophils (%) (Auto) 0.3 % (0.0-2.0) 0.3 % (0.0-2.0) Sodium Level 141 MMOL/L (136-145) 142 MMOL/L (136-145) Potassium Level 3.1 MMOL/L (3.5-5.1) 3.1 MMOL/L (3.5-5.1) Chloride Level 107 MMOL/L (98-107) 107 MMOL/L (98-107) Carbon Dioxide Level 31 MMOL/L (21-32) 28 MMOL/L (21-32) Anion Gap 3 mmol/L (5-15) 7 mmol/L (5-15) Blood Urea Nitrogen 22 mg/dL (7-18) 19 mg/dL (7-18) Creatinine 1.2 MG/DL (0.55-1.30) 1.0 MG/DL (0.55-1.30) Estimat Glomerular Filtration Rate > 60 mL/min (>60) > 60 mL/min (>60) Glucose Level 119 MG/DL (74-106) 105 MG/DL (74-106) Uric Acid 6.1 MG/DL (2.6-7.2) 5.2 MG/DL (2.6-7.2) Calcium Level 13.2 MG/DL (8.5-10.1) 11.1 MG/DL (8.5-10.1) Phosphorus Level 1.7 MG/DL (2.5-4.9) 1.8 MG/DL (2.5-4.9) Magnesium Level 1.9 MG/DL (1.8-2.4) 1.8 MG/DL (1.8-2.4) Total Bilirubin 0.3 MG/DL (0.2-1.0) 0.4 MG/DL (0.2-1.0) Aspartate Amino Transf (AST/SGOT) 20 U/L (15-37) 29 U/L (15-37) Alanine Aminotransferase (ALT/SGPT) 19 U/L (12-78) 28 U/L (12-78) Alkaline Phosphatase 74 U/L (46-116) 78 U/L (46-116) C-Reactive Protein, Quantitative 21.0 mg/dL (0.00-0.90) Pro-B-Type Natriuretic Peptide 518 pg/mL (0-125) Total Protein 7.0 G/DL (6.4-8.2) 7.1 G/DL (6.4-8.2) Albumin 2.3 G/DL (3.4-5.0) 2.3 G/DL (3.4-5.0) Globulin 4.7 g/dL 4.8 g/dL Albumin/Globulin Ratio 0.5 (1.0-2.7) 0.5 (1.0-2.7) Random Gentamicin Level 3.6 ug/mL 2.4 ug/mL Test 01/01/20 05:33 Sodium Level 140 MMOL/L (136-145) Potassium Level 3.1 MMOL/L (3.5-5.1) Chloride Level 108 MMOL/L (98-107) Carbon Dioxide Level 25 MMOL/L (21-32) Anion Gap 7 mmol/L (5-15) Blood Urea Nitrogen 18 mg/dL (7-18) Creatinine 1.0 MG/DL (0.55-1.30) Estimat Glomerular Filtration Rate > 60 mL/min (>60) Glucose Level 131 MG/DL (74-106) Calcium Level 9.9 MG/DL (8.5-10.1) Phosphorus Level 2.1 MG/DL (2.5-4.9) Magnesium Level 1.8 MG/DL (1.8-2.4) Total Bilirubin 0.4 MG/DL (0.2-1.0) Aspartate Amino Transf (AST/SGOT) 35 U/L (15-37) Alanine Aminotransferase (ALT/SGPT) 42 U/L (12-78) Alkaline Phosphatase 77 U/L (46-116) Total Creatine Kinase 45 U/L (26-308) Total Protein 6.7 G/DL (6.4-8.2) Albumin 2.1 G/DL (3.4-5.0) Globulin 4.6 g/dL Albumin/Globulin Ratio 0.5 (1.0-2.7) Height (Feet): 5 Height (Inches): 6.00 Weight (Pounds): 132 Objective Physical Exam Sp02 EP Interpretation: reviewed, normal General: no apparent distress, Chronically Ill Heent: normocephalic, atraumatic Respiratory: lungs clear, normal breath sounds Cardiovascular: normal peripheral pulses, regular rate Gastrointestinal: non tender, soft, non-distended, no guarding Genitourinary: other - Large area of necrosis noted in the genital region with purulent discharge, ++suprapub catheter Neurologic: alert, oriented x3 Skin: normal color, warm/dry Mandeep Horta MD Jan 01, 2020 09:59
[2020-01-01] MEDS: Potassium Phosphate 15mm/250ml 250 ML IVPB SCH ×2 (10:03→13:56)
--- NOTE | 2020-01-01 10:05 | NUR ---
RD ASSESSMENT & RECOMMENDATIONS SEE CARE ACTIVITY FOR COMPLETE ASSESSMENT DAILY ESTIMATED NEEDS: Needs based on Cancer, HIV/ 60kg 25-30 kcals/kg 0181-9825 total kcals 1-1.5 g protein/kg 60-90 g total protein 25-30 mL/kg 2595-7412 total fluid mLs NUTRITION DIAGNOSIS: Increased kcal/prot needs R/T catabolic dx, wound healing as evidenced by h/o urethral cancer, s/p chemotherapy, radiation, +HIV, admitted w/ penile wound necrosis. (CURRENT DIET:Regular) PO DIET RECOMMENDATIONS--->>> REGULAR/ texture as tolerated + Ensure Enlive TID w/ meals ADDITIONAL RECOMMENDATIONS: * Calibrated bedscale wt (60kg-> 56kg) * Monitor for any side effects from chemo/radiation -> denies any side effects at this time. * Monitor PO intake: now improved/ continue ensure enlive TID * Bowel regimen-> Last BM noted 12/20, 12/21 * Monitor lytes, replete as needed (low K, low phos) * 1:1 feeds all meals
[2020-01-01 12:19] VITALS: BP 109/67
--- NOTE | 2020-01-01 13:08 | Internal Med Progress Note ---
Subjective Physician Name Ron Enriquez Attending Physician Ron Enriquez MD Current Medications Medications (Trade) Dose Ordered Sig/Virginie Route PRN Reason Start Time Stop Time Status Last Admin Dose Admin Acetaminophen (Tylenol) 650 mg Q4H PRN ORAL fever 12/19/19 19:00 01/18/20 18:59 01/01/20 04:32 Calcitonin [place] (Miacalcin) 1 sprays DAILY NASAL 12/29/19 10:00 03/28/20 09:59 01/01/20 08:54 Daptomycin 250 mg/ Sodium Chloride 55 ml @ 100 mls/hr Q24H IV 12/24/19 16:00 01/06/20 23:59 12/31/19 16:40 Dextrose (Dextrose 50%) 25 ml Q30M PRN IV Hypoglycemia 12/19/19 19:00 03/18/20 18:59 Dextrose (Dextrose 50%) 50 ml Q30M PRN IV Hypoglycemia 12/19/19 19:00 03/18/20 18:59 Dextrose/Sodium Chloride 1,000 ml @ 50 mls/hr Q20H IV 12/28/19 20:45 01/27/20 20:44 01/01/20 04:35 Folic Acid (Folate) 2 mg DAILY ORAL 12/29/19 13:00 01/28/20 12:59 01/01/20 10:44 Gentamicin Protocol (Gentamicin pharmacy to dose) 1 ea DAILY PRN MISC Per rx protocol 12/24/19 13:00 01/23/20 12:59 Gentamicin Sulfate 300 mg/ Sodium Chloride 117.5 ml @ 117.5 mls/ hr Q24H IVPB 01/01/20 04:00 01/08/20 03:59 01/01/20 04:19 Heparin Sodium (Porcine) (Heparin 5000 units/ml) 5,000 units EVERY 12 HOURS SUBQ 12/19/19 21:00 02/02/20 20:59 01/01/20 09:03 Meropenem 2 gm/ Sodium Chloride 100 ml @ 200 mls/hr Q8HR IVPB 12/26/19 14:00 01/06/20 23:59 01/01/20 05:28 Ondansetron HCl (Zofran) 4 mg Q6H PRN IVP Nausea & Vomiting 12/19/19 19:00 01/18/20 18:59 Patient Own Medication (Patient's Own Med) 1 ea DAILY ORAL 12/21/19 18:00 01/20/20 17:59 01/01/20 08:54 Phosphorus (Phospha 250 Neutral) 500 mg THREE TIMES A DAY ORAL 12/31/19 09:00 01/29/20 09:29 01/01/20 08:53 Polyethylene Glycol (Miralax) 17 gm DAILYPRN PRN ORAL Constipation 12/19/19 19:00 01/18/20 18:59 12/29/19 05:14 Potassium Phosphate 250 ml @ 62.5 mls/hr Q4H IVPB 01/01/20 10:00 01/01/20 17:59 01/01/20 10:03 Potassium Chloride (K-Dur) 40 meq DAILY ORAL 01/01/20 09:00 03/28/20 12:59 01/01/20 08:54 Allergies: Coded Allergies: CODEINE (Verified Allergy, Unknown, 02/05/10) Subjective awake, alert, responsive, NAD, K: 3.1. Objective Last Vital Signs Date Time Temp Pulse Resp B/P (MAP) Pulse Ox O2 Delivery O2 Flow Rate FiO2 01/01/20 12:19 99.3 71 14 109/67 (81) 97 01/01/20 08:00 Room Air 12/31/19 14:39 21 Laboratory Tests Test 12/31/19 17:10 01/01/20 05:33 Random Gentamicin Level 2.4 ug/mL Sodium Level 140 MMOL/L (136-145) Potassium Level 3.1 MMOL/L (3.5-5.1) L Chloride Level 108 MMOL/L (98-107) H Carbon Dioxide Level 25 MMOL/L (21-32) Anion Gap 7 mmol/L (5-15) Blood Urea Nitrogen 18 mg/dL (7-18) Creatinine 1.0 MG/DL (0.55-1.30) Estimat Glomerular Filtration Rate > 60 mL/min (>60) Glucose Level 131 MG/DL (74-106) H Calcium Level 9.9 MG/DL (8.5-10.1) Phosphorus Level 2.1 MG/DL (2.5-4.9) L Magnesium Level 1.8 MG/DL (1.8-2.4) Total Bilirubin 0.4 MG/DL (0.2-1.0) Aspartate Amino Transf (AST/SGOT) 35 U/L (15-37) Alanine Aminotransferase (ALT/SGPT) 42 U/L (12-78) Alkaline Phosphatase 77 U/L (46-116) Total Creatine Kinase 45 U/L (26-308) Total Protein 6.7 G/DL (6.4-8.2) Albumin 2.1 G/DL (3.4-5.0) L Globulin 4.6 g/dL Albumin/Globulin Ratio 0.5 (1.0-2.7) L Intake and Output 12/31/19 01/01/20 19:00 07:00 Intake Total 200 ml 1025 ml Output Total 2000 ml 1500 ml Balance -1800 ml -475 ml Intake Oral 200 ml 300 ml IV Total 725 ml Output Urine Total 2000 ml 1500 ml Objective GENERAL: awake, alert, responsive, chronic ill appearance, in no apparent distress. HEENT: Eyes, pupils equal and responsive to light and accommodation. Extraocular movements are intact. NECK: Supple without lymphadenopathy. CHEST: Lungs are clear to auscultation bilaterally without wheezes or rales. CARDIOVASCULAR: Regular rate. S1, S2 are normal without murmurs or gallops. ABDOMEN: Soft, nontender, and nondistended. Positive bowel sounds. EXTREMITIES: Negative for clubbing, cyanosis, or edema. RECTAL AND GENITAL: Large fungating mass over the penile and scrotal region. suprapubic cath intact. NEUROLOGICAL: Cranial nerves II through XII are grossly intact without focal deficits. Motor strength is 5/5 bilaterally intact. Assessment/Plan Assessment/Plan ASSESSMENT: This is a 59-year-old male with: 1. Recurrent Urinary tract infection=E. Coli ESBL, Enterococci, Pseudomonas 2. Penile abscess. 3. HIV. 4. Urethral cancer. 5. Sepsis TREATMENT: 1. Urinary tract infection/penile abscess. Antibiotics=Meropenem, Daptomycin, Gentamicin. Infectious Disease consulltation = Dr. Rider. 2. HIV. Continue Symtuza as above. 3. Penile/urethral cancer. Oncology consultation = Dr. Mandeep Horta. Urology consultation = Dr. Chas Larsen. Code status: Full code DVT prophylaxis: Heparin SQ. Monitor labs and cultures Daptomycin #9 / 14 Meropenem #11 / 16 for ESBL Gentamicin #9 / 14 as PsA intermediate to meropenem If no more debridement is planned, would continue IV abx for a total of 14 day course then stop and continue aggressive wound care. End date of all abx to be 01/05 Ron Enriquez MD Jan 01, 2020 13:08
--- NOTE | 2020-01-01 13:35 | Nephrology Progress Note ---
Assessment/Plan Problem List: (1) Hypercalcemia (2) Urethral cancer (3) Penile abscess (4) Encephalopathy Plan December 31: Serum calcium within normal limit of range, but corrected for low albumin is still elevated. Will decrease hydration. Stop IV Lasix. Abnormal electrolytes addressed. Continue to monitor chemistries and electrolytes December 30: Serum calcium continues to decline. Continue hydrate. Down on IV Lasix to every 12 hours. Continue to monitor calcium phosphorus and magnesium. Potassium and phosphorus supplements given. December 29: Serum calcium remains elevated however is going down on current treatment plan. Abnormal electrolytes addressed. Continue to monitor serum calcium. December 28: IV hydration 125 cc an hour Lasix 20 mg every 8 hours Nasal calcitonin 1 dose of pamidronate 90 mg IV piggyback Waiting for PTH and PTH related protein results Replace low folic acid Continue to monitor electrolytes and chemistries Per orders Subjective ROS Limited/Unobtainable: No Constitutional: Reports: malaise Objective Objective Last 24 Hour Vital Signs Date Time Temp Pulse Resp B/P (MAP) Pulse Ox O2 Delivery O2 Flow Rate FiO2 01/01/20 12:19 99.3 71 14 109/67 (81) 97 01/01/20 08:00 Room Air 01/01/20 08:00 97.7 71 16 112/73 (86) 97 01/01/20 04:00 97.9 77 21 105/62 (76) 97 01/01/20 00:00 97.3 76 20 106/64 (78) 96 12/31/19 21:00 Room Air 12/31/19 20:00 98.2 87 20 140/74 (96) 98 12/31/19 16:00 97.0 92 20 105/68 (80) 94 12/31/19 14:39 92 18 95 Room Air 21 Intake and Output 12/31/19 01/01/20 19:00 07:00 Intake Total 200 ml 1025 ml Output Total 2000 ml 1500 ml Balance -1800 ml -475 ml Intake Oral 200 ml 300 ml IV Total 725 ml Output Urine Total 2000 ml 1500 ml Current Medications Medications (Trade) Dose Ordered Sig/Virginie Route PRN Reason Start Time Stop Time Status Last Admin Dose Admin Acetaminophen (Tylenol) 650 mg Q4H PRN ORAL fever 12/19/19 19:00 01/18/20 18:59 01/01/20 13:29 Calcitonin [place] (Miacalcin) 1 sprays DAILY NASAL 12/29/19 10:00 03/28/20 09:59 01/01/20 08:54 Daptomycin 250 mg/ Sodium Chloride 55 ml @ 100 mls/hr Q24H IV 12/24/19 16:00 01/06/20 23:59 12/31/19 16:40 Dextrose (Dextrose 50%) 25 ml Q30M PRN IV Hypoglycemia 12/19/19 19:00 03/18/20 18:59 Dextrose (Dextrose 50%) 50 ml Q30M PRN IV Hypoglycemia 12/19/19 19:00 03/18/20 18:59 Dextrose/Sodium Chloride 1,000 ml @ 50 mls/hr Q20H IV 12/28/19 20:45 01/27/20 20:44 01/01/20 04:35 Folic Acid (Folate) 2 mg DAILY ORAL 12/29/19 13:00 01/28/20 12:59 01/01/20 10:44 Gentamicin Protocol (Gentamicin pharmacy to dose) 1 ea DAILY PRN MISC Per rx protocol 12/24/19 13:00 01/23/20 12:59 Gentamicin Sulfate 300 mg/ Sodium Chloride 117.5 ml @ 117.5 mls/ hr Q24H IVPB 01/01/20 04:00 01/08/20 03:59 01/01/20 04:19 Heparin Sodium (Porcine) (Heparin 5000 units/ml) 5,000 units EVERY 12 HOURS SUBQ 12/19/19 21:00 02/02/20 20:59 01/01/20 09:03 Meropenem 2 gm/ Sodium Chloride 100 ml @ 200 mls/hr Q8HR IVPB 12/26/19 14:00 01/06/20 23:59 01/01/20 05:28 Ondansetron HCl (Zofran) 4 mg Q6H PRN IVP Nausea & Vomiting 12/19/19 19:00 01/18/20 18:59 Patient Own Medication (Patient's Own Med) 1 ea DAILY ORAL 12/21/19 18:00 01/20/20 17:59 01/01/20 08:54 Phosphorus (Phospha 250 Neutral) 500 mg THREE TIMES A DAY ORAL 12/31/19 09:00 01/29/20 09:29 01/01/20 13:11 Polyethylene Glycol (Miralax) 17 gm DAILYPRN PRN ORAL Constipation 12/19/19 19:00 01/18/20 18:59 12/29/19 05:14 Potassium Phosphate 250 ml @ 62.5 mls/hr Q4H IVPB 01/01/20 10:00 01/01/20 17:59 01/01/20 10:03 Potassium Chloride (K-Dur) 40 meq DAILY ORAL 01/01/20 09:00 03/28/20 12:59 01/01/20 08:54 Laboratory Tests 12/31/19 17:10: Random Gentamicin Level 2.4 01/01/20 05:33: Sodium Level 140, Potassium Level 3.1L, Chloride Level 108H, Carbon Dioxide Level 25, Anion Gap 7, Blood Urea Nitrogen 18, Creatinine 1.0, Estimat Glomerular Filtration Rate > 60, Glucose Level 131H, Calcium Level 9.9, Phosphorus Level 2.1L, Magnesium Level 1.8, Total Bilirubin 0.4, Aspartate Amino Transf (AST/SGOT) 35, Alanine Aminotransferase (ALT/SGPT) 42, Alkaline Phosphatase 77, Total Creatine Kinase 45, Total Protein 6.7, Albumin 2.1L, Globulin 4.6, Albumin/Globulin Ratio 0.5L Height (Feet): 5 Height (Inches): 6.00 Weight (Pounds): 132 General Appearance: no apparent distress Cardiovascular: normal rate Respiratory/Chest: lungs clear Abdomen: soft Objective No change Keaton Doran MD Jan 01, 2020 13:35
--- NOTE | 2020-01-01 14:49 | NUR ---
CASE MANAGEMENT:REVIEW 01/01/20 SI: SEPSIS. ESBL UTI. PENILE ABSCESS HIV. URETHRAL CANCER 97.7 71 16 112/73 97% ON RA K-3.1 IS: IV K PHOS Q4HRS X2 K-DUR PO QD IV GENTAMICIN Q24 IV MEROPENEM Q8HRS IV DAPTOMYCIN Q24 IVF@50/HR HEPARIN SQ Q12 : MED/SURG STATUS PLAN: ANTIBIOTICS UNTIL 01/06/20
--- NOTE | 2020-01-01 14:58 | NUR ---
nurse notes Notified lab regarding the results of PTH related protein in the EMR , dental laboratory technology teacher said they will try to get result and will notify me sam montejo
[2020-01-01] MEDS: HYDROcodone/Acetamin 10/325 tab ORAL PRN (16:18)
[2020-01-01] MEDS: DAPTOmycin 250 MG in NS 55 ML IV SCH (16:21)
[2020-01-01 16:31] VITALS: BP 110/69
--- NOTE | 2020-01-01 16:38 | Surgery Progress Note ---
Surgery Progress Note Subjective Additional Comments states doing well but a bit depressed no n/v pain okay wound going stable Objective Last 24 Hour Vital Signs Date Time Temp Pulse Resp B/P (MAP) Pulse Ox O2 Delivery O2 Flow Rate FiO2 01/01/20 16:31 98.0 80 18 110/69 (83) 97 01/01/20 12:19 99.3 71 14 109/67 (81) 97 01/01/20 08:00 Room Air 01/01/20 08:00 97.7 71 16 112/73 (86) 97 01/01/20 04:00 97.9 77 21 105/62 (76) 97 01/01/20 00:00 97.3 76 20 106/64 (78) 96 12/31/19 21:00 Room Air 12/31/19 20:00 98.2 87 20 140/74 (96) 98 I&O Intake and Output 12/31/19 01/01/20 19:00 07:00 Intake Total 200 ml 1025 ml Output Total 2000 ml 1500 ml Balance -1800 ml -475 ml Intake Oral 200 ml 300 ml IV Total 725 ml Output Urine Total 2000 ml 1500 ml Dressing: saturated Cardiovascular: RSR Respiratory: decreased breath sounds Abdomen: non-tender, present bowel sounds Extremities: no tenderness, no cyanosis Laboratory Tests Test 12/31/19 17:10 01/01/20 05:33 Random Gentamicin Level 2.4 ug/mL Sodium Level 140 MMOL/L (136-145) Potassium Level 3.1 MMOL/L (3.5-5.1) L Chloride Level 108 MMOL/L (98-107) H Carbon Dioxide Level 25 MMOL/L (21-32) Anion Gap 7 mmol/L (5-15) Blood Urea Nitrogen 18 mg/dL (7-18) Creatinine 1.0 MG/DL (0.55-1.30) Estimat Glomerular Filtration Rate > 60 mL/min (>60) Glucose Level 131 MG/DL (74-106) H Calcium Level 9.9 MG/DL (8.5-10.1) Phosphorus Level 2.1 MG/DL (2.5-4.9) L Magnesium Level 1.8 MG/DL (1.8-2.4) Total Bilirubin 0.4 MG/DL (0.2-1.0) Aspartate Amino Transf (AST/SGOT) 35 U/L (15-37) Alanine Aminotransferase (ALT/SGPT) 42 U/L (12-78) Alkaline Phosphatase 77 U/L (46-116) Total Creatine Kinase 45 U/L (26-308) Total Protein 6.7 G/DL (6.4-8.2) Albumin 2.1 G/DL (3.4-5.0) L Globulin 4.6 g/dL Albumin/Globulin Ratio 0.5 (1.0-2.7) L Plan Problems: (1) Penile abscess Assessment & Plan: 61-year-old male with known urethral cancer status post chemoradiation presented with worsening wound necrosis and potential infection of the site. Patient seen prior penis necrosis falling off now remaining soft tissue in the malignancy region also with necrotic nonviable tissue identified. Drainage is serosanguineous at times sometimes serious and does not seem significant purulent. The cellulitis is minimal. Patient's labs noted. Given patient's history condition immunocompromise status recommend IV antibiotics. I discussed the patient and considerations for debriding some of the nonviable tissue though this will not in any way improve his cancer stated could help with local wound care. Patient expressed understanding we will continue to follow with local care and provide as necessary. No drainage of abscess identified at this time we will monitor thank you f/u with primary onc as per heme labs noted on rx wounds and slough/necrotic tissue debridement at bedside penis is fully necrotic and hanging off. will discuss consideration of operative debridement including penis. not recommended at bedside given likely bleeding with debridement. does not want further debridement at this time states feels much better wound less foul odor after last clean ing d/c planning (2) Urethral cancer (3) Abscess (4) Sepsis (5) Catheter-associated urinary tract infection Romain Li Jan 01, 2020 16:38
--- NOTE | 2020-01-01 19:08 | Urology Progress Note ---
Assessment/Plan Assessment/Plan: 1. History of urethral cancer, status post chemo and immunotherapy and radiation with previous debridement. 2. Urinary retention and a chronic suprapubic tube. 3. Probable neurogenic bladder. 4. UTI and colonization. 5. Hematuria. 6. Proteinuria. 7. Mild acute kidney injury. monitor clinically maintain SPT, last exchanged 12/25 hand irrigated and do PRN abx as ordered local wound care debridement PRN Subjective Allergies: Coded Allergies: CODEINE (Verified Allergy, Unknown, 02/05/10) Subjective all noted, more confused new SPT draining ok Objective Last 24 Hour Vital Signs Date Time Temp Pulse Resp B/P (MAP) Pulse Ox O2 Delivery O2 Flow Rate FiO2 01/01/20 16:31 98.0 80 18 110/69 (83) 97 01/01/20 12:19 99.3 71 14 109/67 (81) 97 01/01/20 08:00 Room Air 01/01/20 08:00 97.7 71 16 112/73 (86) 97 01/01/20 04:00 97.9 77 21 105/62 (76) 97 01/01/20 00:00 97.3 76 20 106/64 (78) 96 12/31/19 21:00 Room Air 12/31/19 20:00 98.2 87 20 140/74 (96) 98 Intake and Output 12/31/19 01/01/20 19:00 07:00 Intake Total 200 ml 1025 ml Output Total 2000 ml 1500 ml Balance -1800 ml -475 ml Intake Oral 200 ml 300 ml IV Total 725 ml Output Urine Total 2000 ml 1500 ml Microbiology Date/Time Source Procedure Growth Status 12/28/19 21:30 Urine,Clean Catch Urine Culture - Final NO GROWTH AFTER 48 HOURS Complete 12/21/19 16:45 Penis Gram Stain - Final Complete 12/21/19 16:45 Wound Culture - Final Pseudomonas Aeruginosa Escherichia Coli - Esbl Enterococcus Gallinarum Complete 12/20/19 10:20 Rectal Mucosa - Final NO CARBAPENEM-RESISTANT ENTEROBACTERI... Complete 12/19/19 16:25 Blood Blood Culture - Final NO GROWTH AFTER 5 DAYS Complete Current Medications Medications (Trade) Dose Ordered Sig/Virginie Route PRN Reason Start Time Stop Time Status Last Admin Dose Admin Acetaminophen (Tylenol) 650 mg Q4H PRN ORAL fever 12/19/19 19:00 01/18/20 18:59 01/01/20 13:29 Acetaminophen/ Hydrocodone Bitart ([place] 10/325) 1 tab Q4H PRN ORAL Moderate Pain (Pain Scale 4-6) 01/01/20 15:15 01/08/20 15:14 Acetaminophen/ Hydrocodone Bitart ([place] 10/325) 2 tab Q4H PRN ORAL Severe Pain (Pain Scale 7-10) 01/01/20 15:15 01/08/20 15:14 01/01/20 16:18 Calcitonin [place] (Miacalcin) 1 sprays DAILY NASAL 12/29/19 10:00 03/28/20 09:59 01/01/20 08:54 Daptomycin 250 mg/ Sodium Chloride 55 ml @ 100 mls/hr Q24H IV 12/24/19 16:00 01/06/20 23:59 01/01/20 16:21 Dextrose (Dextrose 50%) 25 ml Q30M PRN IV Hypoglycemia 12/19/19 19:00 03/18/20 18:59 Dextrose (Dextrose 50%) 50 ml Q30M PRN IV Hypoglycemia 12/19/19 19:00 03/18/20 18:59 Dextrose/Sodium Chloride 1,000 ml @ 50 mls/hr Q20H IV 12/28/19 20:45 01/27/20 20:44 01/01/20 13:37 Folic Acid (Folate) 2 mg DAILY ORAL 12/29/19 13:00 01/28/20 12:59 01/01/20 10:44 Gentamicin Protocol (Gentamicin pharmacy to dose) 1 ea DAILY PRN MISC Per rx protocol 12/24/19 13:00 01/23/20 12:59 Gentamicin Sulfate 300 mg/ Sodium Chloride 117.5 ml @ 117.5 mls/ hr Q24H IVPB 01/01/20 04:00 01/08/20 03:59 01/01/20 04:19 Heparin Sodium (Porcine) (Heparin 5000 units/ml) 5,000 units EVERY 12 HOURS SUBQ 12/19/19 21:00 02/02/20 20:59 01/01/20 09:03 Meropenem 2 gm/ Sodium Chloride 100 ml @ 200 mls/hr Q8HR IVPB 12/26/19 14:00 01/06/20 23:59 01/01/20 13:38 Ondansetron HCl (Zofran) 4 mg Q6H PRN IVP Nausea & Vomiting 12/19/19 19:00 01/18/20 18:59 Patient Own Medication (Patient's Own Med) 1 ea DAILY ORAL 12/21/19 18:00 01/20/20 17:59 01/01/20 08:54 Phosphorus (Phospha 250 Neutral) 500 mg THREE TIMES A DAY ORAL 12/31/19 09:00 01/29/20 09:29 01/01/20 17:15 Polyethylene Glycol (Miralax) 17 gm DAILYPRN PRN ORAL Constipation 12/19/19 19:00 01/18/20 18:59 12/29/19 05:14 Potassium Chloride (K-Dur) 40 meq DAILY ORAL 01/01/20 09:00 03/28/20 12:59 01/01/20 08:54 Laboratory Tests 01/01/20 05:33: Sodium Level 140, Potassium Level 3.1L, Chloride Level 108H, Carbon Dioxide Level 25, Anion Gap 7, Blood Urea Nitrogen 18, Creatinine 1.0, Estimat Glomerular Filtration Rate > 60, Glucose Level 131H, Calcium Level 9.9, Phosphorus Level 2.1L, Magnesium Level 1.8, Total Bilirubin 0.4, Aspartate Amino Transf (AST/SGOT) 35, Alanine Aminotransferase (ALT/SGPT) 42, Alkaline Phosphatase 77, Total Creatine Kinase 45, Total Protein 6.7, Albumin 2.1L, Globulin 4.6, Albumin/Globulin Ratio 0.5L Height (Feet): 5 Height (Inches): 6.00 Weight (Pounds): 132 Objective exam stable granulation tissue Chas Larsen MD Jan 01, 2020 19:07
--- NOTE | 2020-01-01 19:27 | NUR ---
nurse notes PTH result will be available on saturday per lab sam montejo
--- NOTE | 2020-01-01 19:36 | NUR ---
NURSE HAND-OFF: Important Events on Shift:[dressing changed done, K. 3.1 - k tab, K Phos given] Patient Status: [no change] Diet: [regular diet poor po intake] Pending Orders: [none] Pending Results/Labs:[PTH result will be on saturday] Pending MD notification:[none] Latest Vital Signs: Temperature 98.0 , Pulse 80 , B/P 110 /69 , Respiratory Rate 18 , O2 SAT 97 , Room Air, O2 Flow Rate 5.0 . Vital Sign Comment: [stable] Latest Rahman Fall Score: 35 Fall Risk: Medium Risk Safety Measures: Call light Within Reach, Bed Alarm Zone 1, Side Rails Side Rails x2, Bed position Low and Locked. Fall Precautions: Yellow Socks Patient Fall Education high risk for fall Report given to [Mendez HAGER accordingly].
[2020-01-01 20:00] VITALS: BP 104/62
[2020-01-02] VITALS: BP 102/56
--- NOTE | 2020-01-02 02:31 | NUR ---
NURSE NOTES: Received report from Monisha RN. Pt. is in bed, asleep, responsive to stimuli. Breathing even and unlabored. No sob noted. Not in any form of distress. With bed in it's lowest position, with alarm on and locked. On contact ioslation, continuously observed at all times. All meds given. On continued ivatb of Merrem and Gentamicin, without a/r noted. With SP cath, attached to drainage bag and draining to a yellowish colored urine, free of sediments. Slept @ long intervals. Turned and repositioned q2h for comfort and circulation.On ivf of D5 1/2 NS x 50cc/hr, infusing well. Wound treatment and dressing done, kept clean and dry at all times. Denies any pain at this time. Kept clean and dry at all times. Will continue with plan of care.
[2020-01-02] MEDS: HYDROcodone/Acetamin 10/325 tab ORAL PRN ×2 (03:07→16:51)
[2020-01-02 04:00] VITALS: BP 99/57
[2020-01-02] MEDS: Gentamicin inj 300 MG in NS 110 ML IVPB SCH (04:01)
[2020-01-02 07:30] LABS: BASOPHILS % (AUTO) 0.5 % (0.0-2.0); EOSINOPHILS % (AUTO) 1.2 % (0.0-3.0); HEMATOCRIT 28.2 % (42.0-52.0); HEMOGLOBIN 9.5 G/DL (14.2-18.0); LYMPHOCYTES % (AUTO) 10.9 % (20.0-45.0); MEAN CORPUSCULAR VOLUME 96 FL (80-99); MONOCYTES % (AUTO) 5.6 % (1.0-10.0); NEUTROPHILS % (AUTO) 81.8 % (45.0-75.0); PLATELET COUNT 310 K/UL (150-450); RED BLOOD COUNT 2.94 M/UL (4.70-6.10); RED CELL DISTRIBUTION WIDTH 17.8 % (11.6-14.8); WHITE BLOOD COUNT 16.6 K/UL (4.8-10.8)
[2020-01-02 08:00] VITALS: BP 96/54
[2020-01-02 08:00] LABS: ALANINE AMINOTRANSFERASE 38 U/L (12-78); ALBUMIN 1.9 G/DL (3.4-5.0); ALBUMIN/GLOBULIN RATIO 0.4 (1.0-2.7); ALKALINE PHOSPHATASE 70 U/L (46-116); ANION GAP 7 mmol/L (5-15); ASPARTATE AMINO TRANSFERASE 27 U/L (15-37); BILIRUBIN,TOTAL 0.4 MG/DL (0.2-1.0); BLOOD UREA NITROGEN 14 mg/dL (7-18); CALCIUM 8.4 MG/DL (8.5-10.1); CARBON DIOXIDE 26 MMOL/L (21-32); CHLORIDE 106 MMOL/L (98-107); CREATININE 0.8 MG/DL (0.55-1.30); PHOSPHORUS 2.9 MG/DL (2.5-4.9); POTASSIUM 3.1 MMOL/L (3.5-5.1); SODIUM 138 MMOL/L (136-145)
--- NOTE | 2020-01-02 08:09 | NUR ---
NURSE NOTES: pt is awake and alert in the bed. respiration is even and unlabored. pt is calm in the bed. does not say a word, but nods his head when ask a question. IV fluids running as ordered. suprapubic catheter inplace and drains pale yellow urine. no facial grimacing for pain noted. place call light within reach.
--- NOTE | 2020-01-02 08:31 | Infectious Diseases Prog Note ---
Assessment/Plan 59yo M with: UTI -u/a wbc 40/6-, nit +, leuk +2; ucx >100k ESBL e. clocae complex -12/27 UCx NTD Penile necrotic wound infection- polymicrobial -wound cx ESBL E.coli, PsA (R levaquin, I Meropenem), E, gallinarum (R vanco, S Amp) Afebrile Leukocytosis, increased Urethral CA dx'ed 2019 sp chemotherapy x 12 sessions and radiation x8 sessions and surgical intervention (follows at [facility]) hx of penile abscess HIV on Symtuza (dx'ed 20 yrs ago) Former smoker (quit 8yrs ago) Recurrent UTI on bactrim ppx Urinary retention sp chronic suprapubic tube SNF resident ([facility]) Plan: Daptomycin #10 / 14 12/31 CK = 45 Meropenem # for ESBL Gentamycin # / as PsA intermediate to meropenem If no more debridement is planned, would continue IV abx for a total of 14 day course then stop and continue aggressive wound care. End date of all abx to be 01/05 -12/23 SP IV Vancomycin #6 -12/21 SP Cefepime #4, Flagyl #2 -12/18 SP Meropenem x1 -f/u cx -Monitor CBC/CMP, temperatures -wound cx -Uro and Gen sx f/u -wound care per surgical team D/w RN Thank you for consulting [facility]. Will continue to follow along with you. Subjective Allergies: Coded Allergies: CODEINE (Verified Allergy, Unknown, 02/05/10) AF NAD No new complaints WBC 16, improving/stable Objective Last 24 Hour Vital Signs Date Time Temp Pulse Resp B/P (MAP) Pulse Ox O2 Delivery O2 Flow Rate FiO2 01/02/20 04:00 98.3 84 20 99/57 (71) 96 01/02/20 03:37 97.9 01/02/20 00:00 98.3 80 20 102/56 (71) 96 01/01/20 21:00 Room Air 01/01/20 20:00 97.9 73 20 104/62 (76) 97 01/01/20 16:31 98.0 80 18 110/69 (83) 97 01/01/20 12:19 99.3 71 14 109/67 (81) 97 Height (Feet): 5 Height (Inches): 6.00 Weight (Pounds): 132 Gen: NAD in bed HEENT: NCAT, EOMI, PERRL CV: RRR Pulm: CTAB on RA Abd: Soft, NTND Ext: No c/c/e : Necrotic penis with swollen base and open wound wo significant discharge or surrounding erythema Neuro: Awake Laboratory Tests Test 01/02/20 06:10 White Blood Count 16.6 K/UL (4.8-10.8) H Red Blood Count 2.94 M/UL (4.70-6.10) L Hemoglobin 9.5 G/DL (14.2-18.0) L Hematocrit 28.2 % (42.0-52.0) L Mean Corpuscular Volume 96 FL (80-99) Mean Corpuscular Hemoglobin 32.4 PG (27.0-31.0) H Mean Corpuscular Hemoglobin Concent 33.8 G/DL (32.0-36.0) Red Cell Distribution Width 17.8 % (11.6-14.8) H Platelet Count 310 K/UL (150-450) Mean Platelet Volume 5.6 FL (6.5-10.1) L Neutrophils (%) (Auto) 81.8 % (45.0-75.0) H Lymphocytes (%) (Auto) 10.9 % (20.0-45.0) L Monocytes (%) (Auto) 5.6 % (1.0-10.0) Eosinophils (%) (Auto) 1.2 % (0.0-3.0) Basophils (%) (Auto) 0.5 % (0.0-2.0) Sodium Level 138 MMOL/L (136-145) Potassium Level 3.1 MMOL/L (3.5-5.1) L Chloride Level 106 MMOL/L (98-107) Carbon Dioxide Level 26 MMOL/L (21-32) Anion Gap 7 mmol/L (5-15) Blood Urea Nitrogen 14 mg/dL (7-18) Creatinine 0.8 MG/DL (0.55-1.30) Estimat Glomerular Filtration Rate > 60 mL/min (>60) Glucose Level 92 MG/DL (74-106) Calcium Level 8.4 MG/DL (8.5-10.1) L Phosphorus Level 2.9 MG/DL (2.5-4.9) Magnesium Level 1.7 MG/DL (1.8-2.4) L Total Bilirubin 0.4 MG/DL (0.2-1.0) Aspartate Amino Transf (AST/SGOT) 27 U/L (15-37) Alanine Aminotransferase (ALT/SGPT) 38 U/L (12-78) Alkaline Phosphatase 70 U/L (46-116) Total Protein 6.2 G/DL (6.4-8.2) L Albumin 1.9 G/DL (3.4-5.0) L Globulin 4.3 g/dL Albumin/Globulin Ratio 0.4 (1.0-2.7) L Current Medications Medications (Trade) Dose Ordered Sig/Virginie Route PRN Reason Start Time Stop Time Status Last Admin Dose Admin Acetaminophen (Tylenol) 650 mg Q4H PRN ORAL fever 12/19/19 19:00 01/18/20 18:59 01/01/20 13:29 Acetaminophen/ Hydrocodone Bitart ([place] 10/325) 1 tab Q4H PRN ORAL Moderate Pain (Pain Scale 4-6) 01/01/20 15:15 01/08/20 15:14 Acetaminophen/ Hydrocodone Bitart ([place] 10/325) 2 tab Q4H PRN ORAL Severe Pain (Pain Scale 7-10) 01/01/20 15:15 01/08/20 15:14 01/02/20 03:07 Calcitonin [place] (Miacalcin) 1 sprays DAILY NASAL 12/29/19 10:00 03/28/20 09:59 01/01/20 08:54 Daptomycin 250 mg/ Sodium Chloride 55 ml @ 100 mls/hr Q24H IV 12/24/19 16:00 01/06/20 23:59 01/01/20 16:21 Dextrose (Dextrose 50%) 25 ml Q30M PRN IV Hypoglycemia 12/19/19 19:00 03/18/20 18:59 Dextrose (Dextrose 50%) 50 ml Q30M PRN IV Hypoglycemia 12/19/19 19:00 03/18/20 18:59 Dextrose/Sodium Chloride 1,000 ml @ 50 mls/hr Q20H IV 12/28/19 20:45 01/27/20 20:44 01/01/20 13:37 Folic Acid (Folate) 2 mg DAILY ORAL 12/29/19 13:00 01/28/20 12:59 01/01/20 10:44 Gentamicin Protocol (Gentamicin pharmacy to dose) 1 ea DAILY PRN MISC Per rx protocol 12/24/19 13:00 01/23/20 12:59 Gentamicin Sulfate 300 mg/ Sodium Chloride 117.5 ml @ 117.5 mls/ hr Q24H IVPB 01/01/20 04:00 01/08/20 03:59 01/02/20 04:01 Heparin Sodium (Porcine) (Heparin 5000 units/ml) 5,000 units EVERY 12 HOURS SUBQ 12/19/19 21:00 02/02/20 20:59 01/01/20 21:45 Magnesium Sulfate 100 ml @ 100 mls/hr Q1H IVPB 01/02/20 08:30 01/02/20 10:29 Meropenem 2 gm/ Sodium Chloride 100 ml @ 200 mls/hr Q8HR IVPB 12/26/19 14:00 01/06/20 23:59 01/02/20 06:18 Ondansetron HCl (Zofran) 4 mg Q6H PRN IVP Nausea & Vomiting 12/19/19 19:00 01/18/20 18:59 Patient Own Medication (Patient's Own Med) 1 ea DAILY ORAL 12/21/19 18:00 01/20/20 17:59 01/01/20 08:54 Phosphorus (Phospha 250 Neutral) 500 mg THREE TIMES A DAY ORAL 12/31/19 09:00 01/29/20 09:29 01/01/20 17:15 Polyethylene Glycol (Miralax) 17 gm DAILYPRN PRN ORAL Constipation 12/19/19 19:00 01/18/20 18:59 12/29/19 05:14 Potassium Chloride (K-Dur) 40 meq TID ORAL 01/02/20 09:00 03/28/20 12:59 Suellen Riojas M.D. Jan 02, 2020 08:31
--- NOTE | 2020-01-02 08:40 | NUR ---
CHARGE NURSE NOTE: notified regarding PTH rel. protein result. (<2.0)
[2020-01-02] MEDS: Heparin 5000 units/ml inj SUBQ SCH ×2 (08:53→21:50)
[2020-01-02] MEDS: SYMTUZA ORAL SCH (08:56)
[2020-01-02] MEDS: Phospha 250 Neutral tab ORAL SCH ×3 (08:56→18:19)
--- NOTE | 2020-01-02 09:18 | Diagnostic Imaging Report ---
EXAM: XR Chest, 1 View CLINICAL HISTORY: COUGH TECHNIQUE: Frontal view of the chest. COMPARISON: No relevant prior studies available. FINDINGS/IMPRESSION: No focal consolidation, pleural effusion, or pneumothorax. Chronically increased interstitial markings. The heart size is enlarged. The aorta is tortuous. Diffuse osseous demineralization.
[2020-01-02] MEDS: D5NS 1,000 ML IV SCH (10:47)
--- NOTE | 2020-01-02 10:52 | Nephrology Progress Note ---
Assessment/Plan Problem List: (1) Hypercalcemia (2) Urethral cancer (3) Penile abscess (4) Encephalopathy Plan January 01: Calcium lowering. Abnormal electrolyte addressed. Chest x-ray ordered. PTH results within normal limit. December 31: Serum calcium within normal limit of range, but corrected for low albumin is still elevated. Will decrease hydration. Stop IV Lasix. Abnormal electrolytes addressed. Continue to monitor chemistries and electrolytes December 30: Serum calcium continues to decline. Continue hydrate. Down on IV Lasix to every 12 hours. Continue to monitor calcium phosphorus and magnesium. Potassium and phosphorus supplements given. December 29: Serum calcium remains elevated however is going down on current treatment plan. Abnormal electrolytes addressed. Continue to monitor serum calcium. December 28: IV hydration 125 cc an hour Lasix 20 mg every 8 hours Nasal calcitonin 1 dose of pamidronate 90 mg IV piggyback Waiting for PTH and PTH related protein results Replace low folic acid Continue to monitor electrolytes and chemistries Per orders Subjective ROS Limited/Unobtainable: No Constitutional: Reports: malaise Objective Objective Last 24 Hour Vital Signs Date Time Temp Pulse Resp B/P (MAP) Pulse Ox O2 Delivery O2 Flow Rate FiO2 01/02/20 08:00 97.7 71 17 96/54 (68) 100 01/02/20 04:00 98.3 84 20 99/57 (71) 96 01/02/20 03:37 97.9 01/02/20 00:00 98.3 80 20 102/56 (71) 96 01/01/20 21:00 Room Air 01/01/20 20:00 97.9 73 20 104/62 (76) 97 01/01/20 16:31 98.0 80 18 110/69 (83) 97 01/01/20 12:19 99.3 71 14 109/67 (81) 97 Intake and Output 01/01/20 01/02/20 19:00 07:00 Intake Total 500 ml 750 ml Output Total 1200 ml Balance 500 ml -450 ml Intake Oral 750 ml IV Total 200 ml Other 300 ml Output Urine Total 1200 ml Current Medications Medications (Trade) Dose Ordered Sig/Virginie Route PRN Reason Start Time Stop Time Status Last Admin Dose Admin Acetaminophen (Tylenol) 650 mg Q4H PRN ORAL fever 12/19/19 19:00 01/18/20 18:59 01/01/20 13:29 Acetaminophen/ Hydrocodone Bitart ([place] 10/325) 1 tab Q4H PRN ORAL Moderate Pain (Pain Scale 4-6) 01/01/20 15:15 01/08/20 15:14 Acetaminophen/ Hydrocodone Bitart ([place] 10/325) 2 tab Q4H PRN ORAL Severe Pain (Pain Scale 7-10) 01/01/20 15:15 01/08/20 15:14 01/02/20 03:07 Calcitonin [place] (Miacalcin) 1 sprays DAILY NASAL 12/29/19 10:00 03/28/20 09:59 01/01/20 08:54 Daptomycin 250 mg/ Sodium Chloride 55 ml @ 100 mls/hr Q24H IV 12/24/19 16:00 01/06/20 23:59 01/01/20 16:21 Dextrose (Dextrose 50%) 25 ml Q30M PRN IV Hypoglycemia 12/19/19 19:00 03/18/20 18:59 Dextrose (Dextrose 50%) 50 ml Q30M PRN IV Hypoglycemia 12/19/19 19:00 03/18/20 18:59 Dextrose/Sodium Chloride 1,000 ml @ 50 mls/hr Q20H IV 12/28/19 20:45 01/27/20 20:44 01/02/20 10:47 Folic Acid (Folate) 2 mg DAILY ORAL 12/29/19 13:00 01/28/20 12:59 01/02/20 08:57 Gentamicin Protocol (Gentamicin pharmacy to dose) 1 ea DAILY PRN MISC Per rx protocol 12/24/19 13:00 01/23/20 12:59 Gentamicin Sulfate 300 mg/ Sodium Chloride 117.5 ml @ 117.5 mls/ hr Q24H IVPB 01/01/20 04:00 01/08/20 03:59 01/02/20 04:01 Heparin Sodium (Porcine) (Heparin 5000 units/ml) 5,000 units EVERY 12 HOURS SUBQ 12/19/19 21:00 02/02/20 20:59 01/02/20 08:53 Meropenem 2 gm/ Sodium Chloride 100 ml @ 200 mls/hr Q8HR IVPB 12/26/19 14:00 01/06/20 23:59 01/02/20 06:18 Ondansetron HCl (Zofran) 4 mg Q6H PRN IVP Nausea & Vomiting 12/19/19 19:00 01/18/20 18:59 Patient Own Medication (Patient's Own Med) 1 ea DAILY ORAL 12/21/19 18:00 01/20/20 17:59 01/02/20 08:56 Phosphorus (Phospha 250 Neutral) 500 mg THREE TIMES A DAY ORAL 12/31/19 09:00 01/29/20 09:29 01/02/20 08:56 Polyethylene Glycol (Miralax) 17 gm DAILYPRN PRN ORAL Constipation 12/19/19 19:00 01/18/20 18:59 12/29/19 05:14 Potassium Chloride (K-Dur) 40 meq TID ORAL 01/02/20 09:00 03/28/20 12:59 01/02/20 08:56 Laboratory Tests 01/02/20 06:10: White Blood Count 16.6H, Red Blood Count 2.94L, Hemoglobin 9.5L, Hematocrit 28.2L, Mean Corpuscular Volume 96, Mean Corpuscular Hemoglobin 32.4H, Mean Corpuscular Hemoglobin Concent 33.8, Red Cell Distribution Width 17.8H, Platelet Count 310, Mean Platelet Volume 5.6L, Neutrophils (%) (Auto) 81.8H, Lymphocytes (%) (Auto) 10.9L, Monocytes (%) (Auto) 5.6, Eosinophils (%) (Auto) 1.2, B asophils (%) (Auto) 0.5, Sodium Level 138, Potassium Level 3.1L, Chloride Level 106, Carbon Dioxide Level 26, Anion Gap 7, Blood Urea Nitrogen 14, Creatinine 0.8, Estimat Glomerular Filtration Rate > 60, Glucose Level 92, Calcium Level 8.4L, Phosphorus Level 2.9, Magnesium Level 1.7L, Total Bilirubin 0.4, Aspartate Amino Transf (AST/SGOT) 27, Alanine Aminotransferase (ALT/SGPT) 38, Alkaline Phosphatase 70, Total Protein 6.2L, Albumin 1.9L, Globulin 4.3, Albumin/Globulin Ratio 0.4L Height (Feet): 5 Height (Inches): 6.00 Weight (Pounds): 132 General Appearance: no apparent distress Respiratory/Chest: lungs clear Abdomen: soft Objective No change Keaton Doran MD Jan 02, 2020 10:51
--- NOTE | 2020-01-02 11:28 | Surgery Progress Note ---
Surgery Progress Note Subjective Additional Comments states he is well and comfortable but does seem a bit more confused no n/v/f/c labs noted exam stable dressings going well Objective Last 24 Hour Vital Signs Date Time Temp Pulse Resp B/P (MAP) Pulse Ox O2 Delivery O2 Flow Rate FiO2 01/02/20 09:00 Room Air 01/02/20 08:00 97.7 71 17 96/54 (68) 100 01/02/20 04:00 98.3 84 20 99/57 (71) 96 01/02/20 03:37 97.9 01/02/20 00:00 98.3 80 20 102/56 (71) 96 01/01/20 21:00 Room Air 01/01/20 20:00 97.9 73 20 104/62 (76) 97 01/01/20 16:31 98.0 80 18 110/69 (83) 97 01/01/20 12:19 99.3 71 14 109/67 (81) 97 I&O Intake and Output 01/01/20 01/02/20 19:00 07:00 Intake Total 500 ml 750 ml Output Total 1200 ml Balance 500 ml -450 ml Intake Oral 750 ml IV Total 200 ml Other 300 ml Output Urine Total 1200 ml Dressing: saturated Wound: other Cardiovascular: RSR Respiratory: decreased breath sounds Abdomen: soft, non-tender, present bowel sounds, non-distended Extremities: no edema, no tenderness, no cyanosis Laboratory Tests Test 01/02/20 06:10 White Blood Count 16.6 K/UL (4.8-10.8) H Red Blood Count 2.94 M/UL (4.70-6.10) L Hemoglobin 9.5 G/DL (14.2-18.0) L Hematocrit 28.2 % (42.0-52.0) L Mean Corpuscular Volume 96 FL (80-99) Mean Corpuscular Hemoglobin 32.4 PG (27.0-31.0) H Mean Corpuscular Hemoglobin Concent 33.8 G/DL (32.0-36.0) Red Cell Distribution Width 17.8 % (11.6-14.8) H Platelet Count 310 K/UL (150-450) Mean Platelet Volume 5.6 FL (6.5-10.1) L Neutrophils (%) (Auto) 81.8 % (45.0-75.0) H Lymphocytes (%) (Auto) 10.9 % (20.0-45.0) L Monocytes (%) (Auto) 5.6 % (1.0-10.0) Eosinophils (%) (Auto) 1.2 % (0.0-3.0) Basophils (%) (Auto) 0.5 % (0.0-2.0) Sodium Level 138 MMOL/L (136-145) Potassium Level 3.1 MMOL/L (3.5-5.1) L Chloride Level 106 MMOL/L (98-107) Carbon Dioxide Level 26 MMOL/L (21-32) Anion Gap 7 mmol/L (5-15) Blood Urea Nitrogen 14 mg/dL (7-18) Creatinine 0.8 MG/DL (0.55-1.30) Estimat Glomerular Filtration Rate > 60 mL/min (>60) Glucose Level 92 MG/DL (74-106) Calcium Level 8.4 MG/DL (8.5-10.1) L Phosphorus Level 2.9 MG/DL (2.5-4.9) Magnesium Level 1.7 MG/DL (1.8-2.4) L Total Bilirubin 0.4 MG/DL (0.2-1.0) Aspartate Amino Transf (AST/SGOT) 27 U/L (15-37) Alanine Aminotransferase (ALT/SGPT) 38 U/L (12-78) Alkaline Phosphatase 70 U/L (46-116) Total Protein 6.2 G/DL (6.4-8.2) L Albumin 1.9 G/DL (3.4-5.0) L Globulin 4.3 g/dL Albumin/Globulin Ratio 0.4 (1.0-2.7) L Plan Problems: (1) Penile abscess Assessment & Plan: 61-year-old male with known urethral cancer status post ch emoradiation presented with worsening wound necrosis and potential infection of the site. Patient seen prior penis necrosis falling off now remaining soft tissue in the malignancy region also with necrotic nonviable tissue identified. Drainage is serosanguineous at times sometimes serious and does not seem significant purulent. The cellulitis is minimal. Patient's labs noted. Given patient's history condition immunocompromise status recommend IV antibiotics. I discussed the patient and considerations for debriding some of the nonviable tissue though this will not in any way improve his cancer stated could help with local wound care. Patient expressed understanding we will continue to follow with local care and provide as necessary. No drainage of abscess identified at this time we will monitor thank you f/u with primary onc as per heme labs noted on rx wounds and slough/necrotic tissue debridement at bedside penis is fully necrotic and hanging off. will discuss consideration of operative debridement including penis. not recommended at bedside given likely bleeding with debridement. does not want further debridement at this time states feels much better wound less foul odor after last clean ing d/c planning (2) Urethral cancer (3) Abscess (4) Sepsis (5) Catheter-associated urinary tract infection Romain Li Jan 02, 2020 11:28
[2020-01-02 12:00] VITALS: BP 99/57
--- NOTE | 2020-01-02 12:28 | NUR ---
CASE MANAGEMENT:REVIEW 01/02/20 SI: SEPSIS. ESBL UTI. PENILE ABSCESS HIV. URETHRAL CANCER 97.7 71 17 96/54 100% ON RA WBC+16.6 k-3.1 IS: K-DUR PO tid IV GENTAMICIN Q24 IV MEROPENEM Q8HRS IV DAPTOMYCIN Q24 IVF@50/HR HEPARIN SQ Q12 : MED/SURG STATUS DCP: FROM [facility] PLAN: ANTIBIOTICS UNTIL 01/06/20
--- NOTE | 2020-01-02 13:03 | Urology Progress Note ---
Assessment/Plan Assessment/Plan: 1. History of urethral cancer, status post chemo and immunotherapy and radiation with previous debridement. 2. Urinary retention and a chronic suprapubic tube. 3. Probable neurogenic bladder. 4. UTI and colonization. 5. Hematuria. 6. Proteinuria. 7. Mild acute kidney injury. monitor clinically maintain SPT, last exchanged 12/25 hand irrigated and do PRN abx as ordered local wound care debridement PRN Subjective Allergies: Coded Allergies: CODEINE (Verified Allergy, Unknown, 02/05/10) Subjective all noted, more confused new SPT draining ok Objective Last 24 Hour Vital Signs Date Time Temp Pulse Resp B/P (MAP) Pulse Ox O2 Delivery O2 Flow Rate FiO2 01/02/20 09:00 Room Air 01/02/20 08:00 97.7 71 17 96/54 (68) 100 01/02/20 04:00 98.3 84 20 99/57 (71) 96 01/02/20 03:37 97.9 01/02/20 00:00 98.3 80 20 102/56 (71) 96 01/01/20 21:00 Room Air 01/01/20 20:00 97.9 73 20 104/62 (76) 97 01/01/20 16:31 98.0 80 18 110/69 (83) 97 Intake and Output 01/01/20 01/02/20 19:00 07:00 Intake Total 500 ml 750 ml Output Total 1200 ml Balance 500 ml -450 ml Intake Oral 750 ml IV Total 200 ml Other 300 ml Output Urine Total 1200 ml Microbiology Date/Time Source Procedure Growth Status 12/28/19 21:30 Urine,Clean Catch Urine Culture - Final NO GROWTH AFTER 48 HOURS Complete 12/21/19 16:45 Penis Gram Stain - Final Complete 12/21/19 16:45 Wound Culture - Final Pseudomonas Aeruginosa Escherichia Coli - Esbl Enterococcus Gallinarum Complete 12/20/19 10:20 Rectal Mucosa - Final NO CARBAPENEM-RESISTANT ENTEROBACTERI... Complete 12/19/19 16:25 Blood Blood Culture - Final NO GROWTH AFTER 5 DAYS Complete Current Medications Medications (Trade) Dose Ordered Sig/Virginie Route PRN Reason Start Time Stop Time Status Last Admin Dose Admin Acetaminophen (Tylenol) 650 mg Q4H PRN ORAL fever 12/19/19 19:00 01/18/20 18:59 01/01/20 13:29 Acetaminophen/ Hydrocodone Bitart ([place] 10/325) 1 tab Q4H PRN ORAL Moderate Pain (Pain Scale 4-6) 01/01/20 15:15 01/08/20 15:14 Acetaminophen/ Hydrocodone Bitart ([place] 10/325) 2 tab Q4H PRN ORAL Severe Pain (Pain Scale 7-10) 01/01/20 15:15 01/08/20 15:14 01/02/20 03:07 Calcitonin [place] (Miacalcin) 1 sprays DAILY NASAL 12/29/19 10:00 03/28/20 09:59 01/02/20 11:22 Daptomycin 250 mg/ Sodium Chloride 55 ml @ 100 mls/hr Q24H IV 12/24/19 16:00 01/06/20 23:59 01/01/20 16:21 Dextrose (Dextrose 50%) 25 ml Q30M PRN IV Hypoglycemia 12/19/19 19:00 03/18/20 18:59 Dextrose (Dextrose 50%) 50 ml Q30M PRN IV Hypoglycemia 12/19/19 19:00 03/18/20 18:59 Dextrose/Sodium Chloride 1,000 ml @ 50 mls/hr Q20H IV 12/28/19 20:45 01/27/20 20:44 01/02/20 10:47 Folic Acid (Folate) 2 mg DAILY ORAL 12/29/19 13:00 01/28/20 12:59 01/02/20 08:57 Gentamicin Protocol (Gentamicin pharmacy to dose) 1 ea DAILY PRN MISC Per rx protocol 12/24/19 13:00 01/23/20 12:59 Gentamicin Sulfate 300 mg/ Sodium Chloride 117.5 ml @ 117.5 mls/ hr Q24H IVPB 01/01/20 04:00 01/08/20 03:59 01/02/20 04:01 Heparin Sodium (Porcine) (Heparin 5000 units/ml) 5,000 units EVERY 12 HOURS SUBQ 12/19/19 21:00 02/02/20 20:59 01/02/20 08:53 Meropenem 2 gm/ Sodium Chloride 100 ml @ 200 mls/hr Q8HR IVPB 12/26/19 14:00 01/06/20 23:59 01/02/20 06:18 Ondansetron HCl (Zofran) 4 mg Q6H PRN IVP Nausea & Vomiting 12/19/19 19:00 01/18/20 18:59 Patient Own Medication (Patient's Own Med) 1 ea DAILY ORAL 12/21/19 18:00 01/20/20 17:59 01/02/20 08:56 Phosphorus (Phospha 250 Neutral) 500 mg THREE TIMES A DAY ORAL 12/31/19 09:00 01/29/20 09:29 01/02/20 08:56 Polyethylene Glycol (Miralax) 17 gm DAILYPRN PRN ORAL Constipation 12/19/19 19:00 01/18/20 18:59 12/29/19 05:14 Potassium Chloride (K-Dur) 40 meq TID ORAL 01/02/20 09:00 03/28/20 12:59 01/02/20 08:56 Laboratory Tests 01/02/20 06:10: White Blood Count 16.6H, Red Blood Count 2.94L, Hemoglobin 9.5L, Hematocrit 28.2L, Mean Corpuscular Volume 96, Mean Corpuscular Hemoglobin 32.4H, Mean Corpuscular Hemoglobin Concent 33.8, Red Cell Distribution Width 17.8H, Platelet Count 310, Mean Platelet Volume 5.6L, Neutrophils (%) (Auto) 81.8H, Lymphocytes (%) (Auto) 10.9L, Monocytes (%) (Auto) 5.6, Eosinophils (%) (Auto) 1.2, Basoph ils (%) (Auto) 0.5, Sodium Level 138, Potassium Level 3.1L, Chloride Level 106, Carbon Dioxide Level 26, Anion Gap 7, Blood Urea Nitrogen 14, Creatinine 0.8, Estimat Glomerular Filtration Rate > 60, Glucose Level 92, Calcium Level 8.4L, Phosphorus Level 2.9, Magnesium Level 1.7L, Total Bilirubin 0.4, Aspartate Amino Transf (AST/SGOT) 27, Alanine Aminotransferase (ALT/SGPT) 38, Alkaline Phosphatase 70, Total Protein 6.2L, Albumin 1.9L, Globulin 4.3, Albumin/Globulin Ratio 0.4L Height (Feet): 5 Height (Inches): 6.00 Weight (Pounds): 132 Objective exam stable granulation tissue Chas Larsen MD Jan 02, 2020 13:03
[2020-01-02 16:00] VITALS: BP 99/56
[2020-01-02] MEDS: DAPTOmycin 250 MG in NS 55 ML IV SCH (16:23)
--- NOTE | 2020-01-02 17:14 | Internal Med Progress Note ---
Subjective Date of Service: Jan 02, 2020 Physician Name Javier Martel Attending Physician Ron Enriquez MD Current Medications Medications (Trade) Dose Ordered Sig/Virginie Route PRN Reason Start Time Stop Time Status Last Admin Dose Admin Acetaminophen (Tylenol) 650 mg Q4H PRN ORAL fever 12/19/19 19:00 01/18/20 18:59 01/01/20 13:29 Acetaminophen/ Hydrocodone Bitart ([place] 10/325) 1 tab Q4H PRN ORAL Moderate Pain (Pain Scale 4-6) 01/01/20 15:15 01/08/20 15:14 01/02/20 16:51 Acetaminophen/ Hydrocodone Bitart ([place] 10/325) 2 tab Q4H PRN ORAL Severe Pain (Pain Scale 7-10) 01/01/20 15:15 01/08/20 15:14 01/02/20 03:07 Calcitonin [place] (Miacalcin) 1 sprays DAILY NASAL 12/29/19 10:00 03/28/20 09:59 01/02/20 11:22 Daptomycin 250 mg/ Sodium Chloride 55 ml @ 100 mls/hr Q24H IV 12/24/19 16:00 01/06/20 23:59 01/02/20 16:23 Dextrose (Dextrose 50%) 25 ml Q30M PRN IV Hypoglycemia 12/19/19 19:00 03/18/20 18:59 Dextrose (Dextrose 50%) 50 ml Q30M PRN IV Hypoglycemia 12/19/19 19:00 03/18/20 18:59 Dextrose/Sodium Chloride 1,000 ml @ 50 mls/hr Q20H IV 12/28/19 20:45 01/27/20 20:44 01/02/20 10:47 Folic Acid (Folate) 2 mg DAILY ORAL 12/29/19 13:00 01/28/20 12:59 01/02/20 08:57 Gentamicin Protocol (Gentamicin pharmacy to dose) 1 ea DAILY PRN MISC Per rx protocol 12/24/19 13:00 01/23/20 12:59 Gentamicin Sulfate 300 mg/ Sodium Chloride 117.5 ml @ 117.5 mls/ hr Q24H IVPB 01/01/20 04:00 01/08/20 03:59 01/02/20 04:01 Heparin Sodium (Porcine) (Heparin 5000 units/ml) 5,000 units EVERY 12 HOURS SUBQ 12/19/19 21:00 02/02/20 20:59 01/02/20 08:53 Meropenem 2 gm/ Sodium Chloride 100 ml @ 200 mls/hr Q8HR IVPB 12/26/19 14:00 01/06/20 23:59 01/02/20 13:19 Ondansetron HCl (Zofran) 4 mg Q6H PRN IVP Nausea & Vomiting 12/19/19 19:00 01/18/20 18:59 Patient Own Medication (Patient's Own Med) 1 ea DAILY ORAL 12/21/19 18:00 01/20/20 17:59 01/02/20 08:56 Phosphorus (Phospha 250 Neutral) 500 mg THREE TIMES A DAY ORAL 12/31/19 09:00 01/29/20 09:29 01/02/20 13:18 Polyethylene Glycol (Miralax) 17 gm DAILYPRN PRN ORAL Constipation 12/19/19 19:00 01/18/20 18:59 12/29/19 05:14 Potassium Chloride (K-Dur) 40 meq TID ORAL 01/02/20 09:00 03/28/20 12:59 01/02/20 13:18 Allergies: Coded Allergies: CODEINE (Verified Allergy, Unknown, 02/05/10) ROS Limited/Unobtainable: No Constitutional: Reports: no symptoms HEENT: Reports: no symptoms Cardiovascular: Reports: no symptoms Respiratory: Reports: no symptoms Gastrointestinal/Abdominal: Reports: no symptoms Genitourinary: Reports: no symptoms Neurologic/Psychiatric: Reports: no symptoms Subjective 59 YO M with H/O urethral cancer admitted with Penile abscess and UTI. Cover for Int Med-Dr Enriquez. S/P bedside debridement 12/23/19 Objective Last Vital Signs Date Time Temp Pulse Resp B/P (MAP) Pulse Ox O2 Delivery O2 Flow Rate FiO2 01/02/20 16:00 98.2 84 18 99/56 (70) 96 01/02/20 09:00 Room Air 12/31/19 14:39 21 Laboratory Tests Test 01/02/20 06:10 White Blood Count 16.6 K/UL (4.8-10.8) H Red Blood Count 2.94 M/UL (4.70-6.10) L Hemoglobin 9.5 G/DL (14.2-18.0) L Hematocrit 28.2 % (42.0-52.0) L Mean Corpuscular Volume 96 FL (80-99) Mean Corpuscular Hemoglobin 32.4 PG (27.0-31.0) H Mean Corpuscular Hemoglobin Concent 33.8 G/DL (32.0-36.0) Red Cell Distribution Width 17.8 % (11.6-14.8) H Platelet Count 310 K/UL (150-450) Mean Platelet Volume 5.6 FL (6.5-10.1) L Neutrophils (%) (Auto) 81.8 % (45.0-75.0) H Lymphocytes (%) (Auto) 10.9 % (20.0-45.0) L Monocytes (%) (Auto) 5.6 % (1.0-10.0) Eosinophils (%) (Auto) 1.2 % (0.0-3.0) Basophils (%) (Auto) 0.5 % (0.0-2.0) Sodium Level 138 MMOL/L (136-145) Potassium Level 3.1 MMOL/L (3.5-5.1) L Chloride Level 106 MMOL/L (98-107) Carbon Dioxide Level 26 MMOL/L (21-32) Anion Gap 7 mmol/L (5-15) Blood Urea Nitrogen 14 mg/dL (7-18) Creatinine 0.8 MG/DL (0.55-1.30) Estimat Glomerular Filtration Rate > 60 mL/min (>60) Glucose Level 92 MG/DL (74-106) Calcium Level 8.4 MG/DL (8.5-10.1) L Phosphorus Level 2.9 MG/DL (2.5-4.9) Magnesium Level 1.7 MG/DL (1.8-2.4) L Total Bilirubin 0.4 MG/DL (0.2-1.0) Aspartate Amino Transf (AST/SGOT) 27 U/L (15-37) Alanine Aminotransferase (ALT/SGPT) 38 U/L (12-78) Alkaline Phosphatase 70 U/L (46-116) Total Protein 6.2 G/DL (6.4-8.2) L Albumin 1.9 G/DL (3.4-5.0) L Globulin 4.3 g/dL Albumin/Globulin Ratio 0.4 (1.0-2.7) L Intake and Output 01/01/20 01/02/20 19:00 07:00 Intake Total 500 ml 750 ml Output Total 1200 ml Balance 500 ml -450 ml Intake Oral 750 ml IV Total 200 ml Other 300 ml Output Urine Total 1200 ml Objective PHYSICAL EXAMINATION: GENERAL: The patient is a well-developed and well-nourished male, in no apparent distress. HEENT: Eyes, pupils equal and responsive to light and accommodation. Extraocular movements are intact. NECK: Supple without lymphadenopathy. CHEST: Lungs are clear to auscultation bilaterally without wheezes or rales. CARDIOVASCULAR: Regular rate. S1, S2 are normal without murmurs, rubs, or gallops. ABDOMEN: Soft, nontender, and nondistended. Positive bowel sounds. No evidence of hepatosplenomegaly. Currently, no rebound or guarding noted. EXTREMITIES: Negative for clubbing, cyanosis, or edema. RECTAL AND GENITAL: There is a large fungating mass over the penile and scrotal region. There is foul odor. NEUROLOGICAL: Cranial nerves II through XII are grossly intact without focal deficits. Motor strength is 5/5 bilaterally intact. Deep tendon reflexes are 2+, plantar. Assessment/Plan Assessment/Plan ASSESSMENT: This is a 59-year-old male with: 1. Urinary tract infection=ESBL Enterobacter cloacae 2. Penile abscess. 3. HIV. 4. Urethral cancer. 5. Hypercalcemia-improving TREATMENT: 1. Urinary tract infection/penile abscess/necrotic tissue Antibiotics=meropenem, daptomycin and gentamicin- completion date= 01/06/20 Infectious Disease consulltation = Dr. Rider. 2. HIV. Continue Symtuza as above. 3. Penile/urethral cancer. Oncology consultation = Dr. Mandeep Horta. Urology consultation = Dr. Chas Larsen. 4. S/P bedside debridement; recommend debridement in OR per surgery 5. Nephrology=Dr Doran. PTH decreased. Continue pamidronate, calcitonin and lasix Javier Martel MD Jan 02, 2020 17:14
--- NOTE | 2020-01-02 18:55 | NUR ---
NURSE HAND-OFF: Important Events on Shift:N/A Patient Status: asleep and arousable Diet: REGULAR Pending Orders: N/A Pending Results/Labs:N/A Pending MD notification:N/A Latest Vital Signs: Temperature 98.2 , Pulse 84 , B/P 99 /56 , Respiratory Rate 18 , O2 SAT 96 , Room Air, O2 Flow Rate 5.0 . Vital Sign Comment: STABLE Latest Rahman Fall Score: 35 Fall Risk: Medium Risk Safety Measures: Call light Within Reach, Bed Alarm Zone 1, Side Rails Side Rails x2, Bed position Low and Locked. Fall Precautions: Yellow Socks Patient Fall Education Report given to . Addendum: 01/02/20 at 1931 by Radhames Leon RN HAND-OFF: Report given to PINEDA.
[2020-01-02 20:00] VITALS: BP 99/59
--- NOTE | 2020-01-02 20:10 | NUR ---
NURSE NOTES: RECEIVED PATIENT FROM [facility]. PATIENT IS ASLEEP,AROUSABLE, ON ROOM AIR, NO ACUTE DISTRESS NOTED. SUPRAPUBIC CATHETER IN PLACE, DRAINING WELL, YELLOW URINE NOTED. CATHETER ANCHOR IN PLACE. PATIENT HAS A LEFT UPPER ARM PORT-A-CATH, NOT IN USE. PIV ON RIGHT FOREARM INTACT AND PATENT, RUNNING D5NS AT 50 ML/HR. WOUND DRESSINGS ON PENILE SACRAL AND HEELS INTACT AND DRY. PATIENT IS A FALL RISK, COMMUNICATED WITH STAFF AND CHARGE NURSE TO PERFORM FREQUENT ROUNDING. YELLOW ARMBAND, YELLOW GOWN, YELLOW SOCKS AND FALL RISK DOOR SIGN IN PLACE. BED IS LOCKED AND LOW, BED ALARMS ACTIVE, SIDE RAILS UPX2 AND CALL LIGHT IS WITHIN REACH. WILL CONTINUE TO MONITOR CLOSELY.
[2020-01-03] VITALS: BP 116/65
[2020-01-03 04:00] VITALS: BP 110/64
[2020-01-03] MEDS: Gentamicin inj 300 MG in NS 110 ML IVPB SCH (04:22)
[2020-01-03] MEDS: HYDROcodone/Acetamin 10/325 tab ORAL PRN ×2 (04:23→20:56)
[2020-01-03] MEDS: D5NS 1,000 ML IV SCH (06:48)
--- NOTE | 2020-01-03 07:30 | NUR ---
HAND-OFF: Report given to ALBA Abernathy.
--- NOTE | 2020-01-03 07:35 | NUR ---
NURSE NOTES: RECEIVED PATIENT A/A/OX4, VERBALLY RESPONSIVE. DENIES OF PAIN/DISCOMFORT NOTED. PIV PATENT AND INTACT. PORTACATH MICHELLE CLEAN, DRY AND INTACT FOR CHEMORADIATION USE. SUPRAPUBIC CATH INPLACED AND DRAINS YELLOW COLOR URINE. WOUND DRSG DRY, CLEAN AND INTACT. REQUIRED FREQUENT MONITORING. VERBALIZED UNDERSTANDING. KEPT BED IS IN THE LOWEST POSITION. SIDERAILS ARE UPX3. CALL LIGHT IS WITHIN REACH. BED ALARM ACTIVATED AND LOCK MODE ENGAGED. WILL CONT TO MONITOR.
[2020-01-03 07:46] LABS: BASOPHILS % (AUTO) 0.4 % (0.0-2.0); EOSINOPHILS % (AUTO) 1.4 % (0.0-3.0); HEMATOCRIT 30.2 % (42.0-52.0); HEMOGLOBIN 9.5 G/DL (14.2-18.0); LYMPHOCYTES % (AUTO) 9.1 % (20.0-45.0); MEAN CORPUSCULAR VOLUME 94 FL (80-99); MONOCYTES % (AUTO) 7.4 % (1.0-10.0); NEUTROPHILS % (AUTO) 81.8 % (45.0-75.0); PLATELET COUNT 321 K/UL (150-450); RED BLOOD COUNT 3.21 M/UL (4.70-6.10); RED CELL DISTRIBUTION WIDTH 15.8 % (11.6-14.8); WHITE BLOOD COUNT 15.8 K/UL (4.8-10.8)
[2020-01-03 08:00] VITALS: BP 99/57
[2020-01-03] MEDS: Phospha 250 Neutral tab ORAL SCH ×2 (09:14→17:20)
[2020-01-03] MEDS: Heparin 5000 units/ml inj SUBQ SCH ×2 (09:25→21:03)
[2020-01-03] MEDS: SYMTUZA ORAL SCH (09:28)
--- NOTE | 2020-01-03 10:14 | NUR ---
CASE MANAGEMENT:REVIEW 01/03/20 SI: SEPSIS. ESBL UTI. PENILE ABSCESS HIV. URETHRAL CANCER 97.2 72 18 99/57 93% ON RA WBC+15.8 IS: K-DUR PO tid IV GENTAMICIN Q24 IV MEROPENEM Q8HRS IV DAPTOMYCIN Q24 IVF@50/HR HEPARIN SQ Q12 : MED/SURG STATUS DCP: [facility] PLAN: ANTIBIOTICS UNTIL 01/06/20
--- NOTE | 2020-01-03 10:42 | Hematology/Onc Progress Note ---
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 Leonard at [facility], per patient is his med onc --> dw 12/21 Dr. Leonard [facility] further f/u --> labs have been reviewed, hold off on tumor markers --> has been seen by Dr. Larsen here and recs noted debridement at some point --> 12/22 s/p debridement at bedside # Leukocytosis likely due to Penile abscess --> requires abx as per id vanc/flagyl/cefepime-->vanc/chelsea-->chelsea/dap/gent --> wbc 13-->14-->13--.12.4-->16-->16.6-->18 # HYpercalcemia --> Ca+ 14.6-->13.2 --> repeat as needed --> ivf, lasix, calcitonin per renal, pamidronate --> per renal # Anemia likely chronic disease v other cause --> hgb 12-->11->10 # Urinary retention with chronic suprapubic tube. --> per uro, surg care # Probable neurogenic bladder. # Urinary tract infection and colonization. # Hematuria. --> improved # Dvt ppx --> hep sq Appreciate consultation and dw RN Subjective Constitutional: Denies: no symptoms, chills, fever, malaise, weakness, other HEENT: Denies: no symptoms, eye pain, blurred vision, tearing, double vision, ear pain, ear discharge, nose pain, nose congestion, throat pain, throat swelling, mouth pain, mouth swelling, other Cardiovascular: Denies: no symptoms, chest pain, edema, irregular heart rate, lightheadedness, palpitations, syncope, other Genitourinary: Denies: no symptoms, burning, discharge, frequency, flank pain, hematuria, incontinence, pain, urgency, other Neurologic/Psychiatric: Denies: no symptoms, anxiety, depressed, emotional problems, headache, numbness, paresthesia, pre-existing deficit, seizure, tingling, tremors, weakness, other Endocrine: Denies: no symptoms, excessive sweating, flushing, intolerance to cold, intolerance to heat, increased hunger, increased thirst, increased urine, unexplained weight gain, unexplained weight loss, other Hematologic/Lymphatic: Denies: no symptoms, anemia, easy bleeding, easy bruising, adenopathy, other Allergies: Coded Allergies: CODEINE (Verified Allergy, Unknown, 02/05/10) Subjective 12/21 is on abx vanc/flagyl, cefepime, on hep, suprapub catheter functional 12/22 no major events, debridement at some pt, dw Dr. Leonard yesterday [facility] 12/23 underwent bedside debridement yesterday, feeling better, dressing in place 12/24 meds reviewed, meds noted, no bleeding, dw rn 12/26 on chelsea, dapto, gent, no bleeding, meds noted, labs reviewed 12/27 wound care, dressing changes, labs reviewed, no bleeding 12/28 labs pending, meds reviewed, no bleeding or night sweats 12/29 labs reviewed, meds ntoed, with elev wbc, on abx 12/30 labs reviewed, wbc is elevated, abx, does not want a new iv line 12/31 labs reviewed, meds noted, Ca++ high, no night sweats or bleeding 01/02 asleep, no bleeding, or night sweats, CA++ imrpoved Objective Objective Current Medications Medications (Trade) Dose Ordered Sig/Virginie Route PRN Reason Start Time Stop Time Status Last Admin Dose Admin Acetaminophen (Tylenol) 650 mg Q4H PRN ORAL fever 12/19/19 19:00 01/18/20 18:59 01/01/20 13:29 Acetaminophen/ Hydrocodone Bitart ([place] 10/325) 1 tab Q4H PRN ORAL Moderate Pain (Pain Scale 4-6) 01/01/20 15:15 01/08/20 15:14 01/02/20 16:51 Acetaminophen/ Hydrocodone Bitart ([place] 10/325) 2 tab Q4H PRN ORAL Severe Pain (Pain Scale 7-10) 01/01/20 15:15 01/08/20 15:14 01/03/20 04:23 Calcitonin [place] (Miacalcin) 1 sprays DAILY NASAL 12/29/19 10:00 03/28/20 09:59 01/03/20 09:34 Daptomycin 250 mg/ Sodium Chloride 55 ml @ 100 mls/hr Q24H IV 12/24/19 16:00 01/06/20 23:59 01/02/20 16:23 Dextrose (Dextrose 50%) 25 ml Q30M PRN IV Hypoglycemia 12/19/19 19:00 03/18/20 18:59 Dextrose (Dextrose 50%) 50 ml Q30M PRN IV Hypoglycemia 12/19/19 19:00 03/18/20 18:59 Dextrose/Sodium Chloride 1,000 ml @ 50 mls/hr Q20H IV 12/28/19 20:45 01/27/20 20:44 01/03/20 06:48 Folic Acid (Folate) 2 mg DAILY ORAL 12/29/19 13:00 01/28/20 12:59 01/03/20 09:14 Gentamicin Protocol (Gentamicin pharmacy to dose) 1 ea DAILY PRN MISC Per rx protocol 12/24/19 13:00 01/23/20 12:59 Gentamicin Sulfate 300 mg/ Sodium Chloride 117.5 ml @ 117.5 mls/ hr Q24H IVPB 01/01/20 04:00 01/08/20 03:59 01/03/20 04:22 Heparin Sodium (Porcine) (Heparin 5000 units/ml) 5,000 units EVERY 12 HOURS SUBQ 12/19/19 21:00 02/02/20 20:59 01/03/20 09:25 Meropenem 2 gm/ Sodium Chloride 100 ml @ 200 mls/hr Q8HR IVPB 12/26/19 14:00 01/06/20 23:59 01/03/20 06:48 Ondansetron HCl (Zofran) 4 mg Q6H PRN IVP Nausea & Vomiting 12/19/19 19:00 01/18/20 18:59 Patient Own Medication (Patient's Own Med) 1 ea DAILY ORAL 12/21/19 18:00 01/20/20 17:59 01/03/20 09:28 Phosphorus (Phospha 250 Neutral) 500 mg THREE TIMES A DAY ORAL 12/31/19 09:00 01/29/20 09:29 01/03/20 09:14 Polyethylene Glycol (Miralax) 17 gm DAILYPRN PRN ORAL Constipation 12/19/19 19:00 01/18/20 18:59 12/29/19 05:14 Potassium Chloride (K-Dur) 40 meq TID ORAL 01/02/20 09:00 03/28/20 12:59 01/03/20 09:14 Last 24 Hour Vital Signs Date Time Temp Pulse Resp B/P (MAP) Pulse Ox O2 Delivery O2 Flow Rate FiO2 01/03/20 09:00 Room Air 01/03/20 08:00 97.2 72 18 99/57 (71) 93 01/03/20 04:00 98.5 76 17 110/64 (79) 97 01/03/20 00:00 98.5 83 18 116/65 (82) 98 01/02/20 21:00 Room Air 01/02/20 20:00 98.3 79 17 99/59 (72) 98 01/02/20 16:00 98.2 84 18 99/56 (70) 96 01/02/20 12:00 98.1 73 18 99/57 (71) 89 01/02/20 09:00 Room Air 01/02/20 08:00 97.7 71 17 96/54 (68) 100 01/02/20 04:00 98.3 84 20 99/57 (71) 96 01/02/20 03:37 97.9 01/02/20 00:00 98.3 80 20 102/56 (71) 96 01/01/20 21:00 Room Air 01/01/20 20:00 97.9 73 20 104/62 (76) 97 01/01/20 16:31 98.0 80 18 110/69 (83) 97 01/01/20 12:19 99.3 71 14 109/67 (81) 97 Intake and Output 01/02/20 01/03/20 19:00 07:00 Intake Total 530 ml 550 ml Output Total 1400 ml 1350 ml Balance -870 ml -800 ml Intake Oral 480 ml IV Total 50 ml 550 ml Output Urine Total 1400 ml 1350 ml # Voids 1 Labs Test 12/31/19 17:10 01/01/20 05:33 01/02/20 06:10 01/03/20 07:20 Random Gentamicin Level 2.4 ug/mL Sodium Level 140 MMOL/L (136-145) 138 MMOL/L (136-145) Potassium Level 3.1 MMOL/L (3.5-5.1) 3.1 MMOL/L (3.5-5.1) Chloride Level 108 MMOL/L (98-107) 106 MMOL/L (98-107) Carbon Dioxide Level 25 MMOL/L (21-32) 26 MMOL/L (21-32) Anion Gap 7 mmol/L (5-15) 7 mmol/L (5-15) Blood Urea Nitrogen 18 mg/dL (7-18) 14 mg/dL (7-18) Creatinine 1.0 MG/DL (0.55-1.30) 0.8 MG/DL (0.55-1.30) Estimat Glomerular Filtration Rate > 60 mL/min (>60) > 60 mL/min (>60) Glucose Level 131 MG/DL (74-106) 92 MG/DL (74-106) Calcium Level 9.9 MG/DL (8.5-10.1) 8.4 MG/DL (8.5-10.1) Phosphorus Level 2.1 MG/DL (2.5-4.9) 2.9 MG/DL (2.5-4.9) Magnesium Level 1.8 MG/DL (1.8-2.4) 1.7 MG/DL (1.8-2.4) Total Bilirubin 0.4 MG/DL (0.2-1.0) 0.4 MG/DL (0.2-1.0) Aspartate Amino Transf (AST/SGOT) 35 U/L (15-37) 27 U/L (15-37) Alanine Aminotransferase (ALT/SGPT) 42 U/L (12-78) 38 U/L (12-78) Alkaline Phosphatase 77 U/L (46-116) 70 U/L (46-116) Total Creatine Kinase 45 U/L (26-308) Total Protein 6.7 G/DL (6.4-8.2) 6.2 G/DL (6.4-8.2) Albumin 2.1 G/DL (3.4-5.0) 1.9 G/DL (3.4-5.0) Globulin 4.6 g/dL 4.3 g/dL Albumin/Globulin Ratio 0.5 (1.0-2.7) 0.4 (1.0-2.7) White Blood Count 16.6 K/UL (4.8-10.8) 15.8 K/UL (4.8-10.8) Red Blood Count 2.94 M/UL (4.70-6.10) 3.21 M/UL (4.70-6.10) Hemoglobin 9.5 G/DL (14.2-18.0) 9.5 G/DL (14.2-18.0) Hematocrit 28.2 % (42.0-52.0) 30.2 % (42.0-52.0) Mean Corpuscular Volume 96 FL (80-99) 94 FL (80-99) Mean Corpuscular Hemoglobin 32.4 PG (27.0-31.0) 29.7 PG (27.0-31.0) Mean Corpuscular Hemoglobin Concent 33.8 G/DL (32.0-36.0) 31.6 G/DL (32.0-36.0) Red Cell Distribution Width 17.8 % (11.6-14.8) 15.8 % (11.6-14.8) Platelet Count 310 K/UL (150-450) 321 K/UL (150-450) Mean Platelet Volume 5.6 FL (6.5-10.1) 6.1 FL (6.5-10.1) Neutrophils (%) (Auto) 81.8 % (45.0-75.0) 81.8 % (45.0-75.0) Lymphocytes (%) (Auto) 10.9 % (20.0-45.0) 9.1 % (20.0-45.0) Monocytes (%) (Auto) 5.6 % (1.0-10.0) 7.4 % (1.0-10.0) Eosinophils (%) (Auto) 1.2 % (0.0-3.0) 1.4 % (0.0-3.0) Basophils (%) (Auto) 0.5 % (0.0-2.0) 0.4 % (0.0-2.0) Height (Feet): 5 Height (Inches): 6.00 Weight (Pounds): 132 Objective Physical Exam Sp02 EP Interpretation: reviewed, normal General: no apparent distress, Chronically Ill Heent: normocephalic, atraumatic Respiratory: lungs clear, normal breath sounds Cardiovascular: normal peripheral pulses, regular rate Gastrointestinal: non tender, soft, non-distended, no guarding Genitourinary: other - Large area of necrosis noted in the genital region with purulent discharge, ++suprapub catheter Neurologic: alert, oriented x3 Skin: normal color, warm/dry Mandeep Horta MD Jan 03, 2020 10:42
[2020-01-03 11:12] LABS: ANION GAP 6 mmol/L (5-15); BLOOD UREA NITROGEN 14 mg/dL (7-18); CALCIUM 7.7 MG/DL (8.5-10.1); CARBON DIOXIDE 27 MMOL/L (21-32); CHLORIDE 104 MMOL/L (98-107); CREATININE 0.9 MG/DL (0.55-1.30); POTASSIUM 3.8 MMOL/L (3.5-5.1); SODIUM 137 MMOL/L (136-145)
[2020-01-03 11:16] LABS: ALANINE AMINOTRANSFERASE 29 U/L (12-78); ALBUMIN 1.9 G/DL (3.4-5.0); ALBUMIN/GLOBULIN RATIO 0.5 (1.0-2.7); ALKALINE PHOSPHATASE 74 U/L (46-116); ASPARTATE AMINO TRANSFERASE 23 U/L (15-37); BILIRUBIN,TOTAL 0.3 MG/DL (0.2-1.0); PHOSPHORUS 2.8 MG/DL (2.5-4.9)
[2020-01-03 12:05] VITALS: BP 107/64
--- NOTE | 2020-01-03 12:27 | Nephrology Progress Note ---
Assessment/Plan Problem List: (1) Hypercalcemia (2) Urethral cancer (3) Penile abscess (4) Encephalopathy Plan January 02: Labs are reviewed. Medication reviewed. Serum calcium now within acceptable range. Will DC IV fluid. Will DC nasal calcitonin. Adjust phosphorus and potassium supplements. Continue per current treatment plan. Check labs tomorrow. January 01: Calcium lowering. Abnormal electrolyte addressed. Chest x-ray ordered. PTH results within normal limit. December 31: Serum calcium within normal limit of range, but corrected for low albumin is still elevated. Will decrease hydration. Stop IV Lasix. Abnormal electrolytes addressed. Continue to monitor chemistries and electrolytes December 30: Serum calcium continues to decline. Continue hydrate. Down on IV Lasix to every 12 hours. Continue to monitor calcium phosphorus and magnesium. Potassium and phosphorus supplements given. December 29: Serum calcium remains elevated however is going down on current treatment plan. Abnormal electrolytes addressed. Continue to monitor serum calcium. December 28: IV hydration 125 cc an hour Lasix 20 mg every 8 hours Nasal calcitonin 1 dose of pamidronate 90 mg IV piggyback Waiting for PTH and PTH related protein results Replace low folic acid Continue to monitor electrolytes and chemistries Per orders Subjective ROS Limited/Unobtainable: No Constitutional: Reports: malaise Objective Objective Last 24 Hour Vital Signs Date Time Temp Pulse Resp B/P (MAP) Pulse Ox O2 Delivery O2 Flow Rate FiO2 01/03/20 12:05 99.4 82 18 107/64 (78) 96 01/03/20 09:00 Room Air 01/03/20 08:00 97.2 72 18 99/57 (71) 93 01/03/20 04:00 98.5 76 17 110/64 (79) 97 01/03/20 00:00 98.5 83 18 116/65 (82) 98 01/02/20 21:00 Room Air 01/02/20 20:00 98.3 79 17 99/59 (72) 98 01/02/20 16:00 98.2 84 18 99/56 (70) 96 Intake and Output 01/02/20 01/03/20 19:00 07:00 Intake Total 530 ml 550 ml Output Total 1400 ml 1350 ml Balance -870 ml -800 ml Intake Oral 480 ml IV Total 50 ml 550 ml Output Urine Total 1400 ml 1350 ml # Voids 1 Current Medications Medications (Trade) Dose Ordered Sig/Virginie Route PRN Reason Start Time Stop Time Status Last Admin Dose Admin Acetaminophen (Tylenol) 650 mg Q4H PRN ORAL fever 12/19/19 19:00 01/18/20 18:59 01/01/20 13:29 Acetaminophen/ Hydrocodone Bitart ([place] 10/325) 1 tab Q4H PRN ORAL Moderate Pain (Pain Scale 4-6) 01/01/20 15:15 01/08/20 15:14 01/02/20 16:51 Acetaminophen/ Hydrocodone Bitart ([place] 10/325) 2 tab Q4H PRN ORAL Severe Pain (Pain Scale 7-10) 01/01/20 15:15 01/08/20 15:14 01/03/20 04:23 Calcitonin [place] (Miacalcin) 1 sprays DAILY NASAL 12/29/19 10:00 03/28/20 09:59 01/03/20 09:34 Daptomycin 250 mg/ Sodium Chloride 55 ml @ 100 mls/hr Q24H IV 12/24/19 16:00 01/06/20 23:59 01/02/20 16:23 Dextrose (Dextrose 50%) 25 ml Q30M PRN IV Hypoglycemia 12/19/19 19:00 03/18/20 18:59 Dextrose (Dextrose 50%) 50 ml Q30M PRN IV Hypoglycemia 12/19/19 19:00 03/18/20 18:59 Dextrose/Sodium Chloride 1,000 ml @ 50 mls/hr Q20H IV 12/28/19 20:45 01/27/20 20:44 01/03/20 06:48 Folic Acid (Folate) 2 mg DAILY ORAL 12/29/19 13:00 01/28/20 12:59 01/03/20 09:14 Gentamicin Protocol (Gentamicin pharmacy to dose) 1 ea DAILY PRN MISC Per rx protocol 12/24/19 13:00 01/23/20 12:59 Gentamicin Sulfate 300 mg/ Sodium Chloride 117.5 ml @ 117.5 mls/ hr Q24H IVPB 01/01/20 04:00 01/08/20 03:59 01/03/20 04:22 Heparin Sodium (Porcine) (Heparin 5000 units/ml) 5,000 units EVERY 12 HOURS SUBQ 12/19/19 21:00 02/02/20 20:59 01/03/20 09:25 Meropenem 2 gm/ Sodium Chloride 100 ml @ 200 mls/hr Q8HR IVPB 12/26/19 14:00 01/06/20 23:59 01/03/20 06:48 Ondansetron HCl (Zofran) 4 mg Q6H PRN IVP Nausea & Vomiting 12/19/19 19:00 01/18/20 18:59 Patient Own Medication (Patient's Own Med) 1 ea DAILY ORAL 12/21/19 18:00 01/20/20 17:59 01/03/20 09:28 Phosphorus (Phospha 250 Neutral) 500 mg THREE TIMES A DAY ORAL 12/31/19 09:00 01/29/20 09:29 01/03/20 09:14 Polyethylene Glycol (Miralax) 17 gm DAILYPRN PRN ORAL Constipation 12/19/19 19:00 01/18/20 18:59 12/29/19 05:14 Potassium Chloride (K-Dur) 40 meq TID ORAL 01/02/20 09:00 03/28/20 12:59 01/03/20 09:14 Laboratory Tests 01/03/20 07:20: White Blood Count 15.8H, Red Blood Count 3.21L, Hemoglobin 9.5L, Hematocrit 30.2L, Mean Corpuscular Volume 94, Mean Corpuscular Hemoglobin 29.7, Mean Corpuscular Hemoglobin Concent 31.6L, Red Cell Distribution Width 15.8H, Platelet Count 321, Mean Platelet Volume 6.1L, Neutrophils (%) (Auto) 81.8H, Lymphocytes (%) (Auto) 9.1L, Monocytes (%) (Auto) 7.4, Eosinophils (%) (Auto) 1.4, Basophils (%) (Auto) 0.4, Sodium Level 137, Potassium Level 3.8, Chloride Level 104, Carbon Dioxide Level 27, Anion Gap 6, Blood Urea Nitrogen 14, Creatinine 0.9, Estimat Glomerular Filtration Rate > 60, Glucose Level 98, Calcium Level 7.7L, Phosphorus Level 2.8, Magnesium Level 1.8, Total Bilirubin 0.3, Aspartate Amino Transf (AST/SGOT) 23, Alanine Aminotransferase (ALT/SGPT) 29, Alkaline Phosphatase 74, Total Protein 5.7L, Albumin 1.9L, Globulin 3.8, Albumin/Globulin Ratio 0.5L Height (Feet): 5 Height (Inches): 6.00 Weight (Pounds): 132 General Appearance: no apparent distress Objective No change Keaton Doran MD Jan 03, 2020 12:27
--- NOTE | 2020-01-03 12:46 | Urology Progress Note ---
Assessment/Plan Assessment/Plan: 1. History of urethral cancer, status post chemo and immunotherapy and radiation with previous debridement. 2. Urinary retention and a chronic suprapubic tube. 3. Probable neurogenic bladder. 4. UTI and colonization. 5. Hematuria. 6. Proteinuria. 7. Mild acute kidney injury. monitor clinically maintain SPT, last exchanged 12/25 hand irrigated and do PRN abx as ordered local wound care debridement PRN Subjective Allergies: Coded Allergies: CODEINE (Verified Allergy, Unknown, 02/05/10) Subjective all noted, more confused new SPT draining ok Objective Last 24 Hour Vital Signs Date Time Temp Pulse Resp B/P (MAP) Pulse Ox O2 Delivery O2 Flow Rate FiO2 01/03/20 12:05 99.4 82 18 107/64 (78) 96 01/03/20 09:00 Room Air 01/03/20 08:00 97.2 72 18 99/57 (71) 93 01/03/20 04:00 98.5 76 17 110/64 (79) 97 01/03/20 00:00 98.5 83 18 116/65 (82) 98 01/02/20 21:00 Room Air 01/02/20 20:00 98.3 79 17 99/59 (72) 98 01/02/20 16:00 98.2 84 18 99/56 (70) 96 Intake and Output 01/02/20 01/03/20 19:00 07:00 Intake Total 530 ml 550 ml Output Total 1400 ml 1350 ml Balance -870 ml -800 ml Intake Oral 480 ml IV Total 50 ml 550 ml Output Urine Total 1400 ml 1350 ml # Voids 1 Microbiology Date/Time Source Procedure Growth Status 12/28/19 21:30 Urine,Clean Catch Urine Culture - Final NO GROWTH AFTER 48 HOURS Complete 12/21/19 16:45 Penis Gram Stain - Final Complete 12/21/19 16:45 Wound Culture - Final Pseudomonas Aeruginosa Escherichia Coli - Esbl Enterococcus Gallinarum Complete 12/20/19 10:20 Rectal Mucosa - Final NO CARBAPENEM-RESISTANT ENTEROBACTERI... Complete 12/19/19 16:25 Blood Blood Culture - Final NO GROWTH AFTER 5 DAYS Complete Current Medications Medications (Trade) Dose Ordered Sig/Virginie Route PRN Reason Start Time Stop Time Status Last Admin Dose Admin Acetaminophen (Tylenol) 650 mg Q4H PRN ORAL fever 12/19/19 19:00 01/18/20 18:59 01/01/20 13:29 Acetaminophen/ Hydrocodone Bitart ([place] 10/325) 1 tab Q4H PRN ORAL Moderate Pain (Pain Scale 4-6) 01/01/20 15:15 01/08/20 15:14 01/02/20 16:51 Acetaminophen/ Hydrocodone Bitart ([place] 10/325) 2 tab Q4H PRN ORAL Severe Pain (Pain Scale 7-10) 01/01/20 15:15 01/08/20 15:14 01/03/20 04:23 Daptomycin 250 mg/ Sodium Chloride 55 ml @ 100 mls/hr Q24H IV 12/24/19 16:00 01/06/20 23:59 01/02/20 16:23 Dextrose (Dextrose 50%) 25 ml Q30M PRN IV Hypoglycemia 12/19/19 19:00 03/18/20 18:59 Dextrose (Dextrose 50%) 50 ml Q30M PRN IV Hypoglycemia 12/19/19 19:00 03/18/20 18:59 Folic Acid (Folate) 2 mg DAILY ORAL 12/29/19 13:00 01/28/20 12:59 01/03/20 09:14 Gentamicin Protocol (Gentamicin pharmacy to dose) 1 ea DAILY PRN MISC Per rx protocol 12/24/19 13:00 01/23/20 12:59 Gentamicin Sulfate 300 mg/ Sodium Chloride 117.5 ml @ 117.5 mls/ hr Q24H IVPB 01/01/20 04:00 01/08/20 03:59 01/03/20 04:22 Heparin Sodium (Porcine) (Heparin 5000 units/ml) 5,000 units EVERY 12 HOURS SUBQ 12/19/19 21:00 02/02/20 20:59 01/03/20 09:25 Meropenem 2 gm/ Sodium Chloride 100 ml @ 200 mls/hr Q8HR IVPB 12/26/19 14:00 01/06/20 23:59 01/03/20 06:48 Ondansetron HCl (Zofran) 4 mg Q6H PRN IVP Nausea & Vomiting 12/19/19 19:00 01/18/20 18:59 Patient Own Medication (Patient's Own Med) 1 ea DAILY ORAL 12/21/19 18:00 01/20/20 17:59 01/03/20 09:28 Phosphorus (Phospha 250 Neutral) 500 mg BID ORAL 01/03/20 18:00 01/29/20 09:29 Polyethylene Glycol (Miralax) 17 gm DAILYPRN PRN ORAL Constipation 12/19/19 19:00 01/18/20 18:59 12/29/19 05:14 Potassium Chloride (K-Dur) 40 meq BID ORAL 01/03/20 18:00 03/28/20 12:59 Laboratory Tests 01/03/20 07:20: White Blood Count 15.8H, Red Blood Count 3.21L, Hemoglobin 9.5L, Hematocrit 30.2L, Mean Corpuscular Volume 94, Mean Corpuscular Hemoglobin 29.7, Mean Corpuscular Hemoglobin Concent 31.6L, Red Cell Distribution Width 15.8H, Platelet Count 321, Mean Platelet Volume 6.1L, Neutrophils (%) (Auto) 81.8H, Lymphocytes (%) (Auto) 9.1L, Monocytes (%) (Auto) 7.4, Eosinophils (%) (Auto) 1.4, Basophils (%) (Auto) 0.4, Sodium Level 137, Potassium Level 3.8, Chloride Level 104, Carbon Dioxide Level 27, Anion Gap 6, Blood Urea Nitrogen 14, Creatinine 0.9, Estimat Glomerular Filtration Rate > 60, Glucose Level 98, Calcium Level 7.7L, Phosphorus Level 2.8, Magnesium Level 1.8, Total Bilirubin 0.3, Aspartate Amino Transf (AST/SGOT) 23, Alanine Aminotransferase (ALT/SGPT) 29, Alkaline Phosphatase 74, Total Protein 5.7L, Albumin 1.9L, Globulin 3.8, Albumin/Globulin Ratio 0.5L Height (Feet): 5 Height (Inches): 6.00 Weight (Pounds): 132 Objective exam stable granulation tissue Chas Larsen MD Jan 03, 2020 12:46
--- NOTE | 2020-01-03 15:12 | Internal Med Progress Note ---
Subjective Date of Service: Jan 03, 2020 Physician Name Javier Martel Attending Physician Ron Enriquez MD Current Medications Medications (Trade) Dose Ordered Sig/Virginie Route PRN Reason Start Time Stop Time Status Last Admin Dose Admin Acetaminophen (Tylenol) 650 mg Q4H PRN ORAL fever 12/19/19 19:00 01/18/20 18:59 01/01/20 13:29 Acetaminophen/ Hydrocodone Bitart ([place] 10/325) 1 tab Q4H PRN ORAL Moderate Pain (Pain Scale 4-6) 01/01/20 15:15 01/08/20 15:14 01/02/20 16:51 Acetaminophen/ Hydrocodone Bitart ([place] 10/325) 2 tab Q4H PRN ORAL Severe Pain (Pain Scale 7-10) 01/01/20 15:15 01/08/20 15:14 01/03/20 04:23 Daptomycin 250 mg/ Sodium Chloride 55 ml @ 100 mls/hr Q24H IV 12/24/19 16:00 01/06/20 23:59 01/02/20 16:23 Dextrose (Dextrose 50%) 25 ml Q30M PRN IV Hypoglycemia 12/19/19 19:00 03/18/20 18:59 Dextrose (Dextrose 50%) 50 ml Q30M PRN IV Hypoglycemia 12/19/19 19:00 03/18/20 18:59 Folic Acid (Folate) 2 mg DAILY ORAL 12/29/19 13:00 01/28/20 12:59 01/03/20 09:14 Gentamicin Protocol (Gentamicin pharmacy to dose) 1 ea DAILY PRN MISC Per rx protocol 12/24/19 13:00 01/23/20 12:59 Gentamicin Sulfate 300 mg/ Sodium Chloride 117.5 ml @ 117.5 mls/ hr Q24H IVPB 01/01/20 04:00 01/08/20 03:59 01/03/20 04:22 Heparin Sodium (Porcine) (Heparin 5000 units/ml) 5,000 units EVERY 12 HOURS SUBQ 12/19/19 21:00 02/02/20 20:59 01/03/20 09:25 Meropenem 2 gm/ Sodium Chloride 100 ml @ 200 mls/hr Q8HR IVPB 12/26/19 14:00 01/06/20 23:59 01/03/20 14:14 Ondansetron HCl (Zofran) 4 mg Q6H PRN IVP Nausea & Vomiting 12/19/19 19:00 01/18/20 18:59 Patient Own Medication (Patient's Own Med) 1 ea DAILY ORAL 12/21/19 18:00 01/20/20 17:59 01/03/20 09:28 Phosphorus (Phospha 250 Neutral) 500 mg BID ORAL 01/03/20 18:00 01/29/20 09:29 Polyethylene Glycol (Miralax) 17 gm DAILYPRN PRN ORAL Constipation 12/19/19 19:00 01/18/20 18:59 12/29/19 05:14 Potassium Chloride (K-Dur) 40 meq BID ORAL 01/03/20 18:00 03/28/20 12:59 Allergies: Coded Allergies: CODEINE (Verified Allergy, Unknown, 02/05/10) ROS Limited/Unobtainable: No Constitutional: Reports: no symptoms HEENT: Reports: no symptoms Cardiovascular: Reports: no symptoms Respiratory: Reports: no symptoms Gastrointestinal/Abdominal: Reports: no symptoms Genitourinary: Reports: no symptoms Neurologic/Psychiatric: Reports: no symptoms Subjective 59 YO M with H/O urethral cancer admitted with Penile abscess and UTI. Cover for Int Med-Dr Enriquez. S/P bedside debridement 12/23/19 Objective Last Vital Signs Date Time Temp Pulse Resp B/P (MAP) Pulse Ox O2 Delivery O2 Flow Rate FiO2 01/03/20 12:05 99.4 82 18 107/64 (78) 96 01/03/20 09:00 Room Air 12/31/19 14:39 21 Laboratory Tests Test 01/03/20 07:20 White Blood Count 15.8 K/UL (4.8-10.8) H Red Blood Count 3.21 M/UL (4.70-6.10) L Hemoglobin 9.5 G/DL (14.2-18.0) L Hematocrit 30.2 % (42.0-52.0) L Mean Corpuscular Volume 94 FL (80-99) Mean Corpuscular Hemoglobin 29.7 PG (27.0-31.0) Mean Corpuscular Hemoglobin Concent 31.6 G/DL (32.0-36.0) L Red Cell Distribution Width 15.8 % (11.6-14.8) H Platelet Count 321 K/UL (150-450) Mean Platelet Volume 6.1 FL (6.5-10.1) L Neutrophils (%) (Auto) 81.8 % (45.0-75.0) H Lymphocytes (%) (Auto) 9.1 % (20.0-45.0) L Monocytes (%) (Auto) 7.4 % (1.0-10.0) Eosinophils (%) (Auto) 1.4 % (0.0-3.0) Basophils (%) (Auto) 0.4 % (0.0-2.0) Sodium Level 137 MMOL/L (136-145) Potassium Level 3.8 MMOL/L (3.5-5.1) Chloride Level 104 MMOL/L (98-107) Carbon Dioxide Level 27 MMOL/L (21-32) Anion Gap 6 mmol/L (5-15) Blood Urea Nitrogen 14 mg/dL (7-18) Creatinine 0.9 MG/DL (0.55-1.30) Estimat Glomerular Filtration Rate > 60 mL/min (>60) Glucose Level 98 MG/DL (74-106) Calcium Level 7.7 MG/DL (8.5-10.1) L Phosphorus Level 2.8 MG/DL (2.5-4.9) Magnesium Level 1.8 MG/DL (1.8-2.4) Total Bilirubin 0.3 MG/DL (0.2-1.0) Aspartate Amino Transf (AST/SGOT) 23 U/L (15-37) Alanine Aminotransferase (ALT/SGPT) 29 U/L (12-78) Alkaline Phosphatase 74 U/L (46-116) Total Protein 5.7 G/DL (6.4-8.2) L Albumin 1.9 G/DL (3.4-5.0) L Globulin 3.8 g/dL Albumin/Globulin Ratio 0.5 (1.0-2.7) L Intake and Output 01/02/20 01/03/20 19:00 07:00 Intake Total 530 ml 550 ml Output Total 1400 ml 1350 ml Balance -870 ml -800 ml Intake Oral 480 ml IV Total 50 ml 550 ml Output Urine Total 1400 ml 1350 ml # Voids 1 Objective PHYSICAL EXAMINATION: GENERAL: The patient is a well-developed and well-nourished male, in no apparent distress. HEENT: Eyes, pupils equal and responsive to light and accommodation. Extraocular movements are intact. NECK: Supple without lymphadenopathy. CHEST: Lungs are clear to auscultation bilaterally without wheezes or rales. CARDIOVASCULAR: Regular rate. S1, S2 are normal without murmurs, rubs, or gallops. ABDOMEN: Soft, nontender, and nondistended. Positive bowel sounds. No evidence of hepatosplenomegaly. Currently, no rebound or guarding noted. EXTREMITIES: Negative for clubbing, cyanosis, or edema. RECTAL AND GENITAL: There is a large fungating mass over the penile and scrotal region. There is foul odor. NEUROLOGICAL: Cranial nerves II through XII are grossly intact without focal deficits. Motor strength is 5/5 bilaterally intact. Deep tendon reflexes are 2+, plantar. Assessment/Plan Assessment/Plan ASSESSMENT: This is a 59-year-old male with: 1. Urinary tract infection=ESBL Enterobacter cloacae 2. Penile abscess. 3. HIV. 4. Urethral cancer. 5. Hypercalcemia-improving TREATMENT: 1. Urinary tract infection/penile abscess/necrotic tissue Antibiotics=meropenem, daptomycin and gentamicin- completion date= 01/06/20 Infectious Disease consulltation = Dr. Rider. 2. HIV. Continue Symtuza as above. 3. Penile/urethral cancer. Oncology consultation = Dr. Mandeep Horta. Urology consultation = Dr. Chsa Larsen. 4. S/P bedside debridement; recommend debridement in OR per surgery 5. Nephrology=Dr Doran. PTH decreased. Continue pamidronate, calcitonin and lasix Javier Martel MD Jan 03, 2020 15:12
[2020-01-03 16:00] VITALS: BP 112/62
[2020-01-03] MEDS: DAPTOmycin 250 MG in NS 55 ML IV SCH (16:19)
--- NOTE | 2020-01-03 17:44 | Surgery Progress Note ---
Surgery Progress Note Subjective Additional Comments still confused no n/v comfortable no complaints Objective Last 24 Hour Vital Signs Date Time Temp Pulse Resp B/P (MAP) Pulse Ox O2 Delivery O2 Flow Rate FiO2 01/03/20 16:00 99.0 87 20 112/62 (79) 96 01/03/20 12:05 99.4 82 18 107/64 (78) 96 01/03/20 09:00 Room Air 01/03/20 08:00 97.2 72 18 99/57 (71) 93 01/03/20 04:00 98.5 76 17 110/64 (79) 97 01/03/20 00:00 98.5 83 18 116/65 (82) 98 01/02/20 21:00 Room Air 01/02/20 20:00 98.3 79 17 99/59 (72) 98 I&O Intake and Output 01/02/20 01/03/20 19:00 07:00 Intake Total 530 ml 550 ml Output Total 1400 ml 1350 ml Balance -870 ml -800 ml Intake Oral 480 ml IV Total 50 ml 550 ml Output Urine Total 1400 ml 1350 ml # Voids 1 Dressing: saturated Cardiovascular: RSR Respiratory: decreased breath sounds Abdomen: non-tender, present bowel sounds, non-distended Extremities: no edema, no tenderness, no cyanosis Laboratory Tests Test 01/03/20 07:20 White Blood Count 15.8 K/UL (4.8-10.8) H Red Blood Count 3.21 M/UL (4.70-6.10) L Hemoglobin 9.5 G/DL (14.2-18.0) L Hematocrit 30.2 % (42.0-52.0) L Mean Corpuscular Volume 94 FL (80-99) Mean Corpuscular Hemoglobin 29.7 PG (27.0-31.0) Mean Corpuscular Hemoglobin Concent 31.6 G/DL (32.0-36.0) L Red Cell Distribution Width 15.8 % (11.6-14.8) H Platelet Count 321 K/UL (150-450) Mean Platelet Volume 6.1 FL (6.5-10.1) L Neutrophils (%) (Auto) 81.8 % (45.0-75.0) H Lymphocytes (%) (Auto) 9.1 % (20.0-45.0) L Monocytes (%) (Auto) 7.4 % (1.0-10.0) Eosinophils (%) (Auto) 1.4 % (0.0-3.0) Basophils (%) (Auto) 0.4 % (0.0-2.0) Sodium Level 137 MMOL/L (136-145) Potassium Level 3.8 MMOL/L (3.5-5.1) Chloride Level 104 MMOL/L (98-107) Carbon Dioxide Level 27 MMOL/L (21-32) Anion Gap 6 mmol/L (5-15) Blood Urea Nitrogen 14 mg/dL (7-18) Creatinine 0.9 MG/DL (0.55-1.30) Estimat Glomerular Filtration Rate > 60 mL/min (>60) Glucose Level 98 MG/DL (74-106) Calcium Level 7.7 MG/DL (8.5-10.1) L Phosphorus Level 2.8 MG/DL (2.5-4.9) Magnesium Level 1.8 MG/DL (1.8-2.4) Total Bilirubin 0.3 MG/DL (0.2-1.0) Aspartate Amino Transf (AST/SGOT) 23 U/L (15-37) Alanine Aminotransferase (ALT/SGPT) 29 U/L (12-78) Alkaline Phosphatase 74 U/L (46-116) Total Protein 5.7 G/DL (6.4-8.2) L Albumin 1.9 G/DL (3.4-5.0) L Globulin 3.8 g/dL Albumin/Globulin Ratio 0.5 (1.0-2.7) L Plan Problems: (1) Penile abscess Assessment & Plan: 61-year-old male with known urethral cancer status post chemoradiation presented with worsening wound necrosis and potential infection of the site. Patient seen prior penis necrosis falling off now remaining soft tissue in the malignancy region also with necrotic nonviable tissue identified. Drainage is serosanguineous at times sometimes serious and does not seem significant purulent. The cellulitis is minimal. Patient's labs noted. Given patient's history condition immunocompromise status recommend IV antibiotics. I discussed the patient and considerations for debriding some of the nonviable tissue though this will not in any way improve his cancer stated could help with local wound care. Patient expressed understanding we will continue to follow with local care and provide as necessary. No drainage of abscess identified at this time we will monitor thank you f/u with primary onc as per heme labs noted on rx wounds and slough/necrotic tissue debridement at bedside penis is fully necrotic and hanging off. will discuss consideration of operative debridement including penis. not recommended at bedside given likely bleeding with debridement. does not want further debridement at this time states feels much better wound less foul odor after last clean ing d/c planning (2) Urethral cancer (3) Abscess (4) Sepsis (5) Catheter-associated urinary tract infection Romain Li Jan 03, 2020 17:44
--- NOTE | 2020-01-03 19:27 | NUR ---
NURSE HAND-OFF: Important Events on Shift:[wound care treatment; repositioned; kept clean and comfortable; tolerated food intake well] Patient Status: [no significant changed] Diet: [re with ensure] Pending Orders: [labs] Pending Results/Labs:in am[] Pending MD notification:[] Latest Vital Signs: Temperature 99.0 , Pulse 87 , B/P 112 /62 , Respiratory Rate 20 , O2 SAT 96 , Room Air, O2 Flow Rate 5.0 . Vital Sign Comment: [] Latest Rahman Fall Score: 35 Fall Risk: Medium Risk Safety Measures: Call light Within Reach, Bed Alarm Zone 2, Side Rails Side Rails x3, Bed position Low and Locked. Fall Precautions: Yellow Socks Patient Fall Education Report given to [macho].
--- NOTE | 2020-01-03 19:39 | NUR ---
NURSE NOTES: Patient awake in bed, on room air, with complaint of moderate pain. Will medicate as ordered. Instructed to use call light. Call light and needs in reach. Bed in lowest, lock engaged and alarm on. Will continue plan of care.
[2020-01-03 20:00] VITALS: BP 103/64
[2020-01-04] VITALS: BP 90/57
[2020-01-04] MEDS: Gentamicin inj 300 MG in NS 110 ML IVPB SCH (03:38)
[2020-01-04 04:00] VITALS: BP 104/63
[2020-01-04] MEDS: HYDROcodone/Acetamin 10/325 tab ORAL PRN ×2 (04:37→14:40)
[2020-01-04 06:50] LABS: BASOPHILS % (AUTO) 0.4 % (0.0-2.0); EOSINOPHILS % (AUTO) 1.1 % (0.0-3.0); HEMATOCRIT 27.1 % (42.0-52.0); HEMOGLOBIN 9.3 G/DL (14.2-18.0); LYMPHOCYTES % (AUTO) 10.5 % (20.0-45.0); MEAN CORPUSCULAR VOLUME 95 FL (80-99); MONOCYTES % (AUTO) 6.2 % (1.0-10.0); NEUTROPHILS % (AUTO) 81.8 % (45.0-75.0); PLATELET COUNT 312 K/UL (150-450); RED BLOOD COUNT 2.84 M/UL (4.70-6.10); RED CELL DISTRIBUTION WIDTH 17.6 % (11.6-14.8); WHITE BLOOD COUNT 14.5 K/UL (4.8-10.8)
--- NOTE | 2020-01-04 06:53 | Hematology/Onc Progress Note ---
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 Leonard at [facility], per patient is his med onc --> dw 12/21 Dr. Leonard [facility] further f/u --> labs have been reviewed, hold off on tumor markers --> has been seen by Dr. Larsen here and recs noted debridement at some point --> 12/22 s/p debridement at bedside # Leukocytosis likely due to Penile abscess --> requires abx as per id vanc/flagyl/cefepime-->vanc/chelsea-->chelsea/dap/gent --> wbc 13-->14-->13--.12.4-->16-->16.6-->18 # HYpercalcemia --> Ca+ 14.6-->13.2 --> repeat as needed --> ivf, lasix, calcitonin per renal, pamidronate --> per renal # Anemia likely chronic disease v other cause --> hgb 12-->11->10 # Urinary retention with chronic suprapubic tube. --> per uro, surg care # Probable neurogenic bladder. # Urinary tract infection and colonization. # Hematuria. --> improved # Dvt ppx --> hep sq Appreciate consultation and dw RN Subjective HEENT: Denies: no symptoms, eye pain, blurred vision, tearing, double vision, ear pain, ear discharge, nose pain, nose congestion, throat pain, throat swelling, mouth pain, mouth swelling, other Cardiovascular: Denies: no symptoms, chest pain, edema, irregular heart rate, lightheadedness, palpitations, syncope, other Respiratory: Denies: no symptoms, cough, shortness of breath, SOB with excertion, SOB at rest, sputum, wheezing, other Genitourinary: Denies: no symptoms, burning, discharge, frequency, flank pain, hematuria, incontinence, pain, urgency, other Neurologic/Psychiatric: Denies: no symptoms, anxiety, depressed, emotional problems, headache, numbness, paresthesia, pre-existing deficit, seizure, tingling, tremors, weakness, other Endocrine: Denies: no symptoms, excessive sweating, flushing, intolerance to cold, intolerance to heat, increased hunger, increased thirst, increased urine, unexplained weight gain, unexplained weight loss, other Hematologic/Lymphatic: Denies: no symptoms, anemia, easy bleeding, easy bruising, adenopathy, other Allergies: Coded Allergies: CODEINE (Verified Allergy, Unknown, 02/05/10) Subjective 12/21 is on abx vanc/flagyl, cefepime, on hep, suprapub catheter functional 12/22 no major events, debridement at some pt, dw Dr. Leonard yesterday [facility] 12/23 underwent bedside debridement yesterday, feeling better, dressing in place 12/24 meds reviewed, meds noted, no bleeding, dw rn 12/26 on chelsea, dapto, gent, no bleeding, meds noted, labs reviewed 12/27 wound care, dressing changes, labs reviewed, no bleeding 12/28 labs pending, meds reviewed, no bleeding or night sweats 12/29 labs reviewed, meds ntoed, with elev wbc, on abx 12/30 labs reviewed, wbc is elevated, abx, does not want a new iv line 12/31 labs reviewed, meds noted, Ca++ high, no night sweats or bleeding 01/02 asleep, no bleeding, or night sweats, CA++ imrpoved 01/03 labs noted, no bleeding, does not want debridement Objective Objective Current Medications Medications (Trade) Dose Ordered Sig/Virginie Route PRN Reason Start Time Stop Time Status Last Admin Dose Admin Acetaminophen (Tylenol) 650 mg Q4H PRN ORAL fever 12/19/19 19:00 01/18/20 18:59 01/01/20 13:29 Acetaminophen/ Hydrocodone Bitart ([place] 10/325) 1 tab Q4H PRN ORAL Moderate Pain (Pain Scale 4-6) 01/01/20 15:15 01/08/20 15:14 01/04/20 04:37 Acetaminophen/ Hydrocodone Bitart ([place] 10/325) 2 tab Q4H PRN ORAL Severe Pain (Pain Scale 7-10) 01/01/20 15:15 01/08/20 15:14 01/03/20 20:56 Daptomycin 250 mg/ Sodium Chloride 55 ml @ 100 mls/hr Q24H IV 12/24/19 16:00 01/06/20 23:59 01/03/20 16:19 Dextrose (Dextrose 50%) 25 ml Q30M PRN IV Hypoglycemia 12/19/19 19:00 03/18/20 18:59 Dextrose (Dextrose 50%) 50 ml Q30M PRN IV Hypoglycemia 12/19/19 19:00 03/18/20 18:59 Folic Acid (Folate) 2 mg DAILY ORAL 12/29/19 13:00 01/28/20 12:59 01/03/20 09:14 Gentamicin Protocol (Gentamicin pharmacy to dose) 1 ea DAILY PRN MISC Per rx protocol 12/24/19 13:00 01/23/20 12:59 Gentamicin Sulfate 300 mg/ Sodium Chloride 117.5 ml @ 117.5 mls/ hr Q24H IVPB 01/01/20 04:00 01/08/20 03:59 01/04/20 03:38 Heparin Sodium (Porcine) (Heparin 5000 units/ml) 5,000 units EVERY 12 HOURS SUBQ 12/19/19 21:00 02/02/20 20:59 01/03/20 21:03 Meropenem 2 gm/ Sodium Chloride 100 ml @ 200 mls/hr Q8HR IVPB 12/26/19 14:00 01/06/20 23:59 01/04/20 05:25 Ondansetron HCl (Zofran) 4 mg Q6H PRN IVP Nausea & Vomiting 12/19/19 19:00 01/18/20 18:59 Patient Own Medication (Patient's Own Med) 1 ea DAILY ORAL 12/21/19 18:00 01/20/20 17:59 01/03/20 09:28 Phosphorus (Phospha 250 Neutral) 500 mg BID ORAL 01/03/20 18:00 01/29/20 09:29 01/03/20 17:20 Polyethylene Glycol (Miralax) 17 gm DAILYPRN PRN ORAL Constipation 12/19/19 19:00 01/18/20 18:59 12/29/19 05:14 Potassium Chloride (K-Dur) 40 meq BID ORAL 01/03/20 18:00 03/28/20 12:59 01/03/20 17:21 Last 24 Hour Vital Signs Date Time Temp Pulse Resp B/P (MAP) Pulse Ox O2 Delivery O2 Flow Rate FiO2 01/04/20 04:00 98.1 86 20 104/63 (77) 97 01/04/20 00:00 98.2 76 16 90/57 (68) 94 01/03/20 21:00 Room Air 01/03/20 20:00 99.9 89 22 103/64 (77) 94 01/03/20 16:00 99.0 87 20 112/62 (79) 96 01/03/20 12:05 99.4 82 18 107/64 (78) 96 01/03/20 09:00 Room Air 01/03/20 08:00 97.2 72 18 99/57 (71) 93 01/03/20 04:00 98.5 76 17 110/64 (79) 97 01/03/20 00:00 98.5 83 18 116/65 (82) 98 01/02/20 21:00 Room Air 01/02/20 20:00 98.3 79 17 99/59 (72) 98 01/02/20 16:00 98.2 84 18 99/56 (70) 96 01/02/20 12:00 98.1 73 18 99/57 (71) 89 01/02/20 09:00 Room Air 01/02/20 08:00 97.7 71 17 96/54 (68) 100 Intake and Output 01/03/20 01/04/20 19:00 07:00 Intake Total 1100 ml 517.5 ml Output Total 1400 ml 1300 ml Balance -300 ml -782.5 ml Intake Oral 600 ml 200 ml IV Total 500 ml 317.5 ml Output Urine Total 1400 ml 1300 ml # Bowel Movements 1 Labs Test 01/02/20 06:10 01/03/20 07:20 01/04/20 05:35 White Blood Count 16.6 K/UL (4.8-10.8) 15.8 K/UL (4.8-10.8) Red Blood Count 2.94 M/UL (4.70-6.10) 3.21 M/UL (4.70-6.10) Hemoglobin 9.5 G/DL (14.2-18.0) 9.5 G/DL (14.2-18.0) Hematocrit 28.2 % (42.0-52.0) 30.2 % (42.0-52.0) Mean Corpuscular Volume 96 FL (80-99) 94 FL (80-99) Mean Corpuscular Hemoglobin 32.4 PG (27.0-31.0) 29.7 PG (27.0-31.0) Mean Corpuscular Hemoglobin Concent 33.8 G/DL (32.0-36.0) 31.6 G/DL (32.0-36.0) Red Cell Distribution Width 17.8 % (11.6-14.8) 15.8 % (11.6-14.8) Platelet Count 310 K/UL (150-450) 321 K/UL (150-450) Mean Platelet Volume 5.6 FL (6.5-10.1) 6.1 FL (6.5-10.1) Neutrophils (%) (Auto) 81.8 % (45.0-75.0) 81.8 % (45.0-75.0) Lymphocytes (%) (Auto) 10.9 % (20.0-45.0) 9.1 % (20.0-45.0) Monocytes (%) (Auto) 5.6 % (1.0-10.0) 7.4 % (1.0-10.0) Eosinophils (%) (Auto) 1.2 % (0.0-3.0) 1.4 % (0.0-3.0) Basophils (%) (Auto) 0.5 % (0.0-2.0) 0.4 % (0.0-2.0) Sodium Level 138 MMOL/L (136-145) 137 MMOL/L (136-145) Potassium Level 3.1 MMOL/L (3.5-5.1) 3.8 MMOL/L (3.5-5.1) Chloride Level 106 MMOL/L (98-107) 104 MMOL/L (98-107) Carbon Dioxide Level 26 MMOL/L (21-32) 27 MMOL/L (21-32) Anion Gap 7 mmol/L (5-15) 6 mmol/L (5-15) Blood Urea Nitrogen 14 mg/dL (7-18) 14 mg/dL (7-18) Creatinine 0.8 MG/DL (0.55-1.30) 0.9 MG/DL (0.55-1.30) Estimat Glomerular Filtration Rate > 60 mL/min (>60) > 60 mL/min (>60) Glucose Level 92 MG/DL (74-106) 98 MG/DL (74-106) Calcium Level 8.4 MG/DL (8.5-10.1) 7.7 MG/DL (8.5-10.1) Phosphorus Level 2.9 MG/DL (2.5-4.9) 2.8 MG/DL (2.5-4.9) Magnesium Level 1.7 MG/DL (1.8-2.4) 1.8 MG/DL (1.8-2.4) Total Bilirubin 0.4 MG/DL (0.2-1.0) 0.3 MG/DL (0.2-1.0) Aspartate Amino Transf (AST/SGOT) 27 U/L (15-37) 23 U/L (15-37) Alanine Aminotransferase (ALT/SGPT) 38 U/L (12-78) 29 U/L (12-78) Alkaline Phosphatase 70 U/L (46-116) 74 U/L (46-116) Total Protein 6.2 G/DL (6.4-8.2) 5.7 G/DL (6.4-8.2) Albumin 1.9 G/DL (3.4-5.0) 1.9 G/DL (3.4-5.0) Globulin 4.3 g/dL 3.8 g/dL Albumin/Globulin Ratio 0.4 (1.0-2.7) 0.5 (1.0-2.7) Height (Feet): 5 Height (Inches): 6.00 Weight (Pounds): 132 Objective Physical Exam Sp02 EP Interpretation: reviewed, normal General: no apparent distress, Chronically Ill Heent: normocephalic, atraumatic Respiratory: lungs clear, normal breath sounds Cardiovascular: normal peripheral pulses, regular rate Gastrointestinal: non tender, soft, non-distended, no guarding Genitourinary: other - Large area of necrosis noted in the genital region with purulent discharge, ++suprapub catheter Neurologic: alert, oriented x3 Skin: normal color, warm/dry Mandeep Horta MD Jan 04, 2020 06:53
--- NOTE | 2020-01-04 06:58 | NUR ---
NURSE HAND-OFF: Important Events on Shift: pain mgt, dressing changed Patient Status: Diet: regular Pending Orders: Pending Results/Labs: Pending MD notification: Latest Vital Signs: Temperature 98.1 , Pulse 86 , B/P 104 /63 , Respiratory Rate 20 , O2 SAT 97 , Room Air, O2 Flow Rate 5.0 . Vital Sign Comment: Latest Rahman Fall Score: 35 Fall Risk: Medium Risk Safety Measures: Call light Within Reach, Bed Alarm Zone 2, Side Rails Side Rails x3, Bed position Low and Locked. Fall Precautions: Yellow Socks Patient Fall Education
[2020-01-04 07:03] LABS: ALANINE AMINOTRANSFERASE 24 U/L (12-78); ALBUMIN 1.8 G/DL (3.4-5.0); ALBUMIN/GLOBULIN RATIO 0.4 (1.0-2.7); ALKALINE PHOSPHATASE 82 U/L (46-116); ANION GAP 8 mmol/L (5-15); ASPARTATE AMINO TRANSFERASE 23 U/L (15-37); BILIRUBIN,TOTAL 0.4 MG/DL (0.2-1.0); BLOOD UREA NITROGEN 14 mg/dL (7-18); CALCIUM 7.7 MG/DL (8.5-10.1); CARBON DIOXIDE 24 MMOL/L (21-32); CHLORIDE 103 MMOL/L (98-107); CREATININE 0.8 MG/DL (0.55-1.30); PHOSPHORUS 2.2 MG/DL (2.5-4.9); POTASSIUM 3.7 MMOL/L (3.5-5.1); SODIUM 135 MMOL/L (136-145)
--- NOTE | 2020-01-04 07:36 | Urology Progress Note ---
Assessment/Plan Assessment/Plan: 1. History of urethral cancer, status post chemo and immunotherapy and radiation with previous debridement. 2. Urinary retention and a chronic suprapubic tube. 3. Probable neurogenic bladder. 4. UTI and colonization. 5. Hematuria. 6. Proteinuria. 7. Mild acute kidney injury. monitor clinically maintain SPT, last exchanged 12/25 hand irrigated and do PRN abx as ordered local wound care debridement PRN Subjective Allergies: Coded Allergies: CODEINE (Verified Allergy, Unknown, 02/05/10) Subjective all noted, more confused new SPT draining ok Objective Last 24 Hour Vital Signs Date Time Temp Pulse Resp B/P (MAP) Pulse Ox O2 Delivery O2 Flow Rate FiO2 01/04/20 04:00 98.1 86 20 104/63 (77) 97 01/04/20 00:00 98.2 76 16 90/57 (68) 94 01/03/20 21:00 Room Air 01/03/20 20:00 99.9 89 22 103/64 (77) 94 01/03/20 16:00 99.0 87 20 112/62 (79) 96 01/03/20 12:05 99.4 82 18 107/64 (78) 96 01/03/20 09:00 Room Air 01/03/20 08:00 97.2 72 18 99/57 (71) 93 Intake and Output 01/03/20 01/04/20 19:00 07:00 Intake Total 1100 ml 517.5 ml Output Total 1400 ml 1300 ml Balance -300 ml -782.5 ml Intake Oral 600 ml 200 ml IV Total 500 ml 317.5 ml Output Urine Total 1400 ml 1300 ml # Bowel Movements 1 Microbiology Date/Time Source Procedure Growth Status 12/28/19 21:30 Urine,Clean Catch Urine Culture - Final NO GROWTH AFTER 48 HOURS Complete 12/21/19 16:45 Penis Gram Stain - Final Complete 12/21/19 16:45 Wound Culture - Final Pseudomonas Aeruginosa Escherichia Coli - Esbl Enterococcus Gallinarum Complete 12/20/19 10:20 Rectal Mucosa - Final NO CARBAPENEM-RESISTANT ENTEROBACTERI... Complete 12/19/19 16:25 Blood Blood Culture - Final NO GROWTH AFTER 5 DAYS Complete Current Medications Medications (Trade) Dose Ordered Sig/Virginie Route PRN Reason Start Time Stop Time Status Last Admin Dose Admin Acetaminophen (Tylenol) 650 mg Q4H PRN ORAL fever 12/19/19 19:00 01/18/20 18:59 01/01/20 13:29 Acetaminophen/ Hydrocodone Bitart ([place] 10/325) 1 tab Q4H PRN ORAL Moderate Pain (Pain Scale 4-6) 01/01/20 15:15 01/08/20 15:14 01/04/20 04:37 Acetaminophen/ Hydrocodone Bitart ([place] 10/325) 2 tab Q4H PRN ORAL Severe Pain (Pain Scale 7-10) 01/01/20 15:15 01/08/20 15:14 01/03/20 20:56 Daptomycin 250 mg/ Sodium Chloride 55 ml @ 100 mls/hr Q24H IV 12/24/19 16:00 01/06/20 23:59 01/03/20 16:19 Dextrose (Dextrose 50%) 25 ml Q30M PRN IV Hypoglycemia 12/19/19 19:00 03/18/20 18:59 Dextrose (Dextrose 50%) 50 ml Q30M PRN IV Hypoglycemia 12/19/19 19:00 03/18/20 18:59 Folic Acid (Folate) 2 mg DAILY ORAL 12/29/19 13:00 01/28/20 12:59 01/03/20 09:14 Gentamicin Protocol (Gentamicin pharmacy to dose) 1 ea DAILY PRN MISC Per rx protocol 12/24/19 13:00 01/23/20 12:59 Gentamicin Sulfate 300 mg/ Sodium Chloride 117.5 ml @ 117.5 mls/ hr Q24H IVPB 01/01/20 04:00 01/08/20 03:59 01/04/20 03:38 Heparin Sodium (Porcine) (Heparin 5000 units/ml) 5,000 units EVERY 12 HOURS SUBQ 12/19/19 21:00 02/02/20 20:59 01/03/20 21:03 Meropenem 2 gm/ Sodium Chloride 100 ml @ 200 mls/hr Q8HR IVPB 12/26/19 14:00 01/06/20 23:59 01/04/20 05:25 Ondansetron HCl (Zofran) 4 mg Q6H PRN IVP Nausea & Vomiting 12/19/19 19:00 01/18/20 18:59 Patient Own Medication (Patient's Own Med) 1 ea DAILY ORAL 11/9/20 18:00 01/20/20 17:59 01/03/20 09:28 Phosphorus (Phospha 250 Neutral) 500 mg BID ORAL 01/03/20 18:00 01/29/20 09:29 01/03/20 17:20 Polyethylene Glycol (Miralax) 17 gm DAILYPRN PRN ORAL Constipation 12/19/19 19:00 01/18/20 18:59 12/29/19 05:14 Potassium Chloride (K-Dur) 40 meq BID ORAL 01/03/20 18:00 03/28/20 12:59 01/03/20 17:21 Laboratory Tests 01/04/20 05:35: White Blood Count [Pending], Red Blood Count [Pending], Hemoglobin [Pending], Hematocrit [Pending], Mean Corpuscular Volume [Pending], Mean Corpuscular Hemoglobin [Pending], Mean Corpuscular Hemoglobin Concent [Pending], Red Cell Distribution Width [Pending], Platelet Count [Pending], Mean Platelet Volume [Pending], Neutrophils (%) (Auto) [Pending], Lymphocytes (%) (Auto) [Pending], Monocytes (%) (Auto) [Pending], Eosinophils (%) (Auto) [Pending], Basophils (%) (Auto) [Pending], Sodium Level 135L, Potassium Level 3.7, Chloride Level 103, Carbon Dioxide Level 24, Anion Gap 8, Blood Urea Nitrogen 14, Creatinine 0.8, Estimat Glomerular Filtration Rate > 60, Glucose Level 103, Calcium Level 7.7L, Phosphorus Level 2.2L, Magnesium Level 1.8, Total Bilirubin 0.4, Aspartate Amino Transf (AST/SGOT) 23, Alanine Aminotransferase (ALT/SGPT) 24, Alkaline Phosphatase 82, Total Protein 6.3L, Albumin 1.8L, Globulin 4.5, Albumin/Globulin Ratio 0.4L Height (Feet): 5 Height (Inches): 6.00 Weight (Pounds): 132 Objective exam stable granulation tissue Chas Larsen MD Jan 04, 2020 07:35
--- NOTE | 2020-01-04 07:38 | NUR ---
HAND-OFF: Report given to Tia.
--- NOTE | 2020-01-04 07:53 | Infectious Diseases Prog Note ---
Assessment/Plan 59yo M with: UTI -u/a wbc 40/6-, nit +, leuk +2; ucx >100k ESBL e. clocae complex -12/27 UCx NTD Penile necrotic wound infection- polymicrobial -wound cx ESBL E.coli, PsA (R levaquin, I Meropenem), E, gallinarum (R vanco, S Amp) Afebrile Leukocytosis, increased Urethral CA dx'ed 2019 sp chemotherapy x 12 sessions and radiation x8 sessions and surgical intervention (follows at [facility]) hx of penile abscess HIV on Symtuza (dx'ed 20 yrs ago) Former smoker (quit 8yrs ago) Recurrent UTI on bactrim ppx Urinary retention sp chronic suprapubic tube SNF resident ([facility]) Plan: Daptomycin #12 / 14 12/31 CK = 45 Meropenem # / for ESBL Gentamycin # / as PsA intermediate to meropenem If no more debridement is planned, would continue IV abx for a total of 14 day course then stop and continue aggressive wound care. End date of all abx to be 01/05 -12/23 SP IV Vancomycin #6 -12/21 SP Cefepime #4, Flagyl #2 -12/18 SP Meropenem x1 -f/u cx -Monitor CBC/CMP, temperatures -wound cx -Uro and Gen sx f/u -wound care per surgical team D/w RN Thank you for consulting [facility]. Will continue to follow along with you. Subjective Allergies: Coded Allergies: CODEINE (Verified Allergy, Unknown, 02/05/10) AF NAD No new complaints, just ongoing pain WBC improving to 14 Objective Last 24 Hour Vital Signs Date Time Temp Pulse Resp B/P (MAP) Pulse Ox O2 Delivery O2 Flow Rate FiO2 01/04/20 04:00 98.1 86 20 104/63 (77) 97 01/04/20 00:00 98.2 76 16 90/57 (68) 94 01/03/20 21:00 Room Air 01/03/20 20:00 99.9 89 22 103/64 (77) 94 01/03/20 16:00 99.0 87 20 112/62 (79) 96 01/03/20 12:05 99.4 82 18 107/64 (78) 96 01/03/20 09:00 Room Air 01/03/20 08:00 97.2 72 18 99/57 (71) 93 Height (Feet): 5 Height (Inches): 6.00 Weight (Pounds): 132 Gen: NAD in bed HEENT: NCAT, EOMI, PERRL CV: RRR Pulm: CTAB on RA Abd: Soft, NTND Ext: No c/c/e : Necrotic penis with swollen base and open wound wo significant discharge or surrounding erythema Neuro: Awake Laboratory Tests Test 01/04/20 05:35 White Blood Count Pending Red Blood Count Pending Hemoglobin Pending Hematocrit Pending Mean Corpuscular Volume Pending Mean Corpuscular Hemoglobin Pending Mean Corpuscular Hemoglobin Concent Pending Red Cell Distribution Width Pending Platelet Count Pending Mean Platelet Volume Pending Neutrophils (%) (Auto) Pending Lymphocytes (%) (Auto) Pending Monocytes (%) (Auto) Pending Eosinophils (%) (Auto) Pending Basophils (%) (Auto) Pending Sodium Level 135 MMOL/L (136-145) L Potassium Level 3.7 MMOL/L (3.5-5.1) Chloride Level 103 MMOL/L (98-107) Carbon Dioxide Level 24 MMOL/L (21-32) Anion Gap 8 mmol/L (5-15) Blood Urea Nitrogen 14 mg/dL (7-18) Creatinine 0.8 MG/DL (0.55-1.30) Estimat Glomerular Filtration Rate > 60 mL/min (>60) Glucose Level 103 MG/DL (74-106) Calcium Level 7.7 MG/DL (8.5-10.1) L Phosphorus Level 2.2 MG/DL (2.5-4.9) L Magnesium Level 1.8 MG/DL (1.8-2.4) Total Bilirubin 0.4 MG/DL (0.2-1.0) Aspartate Amino Transf (AST/SGOT) 23 U/L (15-37) Alanine Aminotransferase (ALT/SGPT) 24 U/L (12-78) Alkaline Phosphatase 82 U/L (46-116) Total Protein 6.3 G/DL (6.4-8.2) L Albumin 1.8 G/DL (3.4-5.0) L Globulin 4.5 g/dL Albumin/Globulin Ratio 0.4 (1.0-2.7) L Current Medications Medications (Trade) Dose Ordered Sig/Virginie Route PRN Reason Start Time Stop Time Status Last Admin Dose Admin Acetaminophen (Tylenol) 650 mg Q4H PRN ORAL fever 12/19/19 19:00 01/18/20 18:59 01/01/20 13:29 Acetaminophen/ Hydrocodone Bitart ([place] 10/325) 1 tab Q4H PRN ORAL Moderate Pain (Pain Scale 4-6) 01/01/20 15:15 01/08/20 15:14 01/04/20 04:37 Acetaminophen/ Hydrocodone Bitart ([place] 10/325) 2 tab Q4H PRN ORAL Severe Pain (Pain Scale 7-10) 01/01/20 15:15 01/08/20 15:14 01/03/20 20:56 Daptomycin 250 mg/ Sodium Chloride 55 ml @ 100 mls/hr Q24H IV 12/24/19 16:00 01/06/20 23:59 01/03/20 16:19 Dextrose (Dextrose 50%) 25 ml Q30M PRN IV Hypoglycemia 12/19/19 19:00 03/18/20 18:59 Dextrose (Dextrose 50%) 50 ml Q30M PRN IV Hypoglycemia 12/19/19 19:00 03/18/20 18:59 Folic Acid (Folate) 2 mg DAILY ORAL 12/29/19 13:00 01/28/20 12:59 01/03/20 09:14 Gentamicin Protocol (Gentamicin pharmacy to dose) 1 ea DAILY PRN MISC Per rx protocol 12/24/19 13:00 01/23/20 12:59 Gentamicin Sulfate 300 mg/ Sodium Chloride 117.5 ml @ 117.5 mls/ hr Q24H IVPB 01/01/20 04:00 01/08/20 03:59 01/04/20 03:38 Heparin Sodium (Porcine) (Heparin 5000 units/ml) 5,000 units EVERY 12 HOURS SUBQ 12/19/19 21:00 02/02/20 20:59 01/03/20 21:03 Meropenem 2 gm/ Sodium Chloride 100 ml @ 200 mls/hr Q8HR IVPB 12/26/19 14:00 01/06/20 23:59 01/04/20 05:25 Ondansetron HCl (Zofran) 4 mg Q6H PRN IVP Nausea & Vomiting 12/19/19 19:00 01/18/20 18:59 Patient Own Medication (Patient's Own Med) 1 ea DAILY ORAL 12/21/19 18:00 01/20/20 17:59 01/03/20 09:28 Phosphorus (Phospha 250 Neutral) 500 mg BID ORAL 01/03/20 18:00 01/29/20 09:29 01/03/20 17:20 Polyethylene Glycol (Miralax) 17 gm DAILYPRN PRN ORAL Constipation 12/19/19 19:00 01/18/20 18:59 12/29/19 05:14 Potassium Chloride (K-Dur) 40 meq BID ORAL 01/03/20 18:00 03/28/20 12:59 01/03/20 17:21 Suellen Riojas M.D. Jan 04, 2020 07:53
[2020-01-04 08:00] VITALS: BP 96/53
[2020-01-04] MEDS: Phospha 250 Neutral tab ORAL SCH (08:25)
[2020-01-04] MEDS: SYMTUZA ORAL SCH (08:25)
[2020-01-04] MEDS: Heparin 5000 units/ml inj SUBQ SCH (08:32)
--- NOTE | 2020-01-04 11:09 | Pulmonology Progress Note ---
Subjective ROS Limited/Unobtainable: No Constitutional: Reports: no symptoms HEENT: Repors: no symptoms Allergies: Coded Allergies: CODEINE (Verified Allergy, Unknown, 02/05/10) Objective Last 24 Hour Vital Signs Date Time Temp Pulse Resp B/P (MAP) Pulse Ox O2 Delivery O2 Flow Rate FiO2 01/04/20 09:00 Room Air 01/04/20 08:00 98.2 89 18 96/53 (67) 97 01/04/20 04:00 98.1 86 20 104/63 (77) 97 01/04/20 00:00 98.2 76 16 90/57 (68) 94 01/03/20 21:00 Room Air 01/03/20 20:00 99.9 89 22 103/64 (77) 94 01/03/20 16:00 99.0 87 20 112/62 (79) 96 01/03/20 12:05 99.4 82 18 107/64 (78) 96 Intake and Output 01/03/20 01/04/20 19:00 07:00 Intake Total 1100 ml 517.5 ml Output Total 1400 ml 1300 ml Balance -300 ml -782.5 ml Intake Oral 600 ml 200 ml IV Total 500 ml 317.5 ml Output Urine Total 1400 ml 1300 ml # Bowel Movements 1 General Appearance: cachetic HEENT: normocephalic, atraumatic Respiratory: chest wall non-tender, lungs clear Cardiovascular: normal peripheral pulses, normal rate, regular rhythm Abdomen: normal bowel sounds, soft, non tender Genitourinary: normal external genitalia Extremities: no cyanosis Skin: no rash Neurologic: respiratory coordinator II-XII grossly normal Laboratory Tests 01/04/20 05:35: White Blood Count 14.5H, Red Blood Count 2.84L, Hemoglobin 9.3L, Hematocrit 27.1L, Mean Corpuscular Volume 95, Mean Corpuscular Hemoglobin 32.7H, Mean Corpuscular Hemoglobin Concent 34.3, Red Cell Distribution Width 17.6H, Platelet Count 312, Mean Platelet Volume 5.8L, Neutrophils (%) (Auto) 81.8H, Lymphocytes (%) (Auto) 10.5L, Monocytes (%) (Auto) 6.2, Eosinophils (%) (Auto) 1.1, Basophils (%) (Auto) 0.4, Sodium Level 135L, Potassium Level 3.7, Chloride Level 103, Carbon Dioxide Level 24, Anion Gap 8, Blood Urea Nitrogen 14, Creatinine 0.8, Estimat Glomerular Filtration Rate > 60, Glucose Level 103, Calcium Level 7.7L, Phosphorus Level 2.2L, Magnesium Level 1.8, Total Bilirubin 0.4, Aspartate Amino Transf (AST/SGOT) 23, Alanine Aminotransferase (ALT/SGPT) 24, Alkaline Phosphatase 82, Total Protein 6.3L, Albumin 1.8L, Globulin 4.5, Albumin/Globulin Ratio 0.4L Current Medications Medications (Trade) Dose Ordered Sig/Virginie Route PRN Reason Start Time Stop Time Status Last Admin Dose Admin Acetaminophen (Tylenol) 650 mg Q4H PRN ORAL fever 12/19/19 19:00 01/18/20 18:59 01/01/20 13:29 Acetaminophen/ Hydrocodone Bitart ([place] 10/325) 1 tab Q4H PRN ORAL Moderate Pain (Pain Scale 4-6) 01/01/20 15:15 01/08/20 15:14 01/04/20 04:37 Acetaminophen/ Hydrocodone Bitart ([place] 10/325) 2 tab Q4H PRN ORAL Severe Pain (Pain Scale 7-10) 01/01/20 15:15 01/08/20 15:14 01/03/20 20:56 Daptomycin 250 mg/ Sodium Chloride 55 ml @ 100 mls/hr Q24H IV 12/24/19 16:00 01/06/20 23:59 01/03/20 16:19 Dextrose (Dextrose 50%) 25 ml Q30M PRN IV Hypoglycemia 12/19/19 19:00 03/18/20 18:59 Dextrose (Dextrose 50%) 50 ml Q30M PRN IV Hypoglycemia 12/19/19 19:00 03/18/20 18:59 Folic Acid (Folate) 2 mg DAILY ORAL 12/29/19 13:00 01/28/20 12:59 01/04/20 08:25 Gentamicin Protocol (Gentamicin pharmacy to dose) 1 ea DAILY PRN MISC Per rx protocol 12/24/19 13:00 01/23/20 12:59 Gentamicin Sulfate 300 mg/ Sodium Chloride 117.5 ml @ 117.5 mls/ hr Q24H IVPB 01/01/20 04:00 01/08/20 03:59 01/04/20 03:38 Heparin Sodium (Porcine) (Heparin 5000 units/ml) 5,000 units EVERY 12 HOURS SUBQ 12/19/19 21:00 02/02/20 20:59 01/04/20 08:32 Meropenem 2 gm/ Sodium Chloride 100 ml @ 200 mls/hr Q8HR IVPB 12/26/19 14:00 01/06/20 23:59 01/04/20 05:25 Ondansetron HCl (Zofran) 4 mg Q6H PRN IVP Nausea & Vomiting 12/19/19 19:00 01/18/20 18:59 Patient Own Medication (Patient's Own Med) 1 ea DAILY ORAL 12/21/19 18:00 01/20/20 17:59 01/04/20 08:25 Phosphorus (Phospha 250 Neutral) 500 mg TID ORAL 01/04/20 13:00 01/29/20 09:29 Polyethylene Glycol (Miralax) 17 gm DAILYPRN PRN ORAL Constipation 12/19/19 19:00 01/18/20 18:59 12/29/19 05:14 Potassium Chloride (K-Dur) 40 meq BID ORAL 01/03/20 18:00 03/28/20 12:59 01/04/20 08:26 Assessment/Plan Problems: (1) Hypercalcemia (2) Cellulitis and necrosis of penis (3) Penile abscess (4) Catheter-associated urinary tract infection (5) Sepsis (6) Urethral cancer (7) Abscess Assessment/Plan Ca is better getting better WBC still high continue abx symptomatic treatment dvt prophylaxis. dc home ID decide about what abx to give in senior care Jasbir Larsen MD Jan 04, 2020 11:09
--- NOTE | 2020-01-04 11:43 | NUR ---
NURSE NOTES: called Dr jennings's office and spoke with Sloan regarding abx upon discharge order. will cont to monitor. Addendum: 01/04/20 at 1523 by KENNETH KWAN LVN DR JENNINGS CALLED BACK AND REFERRED ABX FROM HER NOTES FOR MED REC UPON D/C. AWAITING FOR SATHYA TONY FOR ETA AND TRANSFER REPORT FOR THIS PATIENT. WILL CONT TO MONITOR.
[2020-01-04 12:00] VITALS: BP 103/60
--- NOTE | 2020-01-04 12:15 | Nephrology Progress Note ---
Assessment/Plan Problem List: (1) Hypercalcemia (2) Urethral cancer (3) Penile abscess (4) Encephalopathy Plan January 03: Labs reviewed. Medication reviewed. Serum calcium normalized. Abnormal electrolyte and chemistries addressed. Continue per consultants. January 02: Labs are reviewed. Medication reviewed. Serum calcium now within acceptable range. Will DC IV fluid. Will DC nasal calcitonin. Adjust phosphorus and potassium supplements. Continue per current treatment plan. Check labs tomorrow. January 01: Calcium lowering. Abnormal electrolyte addressed. Chest x-ray ordered. PTH results within normal limit. December 31: Serum calcium within normal limit of range, but corrected for low albumin is still elevated. Will decrease hydration. Stop IV Lasix. Abnormal electrolytes addressed. Continue to monitor chemistries and electrolytes December 30: Serum calcium continues to decline. Continue hydrate. Down on IV Lasix to every 12 hours. Continue to monitor calcium phosphorus and magnesium. Potassium and phosphorus supplements given. December 29: Serum calcium remains elevated however is going down on current treatment plan. Abnormal electrolytes addressed. Continue to monitor serum calcium. December 28: IV hydration 125 cc an hour Lasix 20 mg every 8 hours Nasal calcitonin 1 dose of pamidronate 90 mg IV piggyback Waiting for PTH and PTH related protein results Replace low folic acid Continue to monitor electrolytes and chemistries Per orders Subjective ROS Limited/Unobtainable: No Constitutional: Reports: malaise Objective Objective Last 24 Hour Vital Signs Date Time Temp Pulse Resp B/P (MAP) Pulse Ox O2 Delivery O2 Flow Rate FiO2 01/04/20 09:00 Room Air 01/04/20 08:00 98.2 89 18 96/53 (67) 97 01/04/20 04:00 98.1 86 20 104/63 (77) 97 01/04/20 00:00 98.2 76 16 90/57 (68) 94 01/03/20 21:00 Room Air 01/03/20 20:00 99.9 89 22 103/64 (77) 94 01/03/20 16:00 99.0 87 20 112/62 (79) 96 Intake and Output 01/03/20 01/04/20 19:00 07:00 Intake Total 1100 ml 517.5 ml Output Total 1400 ml 1300 ml Balance -300 ml -782.5 ml Intake Oral 600 ml 200 ml IV Total 500 ml 317.5 ml Output Urine Total 1400 ml 1300 ml # Bowel Movements 1 Current Medications Medications (Trade) Dose Ordered Sig/Virginie Route PRN Reason Start Time Stop Time Status Last Admin Dose Admin Acetaminophen (Tylenol) 650 mg Q4H PRN ORAL fever 12/19/19 19:00 01/18/20 18:59 01/01/20 13:29 Acetaminophen/ Hydrocodone Bitart ([place] 10/325) 1 tab Q4H PRN ORAL Moderate Pain (Pain Scale 4-6) 01/01/20 15:15 01/08/20 15:14 01/04/20 04:37 Acetaminophen/ Hydrocodone Bitart ([place] 10/325) 2 tab Q4H PRN ORAL Severe Pain (Pain Scale 7-10) 01/01/20 15:15 01/08/20 15:14 01/03/20 20:56 Daptomycin 250 mg/ Sodium Chloride 55 ml @ 100 mls/hr Q24H IV 12/24/19 16:00 01/06/20 23:59 01/03/20 16:19 Dextrose (Dextrose 50%) 25 ml Q30M PRN IV Hypoglycemia 12/19/19 19:00 03/18/20 18:59 Dextrose (Dextrose 50%) 50 ml Q30M PRN IV Hypoglycemia 12/19/19 19:00 03/18/20 18:59 Folic Acid (Folate) 2 mg DAILY ORAL 12/29/19 13:00 01/28/20 12:59 01/04/20 08:25 Gentamicin Protocol (Gentamicin pharmacy to dose) 1 ea DAILY PRN MISC Per rx protocol 12/24/19 13:00 01/23/20 12:59 Gentamicin Sulfate 300 mg/ Sodium Chloride 117.5 ml @ 117.5 mls/ hr Q24H IVPB 01/01/20 04:00 01/08/20 03:59 01/04/20 03:38 Heparin Sodium (Porcine) (Heparin 5000 units/ml) 5,000 units EVERY 12 HOURS SUBQ 12/19/19 21:00 02/02/20 20:59 01/04/20 08:32 Meropenem 2 gm/ Sodium Chloride 100 ml @ 200 mls/hr Q8HR IVPB 12/26/19 14:00 01/06/20 23:59 01/04/20 05:25 Ondansetron HCl (Zofran) 4 mg Q6H PRN IVP Nausea & Vomiting 12/19/19 19:00 01/18/20 18:59 Patient Own Medication (Patient's Own Med) 1 ea DAILY ORAL 12/21/19 18:00 01/20/20 17:59 01/04/20 08:25 Phosphorus (Phospha 250 Neutral) 500 mg TID ORAL 01/04/20 13:00 01/29/20 09:29 Polyethylene Glycol (Miralax) 17 gm DAILYPRN PRN ORAL Constipation 12/19/19 19:00 01/18/20 18:59 12/29/19 05:14 Potassium Chloride (K-Dur) 40 meq BID ORAL 01/03/20 18:00 03/28/20 12:59 01/04/20 08:26 Laboratory Tests 01/04/20 05:35: White Blood Count 14.5H, Red Blood Count 2.84L, Hemoglobin 9.3L, Hematocrit 27.1L, Mean Corpuscular Volume 95, Mean Corpuscular Hemoglobin 32.7H, Mean Corpuscular Hemoglobin Concent 34.3, Red Cell Distribution Width 17.6H, Platelet Count 312, Mean Platelet Volume 5.8L, Neutrophils (%) (Auto) 81.8H, Lymphocytes (%) (Auto) 10.5L, Monocytes (%) (Auto) 6.2, Eosinophils (%) (Auto) 1.1, Basophils (%) (Auto) 0.4, Sodium Level 135L, Potassium Level 3.7, Chloride Level 103, Carbon Dioxide Level 24, Anion Gap 8, Blood Urea Nitrogen 14, Creatinine 0.8, Estimat Glomerular Filtration Rate > 60, Glucose Level 103, Calcium Level 7.7L, Phosphorus Level 2.2L, Magnesium Level 1.8, Total Bilirubin 0.4, Aspartate Amino Transf (AST/SGOT) 23, Alanine Aminotransferase (ALT/SGPT) 24, Alkaline Phosphatase 82, Total Protein 6.3L, Albumin 1.8L, Globulin 4.5, Albumin/Globulin Ratio 0.4L Height (Feet): 5 Height (Inches): 6.00 Weight (Pounds): 132 General Appearance: no apparent distress Respiratory/Chest: decreased breath sounds Abdomen: soft Objective No change Keaton Doran MD Jan 04, 2020 12:15
[2020-01-04] MEDS ORDERED: DAPTOMYCIN350 MG IVPB (12:49)
[2020-01-04] MEDS ORDERED: MEROPENEM1 GM IVPB (12:51)
[2020-01-04] MEDS ORDERED: GENTAMICIN100 MG/10 IVPB (12:53)
[2020-01-04] MEDS ORDERED: Phospha 250 Neutral tab ORAL SCH ×2 (13:00→14:37)
--- NOTE | 2020-01-04 13:59 | Surgery Progress Note ---
Surgery Progress Note Subjective Symptoms: improved, tolerating diet, passing flatus, BM Objective Last 24 Hour Vital Signs Date Time Temp Pulse Resp B/P (MAP) Pulse Ox O2 Delivery O2 Flow Rate FiO2 01/04/20 12:00 97.0 83 18 103/60 (74) 97 01/04/20 09:00 Room Air 01/04/20 08:00 98.2 89 18 96/53 (67) 97 01/04/20 04:00 98.1 86 20 104/63 (77) 97 01/04/20 00:00 98.2 76 16 90/57 (68) 94 01/03/20 21:00 Room Air 01/03/20 20:00 99.9 89 22 103/64 (77) 94 01/03/20 16:00 99.0 87 20 112/62 (79) 96 I&O Intake and Output 01/03/20 01/04/20 19:00 07:00 Intake Total 1100 ml 517.5 ml Output Total 1400 ml 1300 ml Balance -300 ml -782.5 ml Intake Oral 600 ml 200 ml IV Total 500 ml 317.5 ml Output Urine Total 1400 ml 1300 ml # Bowel Movements 1 Dressing: saturated Cardiovascular: RSR Respiratory: decreased breath sounds Abdomen: soft, non-tender, present bowel sounds Extremities: no edema, no tenderness, no cyanosis Laboratory Tests Test 01/04/20 05:35 White Blood Count 14.5 K/UL (4.8-10.8) H Red Blood Count 2.84 M/UL (4.70-6.10) L Hemoglobin 9.3 G/DL (14.2-18.0) L Hematocrit 27.1 % (42.0-52.0) L Mean Corpuscular Volume 95 FL (80-99) Mean Corpuscular Hemoglobin 32.7 PG (27.0-31.0) H Mean Corpuscular Hemoglobin Concent 34.3 G/DL (32.0-36.0) Red Cell Distribution Width 17.6 % (11.6-14.8) H Platelet Count 312 K/UL (150-450) Mean Platelet Volume 5.8 FL (6.5-10.1) L Neutrophils (%) (Auto) 81.8 % (45.0-75.0) H Lymphocytes (%) (Auto) 10.5 % (20.0-45.0) L Monocytes (%) (Auto) 6.2 % (1.0-10.0) Eosinophils (%) (Auto) 1.1 % (0.0-3.0) Basophils (%) (Auto) 0.4 % (0.0-2.0) Sodium Level 135 MMOL/L (136-145) L Potassium Level 3.7 MMOL/L (3.5-5.1) Chloride Level 103 MMOL/L (98-107) Carbon Dioxide Level 24 MMOL/L (21-32) Anion Gap 8 mmol/L (5-15) Blood Urea Nitrogen 14 mg/dL (7-18) Creatinine 0.8 MG/DL (0.55-1.30) Estimat Glomerular Filtration Rate > 60 mL/min (>60) Glucose Level 103 MG/DL (74-106) Calcium Level 7.7 MG/DL (8.5-10.1) L Phosphorus Level 2.2 MG/DL (2.5-4.9) L Magnesium Level 1.8 MG/DL (1.8-2.4) Total Bilirubin 0.4 MG/DL (0.2-1.0) Aspartate Amino Transf (AST/SGOT) 23 U/L (15-37) Alanine Aminotransferase (ALT/SGPT) 24 U/L (12-78) Alkaline Phosphatase 82 U/L (46-116) Total Protein 6.3 G/DL (6.4-8.2) L Albumin 1.8 G/DL (3.4-5.0) L Globulin 4.5 g/dL Albumin/Globulin Ratio 0.4 (1.0-2.7) L Plan Problems: (1) Penile abscess Assessment & Plan: 61-year-old male with known urethral cancer status post chemoradiation presented with worsening wound necrosis and potential infection of the site. Patient seen prior penis necrosis falling off now remaining soft tissue in the malignancy region also with necrotic nonviable tissue identified. Drainage is serosanguineous at times sometimes serious and does not seem significant purulent. The cellulitis is minimal. Patient's labs noted. Given patient's history condition immunocompromise status recommend IV antibiotics. I discussed the patient and considerations for debriding some of the nonviable tissue though this will not in any way improve his cancer stated could help with local wound care. Patient expressed understanding we will continue to follow with local care and provide as necessary. No drainage of abscess identified at this time we will monitor thank you f/u with primary onc as per heme labs noted on rx wounds and slough/necrotic tissue debridement at bedside penis is fully necrotic and hanging off. will discuss consideration of operative debridement including penis. not recommended at bedside given likely bleeding with debridement. does not want further debridement at this time states feels much better wound less foul odor after last clean ing d/c planning (2) Urethral cancer (3) Abscess (4) Sepsis (5) Catheter-associated urinary tract infection Romain Li Jan 04, 2020 13:59
--- NOTE | 2020-01-04 16:12 | NUR ---
*-*DISCHARGE PLANNED*-* PATIENT HAS BEEN ACCEPTED AND WILL BE DISCHARGED BACK TO: [facility] P: [phone] FOR NURSE TO NURSE REPORT ROOM# 20.[facility] SET FOR 4PM S/W DIONISIO [id number]. S/W PATIENTS FAMILY [facility], WHO IS IN AGREEMENT WITH DISCHARGE PLAN.
--- NOTE | 2020-01-04 16:19 | NUR ---
NURSE NOTES: DISCHARGE TO [facility] WITH IV HEPLOCK INTACT ON LH 22G DUE TO IVPB ABX PER DR VILLARREAL ORDER. REFER TO PROGRESS NOTES. PORTACATH CLEAN AND INTACT. WOUND PHOTO TAKEN AND UPLOADED AND TREATED. REPORT GIVEN TO MAAME @ [facility]. SPOKE WITH GUERITA AND LEFT VM TO VON NEXT OF KINS. IN STABLE CONDITION. NEW MEDS GIVEN TO AMBULANCE PERSONNEL. PERSONAL BELONGINGS REVIEWED AND NOTED. SUPRAPUBIC INTACT AND DRAINS WELL. VSS. AFEBRILE.
--- NOTE | 2020-01-05 15:04 | Discharge Summary ---
Discharge Summary Discharge Summary _ DATE OF ADMISSION: 12/19/2019 DATE OF DISCHARGE: 01/04/2020 DISCHARGED BY: Dr. Enriquez REASON FOR ADMISSION: 59 years old male with past medical history of HIV , on ART , urethral cancer, history of penile abscess , presented for evaluation of penile abscess. Patient apparently had multiply infections secondary to his urethral malignancy. He followed up by urologist and oncologist. Patient completed chemotherapy and undergone radiation. He denied fever and chills. [place] [facility] [place]. Currently he presented from the longterm facility due to concern of worsening malignancy. Upon evaluation vital signs were stable . Laboratory work-up revealed leukocytosis with WBC 16.8 , stable hemoglobin , hematocrit and platelet count. Urinalysis revealed +1 protein , +3 blood , positive nitrate , +2 leukocyte esterase , pyuria and many bacteria. Lactic acid 1.0. Sodium 132. BUN 22 ,creatinine 1.4 . AST 20 ,ALT 15. In the emergency department patient pancultured , received empiric vancomycin and meropenem, and admitted for further management. CONSULTANTS: pulmonary/critical care Dr. Larsen ID specialist Dr. Rider licensed marine engineer Dr. Doran urologist Dr. Larsen javascript programmer/oncologist Dr. Horta surgery [facility] COURSE: Patient admitted to medical surgical floor. Patient started on empiric antibiotic as per ID specialist recommendation. Blood cultures were negative. Urine culture revealed Enterobacter . Wound culture revealed Pseudomonas aeruginosa, E. coli ESBL and Enterococci gallinarum . Antibiotic regimen was optimized as per ID specialist recommendation. Patient remained afebrile, but had persistent leukocytosis. ID specialist recommended total 14 days course ; end date of antibiotics 01/05. Continue aggressive wound care. Patient was diagnosed with HIV 20 years ago . Patient was on Symtuza. Surgeon seen and evaluated patient . Patient undergone debridement at the bedside. Surgeon recommended consider operative debridement, including penis. Patient with a history of urethral cancer , diagnosed in 2019, status post chemotherapy x12 session and radiation x8 sessions and surgical intervention. Patient follows-up at [facility]. DVT prophylaxis provided.. Livestock Inspector recommended maintain suprapubic catheter ; last was changed on December 25. Hand irrigate as needed. Livestock Inspector closely followed. Renal parameters and electrolytes were closely monitored , electrolytes corrected as needed , nephrotoxic's were avoided . Patient noted to have hypercalcemia. Patient started on diuretics, hydration, and nasal calcitonin , also received 1 dose of Aredia. Calcium stabilized patient. Prior to discharge all electrolytes stable. Supportive care provided. Pain management was addressed as needed. Bowel regimen instituted. Patient clinically stabilized and was ready for discharge to longterm facility for continuation of care. FINAL DIAGNOSES: Penile necrotic wound infection, polymicrobial E coli ESBL, Pseudomonas, Enterococci) Penile abscess UTI with Enterobacter Urethral cancer, status post chemo , immunotherapy, radiation and surgical intervention Leukocytosis -persistent HIV Urinary retention and chronic suprapubic catheter Mild acute kidney injury Encephalopathy Anemia of chronic disease Probably neurogenic bladder neurogenic bladder DISCHARGE MEDICATIONS: See Medication Reconciliation list. DISCHARGE INSTRUCTIONS: Patient was discharged to the longterm facility. Follow up with medical doctor at the facility. 59 years old male I have been assigned to dictate discharge summary for this account. I was not involved in the patient's management. Shahana Ku NP Jan 05, 2020 15:04
== END 2020-01-04 16:15 | DRG 720 ==
LOC: EDBD 15:41 → EDUNIT# 15:41 → EMR 16:00 → EDBEDREQ 16:07 → 4E 17:14 → EDBEDREQ 18:14 → 4E 12-24 16:50
PROC: 0JDC3ZZ Extraction of Pelvic Region Subcutaneous Tissue and Fascia, Percutaneous Approach (ICD-10-PCS; principal; 2019-12-23)
PROC: 0JDB3ZZ Extraction of Perineum Subcutaneous Tissue and Fascia, Percutaneous Approach (ICD-10-PCS; principal; 2019-12-23)
DX: A41.9 Sepsis, unspecified organism (principal); T83.518A Infection and inflammatory reaction due to other urinary catheter, initial encounter; N39.0 Urinary tract infection, site not specified; N48.21 Abscess of corpus cavernosum and penis; C68.0 Malignant neoplasm of urethra; N17.9 Acute kidney failure, unspecified; R64 Cachexia; Z68.21 Body mass index [BMI] 21.0-21.9, adult; N48.29 Other inflammatory disorders of penis; R33.9 Retention of urine, unspecified; N31.9 Neuromuscular dysfunction of bladder, unspecified; R31.9 Hematuria, unspecified; R80.9 Proteinuria, unspecified; E83.52 Hypercalcemia; D64.9 Anemia, unspecified; G93.40 Encephalopathy, unspecified
CPT/HCPCS: 36415; 71045; 80048; 80053; 80170; 80202; 81001; 81003; 82330; 82550; 82607; 82728; 82746; 82977; 83519; 83540; 83550; 83605; 83735; 83880; 83970; 84100; 84134; 84443; 84550; 85025; 85610; 85651; 85730; 86140; 87040; 87070; 87081; 87086; 87181; 87205; 94664; 96361; 96365; 96367; 99285; C9399; J2430; J7030; J8499